=== PATIENT | female | born 1940 | race Caucasian/White ===

== ENCOUNTER 2020-02-07 08:04 | Outpatient (REF) | payer MEDICARE, OTHER, SELFPAY ==
--- NOTE | 2020-02-07 10:24 | MHC.AU.P13 ---
Adult Audiological Evaluation Date of Visit: 02/07/20 Reason for Appointment: Audiological evaluation due to decrease in hearing. Ms. Bedoya reports that she has previously been tested and diagnosed with a mild hearing loss. She has been using [id number] hearing aids that she purchased through a magazine and notes that they work well for her. Does patient feel they have a hearing loss?: Yes If Yes, Which Ear?: Both Ears When Was Hearing Difficulty First Noticed?: Two years ago Has hearing been tested previously?: Yes Previous Hearing Test Results: Tested in [place] in 2018, results not available to be reviewed today. 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 She notes that she got a concussion several years ago. Allergies: Melons Medication List: Losartan 100 mg, Hydrochlorothiazide 25 mg, Baby aspirin 81 mg, Fish oil, Butalbital 25 mg, Metoprolol 25 mg, Clopidogrel 75 mg, Latanoprost 125 mg, Vitamins Otoscopy: Right Ear: Mostly occluded cerumen removed with suction and curette Left Ear: Non-occluding cerumen removed with curette and alligator forceps Tympanometry: Right Ear: Not performed at today's visit Left Ear: Not performed at today's visit Hearing Evaluation: Transducer(s) Used: Circumaural Headphones, Bone Conduction Method: Conventional Audiometry Stimuli Used: Pure Tones Right Ear: Description of Hearing: Normal hearing at 250 Hz, sloping to a mild to moderately severe sensorineural hearing loss from 500-8000 Hz. Left Ear: Description of Hearing: Normal hearing at 250 Hz, sloping to a mild to moderately severe sensorineural hearing loss from 500-8000 Hz. Speech Recognition Threshold (SRT): Method Used: Monitored Live Voice Stimuli Used: Spondee Words Right Ear: 40 dBHL Left Ear: 40 dBHL Word Discrimination: Method: Recorded Lists Word Lists Used: NU-6 Right Ear: 92% at 80 dBHL Left Ear: 80% at 80 dBHL Recommendations: Recommendations: Audiological re-evaluation in one year. Trial with amplification is recommended. Recommendations (Other): Recommend a trial with custom hearing aids if her [id number] hearing aids are no longer meeting her needs. Diagnosis: Primary Diagnosis: H90.3 Bilateral Sensorineural Hearing Loss Secondary Diagnosis: H61.23 Impacted Cerumen, Bilateral Services Performed: Services Performed: Comprehensive Audiological Evaluation (CPT 53111) Signature: Provider: Tamara Kim, CCC-A
== END 2020-02-07 08:05 | disposition home or self-care (01) ==
LOC: HO.SH 08:04
PROVIDERS: PCP Nurse Practitioner Family; Referring Provider Nurse Practitioner Family; Visit Provider Nurse Practitioner Family
DX: H90.3 Sensorineural hearing loss, bilateral (principal); H61.23 Impacted cerumen, bilateral
CPT/HCPCS: 92557

== ENCOUNTER 2020-02-07 09:41 | Outpatient (REF) | payer SELFPAY | END 2020-02-07 09:42 | disposition home or self-care (01) | LOC: HO.HAP 09:41 | PROVIDERS: Visit Provider Nurse Practitioner Family | DX: Z46.1 Encounter for fitting and adjustment of hearing aid (principal); H90.3 Sensorineural hearing loss, bilateral | CPT/HCPCS: 92700 ==

== ENCOUNTER 2021-02-11 08:07 | Outpatient (REF) | payer MEDICARE, OTHER, SELFPAY ==
--- NOTE | 2021-02-13 14:24 | MHC.AU.ANO ---
Adult Audiological Evaluation Date of Visit: 02/11/21 Project Management Intern Used: Not Applicable Reason for Appointment: Audiologic re-evaluation due to increasing speech understanding difficulties. Lina is accompanied today by her daughter Aminah who reports her mother has tried 3 different [id number] hearing devices over the past year. Lina can often hear people talking or sounds from a distance, but is frequently cannot understand what is said. She has difficulty with the fit and comfort of the earpieces of the device. These problems are creating significant frustration and adding to her anxiety. Lina and her daughter report her anxiety is being treated by her physician with a new medication and the dosage was recently increased; however, her symptoms have also increased. Does patient feel they have a hearing loss?: Yes If Yes, Which Ear?: Both Ears Has hearing been tested previously?: Yes Previous Hearing Test Results: Normal hearing at 250 Hz, sloping to a moderately-severe sensorineural hearing loss bilaterally with 92% speech understanding for the right ear and 80% for the left ear. 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 Allergies: Melons Medication List: Escitalopram, Clopidogrel, Hydochlorothiazide, Ezetimibe, Aspirin, Losartan, Metoprolol, Fish Oil, Vitamin C, Multivitamin Otoscopy: Right Ear: Unremarkable Left Ear: Unremarkable Tympanometry and Otoacoustic Emissions Not performed at today's visit to reduce the time of testing as Lina was very anxious today. Hearing Evaluation: Transducer(s) Used: Insert Earphones Bone Conduction Method: Conventional Audiometry Stimuli Used: Pure Tones Right Ear: Description of Hearing: Borderline normal threshold at 250 Hz, sloping to a moderately-severe high frequency sensorineural hearing loss. Left Ear: Description of Hearing: Borderline normal threshold at 250 Hz, sloping to a moderately-severe high frequency sensorineural hearing loss. Speech Recognition Threshold (SRT): Method Used: Monitored Live Voice Stimuli Used: Spondee Words Right Ear: 45 dB HL Left Ear: 45 dB HL Word Discrimination: Method: Recorded Lists Word Lists Used: NU-6 Right Ear: 92% at 85 dB HL Left Ear: 76% at 85 dB HL Comparison: Compared to the most recent evaluation: Thresholds have decreased bilaterally and word discrimination score has decreased in the left ear. Recommendations: Trial with custom [id number] hearing aids are recommended. Medical clearance from a physician is required before fitting. Hearing Aid Fitting will be scheduled when all materials arrive. Audiological re-evaluation in one year. Diagnosis: Primary Diagnosis: H90.3 Bilateral Sensorineural Hearing Loss Services Performed: Comprehensive Audiological Evaluation (CPT 46169) Signature: Provider: Tamara Garcia, CCC-A
--- NOTE | 2021-02-13 14:40 | MHC.AU.HAS ---
Hearing Aid Evaluation Date of Visit: 02/11/21 Historical Information: Description of Hearing: Borderline normal thresholds sloping to a moderately-severe sensorineural hearing loss bilaterally. Current personal amplification information, if applicable: OTC slim tube BTE Summary: Due to difficulty of fit of OTC hearing aids and significant communication difficulties, binaural rechargeable [id number] with canal locks is recommended Hearing Aid Prescription: Based on the individual?s shared listening needs, communication environments, dexterity, desire for connectivity, and personal preferences, the following prescription for amplification has been made: Right ear: Home Health Travel Pt: [employer] Model: Evolve AI 1600 CIC-R with canal lock Battery Size: 312 Color: Chisana Left ear: Left ear prescription to be same as Right Hearing Aid above: Home Health Travel Pt: Jena Model: Evolve AI 1600 CIC-R with canal lock Battery Size: 312 Color: Chis[place] Plan of Care: Patient wishes to purchase hearing aids as prescribed Action Taken/Action Needed: Earmold Impressions Taken Medical Clearance to be requested from PCP/ENT Hearing Instrument Fitting to be scheduled when materials arrive Comments: Primary Diagnosis: H90.3 Bilateral Sensorineural Hearing Loss Signature: Provider: Rayna Garcia, CCC-A
--- NOTE | 2021-02-13 14:42 | MHC.AU.MED ---
Medical Clearance for Hearing Instrumentation Date: 02/13/21 Patient Name: Lina Bedoya Date of : 1940 Primary Care Provider: Referring Provider: Walker Floyd MD We have seen your patient on 02/11/21 and have determined that they are a candidate for amplification (See accompanying report). Specifically, they would benefit from: Hearing aid use in both ears There is a statute that addresses Medical Evaluation Requirements prior to fitting a patient with a hearing aid. According to [place] statute 265 CMR:6.03(1), (a) General. Except as provided in 265 CMR 6.03(1)(b), a hearing aid consultant shall not sell a hearing aid unless the prospective user has presented to the hearing aid consultant a written statement signed by a licensed physician that states that the patient's hearing loss has been medically evaluated and the patient may be considered a candidate for a hearing aid. The medical evaluation must have taken place within the preceding six months. Please note: Due to the [place] Statute referenced above, we cannot accept a signature other than that of a licensed physician. H[employer] VENDOR and PA signatures cannot be accepted. I am in agreement with the above recommendation. There is no medical contraindication for hearing instrumentation. Physician Signature Date Physician Name (Printed)
== END 2021-02-11 08:08 | disposition home or self-care (01) ==
LOC: HO.SH 08:07
PROVIDERS: Visit Provider Internal Medicine
DX: H90.3 Sensorineural hearing loss, bilateral (principal)
CPT/HCPCS: 92557

== ENCOUNTER 2021-02-11 12:50 | Inpatient (IN) | payer MEDICARE, OTHER, SELFPAY ==
[2021-02-11 14:04] VITALS: BP 163/76; PULSE 80; RESP 18; TEMP 36.6; O2SAT 99; BMI 19.6
--- NOTE | 2021-02-11 17:03 | ED_ITS ---
HPI - General Adult General Chief complaint: General Medical Stated complaint: Anxiety Time Seen by Provider: 02/11/21 16:48 Source: patient and family (Daughter) Mode of arrival: ambulatory Limitations: no limitations History of Present Illness HPI narrative: Patient comes to emergency room complaining of worsening anxiety. Patient was started on Lexapro 5 mg 2 weeks ago, since it was not having any significant affect, less than a week ago it was increased to 10 mg. The patient's daughter reports that since then, the patient is more anxious, having panic attacks, seems to be more confused. Patient denies auditory or visual hallucinations. Related Data Allergies Allergy/AdvReac Type Severity Reaction Status Date / Time melons Allergy Unknown throat Uncoded 08/13/11 00:00 sweling Review of Systems Review of Systems: Constitutional : No Weight loss, No Fever, No Chills, No Night Sweats, No Fatigue, No Malaise ENT/Mouth : No Hearing loss, No Ear Pain, No Nasal Congestion, No Sinus Pain, No Hoarseness, No sore throat, No Rhinorrhea, No Swallowing Difficulty Eyes: No Eye Pain, No Swelling, No Redness, No Foreign Body, No Discharge, No Vision Changes Cardiovascular : No Chest Pain, No SOB, No Dyspnea on Exertion, No Orthopnea, No Edema, No Palpitations Respiratory : No Cough, No Sputum, No Wheezing, No Smoke Exposure, No Dyspnea Gastrointestinal : No Nausea, No Vomiting, No Diarrhea, No Constipation, No abdominal Pain, No Hematochezia, No Melena Genitourinary : no irregular bleeding, No Dysuria, No Urinary Frequency, No Hematuria, No Urinary Incontinence, No Urgency, No Flank Pain, No Urinary Flow Changes, No Hesitancy Musculoskeletal : No joint pain, No Myalgias, No Joint Swelling Skin : No Skin Lesions, No rash Neuro : No Weakness, No Numbness, No Paresthesias, No Loss of Consciousness, No Dizziness, No Headache Psych : Complaining of anxiety, panic attacks, No Depression, No SI/HI/AH/VH, No Social Issues, Heme/Lymph: No Bruising, No Bleeding,No Lymphadenopathy Endocrine : No Polyuria, No Polydipsia, No Temperature Intolerance PMFSH Past Medical History Medical History HTN (hypertension) Myocardial infarct, old Surgical History H/O heart artery stent Social History Social History Advance Directives: Yes Advance Directives Information Provided: No Advance Directives on File: No Physical Exam Vital Signs: Vital Signs: Last Vital Signs Temp 97.1 F 02/11/21 17:24 Pulse 74 02/11/21 17:24 Resp 16 02/11/21 17:24 BP 194/80 H 02/11/21 17:24 Pulse Ox 97 02/11/21 17:24 Body Mass Index 19.6 Const: Other: Appearance: Alert. Oriented X3. Seems very anxious, noted she keeps drinking water , but said away for a few seconds, . Bottle water again and drinks a few sips and repeats Eyes: Pupils equal, round and reactive to light. ENT: Pharynx normal. Neck: Normal inspection. Neck supple. No lymph nodes noted. No crepitus CVS: Normal heart rate and rhythm. Pulses normal. Normal S1 and S2, loud +3 sys tolic murmur latter in the right sternal border Respiratory: No respiratory distress. Breath sounds normal. No Wheezing. No rales Abdomen: Soft and nontender. No rigidity. No distention. good BS x4 Skin: Skin warm and dry. Normal skin color. Normal skin turgor. Extremities: No lower extremity edema.No Lacerations. No Rash Neuro: Oriented X 3. No motor deficit. No sensory deficit. Moving all extermities. No slurred speech. Course Course Course Narrative: I discussed with the patient's daughter that the patient's symptoms might not be just related to anxiety. Patient may have an electrolyte abnormality if she is drinking too much water, hyponatremia can cause confusion. Also she may have a urinary tract infection. In the meantime, I asked the patient's daughter to remove all fluids from the patient's reach. A suspected, sodium is 116. Nephrology consult pending. 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 At this time, there was a critical shortage in ICU beds at [facility], no transfers are being taken at [facility] due to the same issue, as well as [facility]. I spoke with Dr. Meyer from nephrology. Given our current situation, patient will be going to the floor. Patient will be started on 30 g of urea powder PO b.i.d., patient will be NPO except meds until the morning, patient needs to be in a telemetry bed, sodium needs to be monitored every 4 hours, goal is to increase the sodium to 126 by 19:30 tomorrow I discussed the patient with our hospitalist Dr. Looney. Patient admitted to the floor, any acute changes in labs are to be reported immediately to Dr. Meyer Medical Decision Making Lab Data Result diagrams: 02/11/21 17:35 02/11/21 17:35 Labs: Lab Results 02/11/21 02/11/21 02/11/21 Range/Units 17:35 17:35 17:35 WBC 7.8 (4.8-10.8) X10*3/uL RBC 3.87 L (4.20-5.50) X10*6/uL Hgb 12.1 (12.0-16.0) g/dl Hct 33.2 L (37.0-47.0) % MCV 85.8 (80.0-98.0) fL MCH 31.3 (27.0-33.0) pg MCHC 36.4 H (31.0-35.0) g/dl RDW 11.8 (11.0-16.0) % Plt Count 368 (160-400) X10*3/uL MPV 7.8 L (9.4-12.3) fL Immature Gran % (Auto) 0.3 (0.0-0.4) % Neut % (Auto) 60.2 (45-73) % Lymph % (Auto) 28.7 (20-40) % [place] % (Auto) 9.7 (2-11) % Eos % (Auto) 0.8 (0-4) % Baso % (Auto) 0.3 (0-2) % Lymph # (Auto) 2.2 (1.2-4.9) X10*3/uL [place] # (Auto) 0.8 (0.1-1.2) X10*3/uL Eos # (Auto) 0.1 (0.0-0.4) X10*3/uL Baso # (Auto) 0.0 (0.0-0.2) X10*3/uL Abs Immat Gran (auto) 0.02 (0.00-0.03) X10*3/uL Absolute Neuts (auto) 4.7 (2.0-8.3) x10*3/uL Absolute Nucleated RBC 0.000 (0.0-0.012) X10*3/uL Nucleated RBC % (auto) 0.0 (0.0-0.2) /100WBC Sodium 116 L* (135-145) mmol/L Potassium 2.9 L (3.3-5.1) mmol/L Chloride 81 L (96-108) mmol/L Carbon Dioxide 25 (22-29) mmol/L Anion Gap 13 (12-20) BUN 8 L (9-16) mg/dL Creatinine 0.61 (0.5-1.4) mg/dL Estim Creat Clear Calc 55.7 Estimated GFR > 60 Random Glucose 155 H (60-115) mg/dL Calcium 9.0 (8.4-10.2) mg/dL Total Bilirubin 0.5 (0.0-1.0) mg/dL Direct Bilirubin 0.2 (0.0-0.5) mg/dL AST 21 (5-31) U/L ALT 18 (0-31) U/L Alkaline Phosphatase 83 (39-117) U/L Total Protein 6.6 (6.5-8.0) g/dL Albumin 4.2 (3.5-5.0) g/dL Urine Color STRAW Urine Appearance CLEAR Urine pH 7.0 (5.0-8.0) Ur Specific [place] <= 1.005 (1.005-1.025) Urine Protein NEG (NEG-TRACE) MG/DL Urine Glucose (UA) NEG (NEG) MG/DL Urine Ketones 5 (NEG) MG/DL Urine Blood NEG (NEG) Urine Nitrite NEG (NEG) Ur Leukocyte Esterase NEG (NEG) Urine Opiates Screen (Not Detect) Urine Fentanyl Screen (Not Detect) Ur Barbiturates Screen (Not Detect) Ur Phencyclidine Scrn (Not Detect) Ur Amphetamines Screen (Not Detect) U Benzodiazepines Scrn (Not Detect) Urine Cocaine Screen (Not Detect) U Marijuana (THC) Screen (Not Detect) 02/11/21 Range/Units 17:35 WBC (4.8-10.8) X10*3/uL RBC (4.20-5.50) X10*6/uL Hgb (12.0-16.0) g/dl Hct (37.0-47.0) % MCV (80.0-98.0) fL MCH (27.0-33.0) pg MCHC (31.0-35.0) g/dl RDW (11.0-16.0) % Plt Count (160-400) X10*3/uL MPV (9.4-12.3) fL Immature Gran % (Auto) (0.0-0.4) % Neut % (Auto) (45-73) % Lymph % (Auto) (20-40) % [place] % (Auto) (2-11) % Eos % (Auto) (0-4) % Baso % (Auto) (0-2) % Lymph # (Auto) (1.2-4.9) X10*3/uL [place] # (Auto) (0.1-1.2) X10*3/uL Eos # (Auto) (0.0-0.4) X10*3/uL Baso # (Auto) (0.0-0.2) X10*3/uL Abs Immat Gran (auto) (0.00-0.03) X10*3/uL Absolute Neuts (auto) (2.0-8.3) x10*3/uL Absolute Nucleated RBC (0.0-0.012) X10*3/uL Nucleated RBC % (auto) (0.0-0.2) /100WBC Sodium (135-145) mmol/L Potassium (3.3-5.1) mmol/L Chloride (96-108) mmol/L Carbon Dioxide (22-29) mmol/L Anion Gap (12-20) BUN (9-16) mg/dL Creatinine (0.5-1.4) mg/dL Estim Creat Clear Calc Estimated GFR Random Glucose (60-115) mg/dL Calcium (8.4-10.2) mg/dL Total Bilirubin (0.0-1.0) mg/dL Direct Bilirubin (0.0-0.5) mg/dL AST (5-31) U/L ALT (0-31) U/L Alkaline Phosphatase (39-117) U/L Total Protein (6.5-8.0) g/dL Albumin (3.5-5.0) g/dL Urine Color Urine Appearance Urine pH (5.0-8.0) Ur Specific [place] (1.005-1.025) Urine Protein (NEG-TRACE) MG/DL Urine Glucose (UA) (NEG) MG/DL Urine Ketones (NEG) MG/DL Urine Blood (NEG) Urine Nitrite (NEG) Ur Leukocyte Esterase (NEG) Urine Opiates Screen Not Detected (Not Detect) Urine Fentanyl Screen Not Detected (Not Detect) Ur Barbiturates Screen Not Detected (Not Detect) Ur Phencyclidine Scrn Not Detected (Not Detect) Ur Amphetamines Screen Not Detected (Not Detect) U Benzodiazepines Scrn Not Detected (Not Detect) Urine Cocaine Screen Not Detected (Not Detect) U Marijuana (THC) Screen Not Detected (Not Detect) Critical Care Time Critical Care Time Critical Care Time: Yes Total Critical Care Time: 50 Attestation: 50 minutes were spent in direct patient care, specialist consult and stabilization. Discharge Plan Discharge Clinical Impression: Syndrome of inappropriate ADH (SIADH) secretion, Hyponatremia, Altered mental status Patient Disposition: Admitted As Inpatient
[2021-02-11 17:24] VITALS: BP 194/80; PULSE 74; RESP 16; TEMP 36.2; O2SAT 97
[2021-02-11 17:39] LABS: MANUAL DIFF FLAG NO
[2021-02-11 17:40] LABS: Basophils Percent Auto 0.3 % (0-2); Eosinophils Absolute Auto 0.1 X10*3/uL (0.0-0.4); Eosinophils Percent Auto 0.8 % (0-4); Hematocrit 33.2 % (37.0-47.0); Hemoglobin 12.1 g/dl (12.0-16.0); Imm Gran Abs Auto 0.02 X10*3/uL (0.00-0.03); Imm Gran Pct Auto 0.3 % (0.0-0.4); Lymphocytes Absolute Auto 2.2 X10*3/uL (1.2-4.9); Lymphocytes Percent Auto 28.7 % (20-40); Mean Corpuscular HGB Conc 36.4 g/dl (31.0-35.0); Mean Corpuscular Hemoglobin 31.3 pg (27.0-33.0); Mean Corpuscular Volume 85.8 fL (80.0-98.0); Mean Platelet Volume 7.8 fL (9.4-12.3); Monocytes Absolute Auto 0.8 X10*3/uL (0.1-1.2); Monocytes Percent Auto 9.7 % (2-11); Neutrophils Absolute Auto 4.7 x10*3/uL (2.0-8.3); Neutrophils Percent Auto 60.2 % (45-73); Platelet Count 368 X10*3/uL (160-400); Red Blood Count 3.87 X10*6/uL (4.20-5.50); Red Cell Distribution Width 11.8 % (11.0-16.0); White Blood Count 7.8 X10*3/uL (4.8-10.8)
[2021-02-11 17:41] LABS: Appearance Urine CLEAR; Color Urine STRAW; Glucose Urine UA NEG (NEG); Leukocyte Esterase Urine NEG (NEG); Nitrite Urine NEG (NEG); Specific Gravity - Urine <= 1.005 (1.005-1.025); Urine Blood NEG (NEG); Urine Ketones 5 MG/DL (NEG); Urine Protein NEG (NEG-TRACE)
[2021-02-11 18:11] LABS: Alanine Aminotransferase 18 U/L (0-31); Albumin Level 4.2 g/dL (3.5-5.0); Alkaline Phosphatase 83 U/L (39-117); Anion Gap 13 (12-20); Aspartate Amino Transferase 21 U/L (5-31); Bilirubin Direct 0.2 mg/dL (0.0-0.5); Bilirubin Total 0.5 mg/dL (0.0-1.0); Blood Urea Nitrogen 8 mg/dL (9-16); Carbon Dioxide 25 mmol/L (22-29); Chloride 81 mmol/L (96-108); Creatinine Clr Calc Pharmacy 55.7; Estimated Glomerular Filt Rate > 60; Glucose Random 155 mg/dL (60-115); Potassium 2.9 mmol/L (3.3-5.1); Sodium 116 mmol/L (135-145); Total Protein 6.6 g/dL (6.5-8.0)
--- NOTE | 2021-02-11 18:15 | PC.NURSE ---
pt is alert. oriented to person and place only. daughter present and assisting. pt is disorganized, talking of things that have a thread of reality but not with clarity or connection. skin pwd. slightly unsteady on feet.
--- NOTE | 2021-02-11 18:30 | PC.NURSE ---
pt states he's feeliong better than yesterday . up with steady gait to BR. reports urinating w/o diff. unlabored resp. fluids infusing.
[2021-02-11 18:37] LABS: Amphetamine Screen Urine Not Detected (Not Detect); Barbiturates, Urine Not Detected (Not Detect); Benzodiazepines Screen Urine Not Detected (Not Detect); Cannabinoid Screen Urine Not Detected (Not Detect); Cocaine Screen Urine Not Detected (Not Detect); Fentanyl, urine Not Detected (Not Detect); Opiate Screen Urine Not Detected (Not Detect); Phencyclidine Screen Urine Not Detected (Not Detect)
--- NOTE | 2021-02-11 19:24 | ECG_ITS ---
Test Reason : ANXIETY Blood Pressure : / mmHG Vent. Rate : 080 BPM Atrial Rate : 080 BPM P-R Int : 182 ms QRS Dur : 080 ms QT Int : 438 ms P-R-T Axes : 045 016 013 degrees QTc Int : 505 ms Normal sinus rhythm Nonspecific ST abnormality Prolonged QT Abnormal ECG When compared with ECG of 29-SEP-2004 09:56, QT has lengthened ST changes more prominent Referred By: Elisa Shook Electronically Signed By:DAKOTA OROZCO
--- NOTE | 2021-02-11 19:37 | P.HPHOSP_ITS ---
History of Present Illness Date of Service: 02/11/21 Chief Complaint: anxiety this is a 80 yo F with pmhx of anxiety, HTN, CAD, who presents to the hospital with severe anxiety, feeling overwhelmed. Her daughter at bedside reports that patient for Will, she had a workup at her PCPs office for dementia but her d ementia questionnaire did not show any significant dementia, and patient was diagnosed with depression and started on Lexapro. Her Lexapro was recently increased but pt has remained significantly anxious and overwhelmed. she has also been drinking significant amount of water because her daughter was concerned that she may not be eating or drinking well. On my exam patient appears very anxious, keeps repeating that she forgot to put her name and give her address to the [facility] who is currently working on her with, she is hard to focus but answers questions appropriately otherwise. She denies having any chest pain, no abdominal pain, no nausea or vomiting, no diarrhea constipation, no urinary symptoms and no lower extremity edema. On arrival to the ED patient hemodynamically stable with no significant abnormal vitals Labs are significant for WBC count of 7.8, hemoglobin of 12.1, hematocrit 33.2, sodium of 116, potassium of 2.9, chloride level of 81, BUN of 8, creatinine of 0.61, serum osmolality of 249, urine osmolality of 213, urology was consulted, initially stated that she needs to be completely NPO, and given 1 dose of urea. patient will be admitted for further manage Review of Systems Review of Systems: Yes all other systems are reviewed and are negative [facility] Medical History HTN (hypertension) Myocardial infarct, old Pertinent family history: heart disease in [facility] she is not sure what type Surgical History H/O heart artery stent Social History Advance Directives: Yes Advance Directives Information Provided: No Advance Directives on File: No Meds Allergies Allergy/AdvReac Type Severity Reaction Status Date / Time melons Allergy Unknown throat Uncoded 08/13/11 00:00 sweling Active Medications: Current Medications Pharmacy Consult (Consult Rx Perform Med Rec) 1 each MISCELLANE ONCE PRN PRN Reason: Consult order Home Medications Medication Instructions Recorded Confirmed Last Taken Type aspirin 81 mg tablet 81 mg PO DAILY 02/11/21 02/11/21 02/11/21 History clopidogrel 75 mg tablet 75 mg PO DAILY 02/11/21 02/11/21 02/11/21 History escitalopram oxalate 10 mg tablet 1 tab PO DAILY 02/11/21 02/11/21 02/11/21 History ezetimibe 10 mg tablet 10 mg PO DAILY 02/11/21 02/11/21 02/11/21 History hydrochlorothiazide 25 mg tablet 25 mg PO DAILY 02/11/21 02/11/21 02/11/21 History losartan 100 mg tablet 100 mg PO DAILY 02/11/21 02/11/21 02/11/21 History melatonin 3 mg tablet 1 tab PO BEDTIME PRN 02/11/21 02/11/21 02/10/21 History metoprolol succinate 25 mg 25 mg PO DAILY 02/11/21 02/11/21 02/11/21 History tablet,extended release 24 hr timolol maleate 0.5 % eye drops 1 drp OPHTHALMIC-RIGHT DAILY 02/11/21 02/11/21 02/11/21 History Physical Exam Vital Signs and Narrative: Vital Signs: Last Vital Signs Temp 97.1 F 02/11/21 17:24 Pulse 74 02/11/21 17:24 Resp 16 02/11/21 17:24 BP 194/80 H 02/11/21 17:24 Pulse Ox 97 02/11/21 17:24 Body Mass Index 19.6 Const: Other: very anxious General: cooperative and no acute distress Orientation/consciousness: patient oriented x3 Eyes: General: appearance normal, both eyes and all related structures Resp: Effort & Inspection: normal respiratory effort Auscultation: clear to auscultation bilaterally Cardio: Rate: regular rate Rhythm: regular rhythm GI: Palpation (GI): Soft to palpation Auscultation: normal bowel sounds Skin: General skin exam: no rashes or lesions noted Neuro: General: patient oriented x3 Cognition (Neuro): normal cognition Extrem: General: Yes normal to inspection and Yes no pedal edema Results Labs CBC and Chem 7: 02/11/21 17:35 02/12/21 01:58 Labs: Laboratory Results - last 24 hr 02/11/21 02/11/21 02/11/21 17:35 17:35 17:35 MCV 85.8 MCH 31.3 MCHC 36.4 H RDW 11.8 Plt Count 368 MPV 7.8 L Immature Gran % (Auto) 0.3 Neut % (Auto) 60.2 Lymph % (Auto) 28.7 [place] % (Auto) 9.7 Eos % (Auto) 0.8 Baso % (Auto) 0.3 Lymph # (Auto) 2.2 [place] # (Auto) 0.8 Eos # (Auto) 0.1 Baso # (Auto) 0.0 Abs Immat Gran (auto) 0.02 Absolute Neuts (auto) 4.7 Absolute Nucleated RBC 0.000 Nucleated RBC % (auto) 0.0 Sodium 116 L* Anion Gap 13 Estim Creat Clear Calc 55.7 Estimated GFR > 60 Random Glucose 155 H Calcium 9.0 Total Bilirubin 0.5 Direct Bilirubin 0.2 AST 21 ALT 18 Alkaline Phosphatase 83 Total Protein 6.6 Albumin 4.2 Urine Color STRAW Urine Appearance CLEAR Urine pH 7.0 Ur Specific [place] <= 1.005 Urine Protein NEG Urine Glucose (UA) NEG Urine Ketones 5 Urine Blood NEG Urine Nitrite NEG Ur Leukocyte Esterase NEG Urine Opiates Screen Urine Fentanyl Screen Ur Barbiturates Screen Ur Phencyclidine Scrn Ur Amphetamines Screen U Benzodiazepines Scrn Urine Cocaine Screen U Marijuana (THC) Screen 02/11/21 17:35 MCV MCH MCHC RDW Plt Count MPV Immature Gran % (Auto) Neut % (Auto) Lymph % (Auto) [place] % (Auto) Eos % (Auto) Baso % (Auto) Lymph # (Auto) [place] # (Auto) Eos # (Auto) Baso # (Auto) Abs Immat Gran (auto) Absolute Neuts (auto) Absolute Nucleated RBC Nucleated RBC % (auto) Sodium Anion Gap Estim Creat Clear Calc Estimated GFR Random Glucose Calcium Total Bilirubin Direct Bilirubin AST ALT Alkaline Phosphatase Total Protein Albumin Urine Color Urine Appearance Urine pH Ur Specific [place] Urine Protein Urine Glucose (UA) Urine Ketones Urine Blood Urine Nitrite Ur Leukocyte Esterase Urine Opiates Screen Not Detected Urine Fentanyl Screen Not Detected Ur Barbiturates Screen Not Detected Ur Phencyclidine Scrn Not Detected Ur Amphetamines Screen Not Detected U Benzodiazepines Scrn Not Detected Urine Cocaine Screen Not Detected U Marijuana (THC) Screen Not Detected Assessment and Plan (1) Hyponatremia: Status: Acute (2) Severe anxiety: Status: Acute (3) Hypokalemia: Status: Acute this 80-year-old female who presents to the hospital with severe anxiety found to have hyponatremia # hyponatremia - most likely secondary to increased water intake and poor diet - per daughter patient has been drinking a lot of water and has not been eating well - has low serum osmolality and low urea - initially patient was placed on NPO, and nephrology recommended urea 30 mg b.i.d.. Patient received 1 dose of urea in the ED. - Rate of correction 126 in 24 hour - will follow BMP q.4 hours - nephrology following # severe anxiety - unclear etiology - per jules dementia work up has been negative - Pt will need op folloow up prior to discharge # hypokalemia - repleted - improved # Htn - stbale - will hold losartan as well as hydrochlorothiazide at this time given her hyponatremia - wounds sodium improve, consider resuming home medications # history of coronary artery disease status post stent placement - continue Plavix and aspirin DVT prophylaxis: SonoPlot Quality Stroke Does the patient have a stroke diagnosis?: No VTE Prior VTE?: No VTE Risk Level:: Medical - moderate - high VTE Device Contraindication: Treatment Not Indicated VTE Drug Contraindication: N/A - Med Ordered
--- NOTE | 2021-02-11 19:49 | PHA.MEDREC ---
Pharmacy Consult ? Medication Reconciliation Pharmacy has completed the medication reconciliation.
[2021-02-11 20:08] VITALS: BP 180/73; PULSE 77; RESP 3; TEMP 36.7; O2SAT 95
[2021-02-11] MEDS: Potassium Chloride Packet 20 MEQ PACKET 40 MEQ PO (20:11)
[2021-02-11] MEDS: LORazepam 0.5 MG TABLET PO (20:11)
[2021-02-11 20:23] LABS: Uric Acid 1.6 mg/dL (2.4-5.7)
--- NOTE | 2021-02-11 20:23 | PC.NURSE ---
pharmacy called for urea.
[2021-02-11] MEDS: Urea 15 GM POWDER 30 GM PO (20:27)
[2021-02-11 20:32] LABS: Osmolality Urine 213 mosm/kg (373-1093); Osmolality, Serum 249 mosm/kg (281-305)
[2021-02-11 20:43] LABS: Thyroid Stimulating Hormone 0.67 uIU/mL (0.32-4.0)
[2021-02-11 22:42] LABS: Blood Urea Nitrogen 58 mg/dL (9-16); Creatinine Clr Calc Pharmacy 53.9; Estimated Glomerular Filt Rate > 60; Glucose Random 112 mg/dL (60-115)
[2021-02-11 22:49] LABS: Anion Gap 12 (12-20); Carbon Dioxide 28 mmol/L (22-29); Chloride 86 mmol/L (96-108); Sodium 122 mmol/L (135-145)
[2021-02-11 23:12] VITALS: BP 102/49; PULSE 65; RESP 16; O2SAT 100
[2021-02-11] MEDS: Enoxaparin Sodium 40 MG/0.4 ML SYRINGE SUBCUT (23:22)
[2021-02-12] VITALS (9 sets, daily range): BP systolic 109–170; BP diastolic 60–89; PULSE 67–104; RESP 16–20; TEMP 36.4–36.9; O2SAT 96–98
[2021-02-12 02:40] LABS: Anion Gap 15 (12-20); Blood Urea Nitrogen 46 mg/dL (9-16); Calcium 9.5 mg/dL (8.4-10.2); Carbon Dioxide 25 mmol/L (22-29); Chloride 88 mmol/L (96-108); Creatinine Clr Calc Pharmacy 47.8; Estimated Glomerular Filt Rate > 60; Glucose Random 107 mg/dL (60-115); Potassium 4.1 mmol/L (3.3-5.1); Sodium 124 mmol/L (135-145)
[2021-02-12 06:32] LABS: MANUAL DIFF FLAG NO
[2021-02-12] MEDS: Dextrose 5 % 1,000 ML 100 ML IVCONT (06:36)
[2021-02-12] MEDS: Acetaminophen 325 MG TABLET 650 MG PO (06:40)
[2021-02-12 06:54] LABS: Anion Gap 16 (12-20); Blood Urea Nitrogen 32 mg/dL (9-16); Calcium 9.7 mg/dL (8.4-10.2); Carbon Dioxide 23 mmol/L (22-29); Chloride 90 mmol/L (96-108); Creatinine Clr Calc Pharmacy 49.2; Estimated Glomerular Filt Rate > 60; Glucose Random 115 mg/dL (60-115); Potassium 3.7 mmol/L (3.3-5.1); Sodium 125 mmol/L (135-145)
[2021-02-12 07:03] LABS: Basophils Percent Auto 0.5 % (0-2); Eosinophils Percent Auto 0.2 % (0-4); Hematocrit 34.8 % (37.0-47.0); Hemoglobin 12.4 g/dl (12.0-16.0); Imm Gran Abs Auto 0.04 X10*3/uL (0.00-0.03); Imm Gran Pct Auto 0.7 % (0.0-0.4); Lymphocytes Absolute Auto 1.8 X10*3/uL (1.2-4.9); Lymphocytes Percent Auto 29.2 % (20-40); Mean Corpuscular HGB Conc 35.6 g/dl (31.0-35.0); Mean Corpuscular Hemoglobin 30.9 pg (27.0-33.0); Mean Corpuscular Volume 86.8 fL (80.0-98.0); Mean Platelet Volume 8.3 fL (9.4-12.3); Monocytes Absolute Auto 0.7 X10*3/uL (0.1-1.2); Monocytes Percent Auto 10.8 % (2-11); Neutrophils Absolute Auto 3.5 x10*3/uL (2.0-8.3); Neutrophils Percent Auto 58.6 % (45-73); Platelet Count 428 X10*3/uL (160-400); Red Blood Count 4.01 X10*6/uL (4.20-5.50); Red Cell Distribution Width 11.9 % (11.0-16.0)
--- NOTE | 2021-02-12 07:18 | PC.NURSE ---
sleeping and easily woken, nad, no complaints
[2021-02-12] MEDS: Clopidogrel Bisulfate 75 MG TABLET PO (09:06)
[2021-02-12] MEDS: Metoprolol Succinate ER 25 MG TAB.ER.24H PO (09:06)
[2021-02-12] MEDS: Ezetimibe 10 MG TABLET PO (09:08)
[2021-02-12] MEDS: Aspirin 81 MG TAB.CHEW PO (09:08)
[2021-02-12] MEDS: 0.9 % Sodium Chloride Flush 3 ML SYRINGE IVFLUSH ×2 (09:13→20:15)
[2021-02-12 10:08] LABS: Anion Gap 15 (12-20); Blood Urea Nitrogen 28 mg/dL (9-16); Calcium 9.5 mg/dL (8.4-10.2); Carbon Dioxide 23 mmol/L (22-29); Chloride 89 mmol/L (96-108); Creatinine Clr Calc Pharmacy 44.6; Estimated Glomerular Filt Rate > 60; Glucose Random 134 mg/dL (60-115); Potassium 3.7 mmol/L (3.3-5.1); Sodium 123 mmol/L (135-145)
[2021-02-12] MEDS: timoloL maleate 0.5 % Oph Sol 5 ML DRBTL 1 DROP EYE-RIGHT (11:08)
--- NOTE | 2021-02-12 11:10 | HO.PM.IMPN ---
Subjective Subjective Date of Service: 02/12/21 Interval History: Admitted Overnight with diagnosis of significant hyponatremia anxiety, a present patient is resting comfortably awake alert no confusion denies nausea, vomiting, no abdominal pain, no diarrhea, no headache, no dizziness, just woke up from sleep son at bedside. Review of Systems General no headache, no dizziness no fever chills. CVS no chest pain, no palpitation. Respiratory no cough, no sob. Gastrointestinal no nausea no vomiting, no abdominal pain Musculoskeletal no pain no urinary frequency no urgency Review of Systems: Yes all other systems are reviewed and are negative Physical Exam Vital Signs: Vital Signs: Last Vital Signs Temp 98.0 F 02/11/21 20:08 Pulse 100 02/12/21 09:13 Resp 19 02/12/21 09:13 BP 126/78 02/12/21 09:13 Pulse Ox 97 02/12/21 09:13 BMI result Body Mass Index 19.6 General awake alert x3,no acute distress. Neck supple,no JVD. CVS regular rate rhythm, Respiratory lungs clear to auscultation, no respiratory distress, no wheeze, no rhonchi. Gastrointestinal abdomen soft, nontender, bowel sounds audible, no guarding , no rigidity. Extremities no edema. Neuro nonfocal ,speech clear. Skin no rash Psych appropriate affect Objective Data Active Medications Acetaminophen (Acetaminophen 325 Mg Tablet) 650 mg PO Q6H PRN PRN Reason: Pain, Mild (Pain Scale 1-3) Last Admin: 02/12/21 06:40 Dose: 650 mg Documented by: TOBI Aspirin (Aspirin 81 Mg Tab.Chew) 81 mg PO DAILY [facility] Last Admin: 02/12/21 09:08 Dose: 81 mg Documented by: MARINA Clopidogrel Bisulfate (Clopidogrel Bisulfate 75 Mg Tablet) 75 mg PO DAILY [facility] Last Admin: 02/12/21 09:06 Dose: 75 mg Documented by: MARINA Docusate Sodium (Docusate Sodium 100 Mg Capsule) 100 mg PO DAILY PRN PRN Reason: Constipation Ezetimibe (Ezetimibe 10 Mg Tablet) 10 mg PO DAILY [facility] Last Admin: 02/12/21 09:08 Dose: 10 mg Documented by: MARINA Enoxaparin Sodium (Enoxaparin Sodium 40 Mg/0.4 Ml Syringe) 40 mg SUBCUT Q24H [facility] Last Admin: 02/11/21 23:22 Dose: 40 mg Documented by: TOBI Melatonin (Melatonin 3 Mg Tablet) 3 mg PO BEDTIME PRN PRN Reason: insomnia Metoprolol Succinate (Metoprolol Succinate Er 25 Mg Tab.Er.24h) 25 mg PO DAILY [facility]; Protocol Last Admin: 02/12/21 09:06 Dose: 25 mg Documented by: MARINA Ondansetron HCl (Ondansetron Hcl 4 Mg/2 Ml Vial) 4 mg IVPUSH Q8H PRN PRN Reason: Nausea and Vomiting Pharmacy Consult (Consult Rx Perform Med Rec) 1 each MISCELLANE ONCE PRN PRN Reason: Consult order Sodium Chloride (0.9 % Sodium Chloride Flush 3 Ml Syringe) 3 ml IVFLUSH QSHIFT [facility] Last Admin: 02/12/21 09:13 Dose: 3 ml Documented by: MARINA Timolol Maleate (Timolol Maleate 0.5 % Oph Cathryn 5 Ml Drbtl) 1 drop EYE-RIGHT DAILY [facility] Last Admin: 02/12/21 11:08 Dose: 1 drop Documented by: DAIANA Labs CBC & Chem 7: 02/12/21 06:26 02/12/21 09:21 Labs: Laboratory Results - last 24 hr 02/11/21 02/11/21 02/11/21 17:35 17:35 17:35 MCV 85.8 MCH 31.3 MCHC 36.4 H RDW 11.8 Plt Count 368 MPV 7.8 L Immature Gran % (Auto) 0.3 Neut % (Auto) 60.2 Lymph % (Auto) 28.7 Weston % (Auto) 9.7 Eos % (Auto) 0.8 Baso % (Auto) 0.3 Lymph # (Auto) 2.2 Weston # (Auto) 0.8 Eos # (Auto) 0.1 Baso # (Auto) 0.0 Abs Immat Gran (auto) 0.02 Absolute Neuts (auto) 4.7 Absolute Nucleated RBC 0.000 Nucleated RBC % (auto) 0.0 Anion Gap 13 Estim Creat Clear Calc 55.7 Estimated GFR > 60 Random Glucose 155 H Osmolality Uric Acid 1.6 L Calcium 9.0 Total Bilirubin 0.5 Direct Bilirubin 0.2 AST 21 ALT 18 Alkaline Phosphatase 83 Total Protein 6.6 Albumin 4.2 TSH 0.67 Urine Color STRAW Urine Appearance CLEAR Urine pH 7.0 Ur Specific [place] <= 1.005 Urine Protein NEG Urine Glucose (UA) NEG Urine Ketones 5 Urine Blood NEG Urine Nitrite NEG Ur Leukocyte Esterase NEG Urine Osmolality Ur Random Sodium Urine Opiates Screen Urine Fentanyl Screen Ur Barbiturates Screen Ur Phencyclidine Scrn Ur Amphetamines Screen U Benzodiazepines Scrn Urine Cocaine Screen U Marijuana (THC) Screen 02/11/21 02/11/21 02/11/21 17:35 20:12 20:12 MCV MCH MCHC RDW Plt Count MPV Immature Gran % (Auto) Neut % (Auto) Lymph % (Auto) West[place] % (Auto) Eos % (Auto) Baso % (Auto) Lymph # (Auto) [place] # (Auto) Eos # (Auto) Baso # (Auto) Abs Immat Gran (auto) Absolute Neuts (auto) Absolute Nucleated RBC Nucleated RBC % (auto) Anion Gap Estim Creat Clear Calc Estimated GFR Random Glucose Osmolality 249 L Uric Acid Calcium Total Bilirubin Direct Bilirubin AST ALT Alkaline Phosphatase Total Protein Albumin TSH Urine Color Urine Appearance Urine pH Ur Specific [place] Urine Protein Urine Glucose (UA) Urine Ketones Urine Blood Urine Nitrite Ur Leukocyte Esterase Urine Osmolality 213 L Ur Random Sodium Urine Opiates Screen Not Detected Urine Fentanyl Screen Not Detected Ur Barbiturates Screen Not Detected Ur Phencyclidine Scrn Not Detected Ur Amphetamines Screen Not Detected U Benzodiazepines Scrn Not Detected Urine Cocaine Screen Not Detected U Marijuana (THC) Screen Not Detected 02/11/21 02/11/21 02/11/21 20:12 22:17 22:18 MCV MCH MCHC RDW Plt Count MPV Immature Gran % (Auto) Neut % (Auto) Lymph % (Auto) [place] % (Auto) Eos % (Auto) Baso % (Auto) Lymph # (Auto) [place] # (Auto) Eos # (Auto) Baso # (Auto) Abs Immat Gran (auto) Absolute Neuts (auto) Absolute Nucleated RBC Nucleated RBC % (auto) Anion Gap 12 Estim Creat Clear Calc 53.9 Estimated GFR > 60 Random Glucose 112 Osmolality Uric Acid Calcium 10.0 D Total Bilirubin Direct Bilirubin AST ALT Alkaline Phosphatase Total Protein Albumin TSH 1.40 Cancelled Urine Color Urine Appearance Urine pH Ur Specific [place] Urine Protein Urine Glucose (UA) Urine Ketones Urine Blood Urine Nitrite Ur Leukocyte Esterase Urine Osmolality Ur Random Sodium 40.0 Urine Opiates Screen Urine Fentanyl Screen Ur Barbiturates Screen Ur Phencyclidine Scrn Ur Amphetamines Screen U Benzodiazepines Scrn Urine Cocaine Screen U Marijuana (THC) Screen 02/12/21 02/12/21 02/12/21 01:58 06:26 06:26 MCV 86.8 MCH 30.9 MCHC 35.6 H RDW 11.9 Plt Count 428 H MPV 8.3 L Immature Gran % (Auto) 0.7 H Neut % (Auto) 58.6 Lymph % (Auto) 29.2 [place] % (Auto) 10.8 Eos % (Auto) 0.2 Baso % (Auto) 0.5 Lymph # (Auto) 1.8 [place] # (Auto) 0.7 Eos # (Auto) 0.0 Baso # (Auto) 0.0 Abs Immat Gran (auto) 0.04 H Absolute Neuts (auto) 3.5 Absolute Nucleated RBC 0.000 Nucleated RBC % (auto) 0.0 Anion Gap 15 16 Estim Creat Clear Calc 47.8 49.2 Estimated GFR > 60 > 60 Random Glucose 107 115 Osmolality Uric Acid Calcium 9.5 9.7 Total Bilirubin Direct Bilirubin AST ALT Alkaline Phosphatase Total Protein Albumin TSH Urine Color Urine Appearance Urine pH Ur Specific [place] Urine Protein Urine Glucose (UA) Urine Ketones Urine Blood Urine Nitrite Ur Leukocyte Esterase Urine Osmolality Ur Random Sodium Urine Opiates Screen Urine Fentanyl Screen Ur Barbiturates Screen Ur Phencyclidine Scrn Ur Amphetamines Screen U Benzodiazepines Scrn Urine Cocaine Screen U Marijuana (THC) Screen 02/12/21 09:21 MCV MCH MCHC RDW Plt Count MPV Immature Gran % (Auto) Neut % (Auto) Lymph % (Auto) [place] % (Auto) Eos % (Auto) Baso % (Auto) Lymph # (Auto) [place] # (Auto) Eos # (Auto) Baso # (Auto) Abs Immat Gran (auto) Absolute Neuts (auto) Absolute Nucleated RBC Nucleated RBC % (auto) Anion Gap 15 Estim Creat Clear Calc 44.6 Estimated GFR > 60 Random Glucose 134 H Osmolality Uric Acid Calcium 9.5 Total Bilirubin Direct Bilirubin AST ALT Alkaline Phosphatase Total Protein Albumin TSH Urine Color Urine Appearance Urine pH Ur Specific [place] Urine Protein Urine Glucose (UA) Urine Ketones Urine Blood Urine Nitrite Ur Leukocyte Esterase Urine Osmolality Ur Random Sodium Urine Opiates Screen Urine Fentanyl Screen Ur Barbiturates Screen Ur Phencyclidine Scrn Ur Amphetamines Screen U Benzodiazepines Scrn Urine Cocaine Screen U Marijuana (THC) Screen Assessment and Plan (1) Hyponatremia: Status: Acute (2) Hypokalemia: Status: Acute (3) Severe anxiety: Status: Acute Assessment and Plan: 80-year-old female who presents to the hospital with? severe anxiety found to have hyponatremia #? hyponatremia ? most likely secondary to hydrochlorothiazide, Lexapro and increased water intake and poor diet Low serum osmolality, Will stop hydrochlorothiazide, wean Lexapro and restrict by mouth fluids Status post urea 30 mg in the ED. Sodium improved from 116-125 therefore placed on IV D5W repeat sodium 123, therefore will DC IV fluid recheck sodium case discussed with Nephrology Rate of correction 126 in 24 hour will follow BMP q.4 hours #? severe anxiety Resolved will lower dose of Lexapro to 5 mg, per jules recent dementia work up has been negative # hypokalemia repleted and resolved # Htn BP stable will DC hydrochlorothiazide and resume losartan if noted to have elevated blood pressure #?history of coronary artery disease status post stent placement continue Plavix and aspirin ?DVT prophylaxis:? Lovenox Quality Stroke Does the patient have a stroke diagnosis?: No VTE Prior VTE?: No VTE Risk Level:: Medical - moderate - high VTE Device Contraindication: Treatment Not Indicated VTE Drug Contraindication: N/A - Med Ordered
--- NOTE | 2021-02-12 12:59 | MHC.CM.PN ---
spoke with pts daughter kathi with whom she lives in the summer pt ususally goes to [place] in the winter ,[facility] hopes she stays with her this winter pt has been vaccinated ,plan is for pt to go home to [facility] when dcd family to transport
[2021-02-12 13:46] LABS: Anion Gap 14 (12-20); Blood Urea Nitrogen 19 mg/dL (9-16); Calcium 9.1 mg/dL (8.4-10.2); Carbon Dioxide 23 mmol/L (22-29); Chloride 88 mmol/L (96-108); Creatinine Clr Calc Pharmacy 49.2; Estimated Glomerular Filt Rate > 60; Glucose Random 154 mg/dL (60-115); Potassium 3.5 mmol/L (3.3-5.1); Sodium 121 mmol/L (135-145)
--- NOTE | 2021-02-12 13:47 | CONS_ITS ---
DATE OF SERVICE: 02/12/2021 REASON FOR CONSULTATION: I was asked to see the patient to assist in evaluation and management of patient's hyponatremia with serum sodium of 116 on admission. HISTORY OF PRESENT ILLNESS: In summary, the patient is a 80-year-old female with a medical history of anxiety, hypertension, coronary artery disease, who presented to the hospital with severe anxiety and feeling overwhelmed. The patient is on hydrochlorothiazide, which apparently she has been on long-standing, but recently was started on Lexapro within the past several weeks. The patient admits to drinking lot of fluids, particularly water, she sips on it all day. She is not aware of any prior history of low serum sodium and her son was at the bedside. He is also not aware of any low serum sodiums in the past. Presently, she is feeling better than when she came into the hospital. PAST MEDICAL HISTORY: Notable for hypertension and there is a mention made of an old myocardial infarction. MEDICATIONS ON ADMISSION: Include aspirin, Plavix, hydrochlorothiazide 25 mg once a day, losartan 100 mg once a day, metoprolol 25 mg once a day, and as mentioned, Lexapro 10 mg once a day. Her current medications are noted in the MAR and hydrochlorothiazide and Lexapro have been placed on hold. SOCIAL HISTORY: The patient is a nonsmoker and nondrinker. No illicit drug use. REVIEW OF SYSTEMS: As noted above. PHYSICAL EXAMINATION: VITAL SIGNS: Blood pressure of 126/78, heart rate in the 100, room air sat 97%. GENERAL: She looks muscle wasted and somewhat cachectic. LUNGS: Breath sounds bilaterally. CARDIAC: Regular rate and rhythm. ABDOMEN: Soft and nontender. Good bowel sounds. No CVA tenderness. EXTREMITIES: Shows no edema. LABORATORY DATA: Sodium was 116 on admission, potassium of 2.9 on admission, BUN 8 and creatinine 0.61. TSH of 1.40. Urine studies showed a specific gravity of less than 1.005, and urine osmolality 213 with urine sodium of 40. Repeat serum sodium was 122 at 10 p.m. last night and then went up as high as 124 at 2 a.m. this morning. She was started on D5W and repeat serum sodium this morning at 9 a.m. is 123. Of note, patient received 1 dose of urea at last night. Hemoglobin 12.4, hematocrit 34.8, white count 6.0. IMPRESSION: Euvolemic hyponatremia in a 80-year-old, on thiazide diuretic and SSRI Lexapro. 1. Euvolemic hyponatremia. The patient's clinical presentation appears to be a mixed picture. She is on 2 medications that can cause inappropriate ADH release and she also has significant p.o. fluid intake by history. Additionally, she appears to be somewhat muscle wasted and cachectic, and I suspect has low solute intake. All these things together can contribute to development of hyponatremia. In fact, her serum sodium started to correct too fast and when she was given 1 dose of urea, which suggests again low solute intake may be playing a significant role. 2. Our goal is to increase the serum sodium by no more than 6-8 mEq per 24 hours. Her starting serum sodium is 116 and repeat this morning is 123, which is a change of 7 mEq. We will continue to track her serum sodiums and use hypotonic fluids as needed to prevent too rapid correction, but also need to avoid her serum sodium dropping again. In order to do this, we will continue her on a p.o. fluid restriction and give IV D5W intermittently as needed. 3. We certainly need to avoid use of thiazide diuretic and also would like to avoid using the SSRI which certainly can be a major contributor to SIADH. 4. Interestingly, her potassium was low on admission and this is likely again pointing to the thiazide diuretic as a culprit for causing the hyponatremia to a significant extent. 5. High-level anxiety. SUGGESTIONS: At this time include, we will repeat the serum sodium and continue to use IV D5W as needed to prevent serum sodium from increasing too fast with goal being 6 to 8 mEq for 24 hours. I stressed to her and her son that she should no longer use a thiazide diuretic and also come off Lexapro. We will follow the patient closely with the team. MD WILL Judge/JUANIS / [phone]
[2021-02-12 15:14] LABS: COVID-19 Test Negative (Negative); IDNOW Serial# 9DD0AD1C
[2021-02-12 19:19] LABS: Anion Gap 13 (12-20); Blood Urea Nitrogen 15 mg/dL (9-16); Calcium 9.6 mg/dL (8.4-10.2); Carbon Dioxide 24 mmol/L (22-29); Chloride 89 mmol/L (96-108); Creatinine Clr Calc Pharmacy 51.4; Estimated Glomerular Filt Rate > 60; Glucose Random 115 mg/dL (60-115); Sodium 122 mmol/L (135-145)
[2021-02-12] MEDS: Enoxaparin Sodium 40 MG/0.4 ML SYRINGE SUBCUT (20:15)
[2021-02-12 22:30] LABS: Blood Urea Nitrogen 14 mg/dL (9-16); Calcium 9.8 mg/dL (8.4-10.2); Creatinine Clr Calc Pharmacy 49.2; Estimated Glomerular Filt Rate > 60; Glucose Random 105 mg/dL (60-115)
[2021-02-12 22:42] LABS: Anion Gap 13 (12-20); Carbon Dioxide 28 mmol/L (22-29); Chloride 88 mmol/L (96-108); Potassium 3.5 mmol/L (3.3-5.1); Sodium 125 mmol/L (135-145)
[2021-02-12] MEDS: Melatonin 3 MG TABLET PO (23:12)
[2021-02-13] VITALS (7 sets, daily range): BP systolic 110–189; BP diastolic 50–97; PULSE 71–97; RESP 18; TEMP 36.5–37.1; O2SAT 92–100; BMI 19.6
[2021-02-13 01:34] LABS: Anion Gap 12 (12-20); Blood Urea Nitrogen 14 mg/dL (9-16); Carbon Dioxide 28 mmol/L (22-29); Chloride 90 mmol/L (96-108); Creatinine Clr Calc Pharmacy 49.9; Estimated Glomerular Filt Rate > 60; Glucose Random 117 mg/dL (60-115); Potassium 3.6 mmol/L (3.3-5.1); Sodium 126 mmol/L (135-145)
[2021-02-13 04:31] LABS: Anion Gap 14 (12-20); Blood Urea Nitrogen 16 mg/dL (9-16); Calcium 9.7 mg/dL (8.4-10.2); Carbon Dioxide 25 mmol/L (22-29); Chloride 90 mmol/L (96-108); Creatinine Clr Calc Pharmacy 44.1; Estimated Glomerular Filt Rate > 60; Glucose Random 106 mg/dL (60-115); Potassium 3.7 mmol/L (3.3-5.1); Sodium 125 mmol/L (135-145)
[2021-02-13 07:11] LABS: Anion Gap 14 (12-20); Blood Urea Nitrogen 14 mg/dL (9-16); Calcium 9.7 mg/dL (8.4-10.2); Carbon Dioxide 25 mmol/L (22-29); Chloride 90 mmol/L (96-108); Creatinine Clr Calc Pharmacy 45.9; Estimated Glomerular Filt Rate > 60; Glucose Random 114 mg/dL (60-115); Potassium 3.9 mmol/L (3.3-5.1); Sodium 125 mmol/L (135-145)
[2021-02-13] MEDS: Ezetimibe 10 MG TABLET PO (09:30)
[2021-02-13] MEDS: Clopidogrel Bisulfate 75 MG TABLET PO (09:30)
[2021-02-13] MEDS: Metoprolol Succinate ER 25 MG TAB.ER.24H PO (09:30)
[2021-02-13] MEDS: Aspirin 81 MG TAB.CHEW PO (09:30)
[2021-02-13] MEDS: Losartan Potassium 50 MG TABLET PO (09:30)
[2021-02-13] MEDS: 0.9 % Sodium Chloride Flush 3 ML SYRINGE IVFLUSH ×3 (09:32→22:36)
[2021-02-13] MEDS: Urea 15 GM POWDER PO ×2 (10:04→17:32)
--- NOTE | 2021-02-13 14:14 | P.PNIM_ITS ---
Subjective Subjective Date of Service: 02/13/21 Interval History: Being followed for hyponatremia, patient appears very anxious, keeps repeating that she lost her best friend because she did not give right information to the [employer] in regard to [place] mobile home that she owns, otherwise denies nausea, no vomiting, no other acute issues overnight. Review of Systems General no headache, no dizziness no fever chills.? CVS no chest pain, no palpitation.? Respiratory no cough, no sob.? Gastrointestinal no nausea no vomiting, no abdominal pain Musculoskeletal no pain no urinary frequency no urgency Review of Systems: Yes all other systems are reviewed and are negative Physical Exam Vital Signs: Vital Signs: Last Vital Signs Temp 98.6 F 02/13/21 11:34 Pulse 86 02/13/21 11:34 Resp 18 02/13/21 11:34 BP 155/77 H 02/13/21 11:34 Pulse Ox 96 02/13/21 11:34 BMI result Body Mass Index 19.6 General awake aler t x3,no acute dist ress.? Neck? suppl e,no JVD. CVS? reg ular rate rhythm, Respiratory lungs clear to auscultat ion, no respirator y distress, no whe juan, no rhonchi. G astrointestinal ab domen soft, nonten kate, bowel sounds audible, no guardi ng , no rigidity. Extremities no lore ma. Neuro nonfocal ,speech clear. Sk in no rash Psych a nxious, keeps repe ating herself. Objective Data Active Medications Acetaminophen (Acetaminophen 325 Mg Tablet) 650 mg PO Q6H PRN PRN Reason: Pain, Mild (Pain Scale 1-3) Last Admin: 02/12/21 06:40 Dose: 650 mg Documented by: TOBI Aspirin (Aspirin 81 Mg Tab.Chew) 81 mg PO DAILY [facility] Last Admin: 02/13/21 09:30 Dose: 81 mg Documented by: HASMUKH Clopidogrel Bisulfate (Clopidogrel Bisulfate 75 Mg Tablet) 75 mg PO DAILY [facility] Last Admin: 02/13/21 09:30 Dose: 75 mg Documented by: HASMUKH Docusate Sodium (Docusate Sodium 100 Mg Capsule) 100 mg PO DAILY PRN PRN Reason: Constipation Ezetimibe (Ezetimibe 10 Mg Tablet) 10 mg PO DAILY [facility] Last Admin: 02/13/21 09:30 Dose: 10 mg Documented by: HASMUKH Enoxaparin Sodium (Enoxaparin Sodium 40 Mg/0.4 Ml Syringe) 40 mg SUBCUT Q24H [facility] Last Admin: 02/12/21 20:15 Dose: 40 mg Documented by: ANTLAQUITA Losartan Potassium (Losartan Potassium 50 Mg Tablet) 50 mg PO DAILY [facility]; Protocol Last Admin: 02/13/21 09:30 Dose: 50 mg Documented by: HASMUKH Melatonin (Melatonin 3 Mg Tablet) 3 mg PO BEDTIME PRN PRN Reason: insomnia Last Admin: 02/12/21 23:12 Dose: 3 mg Documented by: JAMAAL Metoprolol Succinate (Metoprolol Succinate Er 25 Mg Tab.Er.24h) 25 mg PO DAILY [facility]; Protocol Last Admin: 02/13/21 09:30 Dose: 25 mg Documented by: HASMUKH Ondansetron HCl (Ondansetron Hcl 4 Mg/2 Ml Vial) 4 mg IVPUSH Q8H PRN PRN Reason: Nausea and Vomiting Pharmacy Consult (Consult Rx Perform Med Rec) 1 each MISCELLANE ONCE PRN PRN Reason: Consult order Sodium Chloride (0.9 % Sodium Chloride Flush 3 Ml Syringe) 3 ml IVFLUSH QSHIFT [facility] Last Admin: 02/13/21 09:32 Dose: 3 ml Documented by: HASMUKH Timolol Maleate (Timolol Maleate 0.5 % Oph Cathryn 5 Ml Drbtl) 1 drop EYE-RIGHT DAILY [facility] Last Admin: 02/12/21 11:08 Dose: 1 drop Documented by: DAIANA Labs CBC & Chem 7: 02/12/21 06:26 02/13/21 05:56 Labs: Laboratory Results - last 24 hr 02/12/21 02/12/21 02/12/21 14:51 18:48 21:56 Anion Gap 13 13 Estim Creat Clear Calc 51.4 49.2 Estimated GFR > 60 > 60 Random Glucose 115 105 Calcium 9.6 9.8 COVID-19 ([facility]) Negative COVID-19 Clin Com See Note 02/13/21 02/13/21 02/13/21 00:57 03:56 05:56 Anion Gap 12 14 14 Estim Creat Clear Calc 49.9 44.1 45.9 Estimated GFR > 60 > 60 > 60 Random Glucose 117 H 106 114 Calcium 9.0 D 9.7 D 9.7 COVID-19 ([facility]) COVID-19 Clin Com Assessment and Plan (1) Moderate malnutrition: Status: Acute (2) Hypokalemia: Status: Acute (3) Severe anxiety: Status: Acute (4) Hyponatremia: Status: Acute Assessment and Plan: 80-year-old female who presents to the hospital with? severe anxiety found to clements ve hyponatremia #? hyponatremia ? ? 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 ? Serum sodium and from from 116-125 in last 24 hours, Continue fluid restriction, patient being followed by Dr. Mcclain dose of urea given this a.m. Will follow electrolytes q.4 hours and use intermittent D5W if noted to have significant rise in serum sodium #? severe anxiety ? ? This a.m. patient noted to be very anxious keeps repeating herself therefore will obtain psych eval patient was recently placed on Lexapro 5 mg that was recently increased to 10 mg Lexapro discontinued due to hyponatremia will consult psychiatry # moderate protein calorie malnutrition will add supplements #? hypokalemia repleted and resolved # Htn ?? Noted to have elevated blood pressure since hydrochlorothiazide and losartan were held due to low sodium and low blood pressure Will resume losartan 50 mg daily,(home dose 100 mg daily.) #?history of coronary artery disease status post stent placement ?? continue Plavix and aspirin ?DVT prophylaxis:? LoveNotaryAct Quality Stroke Does the patient have a stroke diagnosis?: No VTE Prior VTE?: No VTE Risk Level:: Medical - moderate - high VTE Device Contraindication: Treatment Not Indicated VTE Drug Contraindication: N/A - Med Ordered
--- NOTE | 2021-02-13 15:04 | PM.PNNEP ---
Subjective Subjective Date of Service: 02/13/21 Interval history: Seen and examined, events noted Anxious this am SNa since adm to now reviewed Physical Exam Vital Signs: Vital Signs: Last Vital Signs Temp 98.6 F 02/13/21 11:34 Pulse 86 02/13/21 11:34 Resp 18 02/13/21 11:34 BP 155/77 H 02/13/21 11:34 Pulse Ox 96 02/13/21 11:34 BMI result Body Mass Index 19.6 Const: Other: very anxious General: cooperative and no acute distress Orientation/consciousness: patient oriented x3 Eyes: General: appearance normal, both eyes and all related structures Resp: Effort & Inspection: normal respiratory effort Auscultation: clear to auscultation bilaterally Cardio: Rate: regular rate Rhythm: regular rhythm GI: Palpation (GI): Soft to palpation Auscultation: normal bowel sounds Skin: General skin exam: no rashes or lesions noted Neuro: General: patient oriented x3 Cognition (Neuro): normal cognition Extrem: General: Yes normal to inspection and Yes no pedal edema Objective Data Labs CBC & Chem 7: 02/12/21 06:26 02/13/21 05:56 Labs: Laboratory Results - last 24 hr 02/12/21 02/12/21 02/12/21 14:51 18:48 21:56 Sodium 122 L 125 L Potassium 4.0 3.5 Chloride 89 L 88 L Carbon Dioxide 24 28 Anion Gap 13 13 BUN 15 14 Creatinine 0.66 0.69 Estim Creat Clear Calc 51.4 49.2 Estimated GFR > 60 > 60 Random Glucose 115 105 Calcium 9.6 9.8 COVID-19 (INGA) Negative COVID-19 Clin Com See Note 02/13/21 02/13/21 02/13/21 00:57 03:56 05:56 Sodium 126 L 125 L 125 L Potassium 3.6 3.7 3.9 Chloride 90 L 90 L 90 L Carbon Dioxide 28 25 25 Anion Gap 12 14 14 BUN 14 16 14 Creatinine 0.68 0.77 0.74 Estim Creat Clear Calc 49.9 44.1 45.9 Estimated GFR > 60 > 60 > 60 Random Glucose 117 H 106 114 Calcium 9.0 D 9.7 D 9.7 COVID-19 (INGA) COVID-19 Clin Com Procedures Date of Service Date of Service: 02/13/21 Assessment & Plan Assessment and plan (1) Moderate malnutrition: Status: Acute (2) Hypokalemia: Status: Acute (3) Severe anxiety: Status: Acute (4) Hyponatremia: Status: Acute Assessment and Plan: 1.Euvolemic HypoNA: w/u c/w mixed picture including use of HCTZ along with low solute intake and excess PO fluid and ques of Lexapro causing SIADH AdmSNa 116 and this am 125 which is gradual increase which is our goal of 6-8 meq/24 hrs REC: Urea 15 gm x1 this am and cont po fluid restriction and recheck SNa q6 hrs; avoid use of HCTZ indefinitiely and try to use alt to SSRI Will follow closely with team Time Spent With Patient Time: Total time spent is greater than 50% in coordination of care (as documented) at patient's floor/unit and/or counseling patient: Progress Note: Quality Stroke Does the patient have a stroke diagnosis?: No
[2021-02-13 15:41] LABS: Anion Gap 11 (12-20); Carbon Dioxide 27 mmol/L (22-29); Chloride 92 mmol/L (96-108); Potassium 4.2 mmol/L (3.3-5.1); Sodium 126 mmol/L (135-145)
[2021-02-13 18:03] LABS: Anion Gap 12 (12-20); Carbon Dioxide 27 mmol/L (22-29); Chloride 92 mmol/L (96-108); Sodium 127 mmol/L (135-145)
[2021-02-13 21:23] LABS: Anion Gap 12 (12-20); Blood Urea Nitrogen 43 mg/dL (9-16); Calcium 9.8 mg/dL (8.4-10.2); Carbon Dioxide 28 mmol/L (22-29); Chloride 92 mmol/L (96-108); Creatinine Clr Calc Pharmacy 48.5; Estimated Glomerular Filt Rate > 60; Glucose Random 129 mg/dL (60-115); Potassium 4.1 mmol/L (3.3-5.1); Sodium 128 mmol/L (135-145)
[2021-02-13] MEDS: Docusate Sodium 100 MG CAPSULE PO (21:23)
[2021-02-13] MEDS: Enoxaparin Sodium 40 MG/0.4 ML SYRINGE SUBCUT (21:23)
[2021-02-14 03:20] VITALS: BP 128/65; PULSE 91; RESP 18; TEMP 36.9; O2SAT 96
[2021-02-14 06:48] LABS: Anion Gap 14 (12-20); Blood Urea Nitrogen 24 mg/dL (9-16); Calcium 9.9 mg/dL (8.4-10.2); Carbon Dioxide 25 mmol/L (22-29); Chloride 96 mmol/L (96-108); Creatinine Clr Calc Pharmacy 49.9; Estimated Glomerular Filt Rate > 60; Glucose Random 126 mg/dL (60-115); Sodium 131 mmol/L (135-145)
[2021-02-14 07:44] VITALS: BP 165/80; PULSE 99; RESP 18; TEMP 36.6; O2SAT 95
[2021-02-14] MEDS: 0.9 % Sodium Chloride Flush 3 ML SYRINGE IVFLUSH ×3 (09:32→22:13)
[2021-02-14] MEDS: Metoprolol Succinate ER 25 MG TAB.ER.24H PO (09:32)
[2021-02-14] MEDS: Ezetimibe 10 MG TABLET PO (09:32)
[2021-02-14] MEDS: Aspirin 81 MG TAB.CHEW PO (09:32)
[2021-02-14] MEDS: Clopidogrel Bisulfate 75 MG TABLET PO (09:32)
[2021-02-14] MEDS: timoloL maleate 0.5 % Oph Sol 5 ML DRBTL 1 DROP EYE-RIGHT (09:33)
[2021-02-14] MEDS: Urea 15 GM POWDER PO (10:04)
--- NOTE | 2021-02-14 11:11 | MHC.CLN ---
F/U PT IS MODERATELY MALNOURISHED PT HAS MILD MUSCLE WASTING, A BMI OF 19.6, AND CONSUMED <50% ENERGY INTAKE> 1 MONTH PT STATED HER UBW IS AROUND 112-114 POUNDS PT EXPERIENCED 7.4% WT LOSS X 6 MONTHS (SPECIFIC TIMELINE COULD NOT BE OBTAINED BUT PT'S FAMILY MEMBER BELIEVES AROUND 6 MONTHS) PT STATED HER APPETITE HAS BEEN POOR FOR A MONTH DIET RX: REGULAR WITH 1200 ML/DAY FLUID RESTRICTION-APPROPRIATE PT RECEIVING ENSURE SUPPLEMENT BID TO INCREASE KCALS SUPPLEMENT PROVIDES 700 KCALS, 32 GRAMS PROTEIN, AND 404 ML OF WATER (R/T 1200 ML FLUID RESTRICTION) PO RECORDED 100%X2 MEALS CONTINUE TO MONITOR PO INTAKE AND SUPPLEMENT ACCEPTANCE
[2021-02-14 11:18] VITALS: BP 142/64; PULSE 75; RESP 20; TEMP 36.8; O2SAT 96
--- NOTE | 2021-02-14 11:25 | PM.PNNEP ---
Subjective Subjective Date of Service: 02/14/21 Interval history: Seen and examined, events noted Anxious this am SNa since adm to now reviewed and cont ot grad incr w UREA --131 this am Physical Exam Vital Signs: Vital Signs: Last Vital Signs Temp 98.2 F 02/14/21 11:18 Pulse 75 02/14/21 11:18 Resp 20 02/14/21 11:18 BP 142/64 H 02/14/21 11:18 Pulse Ox 96 02/14/21 11:18 BMI result Body Mass Index 19.6 Const: Other: very anxious General: cooperative and no acute distress Orientation/consciousness: patient oriented x3 Eyes: General: appearance normal, both eyes and all related structures Resp: Effort & Inspection: normal respiratory effort Auscultation: clear to auscultation bilaterally Cardio: Rate: regular rate Rhythm: regular rhythm GI: Palpation (GI): Soft to palpation Auscultation: normal bowel sounds Skin: General skin exam: no rashes or lesions noted Neuro: General: patient oriented x3 Cognition (Neuro): normal cognition Extrem: General: Yes normal to inspection and Yes no pedal edema Objective Data Labs CBC & Chem 7: 02/12/21 06:26 02/14/21 06:18 Labs: Laboratory Results - last 24 hr 02/13/21 02/13/21 02/13/21 15:23 17:48 20:48 Sodium 126 L 127 L 128 L Potassium 4.2 4.0 4.1 Chloride 92 L 92 L 92 L Carbon Dioxide 27 27 28 Anion Gap 11 L 12 12 BUN 43 H D Creatinine 0.70 Estim Creat Clear Calc 48.5 Estimated GFR > 60 Random Glucose 129 H Calcium 9.8 02/14/21 06:18 Sodium 131 L Potassium 4.0 Chloride 96 Carbon Dioxide 25 Anion Gap 14 BUN 24 H Creatinine 0.68 Estim Creat Clear Calc 49.9 Estimated GFR > 60 Random Glucose 126 H Calcium 9.9 Procedures Date of Service Date of Service: 02/14/21 Assessment & Plan Assessment and plan (1) Moderate malnutrition: Status: Acute (2) Hypokalemia: Status: Acute (3) Severe anxiety: Status: Acute (4) Hyponatremia: Status: Acute Assessment and Plan: 1.Euvolemic HypoNA: w/u c/w mixed picture including use of HCTZ along with low solute intake and excess PO fluid and ques of Lexapro causing SIADH Admitting SNa 116 and over past 60 hrs has incr grad to 131 REC: Urea 15 gm x1 this am and cont mod po fluid restriction ( [id number]) and recheck SNa in 12 hrs; may not need additional UREA as HCTZ and SSRI effects have worn off and now avoiding excess PO fluid intake Will follow closely with team Time Spent With Patient Time: Total time spent is greater than 50% in coordination of care (as documented) at patient's floor/unit and/or counseling patient: Progress Note: Quality Stroke Does the patient have a stroke diagnosis?: No
[2021-02-14 13:20] LABS: Sodium 131 mmol/L (135-145)
--- NOTE | 2021-02-14 13:24 | MHC.CM.PN ---
per rounds pt may be dcd over the weekend dc plan retrun to [facility] home
[2021-02-14 15:33] VITALS: BP 137/64; PULSE 87; RESP 17; TEMP 37; O2SAT 97
--- NOTE | 2021-02-14 16:35 | HO.PM.IMPN ---
Subjective Subjective Date of Service: 02/14/21 Interval History: Severe, disabling anxiety and depression per pt and son No SI/HI Review of Systems Review of Systems: Yes all other systems are reviewed and are negative Physical Exam Vital Signs: Vital Signs: Last Vital Signs Temp 98.6 F 02/14/21 15:33 Pulse 87 02/14/21 15:33 Resp 17 02/14/21 15:33 BP 137/64 02/14/21 15:33 Pulse Ox 97 02/14/21 15:33 BMI result Body Mass Index 19.6 Gen: in no acute distress HEENT: sclera anicteric, moist mucus membranes Neck: supple Lungs: clear to auscultation bilaterally Heart: regular rate and rhythm, no murmurs Abd: soft, non-tender, non-distended Ext: no edema Skin: warm/well-perfused Neuro: alert and oriented x3, no focal findings Psych: restricted affect Objective Data Active Medications Acetaminophen (Acetaminophen 325 Mg Tablet) 650 mg PO Q6H PRN PRN Reason: Pain, Mild (Pain Scale 1-3) Last Admin: 02/12/21 06:40 Dose: 650 mg Documented by: TOBI Aspirin (Aspirin 81 Mg Tab.Chew) 81 mg PO DAILY [facility] Last Admin: 02/14/21 09:32 Dose: 81 mg Documented by: KIKA Clopidogrel Bisulfate (Clopidogrel Bisulfate 75 Mg Tablet) 75 mg PO DAILY [facility] Last Admin: 02/14/21 09:32 Dose: 75 mg Documented by: KIKA Docusate Sodium (Docusate Sodium 100 Mg Capsule) 100 mg PO DAILY PRN PRN Reason: Constipation Last Admin: 02/13/21 21:23 Dose: 100 mg Documented by: LEXA Ezetimibe (Ezetimibe 10 Mg Tablet) 10 mg PO DAILY [facility] Last Admin: 02/14/21 09:32 Dose: 10 mg Documented by: KIKA Enoxaparin Sodium (Enoxaparin Sodium 40 Mg/0.4 Ml Syringe) 40 mg SUBCUT Q24H [facility] Last Admin: 02/13/21 21:23 Dose: 40 mg Documented by: LEXA Losartan Potassium (Losartan Potassium 50 Mg Tablet) 100 mg PO DAILY [facility]; Protocol Melatonin (Melatonin 3 Mg Tablet) 3 mg PO BEDTIME PRN PRN Reason: insomnia Last Admin: 02/12/21 23:12 Dose: 3 mg Documented by: JAMAAL Metoprolol Succinate (Metoprolol Succinate Er 25 Mg Tab.Er.24h) 25 mg PO DAILY [facility]; Protocol Last Admin: 02/14/21 09:32 Dose: 25 mg Documented by: KIKA Ondansetron HCl (Ondansetron Hcl 4 Mg/2 Ml Vial) 4 mg IVPUSH Q8H PRN PRN Reason: Nausea and Vomiting Pharmacy Consult (Consult Rx Perform Med Rec) 1 each MISCELLANE ONCE PRN PRN Reason: Consult order Sodium Chloride (0.9 % Sodium Chloride Flush 3 Ml Syringe) 3 ml IVFLUSH QSHIFT [facility] Last Admin: 02/14/21 09:32 Dose: 3 ml Documented by: KIKA Timolol Maleate (Timolol Maleate 0.5 % Oph Cathryn 5 Ml Drbtl) 1 drop EYE-RIGHT DAILY [facility] Last Admin: 02/14/21 09:33 Dose: 1 drop Documented by: KIKA Labs CBC & Chem 7: 02/12/21 06:26 02/14/21 13:01 Labs: Laboratory Results - last 24 hr 02/13/21 02/13/21 02/14/21 17:48 20:48 06:18 Anion Gap 12 12 14 Estim Creat Clear Calc 48.5 49.9 Estimated GFR > 60 > 60 Random Glucose 129 H 126 H Calcium 9.8 9.9 Assessment and Plan (1) Moderate malnutrition: Status: Acute (2) Hypokalemia: Status: Acute (3) Severe anxiety: Status: Acute (4) Hyponatremia: Status: Acute Assessment and Plan: hospital d#4 80yo F with severe anxiety admitted to hyponatremia with Na 116 # hyponatremia - likely due to HCTZ + escitalopram + excess water - urea given yesterday and today as per Nephrology, sodium 116->131 in 48 hr, continue fluid restriction # hypoK - repleted, d/c'ed HCTZ # HTN - continue losartan- increase back to home dose. continue metoprolol. HCTZ d/c'ed as above # CAD s/p PCI - continue DAPT, ezetimibe # severe anxiety + depressionm - psychiatry consultation - d/c'ed escitalopram due to hyponatremia # moderate protein/calorie malnutrtion - dietary supplementation # VTE ppx - LMWH Quality Stroke Does the patient have a stroke diagnosis?: No VTE Prior VTE?: No VTE Risk Level:: Medical - moderate - high VTE Device Contraindication: Treatment Not Indicated VTE Drug Contraindication: N/A - Med Ordered
[2021-02-14 19:04] LABS: Sodium 134 mmol/L (135-145)
--- NOTE | 2021-02-14 19:08 | PM.PSYCN ---
History of Present Illness Date of Service: 02/14/21 Chief Complaint: hyponatremia Reason for Consult: medication Requesting physician: Sammi Brink Discussed with referring provider: Yes Sources of Information: patient interviewed, chart reviewed and crisis/core team assessment reviewed HPI Narrative: Pt is a 80yo female who carries a dx of SHAHIDA, HTN, CAD who presented to [facility] 02/11/21 complaining of anxiety. She was admitted to [facility] due to hyponatremia with Na 116, presented with altered mental status. Per hospitalist note, hyponatremia deemed likely due to HCTZ, escitalopram, and excess water; thus HCTZ and escitalopram were discontinued.? Urology was consulted, given one dose of urea. Na has been steadily improving over course of hospitalization, now 131. Per chart, had a recent workup on 01/10/21 at her PCPs office for dementia but her dementia questionnaire did not show any significant dementia, and sx were attributed to anxiety depression and pt was started on Lexapro, which was titrated up to 10 mg on 02/04/21. Pt reported she had been drinking a significant amount of water, states she did this because her daughter was concerned that she was not eating or drinking enough. Past Psychiatric History: Denies hx of IPLOC or crisis evals. No hx of past psych meds other than recent prescription for lexapro by PCP. Medical Evaluation Reviewed: Yes [facility] Medical History HTN (hypertension) Myocardial infarct, old Surgical History H/O heart artery stent Diagnostics Vital Signs (24Hr): Vital Signs - 24 hr 02/13/21 20:00 02/13/21 23:32 02/14/21 03:20 Temperature 98.6 F 98.3 F 98.4 F Pulse Rate 82 97 91 Respiratory Rate 18 18 18 Blood Pressure 141/58 H 120/71 128/65 Pulse Oximetry 92 97 96 02/14/21 07:44 02/14/21 11:18 02/14/21 15:33 Temperature 97.8 F 98.2 F 98.6 F Pulse Rate 99 75 87 Respiratory Rate 18 20 17 Blood Pressure 165/80 H 142/64 H 137/64 Pulse Oximetry 95 96 97 BMI result Body Mass Index 19.6 Labs Results: 02/12/21 06:26 02/16/21 06:36 Labs: Laboratory Results - last 48 hr 02/12/21 02/12/21 02/13/21 18:48 21:56 00:57 Sodium 122 L 125 L 126 L Potassium 4.0 3.5 3.6 Chloride 89 L 88 L 90 L Carbon Dioxide 24 28 28 Anion Gap 13 13 12 BUN 15 14 14 Creatinine 0.66 0.69 0.68 Estim Creat Clear Calc 51.4 49.2 49.9 Estimated GFR > 60 > 60 > 60 Random Glucose 115 105 117 H Calcium 9.6 9.8 9.0 D 02/13/21 02/13/21 02/13/21 03:56 05:56 15:23 Sodium 125 L 125 L 126 L Potassium 3.7 3.9 4.2 Chloride 90 L 90 L 92 L Carbon Dioxide 25 25 27 Anion Gap 14 14 11 L BUN 16 14 Creatinine 0.77 0.74 Estim Creat Clear Calc 44.1 45.9 Estimated GFR > 60 > 60 Random Glucose 106 114 Calcium 9.7 D 9.7 02/13/21 02/13/21 02/14/21 17:48 20:48 06:18 Sodium 127 L 128 L 131 L Potassium 4.0 4.1 4.0 Chloride 92 L 92 L 96 Carbon Dioxide 27 28 25 Anion Gap 12 12 14 BUN 43 H D 24 H Creatinine 0.70 0.68 Estim Creat Clear Calc 48.5 49.9 Estimated GFR > 60 > 60 Random Glucose 129 H 126 H Calcium 9.8 9.9 02/14/21 02/14/21 13:01 18:49 Sodium 131 L 134 L Potassium Chloride Carbon Dioxide Anion Gap BUN Creatinine Estim Creat Clear Calc Estimated GFR Random Glucose Calcium Mental Status Exam Mental Status Exam Narrative: A&O except to situation. Pt lying down in hospital attire, thin, short hair, eyeliner. Good eye contact, attentive. No Tics or Tremors. No abnormal involuntary movements. Agitated, cooperative, but difficult to engage in meaningful conversation. Pressured speech, spontaneous with increased regular rate and rhythm, difficult to interrupt, normal volume and prosody. No prolonged speech latency or dysarthria. Mood is ?anxious,? affect is anxious. Denies SI/SIB/HI upon inquiry. Denies A/VH or delusional thought content. Thoughts are perseverative, ruminative, obsessional. No known cognitive or memory impairment. Insight/ Judgment limited but adequate. Medications Medications Current Medications Acetaminophen (Acetaminophen 325 Mg Tablet) 650 mg PO Q6H PRN PRN Reason: Pain, Mild (Pain Scale 1-3) Last Admin: 02/12/21 06:40 Dose: 650 mg Documented by: Aspirin (Aspirin 81 Mg Tab.Chew) 81 mg PO DAILY [facility] Last Admin: 02/14/21 09:32 Dose: 81 mg Documented by: Clopidogrel Bisulfate (Clopidogrel Bisulfate 75 Mg Tablet) 75 mg PO DAILY [facility] Last Admin: 02/14/21 09:32 Dose: 75 mg Documented by: Docusate Sodium (Docusate Sodium 100 Mg Capsule) 100 mg PO DAILY PRN PRN Reason: Constipation Last Admin: 02/13/21 21:23 Dose: 100 mg Documented by: Ezetimibe (Ezetimibe 10 Mg Tablet) 10 mg PO DAILY [facility] Last Admin: 02/14/21 09:32 Dose: 10 mg Documented by: Enoxaparin Sodium (Enoxaparin Sodium 40 Mg/0.4 Ml Syringe) 40 mg SUBCUT Q24H [facility] Last Admin: 02/13/21 21:23 Dose: 40 mg Documented by: Losartan Potassium (Losartan Potassium 50 Mg Tablet) 100 mg PO DAILY [facility]; Protocol Melatonin (Melatonin 3 Mg Tablet) 3 mg PO BEDTIME PRN PRN Reason: insomnia Last Admin: 02/12/21 23:12 Dose: 3 mg Documented by: Metoprolol Succinate (Metoprolol Succinate Er 25 Mg Tab.Er.24h) 25 mg PO DAILY [facility]; Protocol Last Admin: 02/14/21 09:32 Dose: 25 mg Documented by: Ondansetron HCl (Ondansetron Hcl 4 Mg/2 Ml Vial) 4 mg IVPUSH Q8H PRN PRN Reason: Nausea and Vomiting Pharmacy Consult (Consult Rx Perform Med Rec) 1 each MISCELLANE ONCE PRN PRN Reason: Consult order Sodium Chloride (0.9 % Sodium Chloride Flush 3 Ml Syringe) 3 ml IVFLUSH QSHIFT [facility] Last Admin: 02/14/21 18:12 Dose: 3 ml Documented by: Timolol Maleate (Timolol Maleate 0.5 % Oph Cathryn 5 Ml Drbtl) 1 drop EYE-RIGHT DAILY [facility] Last Admin: 02/14/21 09:33 Dose: 1 drop Documented by: Allergies Allergies Allergy/AdvReac Type Severity Reaction Status Date / Time melons Allergy Unknown throat Uncoded 08/13/11 00:00 sweling Assessment & Plan Assessment & Plan (1) SHAHIDA (generalized anxiety disorder): Status: Acute Code(s): F41.1 - Generalized anxiety disorder (2) Moderate malnutrition: Status: Acute Code(s): E44.0 - Moderate protein-calorie malnutrition (3) Altered mental status: Status: Acute Code(s): R41.82 - Altered mental status, unspecified Assessment and Plan: Pt is a 80yo female who carries a dx of SHAHIDA, HTN, CAD who presented to [facility] 02/11/21 complaining of anxiety. She was admitted to [facility] due to hyponatremia, which has been resolving. Pt was recently started on lexapro by PCP for anxiety, however reported adverse effect of increased anxiety and may have contributed to hyponatremia/ SIADH, altered mental status. Per family, at baseline pt is anxious, however her thoughts are severely perseverative, which is not baseline. Pt continues to appear with altered mental status and distress. Plan: will start olanzapine 2.5 mg BID for anxious agitation, will re-eval tomorrow. -Continue monitoring medically. Patient is currently not medically cleared. -Consult requested for med management I have shared this with Dr. Sammi Brink. Thank you for this consultation. If you have any questions or concerns, please do not hesitate to contact psychiatry service. ? I spent minutes with the patient and/or on the patient floor today, greater than?50% of which was spent counseling/coordinating care.
[2021-02-14 19:44] VITALS: BP 121/68; PULSE 85; RESP 18; TEMP 36.9; O2SAT 98
[2021-02-14] MEDS: Enoxaparin Sodium 40 MG/0.4 ML SYRINGE SUBCUT (22:13)
[2021-02-14] MEDS: OLANZapine 2.5 MG TABLET PO (22:13)
[2021-02-14 23:49] VITALS: BP 146/59; PULSE 74; RESP 18; TEMP 36.8; O2SAT 99
[2021-02-15] VITALS (7 sets, daily range): BP systolic 103–139; BP diastolic 49–70; PULSE 73–103; RESP 15–20; TEMP 36.6–37.1; O2SAT 95–97
[2021-02-15 07:57] LABS: Anion Gap 11 (12-20); Blood Urea Nitrogen 30 mg/dL (9-16); Calcium 9.4 mg/dL (8.4-10.2); Carbon Dioxide 28 mmol/L (22-29); Chloride 97 mmol/L (96-108); Creatinine Clr Calc Pharmacy 40.4; Estimated Glomerular Filt Rate > 60; Glucose Random 82 mg/dL (60-115); Sodium 132 mmol/L (135-145)
[2021-02-15 09:06] LABS: Cortisol Random 17.5 ug/dL
[2021-02-15] MEDS: Losartan Potassium 50 MG TABLET 100 MG PO (09:29)
[2021-02-15] MEDS: OLANZapine 2.5 MG TABLET PO ×2 (09:29→21:00)
[2021-02-15] MEDS: Metoprolol Succinate ER 25 MG TAB.ER.24H PO (09:29)
[2021-02-15] MEDS: Ezetimibe 10 MG TABLET PO (09:29)
[2021-02-15] MEDS: 0.9 % Sodium Chloride Flush 3 ML SYRINGE IVFLUSH ×2 (09:30→21:00)
[2021-02-15] MEDS: Clopidogrel Bisulfate 75 MG TABLET PO (09:30)
[2021-02-15] MEDS: Aspirin 81 MG TAB.CHEW PO (09:30)
--- NOTE | 2021-02-15 09:48 | PM.PNNEP ---
Subjective Subjective Date of Service: 02/15/21 Interval history: seen and examined no complaints discussed with medical attending Physical Exam Vital Signs: Vital Signs: Last Vital Signs Temp 98.2 F 02/15/21 08:00 Pulse 73 02/15/21 09:29 Resp 20 02/15/21 08:00 BP 120/52 L 02/15/21 09:29 Pulse Ox 95 02/15/21 08:00 BMI result Body Mass Index 19.6 Const: General: alert and awake HENMT: Head: Yes normocephalic and Yes atraumatic Neck: Neck: Yes supple Resp: Effort & Inspection: decreased respiratory effort Cardio: Heart sounds: S1 normal heart sound present and S2 normal heart sound present GI: Palpation (GI): Soft to palpation and nontender Extrem: Right upper extremity: No no edema Objective Data Labs CBC & Chem 7: 02/12/21 06:26 02/15/21 06:40 Labs: Laboratory Results - last 24 hr 02/14/21 02/14/21 02/15/21 13:01 18:49 06:40 Sodium 131 L 134 L 132 L Potassium 4.0 Chloride 97 Carbon Dioxide 28 Anion Gap 11 L BUN 30 H Creatinine 0.84 Estim Creat Clear Calc 40.4 Estimated GFR > 60 Random Glucose 82 Calcium 9.4 Random Cortisol 02/15/21 06:40 Sodium Potassium Chloride Carbon Dioxide Anion Gap BUN Creatinine Estim Creat Clear Calc Estimated GFR Random Glucose Calcium Random Cortisol 17.5 Procedures Date of Service Date of Service: 02/15/21 Assessment & Plan Assessment and plan (1) Hyponatremia: Status: Acute Assessment and Plan: euvolemic hyponatremia multifactorial: -HCTZ along -low solute intake -excess PO fluid -Lexapro causing SIADH REC fluid restriction no need for more urea follow electrolytes Time Spent With Patient Time: Total time spent is greater than 50% in coordination of care (as documented) at patient's floor/unit and/or counseling patient: Progress Note: Quality Stroke Does the patient have a stroke diagnosis?: No
--- NOTE | 2021-02-15 12:26 | HO.PM.IMPN ---
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 Review of Systems Review of Systems: Yes all other systems are reviewed and are negative Physical Exam Vital Signs: Vital Signs: Last Vital Signs Temp 98.0 F 02/15/21 11:53 Pulse 87 02/15/21 11:53 Resp 20 02/15/21 11:53 BP 129/66 02/15/21 11:53 Pulse Ox 95 02/15/21 11:53 BMI result Body Mass Index 19.6 Gen: extremely anxious HEENT: sclera anicteric, moist mucus membranes Neck: supple Lungs: clear to auscultation bilaterally Heart: regular rate and rhythm, no murmurs Abd: soft, non-tender, non-distended Ext: no edema Skin: warm/well-perfused Neuro: alert and oriented x3, no focal findings Psych: anxious Objective Data Active Medications Acetaminophen (Acetaminophen 325 Mg Tablet) 650 mg PO Q6H PRN PRN Reason: Pain, Mild (Pain Scale 1-3) Last Admin: 02/12/21 06:40 Dose: 650 mg Documented by: TOBI Aspirin (Aspirin 81 Mg Tab.Chew) 81 mg PO DAILY [facility] Last Admin: 02/15/21 09:30 Dose: 81 mg Documented by: ONI Clopidogrel Bisulfate (Clopidogrel Bisulfate 75 Mg Tablet) 75 mg PO DAILY [facility] Last Admin: 02/15/21 09:30 Dose: 75 mg Documented by: ONI Docusate Sodium (Docusate Sodium 100 Mg Capsule) 100 mg PO DAILY PRN PRN Reason: Constipation Last Admin: 02/13/21 21:23 Dose: 100 mg Documented by: LEXA Ezetimibe (Ezetimibe 10 Mg Tablet) 10 mg PO DAILY [facility] Last Admin: 02/15/21 09:29 Dose: 10 mg Documented by: ONI Enoxaparin Sodium (Enoxaparin Sodium 40 Mg/0.4 Ml Syringe) 40 mg SUBCUT Q24H [facility] Last Admin: 02/14/21 22:13 Dose: 40 mg Documented by: PONCE Losartan Potassium (Losartan Potassium 50 Mg Tablet) 100 mg PO DAILY [facility]; Protocol Last Admin: 02/15/21 09:29 Dose: 100 mg Documented by: ONI Melatonin (Melatonin 3 Mg Tablet) 3 mg PO BEDTIME PRN PRN Reason: insomnia Last Admin: 02/12/21 23:12 Dose: 3 mg Documented by: JAMAAL Metoprolol Succinate (Metoprolol Succinate Er 25 Mg Tab.Er.24h) 25 mg PO DAILY [facility]; Protocol Last Admin: 02/15/21 09:29 Dose: 25 mg Documented by: ONI Olanzapine (Olanzapine 2.5 Mg Tablet) 2.5 mg PO BID [facility] Last Admin: 02/15/21 09:29 Dose: 2.5 mg Documented by: ONI Olanzapine (Olanzapine 2.5 Mg Tablet) 2.5 mg PO Q6H PRN PRN Reason: agitation, anxiety Ondansetron HCl (Ondansetron Hcl 4 Mg/2 Ml Vial) 4 mg IVPUSH Q8H PRN PRN Reason: Nausea and Vomiting Pharmacy Consult (Consult Rx Perform Med Rec) 1 each MISCELLANE ONCE PRN PRN Reason: Consult order Sodium Chloride (0.9 % Sodium Chloride Flush 3 Ml Syringe) 3 ml IVFLUSH QSHIFT [facility] Last Admin: 02/15/21 09:30 Dose: 3 ml Documented by: ONI Timolol Maleate (Timolol Maleate 0.5 % Oph Cathryn 5 Ml Drbtl) 1 drop EYE-RIGHT DAILY [facility] Last Admin: 02/15/21 09:37 Dose: Not Given Documented by: ONI Non-Admin Reason: Med Not Available Labs CBC & Chem 7: 02/12/21 06:26 02/15/21 06:40 Labs: Laboratory Results - last 24 hr 02/15/21 02/15/21 06:40 06:40 Anion Gap 11 L Estim Creat Clear Calc 40.4 Estimated GFR > 60 Random Glucose 82 Calcium 9.4 Random Cortisol 17.5 Assessment and Plan (1) Moderate malnutrition: Status: Acute (2) Hypokalemia: Status: Acute (3) Severe anxiety: Status: Acute (4) Hyponatremia: Status: Acute Assessment and Plan: hospital d#5 80yo F with severe anxiety admitted to hyponatremia with Na 116 # hyponatremia - likely due to HCTZ + escitalopram + excess water - Nephro following, 2 doses of urea given and fluid restricted, sodium now 132 # hypoK - repleted, d/c'ed HCTZ # HTN - continue losartan- increased back to home dose. continue metoprolol. HCTZ d/c'ed as above # CAD s/p PCI - continue DAPT, ezetimibe # severe anxiety + depressionm - d/c'ed escitalopram due to hyponatremia - psychiatry consultation: started olanzapine standing + prn. HCP will be invoked and pt will be transferred to inpatient psychiatry # moderate protein/calorie malnutrtion - dietary supplementation # VTE ppx - LMWH # dispo - awaiting inpt psychiatry bed Quality Stroke Does the patient have a stroke diagnosis?: No VTE Prior VTE?: No VTE Risk Level:: Medical - moderate - high VTE Device Contraindication: Treatment Not Indicated VTE Drug Contraindication: N/A - Med Ordered
--- NOTE | 2021-02-15 15:07 | PM.PSYCN ---
History of Present Illness Date of Service: 02/15/21 Chief Complaint: hyponatremia Reason for Consult: Disposition Requesting physician: Sammi Brink Discussed with referring provider: Yes HPI Narrative: See previous consult note for details: Pt is a 80yo female who carries a dx of SHAHIDA, HTN, CAD who presented to [facility] [place]/[facility]21 complaining of anxiety. She was admitted to [facility] due to hyponatremia with Na 116, presented with altered mental status. Per hospitalist note, hyponatremia deemed likely due to HCTZ, escitalopram, and excess water; thus HCTZ and escitalopram were discontinued.? Urology was consulted, given one dose of urea. Na has been steadily improving over course of hospitalization, now 131. Per chart, had a recent workup on 01/10/21 at her PCPs office for dementia but her dementia questionnaire did not show any significant dementia, and sx were attributed to anxiety depression and pt was started on Lexapro, which was titrated up to 10 mg on 02/04/21. Pt reported she had been drinking a significant amount of water, states she did this because her daughter was concerned that she was not eating or drinking enough. Psych consult was requested, as pt has presented as very anxious throughout the course of hospitalization with perseverative thought process.? I re-evaluated the pt today with her daughter in law, Angelica, present. Pt is presenting unchanged, has had two doses of olanzapine 2.5 mg last night and this morning. 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 Discussed that she may benefit from further inpatient level of care to address her sx of anxiety and pt became tearful, distressed, states ?Im gonna live here,? pulled blanket over her face, repeats ?I did all this. This is wrong.? At this time, pt does not meet capacity for medical decision making, as she continues to demonstrate impaired judgment and insight and is unable to discuss her current medical condition, make a medical decision, or appreciate risks/ benefits of treatment, as she is fixated on event from the past and difficult to redirect. Past Psychiatric History: Denies hx of IPLOC or crisis evals. No hx of past psych meds other than recent prescription for lexapro by PCP. [facility] Medical History HTN (hypertension) Myocardial infarct, old Surgical History H/O heart artery stent Diagnostics Vital Signs (24Hr): Vital Signs - 24 hr 02/14/21 15:33 02/14/21 19:44 02/14/21 23:49 Temperature 98.6 F 98.5 F 98.3 F Pulse Rate 87 85 74 Respiratory Rate 17 18 18 Blood Pressure 137/64 121/68 146/59 H Pulse Oximetry 97 98 99 02/15/21 03:52 02/15/21 08:00 02/15/21 09:29 Temperature 98.6 F 98.2 F Pulse Rate 76 73 73 Respiratory Rate 20 20 Blood Pressure 103/49 L 120/52 L 120/52 L Pulse Oximetry 96 95 02/15/21 11:53 Temperature 98.0 F Pulse Rate 87 Respiratory Rate 20 Blood Pressure 129/66 Pulse Oximetry 95 BMI result Body Mass Index 19.6 Labs Results: 02/12/21 06:26 02/16/21 06:36 Labs: Laboratory Results - last 48 hr 02/13/21 02/13/21 02/13/21 15:23 17:48 20:48 Sodium 126 L 127 L 128 L Potassium 4.2 4.0 4.1 Chloride 92 L 92 L 92 L Carbon Dioxide 27 27 28 Anion Gap 11 L 12 12 BUN 43 H D Creatinine 0.70 Estim Creat Clear Calc 48.5 Estimated GFR > 60 Random Glucose 129 H Calcium 9.8 TSH Random Cortisol 02/14/21 02/14/21 02/14/21 06:18 13:01 18:49 Sodium 131 L 131 L 134 L Potassium 4.0 Chloride 96 Carbon Dioxide 25 Anion Gap 14 BUN 24 H Creatinine 0.68 Estim Creat Clear Calc 49.9 Estimated GFR > 60 Random Glucose 126 H Calcium 9.9 TSH Random Cortisol 02/15/21 02/15/21 06:40 06:40 Sodium 132 L Potassium 4.0 Chloride 97 Carbon Dioxide 28 Anion Gap 11 L BUN 30 H Creatinine 0.84 Estim Creat Clear Calc 40.4 Estimated GFR > 60 Random Glucose 82 Calcium 9.4 TSH 0.90 Random Cortisol 17.5 Mental Status Exam Mental Status Exam Narrative: A&O except to situation. Pt lying down in hospital attire, thin, short hair, eyeliner. Good eye contact, attentive. No Tics or Tremors. No abnormal involuntary movements. Agitated, cooperative, but difficult to engage in meaningful conversation. Pressured speech, spontaneous with increased regular rate and rhythm, difficult to interrupt, normal volume and prosody. No prolonged speech latency or dysarthria. Mood is ?anxious,? affect is anxious. Denies SI/SIB/HI upon inquiry. Denies A/VH or delusional thought content. Thoughts are perseverative, ruminative, obsessional. No known cognitive or memory impairment. Insight/ Judgment limited but adequate. Medications Medications Current Medications Acetaminophen (Acetaminophen 325 Mg Tablet) 650 mg PO Q6H PRN PRN Reason: Pain, Mild (Pain Scale 1-3) Last Admin: 02/12/21 06:40 Dose: 650 mg Documented by: Aspirin (Aspirin 81 Mg Tab.Chew) 81 mg PO DAILY [facility] Last Admin: 02/15/21 09:30 Dose: 81 mg Documented by: Clopidogrel Bisulfate (Clopidogrel Bisulfate 75 Mg Tablet) 75 mg PO DAILY [facility] Last Admin: 02/15/21 09:30 Dose: 75 mg Documented by: Docusate Sodium (Docusate Sodium 100 Mg Capsule) 100 mg PO DAILY PRN PRN Reason: Constipation Last Admin: 02/13/21 21:23 Dose: 100 mg Documented by: Ezetimibe (Ezetimibe 10 Mg Tablet) 10 mg PO DAILY [facility] Last Admin: 02/15/21 09:29 Dose: 10 mg Documented by: Enoxaparin Sodium (Enoxaparin Sodium 40 Mg/0.4 Ml Syringe) 40 mg SUBCUT Q24H [facility] Last Admin: 02/14/21 22:13 Dose: 40 mg Documented by: Losartan Potassium (Losartan Potassium 50 Mg Tablet) 100 mg PO DAILY [facility]; Protocol Last Admin: 02/15/21 09:29 Dose: 100 mg Documented by: Melatonin (Melatonin 3 Mg Tablet) 3 mg PO BEDTIME PRN PRN Reason: insomnia Last Admin: 02/12/21 23:12 Dose: 3 mg Documented by: Metoprolol Succinate (Metoprolol Succinate Er 25 Mg Tab.Er.24h) 25 mg PO DAILY [facility]; Protocol Last Admin: 02/15/21 09:29 Dose: 25 mg Documented by: Olanzapine (Olanzapine 2.5 Mg Tablet) 2.5 mg PO BID [facility] Last Admin: 02/15/21 09:29 Dose: 2.5 mg Documented by: Olanzapine (Olanzapine 2.5 Mg Tablet) 2.5 mg PO Q6H PRN PRN Reason: agitation, anxiety Ondansetron HCl (Ondansetron Hcl 4 Mg/2 Ml Vial) 4 mg IVPUSH Q8H PRN PRN Reason: Nausea and Vomiting Pharmacy Consult (Consult Rx Perform Med Rec) 1 each MISCELLANE ONCE PRN PRN Reason: Consult order Sodium Chloride (0.9 % Sodium Chloride Flush 3 Ml Syringe) 3 ml IVFLUSH QSHIFT [facility] Last Admin: 02/15/21 09:30 Dose: 3 ml Documented by: Timolol Maleate (Timolol Maleate 0.5 % Oph Cathryn 5 Ml Drbtl) 1 drop EYE-RIGHT DAILY [facility] Last Admin: 02/15/21 09:37 Dose: Not Given Documented by: Allergies Allergies Allergy/AdvReac Type Severity Reaction Status Date / Time melons Allergy Unknown throat Uncoded 08/13/11 00:00 sweling Assessment & Plan Assessment & Plan (1) SHAHIDA (generalized anxiety disorder): Status: Acute Code(s): F41.1 - Generalized anxiety disorder (2) Altered mental status: Status: Acute Code(s): R41.82 - Altered mental status, unspecified Assessment and Plan: Pt is a 80yo female who carries a dx of SHAHIDA, HTN, CAD who presented to [facility] 02/11/21 complaining of anxiety. She was admitted to [facility] due to hyponatremia, which has been resolving. Pt was recently started on lexapro by PCP for anxiety, however reported adverse effect of increased anxiety and may have contributed to hyponatremia/ SIADH, altered mental status. Per family, at baseline pt is anxious, however her thoughts are severely perseverative, which is not baseline. Pt continues to appear with altered mental status and distress. Plan: Continue olanzapine 2.5 mg BID for anxious agitation. Will add olanzapine 2.5 mg Q6H PRN for breakthrough agitation, anxiety. -Continue monitoring medically. Patient is currently not medically cleared. -Patient cannot leave AGAINST MEDICAL ADVICE. She does not have capacity for medical decision making at this time. It is recommended to invoke HCP. -I discussed with Care Team for evaluation upon medical clearance, as pt would benefit from further IPLOC for anxious distress, agitation. initial treatments ordered collateral history needed ? I have shared this with Dr. Sammi Brink. Thank you for this consultation. If you have any questions or concerns, please do not hesitate to contact psychiatry service. I spent minutes with the patient and/or on the patient floor today, greater than?50% of which was spent counseling/coordinating care.
--- NOTE | 2021-02-15 16:15 | MHC.CARE ---
CARE Team met with patient in room 462-1 for evaluation, she continued to ruminate on the same topic, only redirectable for brief moments. Recommendation is for inpatient psychiatric admission, [facility] unable to accommodate her on S1 until Wednesday or Wednesday, will follow up with daughter Abi tomorrow for additional collateral/historical information. Providers updated
[2021-02-15] MEDS: Enoxaparin Sodium 40 MG/0.4 ML SYRINGE SUBCUT (20:59)
[2021-02-16] VITALS (7 sets, daily range): BP systolic 144–160; BP diastolic 66–82; PULSE 86–95; RESP 18–20; TEMP 36.7–37.1; O2SAT 94–98
[2021-02-16 07:31] LABS: Anion Gap 12 (12-20); Blood Urea Nitrogen 17 mg/dL (9-16); Calcium 9.7 mg/dL (8.4-10.2); Carbon Dioxide 27 mmol/L (22-29); Chloride 102 mmol/L (96-108); Creatinine Clr Calc Pharmacy 49.9; Estimated Glomerular Filt Rate > 60; Glucose Random 109 mg/dL (60-115); Potassium 3.9 mmol/L (3.3-5.1); Sodium 137 mmol/L (135-145)
--- NOTE | 2021-02-16 09:45 | PM.PNNEP ---
Subjective Subjective Date of Service: 02/16/21 Interval history: seen and examined discussed with medical attending no complaints Physical Exam Vital Signs: Vital Signs: Last Vital Signs Temp 98.8 F 02/16/21 07:16 Pulse 92 02/16/21 07:16 Resp 18 02/16/21 07:16 BP 144/66 H 02/16/21 07:16 Pulse Ox 96 02/16/21 07:16 BMI result Body Mass Index 19.6 Const: General: alert and awake HENMT: Head: Yes normocephalic and Yes atraumatic Neck: Neck: Yes supple Resp: Effort & Inspection: decreased respiratory effort Cardio: Heart sounds: S1 normal heart sound present and S2 normal heart sound present GI: Palpation (GI): Soft to palpation and nontender Objective Data Labs CBC & Chem 7: 02/12/21 06:26 02/16/21 06:36 Labs: Laboratory Results - last 24 hr 02/15/21 02/16/21 06:40 06:36 Sodium 137 Potassium 3.9 Chloride 102 Carbon Dioxide 27 Anion Gap 12 BUN 17 H Creatinine 0.68 Estim Creat Clear Calc 49.9 Estimated GFR > 60 Random Glucose 109 Calcium 9.7 TSH 0.90 Procedures Date of Service Date of Service: 02/16/21 Assessment & Plan Assessment and plan (1) Hyponatremia: Status: Acute Assessment and Plan: Sna normalized euvolemic hyponatremia multifactorial: -HCTZ -low solute intake -excess PO fluid -Lexapro causing SIADH REC can lift fluid restriction follow electrolytes Time Spent With Patient Time: Total time spent is greater than 50% in coordination of care (as documented) at patient's floor/unit and/or counseling patient: Progress Note: Quality Stroke Does the patient have a stroke diagnosis?: No
[2021-02-16] MEDS: Ezetimibe 10 MG TABLET PO (09:59)
[2021-02-16] MEDS: 0.9 % Sodium Chloride Flush 3 ML SYRINGE IVFLUSH (10:00)
[2021-02-16] MEDS: Aspirin 81 MG TAB.CHEW PO (10:00)
[2021-02-16] MEDS: Clopidogrel Bisulfate 75 MG TABLET PO (10:00)
[2021-02-16] MEDS: Metoprolol Succinate ER 25 MG TAB.ER.24H PO (10:01)
[2021-02-16] MEDS: Losartan Potassium 50 MG TABLET 100 MG PO (10:02)
[2021-02-16] MEDS: OLANZapine 2.5 MG TABLET PO ×2 (10:03→20:20)
[2021-02-16] MEDS: timoloL maleate 0.5 % Oph Sol 5 ML DRBTL 1 DROP EYE-RIGHT (10:05)
--- NOTE | 2021-02-16 10:39 | MHC.CM.PN ---
Per MD, Patient's dc plan is now M1 (IP Psych) and a bed on that unit is pending. CM will follow.
--- NOTE | 2021-02-16 13:16 | P.PNIM_ITS ---
Subjective Subjective Date of Service: 02/16/21 Interval History: Extremely anxious/ruminative and I cannot redirect her. Review of Systems Review of Systems: Yes all other systems are reviewed and are negative Physical Exam Vital Signs: Vital Signs: Last Vital Signs Temp 98.2 F 02/16/21 10:59 Pulse 86 02/16/21 10:59 Resp 20 02/16/21 10:59 BP 156/69 H 02/16/21 10:59 Pulse Ox 98 02/16/21 10:59 BMI result Body Mass Index 19.6 Gen: extremely anxious HEENT: sclera anicteric, moist mucus membranes Neck: supple Lungs: clear to auscultation bilaterally Heart: regular rate and rhythm, no murmurs Abd: soft, non-tender, non-distended Ext: no edema Skin: warm/well-perfused Neuro: alert and oriented x3, no focal findings Psych: anxious Objective Data Active Medications Acetaminophen (Acetaminophen 325 Mg Tablet) 650 mg PO Q6H PRN PRN Reason: Pain, Mild (Pain Scale 1-3) Last Admin: 02/12/21 06:40 Dose: 650 mg Documented by: TBOI Aspirin (Aspirin 81 Mg Tab.Chew) 81 mg PO DAILY [facility] Last Admin: 02/16/21 10:00 Dose: 81 mg Documented by: DAISY Clopidogrel Bisulfate (Clopidogrel Bisulfate 75 Mg Tablet) 75 mg PO DAILY [facility] Last Admin: 02/16/21 10:00 Dose: 75 mg Documented by: DAISY Docusate Sodium (Docusate Sodium 100 Mg Capsule) 100 mg PO DAILY PRN PRN Reason: Constipation Last Admin: 02/13/21 21:23 Dose: 100 mg Documented by: LEXA Ezetimibe (Ezetimibe 10 Mg Tablet) 10 mg PO DAILY [facility] Last Admin: 02/16/21 09:59 Dose: 10 mg Documented by: DAISY Enoxaparin Sodium (Enoxaparin Sodium 40 Mg/0.4 Ml Syringe) 40 mg SUBCUT Q24H [facility] Last Admin: 02/15/21 20:59 Dose: 40 mg Documented by: ANTOIC Losartan Potassium (Losartan Potassium 50 Mg Tablet) 100 mg PO DAILY [facility]; Protocol Last Admin: 02/16/21 10:02 Dose: 100 mg Documented by: DAISY Melatonin (Melatonin 3 Mg Tablet) 3 mg PO BEDTIME PRN PRN Reason: insomnia Last Admin: 02/12/21 23:12 Dose: 3 mg Documented by: JAMAAL Metoprolol Succinate (Metoprolol Succinate Er 25 Mg Tab.Er.24h) 25 mg PO DAILY [facility]; Protocol Last Admin: 02/16/21 10:01 Dose: 25 mg Documented by: DAISY Olanzapine (Olanzapine 2.5 Mg Tablet) 2.5 mg PO BID [facility] Last Admin: 02/16/21 10:04 Dose: Not Given Documented by: DAISY Non-Admin Reason: ordered for other llab Olanzapine (Olanzapine 2.5 Mg Tablet) 2.5 mg PO Q6H PRN PRN Reason: agitation, anxiety Last Admin: 02/16/21 10:03 Dose: 2.5 mg Documented by: DAISY Ondansetron HCl (Ondansetron Hcl 4 Mg/2 Ml Vial) 4 mg IVPUSH Q8H PRN PRN Reason: Nausea and Vomiting Pharmacy Consult (Consult Rx Perform Med Rec) 1 each MISCELLANE ONCE PRN PRN Reason: Consult order Sodium Chloride (0.9 % Sodium Chloride Flush 3 Ml Syringe) 3 ml IVFLUSH QSHIFT [facility] Last Admin: 02/16/21 10:00 Dose: 3 ml Documented by: DAISY Timolol Maleate (Timolol Maleate 0.5 % Oph Cathryn 5 Ml Drbtl) 1 drop EYE-RIGHT DAILY [facility] Last Admin: 02/16/21 10:05 Dose: 1 drop Documented by: DAISY Labs CBC & Chem 7: 02/12/21 06:26 02/16/21 06:36 Labs: Laboratory Results - last 24 hr 02/16/21 06:36 Anion Gap 12 Estim Creat Clear Calc 49.9 Estimated GFR > 60 Random Glucose 109 Calcium 9.7 Assessment and Plan (1) Moderate malnutrition: Status: Acute (2) Hypokalemia: Status: Acute (3) Severe anxiety: Status: Acute (4) Hyponatremia: Status: Acute Assessment and Plan: hospital d#6 80yo F with severe anxiety admitted to hyponatremia with Na 116 # hyponatremia - likely due to HCTZ + escitalopram, perhaps excess fluid intake - Nephro following, 2 doses of urea given and fluid restricted, sodium now 137 - d/c'ed HCTZ + escitalopram - will d/c fluid restriction # hypoK - repleted, d/c'ed HCTZ # HTN - continue losartan- increased back to home dose. continue metoprolol. HCTZ d/c'ed as above. may need to add amlodipine if needed for BP control # CAD s/p PCI - continue DAPT, ezetimibe # severe anxiety + depressionm - d/c'ed escitalopram due to hyponatremia - psychiatry consultation: started olanzapine standing + prn. HCP will be invoked and pt will be transferred to inpatient psychiatry # moderate protein/calorie malnutrtion - dietary supplementation # VTE ppx - LMWH # dispo - awaiting inpt geriatric psychiatry bed on M1 Quality Stroke Does the patient have a stroke diagnosis?: No VTE Prior VTE?: No VTE Risk Level:: Medical - moderate - high VTE Device Contraindication: Treatment Not Indicated VTE Drug Contraindication: N/A - Med Ordered
[2021-02-16] MEDS: LORazepam 2 MG/ML VIAL 0.5 MG IVPUSH (21:17)
[2021-02-16] MEDS: Enoxaparin Sodium 40 MG/0.4 ML SYRINGE SUBCUT (23:52)
[2021-02-17] VITALS (8 sets, daily range): BP systolic 102–177; BP diastolic 40–79; PULSE 68–108; RESP 18–20; TEMP 36.8–37.4; O2SAT 94–98
[2021-02-17 05:59] LABS: Sodium 134 mmol/L (135-145)
[2021-02-17] MEDS: 0.9 % Sodium Chloride Flush 3 ML SYRINGE IVFLUSH ×4 (08:29→21:14)
[2021-02-17] MEDS: Losartan Potassium 50 MG TABLET 100 MG PO (08:30)
[2021-02-17] MEDS: Ezetimibe 10 MG TABLET PO (08:30)
[2021-02-17] MEDS: Aspirin 81 MG TAB.CHEW PO (08:30)
[2021-02-17] MEDS: Clopidogrel Bisulfate 75 MG TABLET PO (08:30)
[2021-02-17] MEDS: OLANZapine 2.5 MG TABLET PO ×2 (08:30→21:14)
[2021-02-17] MEDS: timoloL maleate 0.5 % Oph Sol 5 ML DRBTL 1 DROP EYE-RIGHT (08:30)
[2021-02-17] MEDS: Metoprolol Succinate ER 25 MG TAB.ER.24H PO (08:30)
--- NOTE | 2021-02-17 10:37 | PM.PNNEP ---
Subjective Subjective Date of Service: 02/18/21 Interval history: Evnets ntoed Physical Exam Vital Signs: Vital Signs: Last Vital Signs Temp 99.4 F 02/17/21 07:38 Pulse 86 02/17/21 08:30 Resp 18 02/17/21 07:38 BP 120/59 L 02/17/21 08:30 Pulse Ox 98 02/17/21 07:38 BMI result Body Mass Index 19.6 Const: Other: very anxious General: cooperative, no acute distress, alert and awake Orientation/consciousness: patient oriented x3 HENMT: Head: Yes normocephalic and Yes atraumatic Eyes: General: appearance normal, both eyes and all related structures Neck: Neck: Yes supple Resp: Effort & Inspection: normal respiratory effort and decreased respiratory effort Auscultation: clear to auscultation bilaterally Cardio: Rate: regular rate Rhythm: regular rhythm Heart sounds: S1 normal heart sound present and S2 normal heart sound present GI: Palpation (GI): Soft to palpation and nontender Auscultation: normal bowel sounds Skin: General skin exam: no rashes or lesions noted Neuro: General: patient oriented x3 Cognition (Neuro): normal cognition Extrem: General: Yes normal to inspection and Yes no pedal edema Right upper extremity: No no edema Objective Data Labs CBC & Chem 7: 02/12/21 06:26 02/17/21 05:01 Labs: Laboratory Results - last 24 hr 02/17/21 05:01 Sodium 134 L Procedures Date of Service Date of Service: 02/17/21 Assessment & Plan Assessment and plan (1) SHAHIDA (generalized anxiety disorder): Status: Acute (2) Altered mental status: Status: Acute Assessment and Plan: (1) Hyponatremia: ?Status:?Acute ?Assessment and Plan: Sna normalized euvolemic hyponatremia multifactorial: -HCTZ -low solute intake -excess PO fluid -Lexapro causing SIADH DC planning Time Spent With Patient Time: Total time spent is greater than 50% in coordination of care (as documented) at patient's floor/unit and/or counseling patient: Time with patient: 15 - 24 minutes Progress Note: Quality Stroke Does the patient have a stroke diagnosis?: No
--- NOTE | 2021-02-17 11:16 | PC.NURSE ---
Skin/Wound assessment completed. Patient has blanchable redness to buttocks. No other skin issues noted or open areas.
--- NOTE | 2021-02-17 13:51 | MHC.CLN ---
F/U PO INTAKE GOOD DIET RX: REGULAR-APPROPRIATE PT RECEIVING ENSURE SUPPLEMENT BID TO INCREASE KCALS SUPPLEMENT PROVIDES 700 KCALS AND 32 G PROTEIN PO RECORDED 100%X3 MEALS NOTED FRAGILE SKIN CONTINUE TO MONITOR PO INTAKE AND SUPPLEMENT ACCEPTANCE
--- NOTE | 2021-02-17 14:07 | MHC.CM.PN ---
Addendum entered by Alisha Hills 02/17/21 15:38: CASSIDY CONTACTED THE CARE TEAM TO DETERMINE IF PT WOULD BE GOING TO [facility] TODAY. CM INFORMED THERE WERE NO OPEN BEDS TODAY AND THAT PT WOULD GO TOMORROW. MESSAGE RELAYED TO Addendum entered by Alisha Hills 02/17/21 15:10: CASSIDY MET WITH PT AND DAUGHTER, MULUGETA, THEY REPORT THERE MAY BE A COPY OF PTS HCP ON FILE AT [facility] WHERE PT GOES FOR PRIMARY CARE. CASSIDY CALLED [facility] IN [place], [phone] AND SPOKE TO PIPO. SHE REPORTS THEY DO HAVE A HCP ON FILE. SHE INDICATED SHE HAD MARKED THE FAX URGENT AND IT SHOULD BE SENT TO CM BY THE END OF THE BUSINESS DAY TODAY. Original Note: PT DOES NOT HAVE A HCP ON FILE CASSIDY MET WITH PTS SON WHO WAS AT BEDSIDE, HE REPORTS HE BELIEVES THERE IS A HCP THAT NAMES HIS SISTERS, EMERSON AND MULUGETA THE AGENTS HOWEVER HE IS UNSURE WHERE A COPY COULD BE OBTAINED. HE REPORTS HIS SISTER, MULUGETA IS GOING TO BE IN THE ROOM IN ABOUT 10. CM WILL RETURN AT THAT TIME.
--- NOTE | 2021-02-17 15:53 | HO.PM.IMPN ---
Subjective Subjective Date of Service: 02/17/21 Interval History: Patient awake alert stuttering anxious keep repeating, difficult to redirect, no other acute issues overnight. Review of Systems Review of Systems: Yes all other systems are reviewed and are negative Physical Exam Vital Signs: Vital Signs: Last Vital Signs Temp 99.0 F 02/17/21 15:04 Pulse 92 02/17/21 15:04 Resp 20 02/17/21 15:04 BP 152/63 H 02/17/21 15:04 Pulse Ox 96 02/17/21 15:04 BMI result Body Mass Index 19.6 General, awake alert, anxious stuttering Neck: supple, no JVD Lungs: clear to auscultation bilaterally, no respiratory distress Heart: regular rate and rhythm, no murmurs Abd: soft, non-tender, non-distended, bowel sounds audible Ext: no edema Skin: No rash Neuro: alert and oriented x3, no focal findings Psych: anxious Objective Data Active Medications Acetaminophen (Acetaminophen 325 Mg Tablet) 650 mg PO Q6H PRN PRN Reason: Pain, Mild (Pain Scale 1-3) Last Admin: 02/12/21 06:40 Dose: 650 mg Documented by: TOBI Aspirin (Aspirin 81 Mg Tab.Chew) 81 mg PO DAILY [facility] Last Admin: 02/17/21 08:30 Dose: 81 mg Documented by: GARTH Clopidogrel Bisulfate (Clopidogrel Bisulfate 75 Mg Tablet) 75 mg PO DAILY [facility] Last Admin: 02/17/21 08:30 Dose: 75 mg Documented by: GARTH Docusate Sodium (Docusate Sodium 100 Mg Capsule) 100 mg PO DAILY PRN PRN Reason: Constipation Last Admin: 02/13/21 21:23 Dose: 100 mg Documented by: LEXA Ezetimibe (Ezetimibe 10 Mg Tablet) 10 mg PO DAILY [facility] Last Admin: 02/17/21 08:30 Dose: 10 mg Documented by: GARTH Enoxaparin Sodium (Enoxaparin Sodium 40 Mg/0.4 Ml Syringe) 40 mg SUBCUT Q24H [facility] Last Admin: 02/16/21 23:52 Dose: 40 mg Documented by: KATERINA Losartan Potassium (Losartan Potassium 50 Mg Tablet) 100 mg PO DAILY [facility]; Protocol Last Admin: 02/17/21 08:30 Dose: 100 mg Documented by: GARTH Melatonin (Melatonin 3 Mg Tablet) 3 mg PO BEDTIME PRN PRN Reason: insomnia Last Admin: 02/12/21 23:12 Dose: 3 mg Documented by: JAMAAL Metoprolol Succinate (Metoprolol Succinate Er 25 Mg Tab.Er.24h) 25 mg PO DAILY [facility]; Protocol Last Admin: 02/17/21 08:30 Dose: 25 mg Documented by: GARTH Olanzapine (Olanzapine 2.5 Mg Tablet) 2.5 mg PO BID [facility] Last Admin: 02/17/21 08:30 Dose: 2.5 mg Documented by: GARTH Olanzapine (Olanzapine 2.5 Mg Tablet) 2.5 mg PO Q6H PRN PRN Reason: agitation, anxiety Last Admin: 02/16/21 10:03 Dose: 2.5 mg Documented by: DAISY Ondansetron HCl (Ondansetron Hcl 4 Mg/2 Ml Vial) 4 mg IVPUSH Q8H PRN PRN Reason: Nausea and Vomiting Pharmacy Consult (Consult Rx Perform Med Rec) 1 each MISCELLANE ONCE PRN PRN Reason: Consult order Sodium Chloride (0.9 % Sodium Chloride Flush 3 Ml Syringe) 3 ml IVFLUSH QSHIFT [facility] Last Admin: 02/17/21 15:04 Dose: 3 ml Documented by: JO-ANN Timolol Maleate (Timolol Maleate 0.5 % Oph Cathryn 5 Ml Drbtl) 1 drop EYE-RIGHT DAILY [facility] Last Admin: 02/17/21 08:30 Dose: 1 drop Documented by: GARTH Labs CBC & Chem 7: 02/12/21 06:26 02/17/21 05:01 Assessment and Plan (1) SHAHIDA (generalized anxiety disorder): Status: Acute (2) Moderate malnutrition: Status: Acute (3) Hyponatremia: Status: Acute (4) Syndrome of inappropriate ADH (SIADH) secretion: Status: Acute Assessment and Plan: hospital d#6 80yo F with severe anxiety admitted to hyponatremia with Na 116 # hyponatremia - likely due to HCTZ + escitalopram, and due to excess fluid intake - sodium improved to 134 , was placed on fluid restriction and treated with urea, since sodium normalize fluid restriction discontinued, HCTZ + escitalopram discontinued, # hypoK - repleted, d/c'ed HCTZ # HTN - continue losartan home dose.? continue metoprolol.? HCTZ d/c'ed as above.? BP stable # CAD s/p PCI - continue DAPT, ezetimibe # severe anxiety + depressionm - d/c'ed escitalopram due to hyponatremia - psychiatry consultation obtaine, patient started on Zyprexa 2.5 mg b.i.d. and as needed, HCP invoked and pt. will be transferred to inpatient psychiatry for severe generalized anxiety. # moderate protein/calorie malnutrtion - dietary supplementation # VTE ppx - LMWH # dispo - awaiting in geriatric psychiatry bed likely will be available tomorrow. Quality Stroke Does the patient have a stroke diagnosis?: No VTE Prior VTE?: No VTE Risk Level:: Medical - moderate - high VTE Device Contraindication: Treatment Not Indicated VTE Drug Contraindication: N/A - Med Ordered
[2021-02-17] MEDS: Enoxaparin Sodium 40 MG/0.4 ML SYRINGE SUBCUT (21:14)
[2021-02-18 03:15] VITALS: BP 156/83; PULSE 100; RESP 18; TEMP 37.2; O2SAT 95
[2021-02-18 07:25] VITALS: BP 143/65; PULSE 96; RESP 17; TEMP 37; O2SAT 97
[2021-02-18 08:56] VITALS: BP 143/65; PULSE 96
[2021-02-18] MEDS: Losartan Potassium 50 MG TABLET 100 MG PO (08:56)
[2021-02-18 08:57] VITALS: BP 143/65; PULSE 96
[2021-02-18] MEDS: 0.9 % Sodium Chloride Flush 3 ML SYRINGE IVFLUSH (08:57)
[2021-02-18] MEDS: Metoprolol Succinate ER 25 MG TAB.ER.24H PO (08:57)
[2021-02-18] MEDS: Aspirin 81 MG TAB.CHEW PO (08:57)
[2021-02-18] MEDS: Clopidogrel Bisulfate 75 MG TABLET PO (08:57)
[2021-02-18] MEDS: OLANZapine 2.5 MG TABLET PO ×2 (08:57→10:55)
[2021-02-18] MEDS: Ezetimibe 10 MG TABLET PO (08:57)
[2021-02-18] MEDS: timoloL maleate 0.5 % Oph Sol 5 ML DRBTL 1 DROP EYE-RIGHT (09:05)
--- NOTE | 2021-02-18 09:34 | PM.PNNEP ---
Subjective Subjective Date of Service: 02/18/21 Interval history: Events noted Na at 134 Physical Exam Vital Signs: Vital Signs: Last Vital Signs Temp 98.6 F 02/18/21 07:25 Pulse 96 02/18/21 08:57 Resp 17 02/18/21 07:25 BP 143/65 H 02/18/21 08:57 Pulse Ox 97 02/18/21 07:25 BMI result Body Mass Index 19.6 Const: Other: very anxious General: cooperative, no acute distress, alert and awake Orientation/consciousness: patient oriented x3 HENMT: Head: Yes normocephalic and Yes atraumatic Eyes: General: appearance normal, both eyes and all related structures Neck: Neck: Yes supple Resp: Effort & Inspection: normal respiratory effort and decreased respiratory effort Auscultation: clear to auscultation bilaterally Cardio: Rate: regular rate Rhythm: regular rhythm Heart sounds: S1 normal heart sound present and S2 normal heart sound present GI: Palpation (GI): Soft to palpation and nontender Auscultation: normal bowel sounds Skin: General skin exam: no rashes or lesions noted Neuro: General: patient oriented x3 Cognition (Neuro): normal cognition Extrem: General: Yes normal to inspection and Yes no pedal edema Right upper extremity: No no edema Objective Data Labs CBC & Chem 7: 02/12/21 06:26 02/17/21 05:01 Procedures Date of Service Date of Service: 02/18/21 Assessment & Plan Assessment and plan (1) SHAHIDA (generalized anxiety disorder): Status: Acute (2) Altered mental status: Status: Acute Assessment and Plan: (1) Hyponatremia: ?Status:?Acute ?Assessment and Plan: pNa at 134 Euvolemic hyponatremia multifactorial: -HCTZ -low solute intake -excess PO fluid -Lexapro causing SIADH Keep on PO water restriction DC planning Time Spent With Patient Time: Total time spent is greater than 50% in coordination of care (as documented) at patient's floor/unit and/or counseling patient: Time with patient: 15 - 24 minutes Progress Note: Quality Stroke Does the patient have a stroke diagnosis?: No
[2021-02-18 11:19] VITALS: BP 148/74; PULSE 87; RESP 18; TEMP 36.1; O2SAT 95
--- NOTE | 2021-02-18 11:24 | PM.DS ---
DS: Providers Provider Date of Service: 02/18/21 Date of admission: 02/11/21 19:36 Primary care physician: Krystle Christine NP Consults: 02/11/21 22:06 Consult to Nephrology Routine Consulting Provider: [facility] Reason for consultation: hyponatremia Has provider been notified: Yes 02/13/21 14:11 Consult to Psychiatry Routine Consulting Provider: Psych Covering Reason for consultation: anxiety Has provider been notified: No 02/14/21 16:34 Consult to Psychiatry Routine Consulting Provider: Psych Covering Reason for consultation: 2nd request. Severe, disabling anxiety. 02/15/21 11:47 Consult to Care Team Stat Comment: Reason for consultation: severe anxiety. MEDICALLY CLEARED DS: Diagnosis Discharge Diagnosis (1) SHAHIDA (generalized anxiety disorder): Status: Acute (2) Altered mental status: Status: Acute DS: Summary Hospital Course Hospital Course: Chief Complaint: anxiety this is a 80 yo F with pmhx of anxiety, HTN, CAD,? who presents to the hospital with severe anxiety, feeling overwhelmed.? Her daughter at bedside reports that patient for Will, she had a workup at her PCPs office for dementia? but her dementia questionnaire did not show any significant dementia, and patient was diagnosed with depression and started on Lexapro.? Her Lexapro was recently increased but pt has remained significantly anxious and overwhelmed. she has also been? drinking significant amount of water because her daughter was concerned that she may not be eating or drinking well. ? On my exam patient appears very anxious, keeps repeating that she forgot to put her name and give her address to the [employer] who is currently working on her with, she is hard to focus but answers questions appropriately otherwise.? She denies having any chest pain, no abdominal pain, no nausea or vomiting, no diarrhea constipation, no urinary symptoms and no lower extremity edema. On arrival to the ED patient hemodynamically stable with no significant abnormal vitals Labs are significant for WBC count of 7.8, hemoglobin of 12.1, hematocrit 33.2, sodium of 116, potassium of 2.9, chloride level of 81, BUN of 8, creatinine of 0.61, serum osmolality of 249, urine osmolality of 213, Nephrology was consulted, given 1 dose of urea. ? patient will be admitted for further management. Hospital course 80yo F with severe anxiety admitted for hyponatremia with Na 116, it was felt that hyponatremia is multifactorial due to use of hydrochlorothiazide and escitalopram and due to excessive fluid intake and low solute intake Patient treated with urea, fluid restriction sodium gradually improved sodium 134, patient noted to have excessive water intake therefore recommend 1.5 L of fluid restriction, recommend to repeat lytes at a.m. And q.weekly. Patient also noted to have hypokalemia likely due to hydrochlorothiazide, potassium repleted and normalized Hypertension BP stable continue losartan and metoprolol History of coronary artery disease status post PCI , continue DAPT, ezetimibe Severe anxiety + depression was on escitalopram that has been discontinued due to hyponatremia seen by psych started on Zyprexa 2.5 mg b.i.d. and as needed, now being transferred to [facility] due to persistent symptoms of anxiety moderate protein/calorie malnutrtion continue dietary supplements. Review of Systems Time Spent with Patient Time attestation: Total time spent providing and/or coordinating discharge services: Discharge coordination time: Greater than 30 minutes Quality: Stroke Does the patient have a stroke diagnosis?: No Physical Exam Vital Signs: Vital Signs: Last Vital Signs Temp 96.9 F 02/18/21 11:19 Pulse 87 02/18/21 11:19 Resp 18 02/18/21 11:19 BP 148/74 H 02/18/21 11:19 Pulse Ox 95 02/18/21 11:19 BMI result Body Mass Index 19.6 General, awake, alert, anxious stuttering Neck: supple, no JVD Lungs: clear to auscultation bilaterally, no respiratory distress Heart: regular rate and rhythm, no murmurs Abd: soft, non-tender, non-distended, bowel sounds audible Ext: no edema Skin:? No rash Neuro: alert and oriented x3, no focal findings Psych: anxious Discharge Plan Discharge Patient Disposition: Xfer Psychiatric Hosp Discharge Diagnosis: Acute hyponatremia Generalized anxiety disorder [place] [facility] [place] 1 [place] Krystle Christine NP [Primary Care Provider] - 1 Week Discharge Medications: New acetaminophen 325 mg Tablet 650 mg PO Q6H PRN (Reason: Pain, Mild (Pain Scale 1-3)) Qty: 1 RF: 0 olanzapine 2.5 mg Tablet 2.5 mg PO BID Qty: 30 RF: 0 olanzapine 2.5 mg Tablet 2.5 mg PO Q6H PRN (Reason: agitation, anxiety) Qty: 30 RF: 0 Continued melatonin 3 mg tablet 1 tab PO BEDTIME PRN (Reason: insomnia) RF: 0 clopidogrel 75 mg Tablet 75 mg PO DAILY RF: 0 aspirin 81 mg Tablet 81 mg PO DAILY RF: 0 metoprolol succinate 25 mg Tablet Extended Release 24 Hr 25 mg PO DAILY RF: 0 timolol maleate 0.5 % Drops 1 drp ophthalmic-Right DAILY RF: 0 losartan 100 mg Tablet 100 mg PO DAILY RF: 0 ezetimibe 10 mg Tablet 10 mg PO DAILY RF: 0 Discontinued hydrochlorothiazide 25 mg Tablet 25 mg PO DAILY RF: 0 escitalopram oxalate 10 mg tablet 1 tab PO DAILY RF: 0 Discharge Orders: Discharge Order (Routine); Ordered 02/18/21 Ordered By: Jimmie Kenny Diet: advance to usual diet Activity on Discharge: As tolerated Stand Alone Forms: Patient Portal Discharge page Care Plan Goals: Hyponatremia resolved was multifactorial due to hydrochlorothiazide and Lexapro now discontinued also due to decreased solute intake recommend to continue 1.5 L fluid restriction Check lytes at am Health Concerns: Hyponatremia restrict 1.5 L of fluid Plan of Treatment: Being transferred to [facility] for generalized anxiety disorder, follow lytes at a.m. restrict 1.5 L of fluid Assessment: As above
== END 2021-02-18 14:30 | DRG 641 ==
LOC: HO.ED 19:40 → HO.EDOVER 19:43 → HO.IMC 02-12 16:52
PROVIDERS: Family Medicine; Internal Medicine Nephrology; Admitting Provider Internal Medicine; Emergency Provider Emergency Medicine; PCP Nurse Practitioner Family; Visit Provider Hospitalist
DX: E87.1 Hypo-osmolality and hyponatremia (principal); E44.0 Moderate protein-calorie malnutrition; Z68.1 Body mass index [BMI] 19.9 or less, adult; Z20.822 Contact with and (suspected) exposure to COVID-19; E87.6 Hypokalemia; F32.A Depression, unspecified; I10 Essential (primary) hypertension; F41.1 Generalized anxiety disorder; T50.2X5A Adverse effect of carbonic-anhydrase inhibitors, benzothiadiazides and other diuretics, initial encounter; T43.225A Adverse effect of selective serotonin reuptake inhibitors, initial encounter; Y92.9 Unspecified place or not applicable; I25.2 Old myocardial infarction; Z79.02 Long term (current) use of antithrombotics/antiplatelets; Z79.82 Long term (current) use of aspirin; Z79.899 Other long term (current) drug therapy
CPT/HCPCS: 36415; 80048; 80051; 80076; 80307; 81003; 82533; 83930; 83935; 84295; 84300; 84443; 84550; 85025; 87635; 93005; 96374; 99284; J1650; J2060

== ENCOUNTER 2021-02-18 14:52 | Inpatient (IN) | payer MEDICARE, OTHER, SELFPAY ==
--- NOTE | ~2021-02-18 | CT_ITS ---
EXAMINATION: CT HEAD WITHOUT CONTRAST CLINICAL INFORMATION: Recent change in mental status COMPARISON: None TECHNIQUE: Contiguous axial imaging was performed from the skull base to vertex without intravenous administration of contrast. This CT examination was performed using dose optimization techniques as appropriate, variously including the following: *Automated exposure control *Adjustment of mA and/or kV according to patient size (this includes techniques or standardized protocols for targeted exams where dose is matched to indication/reason for exam; i.e. extremities or head) *Use of iterative reconstruction technique DLP: 720 mGy-cm FINDINGS: There is no evidence of an extra-axial collection. There is no evidence of intra-axial or extra-axial hemorrhage. The ventricles and extra-axial CSF spaces are slightly prominent suggestive of mild generalized atrophy. There is nonspecific periventricular white matter disease. No mass, mass effect or infarct is seen. No skull fracture is seen. There is a 1 cm nonspecific lucent lesion seen in the left parietal bone. Visualized paranasal sinuses, mastoid air cells and middle ears are clear. CT/CT head/brain wo con IMPRESSION: No acute findings. Mild generalized atrophy and nonspecific periventricular white matter disease. 1 cm lucent lesion in the left parietal bone.
--- NOTE | ~2021-02-18 | MR_ITS ---
EXAMINATION: MR BRAIN WITHOUT CONTRAST CLINICAL INFORMATION: Cognitive impairment. Cognitive decline. COMPARISON: CT head from 02/19/2021. TECHNIQUE: Multiplanar, multisequence MR imaging was performed through the brain without the use of intravenous gadolinium. Additional high-resolution anatomic imaging was performed through the brain and images were submitted for post processing including auto-segmentation and volumetric analysis. FINDINGS: No focal restricted diffusion is demonstrated to suggest acute or subacute cerebral ischemia. No evidence of acute or chronic hemorrhagic products on heme-sensitive imaging. Scattered partially confluent periventricular, deep white matter, and brainstem T2 FLAIR hyperintensities consistent with mild to moderate underlying microangiopathy. Proportional prominence of the ventricles and sulcal spaces without evidence of obstructive hydrocephalus. No abnormal mass effect. No midline shift. Normal appearance of the pituitary gland. Normal positioning of the cerebellar tonsils. Normal arterial and venous vascular flow voids are present. There is a single well demarcated 0.8 cm T2 hyperintense structure within the marrow cavity of the left parietal bone that is nonspecific but may represent a small venous de la vega. Otherwise, normal homogeneous marrow signal. Mild mucosal thickening of the paranasal sinuses. Small right-sided mastoid effusion. Bilateral lens extractions. MR/MR brain wo con w neuroquant IMPRESSION: 1. No acute intracranial abnormalities. 2. Mild to moderate underlying microangiopathy. 3. Qualitatively, there is moderate generalized cerebral volume loss. Quantitative analysis of the NeuroQuant series will be postprocessed with findings dictated as an addendum.
--- NOTE | ~2021-02-18 | US_ITS ---
EXAMINATION: US VENOUS ULTRASOUND WITH DOPPLER LOWER EXTREMITY, RIGHT CLINICAL INFORMATION: Right leg swelling. COMPARISON: None TECHNIQUE: Ultrasound of the deep veins is performed from the hip to the calf with compression sonography and color and pulse Doppler assessment. Spectral analysis with color-flow imaging is performed. FINDINGS: FINDINGS: The common femoral vein is compressible and exhibits a normal phasic waveform; this suggests that the iliac veins are widely patent above. Within the proximal thigh, the visualized profunda femoris vein is normal. The examined greater saphenous vein and saphenofemoral junction are normal. Superficial femoral vein is patent in the proximal, mid and distal thigh. Popliteal vein is normal to the level of the trifurcation. On compression bravo scale and color Doppler images, occlusive and nonocclusive thrombus is detected within the posterior tibial and peroneal veins of the calf. No evidence of Martins's cyst. US/US venous duplex LE RT IMPRESSION: There is deep vein thrombosis involving peroneal and posterior tibial veins of the calf. However, no evidence of thrombosis within the popliteal or femoral veins. Note: We have been attempting to provide a direct [id number] communication of test results. Contact was made. The critical test result was discussed with Dr. Lynn at 9:50 PM on 02/28/2021 and it was ascertained that the content and the importance of the findings was understood at the time of the direct communication.
--- NOTE | ~2021-02-18 | MR_ITS ---
EXAMINATION: MR BRAIN WITHOUT CONTRAST CLINICAL INFORMATION: Cognitive impairment. Cognitive decline. COMPARISON: CT head from 02/19/2021. TECHNIQUE: Multiplanar, multisequence MR imaging was performed through the brain without the use of intravenous gadolinium. Additional high-resolution anatomic imaging was performed through the brain and images were submitted for post processing including auto-segmentation and volumetric analysis. FINDINGS: No focal restricted diffusion is demonstrated to suggest acute or subacute cerebral ischemia. No evidence of acute or chronic hemorrhagic products on heme-sensitive imaging. Scattered partially confluent periventricular, deep white matter, and brainstem T2 FLAIR hyperintensities consistent with mild to moderate underlying microangiopathy. Proportional prominence of the ventricles and sulcal spaces without evidence of obstructive hydrocephalus. No abnormal mass effect. No midline shift. Normal appearance of the pituitary gland. Normal positioning of the cerebellar tonsils. Normal arterial and venous vascular flow voids are present. There is a single well demarcated 0.8 cm T2 hyperintense structure within the marrow cavity of the left parietal bone that is nonspecific but may represent a small venous de la vega. Otherwise, normal homogeneous marrow signal. Mild mucosal thickening of the paranasal sinuses. Small right-sided mastoid effusion. Bilateral lens extractions. MR/MR head/brain wo con IMPRESSION: 1. No acute intracranial abnormalities. 2. Mild to moderate underlying microangiopathy. 3. Qualitatively, there is moderate generalized cerebral volume loss. Quantitative analysis of the NeuroQuant series will be postprocessed with findings dictated as an addendum.
--- NOTE | ~2021-02-18 | CT_ITS ---
EXAMINATION: CT HEAD WITHOUT CONTRAST CLINICAL INFORMATION: Altered mental status. COMPARISON: CT head dated from 02/19/2021. TECHNIQUE: Contiguous axial imaging was performed from the skull base to vertex without intravenous administration of contrast. This CT examination was performed using dose optimization techniques as appropriate, variously including the following: *Automated exposure control *Adjustment of mA and/or kV according to patient size (this includes techniques or standardized protocols for targeted exams where dose is matched to indication/reason for exam; i.e. extremities or head) *Use of iterative reconstruction technique DLP: 672 mGy-cm FINDINGS: There is no evidence of acute intracranial hemorrhage or territorial infarction. No abnormal mass effect or midline shift is seen. Jo to white matter differentiation is well preserved. No extra-axial fluid collections are identified. The ventricles are normal in size. There is no abnormal attenuation within the brain parenchyma. Unchanged nonspecific 1 cm lucent lesion in the left parietal bone. No acute osseous or soft tissue abnormalities. The mastoid air cells and visualized portions of the paranasal sinuses are well aerated. CT/CT head/brain wo con IMPRESSION: No acute intracranial pathology.
[2021-02-18 15:23] VITALS: BMI 18.9
--- NOTE | 2021-02-18 15:27 | PHA.MEDREC ---
Pharmacy Consult ? Medication Reconciliation Pharmacy has completed the medication reconciliation. Patient transfer from medical floor to S1.
[2021-02-18] MEDS: OLANZapine 2.5 MG TABLET PO ×2 (15:58→20:03)
--- NOTE | 2021-02-18 16:21 | P.HPPS_ITS ---
HPI Date of Service: 02/18/21 Chief Complaint: Anxiety Disorder Sources of Information: patient interviewed, chart reviewed and crisis/core team assessment reviewed HPI Subjective Notes: Moe Warning and Conditional Voluntary Narrative: The patient is a 80-year-old female, , mother of adult children, retired, living in [place] and [place] for the last years, with a prior history of anxiety disorder not treated by mental health providers, admitted into the emergency room due to exacerbation of anxiety and perseverative thoughts. She was assessed in the emergency room and she had severe hyponatremia and she was initially admitted into the hospital for medical stabilization. She was treated in the med surge unit and when she was medically stable, she was transferred to this facility for psychiatric stabilization. Apparently, the patient has been extremely anxious and in December this year her primary care physician started her on Lexapro. The care team found out that she has perseverative thoughts and she was slightly disorganized is stating that she has not told her eviction specialist about her meeting address and it has ruined her life. She was extremely guilty and she believes now that she will lose her home in [place]. Also, her daughter reported that she has some disorganized behavior with pressure speech and perseverative thought process. Her daughter also reported that the patient has lost at least 15 lb in the last 2 months and she has not been sleeping or taking care of herself.. On interview, the patient looked internally preoccupied, anxious and refused to elaborate more. She was able to contract for safety and she signed a conditional voluntary. The patient understood the moe warning. Past Psychiatric History: Denies hx of IPLOC or crisis evals. No hx of past psych meds other than recent prescription for lexapro by PCP. Medical Evaluation Reviewed: Yes [facility] Medical History HTN (hypertension) Myocardial infarct, old Surgical History H/O heart artery stent Family History: Denies Social History: Good social support, she lives between [place] and [place] and her family is very involved in her care Substance History: Denies Trauma History: Denies Diagnostics Vital Signs (24Hr): BMI result Body Mass Index 18.9 Meds/Allergies Meds Home Medications Acetaminophen (Acetaminophen 325 Mg Tablet) 650 mg PO Q6H PRN PRN Reason: Pain, Mild (Pain Scale 1-3) Al Hydroxide/Mg Hydroxide (Magnesium Hydrox/Alum Hydrox 30 Ml Oral.Susp) 30 ml PO Q6H PRN PRN Reason: Heartburn/Nausea Aspirin (Aspirin 81 Mg Tab.Chew) 81 mg PO DAILY [facility] Clopidogrel Bisulfate (Clopidogrel Bisulfate 75 Mg Tablet) 75 mg PO DAILY [facility] Docusate Sodium (Docusate Sodium 100 Mg Capsule) 100 mg PO DAILY PRN PRN Reason: Constipation Ezetimibe (Ezetimibe 10 Mg Tablet) 10 mg PO DAILY [facility] Enoxaparin Sodium (Enoxaparin Sodium 40 Mg/0.4 Ml Syringe) 40 mg SUBCUT Q24H [facility] Losartan Potassium (Losartan Potassium 50 Mg Tablet) 100 mg PO DAILY [facility]; Protocol Magnesium Hydroxide (Milk Of Magnesia 30 Ml Oral.Susp) 30 ml PO DAILY PRN PRN Reason: Constipation Melatonin (Melatonin 3 Mg Tablet) 3 mg PO BEDTIME PRN PRN Reason: insomnia Metoprolol Succinate (Metoprolol Succinate Er 25 Mg Tab.Er.24h) 25 mg PO DAILY [facility]; Protocol Olanzapine (Olanzapine 2.5 Mg Tablet) 2.5 mg PO Q6H PRN PRN Reason: agitation, anxiety Last Admin: 02/18/21 15:58 Dose: 2.5 mg Documented by: Olanzapine (Olanzapine 2.5 Mg Tablet) 2.5 mg PO BID [facility] Pharmacy Consult (Consult Rx Perform Med Rec) 1 each MISCELLANE ONCE PRN PRN Reason: Consult order Timolol Maleate (Timolol Maleate 0.5 % Oph Cathryn 5 Ml Drbtl) 1 drop EYE-RIGHT DAILY [facility] Trazodone HCl (Trazodone Hcl 50 Mg Tablet) 50 mg PO BEDTIME PRN PRN Reason: Insomnia Allergies Allergies Allergy/AdvReac Type Severity Reaction Status Date / Time melons Allergy Unknown throat Uncoded 08/13/11 00:00 sweling Mental Status Exam Mental Status Exam Patient Appearance: Well Grooomed Patient Orientation: Person and Situation Level of Consciousness: Awake Patient Behavior: Guarded, Passive and Suspicious Mood Description: Depressed Affect Description: Constricted Patient Cognition Impaired: No Ability to Follow Directions: Fair Speech Pattern: Clear Hallucinations: None Delusions: Paranoid Ideation Thought Content: positive for Linear and positive for Poverty of Content Judgement: Poor Assessment & Plan Assessment & Plan (1) Syndrome of inappropriate ADH (SIADH) secretion: Status: Acute Code(s): E22.2 - Syndrome of inappropriate secretion of antidiuretic hormone (2) Moderate malnutrition: Status: Acute Code(s): E44.0 - Moderate protein-calorie malnutrition (3) Delirium due to another medical condition: Status: Acute Code(s): F05 - Delirium due to known physiological condition (4) SHAHIDA (generalized anxiety disorder): Status: Acute Code(s): F41.1 - Generalized anxiety disorder (5) Altered mental status: Status: Acute Code(s): R41.82 - Altered mental status, unspecified Assessment and Plan: The patient is an elderly female, with over with good social support admitted initially for increased anxiety but later transferred to the medical unit for severe hyponatremia. The patient complains of a survey griffin of depression and anxiety but recently she has perseverative thoughts, disorganized thought process and increased guilt. Plan 1. Gather collateral information. 2. Continue Zyprexa 2.5 mg p.o. b.i.d. for disorganized thought process. 3. Add Ativan 0.5 mg p.o. q.6 hours p.r.n. severe anxiety. 4. Continue dementia workout. 5. CT scan head without contrast. 6. Reassessment with results Reason for continued inpatient stay Substantial Risk for: inability to function, rapid decompensation and med/psych decompensation
[2021-02-18 18:00] VITALS: BP 167/77; PULSE 109; RESP 18; TEMP 36.4; O2SAT 96
--- NOTE | 2021-02-18 18:46 | PC.NURSE ---
Pt admitted to floor as transfer from [facility]. The pt is very anxious, disorganized with speech. 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 Pt reports no therapist or Psychiatrist. The pt's daughter reports the pt had a fall X3 years ago, with resultant post concussion syndrome, has been unsteady and dizzy at times every since then. The pt stated I must have done something really bad to make God hate me, he must really hate me, I am bad . The pt and her daughter report the pt is extremely hard of hearing, and is currently utilizing hearing aids that are not strong enough. The pt becomes easily flustered, and will start to cry and state It's all over, my life is all over, I will never be able to do things again . Pt oriented to floor, visiting hours, and use of phones. The pt agreed to sign some paperwork, states she will sign more tomorrow after she is able to rest.
[2021-02-18] MEDS: LORazepam 0.5 MG TABLET PO (20:03)
[2021-02-18] MEDS: Enoxaparin Sodium 40 MG/0.4 ML SYRINGE SUBCUT (20:04)
[2021-02-19] MEDS: LORazepam 0.5 MG TABLET PO ×2 (03:14→22:37)
[2021-02-19 08:00] VITALS: BP 184/82; PULSE 100; TEMP 36.2; O2SAT 96
[2021-02-19 08:22] VITALS: BP 184/82; PULSE 100
[2021-02-19] MEDS: Losartan Potassium 50 MG TABLET 100 MG PO (08:22)
[2021-02-19 08:23] VITALS: BP 184/82; PULSE 100
[2021-02-19] MEDS: Metoprolol Succinate ER 25 MG TAB.ER.24H PO (08:23)
[2021-02-19] MEDS: OLANZapine 2.5 MG TABLET PO ×3 (08:23→20:29)
[2021-02-19] MEDS: Aspirin 81 MG TAB.CHEW PO (08:23)
[2021-02-19] MEDS: Clopidogrel Bisulfate 75 MG TABLET PO (08:23)
[2021-02-19] MEDS: Ezetimibe 10 MG TABLET PO (08:24)
[2021-02-19] MEDS: timoloL maleate 0.5 % Oph Sol 5 ML DRBTL 1 DROP EYE-RIGHT (09:59)
[2021-02-19 14:43] VITALS: BMI 18.9
--- NOTE | 2021-02-19 14:55 | HO.PSYCHPN ---
Subjective Subjective Date of Service: 02/19/21 Reason For Visit: Anxiety Disorder Subjective Notes: Conditional Voluntary Interim History: Pt presents as very anxious, hyperventilating at times when talking about big mistake, I lost everything. Pt reports she did not do her will, did not tell her county attorney where she lives and this means she lost everything. Pt tearful repeating over and over that I lost my babies, there is nothing anyone can do. Pt's son with her by her side. Son reports he was with her when she meet with county attorney to do will, son reports this is not the case, pt will not lose anything but there is no way of having rational conversation with pt. Pt denies SI/HI. Pt does not appear internally preoccupied. Mental Status Exam Mental Status Exam Narrative: Appearance: thin, ambulating with walker, casually groomed, fair hygiene in NAD Behavior: anxious, guarded psychomotor:restless Speech:clear, normal rate, soft tone, spontaneous Thought process:repetitive Thought content:thinking she will lose everything because she did not do a will or did not tell county attorney where she lives, which is not the case per son. Mood: anxious Affect: extremely anxious, hyperventilates at times when reporting she will lose everything SI:none HI:none VH/AH:none Delusions:pt refers to they are taking everything away but can't explain who she is referring to Insight/judgment:impaired x 2. Memory/cog: alert, oriented to year, month, place not situation. Needs moca. Diagnostics Vital Signs (24Hr): Vital Signs - 24 hr 02/18/21 18:00 02/19/21 08:00 02/19/21 08:22 Temperature 97.5 F 97.2 F Pulse Rate 109 H 100 100 Respiratory Rate 18 Blood Pressure 167/77 H 184/82 H 184/82 H Pulse Oximetry 96 96 02/19/21 08:23 Temperature Pulse Rate 100 Respiratory Rate Blood Pressure 184/82 H Pulse Oximetry BMI result Body Mass Index 18.9 Imaging Radiology Impressions: ITS Impressions Head CT 02/19/21 08:57 IMPRESSION: No acute findings. Mild generalized atrophy and nonspecific periventricular white matter disease. 1 cm lucent lesion in the left parietal bone. Medications Medications Current Medications Acetaminophen (Acetaminophen 325 Mg Tablet) 650 mg PO Q6H PRN PRN Reason: Pain, Mild (Pain Scale 1-3) Al Hydroxide/Mg Hydroxide (Magnesium Hydrox/Alum Hydrox 30 Ml Oral.Susp) 30 ml PO Q6H PRN PRN Reason: Heartburn/Nausea Aspirin (Aspirin 81 Mg Tab.Chew) 81 mg PO DAILY [facility] Last Admin: 02/19/21 08:23 Dose: 81 mg Documented by: Clopidogrel Bisulfate (Clopidogrel Bisulfate 75 Mg Tablet) 75 mg PO DAILY [facility] Last Admin: 02/19/21 08:23 Dose: 75 mg Documented by: Docusate Sodium (Docusate Sodium 100 Mg Capsule) 100 mg PO DAILY PRN PRN Reason: Constipation Ezetimibe (Ezetimibe 10 Mg Tablet) 10 mg PO DAILY [facility] Last Admin: 02/19/21 08:24 Dose: 10 mg Documented by: Enoxaparin Sodium (Enoxaparin Sodium 40 Mg/0.4 Ml Syringe) 40 mg SUBCUT Q24H [facility] Last Admin: 02/18/21 20:04 Dose: 40 mg Documented by: Lorazepam (Lorazepam 0.5 Mg Tablet) 0.5 mg PO Q6H PRN PRN Reason: severe anxiety Last Admin: 02/19/21 03:14 Dose: 0.5 mg Documented by: Losartan Potassium (Losartan Potassium 50 Mg Tablet) 100 mg PO DAILY [facility]; Protocol Last Admin: 02/19/21 08:22 Dose: 100 mg Documented by: Magnesium Hydroxide (Milk Of Magnesia 30 Ml Oral.Susp) 30 ml PO DAILY PRN PRN Reason: Constipation Melatonin (Melatonin 3 Mg Tablet) 3 mg PO BEDTIME PRN PRN Reason: insomnia Metoprolol Succinate (Metoprolol Succinate Er 25 Mg Tab.Er.24h) 25 mg PO DAILY [facility]; Protocol Last Admin: 02/19/21 08:23 Dose: 25 mg Documented by: Olanzapine (Olanzapine 2.5 Mg Tablet) 2.5 mg PO Q6H PRN PRN Reason: agitation, anxiety Last Admin: 02/18/21 15:58 Dose: 2.5 mg Documented by: Olanzapine (Olanzapine 2.5 Mg Tablet) 2.5 mg PO TID [facility] Pharmacy Consult (Consult Rx Perform Med Rec) 1 each MISCELLANE ONCE PRN PRN Reason: Consult order Timolol Maleate (Timolol Maleate 0.5 % Oph Cathryn 5 Ml Drbtl) 1 drop EYE-RIGHT DAILY [facility] Last Admin: 02/19/21 09:59 Dose: 1 drop Documented by: Trazodone HCl (Trazodone Hcl 50 Mg Tablet) 50 mg PO BEDTIME PRN PRN Reason: Insomnia Allergies Allergies Allergy/AdvReac Type Severity Reaction Status Date / Time melons Allergy Unknown throat Uncoded 08/13/11 00:00 sweling Assessment & Plan Assessment & Plan (1) Syndrome of inappropriate ADH (SIADH) secretion: Status: Resolved Code(s): E22.2 - Syndrome of inappropriate secretion of antidiuretic hormone (2) Moderate malnutrition: Status: Acute Code(s): E44.0 - Moderate protein-calorie malnutrition (3) Delirium due to another medical condition: Status: Acute Code(s): F05 - Delirium due to known physiological condition (4) SHAHIDA (generalized anxiety disorder): Status: Acute Code(s): F41.1 - Generalized anxiety disorder (5) Altered mental status: Status: Resolved Code(s): R41.82 - Altered mental status, unspecified Assessment and Plan: The patient is an elderly female, with over with good social support admitted initially for increased anxiety but later transferred to the medical unit for severe hyponatremia. The patient complains of a survey griffin of depression and anxiety but recently she has perseveration thoughts, disorganized thought process and increased guilt. Plan 1. Gather collateral information. 2. INcrease Zyprexa 2.5 mg p.o. TID for disorganized thought process on 02/19/21 3. Add Ativan 0.5 mg p.o. q.6 hours p.r.n. severe anxiety. 4. Continue dementia workout. 5. CT scan head without contrast on 02/19 showed atrophy, periventricular white matter changes. MRI head with neuroquant would be more sensitive to detect atrophy especially hippocampus. 6. Reassessment with results 7. monitor Na- continue fluid restriccion I spent minutes with the patient and/or on the patient floor today, greater than?50% of which was spent counseling/coordinating care. Reason for contiued inpatient stay Substantial Risk for: inability to function
[2021-02-19 15:52] LABS: Alanine Aminotransferase 17 U/L (0-31); Albumin Level 3.8 g/dL (3.5-5.0); Alkaline Phosphatase 87 U/L (39-117); Anion Gap 11 (12-20); Aspartate Amino Transferase 15 U/L (5-31); Bilirubin Total < 0.2 mg/dL (0.0-1.0); Blood Urea Nitrogen 12 mg/dL (9-16); Carbon Dioxide 24 mmol/L (22-29); Chloride 104 mmol/L (96-108); Creatinine Clr Calc Pharmacy 45.5; Estimated Glomerular Filt Rate > 60; Glucose Random 131 mg/dL (60-115); Potassium 4.5 mmol/L (3.3-5.1); Sodium 134 mmol/L (135-145); Total Protein 6.1 g/dL (6.5-8.0)
[2021-02-19 17:26] LABS: Folate 10.9 ng/mL (> or = 4.0); Vitamin B12 549 pg/mL (200-900)
[2021-02-19 17:43] LABS: Erythrocyte Sedimentation Rate 20 MM/HR (0-20)
[2021-02-19 17:49] LABS: Syphilis Screen Nonreactive (Nonreactive)
[2021-02-19 18:00] VITALS: BP 104/59; PULSE 93; TEMP 36.3; O2SAT 93
[2021-02-19] MEDS: Enoxaparin Sodium 40 MG/0.4 ML SYRINGE SUBCUT (20:26)
[2021-02-19 20:58] VITALS: BP 154/81; PULSE 102; RESP 17; TEMP 37; O2SAT 97
[2021-02-19] MEDS: Melatonin 3 MG TABLET PO (22:37)
--- NOTE | 2021-02-19 22:40 | PC.ADMIT ---
shudders frequently when increasingly anxious.
--- NOTE | 2021-02-20 | ECG_ITS ---
Test Reason : qtc check Blood Pressure : / mmHG Vent. Rate : 094 BPM Atrial Rate : 094 BPM P-R Int : 188 ms QRS Dur : 074 ms QT Int : 354 ms P-R-T Axes : 031 -02 011 degrees QTc Int : 442 ms Sinus rhythm with occasional Premature ventricular complexes Minimal voltage criteria for LVH, may be normal variant ( R in aVL ) Nonspecific ST abnormality Abnormal ECG When compared with ECG of 11-FEB-2021 19:59, Premature ventricular complexes are now Present QT has shortened Referred By: Jessica Duenas Electronically Signed By:Rory Frances
[2021-02-20 07:00] VITALS: BMI 19.5
[2021-02-20] MEDS: Clopidogrel Bisulfate 75 MG TABLET PO (08:20)
[2021-02-20 08:21] VITALS: BP 179/80; PULSE 90
[2021-02-20] MEDS: Metoprolol Succinate ER 25 MG TAB.ER.24H PO (08:21)
[2021-02-20] MEDS: Losartan Potassium 50 MG TABLET 100 MG PO (08:21)
[2021-02-20] MEDS: Aspirin 81 MG TAB.CHEW PO (08:21)
[2021-02-20] MEDS: Ezetimibe 10 MG TABLET PO (08:21)
[2021-02-20] MEDS: LORazepam 0.5 MG TABLET PO ×2 (08:21→20:01)
[2021-02-20] MEDS: OLANZapine 2.5 MG TABLET PO ×2 (08:21→14:13)
[2021-02-20 08:45] VITALS: BP 179/80; PULSE 90; TEMP 36.4; O2SAT 97
[2021-02-20] MEDS: timoloL maleate 0.5 % Oph Sol 5 ML DRBTL 1 DROP EYE-RIGHT (10:29)
--- NOTE | 2021-02-20 14:43 | P.PNPSI_ITS ---
Subjective Subjective Date of Service: 02/20/21 Reason For Visit: Anxiety Disorder Subjective Notes: Conditional Voluntary Interim History: The nursing staff reported that the patient has been very anxious and she gets static on her own thoughts. The social work specialist reported that she showed extreme anxiety. Yesterday her Zyprexa was increased up to 2.5 p.o. t.i.d.. On interview, the patient was sedated due to Zyprexa. The staff has reported that the patient will benefit of a scheduled lorazepam since she is very anxious. Mental Status Exam Mental Status Exam Patient Appearance: Well Grooomed Patient Orientation: Person Level of Consciousness: Drowsy and Sedated Patient Behavior: Passive and Suspicious Mood Description: Withdrawn Affect Description: Constricted and Anxious Patient Cognition Impaired: No Ability to Follow Directions: Good Speech Pattern: Clear Hallucinations: None Delusions: Paranoid Ideation Thought Process: Illogical and Distracted Thought Content: positive for Poverty of Content Judgement: Fair Diagnostics Vital Signs (24Hr): Vital Signs - 24 hr 02/19/21 18:00 02/19/21 20:58 02/20/21 08:21 Temperature 97.3 F 98.6 F Pulse Rate 93 102 H 90 Respiratory Rate 17 Blood Pressure 104/59 L 154/81 H 179/80 H Pulse Oximetry 93 97 02/20/21 08:45 Temperature 97.5 F Pulse Rate 90 Respiratory Rate Blood Pressure 179/80 H Pulse Oximetry 97 BMI result Body Mass Index 19.5 Labs Results: 02/19/21 15:16 Labs: Laboratory Results - last 48 hr 02/19/21 02/19/21 02/19/21 15:16 16:27 16:27 ESR 20 Sodium 134 L Potassium 4.5 Chloride 104 Carbon Dioxide 24 Anion Gap 11 L BUN 12 Creatinine 0.72 Estim Creat Clear Calc 45.5 Estimated GFR > 60 Random Glucose 131 H Calcium 9.0 D Total Bilirubin < 0.2 AST 15 ALT 17 Alkaline Phosphatase 87 Total Protein 6.1 L Albumin 3.8 Vitamin B12 549 Folate 10.9 T.pallidum Ab (EIA) 02/19/21 16:27 ESR Sodium Potassium Chloride Carbon Dioxide Anion Gap BUN Creatinine Estim Creat Clear Calc Estimated GFR Random Glucose Calcium Total Bilirubin AST ALT Alkaline Phosphatase Total Protein Albumin Vitamin B12 Folate T.pallidum Ab (EIA) Nonreactive Imaging Radiology Impressions: ITS Impressions Head CT 02/19/21 08:57 IMPRESSION: No acute findings. Mild generalized atrophy and nonspecific periventricular white matter disease. 1 cm lucent lesion in the left parietal bone. Brain MRI 02/19/21 17:28 IMPRESSION: 1. No acute intracranial abnormalities. 2. Mild to moderate underlying microangiopathy. 3. Qualitatively, there is moderate generalized cerebral volume loss. Quantitative analysis of the NeuroQuant series will be postprocessed with findings dictated as an addendum. Brain MRI 02/19/21 17:56 IMPRESSION: 1. No acute intracranial abnormalities. 2. Mild to moderate underlying microangiopathy. 3. Qualitatively, there is moderate generalized cerebral volume loss. Quantitative analysis of the NeuroQuant series will be postprocessed with findings dictated as an addendum. Medications Medications Current Medications Acetaminophen (Acetaminophen 325 Mg Tablet) 650 mg PO Q6H PRN PRN Reason: Pain, Mild (Pain Scale 1-3) Al Hydroxide/Mg Hydroxide (Magnesium Hydrox/Alum Hydrox 30 Ml Oral.Susp) 30 ml PO Q6H PRN PRN Reason: Heartburn/Nausea Aspirin (Aspirin 81 Mg Tab.Chew) 81 mg PO DAILY [facility] Last Admin: 02/20/21 08:21 Dose: 81 mg Documented by: Clopidogrel Bisulfate (Clopidogrel Bisulfate 75 Mg Tablet) 75 mg PO DAILY [facility] Last Admin: 02/20/21 08:20 Dose: 75 mg Documented by: Docusate Sodium (Docusate Sodium 100 Mg Capsule) 100 mg PO DAILY PRN PRN Reason: Constipation Ezetimibe (Ezetimibe 10 Mg Tablet) 10 mg PO DAILY [facility] Last Admin: 02/20/21 08:21 Dose: 10 mg Documented by: Enoxaparin Sodium (Enoxaparin Sodium 40 Mg/0.4 Ml Syringe) 40 mg SUBCUT Q24H [facility] Last Admin: 02/19/21 20:26 Dose: 40 mg Documented by: Lorazepam (Lorazepam 0.5 Mg Tablet) 0.5 mg PO Q6H PRN PRN Reason: severe anxiety Last Admin: 02/20/21 08:21 Dose: 0.5 mg Documented by: Losartan Potassium (Losartan Potassium 50 Mg Tablet) 100 mg PO DAILY [facility]; Protocol Last Admin: 02/20/21 08:21 Dose: 100 mg Documented by: Magnesium Hydroxide (Milk Of Magnesia 30 Ml Oral.Susp) 30 ml PO DAILY PRN PRN Reason: Constipation Melatonin (Melatonin 3 Mg Tablet) 3 mg PO BEDTIME PRN PRN Reason: insomnia Last Admin: 02/19/21 22:37 Dose: 3 mg Documented by: Metoprolol Succinate (Metoprolol Succinate Er 25 Mg Tab.Er.24h) 25 mg PO DAILY [facility]; Protocol Last Admin: 02/20/21 08:21 Dose: 25 mg Documented by: Olanzapine (Olanzapine 2.5 Mg Tablet) 2.5 mg PO Q6H PRN PRN Reason: agitation, anxiety Last Admin: 02/18/21 15:58 Dose: 2.5 mg Documented by: Olanzapine (Olanzapine 2.5 Mg Tablet) 2.5 mg PO TID [facility] Last Admin: 02/20/21 14:13 Dose: 2.5 mg Documented by: Pharmacy Consult (Consult Rx Perform Med Rec) 1 each MISCELLANE ONCE PRN PRN Reason: Consult order Timolol Maleate (Timolol Maleate 0.5 % Oph Cathryn 5 Ml Drbtl) 1 drop EYE-RIGHT DAILY [facility] Last Admin: 02/20/21 10:29 Dose: 1 drop Documented by: Trazodone HCl (Trazodone Hcl 50 Mg Tablet) 50 mg PO BEDTIME PRN PRN Reason: Insomnia Allergies Allergies Allergy/AdvReac Type Severity Reaction Status Date / Time melons Allergy Unknown throat Uncoded 08/13/11 00:00 sweling Assessment & Plan Assessment & Plan (1) Syndrome of inappropriate ADH (SIADH) secretion: Status: Resolved Code(s): E22.2 - Syndrome of inappropriate secretion of antidiuretic hormone (2) Moderate malnutrition: Status: Acute Code(s): E44.0 - Moderate protein-calorie malnutrition (3) Delirium due to another medical condition: Status: Acute Code(s): F05 - Delirium due to known physiological condition (4) SHAHIDA (generalized anxiety disorder): Status: Acute Code(s): F41.1 - Generalized anxiety disorder (5) Altered mental status: Status: Resolved Code(s): R41.82 - Altered mental status, unspecified Assessment and Plan: The patient is an elderly female, with over with good social support admitted initially for increased anxiety but later transferred to the medical unit for severe hyponatremia. The patient complains of a survey griffin of depression and anxiety but recently she has perseveration thoughts, disorganized thought process and increased guilt. Plan 1. Gather collateral information. 2. Change Zyprexa to 7.5 mg p.o. q.h.s. but avoid over-sedation during the day 3. Change lorazepam to 0.25 mg p.o. t.i.d. schedule 4. Continue dementia workout. 5. CT scan head without contrast on 02/19 showed atrophy, periventricular white matter changes. MRI head with neuroquant would be more sensitive to detect atrophy especially hippocampus. The MRI did not show any other changes 6. Reassessment with results 7. monitor Na- continue fluid restriccion basic metabolic panel, lipid profile, hemoglobin A1c and other tests were ordered for tomorrow morning I spent minutes with the patient and/or on the patient floor today, greater than?50% of which was spent counseling/coordinating care. Reason for contiued inpatient stay Substantial Risk for: inability to function, rapid decompensation and med/psych decompensation
[2021-02-20 18:00] VITALS: BP 189/83; PULSE 102; RESP 16; TEMP 36.6; O2SAT 97
--- NOTE | 2021-02-20 19:27 | PC.NURSE ---
Skin assessment completed. Patient has a small stage 2 pressure ulcer to her sacrum. Wound cleansed with wound cleanser then Triad applied cover with a foam dressing. No other skin issues noted at this time.
[2021-02-20] MEDS: OLANZapine 2.5 MG TABLET 7.5 MG PO (20:00)
[2021-02-20] MEDS: Melatonin 3 MG TABLET PO (20:01)
[2021-02-20 21:01] VITALS: BP 153/75; PULSE 100; O2SAT 96
[2021-02-21 06:00] VITALS: BP 144/85; PULSE 105; RESP 18; TEMP 36.8; O2SAT 96
[2021-02-21 07:18] LABS: Alanine Aminotransferase 14 U/L (0-31); Albumin Level 3.3 g/dL (3.5-5.0); Alkaline Phosphatase 73 U/L (39-117); Anion Gap 10 (12-20); Aspartate Amino Transferase 14 U/L (5-31); Bilirubin Direct < 0.2 mg/dL (0.0-0.5); Bilirubin Total 0.3 mg/dL (0.0-1.0); Blood Urea Nitrogen 14 mg/dL (9-16); Carbon Dioxide 24 mmol/L (22-29); Chloride 110 mmol/L (96-108); Cholesterol 151 mg/dL; Creatinine Clr Calc Pharmacy 50.3; Estimated Glomerular Filt Rate > 60; Glucose Random 93 mg/dL (60-115); HDL Cholesterol 45 mg/dL; LDL Cholesterol Calculated 83 mg/dl; Potassium 4.5 mmol/L (3.3-5.1); Sodium 139 mmol/L (135-145); Total Protein 5.4 g/dL (6.5-8.0); Triglycerides 116 mg/dL
[2021-02-21 07:25] VITALS: BP 144/85; PULSE 105
[2021-02-21] MEDS: Metoprolol Succinate ER 25 MG TAB.ER.24H PO (07:25)
[2021-02-21] MEDS: Clopidogrel Bisulfate 75 MG TABLET PO (07:25)
[2021-02-21 07:26] VITALS: BP 144/85; PULSE 105
[2021-02-21] MEDS: Losartan Potassium 50 MG TABLET 100 MG PO (07:26)
[2021-02-21] MEDS: Ezetimibe 10 MG TABLET PO (07:27)
[2021-02-21] MEDS: Aspirin 81 MG TAB.CHEW PO (07:27)
[2021-02-21] MEDS: timoloL maleate 0.5 % Oph Sol 5 ML DRBTL 1 DROP EYE-RIGHT (07:28)
[2021-02-21] MEDS: LORazepam 0.5 MG TABLET PO (09:52)
--- NOTE | 2021-02-21 13:55 | P.PNPSI_ITS ---
Subjective Subjective Date of Service: 02/21/21 Reason For Visit: Anxiety Disorder Subjective Notes: Conditional Voluntary Interim History: The nursing staff reported the patient has been anxious, she is hard of hearing and sometimes she does not know what other people are talking. Wound care to care of her lesion on the buttocks. On interview she was with her son and so far she reports that she has been over- sedated. Yesterday we change on her medications only at [facility] Zyprexa 7.5 Mental Status Exam Mental Status Exam Patient Appearance: Well Grooomed Patient Orientation: Person Level of Consciousness: Awake Patient Behavior: Guarded and Passive Mood Description: Depressed Affect Description: Constricted Patient Cognition Impaired: Yes Ability to Follow Directions: Fair Speech Pattern: Clear Hallucinations: None Delusions: Not Present Thought Process: Distracted Thought Content: positive for Circumstantial Judgement: Fair Diagnostics Vital Signs (24Hr): Vital Signs - 24 hr 02/20/21 18:00 02/20/21 21:01 02/21/21 06:00 Temperature 97.9 F 98.3 F Pulse Rate 102 H 100 105 H Respiratory Rate 16 18 Blood Pressure 189/83 H 153/75 H 144/85 H Pulse Oximetry 97 96 96 02/21/21 07:25 02/21/21 07:26 Temperature Pulse Rate 105 H 105 H Respiratory Rate Blood Pressure 144/85 H 144/85 H Pulse Oximetry BMI result Body Mass Index 19.5 Labs Results: 02/21/21 06:51 Labs: Laboratory Results - last 48 hr 02/19/21 02/19/21 02/19/21 15:16 16:27 16:27 ESR 20 Sodium 134 L Potassium 4.5 Chloride 104 Carbon Dioxide 24 Anion Gap 11 L BUN 12 Creatinine 0.72 Estim Creat Clear Calc 45.5 Estimated GFR > 60 Random Glucose 131 H Calcium 9.0 D Total Bilirubin < 0.2 Direct Bilirubin AST 15 ALT 17 Alkaline Phosphatase 87 Total Protein 6.1 L Albumin 3.8 Triglycerides Cholesterol LDL Cholesterol, Calc HDL Cholesterol Vitamin B12 549 Folate 10.9 T.pallidum Ab (EIA) 02/19/21 02/21/21 16:27 06:51 ESR Sodium 139 Potassium 4.5 Chloride 110 H Carbon Dioxide 24 Anion Gap 10 L BUN 14 Creatinine 0.67 Estim Creat Clear Calc 50.3 Estimated GFR > 60 Random Glucose 93 Calcium 9.0 Total Bilirubin 0.3 Direct Bilirubin < 0.2 AST 14 ALT 14 Alkaline Phosphatase 73 Total Protein 5.4 L Albumin 3.3 L Triglycerides 116 Cholesterol 151 LDL Cholesterol, Calc 83 HDL Cholesterol 45 Vitamin B12 Folate T.pallidum Ab (EIA) Nonreactive Imaging Radiology Impressions: ITS Impressions Head CT 02/19/21 08:57 IMPRESSION: No acute findings. Mild generalized atrophy and nonspecific periventricular white matter disease. 1 cm lucent lesion in the left parietal bone. Brain MRI 02/19/21 17:28 IMPRESSION: 1. No acute intracranial abnormalities. 2. Mild to moderate underlying microangiopathy. 3. Qualitatively, there is moderate generalized cerebral volume loss. Quantitative analysis of the NeuroQuant series will be postprocessed with findings dictated as an addendum. Brain MRI 02/19/21 17:56 IMPRESSION: 1. No acute intracranial abnormalities. 2. Mild to moderate underlying microangiopathy. 3. Qualitatively, there is moderate generalized cerebral volume loss. Quantitative analysis of the NeuroQuant series will be postprocessed with findings dictated as an addendum. Medications Medications Current Medications Acetaminophen (Acetaminophen 325 Mg Tablet) 650 mg PO Q6H PRN PRN Reason: Pain, Mild (Pain Scale 1-3) Al Hydroxide/Mg Hydroxide (Magnesium Hydrox/Alum Hydrox 30 Ml Oral.Susp) 30 ml PO Q6H PRN PRN Reason: Heartburn/Nausea Aspirin (Aspirin 81 Mg Tab.Chew) 81 mg PO DAILY [facility] Last Admin: 02/21/21 07:27 Dose: 81 mg Documented by: Clopidogrel Bisulfate (Clopidogrel Bisulfate 75 Mg Tablet) 75 mg PO DAILY [facility] Last Admin: 02/21/21 07:25 Dose: 75 mg Documented by: Docusate Sodium (Docusate Sodium 100 Mg Capsule) 100 mg PO DAILY PRN PRN Reason: Constipation Ezetimibe (Ezetimibe 10 Mg Tablet) 10 mg PO DAILY [facility] Last Admin: 02/21/21 07:27 Dose: 10 mg Documented by: Enoxaparin Sodium (Enoxaparin Sodium 40 Mg/0.4 Ml Syringe) 40 mg SUBCUT Q24H [facility] Last Admin: 02/20/21 21:08 Dose: Not Given Documented by: Lorazepam (Lorazepam 0.5 Mg Tablet) 0.5 mg PO Q6H PRN PRN Reason: severe anxiety Last Admin: 02/21/21 09:52 Dose: 0.5 mg Documented by: Losartan Potassium (Losartan Potassium 50 Mg Tablet) 100 mg PO DAILY [facility]; Protocol Last Admin: 02/21/21 07:26 Dose: 100 mg Documented by: Magnesium Hydroxide (Milk Of Magnesia 30 Ml Oral.Susp) 30 ml PO DAILY PRN PRN Reason: Constipation Melatonin (Melatonin 3 Mg Tablet) 3 mg PO BEDTIME PRN PRN Reason: insomnia Last Admin: 02/20/21 20:01 Dose: 3 mg Documented by: Metoprolol Succinate (Metoprolol Succinate Er 25 Mg Tab.Er.24h) 25 mg PO DAILY [facility]; Protocol Last Admin: 02/21/21 07:25 Dose: 25 mg Documented by: Olanzapine (Olanzapine 2.5 Mg Tablet) 2.5 mg PO Q6H PRN PRN Reason: agitation, anxiety Last Admin: 02/18/21 15:58 Dose: 2.5 mg Documented by: Olanzapine (Olanzapine 2.5 Mg Tablet) 7.5 mg PO BEDTIME [facility] Last Admin: 02/20/21 20:00 Dose: 7.5 mg Documented by: Pharmacy Consult (Consult Rx Perform Med Rec) 1 each MISCELLANE ONCE PRN PRN Reason: Consult order Timolol Maleate (Timolol Maleate 0.5 % Oph Cathryn 5 Ml Drbtl) 1 drop EYE-RIGHT DAILY [facility] Last Admin: 02/21/21 07:28 Dose: 1 drop Documented by: Trazodone HCl (Trazodone Hcl 50 Mg Tablet) 50 mg PO BEDTIME PRN PRN Reason: Insomnia Allergies Allergies Allergy/AdvReac Type Severity Reaction Status Date / Time melons Allergy Unknown throat Uncoded 08/13/11 00:00 sweling Assessment & Plan Assessment & Plan (1) Syndrome of inappropriate ADH (SIADH) secretion: Status: Resolved Code(s): E22.2 - Syndrome of inappropriate secretion of antidiuretic hormone (2) Moderate malnutrition: Status: Acute Code(s): E44.0 - Moderate protein-calorie malnutrition (3) Delirium due to another medical condition: Status: Acute Code(s): F05 - Delirium due to known physiological condition (4) SHAHIDA (generalized anxiety disorder): Status: Acute Code(s): F41.1 - Generalized anxiety disorder (5) Altered mental status: Status: Resolved Code(s): R41.82 - Altered mental status, unspecified Assessment and Plan: The patient is an elderly female, with over with good social support admitted initially for increased anxiety but later transferred to the medical unit for severe hyponatremia. The patient complains of a survey griffin of depression and anxiety but recently she has perseveration thoughts, disorganized thought process and increased guilt. Plan 1. Gather collateral information. 2. Change Zyprexa to 7.5 mg p.o. q.h.s. but avoid over-sedation during the day 3. Change lorazepam to 0.25 mg p.o. t.i.d. schedule 4. Continue dementia workout. 5. CT scan head without contrast on 02/19 showed atrophy, periventricular white matter changes. MRI head with neuroquant would be more sensitive to detect atrophy especially hippocampus. The MRI did not show any other changes 6. Reassessment with results 7. monitor Na- continue fluid restriccion basic metabolic panel, lipid profile, hemoglobin A1c and other tests were ordered for tomorrow morning. So far, her sodium is now 1399. Continue water restriction I spent minutes with the patient and/or on the patient floor today, greater than?50% of which was spent counseling/coordinating care. Reason for contiued inpatient stay Substantial Risk for: inability to function, rapid decompensation and med/psych decompensation
[2021-02-21 14:00] LABS: Estimated Average Glucose 117 mg/dL; Hemoglobin A1c % 5.7 %
[2021-02-21 14:25] VITALS: BMI 19.5
--- NOTE | 2021-02-21 14:27 | MHC.CLN ---
NUTRITION CONSULT DUE TO STAGE II PRESSURE AREA TO SACRUM. DIET=REGULAR WITH 1500 ML FLUID RESTRICTION. PATIENT WITH SIADH WITH MOST RECENT SODIUM WNL. SUPPLEMENT IN PLACE: ENSURE BID TO PROVIDE 700 KCAL, 26 GRAMS PROTEIN.
[2021-02-21] MEDS: LORazepam 0.5 MG TABLET 0.25 MG PO ×2 (14:42→20:15)
[2021-02-21 18:00] VITALS: BP 175/75; PULSE 108; RESP 18; TEMP 36.5; O2SAT 96
[2021-02-21] MEDS: OLANZapine 2.5 MG TABLET 7.5 MG PO (20:12)
[2021-02-22 06:00] VITALS: BP 187/88; PULSE 112; RESP 18; TEMP 36.8; O2SAT 95
[2021-02-22 09:24] VITALS: BP 187/88; PULSE 112
[2021-02-22] MEDS: Losartan Potassium 50 MG TABLET 100 MG PO (09:24)
[2021-02-22] MEDS: Ezetimibe 10 MG TABLET PO (09:24)
[2021-02-22] MEDS: Aspirin 81 MG TAB.CHEW PO (09:24)
[2021-02-22 09:25] VITALS: BP 187/88; PULSE 112
[2021-02-22] MEDS: LORazepam 0.5 MG TABLET 0.25 MG PO ×2 (09:25→20:16)
[2021-02-22] MEDS: Clopidogrel Bisulfate 75 MG TABLET PO (09:25)
[2021-02-22] MEDS: Metoprolol Succinate ER 25 MG TAB.ER.24H PO (09:25)
--- NOTE | 2021-02-22 11:23 | P.PNPSI_ITS ---
Subjective Subjective Date of Service: 02/22/21 Reason For Visit: Anxiety Disorder Subjective Notes: Conditional Voluntary Interim History: Pt visiting with granddaughter. Pt seen at times smiling. She reports feeling anxious at times but appears less perseveration about not telling information to energy attorney. Pt denies SI/HI. Per nursing, visible in the unit, social with select peers. easily becomes anxious when asked direct questions as to how she is doing. Medication Compliance: Yes Side effects from medications: No Mental Status Exam Mental Status Exam Narrative: Appearance: thin, ambulating with walker, casually groomed, fair hygiene in NAD Behavior: anxious, guarded psychomotor:restless Speech:clear, normal rate, soft tone, spontaneous Thought process:repetitive Thought content:thinking she will lose everything because she did not do a will or did not tell energy attorney where she lives, which is not the case per son. Mood: anxious Affect: extremely anxious, hyperventilates at times when reporting she will lose everything SI:none HI:none VH/AH:none Delusions:pt refers to they are taking everything away but can't explain who she is referring to Insight/judgment:impaired x 2. Memory/cog: alert, oriented to year, month, place not situation. Needs moca. Diagnostics Vital Signs (24Hr): Vital Signs - 24 hr 02/23/21 06:00 02/23/21 09:06 02/23/21 09:07 Temperature 97.2 F Pulse Rate 116 H 116 H 116 H Respiratory Rate 15 Blood Pressure 147/67 H 147/67 H 147/67 H Pulse Oximetry 96 02/23/21 18:00 Temperature 96.5 F L Pulse Rate 93 Respiratory Rate 18 Blood Pressure 157/71 H Pulse Oximetry 98 BMI result Body Mass Index 19.5 Labs Results: 02/21/21 06:51 Imaging Radiology Impressions: ITS Impressions Head CT 02/19/21 08:57 IMPRESSION: No acute findings. Mild generalized atrophy and nonspecific periventricular white matter disease. 1 cm lucent lesion in the left parietal bone. Brain MRI 02/19/21 17:28 IMPRESSION: 1. No acute intracranial abnormalities. 2. Mild to moderate underlying microangiopathy. 3. Qualitatively, there is moderate generalized cerebral volume loss. Quantitative analysis of the NeuroQuant series will be postprocessed with findings dictated as an addendum. Brain MRI 02/19/21 17:56 IMPRESSION: 1. No acute intracranial abnormalities. 2. Mild to moderate underlying microangiopathy. 3. Qualitatively, there is moderate generalized cerebral volume loss. Quantitative analysis of the NeuroQuant series will be postprocessed with findings dictated as an addendum. Medications Medications Current Medications Acetaminophen (Acetaminophen 325 Mg Tablet) 650 mg PO Q6H PRN PRN Reason: Pain, Mild (Pain Scale 1-3) Al Hydroxide/Mg Hydroxide (Magnesium Hydrox/Alum Hydrox 30 Ml Oral.Susp) 30 ml PO Q6H PRN PRN Reason: Heartburn/Nausea Aspirin (Aspirin 81 Mg Tab.Chew) 81 mg PO DAILY [facility] Last Admin: 02/23/21 09:07 Dose: 81 mg Documented by: Clopidogrel Bisulfate (Clopidogrel Bisulfate 75 Mg Tablet) 75 mg PO DAILY [facility] Last Admin: 02/23/21 09:06 Dose: 75 mg Documented by: Docusate Sodium (Docusate Sodium 100 Mg Capsule) 100 mg PO DAILY PRN PRN Reason: Constipation Ezetimibe (Ezetimibe 10 Mg Tablet) 10 mg PO DAILY [facility] Last Admin: 02/23/21 09:07 Dose: 10 mg Documented by: Lorazepam (Lorazepam 0.5 Mg Tablet) 0.25 mg PO TID [facility] Last Admin: 02/23/21 20:21 Dose: 0.25 mg Documented by: Losartan Potassium (Losartan Potassium 50 Mg Tablet) 100 mg PO DAILY [facility]; P rotocol Last Admin: 02/23/21 09:06 Dose: 100 mg Documented by: Magnesium Hydroxide (Milk Of Magnesia 30 Ml Oral.Susp) 30 ml PO DAILY PRN PRN Reason: Constipation Melatonin (Melatonin 3 Mg Tablet) 3 mg PO BEDTIME PRN PRN Reason: insomnia Last Admin: 02/20/21 20:01 Dose: 3 mg Documented by: Metoprolol Succinate (Metoprolol Succinate Er 25 Mg Tab.Er.24h) 25 mg PO DAILY [facility]; Protocol Last Admin: 02/23/21 09:07 Dose: 25 mg Documented by: Olanzapine (Olanzapine 2.5 Mg Tablet) 2.5 mg PO Q6H PRN PRN Reason: agitation, anxiety Last Admin: 02/23/21 04:40 Dose: 2.5 mg Documented by: Olanzapine (Olanzapine 2.5 Mg Tablet) 7.5 mg PO BEDTIME [facility] Last Admin: 02/23/21 20:21 Dose: 7.5 mg Documented by: Pharmacy Consult (Consult Rx Perform Med Rec) 1 each MISCELLANE ONCE PRN PRN Reason: Consult order Timolol Maleate (Timolol Maleate 0.5 % Oph Cathryn 5 Ml Drbtl) 1 drop EYE-RIGHT DAILY [facility] Last Admin: 02/23/21 09:11 Dose: 1 drop Documented by: Trazodone HCl (Trazodone Hcl 50 Mg Tablet) 50 mg PO BEDTIME PRN PRN Reason: Insomnia Allergies Allergies Allergy/AdvReac Type Severity Reaction Status Date / Time melons Allergy Unknown throat Uncoded 08/13/11 00:00 sweling Assessment & Plan Assessment & Plan (1) Syndrome of inappropriate ADH (SIADH) secretion: Status: Resolved Code(s): E22.2 - Syndrome of inappropriate secretion of antidiuretic hormone (2) Moderate malnutrition: Status: Acute Code(s): E44.0 - Moderate protein-calorie malnutrition (3) Delirium due to another medical condition: Status: Acute Code(s): F05 - Delirium due to known physiological condition (4) SHAHIDA (generalized anxiety disorder): Status: Acute Code(s): F41.1 - Generalized anxiety disorder (5) Altered mental status: Status: Resolved Code(s): R41.82 - Altered mental status, unspecified Assessment and Plan: The patient is an elderly female, with over with good social support admitted initially for increased anxiety but later transferred to the medical unit for severe hyponatremia. The patient complains of a survey griffin of depression and anxiety but recently she has perseveration thoughts, disorganized thought process and increased guilt. Plan 1. Gather collateral information. 2. Change Zyprexa to 7.5 mg p.o. q.h.s. but avoid over-sedation during the day 3. Change lorazepam to 0.25 mg p.o. t.i.d. schedule 4. Continue dementia workout. 5. CT scan head without contrast on 02/19 showed atrophy, periventricular white matter changes. MRI head with neuroquant would be more sensitive to detect atrophy especially hippocampus. The MRI did not show any other changes 6. Reassessment with results 7. monitor Na- continue fluid restriccion basic metabolic panel, lipid profile, hemoglobin A1c and other tests were ordered for tomorrow morning. So far, her sodium is now 139. Continue water restriction 02/22: visit with granddaughter, slightly less anxious, denies SI/HI. taking medications as prescribed. I spent minutes with the patient and/or on the patient floor today, greater than?50% of which was spent counseling/coordinating care. Reason for contiued inpatient stay Substantial Risk for: inability to function
[2021-02-22 18:00] VITALS: BP 157/72; PULSE 99; RESP 18; TEMP 36.6; O2SAT 96
[2021-02-22] MEDS: OLANZapine 2.5 MG TABLET 7.5 MG PO (20:15)
[2021-02-23] MEDS: OLANZapine 2.5 MG TABLET PO (04:40)
[2021-02-23 06:00] VITALS: BP 147/67; PULSE 116; RESP 15; TEMP 36.2; O2SAT 96
[2021-02-23 09:06] VITALS: BP 147/67; PULSE 116
[2021-02-23] MEDS: Losartan Potassium 50 MG TABLET 100 MG PO (09:06)
[2021-02-23] MEDS: LORazepam 0.5 MG TABLET 0.25 MG PO ×3 (09:06→20:21)
[2021-02-23] MEDS: Clopidogrel Bisulfate 75 MG TABLET PO (09:06)
[2021-02-23 09:07] VITALS: BP 147/67; PULSE 116
[2021-02-23] MEDS: Metoprolol Succinate ER 25 MG TAB.ER.24H PO (09:07)
[2021-02-23] MEDS: Ezetimibe 10 MG TABLET PO (09:07)
[2021-02-23] MEDS: Aspirin 81 MG TAB.CHEW PO (09:07)
[2021-02-23] MEDS: timoloL maleate 0.5 % Oph Sol 5 ML DRBTL 1 DROP EYE-RIGHT (09:11)
--- NOTE | 2021-02-23 12:26 | HO.PSYCHPN ---
Subjective Subjective Date of Service: 02/23/21 Reason For Visit: Anxiety Disorder Subjective Notes: Conditional Voluntary Interim History: Pt up early this morning, had visit from daughter. Pt reports feeling less anxious, pt reports wanting to hear mass on TV. she denies SI/HI. Per nursing, pt slept through the night no behavioral concerns. less perseveration on not having told business attorney about where she lives and this leading to losing everything. No behavioral concerns. Medication Compliance: Yes Side effects from medications: No Mental Status Exam Mental Status Exam Narrative: Appearance: thin, ambulating with walker, casually groomed, fair hygiene in NAD Behavior: anxious, guarded psychomotor:restless Speech:clear, normal rate, soft tone, spontaneous Thought process:repetitive Thought content:thinking she will lose everything because she did not do a will or did not tell business attorney where she lives, which is not the case per son. Mood: anxious Affect: extremely anxious, hyperventilates at times when reporting she will lose everything SI:none HI:none VH/AH:none Delusions:pt refers to they are taking everything away but can't explain who she is referring to Insight/judgment:impaired x 2. Memory/cog: alert, oriented to year, month, place not situation. Needs moca. Diagnostics Vital Signs (24Hr): Vital Signs - 24 hr 02/23/21 06:00 02/23/21 09:06 02/23/21 09:07 Temperature 97.2 F Pulse Rate 116 H 116 H 116 H Respiratory Rate 15 Blood Pressure 147/67 H 147/67 H 147/67 H Pulse Oximetry 96 02/23/21 18:00 Temperature 96.5 F L Pulse Rate 93 Respiratory Rate 18 Blood Pressure 157/71 H Pulse Oximetry 98 BMI result Body Mass Index 19.5 Labs Results: 02/21/21 06:51 Imaging Radiology Impressions: ITS Impressions Head CT 02/19/21 08:57 IMPRESSION: No acute findings. Mild generalized atrophy and nonspecific periventricular white matter disease. 1 cm lucent lesion in the left parietal bone. Brain MRI 02/19/21 17:28 IMPRESSION: 1. No acute intracranial abnormalities. 2. Mild to moderate underlying microangiopathy. 3. Qualitatively, there is moderate generalized cerebral volume loss. Quantitative analysis of the NeuroQuant series will be postprocessed with findings dictated as an addendum. Brain MRI 02/19/21 17:56 IMPRESSION: 1. No acute intracranial abnormalities. 2. Mild to moderate underlying microangiopathy. 3. Qualitatively, there is moderate generalized cerebral volume loss. Quantitative analysis of the NeuroQuant series will be postprocessed with findings dictated as an addendum. Medications Medications Current Medications Acetaminophen (Acetaminophen 325 Mg Tablet) 650 mg PO Q6H PRN PRN Reason: Pain, Mild (Pain Scale 1-3) Al Hydroxide/Mg Hydroxide (Magnesium Hydrox/Alum Hydrox 30 Ml Oral.Susp) 30 ml PO Q6H PRN PRN Reason: Heartburn/Nausea Aspirin (Aspirin 81 Mg Tab.Chew) 81 mg PO DAILY [facility] Last Admin: 02/23/21 09:07 Dose: 81 mg Documented by: Clopidogrel Bisulfate (Clopidogrel Bisulfate 75 Mg Tablet) 75 mg PO DAILY [facility] Last Admin: 02/23/21 09:06 Dose: 75 mg Documented by: Docusate Sodium (Docusate Sodium 100 Mg Capsule) 100 mg PO DAILY PRN PRN Reason: Constipation Ezetimibe (Ezetimibe 10 Mg Tablet) 10 mg PO DAILY [facility] Last Admin: 02/23/21 09:07 Dose: 10 mg Documented by: Lorazepam (Lorazepam 0.5 Mg Tablet) 0.25 mg PO TID [facility] Last Admin: 02/23/21 20:21 Dose: 0.25 mg Documented by: Losartan Potassium (Losartan Potassium 50 Mg Tablet) 100 mg PO DAILY [facility]; Protocol Last Admin: 02/23/21 09:06 Dose: 100 mg Documented by: Magnesium Hydroxide (Milk Of Magnesia 30 Ml Oral.Susp) 30 ml PO DAILY PRN PRN Reason: Constipation Melatonin (Melatonin 3 Mg Tablet) 3 mg PO BEDTIME PRN PRN Reason: insomnia Last Admin: 02/20/21 20:01 Dose: 3 mg Documented by: Metoprolol Succinate (Metoprolol Succinate Er 25 Mg Tab.Er.24h) 25 mg PO DAILY [facility]; Protocol Last Admin: 02/23/21 09:07 Dose: 25 mg Documented by: Olanzapine (Olanzapine 2.5 Mg Tablet) 2.5 mg PO Q6H PRN PRN Reason: agitation, anxiety Last Admin: 02/23/21 04:40 Dose: 2.5 mg Documented by: Olanzapine (Olanzapine 2.5 Mg Tablet) 7.5 mg PO BEDTIME [facility] Last Admin: 02/23/21 20:21 Dose: 7.5 mg Documented by: Pharmacy Consult (Consult Rx Perform Med Rec) 1 each MISCELLANE ONCE PRN PRN Reason: Consult order Timolol Maleate (Timolol Maleate 0.5 % Oph Cathryn 5 Ml Drbtl) 1 drop EYE-RIGHT DAILY [facility] Last Admin: 02/23/21 09:11 Dose: 1 drop Documented by: Trazodone HCl (Trazodone Hcl 50 Mg Tablet) 50 mg PO BEDTIME PRN PRN Reason: Insomnia Allergies Allergies Allergy/AdvReac Type Severity Reaction Status Date / Time melons Allergy Unknown throat Uncoded 08/13/11 00:00 sweling Assessment & Plan Assessment & Plan (1) Syndrome of inappropriate ADH (SIADH) secretion: Status: Resolved Code(s): E22.2 - Syndrome of inappropriate secretion of antidiuretic hormone (2) Moderate malnutrition: Status: Acute Code(s): E44.0 - Moderate protein-calorie malnutrition (3) Delirium due to another medical condition: Status: Acute Code(s): F05 - Delirium due to known physiological condition (4) SHAHIDA (generalized anxiety disorder): Status: Acute Code(s): F41.1 - Generalized anxiety disorder (5) Altered mental status: Status: Resolved Code(s): R41.82 - Altered mental status, unspecified Assessment and Plan: The patient is an elderly female, with over with good social support admitted initially for increased anxiety but later transferred to the medical unit for severe hyponatremia. The patient complains of a survey griffin of depression and anxiety but recently she has perseveration thoughts, disorganized thought process and increased guilt. Plan 1. Gather collateral information. 2. Change Zyprexa to 7.5 mg p.o. q.h.s. but avoid over-sedation during the day 3. Change lorazepam to 0.25 mg p.o. t.i.d. schedule 4. Continue dementia workout. 5. CT scan head without contrast on 02/19 showed atrophy, periventricular white matter changes. MRI head with neuroquant would be more sensitive to detect atrophy especially hippocampus. The MRI did not show any other changes 6. Reassessment with results 7. monitor Na- continue fluid restriccion basic metabolic panel, lipid profile, hemoglobin A1c and other tests were ordered for tomorrow morning. So far, her sodium is now 139. Continue water restriction 02/22: visit with granddaughter, slightly less anxious, denies SI/HI. taking medications as prescribed. 02/23: slightly less anxious, but still becomes easily overwhelmed when talking about events leading to this admission. No medication changes. I spent minutes with the patient and/or on the patient floor today, greater than?50% of which was spent counseling/coordinating care. Reason for contiued inpatient stay Substantial Risk for: inability to function
[2021-02-23 18:00] VITALS: BP 157/71; PULSE 93; RESP 18; TEMP 35.8; O2SAT 98
[2021-02-23] MEDS: OLANZapine 2.5 MG TABLET 7.5 MG PO (20:21)
[2021-02-24 06:00] VITALS: BP 174/87; PULSE 105; TEMP 36; O2SAT 95
[2021-02-24 08:30] VITALS: BP 174/87; PULSE 105
[2021-02-24] MEDS: Ezetimibe 10 MG TABLET PO (08:30)
[2021-02-24] MEDS: Aspirin 81 MG TAB.CHEW PO (08:30)
[2021-02-24] MEDS: Losartan Potassium 50 MG TABLET 100 MG PO (08:30)
[2021-02-24] MEDS: Clopidogrel Bisulfate 75 MG TABLET PO (08:30)
[2021-02-24] MEDS: Metoprolol Succinate ER 25 MG TAB.ER.24H PO (08:30)
[2021-02-24] MEDS: LORazepam 0.5 MG TABLET 0.25 MG PO ×2 (08:30→14:41)
[2021-02-24] MEDS: timoloL maleate 0.5 % Oph Sol 5 ML DRBTL 1 DROP EYE-RIGHT (08:59)
--- NOTE | 2021-02-24 15:29 | MHC.CLN ---
F/U CONTINUES WITH STAGE II PRESSURE AREA TO SACRUM. DIET=REGULAR WITH 1500 ML FLUID RESTRICTION. PATIENT WITH SIADH WITH MOST RECENT SODIUM (02/21) WNL. SUPPLEMENT IN PLACE: ENSURE BID TO PROVIDE 700 KCAL, 26 GRAMS PROTEIN. APPEARS TO BE EATING WELL WITH MANY MEALS 75%.
--- NOTE | 2021-02-24 16:27 | HO.PSYCHPN ---
Subjective Subjective Date of Service: 02/24/21 Reason For Visit: Anxiety Disorder Subjective Notes: Conditional Voluntary Interim History: The nursing staff reports that the patient has stated that she is feeling better, she has attended several groups and she had severe anxiety over her breakfast. The social security benefits interviewer met her and she stated that she does not believe that she belongs here, that she does not have any mental illness. The family reported that she has never stuttered but she had been stuttering recently due to her anxiety. On interview, I explained to the patient that she had SIADH and her sodium level was too low and she was delirous. She agreed to have bloodwork and other labs tomorrow AM. Mental Status Exam Mental Status Exam Patient Appearance: Well Grooomed Patient Orientation: Person Level of Consciousness: Awake Patient Behavior: Cooperative Mood Description: Depressed Affect Description: Anxious Patient Cognition Impaired: Yes Ability to Follow Directions: Good Speech Pattern: Clear Memory Description: Intact Hallucinations: None Delusions: Not Present Thought Process: Evasive Thought Content: positive for Circumstantial Judgement: Fair Diagnostics Vital Signs (24Hr): Vital Signs - 24 hr 02/23/21 18:00 02/24/21 06:00 02/24/21 08:30 Temperature 96.5 F L 96.8 F Pulse Rate 93 105 H 105 H Respiratory Rate 18 Blood Pressure 157/71 H 174/87 H 174/87 H Pulse Oximetry 98 95 BMI result Body Mass Index 19.5 Labs Results: 02/21/21 06:51 Imaging Radiology Impressions: ITS Impressions Head CT 02/19/21 08:57 IMPRESSION: No acute findings. Mild generalized atrophy and nonspecific periventricular white matter disease. 1 cm lucent lesion in the left parietal bone. Brain MRI 02/19/21 17:28 IMPRESSION: 1. No acute intracranial abnormalities. 2. Mild to moderate underlying microangiopathy. 3. Qualitatively, there is moderate generalized cerebral volume loss. Quantitative analysis of the NeuroQuant series will be postprocessed with findings dictated as an addendum. Brain MRI 02/19/21 17:56 IMPRESSION: 1. No acute intracranial abnormalities. 2. Mild to moderate underlying microangiopathy. 3. Qualitatively, there is moderate generalized cerebral volume loss. Quantitative analysis of the NeuroQuant series will be postprocessed with findings dictated as an addendum. Medications Medications Current Medications Acetaminophen (Acetaminophen 325 Mg Tablet) 650 mg PO Q6H PRN PRN Reason: Pain, Mild (Pain Scale 1-3) Al Hydroxide/Mg Hydroxide (Magnesium Hydrox/Alum Hydrox 30 Ml Oral.Susp) 30 ml PO Q6H PRN PRN Reason: Heartburn/Nausea Aspirin (Aspirin 81 Mg Tab.Chew) 81 mg PO DAILY [facility] Last Admin: 02/24/21 08:30 Dose: 81 mg Documented by: Clopidogrel Bisulfate (Clopidogrel Bisulfate 75 Mg Tablet) 75 mg PO DAILY [facility] Last Admin: 02/24/21 08:30 Dose: 75 mg Documented by: Docusate Sodium (Docusate Sodium 100 Mg Capsule) 100 mg PO DAILY PRN PRN Reason: Constipation Ezetimibe (Ezetimibe 10 Mg Tablet) 10 mg PO DAILY [facility] Last Admin: 02/24/21 08:30 Dose: 10 mg Documented by: Lorazepam (Lorazepam 0.5 Mg Tablet) 0.25 mg PO TID [facility] Last Admin: 02/24/21 14:41 Dose: 0.25 mg Documented by: Losartan Potassium (Losartan Potassium 50 Mg Tablet) 100 mg PO DAILY [facility]; Protocol Last Admin: 02/24/21 08:30 Dose: 100 mg Documented by: Magnesium Hydroxide (Milk Of Magnesia 30 Ml Oral.Susp) 30 ml PO DAILY PRN PRN Reason: Constipation Melatonin (Melatonin 3 Mg Tablet) 3 mg PO BEDTIME PRN PRN Reason: insomnia Last Admin: 02/20/21 20:01 Dose: 3 mg Documented by: Metoprolol Succinate (Metoprolol Succinate Er 25 Mg Tab.Er.24h) 25 mg PO DAILY [facility]; Protocol Last Admin: 02/24/21 08:30 Dose: 25 mg Documented by: Patient Own Med ( Fish Oil 1200mg Caps ) 2 each PO DAILY [facility] Last Admin: 02/24/21 12:28 Dose: 2 each Documented by: Olanzapine (Olanzapine 2.5 Mg Tablet) 2.5 mg PO Q6H PRN PRN Reason: agitation, anxiety Last Admin: 02/23/21 04:40 Dose: 2.5 mg Documented by: Olanzapine (Olanzapine 2.5 Mg Tablet) 7.5 mg PO BEDTIME [facility] Last Admin: 02/23/21 20:21 Dose: 7.5 mg Documented by: Pharmacy Consult (Consult Rx Perform Med Rec) 1 each MISCELLANE ONCE PRN PRN Reason: Consult order Timolol Maleate (Timolol Maleate 0.5 % Oph Cathryn 5 Ml Drbtl) 1 drop EYE-RIGHT DAILY [facility] Last Admin: 02/24/21 08:59 Dose: 1 drop Documented by: Trazodone HCl (Trazodone Hcl 50 Mg Tablet) 50 mg PO BEDTIME PRN PRN Reason: Insomnia Allergies Allergies Allergy/AdvReac Type Severity Reaction Status Date / Time melons Allergy Unknown throat Uncoded 08/13/11 00:00 sweling Assessment & Plan Assessment & Plan (1) Syndrome of inappropriate ADH (SIADH) secretion: Status: Resolved Code(s): E22.2 - Syndrome of inappropriate secretion of antidiuretic hormone (2) Moderate malnutrition: Status: Acute Code(s): E44.0 - Moderate protein-calorie malnutrition (3) Delirium due to another medical condition: Status: Acute Code(s): F05 - Delirium due to known physiological condition (4) SHAHIDA (generalized anxiety disorder): Status: Acute Code(s): F41.1 - Generalized anxiety disorder (5) Altered mental status: Status: Resolved Code(s): R41.82 - Altered mental status, unspecified Assessment and Plan: The patient is an elderly female, with over with good social support admitted initially for increased anxiety but later transferred to the medical unit for severe hyponatremia. The patient complains of a survey griffin of depression and anxiety but recently she has perseveration thoughts, disorganized thought process and increased guilt. Plan 1. Continue same medication, keep Zyprexa 7.5 mg p.o. q.h.s. 2. Start Klonopin 0.25 mg p.o. t.i.d. 3. Start Remeron 7.5 mg p.o. q.h.s. to target depression and anxiety. 4. Basic metabolic panel, sodium a urea, urine osmolality and other labs ordered for tomorrow morning I spent minutes with the patient and/or on the patient floor today, greater than?50% of which was spent counseling/coordinating care. Reason for contiued inpatient stay Substantial Risk for: inability to function, rapid decompensation and med/psych decompensation
[2021-02-24 20:00] VITALS: BP 174/80; PULSE 101; RESP 18; TEMP 36.9; O2SAT 98
[2021-02-24] MEDS: Mirtazapine 7.5 MG TABLET PO (20:21)
[2021-02-24] MEDS: clonazePAM 0.5 MG TABLET 0.25 MG PO (20:21)
[2021-02-24] MEDS: OLANZapine 5 MG TABLET PO (20:21)
[2021-02-25 04:37] LABS: Appearance Urine CLEAR; Color Urine YELLOW; Glucose Urine UA NEG (NEG); Leukocyte Esterase Urine TRACE (NEG); Nitrite Urine NEG (NEG); Specific Gravity - Urine 1.015 (1.005-1.025); Urine Blood NEG (NEG); Urine Ketones NEG (NEG); Urine Protein NEG (NEG-TRACE)
[2021-02-25 04:42] LABS: Bacteria Urine TRACE /LPF; RBC Urine 0 /HPF (0); Squamous Epithelial Cell Urine 1+ /LPF
[2021-02-25 04:43] LABS: Mucus Urine 2+ /LPF
[2021-02-25 04:47] LABS: Osmolality Urine 580 mosm/kg (373-1093)
[2021-02-25 06:00] VITALS: BP 192/93; PULSE 105; RESP 20; TEMP 36.6; O2SAT 92
[2021-02-25 07:15] LABS: Anion Gap 13 (12-20); Blood Urea Nitrogen 13 mg/dL (9-16); Calcium 9.4 mg/dL (8.4-10.2); Carbon Dioxide 24 mmol/L (22-29); Chloride 106 mmol/L (96-108); Creatinine Clr Calc Pharmacy 50.3; Estimated Glomerular Filt Rate > 60; Glucose Random 97 mg/dL (60-115); Potassium 4.3 mmol/L (3.3-5.1); Sodium 139 mmol/L (135-145)
[2021-02-25] MEDS: clonazePAM 0.5 MG TABLET 0.25 MG PO ×3 (07:47→20:41)
[2021-02-25] MEDS: Ezetimibe 10 MG TABLET PO (07:48)
[2021-02-25 07:49] VITALS: BP 192/93; PULSE 105
[2021-02-25] MEDS: Losartan Potassium 50 MG TABLET 100 MG PO (07:49)
[2021-02-25 07:50] VITALS: BP 192/93; PULSE 105
[2021-02-25] MEDS: Metoprolol Succinate ER 25 MG TAB.ER.24H PO (07:50)
[2021-02-25] MEDS: Aspirin 81 MG TAB.CHEW PO (07:51)
[2021-02-25] MEDS: timoloL maleate 0.5 % Oph Sol 5 ML DRBTL 1 DROP EYE-RIGHT (07:52)
[2021-02-25] MEDS: Clopidogrel Bisulfate 75 MG TABLET PO (07:52)
--- NOTE | 2021-02-25 14:41 | PC.NURSE ---
No stutter or psychomotor agitation noted this shift. Speech is clear and appropriate. Endorses anxiety, but is able to focus on tasks.
--- NOTE | 2021-02-25 15:02 | P.PNPSI_ITS ---
Subjective Subjective Date of Service: 02/25/21 Reason For Visit: Anxiety Disorder Subjective Notes: Conditional Voluntary Interim History: the nursing staff reported that the patient has being cooperative and pleasant, she looks more organized and less confused. On interview, I explained her that she had a very low sodium and that is why she was confused and delirious. She states that she is feeling much better less anxious with the addition of Klonopin and other medications. We discussed the case with hospitalist team and they checked her sodium level and urine osmolarity and so far it is back to normal so fluid restriction can be discontinue. The social media content specialist reported that we will have a family meeting tomorrow morning. Mental Status Exam Mental Status Exam Patient Appearance: Well Grooomed Patient Orientation: Person Level of Consciousness: Awake Patient Behavior: Cooperative Mood Description: Withdrawn and Constricted Affect Description: Constricted Patient Cognition Impaired: No Ability to Follow Directions: Good Speech Pattern: Clear Hallucinations: None Delusions: Not Present Thought Process: Distracted and Linear Thought Content: positive for Circumstantial Judgement: Fair Diagnostics Vital Signs (24Hr): Vital Signs - 24 hr 02/24/21 20:00 02/25/21 06:00 02/25/21 07:49 Temperature 98.4 F 98 F Pulse Rate 101 H 105 H 105 H Respiratory Rate 18 20 Blood Pressure 174/80 H 192/93 H 192/93 H Pulse Oximetry 98 92 02/25/21 07:50 Temperature Pulse Rate 105 H Respiratory Rate Blood Pressure 192/93 H Pulse Oximetry BMI result Body Mass Index 19.5 Labs Results: 02/25/21 06:39 Labs: Laboratory Results - last 48 hr 02/25/21 02/25/21 02/25/21 04:15 04:15 04:15 Sodium Potassium Chloride Carbon Dioxide Anion Gap BUN Creatinine Estim Creat Clear Calc Estimated GFR Random Glucose Calcium Urine Color YELLOW Urine Appearance CLEAR Urine pH 7.0 Ur Specific [place] 1.015 Urine Protein NEG Urine Glucose (UA) NEG Urine Ketones NEG Urine Blood NEG Urine Nitrite NEG Ur Leukocyte Esterase TRACE H Urine RBC 0 Urine WBC 10-14 H Ur Squamous Epith Cells 1+ Urine Bacteria TRACE Urine Mucus 2+ Urine Osmolality 580 Ur Random Sodium 100.0 02/25/21 06:39 Sodium 139 Potassium 4.3 Chloride 106 Carbon Dioxide 24 Anion Gap 13 BUN 13 Creatinine 0.67 Estim Creat Clear Calc 50.3 Estimated GFR > 60 Random Glucose 97 Calcium 9.4 Urine Color Urine Appearance Urine pH Ur Specific [place] Urine Protein Urine Glucose (UA) Urine Ketones Urine Blood Urine Nitrite Ur Leukocyte Esterase Urine RBC Urine WBC Ur Squamous Epith Cells Urine Bacteria Urine Mucus Urine Osmolality Ur Random Sodium Imaging Radiology Impressions: ITS Impressions Head CT 02/19/21 08:57 IMPRESSION: No acute findings. Mild generalized atrophy and nonspecific periventricular white matter disease. 1 cm lucent lesion in the left parietal bone. Brain MRI 02/19/21 17:28 IMPRESSION: 1. No acute intracranial abnormalities. 2. Mild to moderate underlying microangiopathy. 3. Qualitatively, there is moderate generalized cerebral volume loss. Quantitative analysis of the NeuroQuant series will be postprocessed with findings dictated as an addendum. Brain MRI 02/19/21 17:56 IMPRESSION: 1. No acute intracranial abnormalities. 2. Mild to moderate underlying microangiopathy. 3. Qualitatively, there is moderate generalized cerebral volume loss. Quantitative analysis of the NeuroQuant series will be postprocessed with findings dictated as an addendum. Medications Medications Current Medications Acetaminophen (Acetaminophen 325 Mg Tablet) 650 mg PO Q6H PRN PRN Reason: Pain, Mild (Pain Scale 1-3) Al Hydroxide/Mg Hydroxide (Magnesium Hydrox/Alum Hydrox 30 Ml Oral.Susp) 30 ml PO Q6H PRN PRN Reason: Heartburn/Nausea Aspirin (Aspirin 81 Mg Tab.Chew) 81 mg PO DAILY [facility] Last Admin: 02/25/21 07:51 Dose: 81 mg Documented by: Clonazepam (Clonazepam 0.5 Mg Tablet) 0.25 mg PO TID [facility] Last Admin: 02/25/21 07:47 Dose: 0.25 mg Documented by: Clopidogrel Bisulfate (Clopidogrel Bisulfate 75 Mg Tablet) 75 mg PO DAILY [facility] Last Admin: 02/25/21 07:52 Dose: 75 mg Documented by: Docusate Sodium (Docusate Sodium 100 Mg Capsule) 100 mg PO DAILY PRN PRN Reason: Constipation Ezetimibe (Ezetimibe 10 Mg Tablet) 10 mg PO DAILY [facility] Last Admin: 02/25/21 07:48 Dose: 10 mg Documented by: Lisinopril (Lisinopril 5 Mg Tablet) 5 mg PO DAILY [facility]; Protocol Losartan Potassium (Losartan Potassium 50 Mg Tablet) 100 mg PO DAILY [facility]; Protocol Last Admin: 02/25/21 07:49 Dose: 100 mg Documented by: Magnesium Hydroxide (Milk Of Magnesia 30 Ml Oral.Susp) 30 ml PO DAILY PRN PRN Reason: Constipation Melatonin (Melatonin 3 Mg Tablet) 3 mg PO BEDTIME PRN PRN Reason: insomnia Last Admin: 02/20/21 20:01 Dose: 3 mg Documented by: Metoprolol Succinate (Metoprolol Succinate Er 25 Mg Tab.Er.24h) 25 mg PO DAILY [facility]; Protocol Last Admin: 02/25/21 07:50 Dose: 25 mg Documented by: Mirtazapine (Mirtazapine 7.5 Mg Tablet) 7.5 mg PO BEDTIME [facility] Last Admin: 02/24/21 20:21 Dose: 7.5 mg Documented by: Patient Own Med ( Fish Oil 1200mg Caps ) 2 each PO DAILY [facility] Last Admin: 02/25/21 07:48 Dose: 2 each Documented by: Olanzapine (Olanzapine 2.5 Mg Tablet) 2.5 mg PO Q6H PRN PRN Reason: agitation, anxiety Last Admin: 02/23/21 04:40 Dose: 2.5 mg Documented by: Olanzapine (Olanzapine 5 Mg Tablet) 5 mg PO BEDTIME [facility] Last Admin: 02/24/21 20:21 Dose: 5 mg Documented by: Pharmacy Consult (Consult Rx Perform Med Rec) 1 each MISCELLANE ONCE PRN PRN Reason: Consult order Timolol Maleate (Timolol Maleate 0.5 % Oph Cathryn 5 Ml Drbtl) 1 drop EYE-RIGHT DAILY [facility] Last Admin: 02/25/21 07:52 Dose: 1 drop Documented by: Trazodone HCl (Trazodone Hcl 50 Mg Tablet) 50 mg PO BEDTIME PRN PRN Reason: Insomnia Allergies Allergies Allergy/AdvReac Type Severity Reaction Status Date / Time melons Allergy Unknown throat Uncoded 08/13/11 00:00 sweling Assessment & Plan Assessment & Plan (1) Syndrome of inappropriate ADH (SIADH) secretion: Status: Resolved Code(s): E22.2 - Syndrome of inappropriate secretion of antidiuretic hormone (2) Moderate malnutrition: Status: Acute Code(s): E44.0 - Moderate protein-calorie malnutrition (3) Delirium due to another medical condition: Status: Acute Code(s): F05 - Delirium due to known physiological condition (4) SHAHIDA (generalized anxiety disorder): Status: Acute Code(s): F41.1 - Generalized anxiety disorder (5) Altered mental status: Status: Resolved Code(s): R41.82 - Altered mental status, unspecified Assessment and Plan: The patient is an elderly female, with over with good social support admitted initially for increased anxiety but later transferred to the medical unit for severe hyponatremia. The patient complains of a survey griffin of depression and anxiety but recently she has perseveration thoughts, disorganized thought process and increased guilt. Plan 1. Continue same medication, keep Zyprexa 7.5 mg p.o. q.h.s. 2. Keep Klonopin 0.25 mg p.o. t.i.d. 3. Keep Remeron 7.5 mg p.o. q.h.s. to target depression and anxiety. 4. Basic metabolic panel, sodium a urea, urine osmolality and other labs came back normal with no evidence of SIADH I spent minutes with the patient and/or on the patient floor today, greater than?50% of which was spent counseling/coordinating care. Reason for contiued inpatient stay Substantial Risk for: inability to function, rapid decompensation and med/psych decompensation
[2021-02-25] MEDS: Mirtazapine 7.5 MG TABLET PO (20:41)
[2021-02-25] MEDS: OLANZapine 5 MG TABLET PO (20:41)
[2021-02-25 20:52] VITALS: BP 156/70; PULSE 99; RESP 18; TEMP 36.9; O2SAT 97
[2021-02-26 08:00] VITALS: BP 172/78; PULSE 109; RESP 20; TEMP 36.6; O2SAT 97
[2021-02-26 08:15] VITALS: BP 172/78; PULSE 109
[2021-02-26] MEDS: timoloL maleate 0.5 % Oph Sol 5 ML DRBTL 1 DROP EYE-RIGHT (08:15)
[2021-02-26] MEDS: Aspirin 81 MG TAB.CHEW PO (08:15)
[2021-02-26] MEDS: Losartan Potassium 50 MG TABLET 100 MG PO (08:15)
[2021-02-26] MEDS: Ezetimibe 10 MG TABLET PO (08:15)
[2021-02-26 08:16] VITALS: BP 172/78; PULSE 109
[2021-02-26] MEDS: lisinopriL 5 MG TABLET PO (08:16)
[2021-02-26] MEDS: Metoprolol Succinate ER 25 MG TAB.ER.24H PO (08:16)
[2021-02-26] MEDS: Clopidogrel Bisulfate 75 MG TABLET PO (08:16)
[2021-02-26] MEDS: clonazePAM 0.5 MG TABLET 0.25 MG PO ×3 (08:17→20:01)
--- NOTE | 2021-02-26 13:15 | MHC.CLN ---
F/U CONTINUES WITH STAGE II PRESSURE AREA TO SACRUM. DIET=REGULAR WITH 1500 ML FLUID RESTRICTION. PATIENT WITH SIADH WITH MOST RECENT SODIUM (02/25) WNL. SUPPLEMENT IN PLACE: ENSURE BID TO PROVIDE 700 KCAL, 26 GRAMS PROTEIN. REPORTED THAT SOME FOODS ARE DRY AND DISLIKES GRAVY. PATIENT CONTINUES ON FLUID RESTRICTION. STATED THAT LIKES SANDWICHES AND ENCOURAGED PATIENT TO SELECT FOODS THAT SHE LIKES.
--- NOTE | 2021-02-26 15:58 | HO.PSYCHPN ---
Subjective Subjective Date of Service: 02/26/21 Reason For Visit: Anxiety Disorder Subjective Notes: Conditional Voluntary Interim History: The nursing staff reported the patient's mood was much better yesterday, she was cooperative and pleasant less anxious. She was able to take care of herself and she attended a few groups. Today we had a family meeting that she was very tearful and sad, disorganized and perseverative regarding her obsessive thoughts about not signing her will and she could lose her property in [place]. Her children reassured that that will not happen but the patient was very confused. We discussed with the family about the medical problems that she had and the resolution of that but her mood symptoms are still present. We discussed risks, benefits and side effects and they agreed to continue the same treatment. Mental Status Exam Mental Status Exam Patient Appearance: Well Grooomed Patient Orientation: Person Level of Consciousness: Awake and Restless Patient Behavior: Guarded, Passive and Suspicious Mood Description: Depressed Affect Description: Constricted, Anxious and Apprehensive Ability to Follow Directions: Good Speech Pattern: Clear Hallucinations: None Delusions: Paranoid Ideation Thought Process: Racing, Illogical, Distracted and Evasive Thought Content: positive for Circumstantial, positive for Perseveration and positive for Loose Associations Judgement: Fair Diagnostics Vital Signs (24Hr): Vital Signs - 24 hr 02/25/21 20:52 02/26/21 08:00 02/26/21 08:15 Temperature 98.4 F 97.8 F Pulse Rate 99 109 H 109 H Respiratory Rate 18 20 Blood Pressure 156/70 H 172/78 H 172/78 H Pulse Oximetry 97 97 02/26/21 08:16 Temperature Pulse Rate 109 H Respiratory Rate Blood Pressure 172/78 H Pulse Oximetry BMI result Body Mass Index 19.5 Labs Results: 02/25/21 06:39 Labs: Laboratory Results - last 48 hr 02/25/21 02/25/21 02/25/21 04:15 04:15 04:15 Sodium Potassium Chloride Carbon Dioxide Anion Gap BUN Creatinine Estim Creat Clear Calc Estimated GFR Random Glucose Calcium Urine Color YELLOW Urine Appearance CLEAR Urine pH 7.0 Ur Specific [place] 1.015 Urine Protein NEG Urine Glucose (UA) NEG Urine Ketones NEG Urine Blood NEG Urine Nitrite NEG Ur Leukocyte Esterase TRACE H Urine RBC 0 Urine WBC 10-14 H Ur Squamous Epith Cells 1+ Urine Bacteria TRACE Urine Mucus 2+ Urine Osmolality 580 Ur Random Sodium 100.0 02/25/21 06:39 Sodium 139 Potassium 4.3 Chloride 106 Carbon Dioxide 24 Anion Gap 13 BUN 13 Creatinine 0.67 Estim Creat Clear Calc 50.3 Estimated GFR > 60 Random Glucose 97 Calcium 9.4 Urine Color Urine Appearance Urine pH Ur Specific [place] Urine Protein Urine Glucose (UA) Urine Ketones Urine Blood Urine Nitrite Ur Leukocyte Esterase Urine RBC Urine WBC Ur Squamous Epith Cells Urine Bacteria Urine Mucus Urine Osmolality Ur Random Sodium Imaging Radiology Impressions: ITS Impressions Head CT 02/19/21 08:57 IMPRESSION: No acute findings. Mild generalized atrophy and nonspecific periventricular white matter disease. 1 cm lucent lesion in the left parietal bone. Brain MRI 02/19/21 17:28 IMPRESSION: 1. No acute intracranial abnormalities. 2. Mild to moderate underlying microangiopathy. 3. Qualitatively, there is moderate generalized cerebral volume loss. Quantitative analysis of the NeuroQuant series will be postprocessed with findings dictated as an addendum. Brain MRI 02/19/21 17:56 IMPRESSION: 1. No acute intracranial abnormalities. 2. Mild to moderate underlying microangiopathy. 3. Qualitatively, there is moderate generalized cerebral volume loss. Quantitative analysis of the NeuroQuant series will be postprocessed with findings dictated as an addendum. Medications Medications Current Medications Acetaminophen (Acetaminophen 325 Mg Tablet) 650 mg PO Q6H PRN PRN Reason: Pain, Mild (Pain Scale 1-3) Al Hydroxide/Mg Hydroxide (Magnesium Hydrox/Alum Hydrox 30 Ml Oral.Susp) 30 ml PO Q6H PRN PRN Reason: Heartburn/Nausea Aspirin (Aspirin 81 Mg Tab.Chew) 81 mg PO DAILY [facility] Last Admin: 02/26/21 08:15 Dose: 81 mg Documented by: Clonazepam (Clonazepam 0.5 Mg Tablet) 0.25 mg PO TID [facility] Last Admin: 02/26/21 15:41 Dose: 0.25 mg Documented by: Clopidogrel Bisulfate (Clopidogrel Bisulfate 75 Mg Tablet) 75 mg PO DAILY [facility] Last Admin: 02/26/21 08:16 Dose: 75 mg Documented by: Docusate Sodium (Docusate Sodium 100 Mg Capsule) 100 mg PO DAILY PRN PRN Reason: Constipation Ezetimibe (Ezetimibe 10 Mg Tablet) 10 mg PO DAILY [facility] Last Admin: 02/26/21 08:15 Dose: 10 mg Documented by: Lisinopril (Lisinopril 5 Mg Tablet) 5 mg PO DAILY [facility]; Protocol Last Admin: 02/26/21 08:16 Dose: 5 mg Documented by: Losartan Potassium (Losartan Potassium 50 Mg Tablet) 100 mg PO DAILY [facility]; Protocol Last Admin: 02/26/21 08:15 Dose: 100 mg Documented by: Magnesium Hydroxide (Milk Of Magnesia 30 Ml Oral.Susp) 30 ml PO DAILY PRN PRN Reason: Constipation Melatonin (Melatonin 3 Mg Tablet) 3 mg PO BEDTIME PRN PRN Reason: insomnia Last Admin: 02/20/21 20:01 Dose: 3 mg Documented by: Metoprolol Succinate (Metoprolol Succinate Er 25 Mg Tab.Er.24h) 25 mg PO DAILY [facility]; Protocol Last Admin: 02/26/21 08:16 Dose: 25 mg Documented by: Mirtazapine (Mirtazapine 7.5 Mg Tablet) 7.5 mg PO BEDTIME [facility] Last Admin: 02/25/21 20:41 Dose: 7.5 mg Documented by: Patient Own Med ( Fish Oil 1200mg Caps ) 2 each PO DAILY [facility] Last Admin: 02/26/21 08:15 Dose: 2 each Documented by: Olanzapine (Olanzapine 2.5 Mg Tablet) 2.5 mg PO Q6H PRN PRN Reason: agitation, anxiety Last Admin: 02/23/21 04:40 Dose: 2.5 mg Documented by: Olanzapine (Olanzapine 5 Mg Tablet) 5 mg PO BEDTIME [facility] Last Admin: 02/25/21 20:41 Dose: 5 mg Documented by: Pharmacy Consult (Consult Rx Perform Med Rec) 1 each MISCELLANE ONCE PRN PRN Reason: Consult order Timolol Maleate (Timolol Maleate 0.5 % Oph Cathryn 5 Ml Drbtl) 1 drop EYE-RIGHT DAILY [facility] Last Admin: 02/26/21 08:15 Dose: 1 drop Documented by: Trazodone HCl (Trazodone Hcl 50 Mg Tablet) 50 mg PO BEDTIME PRN PRN Reason: Insomnia Allergies Allergies Allergy/AdvReac Type Severity Reaction Status Date / Time melons Allergy Unknown throat Uncoded 08/13/11 00:00 sweling Assessment & Plan Assessment & Plan (1) Syndrome of inappropriate ADH (SIADH) secretion: Status: Resolved Code(s): E22.2 - Syndrome of inappropriate secretion of antidiuretic hormone (2) Moderate malnutrition: Status: Acute Code(s): E44.0 - Moderate protein-calorie malnutrition (3) Delirium due to another medical condition: Status: Acute Code(s): F05 - Delirium due to known physiological condition (4) SHAHIDA (generalized anxiety disorder): Status: Acute Code(s): F41.1 - Generalized anxiety disorder (5) Altered mental status: Status: Resolved Code(s): R41.82 - Altered mental status, unspecified Assessment and Plan: The patient is an elderly female, with over with good social support admitted initially for increased anxiety but later transferred to the medical unit for severe hyponatremia. The patient complains of a survey griffin of depression and anxiety but recently she has perseveration thoughts, disorganized thought process and increased guilt. Plan 1. Continue same medication, keep Zyprexa 7.5 mg p.o. q.h.s. 2. Keep Klonopin 0.25 mg p.o. t.i.d. 3. Keep Remeron 7.5 mg p.o. q.h.s. to target depression and anxiety. 4. Basic metabolic panel, sodium a urea, urine osmolality and other labs came back normal with no evidence of SIADH I spent minutes with the patient and/or on the patient floor today, greater than?50% of which was spent counseling/coordinating care. Reason for contiued inpatient stay Substantial Risk for: inability to function, rapid decompensation and med/psych decompensation
[2021-02-26] MEDS: Mirtazapine 7.5 MG TABLET PO (20:01)
[2021-02-26] MEDS: OLANZapine 5 MG TABLET PO (20:01)
[2021-02-26 20:28] VITALS: BP 163/70; PULSE 92; RESP 16; TEMP 36.7; O2SAT 98
[2021-02-26] MEDS: Acetaminophen 325 MG TABLET 650 MG PO (20:37)
[2021-02-27 06:00] VITALS: BP 149/65; PULSE 94; RESP 16; TEMP 36.3; O2SAT 98
[2021-02-27 09:55] VITALS: BP 149/65; PULSE 94
[2021-02-27] MEDS: lisinopriL 5 MG TABLET PO (09:55)
[2021-02-27] MEDS: Clopidogrel Bisulfate 75 MG TABLET PO (09:55)
[2021-02-27 09:57] VITALS: BP 149/65; PULSE 94
[2021-02-27] MEDS: clonazePAM 0.5 MG TABLET 0.25 MG PO ×2 (09:57→14:21)
[2021-02-27] MEDS: Aspirin 81 MG TAB.CHEW PO (09:57)
[2021-02-27] MEDS: Ezetimibe 10 MG TABLET PO (09:57)
[2021-02-27] MEDS: Metoprolol Succinate ER 25 MG TAB.ER.24H PO (09:57)
[2021-02-27 10:02] VITALS: BP 149/65; PULSE 94
[2021-02-27] MEDS: Losartan Potassium 50 MG TABLET 100 MG PO (10:02)
[2021-02-27] MEDS: timoloL maleate 0.5 % Oph Sol 5 ML DRBTL 1 DROP EYE-RIGHT (10:04)
--- NOTE | 2021-02-27 15:02 | HO.PSYCHPN ---
Subjective Subjective Date of Service: 02/27/21 Reason For Visit: Anxiety Disorder Subjective Notes: Conditional Voluntary Interim History: The nursing staff reported the patient has been anxious, emotional at times. She cannot hear very well but she has an appointment with ENT for the proper treatment. On interview, the patient remains anxious and she wants to be discharged as soon as possible. She is perseverative with ADLs that she could lose her property in [place] the sings she did have her will properly done. Mental Status Exam Mental Status Exam Patient Appearance: Well Grooomed Patient Orientation: Person Level of Consciousness: Awake Patient Behavior: Cooperative Mood Description: Depressed Affect Description: Constricted Ability to Follow Directions: Fair Speech Pattern: Clear Hallucinations: None Delusions: Paranoid Ideation Thought Process: Distracted and Evasive Thought Content: positive for Perseveration, positive for Loose Associations and positive for Thought Blocking Judgement: Fair Diagnostics Vital Signs (24Hr): Vital Signs - 24 hr 02/26/21 20:28 02/27/21 06:00 02/27/21 09:55 Temperature 98.1 F 97.3 F Pulse Rate 92 94 94 Respiratory Rate 16 16 Blood Pressure 163/70 H 149/65 H 149/65 H Pulse Oximetry 98 98 02/27/21 09:57 02/27/21 10:02 Temperature Pulse Rate 94 94 Respiratory Rate Blood Pressure 149/65 H 149/65 H Pulse Oximetry BMI result Body Mass Index 20.0 Labs Results: 02/25/21 06:39 Imaging Radiology Impressions: ITS Impressions Head CT 02/19/21 08:57 IMPRESSION: No acute findings. Mild generalized atrophy and nonspecific periventricular white matter disease. 1 cm lucent lesion in the left parietal bone. Brain MRI 02/19/21 17:28 IMPRESSION: 1. No acute intracranial abnormalities. 2. Mild to moderate underlying microangiopathy. 3. Qualitatively, there is moderate generalized cerebral volume loss. Quantitative analysis of the NeuroQuant series will be postprocessed with findings dictated as an addendum. Brain MRI 02/19/21 17:56 IMPRESSION: 1. No acute intracranial abnormalities. 2. Mild to moderate underlying microangiopathy. 3. Qualitatively, there is moderate generalized cerebral volume loss. Quantitative analysis of the NeuroQuant series will be postprocessed with findings dictated as an addendum. Medications Medications Current Medications Acetaminophen (Acetaminophen 325 Mg Tablet) 650 mg PO Q6H PRN PRN Reason: Pain, Mild (Pain Scale 1-3) Last Admin: 02/26/21 20:37 Dose: 650 mg Documented by: Al Hydroxide/Mg Hydroxide (Magnesium Hydrox/Alum Hydrox 30 Ml Oral.Susp) 30 ml PO Q6H PRN PRN Reason: Heartburn/Nausea Aspirin (Aspirin 81 Mg Tab.Chew) 81 mg PO DAILY [facility] Last Admin: 02/27/21 09:57 Dose: 81 mg Documented by: Clonazepam (Clonazepam 0.5 Mg Tablet) 0.25 mg PO TID [facility] Last Admin: 02/27/21 14:21 Dose: 0.25 mg Documented by: Clopidogrel Bisulfate (Clopidogrel Bisulfate 75 Mg Tablet) 75 mg PO DAILY [facility] Last Admin: 02/27/21 09:55 Dose: 75 mg Documented by: Docusate Sodium (Docusate Sodium 100 Mg Capsule) 100 mg PO DAILY PRN PRN Reason: Constipation Ezetimibe (Ezetimibe 10 Mg Tablet) 10 mg PO DAILY [facility] Last Admin: 02/27/21 09:57 Dose: 10 mg Documented by: Ibuprofen (Ibuprofen 600 Mg Tablet) 600 mg PO Q8H PRN PRN Reason: Pain, Moderate (Pain Scale 4-6 Lisinopril (Lisinopril 5 Mg Tablet) 5 mg PO DAILY [facility]; Protocol Last Admin: 02/27/21 09:55 Dose: 5 mg Documented by: Losartan Potassium (Losartan Potassium 50 Mg Tablet) 100 mg PO DAILY [facility]; Protocol Last Admin: 02/27/21 10:02 Dose: 100 mg Documented by: Magnesium Hydroxide (Milk Of Magnesia 30 Ml Oral.Susp) 30 ml PO DAILY PRN PRN Reason: Constipation Melatonin (Melatonin 3 Mg Tablet) 3 mg PO BEDTIME PRN PRN Reason: insomnia Last Admin: 02/20/21 20:01 Dose: 3 mg Documented by: Metoprolol Succinate (Metoprolol Succinate Er 25 Mg Tab.Er.24h) 25 mg PO DAILY [facility]; Protocol Last Admin: 02/27/21 09:57 Dose: 25 mg Documented by: Mirtazapine (Mirtazapine 7.5 Mg Tablet) 7.5 mg PO BEDTIME [facility] Last Admin: 02/26/21 20:01 Dose: 7.5 mg Documented by: Patient Own Med ( Fish Oil 1200mg Caps ) 2 each PO DAILY [facility] Last Admin: 02/27/21 09:55 Dose: 2 each Documented by: Olanzapine (Olanzapine 2.5 Mg Tablet) 2.5 mg PO Q6H PRN PRN Reason: agitation, anxiety Last Admin: 02/23/21 04:40 Dose: 2.5 mg Documented by: Olanzapine (Olanzapine 5 Mg Tablet) 5 mg PO BEDTIME [facility] Last Admin: 02/26/21 20:01 Dose: 5 mg Documented by: Pharmacy Consult (Consult Rx Perform Med Rec) 1 each MISCELLANE ONCE PRN PRN Reason: Consult order Timolol Maleate (Timolol Maleate 0.5 % Oph Cathryn 5 Ml Drbtl) 1 drop EYE-RIGHT DAILY [facility] Last Admin: 02/27/21 10:04 Dose: 1 drop Documented by: Trazodone HCl (Trazodone Hcl 50 Mg Tablet) 50 mg PO BEDTIME PRN PRN Reason: Insomnia Allergies Allergies Allergy/AdvReac Type Severity Reaction Status Date / Time melons Allergy Unknown throat Uncoded 08/13/11 00:00 sweling Assessment & Plan Assessment & Plan (1) Syndrome of inappropriate ADH (SIADH) secretion: Status: Resolved Code(s): E22.2 - Syndrome of inappropriate secretion of antidiuretic hormone (2) Moderate malnutrition: Status: Acute Code(s): E44.0 - Moderate protein-calorie malnutrition (3) Delirium due to another medical condition: Status: Acute Code(s): F05 - Delirium due to known physiological condition (4) SHAHIDA (generalized anxiety disorder): Status: Acute Code(s): F41.1 - Generalized anxiety disorder (5) Altered mental status: Status: Resolved Code(s): R41.82 - Altered mental status, unspecified Assessment and Plan: The patient is an elderly female, with over with good social support admitted initially for increased anxiety but later transferred to the medical unit for severe hyponatremia. The patient complains of a survey griffin of depression and anxiety but recently she has perseveration thoughts, disorganized thought process and increased guilt. Plan 1. Continue same medication, keep Zyprexa 7.5 mg p.o. q.h.s. 2. Keep Klonopin 0.25 mg p.o. t.i.d. 3. Keep Remeron 7.5 mg p.o. q.h.s. to target depression and anxiety. 4. Basic metabolic panel, sodium a urea, urine osmolality and other labs came back normal with no evidence of SIADH, so we stop the fluid restriction. I spent minutes with the patient and/or on the patient floor today, greater than?50% of which was spent counseling/coordinating care. Reason for contiued inpatient stay Substantial Risk for: inability to function, rapid decompensation and med/psych decompensation
[2021-02-27] MEDS: clonazePAM 0.5 MG TABLET PO (20:07)
[2021-02-27] MEDS: Ibuprofen 600 MG TABLET PO (20:07)
[2021-02-27] MEDS: OLANZapine 5 MG TABLET PO (20:07)
[2021-02-27] MEDS: Mirtazapine 7.5 MG TABLET PO (20:08)
[2021-02-27 20:23] VITALS: BP 140/65; PULSE 97; RESP 17; TEMP 36.6; O2SAT 98
[2021-02-28 06:00] VITALS: BP 172/77; PULSE 96; RESP 18; TEMP 36.7; O2SAT 97
[2021-02-28] MEDS: timoloL maleate 0.5 % Oph Sol 5 ML DRBTL 1 DROP EYE-RIGHT (09:33)
[2021-02-28] MEDS: Milk of Magnesia 30 ML ORAL.SUSP PO (09:33)
[2021-02-28 09:34] VITALS: BP 168/74; PULSE 98
[2021-02-28] MEDS: Losartan Potassium 50 MG TABLET 100 MG PO (09:34)
[2021-02-28] MEDS: Docusate Sodium 100 MG CAPSULE PO (09:34)
[2021-02-28] MEDS: Ezetimibe 10 MG TABLET PO (09:34)
[2021-02-28] MEDS: Metoprolol Succinate ER 25 MG TAB.ER.24H PO (09:34)
[2021-02-28] MEDS: Clopidogrel Bisulfate 75 MG TABLET PO (09:34)
[2021-02-28] MEDS: clonazePAM 0.5 MG TABLET PO ×2 (09:34→14:24)
[2021-02-28] MEDS: Aspirin 81 MG TAB.CHEW PO (09:34)
[2021-02-28] MEDS: lisinopriL 5 MG TABLET PO (09:34)
--- NOTE | 2021-02-28 13:43 | MHC.CLN ---
F/U VISITED WITH PATIENT AT [facility]. VARIABLE INTAKE . CONTINUES WITH REGUALR DIET, 1500 ML FLUID RESTRICTION. SUPPLEMENT ENSURE BID (700 KCAL, 26 G PROTEIN) DUE TO MALNUTRITION.
--- NOTE | 2021-02-28 15:15 | HO.PSYCHPN ---
Subjective Subjective Date of Service: 02/28/21 Reason For Visit: Anxiety Disorder Subjective Notes: Conditional Voluntary Interim History: The nursing staff reported the patient has been with lowered humor a more anxious. On interview the patient looked over-sedated since we increased Klonopin. She also looks a little dysphoric. We discussed options and she agreed to lower Klonopin and increase near diazepam. The social sciences professor found out an appointment for her hearing aids next week. The patient feels frustrated sings she cannot understand very well and she feels very frustrated due to her poor hearing Mental Status Exam Mental Status Exam Patient Appearance: Well Grooomed Patient Orientation: Person Level of Consciousness: Awake Patient Behavior: Cooperative Mood Description: Depressed Affect Description: Constricted Patient Cognition Impaired: Yes Ability to Follow Directions: Good Speech Pattern: Appropriate Hallucinations: None Delusions: Not Present Thought Process: Distracted Thought Content: positive for Circumstantial Judgement: Fair Diagnostics Vital Signs (24Hr): Vital Signs - 24 hr 02/27/21 20:23 02/28/21 06:00 02/28/21 09:34 Temperature 97.8 F 98.1 F Pulse Rate 97 96 98 Respiratory Rate 17 18 Blood Pressure 140/65 H 172/77 H 168/74 H Pulse Oximetry 98 97 BMI result Body Mass Index 20.0 Labs Results: 02/25/21 06:39 Imaging Radiology Impressions: ITS Impressions Head CT 02/19/21 08:57 IMPRESSION: No acute findings. Mild generalized atrophy and nonspecific periventricular white matter disease. 1 cm lucent lesion in the left parietal bone. Brain MRI 02/19/21 17:28 IMPRESSION: 1. No acute intracranial abnormalities. 2. Mild to moderate underlying microangiopathy. 3. Qualitatively, there is moderate generalized cerebral volume loss. Quantitative analysis of the NeuroQuant series will be postprocessed with findings dictated as an addendum. Brain MRI 02/19/21 17:56 IMPRESSION: 1. No acute intracranial abnormalities. 2. Mild to moderate underlying microangiopathy. 3. Qualitatively, there is moderate generalized cerebral volume loss. Quantitative analysis of the NeuroQuant series will be postprocessed with findings dictated as an addendum. Medications Medications Current Medications Acetaminophen (Acetaminophen 325 Mg Tablet) 650 mg PO Q6H PRN PRN Reason: Pain, Mild (Pain Scale 1-3) Last Admin: 02/26/21 20:37 Dose: 650 mg Documented by: Al Hydroxide/Mg Hydroxide (Magnesium Hydrox/Alum Hydrox 30 Ml Oral.Susp) 30 ml PO Q6H PRN PRN Reason: Heartburn/Nausea Aspirin (Aspirin 81 Mg Tab.Chew) 81 mg PO DAILY [facility] Last Admin: 02/28/21 09:34 Dose: 81 mg Documented by: Clonazepam (Clonazepam 0.5 Mg Tablet) 0.5 mg PO TID [facility] Last Admin: 02/28/21 14:24 Dose: 0.5 mg Documented by: Clopidogrel Bisulfate (Clopidogrel Bisulfate 75 Mg Tablet) 75 mg PO DAILY [facility] Last Admin: 02/28/21 09:34 Dose: 75 mg Documented by: Docusate Sodium (Docusate Sodium 100 Mg Capsule) 100 mg PO DAILY PRN PRN Reason: Constipation Last Admin: 02/28/21 09:34 Dose: 100 mg Documented by: Ezetimibe (Ezetimibe 10 Mg Tablet) 10 mg PO DAILY [facility] Last Admin: 02/28/21 09:34 Dose: 10 mg Documented by: Ibuprofen (Ibuprofen 600 Mg Tablet) 600 mg PO Q8H PRN PRN Reason: Pain, Moderate (Pain Scale 4-6 Last Admin: 02/27/21 20:07 Dose: 600 mg Documented by: Lisinopril (Lisinopril 5 Mg Tablet) 5 mg PO DAILY [facility]; Protocol Last Admin: 02/28/21 09:34 Dose: 5 mg Documented by: Losartan Potassium (Losartan Potassium 50 Mg Tablet) 100 mg PO DAILY [facility]; Protocol Last Admin: 02/28/21 09:34 Dose: 100 mg Documented by: Magnesium Hydroxide (Milk Of Magnesia 30 Ml Oral.Susp) 30 ml PO DAILY PRN PRN Reason: Constipation Last Admin: 02/28/21 09:33 Dose: 30 ml Documented by: Melatonin (Melatonin 3 Mg Tablet) 3 mg PO BEDTIME PRN PRN Reason: insomnia Last Admin: 02/20/21 20:01 Dose: 3 mg Documented by: Metoprolol Succinate (Metoprolol Succinate Er 25 Mg Tab.Er.24h) 25 mg PO DAILY [facility]; Protocol Last Admin: 02/28/21 09:34 Dose: 25 mg Documented by: Mirtazapine (Mirtazapine 7.5 Mg Tablet) 7.5 mg PO BEDTIME [facility] Last Admin: 02/27/21 20:08 Dose: 7.5 mg Documented by: Patient Own Med ( Fish Oil 1200mg Caps ) 2 each PO DAILY [facility] Last Admin: 02/28/21 09:33 Dose: 2 each Documented by: Olanzapine (Olanzapine 2.5 Mg Tablet) 2.5 mg PO Q6H PRN PRN Reason: agitation, anxiety Last Admin: 02/23/21 04:40 Dose: 2.5 mg Documented by: Olanzapine (Olanzapine 5 Mg Tablet) 5 mg PO BEDTIME [facility] Last Admin: 02/27/21 20:07 Dose: 5 mg Documented by: Pharmacy Consult (Consult Rx Perform Med Rec) 1 each MISCELLANE ONCE PRN PRN Reason: Consult order Timolol Maleate (Timolol Maleate 0.5 % Oph Cathryn 5 Ml Drbtl) 1 drop EYE-RIGHT DAILY [facility] Last Admin: 02/28/21 09:33 Dose: 1 drop Documented by: Trazodone HCl (Trazodone Hcl 50 Mg Tablet) 50 mg PO BEDTIME PRN PRN Reason: Insomnia Allergies Allergies Allergy/AdvReac Type Severity Reaction Status Date / Time melons Allergy Unknown throat Uncoded 08/13/11 00:00 sweling Assessment & Plan Assessment & Plan (1) Syndrome of inappropriate ADH (SIADH) secretion: Status: Resolved Code(s): E22.2 - Syndrome of inappropriate secretion of antidiuretic hormone (2) Moderate malnutrition: Status: Acute Code(s): E44.0 - Moderate protein-calorie malnutrition (3) Delirium due to another medical condition: Status: Acute Code(s): F05 - Delirium due to known physiological condition (4) SHAHIDA (generalized anxiety disorder): Status: Acute Code(s): F41.1 - Generalized anxiety disorder (5) Altered mental status: Status: Resolved Code(s): R41.82 - Altered mental status, unspecified Assessment and Plan: The patient is an elderly female, with over with good social support admitted initially for increased anxiety but later transferred to the medical unit for severe hyponatremia. The patient complains of a survey griffin of depression and anxiety but recently she has perseveration thoughts, disorganized thought process and increased guilt. Plan 1. Continue same medication, keep Zyprexa 5 mg p.o. q.h.s. 2. Keep Klonopin 0.25 mg p.o. t.i.d. 3. Increase Remeron up to 15 mg p.o. q.h.s. to target depression and anxiety. 4. Basic metabolic panel, sodium a urea, urine osmolality and other labs came back normal with no evidence of SIADH, so we stop the fluid restriction. I spent minutes with the patient and/or on the patient floor today, greater than?50% of which was spent counseling/coordinating care. Reason for contiued inpatient stay Substantial Risk for: inability to function, rapid decompensation and med/psych decompensation
[2021-02-28] MEDS: Mirtazapine 15 MG TABLET PO (20:02)
[2021-02-28] MEDS: OLANZapine 5 MG TABLET PO (20:02)
[2021-02-28] MEDS: clonazePAM 0.5 MG TABLET 0.25 MG PO (20:03)
[2021-02-28 20:09] VITALS: BP 149/67; PULSE 97; RESP 16; TEMP 37.2; O2SAT 97
[2021-02-28 20:13] LABS: Alanine Aminotransferase 13 U/L (0-31); Albumin Level 3.7 g/dL (3.5-5.0); Alkaline Phosphatase 106 U/L (39-117); Anion Gap 11 (12-20); Aspartate Amino Transferase 11 U/L (5-31); Bilirubin Total < 0.2 mg/dL (0.0-1.0); Blood Urea Nitrogen 17 mg/dL (9-16); Calcium 9.1 mg/dL (8.4-10.2); Carbon Dioxide 28 mmol/L (22-29); Chloride 106 mmol/L (96-108); Creatinine Clr Calc Pharmacy 47.8; Estimated Glomerular Filt Rate > 60; Glucose Random 108 mg/dL (60-115); Potassium 4.2 mmol/L (3.3-5.1); Sodium 141 mmol/L (135-145); Total Protein 6.1 g/dL (6.5-8.0)
--- NOTE | 2021-02-28 20:33 | P.EN_ITS ---
Event Note Date of Service: 03/01/21 Event Note: At around 18:00, staff electrical engineer reported pt was complaining of R leg swe lling and seeing double. Sx started around 15:00 today. I evaluated the pt and R calf had pitting edema, calf was warm and painful upon palpation. Pt's speech was somewhat slurred and posture abnormal. Pt reports difficulty ambulating due to pain. I consulted with hospitalist, Dr. Bueno, who recommended venous dopler, Head CT for altered mental status, and will order CMP due to hx of hyponatremia and urinalysis. Pt?s vitals showed HR 97, temp 99, BP 149/67 (systolic BP has been elevated at baseline per chart review). Per staff electrical engineer, pt has been having adequate PO intake and output. Per radiologist report, the doppler showed deep vein thrombosis involving peroneal and posterior tibial veins of the calf. However, no evidence of thrombosis within the popliteal or femoral veins. Head CT showed no acute intracranial pathology. Hospitalist was notified and pt was started on lovenox, will follow up as appropriate.
[2021-02-28 20:59] LABS: Appearance Urine CLEAR; Color Urine YELLOW; Glucose Urine UA NEG (NEG); Leukocyte Esterase Urine NEG (NEG); Nitrite Urine NEG (NEG); PH 6.5 (5.0-8.0); Urine Blood NEG (NEG); Urine Ketones NEG (NEG); Urine Protein NEG (NEG-TRACE)
--- NOTE | 2021-02-28 21:18 | P.CNHOSGPS_ITS ---
History of Present Illness Data of Consult Service Date: 02/28/21 Requesting physician: Tanisha Lynn Primary Care Provider: Unknown Physician HPI Reason for consult: leg swelling this is a 80 yo F with pmhx of anxiety, HTN, CAD,?who was initially admitted to the hospital on 02/11 for treatment of hyponatremia subsequently admitted to [facility] for management of severe anxiety has now developed right lower extremity swelling that started yesterday. Patient reports that she noticed this swelling starting at her knee all the way to her foot yesterday but worsened today. She has tenderness, no numbness or tingling, she has no trouble breathing, no chest pain, no palpitations. She reports that she has been ambulating out of bed, but has been BHU for the past 10 days. According to staff and [facility] the also noticed patient having altered mentation and possible slurred speech, when asked patient about it she says that she has always refuted her words but has never had slurred speech no today on on my interview patient is alert oriented x3 with no evidence of altered mentation. Patient otherwise has no abdominal pain nausea or vomiting, no diarrhea constipation, no urinary symptoms, and no headache or change in vision. No numbness tingling or weakness in upper or lower extremities. No facial droop. Lower extremity venous Doppler was ordered which showed DVT and therefore we were asked to see patient in consultation. Vitals within normal limit with no significant abnormality. Patient already on aspirin and Plavix for history of CAD Review of Systems Review of Systems: Yes all other systems are reviewed and are negative [facility] Medical History HTN (hypertension) Myocardial infarct, old Surgical History H/O heart artery stent Social History Household Members: Family Housing: House Do you presently have visiting nurse or other home services: No Patient Tobacco Use Status: Never used Tobacco service: No Sexual orientation: Straight/Heterosexual Meds Allergies Allergy/AdvReac Type Severity Reaction Status Date / Time melons Allergy Unknown throat Uncoded 08/13/11 00:00 sweling Active Medications: Current Medications Acetaminophen (Acetaminophen 325 Mg Tablet) 650 mg PO Q6H PRN PRN Reason: Pain, Mild (Pain Scale 1-3) Last Admin: 02/26/21 20:37 Dose: 650 mg Documented by: Al Hydroxide/Mg Hydroxide (Magnesium Hydrox/Alum Hydrox 30 Ml Oral.Susp) 30 ml PO Q6H PRN PRN Reason: Heartburn/Nausea Aspirin (Aspirin 81 Mg Tab.Chew) 81 mg PO DAILY [facility] Last Admin: 02/28/21 09:34 Dose: 81 mg Documented by: Clonazepam (Clonazepam 0.5 Mg Tablet) 0.25 mg PO TID [facility] Last Admin: 02/28/21 20:03 Dose: 0.25 mg Documented by: Clopidogrel Bisulfate (Clopidogrel Bisulfate 75 Mg Tablet) 75 mg PO DAILY [facility] Last Admin: 02/28/21 09:34 Dose: 75 mg Documented by: Docusate Sodium (Docusate Sodium 100 Mg Capsule) 100 mg PO DAILY PRN PRN Reason: Constipation Last Admin: 02/28/21 09:34 Dose: 100 mg Documented by: Ezetimibe (Ezetimibe 10 Mg Tablet) 10 mg PO DAILY [facility] Last Admin: 02/28/21 09:34 Dose: 10 mg Documented by: Enoxaparin Sodium (Enoxaparin Sodium 60 Mg/0.6 Ml Syringe) 50 mg 1 mg/kg (50 mg) SUBCUT Q12H [facility] Ibuprofen (Ibuprofen 600 Mg Tablet) 600 mg PO Q8H PRN PRN Reason: Pain, Moderate (Pain Scale 4-6 Last Admin: 02/27/21 20:07 Dose: 600 mg Documented by: Lisinopril (Lisinopril 5 Mg Tablet) 5 mg PO DAILY [facility]; Protocol Last Admin: 02/28/21 09:34 Dose: 5 mg Documented by: Losartan Potassium (Losartan Potassium 50 Mg Tablet) 100 mg PO DAILY [facility]; Protocol Last Admin: 02/28/21 09:34 Dose: 100 mg Documented by: Magnesium Hydroxide (Milk Of Magnesia 30 Ml Oral.Susp) 30 ml PO DAILY PRN PRN Reason: Constipation Last Admin: 02/28/21 09:33 Dose: 30 ml Documented by: Melatonin (Melatonin 3 Mg Tablet) 3 mg PO BEDTIME PRN PRN Reason: insomnia Last Admin: 02/20/21 20:01 Dose: 3 mg Documented by: Metoprolol Succinate (Metoprolol Succinate Er 25 Mg Tab.Er.24h) 25 mg PO DAILY [facility]; Protocol Last Admin: 12/17/21 09:34 Dose: 25 mg Documented by: Mirtazapine (Mirtazapine 15 Mg Tablet) 15 mg PO BEDTIME [facility] Last Admin: 02/28/21 20:02 Dose: 15 mg Documented by: Patient Own Med ( Fish Oil 1200mg Caps ) 2 each PO DAILY [facility] Last Admin: 02/28/21 09:33 Dose: 2 each Documented by: Olanzapine (Olanzapine 2.5 Mg Tablet) 2.5 mg PO Q6H PRN PRN Reason: agitation, anxiety Last Admin: 02/23/21 04:40 Dose: 2.5 mg Documented by: Olanzapine (Olanzapine 5 Mg Tablet) 5 mg PO BEDTIME [facility] Last Admin: 02/28/21 20:02 Dose: 5 mg Documented by: Pharmacy Consult (Consult Rx Perform Med Rec) 1 each MISCELLANE ONCE PRN PRN Reason: Consult order Timolol Maleate (Timolol Maleate 0.5 % Oph Cathryn 5 Ml Drbtl) 1 drop EYE-RIGHT DAILY [facility] Last Admin: 02/28/21 09:33 Dose: 1 drop Documented by: Trazodone HCl (Trazodone Hcl 50 Mg Tablet) 50 mg PO BEDTIME PRN PRN Reason: Insomnia Home Medications Medication Instructions Recorded Confirmed Last Taken Type aspirin 81 mg tablet 81 mg PO DAILY 02/11/21 02/18/21 02/11/21 History clopidogrel 75 mg tablet 75 mg PO DAILY 02/11/21 02/18/21 02/11/21 History ezetimibe 10 mg tablet 10 mg PO DAILY 02/11/21 02/18/21 02/11/21 History losartan 100 mg tablet 100 mg PO DAILY 02/11/21 02/18/21 02/11/21 History melatonin 3 mg tablet 1 tab PO BEDTIME PRN 02/11/21 02/18/21 02/10/21 History metoprolol succinate 25 mg 25 mg PO DAILY 02/11/21 02/18/21 02/11/21 History tablet,extended release 24 hr timolol maleate 0.5 % eye drops 1 drp OPHTHALMIC-RIGHT DAILY 02/11/21 02/18/21 02/11/21 History Results Labs CBC and Chem 7: 02/28/21 21:37 02/28/21 19:44 Labs: Laboratory Results - last 24 hr 02/28/21 02/28/21 19:44 20:14 Anion Gap 11 L Estim Creat Clear Calc 47.8 Estimated GFR > 60 Random Glucose 108 Calcium 9.1 Total Bilirubin < 0.2 AST 11 ALT 13 Alkaline Phosphatase 106 D Total Protein 6.1 L Albumin 3.7 Urine Color YELLOW Urine Appearance CLEAR Urine pH 6.5 Ur Specific Preston 1.010 Urine Protein NEG Urine Glucose (UA) NEG Urine Ketones NEG Urine Blood NEG Urine Nitrite NEG Ur Leukocyte Esterase NEG Assessment and Plan (1) Acute DVT (deep venous thrombosis): Status: Acute (2) AMS (altered mental status): Status: Acute 80 yo F who is currently being treated for anxiety at [facility], has now developed right lower extremity edema, found to have DVT # acute DVT - most likely 2/2 hospitalization - no evidence of respiratory abnormality or PE - will start of therapeutic Lovenox - consult hematology for anticoagulation # Reported AMS - no evidence of AMS on my exam, pt alert oriented x3 - Head CT negative - monitor mentation - continue psych meds per [facility] thank you for this consult Physical Exam Vital Signs: Last Vital Signs Temp 99 F 02/28/21 20:09 Pulse 97 02/28/21 20:09 Resp 16 02/28/21 20:09 BP 149/67 H 02/28/21 20:09 Pulse Ox 97 02/28/21 20:09 BMI result Body Mass Index 20.0 Const General: cooperative and no acute distress Orientation/consciousness: patient oriented x3 Eyes General: appearance normal, both eyes and all related structures Pupils: Equal, round and reactive pupils present Resp Effort & Inspection: normal respiratory effort Auscultation: clear to auscultation bilaterally Cardio Rate: regular rate Rhythm: regular rhythm GI Palpation (GI): Soft to palpation Auscultation: normal bowel sounds Skin General skin exam: no rashes or lesions noted Neuro General: patient oriented x3 Cranial nerves: Yes Equal, round and reactive pupils present Cognition (Neuro): normal cognition Extrem Other: Right lower extremity swelling in the feet and moderately up to the knee, no erythema, or warmth
[2021-02-28] MEDS: Enoxaparin Sodium 60 MG/0.6 ML SYRINGE 50 MG SUBCUT (21:36)
[2021-02-28 21:42] LABS: Hematocrit 30.9 % (37.0-47.0); Mean Corpuscular HGB Conc 32.4 g/dl (31.0-35.0); Mean Corpuscular Volume 95.7 fL (80.0-98.0); Mean Platelet Volume 8.2 fL (9.4-12.3); Platelet Count 414 X10*3/uL (160-400); Red Blood Count 3.23 X10*6/uL (4.20-5.50); Red Cell Distribution Width 13.4 % (11.0-16.0); White Blood Count 7.9 X10*3/uL (4.8-10.8)
[2021-02-28 22:01] LABS: INTERNATIONAL NORM RATIO 0.9 (0.9-1.1); Prothrombin Time 9.7 SEC (9.9-13.0)
[2021-02-28 22:03] LABS: Partial Thromboplastin Time 29.2 SEC (24.1-38.0)
--- NOTE | 2021-02-28 22:30 | PC.NURSE ---
At begining of shift PT presenting with RLE edema, warm to touch, non pitting, notified, ultrasound showed DVT to RL calf, new order for Lovenox 50mg BID. PT also presenting with slurred speech at times, VSS. Head CT ordered. Lab work and urinalysis were also done. No SOB or chest pain. PT will be monitored.
[2021-03-01 08:00] VITALS: BP 158/74; PULSE 100; RESP 16; TEMP 36.7; O2SAT 97
[2021-03-01 09:07] VITALS: BP 158/74; PULSE 100
[2021-03-01] MEDS: Metoprolol Succinate ER 25 MG TAB.ER.24H PO (09:07)
[2021-03-01] MEDS: Losartan Potassium 50 MG TABLET 100 MG PO (09:07)
[2021-03-01] MEDS: clonazePAM 0.5 MG TABLET 0.25 MG PO ×3 (09:08→20:08)
[2021-03-01 09:09] VITALS: BP 158/74; PULSE 100
[2021-03-01] MEDS: Aspirin 81 MG TAB.CHEW PO (09:09)
[2021-03-01] MEDS: Clopidogrel Bisulfate 75 MG TABLET PO (09:09)
[2021-03-01] MEDS: lisinopriL 5 MG TABLET PO (09:09)
[2021-03-01] MEDS: Ezetimibe 10 MG TABLET PO (09:09)
[2021-03-01] MEDS: Enoxaparin Sodium 60 MG/0.6 ML SYRINGE 50 MG SUBCUT ×2 (09:12→20:07)
[2021-03-01] MEDS: timoloL maleate 0.5 % Oph Sol 5 ML DRBTL 1 DROP EYE-RIGHT (09:12)
--- NOTE | 2021-03-01 09:57 | HO.PSYCHPN ---
Subjective Subjective Date of Service: 03/01/21 Reason For Visit: Anxiety Disorder Subjective Notes: Conditional Voluntary Interim History: The nursing staff reported the patient had the DVT yesterday and and hospitalist was called. She was placed on level next after having a head scan, will dress sound and other tests. On interview the patient was very anxious and scared about this new diagnosis. Mental Status Exam Mental Status Exam Patient Appearance: Well Grooomed Patient Orientation: Person Level of Consciousness: Awake Patient Behavior: Cooperative Mood Description: Constricted Affect Description: Constricted Patient Cognition Impaired: Yes Ability to Follow Directions: Good Speech Pattern: Appropriate Hallucinations: None Delusions: Paranoid Ideation Thought Process: Linear Thought Content: positive for Circumstantial Judgement: Fair Diagnostics Vital Signs (24Hr): Vital Signs - 24 hr 02/28/21 20:09 03/01/21 08:00 03/01/21 09:07 Temperature 99 F 98.0 F Pulse Rate 97 100 100 Respiratory Rate 16 16 Blood Pressure 149/67 H 158/74 H 158/74 H Pulse Oximetry 97 97 03/01/21 09:09 Temperature Pulse Rate 100 Respiratory Rate Blood Pressure 158/74 H Pulse Oximetry BMI result Body Mass Index 20.0 Labs Results: 02/28/21 21:37 02/28/21 19:44 Labs: Laboratory Results - last 48 hr 02/28/21 02/28/21 02/28/21 19:44 20:14 21:37 WBC 7.9 RBC 3.23 L Hgb 10.0 L Hct 30.9 L MCV 95.7 MCH 31.0 MCHC 32.4 RDW 13.4 Plt Count 414 H MPV 8.2 L Absolute Nucleated RBC 0.000 Nucleated RBC % (auto) 0.0 PT INR APTT Sodium 141 Potassium 4.2 Chloride 106 Carbon Dioxide 28 Anion Gap 11 L BUN 17 H Creatinine 0.72 Estim Creat Clear Calc 47.8 Estimated GFR > 60 Random Glucose 108 Calcium 9.1 Total Bilirubin < 0.2 AST 11 ALT 13 Alkaline Phosphatase 106 D Total Protein 6.1 L Albumin 3.7 Urine Color YELLOW Urine Appearance CLEAR Urine pH 6.[address] [place] 1.010 Urine Protein NEG Urine Glucose (UA) NEG Urine Ketones NEG Urine Blood NEG Urine Nitrite NEG Ur Leukocyte Esterase NEG 02/28/21 21:37 WBC RBC Hgb Hct MCV MCH MCHC RDW Plt Count MPV Absolute Nucleated RBC Nucleated RBC % (auto) PT 9.7 L INR 0.9 APTT 29.2 Sodium Potassium Chloride Carbon Dioxide Anion Gap BUN Creatinine Estim Creat Clear Calc Estimated GFR Random Glucose Calcium Total Bilirubin AST ALT Alkaline Phosphatase Total Protein Albumin Urine Color Urine Appearance Urine pH Ur Specific [place] Urine Protein Urine Glucose (UA) Urine Ketones Urine Blood Urine Nitrite Ur Leukocyte Esterase Imaging Radiology Impressions: ITS Impressions Head CT 02/19/21 08:57 IMPRESSION: No acute findings. Mild generalized atrophy and nonspecific periventricular white matter disease. 1 cm lucent lesion in the left parietal bone. Brain MRI 02/19/21 17:28 IMPRESSION: 1. No acute intracranial abnormalities. 2. Mild to moderate underlying microangiopathy. 3. Qualitatively, there is moderate generalized cerebral volume loss. Quantitative analysis of the NeuroQuant series will be postprocessed with findings dictated as an addendum. Brain MRI 02/19/21 17:56 IMPRESSION: 1. No acute intracranial abnormalities. 2. Mild to moderate underlying microangiopathy. 3. Qualitatively, there is moderate generalized cerebral volume loss. Quantitative analysis of the NeuroQuant series will be postprocessed with findings dictated as an addendum. Venous Duplex 02/28/21 20:42 IMPRESSION: There is deep vein thrombosis involving peroneal and posterior tibial veins of the calf. However, no evidence of thrombosis within the popliteal or femoral veins. Note: We have been attempting to provide a direct [id number] communication of test results. Contact was made. The critical test result was discussed with Dr. Lynn at 9:50 PM on 02/28/2021 and it was ascertained that the content and the importance of the findings was understood at the time of the direct communication. Head CT 02/28/21 21:30 IMPRESSION: No acute intracranial pathology. Medications Medications Current Medications Acetaminophen (Acetaminophen 325 Mg Tablet) 650 mg PO Q6H PRN PRN Reason: Pain, Mild (Pain Scale 1-3) Last Admin: 02/26/21 20:37 Dose: 650 mg Documented by: Al Hydroxide/Mg Hydroxide (Magnesium Hydrox/Alum Hydrox 30 Ml Oral.Susp) 30 ml PO Q6H PRN PRN Reason: Heartburn/Nausea Aspirin (Aspirin 81 Mg Tab.Chew) 81 mg PO DAILY MICHELLE Last Admin: 03/01/21 09:09 Dose: 81 mg Documented by: Clonazepam (Clonazepam 0.5 Mg Tablet) 0.25 mg PO TID [facility], [facility] Last Admin: 03/01/21 09:08 Dose: 0.25 mg Documented by: Clopidogrel Bisulfate (Clopidogrel Bisulfate 75 Mg Tablet) 75 mg PO DAILY [facility] Last Admin: 03/01/21 09:09 Dose: 75 mg Documented by: Docusate Sodium (Docusate Sodium 100 Mg Capsule) 100 mg PO DAILY PRN PRN Reason: Constipation Last Admin: 02/28/21 09:34 Dose: 100 mg Documented by: Ezetimibe (Ezetimibe 10 Mg Tablet) 10 mg PO DAILY [facility] Last Admin: 03/01/21 09:09 Dose: 10 mg Documented by: Enoxaparin Sodium (Enoxaparin Sodium 60 Mg/0.6 Ml Syringe) 50 mg 1 mg/kg (50 mg) SUBCUT Q12H [facility], [facility] Last Admin: 03/01/21 09:12 Dose: 50 mg Documented by: Ibuprofen (Ibuprofen 600 Mg Tablet) 600 mg PO Q8H PRN PRN Reason: Pain, Moderate (Pain Scale 4-6 Last Admin: 02/27/21 20:07 Dose: 600 mg Documented by: Lisinopril (Lisinopril 5 Mg Tablet) 5 mg PO DAILY [facility], [facility]; Protocol Last Admin: 03/01/21 09:09 Dose: 5 mg Documented by: Losartan Potassium (Losartan Potassium 50 Mg Tablet) 100 mg PO DAILY [facility], [facility]; Protocol Last Admin: 03/01/21 09:07 Dose: 100 mg Documented by: Magnesium Hydroxide (Milk Of Magnesia 30 Ml Oral.Susp) 30 ml PO DAILY PRN PRN Reason: Constipation Last Admin: 02/28/21 09:33 Dose: 30 ml Documented by: Melatonin (Melatonin 3 Mg Tablet) 3 mg PO BEDTIME PRN PRN Reason: insomnia Last Admin: 02/20/21 20:01 Dose: 3 mg Documented by: Metoprolol Succinate (Metoprolol Succinate Er 25 Mg Tab.Er.24h) 25 mg PO DAILY [facility], [facility]; Protocol Last Admin: 03/01/21 09:07 Dose: 25 mg Documented by: Mirtazapine (Mirtazapine 15 Mg Tablet) 15 mg PO BEDTIME [facility] Last Admin: 02/28/21 20:02 Dose: 15 mg Documented by: Multi-Ingred Cream/Lotion/Oil/Oint (Mineral Oil/Petrolatum,White 106 Gm Tube) 1 appl TOPICAL BID [facility], [facility] Patient Own Med ( Fish Oil 1200mg Caps ) 2 each PO DAILY MICHELLE Last Admin: 03/01/21 09:06 Dose: 2 each Documented by: Olanzapine (Olanzapine 2.5 Mg Tablet) 2.5 mg PO Q6H PRN PRN Reason: agitation, anxiety Last Admin: 02/23/21 04:40 Dose: 2.5 mg Documented by: Olanzapine (Olanzapine 5 Mg Tablet) 5 mg PO BEDTIME MICHELLE Last Admin: 02/28/21 20:02 Dose: 5 mg Documented by: Pharmacy Consult (Consult Rx Perform Med Rec) 1 each MISCELLANE ONCE PRN PRN Reason: Consult order Timolol Maleate (Timolol Maleate 0.5 % Oph [place] 5 Ml Drbtl) 1 drop EYE-RIGHT DAILY MICHELLE Last Admin: 03/01/21 09:12 Dose: 1 drop Documented by: Trazodone HCl (Trazodone Hcl 50 Mg Tablet) 50 mg PO BEDTIME PRN PRN Reason: Insomnia Allergies Allergies Allergy/AdvReac Type Severity Reaction Status Date / Time melons Allergy Unknown throat Uncoded 08/13/11 00:00 sweling Assessment & Plan Assessment & Plan (1) Acute DVT (deep venous thrombosis): Status: Acute Code(s): I82.409 - Acute embolism and thrombosis of unspecified deep veins of unspecified lower extremity (2) AMS (altered mental status): Status: Acute Code(s): R41.82 - Altered mental status, unspecified Assessment and Plan: 80 yo F who is currently being treated for anxiety at [facility], has now developed right lower extremity edema, found to have DVT # acute DVT - most likely 2/2 hospitalization - no evidence of respiratory abnormality or PE - will start of therapeutic Lovenox - consult hematology for anticoagulation # Reported AMS - no evidence of AMS on my exam, pt alert oriented x3 - Head CT negative - monitor mentation - continue psych meds per [facility] Plan Continue with psychiatric medications. Continue follow-up by Medicine I spent minutes with the patient and/or on the patient floor today, greater than?50% of which was spent counseling/coordinating care. Reason for contiued inpatient stay Substantial Risk for: inability to function, rapid decompensation and med/psych decompensation
[2021-03-01] MEDS: Mineral Oil/Petrolatum,White 106 GM Tube 1 APPL TOPICAL ×2 (11:22→20:07)
[2021-03-01 12:00] VITALS: BP 154/69; PULSE 87
--- NOTE | 2021-03-01 12:21 | PC.NURSE ---
Follow up to DVT discovered yesterday: This morning Ms. Bedoya continues to experience swelling in right calf. It is notably larger than left calf- right 36 cm and left 31 cm. The right calf is warm to touch with no redness noted. Ms Bedoya denies pain and denies the area is tender to touch. In addition, Mrs. Bedoya denies numbness or tingling in either lower extremity. Pedal pulses are palpable, Circulation, sensation and motion appear normal in all extremities. Hand grasps and strength in lower extremities appear equal and within normal limits. She denies abdominal pain, nausea, vomiting, dizziness and denies headache or change in vision. Vital signs are within patient's normal limits. 8am: 158/74 BP, 100 12noon: 154/69 BP, 87 HR. She is alert, fully oriented. Speech is normal rate, rhythm and prosidy with no slurring noted. Mrs Bedoya is ambulating with her walker without difficulty. I sent a [place] Text message to Dr Lee questioning need for hematology consult as outlined in Dr Santoro's 02/28/21 note and questioning need for compression stockings. No new orders received.
[2021-03-01 19:48] VITALS: BP 137/97; PULSE 99; RESP 17; TEMP 37.2; O2SAT 97
[2021-03-01] MEDS: OLANZapine 5 MG TABLET PO (20:08)
[2021-03-01] MEDS: Mirtazapine 15 MG TABLET PO (20:08)
[2021-03-01 21:47] LABS: INTERNATIONAL NORM RATIO 0.9 (0.9-1.1); Prothrombin Time 10.1 SEC (9.9-13.0)
[2021-03-02 06:00] VITALS: BP 176/79; PULSE 110; RESP 16; TEMP 36.7; O2SAT 94
[2021-03-02 08:01] VITALS: BP 176/79; PULSE 110
[2021-03-02] MEDS: Metoprolol Succinate ER 25 MG TAB.ER.24H PO (08:01)
[2021-03-02] MEDS: Losartan Potassium 50 MG TABLET 100 MG PO (08:01)
[2021-03-02] MEDS: Aspirin 81 MG TAB.CHEW PO (08:01)
[2021-03-02] MEDS: lisinopriL 5 MG TABLET PO (08:01)
[2021-03-02] MEDS: Clopidogrel Bisulfate 75 MG TABLET PO (08:01)
[2021-03-02] MEDS: clonazePAM 0.5 MG TABLET 0.25 MG PO ×3 (08:01→20:56)
[2021-03-02] MEDS: Ezetimibe 10 MG TABLET PO (08:01)
[2021-03-02] MEDS: Mineral Oil/Petrolatum,White 106 GM Tube 1 APPL TOPICAL ×2 (08:03→20:58)
[2021-03-02] MEDS: timoloL maleate 0.5 % Oph Sol 5 ML DRBTL 1 DROP EYE-RIGHT (08:03)
[2021-03-02] MEDS: Enoxaparin Sodium 60 MG/0.6 ML SYRINGE 50 MG SUBCUT ×2 (09:17→20:58)
--- NOTE | 2021-03-02 10:14 | P.PNPSI_ITS ---
Subjective Subjective Date of Service: 03/02/21 Reason For Visit: Anxiety Disorder Subjective Notes: Conditional Voluntary Interim History: The nursing staff reports the patient has been is slightly anxious and she has requested to be discharged before [place]. She has been fully compliant with treatment. On interview, the patient denies new symptoms she is anxious but no over- sedation with the change of medications. She is fully aware that she has DVT a nd she has an appointment with ENT on Wednesday. Mental Status Exam Mental Status Exam Patient Appearance: Well Grooomed Patient Orientation: Person Level of Consciousness: Awake Patient Behavior: Cooperative Mood Description: Depressed Affect Description: Constricted Patient Cognition Impaired: Yes Speech Pattern: Appropriate Hallucinations: None Delusions: Not Present Thought Process: Linear Thought Content: positive for Circumstantial Judgement: Fair Diagnostics Vital Signs (24Hr): Vital Signs - 24 hr 03/01/21 12:00 03/01/21 19:48 03/02/21 06:00 Temperature 99 F 98.1 F Pulse Rate 87 99 110 H Respiratory Rate 17 16 Blood Pressure 154/69 H 137/97 H 176/79 H Pulse Oximetry 97 94 03/02/21 08:01 Temperature Pulse Rate 110 H Respiratory Rate Blood Pressure 176/79 H Pulse Oximetry BMI result Body Mass Index 20.0 Labs Results: 02/28/21 21:37 02/28/21 19:44 Labs: Laboratory Results - last 48 hr 02/28/21 02/28/21 02/28/21 19:44 20:14 21:37 WBC 7.9 RBC 3.23 L Hgb 10.0 L Hct 30.9 L MCV 95.7 MCH 31.0 MCHC 32.4 RDW 13.4 Plt Count 414 H MPV 8.2 L Absolute Nucleated RBC 0.000 Nucleated RBC % (auto) 0.0 PT INR APTT Sodium 141 Potassium 4.2 Chloride 106 Carbon Dioxide 28 Anion Gap 11 L BUN 17 H Creatinine 0.72 Estim Creat Clear Calc 47.8 Estimated GFR > 60 Random Glucose 108 Calcium 9.1 Total Bilirubin < 0.2 AST 11 ALT 13 Alkaline Phosphatase 106 D Total Protein 6.1 L Albumin 3.7 Urine Color YELLOW Urine Appearance CLEAR Urine pH 6.5 Ur Specific [place] 1.010 Urine Protein NEG Urine Glucose (UA) NEG Urine Ketones NEG Urine Blood NEG Urine Nitrite NEG Ur Leukocyte Esterase NEG 02/28/21 03/01/21 21:37 21:31 WBC RBC Hgb Hct MCV MCH MCHC RDW Plt Count MPV Absolute Nucleated RBC Nucleated RBC % (auto) PT 9.7 L 10.1 INR 0.9 0.9 APTT 29.2 Sodium Potassium Chloride Carbon Dioxide Anion Gap BUN Creatinine Estim Creat Clear Calc Estimated GFR Random Glucose Calcium Total Bilirubin AST ALT Alkaline Phosphatase Total Protein Albumin Urine Color Urine Appearance Urine pH Ur Specific [place] Urine Protein Urine Glucose (UA) Urine Ketones Urine Blood Urine Nitrite Ur Leukocyte Esterase Imaging Radiology Impressions: ITS Impressions Head CT 02/19/21 08:57 IMPRESSION: No acute findings. Mild generalized atrophy and nonspecific periventricular white matter disease. 1 cm lucent lesion in the left parietal bone. Brain MRI 02/19/21 17:28 IMPRESSION: 1. No acute intracranial abnormalities. 2. Mild to moderate underlying microangiopathy. 3. Qualitatively, there is moderate generalized cerebral volume loss. Quantitative analysis of the NeuroQuant series will be postprocessed with findings dictated as an addendum. Brain MRI 02/19/21 17:56 IMPRESSION: 1. No acute intracranial abnormalities. 2. Mild to moderate underlying microangiopathy. 3. Qualitatively, there is moderate generalized cerebral volume loss. Quantitative analysis of the NeuroQuant series will be postprocessed with findings dictated as an addendum. Venous Duplex 02/28/21 20:42 IMPRESSION: There is deep vein thrombosis involving peroneal and posterior tibial veins of the calf. However, no evidence of thrombosis within the popliteal or femoral veins. Note: We have been attempting to provide a direct [id number] communication of test results. Contact was made. The critical test result was discussed with Dr. Lynn at 9:50 PM on 02/28/2021 and it was ascertained that the content and the importance of the findings was understood at the time of the direct communication. Head CT 02/28/21 21:30 IMPRESSION: No acute intracranial pathology. Medications Medications Current Medications Acetaminophen (Acetaminophen 325 Mg Tablet) 650 mg PO Q6H PRN PRN Reason: Pain, Mild (Pain Scale 1-3) Last Admin: 02/26/21 20:37 Dose: 650 mg Documented by: Al Hydroxide/Mg Hydroxide (Magnesium Hydrox/Alum Hydrox 30 Ml Oral.Susp) 30 ml PO Q6H PRN PRN Reason: Heartburn/Nausea Aspirin (Aspirin 81 Mg Tab.Chew) 81 mg PO DAILY MICHELLE Last Admin: 03/02/21 08:01 Dose: 81 mg Documented by: Clonazepam (Clonazepam 0.5 Mg Tablet) 0.25 mg PO TID [facility] Last Admin: 03/02/21 08:01 Dose: 0.25 mg Documented by: Clopidogrel Bisulfate (Clopidogrel Bisulfate 75 Mg Tablet) 75 mg PO DAILY [facility] Last Admin: 03/02/21 08:01 Dose: 75 mg Documented by: Docusate Sodium (Docusate Sodium 100 Mg Capsule) 100 mg PO DAILY PRN PRN Reason: Constipation Last Admin: 02/28/21 09:34 Dose: 100 mg Documented by: Ezetimibe (Ezetimibe 10 Mg Tablet) 10 mg PO DAILY [facility] Last Admin: 03/02/21 08:01 Dose: 10 mg Documented by: Enoxaparin Sodium (Enoxaparin Sodium 60 Mg/0.6 Ml Syringe) 50 mg 1 mg/kg (50 mg) SUBCUT Q12H [facility] Last Admin: 03/02/21 09:17 Dose: 50 mg Documented by: Ibuprofen (Ibuprofen 600 Mg Tablet) 600 mg PO Q8H PRN PRN Reason: Pain, Moderate (Pain Scale 4-6 Last Admin: 02/27/21 20:07 Dose: 600 mg Documented by: Lisinopril (Lisinopril 5 Mg Tablet) 5 mg PO DAILY [facility]; Protocol Last Admin: 03/02/21 08:01 Dose: 5 mg Documented by: Losartan Potassium (Losartan Potassium 50 Mg Tablet) 100 mg PO DAILY [facility]; Protocol Last Admin: 03/02/21 08:01 Dose: 100 mg Documented by: Magnesium Hydroxide (Milk Of Magnesia 30 Ml Oral.Susp) 30 ml PO DAILY PRN PRN Reason: Constipation Last Admin: 02/28/21 09:33 Dose: 30 ml Documented by: Melatonin (Melatonin 3 Mg Tablet) 3 mg PO BEDTIME PRN PRN Reason: insomnia Last Admin: 02/20/21 20:01 Dose: 3 mg Documented by: Metoprolol Succinate (Metoprolol Succinate Er 25 Mg Tab.Er.24h) 25 mg PO DAILY [facility]; Protocol Last Admin: 03/02/21 08:01 Dose: 25 mg Documented by: Mirtazapine (Mirtazapine 15 Mg Tablet) 15 mg PO BEDTIME [facility] Last Admin: 03/01/21 20:08 Dose: 15 mg Documented by: Multi-Ingred Cream/Lotion/Oil/Oint (Mineral Oil/Petrolatum,White 106 Gm Tube) 1 appl TOPICAL BID MICHELLE Last Admin: 03/02/21 08:03 Dose: 1 appl Documented by: Patient Own Med ( Fish Oil 1200mg Caps ) 2 each PO DAILY MICHELLE Last Admin: 03/02/21 08:02 Dose: 2 each Documented by: Olanzapine (Olanzapine 2.5 Mg Tablet) 2.5 mg PO Q6H PRN PRN Reason: agitation, anxiety Last Admin: 02/23/21 04:40 Dose: 2.5 mg Documented by: Olanzapine (Olanzapine 5 Mg Tablet) 5 mg PO BEDTIME MICHELLE Last Admin: 03/01/21 20:08 Dose: 5 mg Documented by: Pharmacy Consult (Consult Rx Perform Med Rec) 1 each MISCELLANE ONCE PRN PRN Reason: Consult order Timolol Maleate (Timolol Maleate 0.5 % Oph [place] 5 Ml Drbtl) 1 drop EYE-RIGHT DAILY [facility] Last Admin: 03/02/21 08:03 Dose: 1 drop Documented by: Trazodone HCl (Trazodone Hcl 50 Mg Tablet) 50 mg PO BEDTIME PRN PRN Reason: Insomnia Allergies Allergies Allergy/AdvReac Type Severity Reaction Status Date / Time melons Allergy Unknown throat Uncoded 08/13/11 00:00 sweling Assessment & Plan Assessment & Plan (1) Acute DVT (deep venous thrombosis): Status: Acute Code(s): I82.409 - Acute embolism and thrombosis of unspecified deep veins of unspecified lower extremity (2) AMS (altered mental status): Status: Acute Code(s): R41.82 - Altered mental status, unspecified Assessment and Plan: 80 yo F who is currently being treated for anxiety at [facility], has now developed right lower extremity edema, found to have DVT # acute DVT - most likely 2/2 hospitalization - no evidence of respiratory abnormality or PE - will start of therapeutic Lovenox - consult hematology for anticoagulation # Reported AMS - no evidence of AMS on my exam, pt alert oriented x3 - Head CT negative - monitor mentation - continue psych meds per [facility] Plan Continue with psychiatric medications. Continue follow-up by Medicine I spent minutes with the patient and/or on the patient floor today, greater than?50% of which was spent counseling/coordinating care. Reason for contiued inpatient stay Substantial Risk for: inability to function, rapid decompensation and med/psych decompensation
--- NOTE | 2021-03-02 10:40 | PC.NURSE ---
Pt signed 3 day notice. Up on Monday 03/05. , YUSEF, UR aware.
--- NOTE | 2021-03-02 11:47 | PM.HEMONCCN ---
Subjective - Subjective Chief complaint: DVT right calf Patient: new to practice Consult date: 03/02/21 Primary Care Provider: Unknown Physician HPI - Consult Narrative Reason for consult: DVT Narrative: Lina Bedoya is a 80 year old female She is a 80 year old woman admitted for generalized anxiety who had developed right le pain and swelling. An ultrasound showed calf julia thrombosis and she is on lovenox. I have ordered a thrombophilia evaluation. She should have a hematologst see her tomorrow and in follow up. Review of Systems - Constitutional Reports anorexia - ENT Reports system reviewed and no additional complaints, except as documented - Cardiovascular Reports leg pain with activity - Respiratory Reports other - Gastrointestinal Reports other [facility] Medical History: Medical History (Last Reviewed 02/18/21 @ 16:26 by Saúl Lee) HTN (hypertension) Myocardial infarct, old Surgical History: Surgical History (Last Reviewed 02/18/21 @ 16:26 by Saúl Lee) H/O heart artery stent Social History: Social History (Last Reviewed 02/12/21 @ 06:26 by Vincent Bueno MD) Living Situation History: Household Members: Family Housing: House Do you presently have visiting nurse or other home services: No Tobacco History: Patient Tobacco Use Status: Never used Tobacco Occupation Assessmet: service: No Sex/Gender Assessment: Sexual orientation: Straight/Heterosexual Home Medications and Allergies Current Medications: Current Medications Acetaminophen (Acetaminophen 325 Mg Tablet) 650 mg PO Q6H PRN PRN Reason: Pain, Mild (Pain Scale 1-3) Last Admin: 02/26/21 20:37 Dose: 650 mg Documented by: Al Hydroxide/Mg Hydroxide (Magnesium Hydrox/Alum Hydrox 30 Ml Oral.Susp) 30 ml PO Q6H PRN PRN Reason: Heartburn/Nausea Aspirin (Aspirin 81 Mg Tab.Chew) 81 mg PO DAILY [facility] Last Admin: 03/02/21 08:01 Dose: 81 mg Documented by: Clonazepam (Clonazepam 0.5 Mg Tablet) 0.25 mg PO TID [facility] Last Admin: 03/02/21 08:01 Dose: 0.25 mg Documented by: Clopidogrel Bisulfate (Clopidogrel Bisulfate 75 Mg Tablet) 75 mg PO DAILY [facility] Last Admin: 03/02/21 08:01 Dose: 75 mg Documented by: Docusate Sodium (Docusate Sodium 100 Mg Capsule) 100 mg PO DAILY PRN PRN Reason: Constipation Last Admin: 02/28/21 09:34 Dose: 100 mg Documented by: Ezetimibe (Ezetimibe 10 Mg Tablet) 10 mg PO DAILY [facility] Last Admin: 03/02/21 08:01 Dose: 10 mg Documented by: Enoxaparin Sodium (Enoxaparin Sodium 60 Mg/0.6 Ml Syringe) 50 mg 1 mg/kg (50 mg) SUBCUT Q12H [facility] Last Admin: 03/02/21 09:17 Dose: 50 mg Documented by: Ibuprofen (Ibuprofen 600 Mg Tablet) 600 mg PO Q8H PRN PRN Reason: Pain, Moderate (Pain Scale 4-6 Last Admin: 02/27/21 20:07 Dose: 600 mg Documented by: Lisinopril (Lisinopril 5 Mg Tablet) 5 mg PO DAILY [facility]; Protocol Last Admin: 03/02/21 08:01 Dose: 5 mg Documented by: Losartan Potassium (Losartan Potassium 50 Mg Tablet) 100 mg PO DAILY [facility]; Protocol Last Admin: 03/02/21 08:01 Dose: 100 mg Documented by: Magnesium Hydroxide (Milk Of Magnesia 30 Ml Oral.Susp) 30 ml PO DAILY PRN PRN Reason: Constipation Last Admin: 02/28/21 09:33 Dose: 30 ml Documented by: Melatonin (Melatonin 3 Mg Tablet) 3 mg PO BEDTIME PRN PRN Reason: insomnia Last Admin: 02/20/21 20:01 Dose: 3 mg Documented by: Metoprolol Succinate (Metoprolol Succinate Er 25 Mg Tab.Er.24h) 25 mg PO DAILY [facility]; Protocol Last Admin: 03/02/21 08:01 Dose: 25 mg Documented by: Mirtazapine (Mirtazapine 15 Mg Tablet) 15 mg PO BEDTIME [facility] Last Admin: 03/01/21 20:08 Dose: 15 mg Documented by: Multi-Ingred Cream/Lotion/Oil/Oint (Mineral Oil/Petrolatum,White 106 Gm Tube) 1 appl TOPICAL BID [facility] Last Admin: 03/02/21 08:03 Dose: 1 appl Documented by: Patient Own Med ( Fish Oil 1200mg Caps ) 2 each PO DAILY [facility] Last Admin: 03/02/21 08:02 Dose: 2 each Documented by: Olanzapine (Olanzapine 2.5 Mg Tablet) 2.5 mg PO Q6H PRN PRN Reason: agitation, anxiety Last Admin: 02/23/21 04:40 Dose: 2.5 mg Documented by: Olanzapine (Olanzapine 5 Mg Tablet) 5 mg PO BEDTIME [facility] Last Admin: 03/01/21 20:08 Dose: 5 mg Documented by: Pharmacy Consult (Consult Rx Perform Med Rec) 1 each MISCELLANE ONCE PRN PRN Reason: Consult order Timolol Maleate (Timolol Maleate 0.5 % Oph Cathryn 5 Ml Drbtl) 1 drop EYE-RIGHT DAILY [facility] Last Admin: 03/02/21 08:03 Dose: 1 drop Documented by: Trazodone HCl (Trazodone Hcl 50 Mg Tablet) 50 mg PO BEDTIME PRN PRN Reason: Insomnia Home Medications Medication Instructions Recorded Confirmed Type aspirin 81 mg tablet 81 mg PO DAILY 02/11/21 02/18/21 History clopidogrel 75 mg tablet 75 mg PO DAILY 02/11/21 02/18/21 History ezetimibe 10 mg tablet 10 mg PO DAILY 02/11/21 02/18/21 History losartan 100 mg tablet 100 mg PO DAILY 02/11/21 02/18/21 History melatonin 3 mg tablet 1 tab PO BEDTIME PRN 02/11/21 02/18/21 History metoprolol succinate 25 mg 25 mg PO DAILY 02/11/21 02/18/21 History tablet,extended release 24 hr timolol maleate 0.5 % eye drops 1 drp OPHTHALMIC-RIGHT DAILY 02/11/21 02/18/21 History Allergies Allergy/AdvReac Type Severity Reaction Status Date / Time melons Allergy Unknown throat Uncoded 08/13/11 00:00 sweling Physical Exam Vital signs: Vital Signs Temp 98.1 F 03/02/21 06:00 Pulse 110 H 03/02/21 08:01 Resp 16 03/02/21 06:00 BP 176/79 H 03/02/21 08:01 Pulse Ox 94 03/02/21 06:00 Weight 48.1 kg - Constitutional Present: no acute distress - Routine HEENT Exam Head: Present: atraumatic, normal inspection - Routine Neck Exam Present: supple - Routine Respiratory Exam Present: decreased breath sounds - Routine Cardiovascular Exam Cardiovascular: Present: RRR - Routine Abdominal Exam Present: diminished bowel sounds - Routine Skin Exam Present: intact - Routine Neurological Exam Present: alert, oriented X3 Hem/Onc Consult Result - Labs CBC & Chem 7: 02/28/21 21:37 12/17/21 19:44 Assessment and Plan Patient Active problem list reviewed?: Yes (1) Acute DVT (deep venous thrombosis) Status: Acute Assessment and plan: Recommend lovenox of three days then either warfarin or eliquis. A thrombophilia evaluation is pending. - Time Spent With Patient Time Spent with Patient (in minutes): 25
[2021-03-02] MEDS: Throat Lozenge, Medicated LOZENGE 1 LOZENGE MUCOUS MEM ×3 (16:26→20:55)
[2021-03-02] MEDS: OLANZapine 5 MG TABLET PO (20:56)
[2021-03-02] MEDS: Mirtazapine 15 MG TABLET PO (20:56)
[2021-03-02 21:47] VITALS: BP 153/74; PULSE 102; RESP 19; TEMP 37.3; O2SAT 98
[2021-03-03 06:00] VITALS: BP 159/79; PULSE 100; TEMP 37; O2SAT 97
[2021-03-03 09:31] VITALS: BP 159/79; PULSE 100
[2021-03-03] MEDS: Losartan Potassium 50 MG TABLET 100 MG PO (09:31)
[2021-03-03] MEDS: Clopidogrel Bisulfate 75 MG TABLET PO (09:31)
[2021-03-03 09:32] VITALS: BP 159/79; PULSE 100
[2021-03-03] MEDS: Metoprolol Succinate ER 25 MG TAB.ER.24H PO (09:32)
[2021-03-03] MEDS: Aspirin 81 MG TAB.CHEW PO (09:32)
[2021-03-03] MEDS: Ezetimibe 10 MG TABLET PO (09:32)
[2021-03-03 09:33] VITALS: BP 159/79; PULSE 100
[2021-03-03] MEDS: lisinopriL 5 MG TABLET PO (09:33)
[2021-03-03] MEDS: clonazePAM 0.5 MG TABLET 0.25 MG PO ×3 (09:33→20:02)
[2021-03-03] MEDS: Enoxaparin Sodium 60 MG/0.6 ML SYRINGE 50 MG SUBCUT ×2 (10:32→20:02)
[2021-03-03] MEDS: timoloL maleate 0.5 % Oph Sol 5 ML DRBTL 1 DROP EYE-RIGHT (10:32)
[2021-03-03] MEDS: Mineral Oil/Petrolatum,White 106 GM Tube 1 APPL TOPICAL ×2 (10:32→20:04)
[2021-03-03] MEDS: Throat Lozenge, Medicated LOZENGE 1 LOZENGE MUCOUS MEM (14:35)
--- NOTE | 2021-03-03 14:56 | MHC.CLN ---
Addendum entered by Sandy Márquez, RD 03/03/21 14:59: CONTINUES WITH STAGE II WOUND TO SACRUM. Original Note: F/U SHOWS MODERATE, FAVORABLE WEIGHT GAIN SINCE ADMISSION. INTAKE VARIABLE. DIET CONTINUES REGULAR, 1500 ML FLUID RESTRICTION. CONTINUE. ENSURE BID (700 KCAL/26 G PROTEIN).
--- NOTE | 2021-03-03 17:36 | HO.PSYCHPN ---
Subjective Subjective Date of Service: 03/03/21 Reason For Visit: Anxiety Disorder Interim History: I evaluated the pt this afternoon and upon interview she reports im weepy, i cant talk to anyone on the phone normally, they took my phone away. Says she has two friends she would really want to talk to, however she is redirectable and says im gonna get over this. Pt is looking forward to getting hearing aids Wednesday. Says I got a little cold now. its just never ending, has sx of rhinitis, cough. She reports sleep is good, sleeping through the night. On lovenox now due to PE on 02/28, no complaints. Overall, says her anxiety is improved, im just nervous because I dont have my phone and I want to talk to my friends, when im here theres no one to talk to except the workers. No questions or concerns. Wants to discharge prior to Kaylie. Mental Status Exam Mental Status Exam Narrative: Appearance: thin, ambulating with walker, casually groomed, fair hygiene in NAD Behavior: cooperative, calm, engaged psychomotor: no agitation or retardation noted. Speech: clear, normal rate, soft tone, spontaneous Thought process: repetitive Thought content: less perseveration, increasingly goal oriented Mood: nervous Affect: congruent, less dysphoric SI:none HI:none VH/AH:none Delusions: some mistrustfulness but reality based Insight/judgment:impaired x 2. Memory/cog: alert, oriented to year, month, place not situation. Needs moca. Diagnostics Vital Signs (24Hr): Vital Signs - 24 hr 03/02/21 21:47 03/03/21 06:00 03/03/21 09:31 Temperature 99.1 F 98.6 F Pulse Rate 102 H 100 100 Respiratory Rate 19 Blood Pressure 153/74 H 159/79 H 159/79 H Pulse Oximetry 98 97 03/03/21 09:32 03/03/21 09:33 Temperature Pulse Rate 100 100 Respiratory Rate Blood Pressure 159/79 H 159/79 H Pulse Oximetry BMI result Body Mass Index 20.0 Labs Results: 03/04/21 12:59 03/04/21 12:59 Labs: Laboratory Results - last 48 hr 03/01/21 03/02/21 03/02/21 21:31 13:03 13:03 PT 10.1 INR 0.9 LA PTT Screen Cancelled LA Thrombin Time Cancelled dRVV Screen Cancelled dRVVT Confirm Interp Cancelled dRVVT Mixing Study Cancelled dRVVT Mix Interpret Cancelled Hexagon Phase Neutraliz Cancelled Lupus Anticoag Interp Cancelled Protein C Antigen Cancelled Protein C Activity Cancelled Protein S Activity Cancelled Total Protein S Ag Cancelled Free Protein S Antigen Cancelled Antithrombin III Ag Cancelled Antithrombin III Activ Homocysteine Prothrombin [id number] Mut Cancelled Prothrombin Mut Interp Cancelled 03/02/21 03/02/21 13:03 13:03 PT INR LA PTT Screen LA Thrombin Time dRVV Screen dRVVT Confirm Interp dRVVT Mixing Study dRVVT Mix Interpret Hexagon Phase Neutraliz Lupus Anticoag Interp Protein C Antigen Protein C Activity Protein S Activity Total Protein S Ag Free Protein S Antigen Antithrombin III Ag Cancelled Antithrombin III Activ Cancelled Homocysteine 8.0 Prothrombin [id number] Mut Prothrombin Mut Interp Imaging Radiology Impressions: ITS Impressions Head CT 02/19/21 08:57 IMPRESSION: No acute findings. Mild generalized atrophy and nonspecific periventricular white matter disease. 1 cm lucent lesion in the left parietal bone. Brain MRI 02/19/21 17:28 IMPRESSION: 1. No acute intracranial abnormalities. 2. Mild to moderate underlying microangiopathy. 3. Qualitatively, there is moderate generalized cerebral volume loss. Quantitative analysis of the NeuroQuant series will be postprocessed with findings dictated as an addendum. Brain MRI 02/19/21 17:56 IMPRESSION: 1. No acute intracranial abnormalities. 2. Mild to moderate underlying microangiopathy. 3. Qualitatively, there is moderate generalized cerebral volume loss. Quantitative analysis of the NeuroQuant series will be postprocessed with findings dictated as an addendum. Venous Duplex 02/28/21 20:42 IMPRESSION: There is deep vein thrombosis involving peroneal and posterior tibial veins of the calf. However, no evidence of thrombosis within the popliteal or femoral veins. Note: We have been attempting to provide a direct [id number] communication of test results. Contact was made. The critical test result was discussed with Dr. Lynn at 9:50 PM on 02/28/2021 and it was ascertained that the content and the importance of the findings was understood at the time of the direct communication. Head CT 02/28/21 21:30 IMPRESSION: No acute intracranial pathology. Medications Medications Current Medications Acetaminophen (Acetaminophen 325 Mg Tablet) 650 mg PO Q6H PRN PRN Reason: Pain, Mild (Pain Scale 1-3) Last Admin: 02/26/21 20:37 Dose: 650 mg Documented by: Al Hydroxide/Mg Hydroxide (Magnesium Hydrox/Alum Hydrox 30 Ml Oral.Susp) 30 ml PO Q6H PRN PRN Reason: Heartburn/Nausea Aspirin (Aspirin 81 Mg Tab.Chew) 81 mg PO DAILY [facility] Last Admin: 03/03/21 09:32 Dose: 81 mg Documented by: Benzocaine (Throat Lozenge, Medicated Lozenge) 1 lozenge MUCOUS MEM Q2H PRN PRN Reason: Sore Throat Last Admin: 03/03/21 14:35 Dose: 1 lozenge Documented by: Clonazepam (Clonazepam 0.5 Mg Tablet) 0.25 mg PO TID [facility] Last Admin: 03/03/21 14:34 Dose: 0.25 mg Documented by: Clopidogrel Bisulfate (Clopidogrel Bisulfate 75 Mg Tablet) 75 mg PO DAILY [facility] Last Admin: 03/03/21 09:31 Dose: 75 mg Documented by: Docusate Sodium (Docusate Sodium 100 Mg Capsule) 100 mg PO DAILY PRN PRN Reason: Constipation Last Admin: 02/28/21 09:34 Dose: 100 mg Documented by: Ezetimibe (Ezetimibe 10 Mg Tablet) 10 mg PO DAILY [facility] Last Admin: 03/03/21 09:32 Dose: 10 mg Documented by: Enoxaparin Sodium (Enoxaparin Sodium 60 Mg/0.6 Ml Syringe) 50 mg 1 mg/kg (50 mg) SUBCUT Q12H [facility] Last Admin: 03/03/21 10:32 Dose: 50 mg Documented by: Ibuprofen (Ibuprofen 600 Mg Tablet) 600 mg PO Q8H PRN PRN Reason: Pain, Moderate (Pain Scale 4-6 Last Admin: 02/27/21 20:07 Dose: 600 mg Documented by: Lisinopril (Lisinopril 5 Mg Tablet) 5 mg PO DAILY [facility]; Protocol Last Admin: 03/03/21 09:33 Dose: 5 mg Documented by: Losartan Potassium (Losartan Potassium 50 Mg Tablet) 100 mg PO DAILY [facility]; Protocol Last Admin: 03/03/21 09:31 Dose: 100 mg Documented by: Magnesium Hydroxide (Milk Of Magnesia 30 Ml Oral.Susp) 30 ml PO DAILY PRN PRN Reason: Constipation Last Admin: 02/28/21 09:33 Dose: 30 ml Documented by: Melatonin (Melatonin 3 Mg Tablet) 3 mg PO BEDTIME PRN PRN Reason: insomnia Last Admin: 02/20/21 20:01 Dose: 3 mg Documented by: Metoprolol Succinate (Metoprolol Succinate Er 25 Mg Tab.Er.24h) 25 mg PO DAILY [facility]; Protocol Last Admin: 03/03/21 09:32 Dose: 25 mg Documented by: Mirtazapine (Mirtazapine 15 Mg Tablet) 15 mg PO BEDTIME [facility] Last Admin: 03/02/21 20:56 Dose: 15 mg Documented by: Multi-Ingred Cream/Lotion/Oil/Oint (Mineral Oil/Petrolatum,White 106 Gm Tube) 1 appl TOPICAL BID [facility] Last Admin: 03/03/21 10:32 Dose: 1 appl Documented by: Patient Own Med ( Fish Oil 1200mg Caps ) 2 each PO DAILY [facility] Last Admin: 03/03/21 10:32 Dose: 2 each Documented by: Olanzapine (Olanzapine 2.5 Mg Tablet) 2.5 mg PO Q6H PRN PRN Reason: agitation, anxiety Last Admin: 02/23/21 04:40 Dose: 2.5 mg Documented by: Olanzapine (Olanzapine 5 Mg Tablet) 5 mg PO BEDTIME [facility] Last Admin: 03/02/21 20:56 Dose: 5 mg Documented by: Pharmacy Consult (Consult Rx Perform Med Rec) 1 each MISCELLANE ONCE PRN PRN Reason: Consult order Timolol Maleate (Timolol Maleate 0.5 % Oph Cathryn 5 Ml Drbtl) 1 drop EYE-RIGHT DAILY [facility] Last Admin: 03/03/21 10:32 Dose: 1 drop Documented by: Trazodone HCl (Trazodone Hcl 50 Mg Tablet) 50 mg PO BEDTIME PRN PRN Reason: Insomnia Allergies Allergies Allergy/AdvReac Type Severity Reaction Status Date / Time melons Allergy Unknown throat Uncoded 08/13/11 00:00 sweling Assessment & Plan Assessment & Plan (1) Acute DVT (deep venous thrombosis): Status: Acute Code(s): I82.409 - Acute embolism and thrombosis of unspecified deep veins of unspecified lower extremity Assessment and Plan: 80 yo F who is currently being treated for anxiety at [facility], has now developed right lower extremity edema, found to have DVT # acute DVT - most likely 2/2 hospitalization - no evidence of respiratory abnormality or PE - will start of therapeutic Lovenox - consult hematology for anticoagulation # Reported AMS - no evidence of AMS on my exam, pt alert oriented x3 - Head CT negative - monitor mentation - continue psych meds per U Plan Continue with psychiatric medications. 03/03: no medication changes, will order rapid COVID test due to cold sx Continue follow-up by Medicine I spent minutes with the patient and/or on the patient floor today, greater than?50% of which was spent counseling/coordinating care. Reason for contiued inpatient stay Substantial Risk for: inability to function, rapid decompensation and med/psych decompensation
[2021-03-03 19:06] LABS: COVID-19 Test Positive (Negative); IDNOW Serial# 55D5AD1C
[2021-03-03 19:53] VITALS: BP 166/77; PULSE 103; RESP 20; TEMP 36.9; O2SAT 98
[2021-03-03] MEDS: Mirtazapine 15 MG TABLET PO (20:02)
[2021-03-03] MEDS: OLANZapine 5 MG TABLET PO (20:02)
[2021-03-04] MEDS: Enoxaparin Sodium 60 MG/0.6 ML SYRINGE 50 MG SUBCUT (10:29)
[2021-03-04 10:30] VITALS: BP 129/59; PULSE 100
[2021-03-04] MEDS: lisinopriL 5 MG TABLET PO (10:30)
[2021-03-04] MEDS: clonazePAM 0.5 MG TABLET 0.25 MG PO ×2 (10:33→20:09)
[2021-03-04] MEDS: Losartan Potassium 50 MG TABLET 100 MG PO (10:33)
[2021-03-04] MEDS: Metoprolol Succinate ER 25 MG TAB.ER.24H PO (10:33)
[2021-03-04] MEDS: Clopidogrel Bisulfate 75 MG TABLET PO (10:33)
[2021-03-04] MEDS: Ezetimibe 10 MG TABLET PO (10:34)
[2021-03-04] MEDS: Mineral Oil/Petrolatum,White 106 GM Tube 1 APPL TOPICAL ×2 (10:35→20:11)
[2021-03-04] MEDS: timoloL maleate 0.5 % Oph Sol 5 ML DRBTL 1 DROP EYE-RIGHT (10:35)
[2021-03-04] MEDS: Aspirin 81 MG TAB.CHEW PO (10:35)
--- NOTE | 2021-03-04 11:11 | P.PNPSI_ITS ---
Subjective Subjective Date of Service: 03/04/21 Reason For Visit: Anxiety Disorder Subjective Notes: Conditional Voluntary Interim History: Pt in room, isolated due to positive covid test on 03/04/20- pt currently presents with dry cough, sore throat, afebrile, o2sat 95% on RA, RR 18. Pt expresses frustration as she was looking forward to spend [place] with family but can't do it not that she is positive for covid. Pt reports she slept well. She says poor appetite but denies changes in smell or taste. She denies SI/HI. She reports feeling less anxious overall but now upset about new dx of covid. Medication Compliance: Yes Side effects from medications: No Review of Systems Review of Systems Yes all other systems are reviewed and are negative Constitutional: Reports anorexia Reports system reviewed and no additional complaints, except as documented Cardiovascular: Reports claudication Respiratory: Reports other Gastrointestinal: Reports other Mental Status Exam Mental Status Exam Narrative: Appearance: thin, ambulating with walker, casually groomed, fair hygiene in NAD Behavior: cooperative upset about being in hospital psychomotor:no agitation or retardation noted. 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 Mood: upset Affect: congruent, less dysphoric SI:none HI:none VH/AH:none Delusions:pt refers to they are taking everything away but can't explain who she is referring to Insight/judgment:impaired x 2. Memory/cog: alert, oriented to year, month, place not situation. Needs moca. Diagnostics Vital Signs (24Hr): Vital Signs - 24 hr 03/03/21 19:53 03/04/21 10:30 Temperature 98.4 F Pulse Rate 103 H 100 Respiratory Rate 20 Blood Pressure 166/77 H 129/59 L Pulse Oximetry 98 BMI result Body Mass Index 20.0 Labs Results: 02/28/21 21:37 02/28/21 19:44 Labs: Laboratory Results - last 48 hr 03/02/21 03/02/21 03/02/21 13:03 13:03 13:03 LA PTT Screen Cancelled LA Thrombin Time Cancelled dRVV Screen Cancelled dRVVT Confirm Interp Cancelled dRVVT Mixing Study Cancelled dRVVT Mix Interpret Cancelled Hexagon Phase Neutraliz Cancelled Lupus Anticoag Interp Cancelled Protein C Antigen Cancelled Protein C Activity Cancelled Protein S Activity Cancelled Total Protein S Ag Cancelled Free Protein S Antigen Cancelled Antithrombin III Ag Cancelled Cancelled Antithrombin III Activ Cancelled Homocysteine COVID-19 (INGA) COVID-19 Clin Com Prothrombin [id number] Mut Cancelled Prothrombin Mut Interp Cancelled 03/02/21 03/03/21 13:03 18:35 LA PTT Screen LA Thrombin Time dRVV Screen dRVVT Confirm Interp dRVVT Mixing Study dRVVT Mix Interpret Hexagon Phase Neutraliz Lupus Anticoag Interp Protein C Antigen Protein C Activity Protein S Activity Total Protein S Ag Free Protein S Antigen Antithrombin III Ag Antithrombin III Activ Homocysteine 8.0 COVID-19 (INGA) Positive A COVID-19 Clin Com See Note Prothrombin [id number] Mut Prothrombin Mut Interp Imaging Radiology Impressions: ITS Impressions Head CT 02/19/21 08:57 IMPRESSION: No acute findings. Mild generalized atrophy and nonspecific periventricular white matter disease. 1 cm lucent lesion in the left parietal bone. Brain MRI 02/19/21 17:28 IMPRESSION: 1. No acute intracranial abnormalities. 2. Mild to moderate underlying microangiopathy. 3. Qualitatively, there is moderate generalized cerebral volume loss. Quantitative analysis of the NeuroQuant series will be postprocessed with findings dictated as an addendum. Brain MRI 02/19/21 17:56 IMPRESSION: 1. No acute intracranial abnormalities. 2. Mild to moderate underlying microangiopathy. 3. Qualitatively, there is moderate generalized cerebral volume loss. Quantitative analysis of the NeuroQuant series will be postprocessed with findings dictated as an addendum. Venous Duplex 02/28/21 20:42 IMPRESSION: There is deep vein thrombosis involving peroneal and posterior tibial veins of the calf. However, no evidence of thrombosis within the popliteal or femoral veins. Note: We have been attempting to provide a direct [id number]-fpfwrchhy communication of test results. Contact was made. The critical test result was discussed with Dr. Lynn at 9:50 PM on 02/28/2021 and it was ascertained that the content and the importance of the findings was understood at the time of the direct communication. Head CT 02/28/21 21:30 IMPRESSION: No acute intracranial pathology. Medications Medications Current Medications Acetaminophen (Acetaminophen 325 Mg Tablet) 650 mg PO Q6H PRN PRN Reason: Pain, Mild (Pain Scale 1-3) Last Admin: 02/26/21 20:37 Dose: 650 mg Documented by: Al Hydroxide/Mg Hydroxide (Magnesium Hydrox/Alum Hydrox 30 Ml Oral.Susp) 30 ml PO Q6H PRN PRN Reason: Heartburn/Nausea Aspirin (Aspirin 81 Mg Tab.Chew) 81 mg PO DAILY [facility] Last Admin: 03/04/21 10:35 Dose: 81 mg Documented by: Benzocaine (Throat Lozenge, Medicated Lozenge) 1 lozenge MUCOUS MEM Q2H PRN PRN Reason: Sore Throat Last Admin: 03/03/21 14:35 Dose: 1 lozenge Documented by: Clonazepam (Clonazepam 0.5 Mg Tablet) 0.25 mg PO TID [facility] Last Admin: 03/04/21 10:33 Dose: 0.25 mg Documented by: Clopidogrel Bisulfate (Clopidogrel Bisulfate 75 Mg Tablet) 75 mg PO DAILY [facility] Last Admin: 03/04/21 10:33 Dose: 75 mg Documented by: Docusate Sodium (Docusate Sodium 100 Mg Capsule) 100 mg PO DAILY PRN PRN Reason: Constipation Last Admin: 02/28/21 09:34 Dose: 100 mg Documented by: Ezetimibe (Ezetimibe 10 Mg Tablet) 10 mg PO DAILY [facility] Last Admin: 03/04/21 10:34 Dose: 10 mg Documented by: Enoxaparin Sodium (Enoxaparin Sodium 60 Mg/0.6 Ml Syringe) 50 mg 1 mg/kg (50 mg) SUBCUT Q12H [facility] Last Admin: 03/04/21 10:29 Dose: 50 mg Documented by: Ibuprofen (Ibuprofen 600 Mg Tablet) 600 mg PO Q8H PRN PRN Reason: Pain, Moderate (Pain Scale 4-6 Last Admin: 02/27/21 20:07 Dose: 600 mg Documented by: Lisinopril (Lisinopril 5 Mg Tablet) 5 mg PO DAILY [facility]; Protocol Last Admin: 03/04/21 10:30 Dose: 5 mg Documented by: Losartan Potassium (Losartan Potassium 50 Mg Tablet) 100 mg PO DAILY [facility]; Pr otocol Last Admin: 03/04/21 10:33 Dose: 100 mg Documented by: Magnesium Hydroxide (Milk Of Magnesia 30 Ml Oral.Susp) 30 ml PO DAILY PRN PRN Reason: Constipation Last Admin: 02/28/21 09:33 Dose: 30 ml Documented by: Melatonin (Melatonin 3 Mg Tablet) 3 mg PO BEDTIME PRN PRN Reason: insomnia Last Admin: 02/20/21 20:01 Dose: 3 mg Documented by: Metoprolol Succinate (Metoprolol Succinate Er 25 Mg Tab.Er.24h) 25 mg PO DAILY [facility]; Protocol Last Admin: 03/04/21 10:33 Dose: 25 mg Documented by: Mirtazapine (Mirtazapine 15 Mg Tablet) 15 mg PO BEDTIME [facility] Last Admin: 03/03/21 20:02 Dose: 15 mg Documented by: Multi-Ingred Cream/Lotion/Oil/Oint (Mineral Oil/Petrolatum,White 106 Gm Tube) 1 appl TOPICAL BID [facility] Last Admin: 03/04/21 10:35 Dose: 1 appl Documented by: Patient Own Med ( Fish Oil 1200mg Caps ) 2 each PO DAILY [facility] Last Admin: 03/04/21 10:35 Dose: 2 each Documented by: Olanzapine (Olanzapine 2.5 Mg Tablet) 2.5 mg PO Q6H PRN PRN Reason: agitation, anxiety Last Admin: 02/23/21 04:40 Dose: 2.5 mg Documented by: Olanzapine (Olanzapine 5 Mg Tablet) 5 mg PO BEDTIME [facility] Last Admin: 03/03/21 20:02 Dose: 5 mg Documented by: Pharmacy Consult (Consult Rx Perform Med Rec) 1 each MISCELLANE ONCE PRN PRN Reason: Consult order Timolol Maleate (Timolol Maleate 0.5 % Oph Cathryn 5 Ml Drbtl) 1 drop EYE-RIGHT DAILY [facility] Last Admin: 03/04/21 10:35 Dose: 1 drop Documented by: Trazodone HCl (Trazodone Hcl 50 Mg Tablet) 50 mg PO BEDTIME PRN PRN Reason: Insomnia Allergies Allergies Allergy/AdvReac Type Severity Reaction Status Date / Time melons Allergy Unknown throat Uncoded 08/13/11 00:00 sweling Assessment & Plan Assessment & Plan (1) Acute DVT (deep venous thrombosis): Status: Acute Code(s): I82.409 - Acute embolism and thrombosis of unspecified deep veins of unspecified lower extremity (2) Psychosis: Status: Acute Code(s): F29 - Unspecified psychosis not due to a substance or known physiological condition Assessment and Plan: 80 yo F who is currently being treated for anxiety at [facility], has now developed right lower extremity edema, found to have DVT # acute DVT - most likely 2/2 hospitalization - no evidence of respiratory abnormality or PE - will start of therapeutic Lovenox - consult hematology for anticoagulation # Reported AMS - no evidence of AMS on my exam, pt alert oriented x3 - Head CT negative - monitor mentation - continue psych meds per [facility] PLAN 03/04- continue current medications, added cbc, cmp, continue to monitor VS, O2 sat/RR TID. No SOB, O2 sat 95% on room air. I spent minutes with the patient and/or on the patient floor today, greater than?50% of which was spent counseling/coordinating care. Reason for contiued inpatient stay Substantial Risk for: inability to function
[2021-03-04 13:00] LABS: MANUAL DIFF FLAG NO
[2021-03-04 13:21] LABS: Basophils Percent Auto 0.4 % (0-2); Eosinophils Absolute Auto 0.1 X10*3/uL (0.0-0.4); Eosinophils Percent Auto 1.4 % (0-4); Hematocrit 31.7 % (37.0-47.0); Hemoglobin 10.2 g/dl (12.0-16.0); Imm Gran Abs Auto 0.04 X10*3/uL (0.00-0.03); Imm Gran Pct Auto 0.5 % (0.0-0.4); Lymphocytes Absolute Auto 1.6 X10*3/uL (1.2-4.9); Lymphocytes Percent Auto 21.6 % (20-40); Mean Corpuscular HGB Conc 32.2 g/dl (31.0-35.0); Mean Corpuscular Volume 96.4 fL (80.0-98.0); Mean Platelet Volume 8.6 fL (9.4-12.3); Monocytes Absolute Auto 0.6 X10*3/uL (0.1-1.2); Monocytes Percent Auto 7.2 % (2-11); Neutrophils Absolute Auto 5.2 x10*3/uL (2.0-8.3); Neutrophils Percent Auto 68.9 % (45-73); Platelet Count 452 X10*3/uL (160-400); Red Blood Count 3.29 X10*6/uL (4.20-5.50); Red Cell Distribution Width 13.7 % (11.0-16.0); White Blood Count 7.6 X10*3/uL (4.8-10.8)
[2021-03-04 13:25] VITALS: BP 144/65; PULSE 105; RESP 18; TEMP 36.7; O2SAT 97
[2021-03-04 13:30] LABS: Alanine Aminotransferase 33 U/L (0-31); Albumin Level 3.7 g/dL (3.5-5.0); Alkaline Phosphatase 97 U/L (39-117); Anion Gap 12 (12-20); Aspartate Amino Transferase 32 U/L (5-31); Bilirubin Total 0.2 mg/dL (0.0-1.0); Blood Urea Nitrogen 13 mg/dL (9-16); Calcium 9.3 mg/dL (8.4-10.2); Carbon Dioxide 28 mmol/L (22-29); Chloride 102 mmol/L (96-108); Creatinine Clr Calc Pharmacy 47.1; Estimated Glomerular Filt Rate > 60; Glucose Random 145 mg/dL (60-115); Potassium 4.1 mmol/L (3.3-5.1); Sodium 138 mmol/L (135-145); Total Protein 6.2 g/dL (6.5-8.0)
[2021-03-04 18:00] VITALS: BP 160/70; PULSE 94; RESP 16; TEMP 36.6; O2SAT 97
[2021-03-04] MEDS: Throat Lozenge, Medicated LOZENGE 1 LOZENGE MUCOUS MEM (18:00)
[2021-03-04] MEDS: OLANZapine 5 MG TABLET PO (20:08)
[2021-03-04] MEDS: Mirtazapine 15 MG TABLET PO (20:08)
[2021-03-04] MEDS: Apixaban 5 MG TABLET PO (21:36)
[2021-03-05 05:58] VITALS: BP 162/82; PULSE 66; RESP 16; TEMP 36.2; O2SAT 94
[2021-03-05 08:55] VITALS: BP 142/66; PULSE 92
[2021-03-05] MEDS: Ezetimibe 10 MG TABLET PO (08:55)
[2021-03-05] MEDS: Metoprolol Succinate ER 25 MG TAB.ER.24H PO (08:55)
[2021-03-05] MEDS: Clopidogrel Bisulfate 75 MG TABLET PO (08:55)
[2021-03-05] MEDS: Losartan Potassium 50 MG TABLET 100 MG PO (08:55)
[2021-03-05] MEDS: Apixaban 5 MG TABLET PO ×2 (08:56→20:58)
[2021-03-05] MEDS: clonazePAM 0.5 MG TABLET 0.25 MG PO ×2 (08:56→20:59)
[2021-03-05 08:57] VITALS: BP 142/66; PULSE 92
[2021-03-05] MEDS: Aspirin 81 MG TAB.CHEW PO (08:57)
[2021-03-05] MEDS: Mineral Oil/Petrolatum,White 106 GM Tube 1 APPL TOPICAL ×2 (08:57→21:00)
[2021-03-05] MEDS: timoloL maleate 0.5 % Oph Sol 5 ML DRBTL 1 DROP EYE-RIGHT (08:57)
[2021-03-05] MEDS: lisinopriL 5 MG TABLET PO (08:57)
--- NOTE | 2021-03-05 13:18 | P.PNPSI_ITS ---
Subjective Subjective Date of Service: 03/05/21 Reason For Visit: Anxiety Disorder Subjective Notes: Conditional Voluntary Interim History: Pt in room, isolated due to positive covid test on 03/04/20- pt currently presents intermittent but mild dry cough, sore throat, afebrile, o2sat 96% on RA, RR 16. Pt expresses frustration as she was looking forward to spend [place] with family but can't do it not that she is positive for covid. Pt reports she slept well. She says poor appetite but denies changes in smell or taste. She denies SI/HI. She reports feeling less anxious overall but now upset about new dx of covid. Pt somewhat anxious about having to stay in her room and not being able to spend holidays with family. Daughter, HCP, updated on pt's condition. Medication Compliance: Yes Side effects from medications: No Attending Groups: No Review of Systems Acute medical concerns: Yes positive covid, monitor exacerbation of respiratory status and other complications. pt stable. Review of Systems Review of Systems Yes all other systems are reviewed and are negative Constitutional: Reports anorexia Reports system reviewed and no additional complaints, except as documented Cardiovascular: Reports claudication Respiratory: Reports other Gastrointestinal: Reports other Mental Status Exam Mental Status Exam Narrative: Appearance: thin, ambulating with walker, casually groomed, fair hygiene in NAD Behavior: cooperative upset about being in hospital psychomotor:no agitation or retardation noted. 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 Mood: upset Affect: congruent, less dysphoric SI:none HI:none VH/AH:none Delusions:pt refers to they are taking everything away but can't explain who she is referring to Insight/judgment:impaired x 2. Memory/cog: alert, oriented to year, month, place not situation. Needs moca. Diagnostics Vital Signs (24Hr): Vital Signs - 24 hr 03/04/21 13:25 03/04/21 18:00 03/05/21 05:58 Temperature 98.0 F 97.8 F 97.2 F Pulse Rate 105 H 94 66 Respiratory Rate 18 16 16 Blood Pressure 144/65 H 160/70 H 162/82 H Pulse Oximetry 97 97 94 03/05/21 08:55 03/05/21 08:57 Temperature Pulse Rate 92 92 Respiratory Rate Blood Pressure 142/66 H 142/66 H Pulse Oximetry BMI result Body Mass Index 20.0 Labs Results: 03/04/21 12:59 03/04/21 12:59 Labs: Laboratory Results - last 48 hr 03/02/21 03/02/21 03/02/21 13:03 13:03 13:03 WBC RBC Hgb Hct MCV MCH MCHC RDW Plt Count MPV Immature Gran % (Auto) Neut % (Auto) Lymph % (Auto) [place] % (Auto) Eos % (Auto) Baso % (Auto) Lymph # (Auto) [place] # (Auto) Eos # (Auto) Baso # (Auto) Abs Immat Gran (auto) Absolute Neuts (auto) Absolute Nucleated RBC Nucleated RBC % (auto) LA PTT Screen Cancelled LA Thrombin Time Cancelled dRVV Screen Cancelled dRVVT Confirm Interp Cancelled dRVVT Mixing Study Cancelled dRVVT Mix Interpret Cancelled Hexagon Phase Neutraliz Cancelled Lupus Anticoag Interp Cancelled Protein C Antigen Cancelled Protein C Activity Cancelled Protein S Activity Cancelled Total Protein S Ag Cancelled Free Protein S Antigen Cancelled Antithrombin III Ag Cancelled Cancelled Antithrombin III Activ Cancelled Sodium Potassium Chloride Carbon Dioxide Anion Gap BUN Creatinine Estim Creat Clear Calc Estimated GFR Random Glucose Calcium Total Bilirubin AST ALT Alkaline Phosphatase Total Protein Albumin Homocysteine COVID-19 (INGA) COVID-19 Clin Com Prothrombin [id number] Mut Cancelled Prothrombin Mut Interp Cancelled 03/02/21 03/03/21 03/04/21 13:03 18:35 12:59 WBC 7.6 RBC 3.29 L Hgb 10.2 L Hct 31.7 L MCV 96.4 MCH 31.0 MCHC 32.2 RDW 13.7 Plt Count 452 H MPV 8.6 L Immature Gran % (Auto) 0.5 H Neut % (Auto) 68.9 Lymph % (Auto) 21.6 [place] % (Auto) 7.2 Eos % (Auto) 1.4 Baso % (Auto) 0.4 Lymph # (Auto) 1.6 [place] # (Auto) 0.6 Eos # (Auto) 0.1 Baso # (Auto) 0.0 Abs Immat Gran (auto) 0.04 H Absolute Neuts (auto) 5.2 Absolute Nucleated RBC 0.000 Nucleated RBC % (auto) 0.0 LA PTT Screen LA Thrombin Time dRVV Screen dRVVT Confirm Interp dRVVT Mixing Study dRVVT Mix Interpret Hexagon Phase Neutraliz Lupus Anticoag Interp Protein C Antigen Protein C Activity Protein S Activity Total Protein S Ag Free Protein S Antigen Antithrombin III Ag Antithrombin III Activ Sodium Potassium Chloride Carbon Dioxide Anion Gap BUN Creatinine Estim Creat Clear Calc Estimated GFR Random Glucose Calcium Total Bilirubin AST ALT Alkaline Phosphatase Total Protein Albumin Homocysteine 8.0 COVID-19 (INGA) Positive A COVID-19 Clin Com See Note Prothrombin [id number] Mut Prothrombin Mut Interp 03/04/21 12:59 WBC RBC Hgb Hct MCV MCH MCHC RDW Plt Count MPV Immature Gran % (Auto) Neut % (Auto) Lymph % (Auto) [place] % (Auto) Eos % (Auto) Baso % (Auto) Lymph # (Auto) [place] # (Auto) Eos # (Auto) Baso # (Auto) Abs Immat Gran (auto) Absolute Neuts (auto) Absolute Nucleated RBC Nucleated RBC % (auto) LA PTT Screen LA Thrombin Time dRVV Screen dRVVT Confirm Interp dRVVT Mixing Study dRVVT Mix Interpret Hexagon Phase Neutraliz Lupus Anticoag Interp Protein C Antigen Protein C Activity Protein S Activity Total Protein S Ag Free Protein S Antigen Antithrombin III Ag Antithrombin III Activ Sodium 138 Potassium 4.1 Chloride 102 Carbon Dioxide 28 Anion Gap 12 BUN 13 Creatinine 0.73 Estim Creat Clear Calc 47.1 Estimated GFR > 60 Random Glucose 145 H Calcium 9.3 Total Bilirubin 0.2 AST 32 H D ALT 33 H Alkaline Phosphatase 97 Total Protein 6.2 L Albumin 3.7 Homocysteine COVID-19 (INGA) COVID-19 Clin Com Prothrombin [id number] Mut Prothrombin Mut Interp Imaging Radiology Impressions: ITS Impressions Head CT 02/19/21 08:57 IMPRESSION: No acute findings. Mild generalized atrophy and nonspecific periventricular white matter disease. 1 cm lucent lesion in the left parietal bone. Brain MRI 02/19/21 17:28 IMPRESSION: 1. No acute intracranial abnormalities. 2. Mild to moderate underlying microangiopathy. 3. Qualitatively, there is moderate generalized cerebral volume loss. Quantitative analysis of the NeuroQuant series will be postprocessed with findings dictated as an addendum. Brain MRI 02/19/21 17:56 IMPRESSION: 1. No acute intracranial abnormalities. 2. Mild to moderate underlying microangiopathy. 3. Qualitatively, there is moderate generalized cerebral volume loss. Quantitative analysis of the NeuroQuant series will be postprocessed with findings dictated as an addendum. Venous Duplex 02/28/21 20:42 IMPRESSION: There is deep vein thrombosis involving peroneal and posterior tibial veins of the calf. However, no evidence of thrombosis within the popliteal or femoral veins. Note: We have been attempting to provide a direct [id number] communication of test results. Contact was made. The critical test result was discussed with Dr. Lynn at 9:50 PM on 02/28/2021 and it was ascertained that the content and the importance of the findings was understood at the time of the direct communication. Head CT 02/28/21 21:30 IMPRESSION: No acute intracranial pathology. Medications Medications Current Medications Acetaminophen (Acetaminophen 325 Mg Tablet) 650 mg PO Q6H PRN PRN Reason: Pain, Mild (Pain Scale 1-3) Last Admin: 02/26/21 20:37 Dose: 650 mg Documented by: Al Hydroxide/Mg Hydroxide (Magnesium Hydrox/Alum Hydrox 30 Ml Oral.Susp) 30 ml PO Q6H PRN PRN Reason: Heartburn/Nausea Apixaban (Apixaban 5 Mg Tablet) 5 mg PO BID [facility] Last Admin: 03/05/21 08:56 Dose: 5 mg Documented by: Aspirin (Aspirin 81 Mg Tab.Chew) 81 mg PO DAILY [facility] Last Admin: 03/05/21 08:57 Dose: 81 mg Documented by: Benzocaine (Throat Lozenge, Medicated Lozenge) 1 lozenge MUCOUS MEM Q2H PRN PRN Reason: Sore Throat Last Admin: 03/04/21 18:00 Dose: 1 lozenge Documented by: Clonazepam (Clonazepam 0.5 Mg Tablet) 0.25 mg PO BID [facility] Last Admin: 03/05/21 08:56 Dose: 0.25 mg Documented by: Clopidogrel Bisulfate (Clopidogrel Bisulfate 75 Mg Tablet) 75 mg PO DAILY [facility] Last Admin: 03/05/21 08:55 Dose: 75 mg Documented by: Docusate Sodium (Docusate Sodium 100 Mg Capsule) 100 mg PO DAILY PRN PRN Reason: Constipation Last Admin: 02/28/21 09:34 Dose: 100 mg Documented by: Ezetimibe (Ezetimibe 10 Mg Tablet) 10 mg PO DAILY [facility] Last Admin: 03/05/21 08:55 Dose: 10 mg Documented by: Ibuprofen (Ibuprofen 600 Mg Tablet) 600 mg PO Q8H PRN PRN Reason: Pain, Moderate (Pain Scale 4-6 Last Admin: 02/27/21 20:07 Dose: 600 mg Documented by: Lisinopril (Lisinopril 5 Mg Tablet) 5 mg PO DAILY [facility]; Protocol Last Admin: 03/05/21 08:57 Dose: 5 mg Documented by: Losartan Potassium (Losartan Potassium 50 Mg Tablet) 100 mg PO DAILY [facility]; Protocol Last Admin: 03/05/21 08:55 Dose: 100 mg Documented by: Magnesium Hydroxide (Milk Of Magnesia 30 Ml Oral.Susp) 30 ml PO DAILY PRN PRN Reason: Constipation Last Admin: 02/28/21 09:33 Dose: 30 ml Documented by: Melatonin (Melatonin 3 Mg Tablet) 3 mg PO BEDTIME PRN PRN Reason: insomnia Last Admin: 02/20/21 20:01 Dose: 3 mg Documented by: Metoprolol Succinate (Metoprolol Succinate Er 25 Mg Tab.Er.24h) 25 mg PO DAILY [facility]; Protocol Last Admin: 03/05/21 08:55 Dose: 25 mg Documented by: Mirtazapine (Mirtazapine 15 Mg Tablet) 15 mg PO BEDTIME [facility] Last Admin: 03/04/21 20:08 Dose: 15 mg Documented by: Multi-Ingred Cream/Lotion/Oil/Oint (Mineral Oil/Petrolatum,White 106 Gm Tube) 1 appl TOPICAL BID [facility] Last Admin: 03/05/21 08:57 Dose: 1 appl Documented by: Patient Own Med ( Fish Oil 1200mg Caps ) 2 each PO DAILY [facility] Last Admin: 03/05/21 10:19 Dose: Not Given Documented by: Pt Own Med: Coq10 (100 Mg Cap) 1 each PO DAILY [facility] Olanzapine (Olanzapine 2.5 Mg Tablet) 2.5 mg PO Q6H PRN PRN Reason: agitation, anxiety Last Admin: 02/23/21 04:40 Dose: 2.5 mg Documented by: Olanzapine (Olanzapine 5 Mg Tablet) 5 mg PO BEDTIME [facility] Last Admin: 03/04/21 20:08 Dose: 5 mg Documented by: Pharmacy Consult (Consult Rx Perform Med Rec) 1 each MISCELLANE ONCE PRN PRN Reason: Consult order Timolol Maleate (Timolol Maleate 0.5 % Oph Cathryn 5 Ml Drbtl) 1 drop EYE-RIGHT DAILY [facility] Last Admin: 03/05/21 08:57 Dose: 1 drop Documented by: Trazodone HCl (Trazodone Hcl 50 Mg Tablet) 50 mg PO BEDTIME PRN PRN Reason: Insomnia Allergies Allergies Allergy/AdvReac Type Severity Reaction Status Date / Time melons Allergy Unknown throat Uncoded 08/13/11 00:00 sweling Assessment & Plan Assessment & Plan (1) Acute DVT (deep venous thrombosis): Status: Acute Code(s): I82.409 - Acute embolism and thrombosis of unspecified deep veins of unspecified lower extremity (2) Psychosis: Status: Acute Code(s): F29 - Unspecified psychosis not due to a substance or known physiological condition Assessment and Plan: 80 yo F who is currently being treated for anxiety at [facility], has now developed right lower extremity edema, found to have DVT # acute DVT - most likely 2/2 hospitalization - no evidence of respiratory abnormality or PE - will start of therapeutic Lovenox - consult hematology for anticoagulation # Reported AMS - no evidence of AMS on my exam, pt alert oriented x3 - Head CT negative - monitor mentation - continue psych meds per [facility] PLAN 03/04- continue current medications, added cbc, cmp, continue to monitor VS, O2 sat/RR TID. No SOB, O2 sat 95% on room air. 03/05- pt less anxious overall, less psychosis, frustrated about being positive for covid and being isolated. VS- afebrile, o2sat 96, RR16, no SOB. I spent ___25___ minutes with the patient and/or on the patient floor today, greater than?50% of which was spent counseling/coordinating care. Reason for contiued inpatient stay Substantial Risk for: inability to function
[2021-03-05 16:00] VITALS: BP 148/67; PULSE 88; RESP 18; TEMP 36.3; O2SAT 97
[2021-03-05 18:00] VITALS: BP 123/52; PULSE 72; RESP 16; TEMP 36.9; O2SAT 94
[2021-03-05] MEDS: Famotidine 20 MG TABLET PO (20:59)
[2021-03-05] MEDS: OLANZapine 5 MG TABLET PO (20:59)
[2021-03-05] MEDS: Mirtazapine 15 MG TABLET PO (20:59)
[2021-03-06 00:33] VITALS: BP 107/47; PULSE 82; RESP 16; TEMP 36.8; O2SAT 93
[2021-03-06 05:48] VITALS: BP 137/69; PULSE 82; RESP 18; TEMP 37; O2SAT 97
[2021-03-06] MEDS: Metoprolol Succinate ER 25 MG TAB.ER.24H PO (08:31)
[2021-03-06] MEDS: Famotidine 20 MG TABLET PO ×2 (08:31→19:54)
[2021-03-06] MEDS: clonazePAM 0.5 MG TABLET 0.25 MG PO ×2 (08:31→19:55)
[2021-03-06] MEDS: Clopidogrel Bisulfate 75 MG TABLET PO (08:31)
[2021-03-06] MEDS: Ezetimibe 10 MG TABLET PO (08:31)
[2021-03-06] MEDS: Apixaban 5 MG TABLET PO ×2 (08:31→19:55)
[2021-03-06] MEDS: Losartan Potassium 50 MG TABLET 100 MG PO (08:32)
[2021-03-06] MEDS: Aspirin 81 MG TAB.CHEW PO (08:32)
[2021-03-06] MEDS: lisinopriL 5 MG TABLET PO (08:33)
[2021-03-06] MEDS: timoloL maleate 0.5 % Oph Sol 5 ML DRBTL 1 DROP EYE-RIGHT (08:34)
[2021-03-06] MEDS: Mineral Oil/Petrolatum,White 106 GM Tube 1 APPL TOPICAL ×2 (08:34→20:00)
--- NOTE | 2021-03-06 10:56 | HO.PSYCHPN ---
Subjective Subjective Date of Service: 03/06/21 Reason For Visit: Anxiety Disorder Subjective Notes: Conditional Voluntary Interim History: Pt continues on isolation due to covid. Pt with intermittent cough but mild. She denies chest pain, SOB. Afebrile. Per nursing, sleeping and eating well. VS stable- 137/69, Hr 82, RR 18, afebrile, O2sat 97. 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 She is much less dysphoric. She expresses appropriately so, frustration about covid dx and not being able to be with family, hoping to go home soon. Per nursing, no behavioral concerns. Medication Compliance: Yes Side effects from medications: No Attending Groups: No Review of Systems Review of Systems Yes all other systems are reviewed and are negative Constitutional: Reports anorexia Reports system reviewed and no additional complaints, except as documented Cardiovascular: Reports claudication Respiratory: Reports other Gastrointestinal: Reports other Mental Status Exam Mental Status Exam Narrative: Appearance: thin, ambulating with walker, casually groomed, fair hygiene in NAD Behavior: cooperative, calm, engaged psychomotor: no agitation or retardation noted. Speech: clear, normal rate, soft tone, spontaneous Thought process: repetitive Thought content: less perseveration, increasingly goal oriented Mood: nervous Affect: congruent, less dysphoric SI:none HI:none VH/AH:none Delusions: some mistrustfulness but reality based Insight/judgment:impaired x 2. Memory/cog: alert, oriented to year, month, place not situation. Needs moca. Diagnostics Vital Signs (24Hr): Vital Signs - 24 hr 03/05/21 16:00 03/05/21 18:00 03/06/21 00:33 Temperature 97.4 F 98.4 F 98.2 F Pulse Rate 88 72 82 Respiratory Rate 18 16 16 Blood Pressure 148/67 H 123/52 L 107/47 L Pulse Oximetry 97 94 93 03/06/21 05:48 Temperature 98.6 F Pulse Rate 82 Respiratory Rate 18 Blood Pressure 137/69 Pulse Oximetry 97 BMI result Body Mass Index 20.0 Labs Results: 03/04/21 12:59 03/04/21 12:59 Labs: Laboratory Results - last 48 hr 03/04/21 03/04/21 12:59 12:59 WBC 7.6 RBC 3.29 L Hgb 10.2 L Hct 31.7 L MCV 96.4 MCH 31.0 MCHC 32.2 RDW 13.7 Plt Count 452 H MPV 8.6 L Immature Gran % (Auto) 0.5 H Neut % (Auto) 68.9 Lymph % (Auto) 21.6 [place] % (Auto) 7.2 Eos % (Auto) 1.4 Baso % (Auto) 0.4 Lymph # (Auto) 1.6 [place] # (Auto) 0.6 Eos # (Auto) 0.1 Baso # (Auto) 0.0 Abs Immat Gran (auto) 0.04 H Absolute Neuts (auto) 5.2 Absolute Nucleated RBC 0.000 Nucleated RBC % (auto) 0.0 Sodium 138 Potassium 4.1 Chloride 102 Carbon Dioxide 28 Anion Gap 12 BUN 13 Creatinine 0.73 Estim Creat Clear Calc 47.1 Estimated GFR > 60 Random Glucose 145 H Calcium 9.3 Total Bilirubin 0.2 AST 32 H D ALT 33 H Alkaline Phosphatase 97 Total Protein 6.2 L Albumin 3.7 Imaging Radiology Impressions: ITS Impressions Head CT 02/19/21 08:57 IMPRESSION: No acute findings. Mild generalized atrophy and nonspecific periventricular white matter disease. 1 cm lucent lesion in the left parietal bone. Brain MRI 02/19/21 17:28 IMPRESSION: 1. No acute intracranial abnormalities. 2. Mild to moderate underlying microangiopathy. 3. Qualitatively, there is moderate generalized cerebral volume loss. Quantitative analysis of the NeuroQuant series will be postprocessed with findings dictated as an addendum. Brain MRI 02/19/21 17:56 IMPRESSION: 1. No acute intracranial abnormalities. 2. Mild to moderate underlying microangiopathy. 3. Qualitatively, there is moderate generalized cerebral volume loss. Quantitative analysis of the NeuroQuant series will be postprocessed with findings dictated as an addendum. Venous Duplex 02/28/21 20:42 IMPRESSION: There is deep vein thrombosis involving peroneal and posterior tibial veins of the calf. However, no evidence of thrombosis within the popliteal or femoral veins. Note: We have been attempting to provide a direct [id number] communication of test results. Contact was made. The critical test result was discussed with Dr. Lynn at 9:50 PM on 02/28/2021 and it was ascertained that the content and the importance of the findings was understood at the time of the direct communication. Head CT 02/28/21 21:30 IMPRESSION: No acute intracranial pathology. Medications Medications Current Medications Acetaminophen (Acetaminophen 325 Mg Tablet) 650 mg PO Q6H PRN PRN Reason: Pain, Mild (Pain Scale 1-3) Last Admin: 02/26/21 20:37 Dose: 650 mg Documented by: Al Hydroxide/Mg Hydroxide (Magnesium Hydrox/Alum Hydrox 30 Ml Oral.Susp) 30 ml PO Q6H PRN PRN Reason: Heartburn/Nausea Apixaban (Apixaban 5 Mg Tablet) 5 mg PO BID [facility] Last Admin: 03/06/21 08:31 Dose: 5 mg Documented by: Aspirin (Aspirin 81 Mg Tab.Chew) 81 mg PO DAILY [facility] Last Admin: 03/06/21 08:32 Dose: 81 mg Documented by: Benzocaine (Throat Lozenge, Medicated Lozenge) 1 lozenge MUCOUS MEM Q2H PRN PRN Reason: Sore Throat Last Admin: 03/04/21 18:00 Dose: 1 lozenge Documented by: Clonazepam (Clonazepam 0.5 Mg Tablet) 0.25 mg PO BID [facility] Last Admin: 03/06/21 08:31 Dose: 0.25 mg Documented by: Clopidogrel Bisulfate (Clopidogrel Bisulfate 75 Mg Tablet) 75 mg PO DAILY [facility] Last Admin: 03/06/21 08:31 Dose: 75 mg Documented by: Docusate Sodium (Docusate Sodium 100 Mg Capsule) 100 mg PO DAILY PRN PRN Reason: Constipation Last Admin: 02/28/21 09:34 Dose: 100 mg Documented by: Ezetimibe (Ezetimibe 10 Mg Tablet) 10 mg PO DAILY [facility] Last Admin: 03/06/21 08:31 Dose: 10 mg Documented by: Famotidine (Famotidine 20 Mg Tablet) 20 mg PO BID [facility] Last Admin: 03/06/21 08:31 Dose: 20 mg Documented by: Ibuprofen (Ibuprofen 600 Mg Tablet) 600 mg PO Q8H PRN PRN Reason: Pain, Moderate (Pain Scale 4-6 Last Admin: 02/27/21 20:07 Dose: 600 mg Documented by: Lisinopril (Lisinopril 5 Mg Tablet) 5 mg PO DAILY [facility]; Protocol Last Admin: 03/06/21 08:33 Dose: 5 mg Documented by: Losartan Potassium (Losartan Potassium 50 Mg Tablet) 100 mg PO DAILY [facility]; Protocol Last Admin: 03/06/21 08:32 Dose: 100 mg Documented by: Magnesium Hydroxide (Milk Of Magnesia 30 Ml Oral.Susp) 30 ml PO DAILY PRN PRN Reason: Constipation Last Admin: 02/28/21 09:33 Dose: 30 ml Documented by: Melatonin (Melatonin 3 Mg Tablet) 3 mg PO BEDTIME PRN PRN Reason: insomnia Last Admin: 02/20/21 20:01 Dose: 3 mg Documented by: Metoprolol Succinate (Metoprolol Succinate Er 25 Mg Tab.Er.24h) 25 mg PO DAILY [facility]; Protocol Last Admin: 03/06/21 08:31 Dose: 25 mg Documented by: Mirtazapine (Mirtazapine 15 Mg Tablet) 15 mg PO BEDTIME [facility] Last Admin: 03/05/21 20:59 Dose: 15 mg Documented by: Multi-Ingred Cream/Lotion/Oil/Oint (Mineral Oil/Petrolatum,White 106 Gm Tube) 1 appl TOPICAL BID [facility] Last Admin: 03/06/21 08:34 Dose: 1 appl Documented by: Patient Own Med ( Fish Oil 1200mg Caps ) 2 each PO DAILY [facility] Last Admin: 03/05/21 15:27 Dose: 2 each Documented by: Pt Own Med: Coq10 (100 Mg Cap) 1 each PO DAILY [facility] Last Admin: 03/06/21 08:34 Dose: 1 each Documented by: Olanzapine (Olanzapine 2.5 Mg Tablet) 2.5 mg PO Q6H PRN PRN Reason: agitation, anxiety Last Admin: 02/23/21 04:40 Dose: 2.5 mg Documented by: Olanzapine (Olanzapine 5 Mg Tablet) 5 mg PO BEDTIME [facility] Last Admin: 03/05/21 20:59 Dose: 5 mg Documented by: Pharmacy Consult (Consult Rx Perform Med Rec) 1 each MISCELLANE ONCE PRN PRN Reason: Consult order Timolol Maleate (Timolol Maleate 0.5 % Oph Cathryn 5 Ml Drbtl) 1 drop EYE-RIGHT DAILY [facility] Last Admin: 03/06/21 08:34 Dose: 1 drop Documented by: Trazodone HCl (Trazodone Hcl 50 Mg Tablet) 50 mg PO BEDTIME PRN PRN Reason: Insomnia Allergies Allergies Allergy/AdvReac Type Severity Reaction Status Date / Time melons Allergy Unknown throat Uncoded 08/13/11 00:00 sweling Assessment & Plan Assessment & Plan (1) Acute DVT (deep venous thrombosis): Status: Acute Code(s): I82.409 - Acute embolism and thrombosis of unspecified deep veins of unspecified lower extremity Assessment and Plan: 80 yo F who is currently being treated for anxiety at [facility], has now developed right lower extremity edema, found to have DVT # acute DVT - most likely 2/2 hospitalization - no evidence of respiratory abnormality or PE - will start of therapeutic Lovenox - consult hematology for anticoagulation # Reported AMS - no evidence of AMS on my exam, pt alert oriented x3 - Head CT negative - monitor mentation - continue psych meds per [facility] PLAN: 03/06- pt much less psychotic, less anxious, less dysphoric. no complications with covid. no signs of respiratory distress. continue to monitor VS, including 02sat, rr q6hrs. No changes in psych meds. I spent minutes with the patient and/or on the patient floor today, greater than?50% of which was spent counseling/coordinating care. Reason for contiued inpatient stay Substantial Risk for: inability to function
--- NOTE | 2021-03-06 14:54 | MHC.CLN ---
F/U PATIENT IS POSITIVE FOR COVID. CONTINUES WITH VARIABLE INTAKE. CONTIUE REGUALR DIET, 240 ML ENSURE BID, [address] TO FOLLOW WEEKLY.
[2021-03-06] MEDS: Mirtazapine 15 MG TABLET PO (19:55)
[2021-03-06] MEDS: OLANZapine 5 MG TABLET PO (19:55)
[2021-03-06 20:35] VITALS: BP 144/70; PULSE 90; RESP 17; TEMP 36.8; O2SAT 98
[2021-03-07 06:00] VITALS: BP 177/88; PULSE 87; RESP 16; TEMP 36.9; O2SAT 97
[2021-03-07] MEDS: timoloL maleate 0.5 % Oph Sol 5 ML DRBTL 1 DROP EYE-RIGHT (09:44)
[2021-03-07] MEDS: clonazePAM 0.5 MG TABLET 0.25 MG PO ×2 (09:44→19:31)
[2021-03-07] MEDS: Mineral Oil/Petrolatum,White 106 GM Tube 1 APPL TOPICAL ×2 (09:44→19:35)
[2021-03-07] MEDS: Aspirin 81 MG TAB.CHEW PO (09:45)
[2021-03-07] MEDS: Apixaban 5 MG TABLET PO ×2 (09:45→19:32)
[2021-03-07] MEDS: Metoprolol Succinate ER 25 MG TAB.ER.24H PO (09:45)
[2021-03-07] MEDS: Losartan Potassium 50 MG TABLET 100 MG PO (09:45)
[2021-03-07] MEDS: Ezetimibe 10 MG TABLET PO (09:45)
[2021-03-07] MEDS: lisinopriL 5 MG TABLET PO (09:45)
[2021-03-07] MEDS: Clopidogrel Bisulfate 75 MG TABLET PO (09:45)
[2021-03-07] MEDS: Famotidine 20 MG TABLET PO ×2 (09:45→19:33)
--- NOTE | 2021-03-07 10:57 | P.PNPSI_ITS ---
Subjective Subjective Date of Service: 03/07/21 Reason For Visit: Anxiety Disorder Subjective Notes: Conditional Voluntary Medical Problems Affecting Mental Status: Yes (COVID+) Interim History: Patient was seen and discussed in rounds today. She continues to be in isolation because of being COVID positive and is very anxious. She is also very unhappy about her care. She was also very upset about not being able to locate her hearing aid which I was able to help with and they were found and she was happy about that. No other complaints. No side effects. No changes were made today. No behavioral issues other than her increased level of anxiety over the isolation. Review of Systems Review of Systems Yes all other systems are reviewed and are negative Constitutional: Reports anorexia Reports system reviewed and no additional complaints, except as documented Cardiovascular: Reports claudication Respiratory: Reports other Gastrointestinal: Reports other Mental Status Exam Mental Status Exam Narrative: Appearance: thin, ambulating with walker, casually groomed, fair hygiene in NAD Behavior: cooperative, calm, engaged psychomotor: no agitation or retardation noted. Speech: clear, normal rate, soft tone, spontaneous Thought process: repetitive Thought content: less perseveration, increasingly goal oriented Mood: Anxious Affect: congruent, moredysphoric SI:none HI:none VH/AH:none Delusions: some mistrustfulness but reality based Insight/judgment:impaired x 2. Memory/cog: alert, oriented to year, month, place not situation. Needs moca. Diagnostics Vital Signs (24Hr): Vital Signs - 24 hr 03/06/21 20:35 03/07/21 06:00 Temperature 98.2 F 98.4 F Pulse Rate 90 87 Respiratory Rate 17 16 Blood Pressure 144/70 H 177/88 H Pulse Oximetry 98 97 BMI result Body Mass Index 20.0 Labs Results: 03/04/21 12:59 03/04/21 12:59 Imaging Radiology Impressions: ITS Impressions Head CT 02/19/21 08:57 IMPRESSION: No acute findings. Mild generalized atrophy and nonspecific periventricular white matter disease. 1 cm lucent lesion in the left parietal bone. Brain MRI 02/19/21 17:28 IMPRESSION: 1. No acute intracranial abnormalities. 2. Mild to moderate underlying microangiopathy. 3. Qualitatively, there is moderate generalized cerebral volume loss. Quantitative analysis of the NeuroQuant series will be postprocessed with findings dictated as an addendum. Brain MRI 02/19/21 17:56 IMPRESSION: 1. No acute intracranial abnormalities. 2. Mild to moderate underlying microangiopathy. 3. Qualitatively, there is moderate generalized cerebral volume loss. Quantitative analysis of the NeuroQuant series will be postprocessed with findings dictated as an addendum. Venous Duplex 02/28/21 20:42 IMPRESSION: There is deep vein thrombosis involving peroneal and posterior tibial veins of the calf. However, no evidence of thrombosis within the popliteal or femoral veins. Note: We have been attempting to provide a direct [id number] communication of test results. Contact was made. The critical test result was discussed with Dr. Lynn at 9:50 PM on 02/28/2021 and it was ascertained that the content and the importance of the findings was understood at the time of the direct communication. Head CT 02/28/21 21:30 IMPRESSION: No acute intracranial pathology. Medications Medications Current Medications Acetaminophen (Acetaminophen 325 Mg Tablet) 650 mg PO Q6H PRN PRN Reason: Pain, Mild (Pain Scale 1-3) Last Admin: 02/26/21 20:37 Dose: 650 mg Documented by: Al Hydroxide/Mg Hydroxide (Magnesium Hydrox/Alum Hydrox 30 Ml Oral.Susp) 30 ml PO Q6H PRN PRN Reason: Heartburn/Nausea Apixaban (Apixaban 5 Mg Tablet) 5 mg PO BID [facility] Last Admin: 03/07/21 09:45 Dose: 5 mg Documented by: Aspirin (Aspirin 81 Mg Tab.Chew) 81 mg PO DAILY [facility] Last Admin: 03/07/21 09:45 Dose: 81 mg Documented by: Benzocaine (Throat Lozenge, Medicated Lozenge) 1 lozenge MUCOUS MEM Q2H PRN PRN Reason: Sore Throat Last Admin: 03/04/21 18:00 Dose: 1 lozenge Documented by: Clonazepam (Clonazepam 0.5 Mg Tablet) 0.25 mg PO BID [facility] Last Admin: 03/07/21 09:44 Dose: 0.25 mg Documented by: Clopidogrel Bisulfate (Clopidogrel Bisulfate 75 Mg Tablet) 75 mg PO DAILY [facility] Last Admin: 03/07/21 09:45 Dose: 75 mg Documented by: Docusate Sodium (Docusate Sodium 100 Mg Capsule) 100 mg PO DAILY PRN PRN Reason: Constipation Last Admin: 02/28/21 09:34 Dose: 100 mg Documented by: Ezetimibe (Ezetimibe 10 Mg Tablet) 10 mg PO DAILY [facility] Last Admin: 03/07/21 09:45 Dose: 10 mg Documented by: Famotidine (Famotidine 20 Mg Tablet) 20 mg PO BID [facility] Last Admin: 03/07/21 09:45 Dose: 20 mg Documented by: Ibuprofen (Ibuprofen 600 Mg Tablet) 600 mg PO Q8H PRN PRN Reason: Pain, Moderate (Pain Scale 4-6 Last Admin: 02/27/21 20:07 Dose: 600 mg Documented by: Lisinopril (Lisinopril 5 Mg Tablet) 5 mg PO DAILY [facility]; Protocol Last Admin: 03/07/21 09:45 Dose: 5 mg Documented by: Losartan Potassium (Losartan Potassium 50 Mg Tablet) 100 mg PO DAILY [facility]; Protocol Last Admin: 03/07/21 09:45 Dose: 100 mg Documented by: Magnesium Hydroxide (Milk Of Magnesia 30 Ml Oral.Susp) 30 ml PO DAILY PRN PRN Reason: Constipation Last Admin: 02/28/21 09:33 Dose: 30 ml Documented by: Melatonin (Melatonin 3 Mg Tablet) 3 mg PO BEDTIME PRN PRN Reason: insomnia Last Admin: 02/20/21 20:01 Dose: 3 mg Documented by: Metoprolol Succinate (Metoprolol Succinate Er 25 Mg Tab.Er.24h) 25 mg PO DAILY [facility]; Protocol Last Admin: 03/07/21 09:45 Dose: 25 mg Documented by: Mirtazapine (Mirtazapine 15 Mg Tablet) 15 mg PO BEDTIME [facility] Last Admin: 03/06/21 19:55 Dose: 15 mg Documented by: Multi-Ingred Cream/Lotion/Oil/Oint (Mineral Oil/Petrolatum,White 106 Gm Tube) 1 appl TOPICAL BID [facility] Last Admin: 03/07/21 09:44 Dose: 1 appl Documented by: Patient Own Med ( Fish Oil 1200mg Caps ) 2 each PO DAILY [facility] Last Admin: 03/07/21 09:44 Dose: 2 each Documented by: Pt Own Med: Coq10 (100 Mg Cap) 1 each PO DAILY [facility] Last Admin: 03/07/21 09:44 Dose: 1 each Documented by: Olanzapine (Olanzapine 2.5 Mg Tablet) 2.5 mg PO Q6H PRN PRN Reason: agitation, anxiety Last Admin: 02/23/21 04:40 Dose: 2.5 mg Documented by: Olanzapine (Olanzapine 5 Mg Tablet) 5 mg PO BEDTIME [facility] Last Admin: 03/06/21 19:55 Dose: 5 mg Documented by: Pharmacy Consult (Consult Rx Perform Med Rec) 1 each MISCELLANE ONCE PRN PRN Reason: Consult order Timolol Maleate (Timolol Maleate 0.5 % Oph Cathryn 5 Ml Drbtl) 1 drop EYE-RIGHT DAILY [facility] Last Admin: 03/07/21 09:44 Dose: 1 drop Documented by: Trazodone HCl (Trazodone Hcl 50 Mg Tablet) 50 mg PO BEDTIME PRN PRN Reason: Insomnia Allergies Allergies Allergy/AdvReac Type Severity Reaction Status Date / Time melons Allergy Unknown throat Uncoded 08/13/11 00:00 sweling Assessment & Plan Assessment & Plan (1) Acute DVT (deep venous thrombosis): Status: Acute Code(s): I82.409 - Acute embolism and thrombosis of unspecified deep veins of unspecified lower extremity Assessment and Plan: 80 yo F who is currently being treated for anxiety at [facility], has now developed right lower extremity edema, found to have DVT # acute DVT - most likely 2/2 hospitalization - no evidence of respiratory abnormality or PE - will start of therapeutic Lovenox - consult hematology for anticoagulation # Reported AMS - no evidence of AMS on my exam, pt alert oriented x3 - Head CT negative - monitor mentation - continue psych meds per [facility] PLAN: 03/06- pt much less psychotic, less anxious, less dysphoric. no complications with covid. no signs of respiratory distress. continue to monitor VS, including 02sat, rr q6hrs. No changes in psych meds. Continue current plans with no changes today. Continue isolation I spent minutes with the patient and/or on the patient floor today, greater than?50% of which was spent counseling/coordinating care. Reason for contiued inpatient stay Substantial Risk for: other
[2021-03-07 18:00] VITALS: BP 166/80; PULSE 93; RESP 16; TEMP 36.9; O2SAT 99
[2021-03-07] MEDS: OLANZapine 5 MG TABLET PO (19:32)
[2021-03-07] MEDS: Mirtazapine 15 MG TABLET PO (19:32)
[2021-03-07 23:27] VITALS: BP 156/78; PULSE 90; RESP 16; TEMP 36.8; O2SAT 99
[2021-03-08 04:10] VITALS: BP 152/74; PULSE 88; RESP 16; TEMP 36.1; O2SAT 97
[2021-03-08 06:00] VITALS: BP 148/74; PULSE 86; RESP 16; TEMP 36.9; O2SAT 98
[2021-03-08] MEDS: Clopidogrel Bisulfate 75 MG TABLET PO (08:33)
[2021-03-08] MEDS: Losartan Potassium 50 MG TABLET 100 MG PO (08:33)
[2021-03-08] MEDS: clonazePAM 0.5 MG TABLET 0.25 MG PO ×2 (08:34→21:23)
[2021-03-08] MEDS: Aspirin 81 MG TAB.CHEW PO (08:34)
[2021-03-08] MEDS: Metoprolol Succinate ER 25 MG TAB.ER.24H PO (08:34)
[2021-03-08] MEDS: Ezetimibe 10 MG TABLET PO (08:34)
[2021-03-08] MEDS: lisinopriL 5 MG TABLET PO (08:34)
[2021-03-08] MEDS: Apixaban 5 MG TABLET PO ×2 (08:34→21:24)
[2021-03-08] MEDS: timoloL maleate 0.5 % Oph Sol 5 ML DRBTL 1 DROP EYE-RIGHT (08:35)
[2021-03-08] MEDS: Famotidine 20 MG TABLET PO ×2 (08:35→21:24)
[2021-03-08] MEDS: Mineral Oil/Petrolatum,White 106 GM Tube 1 APPL TOPICAL ×2 (08:35→21:25)
--- NOTE | 2021-03-08 10:04 | P.PNPSI_ITS ---
Subjective Subjective Date of Service: 03/08/21 Reason For Visit: Anxiety Disorder Subjective Notes: Conditional Voluntary Medical Problems Affecting Mental Status: No Interim History: Patient was seen and discussed in rounds today. Records reviewed. She is doing better and is much calmer today after her hearing aids were found yesterday. She is lying comfortably in bed. She denies any acute symptoms. She has adjusted and resigned to the fact that she needs to be in isolation no complaints today. No changes were made. Eating and sleeping adequately Medication Compliance: Yes Side effects from medications: No Review of Systems COVID positive with no acute symptoms Review of Systems Review of Systems Yes all other systems are reviewed and are negative Reports system reviewed and no additional complaints, except as documented Cardiovascular: Reports claudication Respiratory: Reports other Gastrointestinal: Reports other Mental Status Exam Mental Status Exam Narrative: Appearance: thin, ambulating with walker, casually groomed, fair hygiene in NAD Behavior: cooperative, calm, engaged psychomotor: no agitation or retardation noted. Speech: clear, normal rate, soft tone, spontaneous Thought process: repetitive Thought content: less perseveration, increasingly goal oriented Mood: Anxious Affect: congruent, less dysphoric SI:none HI:none VH/AH:none Delusions: some mistrustfulness but reality based Insight/judgment:impaired x 2. Memory/cog: alert, oriented to year, month, place not situation. Needs moca. Diagnostics Vital Signs (24Hr): Vital Signs - 24 hr 03/07/21 18:00 03/07/21 23:27 03/08/21 04:10 Temperature 98.4 F 98.2 F 97 F Pulse Rate 93 90 88 Respiratory Rate 16 16 16 Blood Pressure 166/80 H 156/78 H 152/74 H Pulse Oximetry 99 99 97 BMI result Body Mass Index 20.0 Labs Results: 03/04/21 12:59 03/04/21 12:59 Imaging Radiology Impressions: ITS Impressions Head CT 02/19/21 08:57 IMPRESSION: No acute findings. Mild generalized atrophy and nonspecific periventricular white matter disease. 1 cm lucent lesion in the left parietal bone. Brain MRI 02/19/21 17:28 IMPRESSION: 1. No acute intracranial abnormalities. 2. Mild to moderate underlying microangiopathy. 3. Qualitatively, there is moderate generalized cerebral volume loss. Quantitative analysis of the NeuroQuant series will be postprocessed with findings dictated as an addendum. Brain MRI 02/19/21 17:56 IMPRESSION: 1. No acute intracranial abnormalities. 2. Mild to moderate underlying microangiopathy. 3. Qualitatively, there is moderate generalized cerebral volume loss. Quantitative analysis of the NeuroQuant series will be postprocessed with findings dictated as an addendum. Venous Duplex 02/28/21 20:42 IMPRESSION: There is deep vein thrombosis involving peroneal and posterior tibial veins of the calf. However, no evidence of thrombosis within the popliteal or femoral veins. Note: We have been attempting to provide a direct [id number] communication of test results. Contact was made. The critical test result was discussed with Dr. Lynn at 9:50 PM on 02/28/2021 and it was ascertained that the content and the importance of the findings was understood at the time of the direct communication. Head CT 02/28/21 21:30 IMPRESSION: No acute intracranial pathology. Medications Medications Current Medications Acetaminophen (Acetaminophen 325 Mg Tablet) 650 mg PO Q6H PRN PRN Reason: Pain, Mild (Pain Scale 1-3) Last Admin: 02/26/21 20:37 Dose: 650 mg Documented by: Al Hydroxide/Mg Hydroxide (Magnesium Hydrox/Alum Hydrox 30 Ml Oral.Susp) 30 ml PO Q6H PRN PRN Reason: Heartburn/Nausea Apixaban (Apixaban 5 Mg Tablet) 5 mg PO BID [facility] Last Admin: 03/08/21 08:34 Dose: 5 mg Documented by: Aspirin (Aspirin 81 Mg Tab.Chew) 81 mg PO DAILY [facility] Last Admin: 03/08/21 08:34 Dose: 81 mg Documented by: Benzocaine (Throat Lozenge, Medicated Lozenge) 1 lozenge MUCOUS MEM Q2H PRN PRN Reason: Sore Throat Last Admin: 03/04/21 18:00 Dose: 1 lozenge Documented by: Clonazepam (Clonazepam 0.5 Mg Tablet) 0.25 mg PO BID [facility] Last Admin: 03/08/21 08:34 Dose: 0.25 mg Documented by: Clopidogrel Bisulfate (Clopidogrel Bisulfate 75 Mg Tablet) 75 mg PO DAILY [facility] Last Admin: 03/08/21 08:33 Dose: 75 mg Documented by: Docusate Sodium (Docusate Sodium 100 Mg Capsule) 100 mg PO DAILY PRN PRN Reason: Constipation Last Admin: 02/28/21 09:34 Dose: 100 mg Documented by: Ezetimibe (Ezetimibe 10 Mg Tablet) 10 mg PO DAILY [facility] Last Admin: 03/08/21 08:34 Dose: 10 mg Documented by: Famotidine (Famotidine 20 Mg Tablet) 20 mg PO BID [facility] Last Admin: 03/08/21 08:35 Dose: 20 mg Documented by: Ibuprofen (Ibuprofen 600 Mg Tablet) 600 mg PO Q8H PRN PRN Reason: Pain, Moderate (Pain Scale 4-6 Last Admin: 02/27/21 20:07 Dose: 600 mg Documented by: Lisinopril (Lisinopril 5 Mg Tablet) 5 mg PO DAILY [facility]; Protocol Last Admin: 03/08/21 08:34 Dose: 5 mg Documented by: Losartan Potassium (Losartan Potassium 50 Mg Tablet) 100 mg PO DAILY [facility]; Protocol Last Admin: 03/08/21 08:33 Dose: 100 mg Documented by: Magnesium Hydroxide (Milk Of Magnesia 30 Ml Oral.Susp) 30 ml PO DAILY PRN PRN Reason: Constipation Last Admin: 02/28/21 09:33 Dose: 30 ml Documented by: Melatonin (Melatonin 3 Mg Tablet) 3 mg PO BEDTIME PRN PRN Reason: insomnia Last Admin: 02/20/21 20:01 Dose: 3 mg Documented by: Metoprolol Succinate (Metoprolol Succinate Er 25 Mg Tab.Er.24h) 25 mg PO DAILY [facility]; Protocol Last Admin: 03/08/21 08:34 Dose: 25 mg Documented by: Mirtazapine (Mirtazapine 15 Mg Tablet) 15 mg PO BEDTIME [facility] Last Admin: 03/07/21 19:32 Dose: 15 mg Documented by: Multi-Ingred Cream/Lotion/Oil/Oint (Mineral Oil/Petrolatum,White 106 Gm Tube) 1 appl TOPICAL BID [facility] Last Admin: 03/08/21 08:35 Dose: 1 appl Documented by: Patient Own Med ( Fish Oil 1200mg Caps ) 2 each PO DAILY [facility] Last Admin: 03/08/21 08:35 Dose: 2 each Documented by: Pt Own Med: Coq10 (100 Mg Cap) 1 each PO DAILY [facility] Last Admin: 03/08/21 08:35 Dose: 1 each Documented by: Olanzapine (Olanzapine 2.5 Mg Tablet) 2.5 mg PO Q6H PRN PRN Reason: agitation, anxiety Last Admin: 02/23/21 04:40 Dose: 2.5 mg Documented by: Olanzapine (Olanzapine 5 Mg Tablet) 5 mg PO BEDTIME [facility] Last Admin: 03/07/21 19:32 Dose: 5 mg Documented by: Pharmacy Consult (Consult Rx Perform Med Rec) 1 each MISCELLANE ONCE PRN PRN Reason: Consult order Timolol Maleate (Timolol Maleate 0.5 % Oph Cathryn 5 Ml Drbtl) 1 drop EYE-RIGHT DAILY [facility] Last Admin: 03/08/21 08:35 Dose: 1 drop Documented by: Trazodone HCl (Trazodone Hcl 50 Mg Tablet) 50 mg PO BEDTIME PRN PRN Reason: Insomnia Allergies Allergies Allergy/AdvReac Type Severity Reaction Status Date / Time melons Allergy Unknown throat Uncoded 08/13/11 00:00 sweling Assessment & Plan Assessment & Plan (1) Acute DVT (deep venous thrombosis): Status: Acute Code(s): I82.409 - Acute embolism and thrombosis of unspecified deep veins of unspecified lower extremity Assessment and Plan: 80 yo F who is currently being treated for anxiety at [facility], has now developed right lower extremity edema, found to have DVT # acute DVT - most likely 2/2 hospitalization - no evidence of respiratory abnormality or PE - will start of therapeutic Lovenox - consult hematology for anticoagulation # Reported AMS - no evidence of AMS on my exam, pt alert oriented x3 - Head CT negative - monitor mentation - continue psych meds per [facility] PLAN: 03/06- pt much less psychotic, less anxious, less dysphoric. no complications with covid. no signs of respiratory distress. continue to monitor VS, including 02sat, rr q6hrs. No changes in psych meds. Continue current plans with no changes today. Continue isolation 03/08: Continue current plans and regimen. Continue isolation I spent minutes with the patient and/or on the patient floor today, greater than?50% of which was spent counseling/coordinating care. Reason for contiued inpatient stay Substantial Risk for: other
[2021-03-08 20:00] VITALS: BP 142/91; PULSE 84; RESP 16; TEMP 36.8; O2SAT 98
[2021-03-08] MEDS: OLANZapine 5 MG TABLET PO (21:24)
[2021-03-08] MEDS: Mirtazapine 15 MG TABLET PO (21:24)
[2021-03-09] VITALS (7 sets, daily range): BP systolic 124–133; BP diastolic 60–62; PULSE 84–88; RESP 14–18; TEMP 37–37.7; O2SAT 96–98
[2021-03-09] MEDS: Mineral Oil/Petrolatum,White 106 GM Tube 1 APPL TOPICAL ×2 (09:30→22:38)
[2021-03-09] MEDS: timoloL maleate 0.5 % Oph Sol 5 ML DRBTL 1 DROP EYE-RIGHT (09:30)
[2021-03-09] MEDS: Metoprolol Succinate ER 25 MG TAB.ER.24H PO (09:38)
[2021-03-09] MEDS: Apixaban 5 MG TABLET PO ×2 (09:39→21:22)
[2021-03-09] MEDS: Clopidogrel Bisulfate 75 MG TABLET PO (09:39)
[2021-03-09] MEDS: Losartan Potassium 50 MG TABLET 100 MG PO (09:39)
[2021-03-09] MEDS: Ezetimibe 10 MG TABLET PO (09:39)
[2021-03-09] MEDS: Aspirin 81 MG TAB.CHEW PO (09:39)
[2021-03-09] MEDS: Famotidine 20 MG TABLET PO ×2 (09:39→21:22)
[2021-03-09] MEDS: lisinopriL 5 MG TABLET PO (09:39)
[2021-03-09] MEDS: clonazePAM 0.5 MG TABLET 0.25 MG PO ×2 (09:43→22:39)
--- NOTE | 2021-03-09 11:04 | HO.PSYCHPN ---
Subjective Subjective Date of Service: 03/09/21 Reason For Visit: Anxiety Disorder Subjective Notes: Conditional Voluntary Interim History: Patient was seen and discussed in rounds today. She is doing quite well and continues to be asymptomatic with regards to her COVID positive status. Compliant with treatment and isolation. She denies any side effects. Eating and sleeping adequately and is much less anxious and is hoping for the quarantine to be over so she can leave. No changes were made today Medication Compliance: Yes Side effects from medications: No Review of Systems Review of Systems Yes all other systems are reviewed and are negative Reports system reviewed and no additional complaints, except as documented Cardiovascular: Reports claudication Respiratory: Reports other Gastrointestinal: Reports other Mental Status Exam Mental Status Exam Narrative: Appearance: thin, ambulating with walker, casually groomed, fair hygiene in NAD Behavior: cooperative, calm, engaged psychomotor: no agitation or retardation noted. Speech: clear, normal rate, soft tone, spontaneous Thought process: Coherent Thought content: less perseveration, increasingly goal oriented Mood: Much less anxious Affect: congruent, less dysphoric SI:none HI:none VH/AH:none Delusions: some mistrustfulness but reality based Insight/judgment: Intact Memory/cog: alert, oriented to year, month, place not situation. Diagnostics Vital Signs (24Hr): Vital Signs - 24 hr 03/08/21 20:00 03/09/21 00:00 03/09/21 04:00 Temperature 98.2 F Pulse Rate 84 Respiratory Rate 16 14 14 Blood Pressure 142/91 H Pulse Oximetry 98 03/09/21 05:59 03/09/21 08:00 03/09/21 09:38 Temperature 98.7 F 98.6 F Pulse Rate 88 87 Respiratory Rate 18 Blood Pressure 133/62 124/61 124/61 Pulse Oximetry 96 97 BMI result Body Mass Index 20.0 Labs Results: 03/04/21 12:59 03/04/21 12:59 Imaging Radiology Impressions: ITS Impressions Head CT 02/19/21 08:57 IMPRESSION: No acute findings. Mild generalized atrophy and nonspecific periventricular white matter disease. 1 cm lucent lesion in the left parietal bone. Brain MRI 02/19/21 17:28 IMPRESSION: 1. No acute intracranial abnormalities. 2. Mild to moderate underlying microangiopathy. 3. Qualitatively, there is moderate generalized cerebral volume loss. Quantitative analysis of the NeuroQuant series will be postprocessed with findings dictated as an addendum. Brain MRI 02/19/21 17:56 IMPRESSION: 1. No acute intracranial abnormalities. 2. Mild to moderate underlying microangiopathy. 3. Qualitatively, there is moderate generalized cerebral volume loss. Quantitative analysis of the NeuroQuant series will be postprocessed with findings dictated as an addendum. Venous Duplex 02/28/21 20:42 IMPRESSION: There is deep vein thrombosis involving peroneal and posterior tibial veins of the calf. However, no evidence of thrombosis within the popliteal or femoral veins. Note: We have been attempting to provide a direct [id number] communication of test results. Contact was made. The critical test result was discussed with Dr. Lynn at 9:50 PM on 02/28/2021 and it was ascertained that the content and the importance of the findings was understood at the time of the direct communication. Head CT 02/28/21 21:30 IMPRESSION: No acute intracranial pathology. Medications Medications Current Medications Acetaminophen (Acetaminophen 325 Mg Tablet) 650 mg PO Q6H PRN PRN Reason: Pain, Mild (Pain Scale 1-3) Last Admin: 02/26/21 20:37 Dose: 650 mg Documented by: Al Hydroxide/Mg Hydroxide (Magnesium Hydrox/Alum Hydrox 30 Ml Oral.Susp) 30 ml PO Q6H PRN PRN Reason: Heartburn/Nausea Apixaban (Apixaban 5 Mg Tablet) 5 mg PO BID [facility] Last Admin: 03/09/21 09:39 Dose: 5 mg Documented by: Aspirin (Aspirin 81 Mg Tab.Chew) 81 mg PO DAILY [facility] Last Admin: 03/09/21 09:39 Dose: 81 mg Documented by: Benzocaine (Throat Lozenge, Medicated Lozenge) 1 lozenge MUCOUS MEM Q2H PRN PRN Reason: Sore Throat Last Admin: 03/04/21 18:00 Dose: 1 lozenge Documented by: Clonazepam (Clonazepam 0.5 Mg Tablet) 0.25 mg PO BID [facility] Last Admin: 03/09/21 09:43 Dose: 0.25 mg Documented by: Clopidogrel Bisulfate (Clopidogrel Bisulfate 75 Mg Tablet) 75 mg PO DAILY [facility] Last Admin: 03/09/21 09:39 Dose: 75 mg Documented by: Docusate Sodium (Docusate Sodium 100 Mg Capsule) 100 mg PO DAILY PRN PRN Reason: Constipation Last Admin: 02/28/21 09:34 Dose: 100 mg Documented by: Ezetimibe (Ezetimibe 10 Mg Tablet) 10 mg PO DAILY [facility] Last Admin: 03/09/21 09:39 Dose: 10 mg Documented by: Famotidine (Famotidine 20 Mg Tablet) 20 mg PO BID [facility] Last Admin: 03/09/21 09:39 Dose: 20 mg Documented by: Ibuprofen (Ibuprofen 600 Mg Tablet) 600 mg PO Q8H PRN PRN Reason: Pain, Moderate (Pain Scale 4-6 Last Admin: 02/27/21 20:07 Dose: 600 mg Documented by: Lisinopril (Lisinopril 5 Mg Tablet) 5 mg PO DAILY [facility]; Protocol Last Admin: 03/09/21 09:39 Dose: 5 mg Documented by: Losartan Potassium (Losartan Potassium 50 Mg Tablet) 100 mg PO DAILY [facility]; Protocol Last Admin: 03/09/21 09:39 Dose: 100 mg Documented by: Magnesium Hydroxide (Milk Of Magnesia 30 Ml Oral.Susp) 30 ml PO DAILY PRN PRN Reason: Constipation Last Admin: 02/28/21 09:33 Dose: 30 ml Documented by: Melatonin (Melatonin 3 Mg Tablet) 3 mg PO BEDTIME PRN PRN Reason: insomnia Last Admin: 02/20/21 20:01 Dose: 3 mg Documented by: Metoprolol Succinate (Metoprolol Succinate Er 25 Mg Tab.Er.24h) 25 mg PO DAILY [facility]; Protocol Last Admin: 03/09/21 09:38 Dose: 25 mg Documented by: Mirtazapine (Mirtazapine 15 Mg Tablet) 15 mg PO BEDTIME [facility] Last Admin: 03/08/21 21:24 Dose: 15 mg Documented by: Multi-Ingred Cream/Lotion/Oil/Oint (Mineral Oil/Petrolatum,White 106 Gm Tube) 1 appl TOPICAL BID [facility] Last Admin: 03/08/21 21:25 Dose: 1 appl Documented by: Patient Own Med ( Fish Oil 1200mg Caps ) 2 each PO DAILY [facility] Last Admin: 03/08/21 08:35 Dose: 2 each Documented by: Pt Own Med: Coq10 (100 Mg Cap) 1 each PO DAILY [facility] Last Admin: 03/08/21 08:35 Dose: 1 each Documented by: Olanzapine (Olanzapine 2.5 Mg Tablet) 2.5 mg PO Q6H PRN PRN Reason: agitation, anxiety Last Admin: 02/23/21 04:40 Dose: 2.5 mg Documented by: Olanzapine (Olanzapine 5 Mg Tablet) 5 mg PO BEDTIME [facility] Last Admin: 03/08/21 21:24 Dose: 5 mg Documented by: Pharmacy Consult (Consult Rx Perform Med Rec) 1 each MISCELLANE ONCE PRN PRN Reason: Consult order Timolol Maleate (Timolol Maleate 0.5 % Oph Cathryn 5 Ml Drbtl) 1 drop EYE-RIGHT DAILY [facility] Last Admin: 03/08/21 08:35 Dose: 1 drop Documented by: Trazodone HCl (Trazodone Hcl 50 Mg Tablet) 50 mg PO BEDTIME PRN PRN Reason: Insomnia Allergies Allergies Allergy/AdvReac Type Severity Reaction Status Date / Time melons Allergy Unknown throat Uncoded 08/13/11 00:00 sweling Assessment & Plan Assessment & Plan (1) Acute DVT (deep venous thrombosis): Status: Acute Code(s): I82.409 - Acute embolism and thrombosis of unspecified deep veins of unspecified lower extremity Assessment and Plan: 80 yo F who is currently being treated for anxiety at [facility], has now developed right lower extremity edema, found to have DVT # acute DVT - most likely 2/2 hospitalization - no evidence of respiratory abnormality or PE - will start of therapeutic Lovenox - consult hematology for anticoagulation # Reported AMS - no evidence of AMS on my exam, pt alert oriented x3 - Head CT negative - monitor mentation - continue psych meds per [facility] PLAN: 03/06- pt much less psychotic, less anxious, less dysphoric. no complications with covid. no signs of respiratory distress. continue to monitor VS, including 02sat, rr q6hrs. No changes in psych meds. Continue current plans with no changes today. Continue isolation 03/08: Continue current plans and regimen. Continue isolation 03/09: Continue current status and treatment plan and isolation I spent minutes with the patient and/or on the patient floor today, greater than?50% of which was spent counseling/coordinating care. Reason for contiued inpatient stay Substantial Risk for: other
[2021-03-09] MEDS: Mirtazapine 15 MG TABLET PO (21:22)
[2021-03-09] MEDS: OLANZapine 5 MG TABLET PO (21:22)
[2021-03-10] VITALS (8 sets, daily range): BP systolic 137–145; BP diastolic 57–85; PULSE 72–98; RESP 14–18; TEMP 36.8–37.7; O2SAT 96–99
[2021-03-10] MEDS: Famotidine 20 MG TABLET PO ×2 (09:54→20:47)
[2021-03-10] MEDS: Aspirin 81 MG TAB.CHEW PO (09:54)
[2021-03-10] MEDS: Metoprolol Succinate ER 25 MG TAB.ER.24H PO (09:54)
[2021-03-10] MEDS: lisinopriL 5 MG TABLET PO (09:54)
[2021-03-10] MEDS: Apixaban 5 MG TABLET PO ×2 (09:54→20:46)
[2021-03-10] MEDS: clonazePAM 0.5 MG TABLET 0.25 MG PO ×2 (09:55→20:48)
[2021-03-10] MEDS: Losartan Potassium 50 MG TABLET 100 MG PO (09:55)
[2021-03-10] MEDS: Ezetimibe 10 MG TABLET PO (09:55)
[2021-03-10] MEDS: timoloL maleate 0.5 % Oph Sol 5 ML DRBTL 1 DROP EYE-RIGHT (09:56)
[2021-03-10] MEDS: Clopidogrel Bisulfate 75 MG TABLET PO (09:56)
[2021-03-10] MEDS: Mineral Oil/Petrolatum,White 106 GM Tube 1 APPL TOPICAL ×2 (09:56→21:02)
--- NOTE | 2021-03-10 16:10 | HO.PSYCHPN ---
Subjective Subjective Date of Service: 03/10/21 Reason For Visit: Anxiety Disorder Subjective Notes: Conditional Voluntary Interim History: The nursing staff reported that the patient has being COVID 19 positive and she had a low grade temperature today early in the morning. She has also mild upper respiratory symptoms with nasal discharge. On interview, the patient was anxious due to her new diagnosis but she feels okay, she is looking for placement pretty soon Mental Status Exam Mental Status Exam Patient Appearance: Well Grooomed Patient Orientation: Person Level of Consciousness: Awake Patient Behavior: Cooperative Mood Description: Depressed Affect Description: Constricted Patient Cognition Impaired: Yes Ability to Follow Directions: Good Speech Pattern: Clear Memory Description: Intact Hallucinations: None Delusions: Not Present Thought Process: Distracted and Linear Thought Content: positive for Circumstantial Judgement: Fair Diagnostics Vital Signs (24Hr): Vital Signs - 24 hr 03/09/21 18:00 03/09/21 20:00 03/10/21 00:00 Temperature 100 F 99.8 F Pulse Rate 84 84 Respiratory Rate 16 18 16 Blood Pressure 133/60 145/64 H Pulse Oximetry 98 96 03/10/21 04:00 03/10/21 09:53 03/10/21 09:54 Temperature 98.8 F 99.1 F Pulse Rate 72 98 98 Respiratory Rate 14 17 Blood Pressure 143/65 H 143/85 H 143/85 H Pulse Oximetry 98 97 03/10/21 09:55 03/10/21 15:04 Temperature 99.4 F Pulse Rate 98 84 Respiratory Rate 17 Blood Pressure 143/85 H 137/57 L Pulse Oximetry 98 BMI result Body Mass Index 20.0 Labs Results: 03/04/21 12:59 03/04/21 12:59 Imaging Radiology Impressions: ITS Impressions Head CT 02/19/21 08:57 IMPRESSION: No acute findings. Mild generalized atrophy and nonspecific periventricular white matter disease. 1 cm lucent lesion in the left parietal bone. Brain MRI 02/19/21 17:28 IMPRESSION: 1. No acute intracranial abnormalities. 2. Mild to moderate underlying microangiopathy. 3. Qualitatively, there is moderate generalized cerebral volume loss. Quantitative analysis of the NeuroQuant series will be postprocessed with findings dictated as an addendum. Brain MRI 02/19/21 17:56 IMPRESSION: 1. No acute intracranial abnormalities. 2. Mild to moderate underlying microangiopathy. 3. Qualitatively, there is moderate generalized cerebral volume loss. Quantitative analysis of the NeuroQuant series will be postprocessed with findings dictated as an addendum. Venous Duplex 02/28/21 20:42 IMPRESSION: There is deep vein thrombosis involving peroneal and posterior tibial veins of the calf. However, no evidence of thrombosis within the popliteal or femoral veins. Note: We have been attempting to provide a direct [id number] communication of test results. Contact was made. The critical test result was discussed with Dr. Lynn at 9:50 PM on 02/28/2021 and it was ascertained that the content and the importance of the findings was understood at the time of the direct communication. Head CT 02/28/21 21:30 IMPRESSION: No acute intracranial pathology. Medications Medications Current Medications Acetaminophen (Acetaminophen 325 Mg Tablet) 650 mg PO Q6H PRN PRN Reason: Pain, Mild (Pain Scale 1-3) Last Admin: 02/26/21 20:37 Dose: 650 mg Documented by: Al Hydroxide/Mg Hydroxide (Magnesium Hydrox/Alum Hydrox 30 Ml Oral.Susp) 30 ml PO Q6H PRN PRN Reason: Heartburn/Nausea Apixaban (Apixaban 5 Mg Tablet) 5 mg PO BID [facility] Last Admin: 03/10/21 09:54 Dose: 5 mg Documented by: Aspirin (Aspirin 81 Mg Tab.Chew) 81 mg PO DAILY [facility] Last Admin: 03/10/21 09:54 Dose: 81 mg Documented by: Benzocaine (Throat Lozenge, Medicated Lozenge) 1 lozenge MUCOUS MEM Q2H PRN PRN Reason: Sore Throat Last Admin: 03/04/21 18:00 Dose: 1 lozenge Documented by: Clonazepam (Clonazepam 0.5 Mg Tablet) 0.25 mg PO BID [facility] Last Admin: 03/10/21 09:55 Dose: 0.25 mg Documented by: Clopidogrel Bisulfate (Clopidogrel Bisulfate 75 Mg Tablet) 75 mg PO DAILY [facility] Last Admin: 03/10/21 09:56 Dose: 75 mg Documented by: Docusate Sodium (Docusate Sodium 100 Mg Capsule) 100 mg PO DAILY PRN PRN Reason: Constipation Last Admin: 02/28/21 09:34 Dose: 100 mg Documented by: Ezetimibe (Ezetimibe 10 Mg Tablet) 10 mg PO DAILY [facility] Last Admin: 03/10/21 09:55 Dose: 10 mg Documented by: Famotidine (Famotidine 20 Mg Tablet) 20 mg PO BID [facility] Last Admin: 03/10/21 09:54 Dose: 20 mg Documented by: Ibuprofen (Ibuprofen 600 Mg Tablet) 600 mg PO Q8H PRN PRN Reason: Pain, Moderate (Pain Scale 4-6 Last Admin: 02/27/21 20:07 Dose: 600 mg Documented by: Lisinopril (Lisinopril 5 Mg Tablet) 5 mg PO DAILY [facility]; Protocol Last Admin: 03/10/21 09:54 Dose: 5 mg Documented by: Losartan Potassium (Losartan Potassium 50 Mg Tablet) 100 mg PO DAILY [facility]; Protocol Last Admin: 03/10/21 09:55 Dose: 100 mg Documented by: Magnesium Hydroxide (Milk Of Magnesia 30 Ml Oral.Susp) 30 ml PO DAILY PRN PRN Reason: Constipation Last Admin: 02/28/21 09:33 Dose: 30 ml Documented by: Melatonin (Melatonin 3 Mg Tablet) 3 mg PO BEDTIME PRN PRN Reason: insomnia Last Admin: 02/20/21 20:01 Dose: 3 mg Documented by: Metoprolol Succinate (Metoprolol Succinate Er 25 Mg Tab.Er.24h) 25 mg PO DAILY [facility]; Protocol Last Admin: 03/10/21 09:54 Dose: 25 mg Documented by: Mirtazapine (Mirtazapine 15 Mg Tablet) 15 mg PO BEDTIME [facility] Last Admin: 03/09/21 21:22 Dose: 15 mg Documented by: Multi-Ingred Cream/Lotion/Oil/Oint (Mineral Oil/Petrolatum,White 106 Gm Tube) 1 appl TOPICAL BID [facility] Last Admin: 03/10/21 09:56 Dose: 1 appl Documented by: Patient Own Med ( Fish Oil 1200mg Caps ) 2 each PO DAILY [facility] Last Admin: 03/10/21 09:56 Dose: 2 each Documented by: Pt Own Med: Coq10 (100 Mg Cap) 1 each PO DAILY [facility] Last Admin: 03/10/21 09:56 Dose: 1 each Documented by: Olanzapine (Olanzapine 2.5 Mg Tablet) 2.5 mg PO Q6H PRN PRN Reason: agitation, anxiety Last Admin: 02/23/21 04:40 Dose: 2.5 mg Documented by: Olanzapine (Olanzapine 5 Mg Tablet) 5 mg PO BEDTIME [facility] Last Admin: 12/26/21 21:22 Dose: 5 mg Documented by: Pharmacy Consult (Consult Rx Perform Med Rec) 1 each MISCELLANE ONCE PRN PRN Reason: Consult order Timolol Maleate (Timolol Maleate 0.5 % Oph Cathryn 5 Ml Drbtl) 1 drop EYE-RIGHT DAILY [facility] Last Admin: 03/10/21 09:56 Dose: 1 drop Documented by: Trazodone HCl (Trazodone Hcl 50 Mg Tablet) 50 mg PO BEDTIME PRN PRN Reason: Insomnia Allergies Allergies Allergy/AdvReac Type Severity Reaction Status Date / Time melons Allergy Unknown throat Uncoded 08/13/11 00:00 sweling Assessment & Plan Assessment & Plan (1) Acute DVT (deep venous thrombosis): Status: Acute Code(s): I82.409 - Acute embolism and thrombosis of unspecified deep veins of unspecified lower extremity Assessment and Plan: 80 yo F who is currently being treated for anxiety at [facility], has now developed right lower extremity edema, found to have DVT # acute DVT - most likely 2/2 hospitalization - no evidence of respiratory abnormality or PE - will start of therapeutic Lovenox - consult hematology for anticoagulation # Reported AMS - no evidence of AMS on my exam, pt alert oriented x3 - Head CT negative - monitor mentation - continue psych meds per [facility] PLAN: pt much less psychotic, less anxious, less dysphoric. no complications with covid. no signs of respiratory distress. continue to monitor VS, including 02sat, rr q6hrs. No changes in psych meds. I spent minutes with the patient and/or on the patient floor today, greater than?50% of which was spent counseling/coordinating care. Reason for contiued inpatient stay Substantial Risk for: inability to function, rapid decompensation and med/psych decompensation
[2021-03-10] MEDS: OLANZapine 5 MG TABLET PO (20:47)
[2021-03-10] MEDS: Mirtazapine 15 MG TABLET PO (20:47)
[2021-03-11] VITALS (7 sets, daily range): BP systolic 114–124; BP diastolic 56–69; PULSE 77–92; RESP 16–18; TEMP 36–36.9; O2SAT 95–99
[2021-03-11] MEDS: lisinopriL 5 MG TABLET PO (09:30)
[2021-03-11] MEDS: Apixaban 5 MG TABLET PO ×2 (09:30→21:59)
[2021-03-11] MEDS: Metoprolol Succinate ER 25 MG TAB.ER.24H PO (09:30)
[2021-03-11] MEDS: Clopidogrel Bisulfate 75 MG TABLET PO (09:32)
[2021-03-11] MEDS: Losartan Potassium 50 MG TABLET 100 MG PO (09:32)
[2021-03-11] MEDS: Famotidine 20 MG TABLET PO ×2 (09:32→22:00)
[2021-03-11] MEDS: Aspirin 81 MG TAB.CHEW PO (09:33)
[2021-03-11] MEDS: clonazePAM 0.5 MG TABLET 0.25 MG PO ×2 (09:33→22:00)
[2021-03-11] MEDS: Ezetimibe 10 MG TABLET PO (09:35)
[2021-03-11] MEDS: timoloL maleate 0.5 % Oph Sol 5 ML DRBTL 1 DROP EYE-RIGHT (09:38)
--- NOTE | 2021-03-11 14:51 | HO.PSYCHPN ---
Subjective Subjective Date of Service: 03/11/21 Reason For Visit: Anxiety Disorder Subjective Notes: Conditional Voluntary Interim History: The nursing staff reported that the patient had being pleasant and cooperative, able to tolerate the restrictions of COVID 19. On interview, the patient was hard of hearing but she was pleasant and cooperative. Mental Status Exam Mental Status Exam Patient Appearance: Well Grooomed Patient Orientation: Person Level of Consciousness: Awake Patient Behavior: Cooperative Mood Description: Constricted Affect Description: Constricted Patient Cognition Impaired: Yes Ability to Follow Directions: Good Speech Pattern: Clear Hallucinations: None Delusions: Not Present Thought Process: Linear Thought Content: positive for Circumstantial Judgement: Fair Diagnostics Vital Signs (24Hr): Vital Signs - 24 hr 03/10/21 15:04 03/10/21 18:00 03/10/21 20:00 Temperature 99.4 F 98.2 F 98.2 F Pulse Rate 84 82 82 Respiratory Rate 17 18 18 Blood Pressure 137/57 L 144/68 H 144/68 H Pulse Oximetry 98 99 99 03/11/21 00:57 03/11/21 05:15 03/11/21 06:00 Temperature 98.2 F 96.8 F 98.1 F Pulse Rate 86 77 92 Respiratory Rate 16 17 16 Blood Pressure 115/69 124/56 L 116/66 Pulse Oximetry 96 95 98 03/11/21 09:30 03/11/21 09:32 Temperature Pulse Rate 92 92 Respiratory Rate Blood Pressure 116/66 116/66 Pulse Oximetry BMI result Body Mass Index 20.0 Labs Results: 03/04/21 12:59 03/04/21 12:59 Imaging Radiology Impressions: ITS Impressions Head CT 02/19/21 08:57 IMPRESSION: No acute findings. Mild generalized atrophy and nonspecific periventricular white matter disease. 1 cm lucent lesion in the left parietal bone. Brain MRI 02/19/21 17:28 IMPRESSION: 1. No acute intracranial abnormalities. 2. Mild to moderate underlying microangiopathy. 3. Qualitatively, there is moderate generalized cerebral volume loss. Quantitative analysis of the NeuroQuant series will be postprocessed with findings dictated as an addendum. Brain MRI 02/19/21 17:56 IMPRESSION: 1. No acute intracranial abnormalities. 2. Mild to moderate underlying microangiopathy. 3. Qualitatively, there is moderate generalized cerebral volume loss. Quantitative analysis of the NeuroQuant series will be postprocessed with findings dictated as an addendum. Venous Duplex 02/28/21 20:42 IMPRESSION: There is deep vein thrombosis involving peroneal and posterior tibial veins of the calf. However, no evidence of thrombosis within the popliteal or femoral veins. Note: We have been attempting to provide a direct [id number] communication of test results. Contact was made. The critical test result was discussed with Dr. Lynn at 9:50 PM on 02/28/2021 and it was ascertained that the content and the importance of the findings was understood at the time of the direct communication. Head CT 02/28/21 21:30 IMPRESSION: No acute intracranial pathology. Medications Medications Current Medications Acetaminophen (Acetaminophen 325 Mg Tablet) 650 mg PO Q6H PRN PRN Reason: Pain, Mild (Pain Scale 1-3) Last Admin: 02/26/21 20:37 Dose: 650 mg Documented by: Al Hydroxide/Mg Hydroxide (Magnesium Hydrox/Alum Hydrox 30 Ml Oral.Susp) 30 ml PO Q6H PRN PRN Reason: Heartburn/Nausea Apixaban (Apixaban 5 Mg Tablet) 5 mg PO BID [facility] Last Admin: 03/11/21 09:30 Dose: 5 mg Documented by: Aspirin (Aspirin 81 Mg Tab.Chew) 81 mg PO DAILY [facility] Last Admin: 03/11/21 09:33 Dose: 81 mg Documented by: Benzocaine (Throat Lozenge, Medicated Lozenge) 1 lozenge MUCOUS MEM Q2H PRN PRN Reason: Sore Throat Last Admin: 03/04/21 18:00 Dose: 1 lozenge Documented by: Clonazepam (Clonazepam 0.5 Mg Tablet) 0.25 mg PO BID [facility] Last Admin: 03/11/21 09:33 Dose: 0.25 mg Documented by: Clopidogrel Bisulfate (Clopidogrel Bisulfate 75 Mg Tablet) 75 mg PO DAILY [facility] Last Admin: 03/11/21 09:32 Dose: 75 mg Documented by: Docusate Sodium (Docusate Sodium 100 Mg Capsule) 100 mg PO DAILY PRN PRN Reason: Constipation Last Admin: 02/28/21 09:34 Dose: 100 mg Documented by: Ezetimibe (Ezetimibe 10 Mg Tablet) 10 mg PO DAILY [facility] Last Admin: 03/11/21 09:35 Dose: 10 mg Documented by: Famotidine (Famotidine 20 Mg Tablet) 20 mg PO BID [facility] Last Admin: 03/11/21 09:32 Dose: 20 mg Documented by: Ibuprofen (Ibuprofen 600 Mg Tablet) 600 mg PO Q8H PRN PRN Reason: Pain, Moderate (Pain Scale 4-6 Last Admin: 02/27/21 20:07 Dose: 600 mg Documented by: Lisinopril (Lisinopril 5 Mg Tablet) 5 mg PO DAILY [facility]; Protocol Last Admin: 03/11/21 09:30 Dose: 5 mg Documented by: Losartan Potassium (Losartan Potassium 50 Mg Tablet) 100 mg PO DAILY [facility]; Protocol Last Admin: 03/11/21 09:32 Dose: 100 mg Documented by: Magnesium Hydroxide (Milk Of Magnesia 30 Ml Oral.Susp) 30 ml PO DAILY PRN PRN Reason: Constipation Last Admin: 02/28/21 09:33 Dose: 30 ml Documented by: Melatonin (Melatonin 3 Mg Tablet) 3 mg PO BEDTIME PRN PRN Reason: insomnia Last Admin: 02/20/21 20:01 Dose: 3 mg Documented by: Metoprolol Succinate (Metoprolol Succinate Er 25 Mg Tab.Er.24h) 25 mg PO DAILY [facility]; Protocol Last Admin: 03/11/21 09:30 Dose: 25 mg Documented by: Mirtazapine (Mirtazapine 15 Mg Tablet) 15 mg PO BEDTIME [facility] Last Admin: 03/10/21 20:47 Dose: 15 mg Documented by: Multi-Ingred Cream/Lotion/Oil/Oint (Mineral Oil/Petrolatum,White 106 Gm Tube) 1 appl TOPICAL BID [facility] Last Admin: 03/10/21 21:02 Dose: 1 appl Documented by: Patient Own Med ( Fish Oil 1200mg Caps ) 2 each PO DAILY [facility] Last Admin: 03/11/21 09:35 Dose: 2 each Documented by: Pt Own Med: Coq10 (100 Mg Cap) 1 each PO DAILY [facility] Last Admin: 03/11/21 09:38 Dose: 1 each Documented by: Olanzapine (Olanzapine 2.5 Mg Tablet) 2.5 mg PO Q6H PRN PRN Reason: agitation, anxiety Last Admin: 02/23/21 04:40 Dose: 2.5 mg Documented by: Olanzapine (Olanzapine 5 Mg Tablet) 5 mg PO BEDTIME [facility] Last Admin: 03/10/21 20:47 Dose: 5 mg Documented by: Pharmacy Consult (Consult Rx Perform Med Rec) 1 each MISCELLANE ONCE PRN PRN Reason: Consult order Timolol Maleate (Timolol Maleate 0.5 % Oph Cathryn 5 Ml Drbtl) 1 drop EYE-RIGHT DAILY [facility] Last Admin: 03/11/21 09:38 Dose: 1 drop Documented by: Trazodone HCl (Trazodone Hcl 50 Mg Tablet) 50 mg PO BEDTIME PRN PRN Reason: Insomnia Allergies Allergies Allergy/AdvReac Type Severity Reaction Status Date / Time melons Allergy Unknown throat Uncoded 08/13/11 00:00 sweling Assessment & Plan Assessment & Plan (1) Acute DVT (deep venous thrombosis): Status: Acute Code(s): I82.409 - Acute embolism and thrombosis of unspecified deep veins of unspecified lower extremity Assessment and Plan: 80 yo F who is currently being treated for anxiety at [facility], has now developed right lower extremity edema, found to have DVT # acute DVT - most likely 2/2 hospitalization - no evidence of respiratory abnormality or PE - will start of therapeutic Lovenox - consult hematology for anticoagulation # Reported AMS - no evidence of AMS on my exam, pt alert oriented x3 - Head CT negative - monitor mentation - continue psych meds per [facility] PLAN: pt much less psychotic, less anxious, less dysphoric. no complications with covid. no signs of respiratory distress. continue to monitor VS, including 02sat, rr q6hrs. No changes in psych meds. I spent minutes with the patient and/or on the patient floor today, greater than?50% of which was spent counseling/coordinating care. Reason for contiued inpatient stay Substantial Risk for: inability to function, rapid decompensation and med/psych decompensation
[2021-03-11] MEDS: Mirtazapine 15 MG TABLET PO (22:00)
[2021-03-11] MEDS: OLANZapine 5 MG TABLET PO (22:00)
[2021-03-12] VITALS (9 sets, daily range): BP systolic 102–147; BP diastolic 52–70; PULSE 77–89; RESP 14–17; TEMP 36.6–37.2; O2SAT 95–98
[2021-03-12] MEDS: timoloL maleate 0.5 % Oph Sol 5 ML DRBTL 1 DROP EYE-RIGHT (08:20)
[2021-03-12] MEDS: Mineral Oil/Petrolatum,White 106 GM Tube 1 APPL TOPICAL (08:21)
[2021-03-12] MEDS: clonazePAM 0.5 MG TABLET 0.25 MG PO ×2 (08:22→20:35)
[2021-03-12] MEDS: lisinopriL 5 MG TABLET PO (08:23)
[2021-03-12] MEDS: Metoprolol Succinate ER 25 MG TAB.ER.24H PO (08:23)
[2021-03-12] MEDS: Clopidogrel Bisulfate 75 MG TABLET PO (08:24)
[2021-03-12] MEDS: Ezetimibe 10 MG TABLET PO (08:24)
[2021-03-12] MEDS: Famotidine 20 MG TABLET PO ×2 (08:24→20:36)
[2021-03-12] MEDS: Losartan Potassium 50 MG TABLET 100 MG PO (08:25)
[2021-03-12] MEDS: Aspirin 81 MG TAB.CHEW PO (08:25)
[2021-03-12] MEDS: Apixaban 5 MG TABLET PO ×2 (08:25→20:35)
--- NOTE | 2021-03-12 13:57 | P.PNPSI_ITS ---
Subjective Subjective Date of Service: 03/12/21 Reason For Visit: Anxiety Disorder Subjective Notes: Conditional Voluntary Interim History: The nursing staff reported that she is on her room, slightly anxious at times but able to cope with COVID-19 restrictions. On interview, she denied new symptoms. Mental Status Exam Mental Status Exam Patient Appearance: Well Grooomed Patient Orientation: Person Level of Consciousness: Awake Patient Behavior: Cooperative Mood Description: Depressed Affect Description: Constricted Ability to Follow Directions: Good Speech Pattern: Appropriate Hallucinations: None Delusions: Not Present Thought Process: Linear Thought Content: positive for Circumstantial Judgement: Fair Diagnostics Vital Signs (24Hr): Vital Signs - 24 hr 03/11/21 20:00 03/12/21 01:28 03/12/21 04:00 Temperature 98.5 F 98.9 F 98.9 F Pulse Rate 86 85 79 Respiratory Rate 18 16 16 Blood Pressure 114/62 114/52 L 102/57 L Pulse Oximetry 96 95 96 03/12/21 06:00 03/12/21 08:00 03/12/21 08:23 Temperature 98.6 F 98.6 F Pulse Rate 89 89 89 Respiratory Rate 14 Blood Pressure 135/70 135/70 135/70 Pulse Oximetry 98 98 03/12/21 08:25 03/12/21 12:00 Temperature 98.2 F Pulse Rate 89 78 Respiratory Rate 14 Blood Pressure 135/70 103/60 Pulse Oximetry 98 BMI result Body Mass Index 20.0 Labs Results: 03/04/21 12:59 03/04/21 12:59 Imaging Radiology Impressions: ITS Impressions Head CT 02/19/21 08:57 IMPRESSION: No acute findings. Mild generalized atrophy and nonspecific periventricular white matter disease. 1 cm lucent lesion in the left parietal bone. Brain MRI 02/19/21 17:28 IMPRESSION: 1. No acute intracranial abnormalities. 2. Mild to moderate underlying microangiopathy. 3. Qualitatively, there is moderate generalized cerebral volume loss. Quantitative analysis of the NeuroQuant series will be postprocessed with findings dictated as an addendum. Brain MRI 02/19/21 17:56 IMPRESSION: 1. No acute intracranial abnormalities. 2. Mild to moderate underlying microangiopathy. 3. Qualitatively, there is moderate generalized cerebral volume loss. Quantitative analysis of the NeuroQuant series will be postprocessed with findings dictated as an addendum. Venous Duplex 02/28/21 20:42 IMPRESSION: There is deep vein thrombosis involving peroneal and posterior tibial veins of the calf. However, no evidence of thrombosis within the popliteal or femoral veins. Note: We have been attempting to provide a direct [id number] communication of test results. Contact was made. The critical test result was discussed with Dr. Lynn at 9:50 PM on 02/28/2021 and it was ascertained that the content and the importance of the findings was understood at the time of the direct communication. Head CT 02/28/21 21:30 IMPRESSION: No acute intracranial pathology. Medications Medications Current Medications Acetaminophen (Acetaminophen 325 Mg Tablet) 650 mg PO Q6H PRN PRN Reason: Pain, Mild (Pain Scale 1-3) Last Admin: 02/26/21 20:37 Dose: 650 mg Documented by: Al Hydroxide/Mg Hydroxide (Magnesium Hydrox/Alum Hydrox 30 Ml Oral.Susp) 30 ml PO Q6H PRN PRN Reason: Heartburn/Nausea Apixaban (Apixaban 5 Mg Tablet) 5 mg PO BID [facility] Last Admin: 03/12/21 08:25 Dose: 5 mg Documented by: Aspirin (Aspirin 81 Mg Tab.Chew) 81 mg PO DAILY [facility] Last Admin: 03/12/21 08:25 Dose: 81 mg Documented by: Benzocaine (Throat Lozenge, Medicated Lozenge) 1 lozenge MUCOUS MEM Q2H PRN PRN Reason: Sore Throat Last Admin: 03/04/21 18:00 Dose: 1 lozenge Documented by: Clonazepam (Clonazepam 0.5 Mg Tablet) 0.25 mg PO BID [facility] Last Admin: 03/12/21 08:22 Dose: 0.25 mg Documented by: Clopidogrel Bisulfate (Clopidogrel Bisulfate 75 Mg Tablet) 75 mg PO DAILY [facility] Last Admin: 03/12/21 08:24 Dose: 75 mg Documented by: Docusate Sodium (Docusate Sodium 100 Mg Capsule) 100 mg PO DAILY PRN PRN Reason: Constipation Last Admin: 02/28/21 09:34 Dose: 100 mg Documented by: Ezetimibe (Ezetimibe 10 Mg Tablet) 10 mg PO DAILY [facility] Last Admin: 03/12/21 08:24 Dose: 10 mg Documented by: Famotidine (Famotidine 20 Mg Tablet) 20 mg PO BID [facility] Last Admin: 03/12/21 08:24 Dose: 20 mg Documented by: Ibuprofen (Ibuprofen 600 Mg Tablet) 600 mg PO Q8H PRN PRN Reason: Pain, Moderate (Pain Scale 4-6 Last Admin: 02/27/21 20:07 Dose: 600 mg Documented by: Lisinopril (Lisinopril 5 Mg Tablet) 5 mg PO DAILY [facility]; Protocol Last Admin: 03/12/21 08:23 Dose: 5 mg Documented by: Losartan Potassium (Losartan Potassium 50 Mg Tablet) 100 mg PO DAILY [facility]; Protocol Last Admin: 03/12/21 08:25 Dose: 100 mg Documented by: Magnesium Hydroxide (Milk Of Magnesia 30 Ml Oral.Susp) 30 ml PO DAILY PRN PRN Reason: Constipation Last Admin: 02/28/21 09:33 Dose: 30 ml Documented by: Melatonin (Melatonin 3 Mg Tablet) 3 mg PO BEDTIME PRN PRN Reason: insomnia Last Admin: 02/20/21 20:01 Dose: 3 mg Documented by: Metoprolol Succinate (Metoprolol Succinate Er 25 Mg Tab.Er.24h) 25 mg PO DAILY [facility]; Protocol Last Admin: 03/12/21 08:23 Dose: 25 mg Documented by: Mirtazapine (Mirtazapine 15 Mg Tablet) 15 mg PO BEDTIME [facility] Last Admin: 03/11/21 22:00 Dose: 15 mg Documented by: Multi-Ingred Cream/Lotion/Oil/Oint (Mineral Oil/Petrolatum,White 106 Gm Tube) 1 appl TOPICAL BID [facility] Last Admin: 03/12/21 08:21 Dose: 1 appl Documented by: Patient Own Med ( Fish Oil 1200mg Caps ) 2 each PO DAILY [facility] Last Admin: 03/12/21 08:20 Dose: 2 each Documented by: Pt Own Med: Coq10 (100 Mg Cap) 1 each PO DAILY [facility] Last Admin: 03/12/21 10:11 Dose: 1 each Documented by: Olanzapine (Olanzapine 2.5 Mg Tablet) 2.5 mg PO Q6H PRN PRN Reason: agitation, anxiety Last Admin: 02/23/21 04:40 Dose: 2.5 mg Documented by: Olanzapine (Olanzapine 5 Mg Tablet) 5 mg PO BEDTIME [facility] Last Admin: 03/11/21 22:00 Dose: 5 mg Documented by: Pharmacy Consult (Consult Rx Perform Med Rec) 1 each MISCELLANE ONCE PRN PRN Reason: Consult order Timolol Maleate (Timolol Maleate 0.5 % Oph Cathryn 5 Ml Drbtl) 1 drop EYE-RIGHT DAILY [facility] Last Admin: 03/12/21 08:20 Dose: 1 drop Documented by: Trazodone HCl (Trazodone Hcl 50 Mg Tablet) 50 mg PO BEDTIME PRN PRN Reason: Insomnia Allergies Allergies Allergy/AdvReac Type Severity Reaction Status Date / Time melons Allergy Unknown throat Uncoded 08/13/11 00:00 sweling Assessment & Plan Assessment & Plan (1) Acute DVT (deep venous thrombosis): Status: Acute Code(s): I82.409 - Acute embolism and thrombosis of unspecified deep veins of unspecified lower extremity Assessment and Plan: 80 yo F who is currently being treated for anxiety at [facility], has now developed right lower extremity edema, found to have DVT # acute DVT - most likely 2/2 hospitalization - no evidence of respiratory abnormality or PE - will start of therapeutic Lovenox - consult hematology for anticoagulation # Reported AMS - no evidence of AMS on my exam, pt alert oriented x3 - Head CT negative - monitor mentation - continue psych meds per [facility] PLAN: pt much less psychotic, less anxious, less dysphoric. no complications with covid. no signs of respiratory distress. continue to monitor VS, including 02sat, rr q6hrs. No changes in psych meds. I spent minutes with the patient and/or on the patient floor today, greater than?50% of which was spent counseling/coordinating care. Reason for contiued inpatient stay Substantial Risk for: inability to function, rapid decompensation and med/psych decompensation
[2021-03-12] MEDS: Mirtazapine 15 MG TABLET PO (20:37)
[2021-03-12] MEDS: OLANZapine 5 MG TABLET PO (20:37)
[2021-03-13 05:00] VITALS: BP 91/52; PULSE 78; RESP 16; TEMP 37.3; O2SAT 97
[2021-03-13 06:00] VITALS: BP 132/68; PULSE 99; RESP 16; TEMP 36.7; O2SAT 95
[2021-03-13 08:00] VITALS: BP 132/68; PULSE 99; RESP 16; TEMP 36.7; O2SAT 98
[2021-03-13 09:46] VITALS: BP 132/68; PULSE 99
[2021-03-13] MEDS: Metoprolol Succinate ER 25 MG TAB.ER.24H PO (09:46)
[2021-03-13] MEDS: Clopidogrel Bisulfate 75 MG TABLET PO (09:49)
[2021-03-13] MEDS: Losartan Potassium 50 MG TABLET 100 MG PO (09:49)
[2021-03-13] MEDS: Aspirin 81 MG TAB.CHEW PO (09:49)
[2021-03-13] MEDS: Ezetimibe 10 MG TABLET PO (09:49)
[2021-03-13] MEDS: lisinopriL 5 MG TABLET PO (09:49)
[2021-03-13] MEDS: Apixaban 5 MG TABLET PO ×2 (09:49→20:55)
[2021-03-13] MEDS: Famotidine 20 MG TABLET PO ×2 (09:49→20:56)
[2021-03-13] MEDS: clonazePAM 0.5 MG TABLET 0.25 MG PO ×2 (09:49→20:56)
[2021-03-13] MEDS: timoloL maleate 0.5 % Oph Sol 5 ML DRBTL 1 DROP EYE-RIGHT (10:16)
[2021-03-13] MEDS: Mineral Oil/Petrolatum,White 106 GM Tube 1 APPL TOPICAL (10:16)
[2021-03-13 12:00] VITALS: BP 140/64; PULSE 98; RESP 16; TEMP 36.7; O2SAT 98
--- NOTE | 2021-03-13 13:54 | HO.PSYCHPN ---
Subjective Subjective Date of Service: 03/13/21 Reason For Visit: Anxiety Disorder Subjective Notes: Conditional Voluntary Interim History: The nursing staff reported the patient has been able to cope with the restrictions of COVID 19. On interview, I explained that she has to be on isolation for several days since she will be discharged to her family and there is minor children who cannot be vaccinated. Most likely she would be discharged next week. Later on, the patient was crying since she wanted to be discharged as soon as possible. Mental Status Exam Mental Status Exam Patient Appearance: Well Grooomed Patient Orientation: Person Level of Consciousness: Awake Patient Behavior: Appropriate Mood Description: Withdrawn Affect Description: Constricted Patient Cognition Impaired: Yes Ability to Follow Directions: Good Speech Pattern: Clear Hallucinations: None Delusions: Not Present Thought Content: positive for Circumstantial and positive for Poverty of Content Judgement: Fair Diagnostics Vital Signs (24Hr): Vital Signs - 24 hr 03/12/21 16:00 03/12/21 21:26 03/13/21 05:00 Temperature 98.3 F 97.8 F 99.2 F Pulse Rate 84 77 78 Respiratory Rate 16 17 16 Blood Pressure 128/64 147/69 H 91/52 L Pulse Oximetry 96 96 97 03/13/21 06:00 03/13/21 08:00 03/13/21 09:46 Temperature 98.0 F 98.0 F Pulse Rate 99 99 99 Respiratory Rate 16 16 Blood Pressure 132/68 132/68 132/68 Pulse Oximetry 95 98 BMI result Body Mass Index 20.0 Labs Results: 03/04/21 12:59 03/04/21 12:59 Imaging Radiology Impressions: ITS Impressions Head CT 02/19/21 08:57 IMPRESSION: No acute findings. Mild generalized atrophy and nonspecific periventricular white matter disease. 1 cm lucent lesion in the left parietal bone. Brain MRI 02/19/21 17:28 IMPRESSION: 1. No acute intracranial abnormalities. 2. Mild to moderate underlying microangiopathy. 3. Qualitatively, there is moderate generalized cerebral volume loss. Quantitative analysis of the NeuroQuant series will be postprocessed with findings dictated as an addendum. Brain MRI 02/19/21 17:56 IMPRESSION: 1. No acute intracranial abnormalities. 2. Mild to moderate underlying microangiopathy. 3. Qualitatively, there is moderate generalized cerebral volume loss. Quantitative analysis of the NeuroQuant series will be postprocessed with findings dictated as an addendum. Venous Duplex 02/28/21 20:42 IMPRESSION: There is deep vein thrombosis involving peroneal and posterior tibial veins of the calf. However, no evidence of thrombosis within the popliteal or femoral veins. Note: We have been attempting to provide a direct musanccoi-fo-crcrjagwa communication of test results. Contact was made. The critical test result was discussed with Dr. Lynn at 9:50 PM on 02/28/2021 and it was ascertained that the content and the importance of the findings was understood at the time of the direct communication. Head CT 02/28/21 21:30 IMPRESSION: No acute intracranial pathology. Medications Medications Current Medications Acetaminophen (Acetaminophen 325 Mg Tablet) 650 mg PO Q6H PRN PRN Reason: Pain, Mild (Pain Scale 1-3) Last Admin: 02/26/21 20:37 Dose: 650 mg Documented by: Al Hydroxide/Mg Hydroxide (Magnesium Hydrox/Alum Hydrox 30 Ml Oral.Susp) 30 ml PO Q6H PRN PRN Reason: Heartburn/Nausea Apixaban (Apixaban 5 Mg Tablet) 5 mg PO BID [facility] Last Admin: 03/13/21 09:49 Dose: 5 mg Documented by: Aspirin (Aspirin 81 Mg Tab.Chew) 81 mg PO DAILY [facility] Last Admin: 03/13/21 09:49 Dose: 81 mg Documented by: Benzocaine (Throat Lozenge, Medicated Lozenge) 1 lozenge MUCOUS MEM Q2H PRN PRN Reason: Sore Throat Last Admin: 03/04/21 18:00 Dose: 1 lozenge Documented by: Clonazepam (Clonazepam 0.5 Mg Tablet) 0.25 mg PO BID [facility] Last Admin: 03/13/21 09:49 Dose: 0.25 mg Documented by: Clopidogrel Bisulfate (Clopidogrel Bisulfate 75 Mg Tablet) 75 mg PO DAILY [facility] Last Admin: 03/13/21 09:49 Dose: 75 mg Documented by: Docusate Sodium (Docusate Sodium 100 Mg Capsule) 100 mg PO DAILY PRN PRN Reason: Constipation Last Admin: 02/28/21 09:34 Dose: 100 mg Documented by: Ezetimibe (Ezetimibe 10 Mg Tablet) 10 mg PO DAILY [facility] Last Admin: 03/13/21 09:49 Dose: 10 mg Documented by: Famotidine (Famotidine 20 Mg Tablet) 20 mg PO BID [facility] Last Admin: 03/13/21 09:49 Dose: 20 mg Documented by: Ibuprofen (Ibuprofen 600 Mg Tablet) 600 mg PO Q8H PRN PRN Reason: Pain, Moderate (Pain Scale 4-6 Last Admin: 02/27/21 20:07 Dose: 600 mg Documented by: Lisinopril (Lisinopril 5 Mg Tablet) 5 mg PO DAILY [facility]; Protocol Last Admin: 03/13/21 09:49 Dose: 5 mg Documented by: Losartan Potassium (Losartan Potassium 50 Mg Tablet) 100 mg PO DAILY [facility]; Protocol Last Admin: 03/13/21 09:49 Dose: 100 mg Documented by: Magnesium Hydroxide (Milk Of Magnesia 30 Ml Oral.Susp) 30 ml PO DAILY PRN PRN Reason: Constipation Last Admin: 02/28/21 09:33 Dose: 30 ml Documented by: Melatonin (Melatonin 3 Mg Tablet) 3 mg PO BEDTIME PRN PRN Reason: insomnia Last Admin: 02/20/21 20:01 Dose: 3 mg Documented by: Metoprolol Succinate (Metoprolol Succinate Er 25 Mg Tab.Er.24h) 25 mg PO DAILY [facility]; Protocol Last Admin: 03/13/21 09:46 Dose: 25 mg Documented by: Mirtazapine (Mirtazapine 15 Mg Tablet) 15 mg PO BEDTIME [facility] Last Admin: 03/12/21 20:37 Dose: 15 mg Documented by: Multi-Ingred Cream/Lotion/Oil/Oint (Mineral Oil/Petrolatum,White 106 Gm Tube) 1 appl TOPICAL BID [facility] Last Admin: 03/13/21 10:16 Dose: 1 appl Documented by: Patient Own Med ( Fish Oil 1200mg Caps ) 2 each PO DAILY [facility] Last Admin: 03/13/21 10:16 Dose: 2 each Documented by: Pt Own Med: Coq10 (100 Mg Cap) 1 each PO DAILY [facility] Last Admin: 03/13/21 10:16 Dose: 1 each Documented by: Olanzapine (Olanzapine 2.5 Mg Tablet) 2.5 mg PO Q6H PRN PRN Reason: agitation, anxiety Last Admin: 02/23/21 04:40 Dose: 2.5 mg Documented by: Olanzapine (Olanzapine 5 Mg Tablet) 5 mg PO BEDTIME [facility] Last Admin: 03/12/21 20:37 Dose: 5 mg Documented by: Pharmacy Consult (Consult Rx Perform Med Rec) 1 each MISCELLANE ONCE PRN PRN Reason: Consult order Timolol Maleate (Timolol Maleate 0.5 % Oph Cathryn 5 Ml Drbtl) 1 drop EYE-RIGHT DAILY [facility] Last Admin: 03/13/21 10:16 Dose: 1 drop Documented by: Trazodone HCl (Trazodone Hcl 50 Mg Tablet) 50 mg PO BEDTIME PRN PRN Reason: Insomnia Allergies Allergies Allergy/AdvReac Type Severity Reaction Status Date / Time melons Allergy Unknown throat Uncoded 08/13/11 00:00 sweling Assessment & Plan Assessment & Plan (1) Acute DVT (deep venous thrombosis): Status: Acute Code(s): I82.409 - Acute embolism and thrombosis of unspecified deep veins of unspecified lower extremity Assessment and Plan: 80 yo F who is currently being treated for anxiety at [facility], has now developed right lower extremity edema, found to have DVT # acute DVT - most likely 2/2 hospitalization - no evidence of respiratory abnormality or PE - will start of therapeutic Lovenox - consult hematology for anticoagulation # Reported AMS - no evidence of AMS on my exam, pt alert oriented x3 - Head CT negative - monitor mentation - continue psych meds per [facility] PLAN: pt much less psychotic, less anxious, less dysphoric. no complications with covid. no signs of respiratory distress. continue to monitor VS, including 02sat, rr q6hrs. No changes in psych meds. I spent minutes with the patient and/or on the patient floor today, greater than?50% of which was spent counseling/coordinating care. Reason for contiued inpatient stay Substantial Risk for: inability to function, rapid decompensation and med/psych decompensation
--- NOTE | 2021-03-13 15:56 | MHC.CLN ---
F/U FAVORABLE WEIGHT GAIN SINCE ADMISSION, +5.7%. BMI=20, WEIGHT IS 100% OF IBW. STAGE II PRESSURE INJURY TO COCCYX IS HEALED. CONTINUE CURRENT DIET AND SUPPLEMENTS. RD TO FOLLOW WEEKLY.
[2021-03-13 20:00] VITALS: BP 124/56; PULSE 83; RESP 18; TEMP 36.6; O2SAT 99
[2021-03-13] MEDS: Mirtazapine 15 MG TABLET PO (20:55)
[2021-03-13] MEDS: OLANZapine 5 MG TABLET PO (20:55)
[2021-03-14 00:35] VITALS: BP 117/57; PULSE 85; RESP 16; TEMP 37.3; O2SAT 97
[2021-03-14 04:00] VITALS: BP 122/57; PULSE 74; RESP 18; TEMP 36.6; O2SAT 97
[2021-03-14 06:00] VITALS: BP 120/60; PULSE 80; RESP 16; TEMP 36.8; O2SAT 98
[2021-03-14] MEDS: Clopidogrel Bisulfate 75 MG TABLET PO (09:23)
[2021-03-14] MEDS: Ezetimibe 10 MG TABLET PO (09:23)
[2021-03-14] MEDS: Aspirin 81 MG TAB.CHEW PO (09:23)
[2021-03-14] MEDS: Metoprolol Succinate ER 25 MG TAB.ER.24H PO (09:23)
[2021-03-14] MEDS: Famotidine 20 MG TABLET PO ×2 (09:23→20:01)
[2021-03-14] MEDS: Apixaban 5 MG TABLET PO ×2 (09:23→20:01)
[2021-03-14] MEDS: Losartan Potassium 50 MG TABLET 100 MG PO (09:23)
[2021-03-14] MEDS: lisinopriL 5 MG TABLET PO (09:23)
--- NOTE | 2021-03-14 10:44 | HO.PSYCHPN ---
Subjective Subjective Date of Service: 03/14/21 Reason For Visit: Anxiety Disorder Subjective Notes: Conditional Voluntary Interim History: The nursing staff reported the patient has been sad and dysphoric since she knows that she has to stay here and COVID-19 restrictions. On interview, the patient denies new symptoms she wants to go home as soon as possible. Mental Status Exam Mental Status Exam Patient Appearance: Well Grooomed Patient Orientation: Person Level of Consciousness: Awake Patient Behavior: Cooperative Mood Description: Depressed Affect Description: Constricted Patient Cognition Impaired: Yes Ability to Follow Directions: Good Speech Pattern: Clear Hallucinations: None Delusions: Not Present Thought Process: Linear Thought Content: positive for Circumstantial Judgement: Fair Diagnostics Vital Signs (24Hr): Vital Signs - 24 hr 03/13/21 12:00 03/13/21 20:00 03/14/21 00:35 Temperature 98.0 F 97.8 F 99.2 F Pulse Rate 98 83 85 Respiratory Rate 16 18 16 Blood Pressure 140/64 H 124/56 L 117/57 L Pulse Oximetry 98 99 97 03/14/21 04:00 03/14/21 06:00 Temperature 97.9 F 98.2 F Pulse Rate 74 80 Respiratory Rate 18 16 Blood Pressure 122/57 L 120/60 Pulse Oximetry 97 98 BMI result Body Mass Index 20.0 Labs Results: 03/04/21 12:59 03/04/21 12:59 Imaging Radiology Impressions: ITS Impressions Head CT 02/19/21 08:57 IMPRESSION: No acute findings. Mild generalized atrophy and nonspecific periventricular white matter disease. 1 cm lucent lesion in the left parietal bone. Brain MRI 02/19/21 17:28 IMPRESSION: 1. No acute intracranial abnormalities. 2. Mild to moderate underlying microangiopathy. 3. Qualitatively, there is moderate generalized cerebral volume loss. Quantitative analysis of the NeuroQuant series will be postprocessed with findings dictated as an addendum. Brain MRI 02/19/21 17:56 IMPRESSION: 1. No acute intracranial abnormalities. 2. Mild to moderate underlying microangiopathy. 3. Qualitatively, there is moderate generalized cerebral volume loss. Quantitative analysis of the NeuroQuant series will be postprocessed with findings dictated as an addendum. Venous Duplex 02/28/21 20:42 IMPRESSION: There is deep vein thrombosis involving peroneal and posterior tibial veins of the calf. However, no evidence of thrombosis within the popliteal or femoral veins. Note: We have been attempting to provide a direct [id number] communication of test results. Contact was made. The critical test result was discussed with Dr. Lynn at 9:50 PM on 02/28/2021 and it was ascertained that the content and the importance of the findings was understood at the time of the direct communication. Head CT 02/28/21 21:30 IMPRESSION: No acute intracranial pathology. Medications Medications Current Medications Acetaminophen (Acetaminophen 325 Mg Tablet) 650 mg PO Q6H PRN PRN Reason: Pain, Mild (Pain Scale 1-3) Last Admin: 02/26/21 20:37 Dose: 650 mg Documented by: Al Hydroxide/Mg Hydroxide (Magnesium Hydrox/Alum Hydrox 30 Ml Oral.Susp) 30 ml PO Q6H PRN PRN Reason: Heartburn/Nausea Apixaban (Apixaban 5 Mg Tablet) 5 mg PO BID [facility] Last Admin: 03/14/21 09:23 Dose: 5 mg Documented by: Aspirin (Aspirin 81 Mg Tab.Chew) 81 mg PO DAILY [facility] Last Admin: 03/14/21 09:23 Dose: 81 mg Documented by: Benzocaine (Throat Lozenge, Medicated Lozenge) 1 lozenge MUCOUS MEM Q2H PRN PRN Reason: Sore Throat Last Admin: 03/04/21 18:00 Dose: 1 lozenge Documented by: Clonazepam (Clonazepam 0.5 Mg Tablet) 0.25 mg PO BID [facility] Last Admin: 03/13/21 20:56 Dose: 0.25 mg Documented by: Clopidogrel Bisulfate (Clopidogrel Bisulfate 75 Mg Tablet) 75 mg PO DAILY [facility] Last Admin: 03/14/21 09:23 Dose: 75 mg Documented by: Docusate Sodium (Docusate Sodium 100 Mg Capsule) 100 mg PO DAILY PRN PRN Reason: Constipation Last Admin: 02/28/21 09:34 Dose: 100 mg Documented by: Ezetimibe (Ezetimibe 10 Mg Tablet) 10 mg PO DAILY [facility] Last Admin: 03/14/21 09:23 Dose: 10 mg Documented by: Famotidine (Famotidine 20 Mg Tablet) 20 mg PO BID [facility] Last Admin: 03/14/21 09:23 Dose: 20 mg Documented by: Ibuprofen (Ibuprofen 600 Mg Tablet) 600 mg PO Q8H PRN PRN Reason: Pain, Moderate (Pain Scale 4-6 Last Admin: 02/27/21 20:07 Dose: 600 mg Documented by: Lisinopril (Lisinopril 5 Mg Tablet) 5 mg PO DAILY [facility]; Protocol Last Admin: 03/14/21 09:23 Dose: 5 mg Documented by: Losartan Potassium (Losartan Potassium 50 Mg Tablet) 100 mg PO DAILY [facility]; Protocol Last Admin: 03/14/21 09:23 Dose: 100 mg Documented by: Magnesium Hydroxide (Milk Of Magnesia 30 Ml Oral.Susp) 30 ml PO DAILY PRN PRN Reason: Constipation Last Admin: 02/28/21 09:33 Dose: 30 ml Documented by: Melatonin (Melatonin 3 Mg Tablet) 3 mg PO BEDTIME PRN PRN Reason: insomnia Last Admin: 02/20/21 20:01 Dose: 3 mg Documented by: Metoprolol Succinate (Metoprolol Succinate Er 25 Mg Tab.Er.24h) 25 mg PO DAILY [facility]; Protocol Last Admin: 03/14/21 09:23 Dose: 25 mg Documented by: Mirtazapine (Mirtazapine 15 Mg Tablet) 15 mg PO BEDTIME [facility] Last Admin: 03/13/21 20:55 Dose: 15 mg Documented by: Multi-Ingred Cream/Lotion/Oil/Oint (Mineral Oil/Petrolatum,White 106 Gm Tube) 1 appl TOPICAL BID [facility] Last Admin: 03/13/21 21:28 Dose: Not Given Documented by: Patient Own Med ( Fish Oil 1200mg Caps ) 2 each PO DAILY [facility] Last Admin: 03/13/21 10:16 Dose: 2 each Documented by: Pt Own Med: Coq10 (100 Mg Cap) 1 each PO DAILY [facility] Last Admin: 03/13/21 10:16 Dose: 1 each Documented by: Olanzapine (Olanzapine 2.5 Mg Tablet) 2.5 mg PO Q6H PRN PRN Reason: agitation, anxiety Last Admin: 02/23/21 04:40 Dose: 2.5 mg Documented by: Olanzapine (Olanzapine 5 Mg Tablet) 5 mg PO BEDTIME [facility] Last Admin: 03/13/21 20:55 Dose: 5 mg Documented by: Pharmacy Consult (Consult Rx Perform Med Rec) 1 each MISCELLANE ONCE PRN PRN Reason: Consult order Timolol Maleate (Timolol Maleate 0.5 % Oph Cathryn 5 Ml Drbtl) 1 drop EYE-RIGHT DAILY [facility] Last Admin: 03/13/21 10:16 Dose: 1 drop Documented by: Trazodone HCl (Trazodone Hcl 50 Mg Tablet) 50 mg PO BEDTIME PRN PRN Reason: Insomnia Allergies Allergies Allergy/AdvReac Type Severity Reaction Status Date / Time melons Allergy Unknown throat Uncoded 08/13/11 00:00 sweling Assessment & Plan Assessment & Plan (1) Acute DVT (deep venous thrombosis): Status: Acute Code(s): I82.409 - Acute embolism and thrombosis of unspecified deep veins of unspecified lower extremity Assessment and Plan: 80 yo F who is currently being treated for anxiety at [facility], has now developed right lower extremity edema, found to have DVT # acute DVT - most likely 2/2 hospitalization - no evidence of respiratory abnormality or PE - will start of therapeutic Lovenox - consult hematology for anticoagulation # Reported AMS - no evidence of AMS on my exam, pt alert oriented x3 - Head CT negative - monitor mentation - continue psych meds per [facility] PLAN: pt much less psychotic, less anxious, less dysphoric. no complications with covid. no signs of respiratory distress. continue to monitor VS, including 02sat, rr q6hrs. No changes in psych meds. I spent minutes with the patient and/or on the patient floor today, greater than?50% of which was spent counseling/coordinating care. Reason for contiued inpatient stay Substantial Risk for: inability to function, rapid decompensation and med/psych decompensation
[2021-03-14 12:00] VITALS: BP 134/68; PULSE 72; RESP 14; TEMP 36.7; O2SAT 98
[2021-03-14] MEDS: Mineral Oil/Petrolatum,White 106 GM Tube 1 APPL TOPICAL (14:19)
[2021-03-14] MEDS: timoloL maleate 0.5 % Oph Sol 5 ML DRBTL 1 DROP EYE-RIGHT (14:20)
[2021-03-14 20:00] VITALS: BP 157/67; PULSE 86; RESP 18; TEMP 36.6; O2SAT 98
[2021-03-14] MEDS: clonazePAM 0.5 MG TABLET 0.25 MG PO (20:01)
[2021-03-14] MEDS: OLANZapine 5 MG TABLET PO (20:02)
[2021-03-14] MEDS: Mirtazapine 15 MG TABLET PO (20:02)
[2021-03-15 08:00] VITALS: BP 160/72; PULSE 69; RESP 16; TEMP 36.9; O2SAT 97
[2021-03-15 08:25] VITALS: BP 160/72; PULSE 89
[2021-03-15] MEDS: Losartan Potassium 50 MG TABLET 100 MG PO (08:25)
[2021-03-15] MEDS: Famotidine 20 MG TABLET PO ×2 (08:25→20:19)
[2021-03-15] MEDS: timoloL maleate 0.5 % Oph Sol 5 ML DRBTL 1 DROP EYE-RIGHT (08:25)
[2021-03-15 08:26] VITALS: BP 160/72; PULSE 89
[2021-03-15] MEDS: lisinopriL 5 MG TABLET PO (08:26)
[2021-03-15] MEDS: Ezetimibe 10 MG TABLET PO (08:26)
[2021-03-15] MEDS: Clopidogrel Bisulfate 75 MG TABLET PO (08:26)
[2021-03-15] MEDS: Metoprolol Succinate ER 25 MG TAB.ER.24H PO (08:26)
[2021-03-15] MEDS: Aspirin 81 MG TAB.CHEW PO (08:26)
[2021-03-15] MEDS: Apixaban 5 MG TABLET PO ×2 (08:26→20:19)
[2021-03-15] MEDS: Mineral Oil/Petrolatum,White 106 GM Tube 1 APPL TOPICAL (08:27)
[2021-03-15 12:00] VITALS: BP 138/68; PULSE 94; RESP 14; TEMP 36.8; O2SAT 98
[2021-03-15 20:00] VITALS: BP 147/66; PULSE 82; RESP 18; TEMP 36.6; O2SAT 98
[2021-03-15] MEDS: OLANZapine 5 MG TABLET PO (20:19)
[2021-03-15] MEDS: Mirtazapine 15 MG TABLET PO (20:19)
--- NOTE | 2021-03-15 22:16 | P.PNPSI_ITS ---
Subjective Subjective Date of Service: 03/15/21 Reason For Visit: Anxiety Disorder Subjective Notes: Conditional Voluntary Interim History: COVID positive no active symptoms Patient's case her reviewed with nursing staff chart reviewed patient withdrawn Mental Status Exam Mental Status Exam Narrative: No shortness of breath not coughing Patient Appearance: Well Grooomed Patient Orientation: Person Level of Consciousness: Awake Patient Behavior: Cooperative Mood Description: Depressed Affect Description: Constricted Patient Cognition Impaired: Yes Ability to Follow Directions: Good Speech Pattern: Clear Hallucinations: None Delusions: Not Present Thought Process: Linear Thought Content: positive for Circumstantial Judgement: Fair Diagnostics Vital Signs (24Hr): Vital Signs - 24 hr 03/15/21 08:00 03/15/21 08:25 03/15/21 08:26 Temperature 98.4 F Pulse Rate 69 89 89 Respiratory Rate 16 Blood Pressure 160/72 H 160/72 H 160/72 H Pulse Oximetry 97 03/15/21 12:00 03/15/21 20:00 Temperature 98.2 F 97.9 F Pulse Rate 94 82 Respiratory Rate 14 18 Blood Pressure 138/68 147/66 H Pulse Oximetry 98 98 BMI result Body Mass Index 20.0 Labs Results: 03/04/21 12:59 03/04/21 12:59 Imaging Radiology Impressions: ITS Impressions Head CT 02/19/21 08:57 IMPRESSION: No acute findings. Mild generalized atrophy and nonspecific periventricular white matter disease. 1 cm lucent lesion in the left parietal bone. Brain MRI 02/19/21 17:28 IMPRESSION: 1. No acute intracranial abnormalities. 2. Mild to moderate underlying microangiopathy. 3. Qualitatively, there is moderate generalized cerebral volume loss. Quantitative analysis of the NeuroQuant series will be postprocessed with findings dictated as an addendum. Brain MRI 02/19/21 17:56 IMPRESSION: 1. No acute intracranial abnormalities. 2. Mild to moderate underlying microangiopathy. 3. Qualitatively, there is moderate generalized cerebral volume loss. Quantitative analysis of the NeuroQuant series will be postprocessed with findings dictated as an addendum. Venous Duplex 02/28/21 20:42 IMPRESSION: There is deep vein thrombosis involving peroneal and posterior tibial veins of the calf. However, no evidence of thrombosis within the popliteal or femoral veins. Note: We have been attempting to provide a direct kefiliwxo-kb-qhmyljrmo communication of test results. Contact was made. The critical test result was discussed with Dr. Lynn at 9:50 PM on 02/28/2021 and it was ascertained that the content and the importance of the findings was understood at the time of the direct communication. Head CT 02/28/21 21:30 IMPRESSION: No acute intracranial pathology. Medications Medications Current Medications Acetaminophen (Acetaminophen 325 Mg Tablet) 650 mg PO Q6H PRN PRN Reason: Pain, Mild (Pain Scale 1-3) Last Admin: 02/26/21 20:37 Dose: 650 mg Documented by: Al Hydroxide/Mg Hydroxide (Magnesium Hydrox/Alum Hydrox 30 Ml Oral.Susp) 30 ml PO Q6H PRN PRN Reason: Heartburn/Nausea Apixaban (Apixaban 5 Mg Tablet) 5 mg PO BID [facility] Last Admin: 03/15/21 20:19 Dose: 5 mg Documented by: Aspirin (Aspirin 81 Mg Tab.Chew) 81 mg PO DAILY [facility] Last Admin: 03/15/21 08:26 Dose: 81 mg Documented by: Benzocaine (Throat Lozenge, Medicated Lozenge) 1 lozenge MUCOUS MEM Q2H PRN PRN Reason: Sore Throat Last Admin: 03/04/21 18:00 Dose: 1 lozenge Documented by: Clopidogrel Bisulfate (Clopidogrel Bisulfate 75 Mg Tablet) 75 mg PO DAILY [facility] Last Admin: 03/15/21 08:26 Dose: 75 mg Documented by: Docusate Sodium (Docusate Sodium 100 Mg Capsule) 100 mg PO DAILY PRN PRN Reason: Constipation Last Admin: 02/28/21 09:34 Dose: 100 mg Documented by: Ezetimibe (Ezetimibe 10 Mg Tablet) 10 mg PO DAILY [facility] Last Admin: 03/15/21 08:26 Dose: 10 mg Documented by: Famotidine (Famotidine 20 Mg Tablet) 20 mg PO BID [facility] Last Admin: 03/15/21 20:19 Dose: 20 mg Documented by: Ibuprofen (Ibuprofen 600 Mg Tablet) 600 mg PO Q8H PRN PRN Reason: Pain, Moderate (Pain Scale 4-6 Last Admin: 02/27/21 20:07 Dose: 600 mg Documented by: Lisinopril (Lisinopril 5 Mg Tablet) 5 mg PO DAILY [facility]; Protocol Last Admin: 03/15/21 08:26 Dose: 5 mg Documented by: Losartan Potassium (Losartan Potassium 50 Mg Tablet) 100 mg PO DAILY [facility]; Protocol Last Admin: 03/15/21 08:25 Dose: 100 mg Documented by: Magnesium Hydroxide (Milk Of Magnesia 30 Ml Oral.Susp) 30 ml PO DAILY PRN PRN Reason: Constipation Last Admin: 02/28/21 09:33 Dose: 30 ml Documented by: Melatonin (Melatonin 3 Mg Tablet) 3 mg PO BEDTIME PRN PRN Reason: insomnia Last Admin: 02/20/21 20:01 Dose: 3 mg Documented by: Metoprolol Succinate (Metoprolol Succinate Er 25 Mg Tab.Er.24h) 25 mg PO DAILY [facility]; Protocol Last Admin: 03/15/21 08:26 Dose: 25 mg Documented by: Mirtazapine (Mirtazapine 15 Mg Tablet) 15 mg PO BEDTIME [facility] Last Admin: 03/15/21 20:19 Dose: 15 mg Documented by: Multi-Ingred Cream/Lotion/Oil/Oint (Mineral Oil/Petrolatum,White 106 Gm Tube) 1 appl TOPICAL BID [facility] Last Admin: 03/15/21 08:27 Dose: 1 appl Documented by: Patient Own Med ( Fish Oil 1200mg Caps ) 2 each PO DAILY [facility] Last Admin: 03/15/21 08:25 Dose: 2 each Documented by: Pt Own Med: Coq10 (100 Mg Cap) 1 each PO DAILY [facility] Last Admin: 03/15/21 08:25 Dose: 1 each Documented by: Olanzapine (Olanzapine 2.5 Mg Tablet) 2.5 mg PO Q6H PRN PRN Reason: agitation, anxiety Last Admin: 02/23/21 04:40 Dose: 2.5 mg Documented by: Olanzapine (Olanzapine 5 Mg Tablet) 5 mg PO BEDTIME [facility] Last Admin: 03/15/21 20:19 Dose: 5 mg Documented by: Pharmacy Consult (Consult Rx Perform Med Rec) 1 each MISCELLANE ONCE PRN PRN Reason: Consult order Timolol Maleate (Timolol Maleate 0.5 % Oph Cathryn 5 Ml Drbtl) 1 drop EYE-RIGHT DAILY [facility] Last Admin: 03/15/21 08:25 Dose: 1 drop Documented by: Trazodone HCl (Trazodone Hcl 50 Mg Tablet) 50 mg PO BEDTIME PRN PRN Reason: Insomnia Allergies Allergies Allergy/AdvReac Type Severity Reaction Status Date / Time melons Allergy Unknown throat Uncoded 08/13/11 00:00 sweling Assessment & Plan Assessment & Plan (1) Acute DVT (deep venous thrombosis): Status: Acute Code(s): I82.409 - Acute embolism and thrombosis of unspecified deep veins of unspecified lower extremity Assessment and Plan: 80 yo F who is currently being treated for anxiety at [facility], has now developed right lower extremity edema, found to have DVT # acute DVT - most likely 2/2 hospitalization - no evidence of respiratory abnormality or PE - will start of therapeutic Lovenox - consult hematology for anticoagulation # Reported AMS - no evidence of AMS on my exam, pt alert oriented x3 - Head CT negative - monitor mentation - continue psych meds per [facility] PLAN: pt much less psychotic, less anxious, less dysphoric. no complications with covid. no signs of respiratory distress. continue to monitor VS, including 02sat, rr q6hrs. No changes in psych meds. No active covid sx I spent minutes with the patient and/or on the patient floor today, greater than?50% of which was spent counseling/coordinating care. Reason for contiued inpatient stay Substantial Risk for: rapid decompensation
[2021-03-16 08:00] VITALS: BP 123/59; PULSE 61; RESP 14; TEMP 36.2; O2SAT 95
[2021-03-16] MEDS: Apixaban 5 MG TABLET PO ×2 (08:24→20:44)
[2021-03-16 08:25] VITALS: BP 140/65; PULSE 93
[2021-03-16] MEDS: lisinopriL 5 MG TABLET PO (08:25)
[2021-03-16 08:26] VITALS: BP 140/65; PULSE 93
[2021-03-16] MEDS: Clopidogrel Bisulfate 75 MG TABLET PO (08:26)
[2021-03-16] MEDS: Metoprolol Succinate ER 25 MG TAB.ER.24H PO (08:26)
[2021-03-16] MEDS: Losartan Potassium 50 MG TABLET 100 MG PO (08:26)
[2021-03-16] MEDS: Famotidine 20 MG TABLET PO ×2 (08:27→20:45)
[2021-03-16] MEDS: Ezetimibe 10 MG TABLET PO (08:27)
[2021-03-16] MEDS: Aspirin 81 MG TAB.CHEW PO (08:27)
[2021-03-16] MEDS: timoloL maleate 0.5 % Oph Sol 5 ML DRBTL 1 DROP EYE-RIGHT (08:30)
[2021-03-16 12:00] VITALS: BP 136/64; PULSE 68; RESP 16; TEMP 36.6; O2SAT 98
[2021-03-16 16:00] VITALS: BP 181/95; PULSE 83; RESP 16; TEMP 36.7; O2SAT 97
[2021-03-16] MEDS: OLANZapine 2.5 MG TABLET PO (17:03)
--- NOTE | 2021-03-16 17:07 | PC.NURSE ---
Patient was given information from family pertaining to discharge that upset her. Patient thought she was going to daughter's house and was informed she will be going to son's house. She became extremely anxious d/t this news. BP taken - 181/95. Shanelle Sanchez notified. Olanzapine 2.5 mg given. Will continue to monitor.
[2021-03-16 20:00] VITALS: BP 156/77; PULSE 80; RESP 18; TEMP 36.8; O2SAT 97
[2021-03-16] MEDS: OLANZapine 5 MG TABLET PO (20:44)
[2021-03-16] MEDS: Mirtazapine 15 MG TABLET PO (20:44)
[2021-03-16] MEDS: Mineral Oil/Petrolatum,White 106 GM Tube 1 APPL TOPICAL (21:19)
--- NOTE | 2021-03-16 21:54 | HO.PSYCHPN ---
Subjective Subjective Date of Service: 03/15/21 Reason For Visit: Anxiety Disorder Subjective Notes: Conditional Voluntary Interim History: COVID positive no active symptoms Patient's case her reviewed with nursing staff chart reviewed patient withdrawn no acute symptoms Mental Status Exam Mental Status Exam Narrative: No shortness of breath not coughing Patient Appearance: Well Grooomed Patient Orientation: Person Level of Consciousness: Awake Patient Behavior: Cooperative Mood Description: Depressed Affect Description: Constricted Patient Cognition Impaired: Yes Ability to Follow Directions: Good Speech Pattern: Clear Hallucinations: None Delusions: Not Present Thought Process: Linear Thought Content: positive for Circumstantial Judgement: Fair Diagnostics Vital Signs (24Hr): Vital Signs - 24 hr 03/16/21 08:00 03/16/21 08:25 03/16/21 08:26 Temperature 97.2 F Pulse Rate 61 93 93 Respiratory Rate 14 Blood Pressure 123/59 L 140/65 H 140/65 H Pulse Oximetry 95 03/16/21 12:00 03/16/21 16:00 03/16/21 20:00 Temperature 97.8 F 98.1 F 98.2 F Pulse Rate 68 83 80 Respiratory Rate 16 16 18 Blood Pressure 136/64 181/95 H 156/77 H Pulse Oximetry 98 97 97 BMI result Body Mass Index 20.0 Labs Results: 03/04/21 12:59 03/04/21 12:59 Imaging Radiology Impressions: ITS Impressions Head CT 02/19/21 08:57 IMPRESSION: No acute findings. Mild generalized atrophy and nonspecific periventricular white matter disease. 1 cm lucent lesion in the left parietal bone. Brain MRI 02/19/21 17:28 IMPRESSION: 1. No acute intracranial abnormalities. 2. Mild to moderate underlying microangiopathy. 3. Qualitatively, there is moderate generalized cerebral volume loss. Quantitative analysis of the NeuroQuant series will be postprocessed with findings dictated as an addendum. Brain MRI 02/19/21 17:56 IMPRESSION: 1. No acute intracranial abnormalities. 2. Mild to moderate underlying microangiopathy. 3. Qualitatively, there is moderate generalized cerebral volume loss. Quantitative analysis of the NeuroQuant series will be postprocessed with findings dictated as an addendum. Venous Duplex 02/28/21 20:42 IMPRESSION: There is deep vein thrombosis involving peroneal and posterior tibial veins of the calf. However, no evidence of thrombosis within the popliteal or femoral veins. Note: We have been attempting to provide a direct [id number] communication of test results. Contact was made. The critical test result was discussed with Dr. Lynn at 9:50 PM on 02/28/2021 and it was ascertained that the content and the importance of the findings was understood at the time of the direct communication. Head CT 02/28/21 21:30 IMPRESSION: No acute intracranial pathology. Medications Medications Current Medications Acetaminophen (Acetaminophen 325 Mg Tablet) 650 mg PO Q6H PRN PRN Reason: Pain, Mild (Pain Scale 1-3) Last Admin: 02/26/21 20:37 Dose: 650 mg Documented by: Al Hydroxide/Mg Hydroxide (Magnesium Hydrox/Alum Hydrox 30 Ml Oral.Susp) 30 ml PO Q6H PRN PRN Reason: Heartburn/Nausea Apixaban (Apixaban 5 Mg Tablet) 5 mg PO BID [facility] Last Admin: 03/16/21 20:44 Dose: 5 mg Documented by: Aspirin (Aspirin 81 Mg Tab.Chew) 81 mg PO DAILY [facility] Last Admin: 03/16/21 08:27 Dose: 81 mg Documented by: Benzocaine (Throat Lozenge, Medicated Lozenge) 1 lozenge MUCOUS MEM Q2H PRN PRN Reason: Sore Throat Last Admin: 03/04/21 18:00 Dose: 1 lozenge Documented by: Clopidogrel Bisulfate (Clopidogrel Bisulfate 75 Mg Tablet) 75 mg PO DAILY [facility] Last Admin: 03/16/21 08:26 Dose: 75 mg Documented by: Docusate Sodium (Docusate Sodium 100 Mg Capsule) 100 mg PO DAILY PRN PRN Reason: Constipation Last Admin: 02/28/21 09:34 Dose: 100 mg Documented by: Ezetimibe (Ezetimibe 10 Mg Tablet) 10 mg PO DAILY [facility] Last Admin: 03/16/21 08:27 Dose: 10 mg Documented by: Famotidine (Famotidine 20 Mg Tablet) 20 mg PO BID [facility] Last Admin: 03/16/21 20:45 Dose: 20 mg Documented by: Ibuprofen (Ibuprofen 600 Mg Tablet) 600 mg PO Q8H PRN PRN Reason: Pain, Moderate (Pain Scale 4-6 Last Admin: 02/27/21 20:07 Dose: 600 mg Documented by: Lisinopril (Lisinopril 5 Mg Tablet) 5 mg PO DAILY [facility]; Protocol Last Admin: 03/16/21 08:25 Dose: 5 mg Documented by: Losartan Potassium (Losartan Potassium 50 Mg Tablet) 100 mg PO DAILY MICHELLE; Protocol Last Admin: 03/16/21 08:26 Dose: 100 mg Documented by: Magnesium Hydroxide (Milk Of Magnesia 30 Ml Oral.Susp) 30 ml PO DAILY PRN PRN Reason: Constipation Last Admin: 02/28/21 09:33 Dose: 30 ml Documented by: Melatonin (Melatonin 3 Mg Tablet) 3 mg PO BEDTIME PRN PRN Reason: insomnia Last Admin: 02/20/21 20:01 Dose: 3 mg Documented by: Metoprolol Succinate (Metoprolol Succinate Er 25 Mg Tab.Er.24h) 25 mg PO DAILY MICHELLE; Protocol Last Admin: 03/16/21 08:26 Dose: 25 mg Documented by: Mirtazapine (Mirtazapine 15 Mg Tablet) 15 mg PO BEDTIME [facility] Last Admin: 03/16/21 20:44 Dose: 15 mg Documented by: Multi-Ingred Cream/Lotion/Oil/Oint (Mineral Oil/Petrolatum,White 106 Gm Tube) 1 appl TOPICAL BID [facility] Last Admin: 03/16/21 21:19 Dose: 1 appl Documented by: Patient Own Med ( Fish Oil 1200mg Caps ) 2 each PO DAILY [facility]HEL[facility] Last Admin: 03/16/21 08:28 Dose: 2 each Documented by: Pt Own Med: Coq10 (100 Mg Cap) 1 each PO DAILY [facility] Last Admin: 03/16/21 08:28 Dose: 1 each Documented by: Olanzapine (Olanzapine 2.5 Mg Tablet) 2.5 mg PO Q6H PRN PRN Reason: agitation, anxiety Last Admin: 03/16/21 17:03 Dose: 2.5 mg Documented by: Olanzapine (Olanzapine 5 Mg Tablet) 5 mg PO BEDTIME [facility] Last Admin: 03/16/21 20:44 Dose: 5 mg Documented by: Pharmacy Consult (Consult Rx Perform Med Rec) 1 each MISCELLANE ONCE PRN PRN Reason: Consult order Timolol Maleate (Timolol Maleate 0.5 % Oph Cathryn 5 Ml Drbtl) 1 drop EYE-RIGHT DAILY [facility] Last Admin: 03/16/21 08:30 Dose: 1 drop Documented by: Trazodone HCl (Trazodone Hcl 50 Mg Tablet) 50 mg PO BEDTIME PRN PRN Reason: Insomnia Allergies Allergies Allergy/AdvReac Type Severity Reaction Status Date / Time melons Allergy Unknown throat Uncoded 08/13/11 00:00 sweling Assessment & Plan Assessment & Plan (1) Acute DVT (deep venous thrombosis): Status: Acute Code(s): I82.409 - Acute embolism and thrombosis of unspecified deep veins of unspecified lower extremity Assessment and Plan: 80 yo F who is currently being treated for anxiety at [facility], has now developed right lower extremity edema, found to have DVT # acute DVT - most likely 2/2 hospitalization - no evidence of respiratory abnormality or PE - will start of therapeutic Lovenox - consult hematology for anticoagulation # Reported AMS - no evidence of AMS on my exam, pt alert oriented x3 - Head CT negative - monitor mentation - continue psych meds per [facility] PLAN: pt much less psychotic, less anxious, less dysphoric. no complications with covid. no signs of respiratory distress. continue to monitor VS, including 02sat, rr q6hrs. No changes in psych meds. No active covid sx Continue plan of care 03/16/2021 I spent minutes with the patient and/or on the patient floor today, greater than?50% of which was spent counseling/coordinating care. Reason for contiued inpatient stay Substantial Risk for: rapid decompensation and med/psych decompensation
[2021-03-17 06:00] VITALS: BP 132/60; PULSE 98; RESP 16; TEMP 36.9; O2SAT 96
[2021-03-17 08:00] VITALS: BP 155/73; PULSE 91; RESP 14; TEMP 37.5; O2SAT 97
[2021-03-17] MEDS: Ezetimibe 10 MG TABLET PO (09:17)
[2021-03-17] MEDS: Famotidine 20 MG TABLET PO ×2 (09:17→20:46)
[2021-03-17] MEDS: Clopidogrel Bisulfate 75 MG TABLET PO (09:17)
[2021-03-17] MEDS: Losartan Potassium 50 MG TABLET 100 MG PO (09:17)
[2021-03-17 09:18] VITALS: BP 155/73; PULSE 91
[2021-03-17] MEDS: Aspirin 81 MG TAB.CHEW PO (09:18)
[2021-03-17] MEDS: lisinopriL 5 MG TABLET PO (09:18)
[2021-03-17] MEDS: Metoprolol Succinate ER 25 MG TAB.ER.24H PO (09:18)
[2021-03-17] MEDS: Apixaban 5 MG TABLET PO ×2 (09:18→20:46)
[2021-03-17] MEDS: timoloL maleate 0.5 % Oph Sol 5 ML DRBTL 1 DROP EYE-RIGHT (10:15)
[2021-03-17] MEDS: Mineral Oil/Petrolatum,White 106 GM Tube 1 APPL TOPICAL ×2 (10:15→20:49)
[2021-03-17 12:00] VITALS: BP 167/74; PULSE 87; RESP 18; TEMP 36.7; O2SAT 98
--- NOTE | 2021-03-17 14:50 | PM.EVENT ---
Event Note Date of Service: 03/17/21 Event Note: Patient tested COVID on March 03. Has successfully been in isolation no significant fever above 100.4 no active symptoms cough fever shortness of breath. Case reviewed with infection control should be able to be released from isolation and remain with other unit precautions and masking.
--- NOTE | 2021-03-17 16:36 | P.PNPSI_ITS ---
Subjective Subjective Date of Service: 03/17/21 Reason For Visit: Anxiety Disorder Subjective Notes: Conditional Voluntary Interim History: The nursing staff reports that the patient is pleasant and cooperative. On interview, the patient is excited to getting discharged tomorrow. No new symptoms no evidence of active COVID symptoms. Mental Status Exam Mental Status Exam Patient Appearance: Well Grooomed Patient Orientation: Person Level of Consciousness: Awake Patient Behavior: Cooperative Mood Description: Depressed Affect Description: Constricted Patient Cognition Impaired: No Ability to Follow Directions: Good Speech Pattern: Clear Hallucinations: None Delusions: Not Present Thought Process: Linear Thought Content: positive for Circumstantial Judgement: Fair Diagnostics Vital Signs (24Hr): Vital Signs - 24 hr 03/16/21 20:00 03/17/21 08:00 03/17/21 09:18 Temperature 98.2 F 99.5 F Pulse Rate 80 91 91 Respiratory Rate 18 14 Blood Pressure 156/77 H 155/73 H 155/73 H Pulse Oximetry 97 97 03/17/21 12:00 Temperature 98.1 F Pulse Rate 87 Respiratory Rate 18 Blood Pressure 167/74 H Pulse Oximetry 98 BMI result Body Mass Index 20.0 Labs Results: 03/04/21 12:59 03/04/21 12:59 Imaging Radiology Impressions: ITS Impressions Head CT 02/19/21 08:57 IMPRESSION: No acute findings. Mild generalized atrophy and nonspecific periventricular white matter disease. 1 cm lucent lesion in the left parietal bone. Brain MRI 02/19/21 17:28 IMPRESSION: 1. No acute intracranial abnormalities. 2. Mild to moderate underlying microangiopathy. 3. Qualitatively, there is moderate generalized cerebral volume loss. Quantitative analysis of the NeuroQuant series will be postprocessed with findings dictated as an addendum. Brain MRI 02/19/21 17:56 IMPRESSION: 1. No acute intracranial abnormalities. 2. Mild to moderate underlying microangiopathy. 3. Qualitatively, there is moderate generalized cerebral volume loss. Quantitative analysis of the NeuroQuant series will be postprocessed with findings dictated as an addendum. Venous Duplex 02/28/21 20:42 IMPRESSION: There is deep vein thrombosis involving peroneal and posterior tibial veins of the calf. However, no evidence of thrombosis within the popliteal or femoral veins. Note: We have been attempting to provide a direct [id number] communication of test results. Contact was made. The critical test result was discussed with Dr. Lynn at 9:50 PM on 02/28/2021 and it was ascertained that the content and the importance of the findings was understood at the time of the direct communication. Head CT 02/28/21 21:30 IMPRESSION: No acute intracranial pathology. Medications Medications Current Medications Acetaminophen (Acetaminophen 325 Mg Tablet) 650 mg PO Q6H PRN PRN Reason: Pain, Mild (Pain Scale 1-3) Last Admin: 02/26/21 20:37 Dose: 650 mg Documented by: Al Hydroxide/Mg Hydroxide (Magnesium Hydrox/Alum Hydrox 30 Ml Oral.Susp) 30 ml PO Q6H PRN PRN Reason: Heartburn/Nausea Apixaban (Apixaban 5 Mg Tablet) 5 mg PO BID [facility] Last Admin: 03/17/21 09:18 Dose: 5 mg Documented by: Aspirin (Aspirin 81 Mg Tab.Chew) 81 mg PO DAILY [facility] Last Admin: 03/17/21 09:18 Dose: 81 mg Documented by: Benzocaine (Throat Lozenge, Medicated Lozenge) 1 lozenge MUCOUS MEM Q2H PRN PRN Reason: Sore Throat Last Admin: 03/04/21 18:00 Dose: 1 lozenge Documented by: Clopidogrel Bisulfate (Clopidogrel Bisulfate 75 Mg Tablet) 75 mg PO DAILY [facility] Last Admin: 03/17/21 09:17 Dose: 75 mg Documented by: Docusate Sodium (Docusate Sodium 100 Mg Capsule) 100 mg PO DAILY PRN PRN Reason: Constipation Last Admin: 02/28/21 09:34 Dose: 100 mg Documented by: Ezetimibe (Ezetimibe 10 Mg Tablet) 10 mg PO DAILY [facility] Last Admin: 03/17/21 09:17 Dose: 10 mg Documented by: Famotidine (Famotidine 20 Mg Tablet) 20 mg PO BID [facility] Last Admin: 03/17/21 09:17 Dose: 20 mg Documented by: Ibuprofen (Ibuprofen 600 Mg Tablet) 600 mg PO Q8H PRN PRN Reason: Pain, Moderate (Pain Scale 4-6 Last Admin: 02/27/21 20:07 Dose: 600 mg Documented by: Lisinopril (Lisinopril 5 Mg Tablet) 5 mg PO DAILY [facility]; Protocol Last Admin: 03/17/21 09:18 Dose: 5 mg Documented by: Losartan Potassium (Losartan Potassium 50 Mg Tablet) 100 mg PO DAILY [facility]HEL[facility]; Protocol Last Admin: 03/17/21 09:17 Dose: 100 mg Documented by: Magnesium Hydroxide (Milk Of Magnesia 30 Ml Oral.Susp) 30 ml PO DAILY PRN PRN Reason: Constipation Last Admin: 02/28/21 09:33 Dose: 30 ml Documented by: Melatonin (Melatonin 3 Mg Tablet) 3 mg PO BEDTIME PRN PRN Reason: insomnia Last Admin: 02/20/21 20:01 Dose: 3 mg Documented by: Metoprolol Succinate (Metoprolol Succinate Er 25 Mg Tab.Er.24h) 25 mg PO DAILY [facility]HEL[facility]; Protocol Last Admin: 03/17/21 09:18 Dose: 25 mg Documented by: Mirtazapine (Mirtazapine 15 Mg Tablet) 15 mg PO BEDTIME [facility] Last Admin: 03/16/21 20:44 Dose: 15 mg Documented by: Multi-Ingred Cream/Lotion/Oil/Oint (Mineral Oil/Petrolatum,White 106 Gm Tube) 1 appl TOPICAL BID [facility] Last Admin: 03/17/21 10:15 Dose: 1 appl Documented by: Patient Own Med ( Fish Oil 1200mg Caps ) 2 each PO DAILY [facility] Last Admin: 03/17/21 10:15 Dose: 2 each Documented by: Pt Own Med: Coq10 (100 Mg Cap) 1 each PO DAILY [facility] Last Admin: 03/17/21 10:15 Dose: 1 each Documented by: Olanzapine (Olanzapine 2.5 Mg Tablet) 2.5 mg PO Q6H PRN PRN Reason: agitation, anxiety Last Admin: 03/16/21 17:03 Dose: 2.5 mg Documented by: Olanzapine (Olanzapine 5 Mg Tablet) 5 mg PO BEDTIME [facility] Last Admin: 03/16/21 20:44 Dose: 5 mg Documented by: Pharmacy Consult (Consult Rx Perform Med Rec) 1 each MISCELLANE ONCE PRN PRN Reason: Consult order Timolol Maleate (Timolol Maleate 0.5 % Oph Cathryn 5 Ml Drbtl) 1 drop EYE-RIGHT DAILY [facility] Last Admin: 03/17/21 10:15 Dose: 1 drop Documented by: Trazodone HCl (Trazodone Hcl 50 Mg Tablet) 50 mg PO BEDTIME PRN PRN Reason: Insomnia Allergies Allergies Allergy/AdvReac Type Severity Reaction Status Date / Time melons Allergy Unknown throat Uncoded 08/13/11 00:00 harshal Assessment & Plan Assessment & Plan (1) Acute DVT (deep venous thrombosis): Status: Acute Code(s): I82.409 - Acute embolism and thrombosis of unspecified deep veins of unspecified lower extremity Assessment and Plan: 80 yo F who is currently being treated for anxiety at [facility], has now developed right lower extremity edema, found to have DVT # acute DVT - most likely 2/2 hospitalization - no evidence of respiratory abnormality or PE - will start of therapeutic Lovenox - consult hematology for anticoagulation # Reported AMS - no evidence of AMS on my exam, pt alert oriented x3 - Head CT negative - monitor mentation - continue psych meds per [facility] PLAN: pt much less psychotic, less anxious, less dysphoric. no complications with covid. no signs of respiratory distress. continue to monitor VS, including 02sat, rr q6hrs. No changes in psych meds. No active covid sx Continue plan of care 03/16/2021 I spent minutes with the patient and/or on the patient floor today, greater than?50% of which was spent counseling/coordinating care. Reason for contiued inpatient stay Substantial Risk for: inability to function, rapid decompensation and med/psych decompensation
[2021-03-17 19:58] VITALS: BP 160/60; PULSE 87; RESP 18; TEMP 37.1; O2SAT 95
[2021-03-17] MEDS: Mirtazapine 15 MG TABLET PO (20:47)
[2021-03-17] MEDS: OLANZapine 5 MG TABLET PO (20:47)
[2021-03-18 06:00] VITALS: BP 132/60; PULSE 98; RESP 16; TEMP 36.9; O2SAT 97
[2021-03-18] MEDS: Metoprolol Succinate ER 25 MG TAB.ER.24H PO (08:13)
[2021-03-18] MEDS: Losartan Potassium 50 MG TABLET 100 MG PO (08:14)
[2021-03-18] MEDS: Ezetimibe 10 MG TABLET PO (08:14)
[2021-03-18] MEDS: lisinopriL 5 MG TABLET PO (08:14)
[2021-03-18] MEDS: Apixaban 5 MG TABLET PO (08:14)
[2021-03-18] MEDS: Aspirin 81 MG TAB.CHEW PO (08:14)
[2021-03-18] MEDS: Clopidogrel Bisulfate 75 MG TABLET PO (08:14)
[2021-03-18] MEDS: Mineral Oil/Petrolatum,White 106 GM Tube 1 APPL TOPICAL (08:14)
[2021-03-18] MEDS: Famotidine 20 MG TABLET PO (08:14)
[2021-03-18] MEDS: timoloL maleate 0.5 % Oph Sol 5 ML DRBTL 1 DROP EYE-RIGHT (08:15)
--- NOTE | 2021-03-18 13:50 | PM.PSYDC ---
DS: Providers Provider Date of Service: 03/18/21 Date of admission: 02/18/21 14:52 Date of discharge: 03/18/21 Primary care physician: Unknown Physician Consults: 02/28/21 21:19 Consult to Hospitalist Stat Consulting Provider: Hospitalist Reason For Exam: DVT protocol 03/01/21 13:28 Consult to Hematology / Oncology Routine Consulting Provider: Tamir Grajeda Reason for consultation: Newly diagnosed with DVT 03/04/21 12:09 Consult to Hematology / Oncology Routine Consulting Provider: Juvenal Alejandro Reason for consultation: dvt Has provider been notified: No DS: Diagnosis Discharge Diagnosis (1) Acute DVT (deep venous thrombosis): Status: Acute (2) AMS (altered mental status): Status: Acute (3) Psychosis: Status: Acute (4) Delirium due to another medical condition: Status: Acute (5) SHAHIDA (generalized anxiety disorder): Status: Acute DS: Medications Discharge Medications Home Medications: Home Medications Medication Instructions Recorded Confirmed aspirin 81 mg tablet 81 mg PO DAILY 02/11/21 02/18/21 clopidogrel 75 mg tablet 75 mg PO DAILY 02/11/21 02/18/21 ezetimibe 10 mg tablet 10 mg PO DAILY 02/11/21 02/18/21 losartan 100 mg tablet 100 mg PO DAILY 02/11/21 02/18/21 melatonin 3 mg tablet 1 tab PO BEDTIME PRN 02/11/21 02/18/21 metoprolol succinate 25 mg 25 mg PO DAILY 02/11/21 02/18/21 tablet,extended release 24 hr timolol maleate 0.5 % eye drops 1 drp OPHTHALMIC-RIGHT DAILY 02/11/21 02/18/21 Previous Rx's Medication Instructions Recorded acetaminophen 325 mg tablet 650 mg PO Q6H PRN #1 tab 02/18/21 olanzapine 2.5 mg tablet 2.5 mg PO BID #30 tab 02/18/21 olanzapine 2.5 mg tablet 2.5 mg PO Q6H PRN #30 tab 02/18/21 Mental Status Exam Mental Status Exam Patient Appearance: Well Grooomed Patient Orientation: Person, Place and Situation Level of Consciousness: Awake and Appropriate Patient Behavior: Cooperative Mood Description: Depressed Affect Description: Constricted Patient Cognition Impaired: Yes Ability to Follow Directions: Good Speech Pattern: Clear Delusions: Not Present Thought Process: Linear Thought Content: positive for Circumstantial, positive for Goal Oriented and positive for Poverty of Content Judgement: Fair Data Data Completed and Pending Completed studies during hospitalization [Text1]: 02/25/21 Unknown Urine clean catch - Urine shelby top Urine Culture - Final Imaging Diagnostic Imaging Impressions Head CT 02/19/21 08:57 IMPRESSION: No acute findings. Mild generalized atrophy and nonspecific periventricular white matter disease. 1 cm lucent lesion in the left parietal bone. Brain MRI 02/19/21 17:28 IMPRESSION: 1. No acute intracranial abnormalities. 2. Mild to moderate underlying microangiopathy. 3. Qualitatively, there is moderate generalized cerebral volume loss. Quantitative analysis of the NeuroQuant series will be postprocessed with findings dictated as an addendum. Brain MRI 02/19/21 17:56 IMPRESSION: 1. No acute intracranial abnormalities. 2. Mild to moderate underlying microangiopathy. 3. Qualitatively, there is moderate generalized cerebral volume loss. Quantitative analysis of the NeuroQuant series will be postprocessed with findings dictated as an addendum. Venous Duplex 02/28/21 20:42 IMPRESSION: There is deep vein thrombosis involving peroneal and posterior tibial veins of the calf. However, no evidence of thrombosis within the popliteal or femoral veins. Note: We have been attempting to provide a direct pdgyxxyrj-ds-njelewkzn communication of test results. Contact was made. The critical test result was discussed with Dr. Lynn at 9:50 PM on 02/28/2021 and it was ascertained that the content and the importance of the findings was understood at the time of the direct communication. Head CT 02/28/21 21:30 IMPRESSION: No acute intracranial pathology. DS: Summary Hospital Course Hospital Course: The patient was initially admitted to the hospital into the psychiatric unit since she was perseverative, delusional with altered mental status. 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 After being medically cleared, the patient was transferred into this facility for psychiatric stabilization. On Admission, the patient remained psychotic, with paranoid delusions, perseverative regarding that she made a terrible mistake and she was guilty, extremely anxious. Please see the HPI of the admission note for more details. We started her on Zyprexa to target her psychotic symptoms and also we had an antidepressant to target depression and anxiety. The patient improved slowly and she cleared up completely after 10 days of treatment. Unfortunately, the patient developed DVT and she needed to be treated. Later on, she contracted COVID-19 in the unit but she did not have any major symptoms. After quarantine, we discussed discharge options and she agreed to go back to her family. On discharge, the patient is future oriented cooperative and pleasant with no evidence of psychosis or altered mental status. Time Spent with Patient Time attestation: Total time spent providing and/or coordinating discharge services: Discharge Plan Discharge Patient Disposition: Home, Self-Care Discharge Diagnosis: Delirium induced by hyponatremia. Generalized anxiety disorder. Referrals: [facility] [Other] - 04/07/21 3:15 pm (Appointment scheduled for April 07, 2021 @ 3:15 via phone telehealth Benjie Kincaid) [facility] [Other] - 03/18/21 3:15 pm (Appointment scheduled for Wednesday,03/18/21 @ 3:[address] Diggs Office [Other] - 2 Weeks (Demographic information was faxed to office, they will call and follow up with Lina or her daughter to schedule an appointment post discharge from unit. Please call the office in two weeks if you have not heard from them.) Walker Floyd MD [Referring] - 03/26/21 2:10 pm Discharge Medications: New Eliquis 5 mg Tablet 5 mg PO BID 30 Days Qty: 60 RF: 0 losartan 50 mg Tablet 100 mg PO DAILY 30 Days Qty: 60 RF: 0 olanzapine 5 mg Tablet 5 mg PO BEDTIME 30 Days Qty: 30 RF: 0 famotidine 20 mg Tablet 20 mg PO BID 30 Days Qty: 60 RF: 0 aspirin 81 mg Tablet,Chewable 81 mg PO DAILY 30 Days Qty: 30 RF: 0 lisinopril 5 mg Tablet 5 mg PO DAILY 30 Days Qty: 30 RF: 0 mirtazapine 15 mg Tablet 15 mg PO BEDTIME 30 Days Qty: 30 RF: 0 Dermacerin Cream 1 appl topical BID Qty: 454 RF: 0 Continued melatonin 3 mg tablet 1 tab PO BEDTIME PRN (Reason: insomnia) 30 Days Qty: 30 RF: 0 clopidogrel 75 mg Tablet 75 mg PO DAILY 30 Days Qty: 30 RF: 0 metoprolol succinate 25 mg Tablet Extended Release 24 Hr 25 mg PO DAILY 30 Days Qty: 30 RF: 0 timolol maleate 0.5 % Drops 1 drp ophthalmic-Right DAILY 30 Days Qty: 10 RF: 0 ezetimibe 10 mg Tablet 10 mg PO DAILY 30 Days Qty: 30 RF: 0 Discontinued aspirin 81 mg Tablet 81 mg PO DAILY RF: 0 losartan 100 mg Tablet 100 mg PO DAILY RF: 0 acetaminophen 325 mg Tablet 650 mg PO Q6H PRN (Reason: Pain, Mild (Pain Scale 1-3)) Qty: 1 RF: 0 olanzapine 2.5 mg Tablet 2.5 mg PO BID Qty: 30 RF: 0 olanzapine 2.5 mg Tablet 2.5 mg PO Q6H PRN (Reason: agitation, anxiety) Qty: 30 RF: 0 Discharge Orders: Discharge Order (Routine); Ordered 03/18/21 Ordered By: Saúl Lee Diet: advance to usual diet Activity on Discharge: As tolerated Stand Alone Forms: Patient Portal Discharge page, Community Support Care Plan Goals: Care plan goals achieved in the unit while admitted. Health Concerns: Continue outpatient treatment by primary care physician. The patient had COVID and she is fully aware of the COVID restrictions. Plan of Treatment: Continue outpatient treatment by outpatient provider Assessment: Elderly female with a long history of several medical ailments and generalized anxiety disorder who was admitted into this facility after being medically clear for severe hyponatremia and SIADH. She was treated with Zyprexa and Remeron with for improvement of her symptoms. At this point, she is safe to go back to her family.
== END 2021-03-18 14:45 | disposition home or self-care (01) | DRG 880 ==
PROVIDERS: Internal Medicine; Internal Medicine Medical Oncology; Registered Nurse; Social Worker; Admitting Provider Psychiatry & Neurology Psychiatry; Visit Provider Psychiatry & Neurology Psychiatry
DX: F41.1 Generalized anxiety disorder (principal); U07.1 COVID-19; E22.2 Syndrome of inappropriate secretion of antidiuretic hormone; F05 Delirium due to known physiological condition; E44.0 Moderate protein-calorie malnutrition; I82.451 Acute embolism and thrombosis of right peroneal vein; I25.2 Old myocardial infarction; Z68.20 Body mass index [BMI] 20.0-20.9, adult; I10 Essential (primary) hypertension; I25.10 Atherosclerotic heart disease of native coronary artery without angina pectoris; Z79.01 Long term (current) use of anticoagulants; Z79.02 Long term (current) use of antithrombotics/antiplatelets; Z79.82 Long term (current) use of aspirin; Z79.899 Other long term (current) drug therapy
CPT/HCPCS: 36415; 70450; 70551; 76377; 80048; 80053; 80061; 80076; 81001; 81003; 81240; 82607; 82746; 83036; 83090; 83935; 84300; 85025; 85027; 85300; 85301; 85302; 85303; 85305; 85306; 85597; 85610; 85613; 85652; 85730; 86780; 87086; 87635; 93005; 93971; J1650

== ENCOUNTER 2021-03-18 15:09 | Outpatient (REF) | payer SELFPAY ==
--- NOTE | 2021-03-18 16:18 | MHC.AU.HFA ---
Hearing Instrument Fitting- Adult- Binaural Date of Visit: 03/18/21 Hearing Instruments Dispensed: Right Ear: Power Hammer Operator: Blomming Model: Massively Fun AI 1600 [facility] Serial Number: [id number] Repair Warranty: 03/22/2024 Loss and Damage Warranty: 03/22/2024 Battery Size: 312 Color: [place] Type of Wax Guard: HearClear Left Ear: Power Hammer Operator: Jena Model: Massively Fun AI 1600 [facility] Serial Number: [id number] Repair Warranty: 03/22/2024 Loss and Damage Warranty: 03/22/2024 Battery Size: 312 Color: [place] Type of Wax Guard: Hear Clear Summary of Fitting: Ms. Bedoya was seen today for hearing aid fitting. She was released today from her inpatient stay. Ms. Bedoya was visibly anxious throughout today's visit and noted that she was overwhelmed. She has previously used hearing devices that she purchased online. She saw the new aids and stated they are too big. Advised that these are the smallest they could make the Bluetooth compatible CICs, and that the rechargeable ones only come in larger sizes. She kept noting that they felt too big in her ears. Counseled extensively on the need to adjust to the hearing aids by wearing as much as possible. Did not run real-ear measures today. She noted several times that she thought these would be easier and she wouldn't have to take care of them. Advised that all hearing aids requirement maintenance. She was stating the the aids were making her ears sore because they were too big. Advised that we could try a small non-wireless, size 10 battery, CIC aid. Ordered these aids today to have when she comes in next for follow-up. Agreed to use the current hearing aids for now to see how it goes. Counseled on insertion/removal and battery changing. Did not go over Bluetooth connectivity or cleaning/wax guards. Recommendations: A hearing aid fitting will be scheduled when the non-wireless CICs arrive. She put half down today, as that is what she was told she could do at her last visit. Diagnosis Code(s): H90.3 Bilateral Sensorineural Hearing Loss Signature: Provider: Katiuska Gaona, Tamara, [facility]
== END 2021-03-18 15:10 | disposition home or self-care (01) ==
LOC: HO.HAP 15:09
PROVIDERS: Visit Provider Internal Medicine
DX: Z46.1 Encounter for fitting and adjustment of hearing aid (principal); H90.3 Sensorineural hearing loss, bilateral
CPT/HCPCS: 92591; V5256

== ENCOUNTER 2021-03-27 13:43 | Outpatient (REF) | payer SELFPAY | END 2021-03-27 13:44 | disposition home or self-care (01) | LOC: HO.HAP 13:43 | PROVIDERS: Visit Provider Internal Medicine | DX: Z13.89 Encounter for screening for other disorder (principal) ==

== ENCOUNTER 2021-04-16 16:12 | Outpatient (REF) | payer SELFPAY ==
--- NOTE | 2021-04-16 16:16 | MHC.AU.HFU ---
Hearing Instrument Follow-Up- Binaural Date of Visit: 04/16/21 Right Ear: Information Technology Specialist: Jena Model: Evolve AI 1600 [facility] Serial Number: [id number] Repair Warranty: 04/21/2024 Loss and Damage Warranty: 04/21/2024 Battery Size: 10 Color: [place] Type of Wax Guard: HearClear Dispensed By: [facility] Date of Fittin03/27/2020 Left Ear: Information Technology Specialist: Jena Model: Evolve AI 1600 [facility] NW Serial Number: [id number] Repair Warranty: 04/21/2024 Loss and Damage Warranty: 04/21/2024 Battery Size: 10 Color: [place] Type of Wax Guard: Hear Clear Dispensed By: [facility] Date of Fittin03/27/2020 Follow-Up Summary: Patient reports that she has not been doing well with the new CIC aids. She feels that the left is very difficult to insert and she isn't hearing clearly. I advised that it is likely due to her narrow ear canals that she's having difficulty with the comfort and fit of the aids. Recommend she try JULITA style hearing aids. Set her up with a pair of demos to use for a week until she comes back for her original follow-up on 04/23/21. Programmed a pair of Phonak PushToTesteo P-R-Trial aids (SN: [id number]) set to technology level 50, ran a software update on the aids, programmed to her hearing loss, and ran a feedback test. She reported that they fit more comfortably and sounded more clear. She was able to insert the aids easily. Counseled on use of the web architect. She is holding on to the CICs for now as well and I advised her to try both pairs to see which she prefers. Recommendations: Recommendations (Other): Patient still needs to be billed $1600 for second half of hearing aids Will do this once she decides on the hearing aids. Signature: Provider: Tamara Kim, [facility]
== END 2021-04-16 16:13 | disposition home or self-care (01) ==
LOC: HO.HAP 16:12
PROVIDERS: Visit Provider Nurse Practitioner Family
DX: Z13.89 Encounter for screening for other disorder (principal)

== ENCOUNTER 2021-04-23 13:56 | Outpatient (REF) | payer SELFPAY ==
--- NOTE | 2021-04-23 16:23 | MHC.AU.HAS ---
Hearing Aid Evaluation Date of Visit: 04/23/21 Historical Information: Description of Hearing: Mild to moderately-severe sensorineural hearing loss bilaterally. Current personal amplification information, if applicable: [facility], unhappy with them . Summary: Ms. Bedoya reports that she has been like the JULITA demos much better than the CICs. She would like to return the CICs for credit and order Phonak rechargeable JULITA aids. Advised that she will owe $2300 (total cost is $3900, has already paid $1600). Hearing Aid Prescription: Based on the individual?s shared listening needs, communication environments, dexterity, desire for connectivity, and personal preferences, the following prescription for amplification has been made: Right ear: Assistant Strength Coach: Phonak Model: Phonak Audeo P50-R Battery Size: Rechargeable Color: P1- Sand beige Management Advisor: Size 0 M Left ear: Assistant Strength Coach: Phonak Model: Audeo P50-R Battery Size: Rechargeable Color: P1- Sand beige Management Advisor: Size 0 M Plan of Care: Hearing Instrument Fitting to be scheduled when materials arrive. [facility]. New hearing aids ordered. Primary Diagnosis: H90.3 Bilateral Sensorineural Hearing Loss Signature: Provider: Tamara Kim, [facility]
== END 2021-04-23 13:57 | disposition home or self-care (01) ==
LOC: HO.HAP 13:56
PROVIDERS: PCP Nurse Practitioner Family; Visit Provider Nurse Practitioner Family
DX: Z13.89 Encounter for screening for other disorder (principal)

== ENCOUNTER 2021-05-23 15:41 | Outpatient (REF) | payer SELFPAY | END 2021-05-23 15:42 | disposition home or self-care (01) | LOC: HO.HAP 15:41 | PROVIDERS: Visit Provider Nurse Practitioner Family | DX: Z46.1 Encounter for fitting and adjustment of hearing aid (principal); H90.3 Sensorineural hearing loss, bilateral | CPT/HCPCS: 92591; V5257; V5299 ==

== ENCOUNTER 2021-10-23 15:27 | Outpatient (REF) | payer SELFPAY | END 2021-10-23 15:28 | disposition home or self-care (01) | LOC: HO.HAP 15:27 | PROVIDERS: Visit Provider Nurse Practitioner Family | DX: Z13.89 Encounter for screening for other disorder (principal) ==

== ENCOUNTER 2021-11-24 13:02 | Outpatient (REF) | payer SELFPAY | END 2021-11-24 13:03 | disposition home or self-care (01) | LOC: HO.HAP 13:02 | PROVIDERS: Visit Provider Nurse Practitioner Family | DX: Z46.1 Encounter for fitting and adjustment of hearing aid (principal); H90.3 Sensorineural hearing loss, bilateral | CPT/HCPCS: V5267 ==

== ENCOUNTER 2022-11-11 13:48 | Outpatient (REF) | payer SELFPAY ==
--- NOTE | 2022-11-11 14:24 | MHC.AU.HA3 ---
Hearing Instrument Follow-Up- Binaural Date of Visit: 11/11/22 Right Ear: Zenon, Model, Color, Serial Number: Nilo Saldaña P50-R SN: [id number] Color: [place] Security Controls Assessor Repair Warranty: 07/28/2024 Security Controls Assessor Loss and Damage Warranty: 07/28/2024 [facility] Service Plan: 07/28/2024 Battery Size: Rechargeable Special Class Welder/Slim Tube: 0M Earmold/Dome/CShell/SlimTip:Medium open dome Type of Wax Guard: CeruShield Dispensed By: [facility] Date of Fittin05/23/2021 Left Ear: Zenon, Model, Color, Serial Number: Nilo Ballo P50-R SN: [id number] Color: [place] Security Controls Assessor Repair Warranty: 07/28/2024 Security Controls Assessor Loss and Damage Warranty: 07/28/2024 [facility] Service Plan: 07/28/2024 Battery Size: Rechargeable Special Class Welder/Slim Tube: 0M Earmold/Dome/CShell/SlimTip: Small open dome Type of Wax Guard: CeruShield Dispensed By: [facility] Date of Fittin05/23/2021 Follow-Up Summary: Lina reported her left hearing aid was . Cleaned both hearing aids. Replaced domes and wax guards. Right hearing aid working well. Left hearing aid and would not turn on. Attempted to charge it; however, LED light was intermittent - Either would not turn on or was solid red with no improvement in battery power even after 15 minutes of charging. Sent left hearing aid to [facility] for in-warranty repair. Lina reported that she will use just her right hearing aid for now. Offered to program a loaner; however, Lina did not want to be responsible for it and can get by with just her right hearing aid. Recommendations: Patient will be contacted when materials have arrived. Diagnosis Code(s): Primary Diagnosis: H90.3 Bilateral Sensorineural Hearing Loss Signature: Provider: Shima Goddard, [facility]
== END 2022-11-11 13:49 | disposition home or self-care (01) ==
LOC: HO.HAP 13:48
PROVIDERS: Visit Provider Nurse Practitioner Family
DX: Z13.89 Encounter for screening for other disorder (principal)

== ENCOUNTER 2022-12-14 10:39 | Outpatient (REF) | payer SELFPAY | END 2022-12-14 10:40 | disposition home or self-care (01) | LOC: HO.HAP 10:39 | PROVIDERS: Visit Provider Nurse Practitioner Family | DX: Z13.89 Encounter for screening for other disorder (principal) ==

== ENCOUNTER 2022-12-16 09:32 | Outpatient (REF) | payer SELFPAY | END 2022-12-16 09:33 | disposition home or self-care (01) | LOC: HO.HAP 09:32 | PROVIDERS: Visit Provider Nurse Practitioner Family | DX: Z13.89 Encounter for screening for other disorder (principal) ==

== ENCOUNTER 2023-08-03 14:35 | Emergency (ER) | payer MEDICARE, OTHER, SELFPAY ==
--- NOTE | ~2023-08-03 | CT_ITS ---
EXAMINATION: CT CERVICAL SPINE WITHOUT CONTRAST CLINICAL INFORMATION: Neck trauma COMPARISON: None available. TECHNIQUE: Axial helical scans with sagittal coronal reformats. This CT examination was performed using dose optimization techniques as appropriate, variously including the following: *Automated exposure control *Adjustment of mA and/or kV according to patient size (this includes techniques or standardized protocols for targeted exams where dose is matched to indication/reason for exam; i.e. extremities or head) *Use of iterative reconstruction technique DLP: 284 mGy-cm FINDINGS: There is posterior degenerative spurring observed at C5-C6 but no fracture or destructive process. Alignment is preserved. Prevertebral soft tissues are normal. No significant encroachment on the spinal canal. Note is made, of atherosclerotic calcification in the common carotid bulbs. CT/CT cervical spine wo IV con IMPRESSION: No fracture or destructive process. Fleischner guidelines were followed.
--- NOTE | ~2023-08-03 | CT_ITS ---
EXAMINATION: CT HEAD WITHOUT CONTRAST CLINICAL INFORMATION: Head trauma COMPARISON: 02/28/2021 TECHNIQUE: Contiguous axial imaging was performed from the skull base to vertex without intravenous administration of contrast. This CT examination was performed using dose optimization techniques as appropriate, variously including the following: *Automated exposure control *Adjustment of mA and/or kV according to patient size (this includes techniques or standardized protocols for targeted exams where dose is matched to indication/reason for exam; i.e. extremities or head) *Use of iterative reconstruction technique DLP: 577 mGy-cm FINDINGS: Sulci and ventricles are prominent. No intra or extra-axial fluid collection, hemorrhage, mass, or mass effect. Calvarium is intact. CT/CT head/brain wo IV con IMPRESSION: No acute intracranial pathology.
[2023-08-03 14:49] VITALS: BP 148/78; BP 158/84; PULSE 70; PULSE 74; RESP 18; TEMP 36.4; O2SAT 93; O2SAT 95; BMI 23.6
--- NOTE | 2023-08-03 15:01 | ED_ITS ---
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) Fall from: standing Fall witnessed: no Place fall occurred: home Loss of consciousness: none Prolonged down time: no Symptoms prior to fall: none Context: tripped/slipped Location of injury: head Severity: mild Associated symptoms (after fall): denies Related Data Previous Rx's ?Medication ?Instructions ?Recorded apixaban 5 mg tablet (Eliquis) 5 mg PO BID 30 days #60 tabs 03/18/21 aspirin 81 mg chewable tablet 81 mg PO DAILY 30 days #30 tabs 03/18/21 clopidogrel 75 mg tablet 75 mg PO DAILY 30 days #30 tabs 03/18/21 ezetimibe 10 mg tablet 10 mg PO DAILY 30 days #30 tabs 03/18/21 famotidine 20 mg tablet 20 mg PO BID 30 days #60 tabs 03/18/21 lisinopril 5 mg tablet 5 mg PO DAILY 30 days #30 tabs 03/18/21 losartan 50 mg tablet 100 mg PO DAILY 30 days #60 tabs 03/18/21 melatonin 3 mg tablet 1 tab PO BEDTIME PRN insomnia 03/18/21 days #30 tabs metoprolol succinate 25 mg 25 mg PO DAILY 30 days #30 tabs 03/18/21 tablet,extended release 24 hr mirtazapine 15 mg tablet 15 mg PO BEDTIME 30 days #30 tabs 03/18/21 olanzapine 5 mg tablet 5 mg PO BEDTIME 30 days #30 tabs 03/18/21 timolol maleate 0.5 % eye drops 1 drp ophthalmic-Right DAILY 30 03/18/21 days #10 mL white petrolatum-mineral oil 1 appl topical BID #454 grams 03/18/21 topical cream (Dermacerin topical cream) Allergies Allergy/AdvReac Type Severity Reaction Status Date / Time Pqnteac-BBX-WoE Reductase Allergy Unknown Verified 08/03/23 14:56 Inhibitor melons Allergy Unknown throat Uncoded 08/13/11 00:00 sweling Review of Systems Review of Systems: Constitutional : No Fever, No Chills, No Fatigue ENT/Mouth : No sore throat, No Rhinorrhea Eyes: No Eye Pain, No Swelling, No Redness Cardiovascular : No Chest Pain, No SOB, No Dyspnea on Exertion Respiratory : No Cough, No Sputum Gastrointestinal : No Nausea, No Vomiting, No Diarrhea, No abdominal Pain Genitourinary : No Dysuria, No Urinary Frequency, No Hematuria, Musculoskeletal : No joint pain, No Myalgias, No Joint Swelling Skin : No Skin Lesions, No rash Neuro : No Weakness, No Numbness, No Dizziness, positive Headache Psych : No Anxiety/Panic, No Depression Heme/Lymph: No Bruising, No Bleeding,No Lymphadenopathy Endocrine : No Polyuria, No Polydipsia All other systems reviewed and are negative [facility] Past Medical History Attestation statement: The following information was validated with the patient. Source: old records reviewed Medical History Myocardial infarct, old HTN (hypertension) Surgical History H/O heart artery stent Social History Social History Household Members: Family Housing: House Do you presently have visiting nurse or other home services: No Patient Tobacco Use Status: Never used Tobacco Advance Directives: No Advance Directives Information Provided: No service: No Sexual orientation: Straight/Heterosexual Physical Exam 2 Vital Signs: Vital Signs: Last Vital Signs Temp 98.2 F 08/03/23 15:04 Pulse 86 08/03/23 15:04 Resp 16 08/03/23 15:04 BP 120/53 L 08/03/23 15:04 Pulse Ox 98 08/03/23 15:04 O2 Del Method Room Air 08/03/23 15:04 BMI result Body Mass Index 23.6 Appearance: Alert. Oriented X3. No acute distress. Eyes: Pupils equal, round and reactive to light. ENT: Pharynx normal. Contusion R parietal scalp no racoon or shah signs Neck: Normal inspection. Neck supple. CVS: Normal heart rate and rhythm. Pulses normal. Respiratory: No respiratory distress. Breath sounds normal. Abdomen: Soft and nontender. Skin: Skin warm and dry. Normal skin color. Normal skin turgor. Extremities: No lower extremity edema. No calf ttp Neuro: Oriented X 3. No motor deficit. No sensory deficit. Course Course Course Narrative: signed out to Dr. Shook pending CT reads if negative DC home Medical Decision Making Medical Decision Making MDM Narrative: 83 yo female with PMH of DVT on eliquis, anxiety, GERD, HTN, CAD here after mechanical fall she is GCS 15 at this time will obtain CT head/cspine for trauma she has no other injuries she is GCS 15 and not toxic. Differential Diagnosis Differential Diagnoses: The differential diagnosis associated with the presentation includes head injury, mechanical fall Admission/Observation Consideration of admission/observation: Escalation of care including admission/observation considered GCS 15 anticipate DC pending imaging Independent Interpretation I performed an independent interpretation of an: CT Scan Independent Historian Clinical information obtained from an independent historian. History obtained from or confirmed by: EMS External Record Review External record reviewed: Inpatient record Discharge Plan Discharge Clinical Impression: Head injury Patient Disposition: Still a Patient Instructions: Head Injury (ED) Additional Instructions: return for vomiting, confusion, severe headache or any other concerns. Prescriptions: No Action Eliquis 5 mg Tablet 5 mg PO BID 30 Days Qty: 60 0RF losartan 50 mg Tablet 100 mg PO DAILY 30 Days Qty: 60 0RF Protocol: Hold for SBP< HOLD for SBP < : 90 olanzapine 5 mg Tablet 5 mg PO BEDTIME 30 Days Qty: 30 0RF famotidine 20 mg Tablet 20 mg PO BID 30 Days Qty: 60 0RF aspirin 81 mg Tablet,Chewable 81 mg PO DAILY 30 Days Qty: 30 0RF lisinopril 5 mg Tablet 5 mg PO DAILY 30 Days Qty: 30 0RF Protocol: Hold for SBP< HOLD for SBP < : 90 mirtazapine 15 mg Tablet 15 mg PO BEDTIME 30 Days Qty: 30 0RF Dermacerin Cream 1 appl topical BID Qty: 454 0RF melatonin 3 mg tablet 1 tab PO BEDTIME PRN (Reason: insomnia) 30 Days Qty: 30 0RF clopidogrel 75 mg Tablet 75 mg PO DAILY 30 Days Qty: 30 0RF metoprolol succinate 25 mg Tablet Extended Release 24 Hr 25 mg PO DAILY 30 Days Qty: 30 0RF timolol maleate 0.5 % Drops 1 drp ophthalmic-Right DAILY 30 Days Qty: 10 0RF ezetimibe 10 mg Tablet 10 mg PO DAILY 30 Days Qty: 30 0RF Print Language: Kazakh
[2023-08-03 15:04] VITALS: BP 120/53; PULSE 86; RESP 16; TEMP 36.8; O2SAT 98
[2023-08-03 18:44] VITALS: BP 147/78; PULSE 69; RESP 16; TEMP 36.3; O2SAT 95
== END 2023-08-03 18:44 | disposition home or self-care (01) ==
PROVIDERS: Emergency Provider Emergency Medicine; PCP Nurse Practitioner Family
DX: S09.90XA Unspecified injury of head, initial encounter (principal); I10 Essential (primary) hypertension; Z86.718 Personal history of other venous thrombosis and embolism; Z79.01 Long term (current) use of anticoagulants; W18.30XA Fall on same level, unspecified, initial encounter; Y93.89 Activity, other specified; Y92.009 Unspecified place in unspecified non-institutional (private) residence as the place of occurrence of the external cause; Y99.9 Unspecified external cause status
CPT/HCPCS: 70450; 72125; 99283; 99284

== ENCOUNTER 2023-09-13 12:52 | Outpatient (REF) | payer SELFPAY | END 2023-09-13 12:53 | disposition home or self-care (01) | LOC: HO.HAP 12:52 | PROVIDERS: Visit Provider Nurse Practitioner Family | DX: Z13.89 Encounter for screening for other disorder (principal) ==

== ENCOUNTER 2023-09-14 08:26 | Outpatient (REF) | payer SELFPAY | END 2023-09-14 08:27 | disposition home or self-care (01) | LOC: HO.HAP 08:26 | PROVIDERS: Visit Provider Nurse Practitioner Family | DX: Z13.89 Encounter for screening for other disorder (principal) ==

== ENCOUNTER 2023-11-22 11:11 | Outpatient (REF) | payer SELFPAY ==
--- NOTE | 2023-11-22 15:03 | MHC.AU.HA3 ---
Hearing Instrument Follow-Up- Binaural Date of Visit: 11/22/23 Right Ear: Zenon, Model, Color, Serial Number: Nilo Ballo P50-R SN: [id number] Color: [place] Field Adjuster Repair Warranty: 07/28/2024 Field Adjuster Loss and Damage Warranty: 07/28/2024 [facility] Service Plan: 07/28/2024 Battery Size: Rechargeable Sand Caster Apprentice/Slim Tube: 0M Earmold/Dome/CShell/SlimTip:Medium open dome Type of Wax Guard: CeruShield Dispensed By: [facility] Date of Fittin05/23/2021 Left Ear: Zenon, Model, Color, Serial Number: Nilo Wayeo P50-R SN: [id number] Color: [place] Field Adjuster Repair Warranty: 07/28/2024 Field Adjuster Loss and Damage Warranty: 07/28/2024 [facility] Service Plan: 07/28/2024 Battery Size: Rechargeable Sand Caster Apprentice/Slim Tube: 0M Earmold/Dome/CShell/SlimTip: Small open dome Type of Wax Guard: CeruShield Dispensed By: [facility] Date of Fittin05/23/2021 Follow-Up Summary: Both aids dropped off left feedback ongoing issue, check right . Found left aid to have been previously dropped off with feedback complaint, appt. recommended but not followed up on. Cleaned and checked both aids. Found both wax guards clogged. Found left aid distorted. Replaced left inspector golf ball. Listening check positive both aids. Recommendations: Recommendations: Hearing instrument follow-up or maintenance as needed. Recommendations (Other): Appointment needed if true feedback is an issue. Diagnosis Code(s): Primary Diagnosis: H90.3 Bilateral Sensorineural Hearing Loss Signature: Provider: Shima Mason, [facility]
== END 2023-11-22 11:12 | disposition home or self-care (01) ==
LOC: HO.HAP 11:11
PROVIDERS: Visit Provider Nurse Practitioner Family
DX: Z13.89 Encounter for screening for other disorder (principal)

== ENCOUNTER 2023-11-23 09:17 | Outpatient (REF) | payer SELFPAY | END 2023-11-23 09:18 | disposition home or self-care (01) | LOC: HO.HAP 09:17 | PROVIDERS: Visit Provider Nurse Practitioner Family | DX: Z13.89 Encounter for screening for other disorder (principal) ==

== ENCOUNTER 2023-11-30 14:18 | Outpatient (REF) | payer SELFPAY ==
--- NOTE | 2023-11-30 15:31 | MHC.AU.HA3 ---
Hearing Instrument Follow-Up- Binaural Date of Visit: 11/30/23 Right Ear: Zenon, Model, Color, Serial Number: Nilo Saldaña P50-R SN: [id number] Color: [place] Diet Therapist Repair Warranty: 07/28/2024 Diet Therapist Loss and Damage Warranty: 07/28/2024 [facility] Service Plan: 07/28/2024 Battery Size: Rechargeable Dental Chair Assembler/Slim Tube: 0M Earmold/Dome/CShell/SlimTip:Medium open dome (no retention tail) Type of Wax Guard: CeruShield Dispensed By: [facility] Date of Fittin05/23/2021 Left Ear: Zenon, Model, Color, Serial Number: Nilo Saldaña P50-R SN: [id number] Color: [place] Diet Therapist Repair Warranty: 07/28/2024 Diet Therapist Loss and Damage Warranty: 07/28/2024 [facility] Service Plan: 07/28/2024 Battery Size: Rechargeable Dental Chair Assembler/Slim Tube: 0M Earmold/Dome/CShell/SlimTip: Small vented dome (no retention tail) Type of Wax Guard: CeruShield Dispensed By: [facility] Date of Fittin05/23/2021 Follow-Up Summary: Accompanied by sonJann. Reported feedback from left hearing aid, especially if something or someone close to ear (e.g., in car, person sitting on left side), confirmed in office. Recently had wax removed at PCP office. Otoscopy clear for left ear, noted blood on or behind TM in right ear - Recommended follow up with PCP. Cleaned both hearing aids. Replaced domes and wax guards. Listening check demonstrated hearing aids amplifying clearly. Switched to small vented dome (from open dome) on left ear, did not change acoustics in [employer]. Reran feedback analyzer. Noted improvement of feedback in office. Also advised to ensure domes are fully inserted. Inquired about updated hearing test, will request order from PCP. Recommendations: Hearing instrument follow-up or maintenance as needed. Please contact our clinic with any questions or concerns. Diagnosis Code(s): Primary Diagnosis: H90.3 Bilateral Sensorineural Hearing Loss Signature: Provider: Shima Goddard, [facility]
== END 2023-11-30 14:19 | disposition home or self-care (01) ==
LOC: HO.HAP 14:18
PROVIDERS: Visit Provider Nurse Practitioner Family
DX: Z13.89 Encounter for screening for other disorder (principal)

== ENCOUNTER 2023-12-20 13:01 | Outpatient (REF) | payer MEDICARE, OTHER, SELFPAY ==
--- NOTE | 2023-12-20 14:08 | MHC.AU.HA3 ---
Hearing Instrument Follow-Up- Binaural Date of Visit: 12/20/23 Right Ear: Zenon, Model, Color, Serial Number: Nilo Saldaña P50-R SN: [id number] Color: Treasure Wilkins Job Lithographer Repair Warranty: 07/28/2024 Job Lithographer Loss and Damage Warranty: 07/28/2024 [facility] Service Plan: 07/28/2024 Battery Size: Rechargeable Soot Blower/Slim Tube: 0M Earmold/Dome/CShell/SlimTip:Medium open dome (no retention tail) Type of Wax Guard: CeruShield Dispensed By: [facility] Date of Fittin05/23/2021 Left Ear: Zenon, , Color, Serial Number: Nilo Saldaña P50-R SN: [id number] Color: Sand Beige Job Lithographer Repair Warranty: 07/28/2024 Job Lithographer Loss and Damage Warranty: 07/28/2024 [facility] Service Plan: 07/28/2024 Battery Size: Rechargeable Soot Blower/Slim Tube: 0M Earmold/Dome/CShell/SlimTip: med open dome (no retention tail) Type of Wax Guard: CeruShield Dispensed By: [facility] Date of Fittin05/23/2021 Follow-Up Summary: Lina is here for evaluation. She reports her left hearing aid has not been working for about a month, she reports it worked briefly after being dropped off here but then stopped. Notes from 11/29 in person visit indicate swap from open to closed dome. Lina arrives today with open domes on both aids. She reports the closed dome was intolerable. Hearing evaluation reveals stable, symmetric hearing loss. Listening check positive for both aids. Otoscopy revealed non occluding cerumen As. While not occluding, the cerumen is blocking a portion of the ear canal and may be interfering with hearing aid performance. Recommendations: Recommendations: Cerumen removal recommended As. Return for hearing aid adjustment if not hearing better from hearing aid following cerumen removal. Diagnosis Code(s): Primary Diagnosis: H90.3 Bilateral Sensorineural Hearing Loss Signature: Provider: Shima Mason, [facility]
== END 2023-12-20 13:02 | disposition home or self-care (01) ==
LOC: HO.SH 13:01
PROVIDERS: Visit Provider Nurse Practitioner Family
DX: Z01.118 Encounter for examination of ears and hearing with other abnormal findings (principal); H90.3 Sensorineural hearing loss, bilateral
CPT/HCPCS: 92552; 92556; 92567

== ENCOUNTER 2024-05-23 12:56 | Outpatient (REF) | payer SELFPAY ==
--- NOTE | 2024-05-23 14:55 | MHC.AU.HA3 ---
Hearing Instrument Follow-Up- Binaural Date of Visit: 05/23/24 Right Ear: Zenon, Model, Color, Serial Number: Nilo Saldaña P50-R SN: [id number] Color: [place] Saddle Mechanic Repair Warranty: 07/28/2024 Saddle Mechanic Loss and Damage Warranty: 07/28/2024 [facility] Service Plan: 07/28/2024 Battery Size: Rechargeable Shipper/Receiver/Slim Tube: 0M Earmold/Dome/CShell/SlimTip:Medium open dome (no retention tail) Type of Wax Guard: CeruShield Dispensed By: [facility] Date of Fittin05/23/2021 Left Ear: Zenon, Model, Color, Serial Number: Nilo Saldaña P50-R SN: [id number] Color: [place]ige Saddle Mechanic Repair Warranty: 07/28/2024 Saddle Mechanic Loss and Damage Warranty: 07/28/2024 [facility] Service Plan: 07/28/2024 Battery Size: Rechargeable Shipper/Receiver/Slim Tube: 0M Earmold/Dome/CShell/SlimTip: small open dome (no retention tail) Type of Wax Guard: CeruShield Dispensed By: [facility] Date of Fittin05/23/2021 Follow-Up Summary: Aids and ekg technician dropped off both sides not sure if charging or working . Both aids appear to be functional and charging in ekg technician. Found wax build up in right. Cleaned aids, replaced domes and wax guards, vacuumed mics. Listening check positive. Included domes in bag to go up front as requested, $20 for domes, service under service plan. Recommendations: Recommendations: Hearing instrument follow-up or maintenance as needed. Diagnosis Code(s): Primary Diagnosis: H90.3 Bilateral Sensorineural Hearing Loss Signature: Provider: Shima Mason, [facility]
== END 2024-05-23 12:57 | disposition home or self-care (01) ==
LOC: HO.HAP 12:56
PROVIDERS: Visit Provider Nurse Practitioner Family
DX: Z13.89 Encounter for screening for other disorder (principal)

== ENCOUNTER 2024-05-24 10:37 | Outpatient (REF) | payer SELFPAY ==
--- OUTSIDE RECORDS SUMMARY | 2024-05-24 12:15 | XMS_ITS | Data Portability ---
Author Organization [facility], [id number] [facility] [address] [place] [address] Care Team Providers Care Pedigree Researcher Name Role Phone JOSE VIZCAINO Primary Care Provider JOSE VIZCAINO Primary Care Provider [phone] JANIA BOLDEN [facility] bradley KINZA LR [employer] Assessment Encounter Date Assessment Date Assessment LastModified by Organization Details LastModified Time 06/19/2020 06/19/2020 [facility] 05/2014: widely patent LAD stent Echo 05/2016: EF 55-60%, mild MR Nuclear stress test 05/2016: EF 69%, moderate fixed apical and mid anterior defect Echo 05/2018: EF 55%, mild aortic stenosis (BHAVIN 1.71 sq cm) with mild AR, mild MR Holter 05/2018: SR, no pauses, occl PVCs. Minimum rate was 67, max rate 128 and mean rate 88 30-day event monitor 07/2019: No pauses, profound bradycardia or arrhythmias Nuclear stress test 07/2019: moderate, fixed anteroseptal defect, EF 77%, TID 1.48 LDL 125 (05/2019) [facility] 08/03/2019: Patent LAD stent, YOUSIF to RCA [facility] 08/16/2019: YOUSIF to LCx [email or web address] Not available 06/19/2020 14:36:08 Plan of Treatment Reminders Order Date Submit Date Provider Last Modified By Organization Details Last Modified Time Details Appointments None recorded. Lab None recorded. Referral physical therapist referral - Physical Therapist evaluate and treat both sciatica and neck pain 2020 021 [email or web address] [facility], [address], [address], [place], [address], 1 08:36:49 Procedures None recorded. Surgeries None recorded. Imaging XR, foot, 3 or more view 2020 021 [email or web address] [facility], [address] , [place], [address], 11:04:57 US, amanda fall, derianor acic, complete - To be done 02/2021 @ [facility] and read by Dr. Lr 2020 021 [email or web address] [facility], [address] , [place], [address], 14:29:50 Medication Orders Zithromax 250 mg tablet 2019 020 [email or web address] [facility] #[id number], [address], [place], [place], [id number], 1 11:38:22 prednison e 10 mg tablet 2019 020 [email or web address] [facility] #[id number], [address], [place], [place], [id number], 0 14:54:54 Patient TargetsNo targets recorded. Patient Instructions Encounter Date Encounter Id Patient Instructions Last Modified By Organization Details Last Modified Time 06/24/2020 [id number] Please see the attached information about sciatic exercises and stretches. I also recommend you complete regular neck stretches to prevent exacerbation with your migraines. Please see the vitamins that you can take to help with migraine prevention. This is generally a combination of vitamins that can help. Most people take the B12, magnesium. It is always a good idea to take a vitamin D supplement. You can try the CoQ10 as well. If you decide to take the magnesium, you should evaluate for possible diarrhea. Generally, people take the magnesium at bedtime. If the magnesium at 500 mg causes you diarrhea, you should decrease it by half until your body adjusts to the supplement. I also recommend having a magnesium level drawn to ensure that it is not too high. I will place this in your chart so you can get it drawn in 4 to 6 weeks after starting the magnesium. I placed a physical therapy order for you as well. You can contact the physical therapy clinic and contact me if you need a different clinic If you have any questions or concerns, please contact me through your Patient Portal. This allows you to contact me directly. You may also leave a message by calling [phone]. [email or web address] Not available 06/27/2020 14:24:46 Reason for Referral Physical Therapist Referral for Sciatica Physical Therapist evaluate and treat both sciatica and neck pain Referring Physician: Winnie Hahn, Family Medicine, Encounter Date: 06/24/2020 Results Created Date Observation Date Name Description Value Unit Range Abnormal Flag Note LastModifiedBy Organization Detail LastModifiedTime 09/11/19 20 09/04/2019 US, duple x, venou s, lower extre mity, unila teral No observ ation record ed. [email or web address] Not Available 2019 14:10:01 09/11/19 20 09/01/2019 US, duple x, arter ial, lower extre mity No observ ation record ed. [email or web address] Not Available 2019 11:11:04 09/11/19 20 09/01/2019 US, duple x, arter ial, lower extre mity No observ ation record ed. [email or web address] Not Available 2019 11:10:08 09/27/19 20 09/27/2019 US, echoc ardio gram, trans thora cic, compl ete Proced ure: Transt horaci c Echoca rdiogr am Report Laurie silva Name: DIANA EMMANUEL X Date of Exam: 020 10:09: 27 AM Date of : [address] Medica l Record #: [id number] Age / Gender : 79 years / F Master Laurie silva ID: [id number] Height : 61.0 in (154.9 cm) Access ion #: [id number] Weight : 113.0 lb (51.3 kg) Admiss ion 53612 BSA: 1.48 mA? Admiss ion Status : BP: 0/0 mmHg HR: bpm Reques ting Provid er: JANIA BOLDEN MD Echo Techno logist : FEC Approp riate Indica tion: Valvul ar hear diseas e Additi onal Study Inform ation/ Commen ts: Study image qualit y was adequa te. SUMMAR Y: 1. Left ventri cular ejecti on fracti on, by visual estima tion, is normal : 60-65% . 2. Grade I left ventri cular diasto lic dysfun ction with normal left atrial pressu re. 3. Mild left ventri cular hypert rophy. 4. Modera tely increa sed left ventri cular septal wall thickn ess. 5. Normal right ventri cular cavity size, wall thickn ess, and systol ic functi on. 6. Normal RV systol ic functi on by TAPSE. 7. The left atrium is normal in size. 8. Normal sized right atrium . 9. Mild mitral annula r calcif icatio n. 10. Mild aortic regurg itatio n. 11. Modera te aortic stenos is. 12. Modera te aortic valve calcif icatio n. 13. Normal mitral valve. 14. Mild mitral valve regurg itatio n. 15. Mild tricus pid regurg itatio n. 16. Struct urally normal tricus pid valve. 17. There is no eviden ce of perica rdial effusi on. 18. Left atrium size is normal by a volume index of 30.3 ml/mA? . PHYSIC ROSEMARY INTERP RETATI ON: Left Ventri abhinav: The left ventri cular physician general internal medicine al cavity size is normal . LV septal wall thickn ess was modera tely increa sed. Mild left ventri cular hypert rophy. No region al wall motion abnorm alitie s. Left ventri cular ejecti on fracti on, by visual estima tion, is normal : 60-65 %. There is grade I left ventri cular diasto lic dysfun ction with normal left atrial pressu re. Right Ventri abhinav: Normal right ventri cular cavity size, wall thickn ess, and systol ic functi on. Right ventri abhinav chambe r size, indexe d to BSA, is normal . The right ventri cular systol ic functi on appear s normal . Global RV systol ic functi on is normal by TAPSE. Left Atrium : The left atrium is normal in size. Left atrium size is normal by a volume index of 30.3 ml/mA? . Right Atrium : The right atrium is normal in size. Aortic Valve: The aortic valve is abnorm al. There is modera te aortic valve calcif icatio n. The aortic valve leafle t mobili ty is modera tely restri cted. There is modera te aortic stenos is. Mild aortic valve regurg itatio n is seen. Mitral Valve: The mitral valve is normal in struct ure. Mild mitral annula r calcif icatio n. Mild mitral valve regurg itatio n is seen. Pulmon ic Valve: Normal pulmon ic valve struct ure and functi on. Tricus pid Valve: Struct urally normal tricus pid valve, with normal leafle t excurs ion. Mild tricus pid regurg itatio n is visual ized. Aorta: The aortic root and ascend ing aorta are struct urally normal , with no eviden ce of dilata tion. Venous : The inferi or vena cava is normal in size and collap ses greate r than 50% with inspir ation. Inferi or vena cava flow is normal . The inferi or vena cava is of normal calibe r. Perica rdium: There is no eviden ce of perica rdial effusi on. Compar mica to Prior Study: There is a compar mica study availa ble. Left Ventri abhinav: LVIDd (2D): 3.80 cm (3.8-5 .2) LVIDs (2D): 2.60 cm (2.2-3 .5) IVSd (2D): 1.37 cm (0.6-0 .9) LVPWd (2D): 0.88 cm (0.6-0 .9) LV FS (2D): 31.6 % LV DIASTO LIC FUNCTI ON: Tissue Dopple r (later al): Latera l MV E': 0.08 m/s Tissue Dopple r (septa l): Septal MV E': 0.07 m/s LA Vol s, MOD BP: 44.9 ml LA Vol s, MOD BP i: 30.3 ml/m2 LA Vol s, A4Cs 17.7 ml/mA? (22-52 ) LA Vol s, A2C 44.0 ml/mA? LA Vol s, Biplan e 30.3 ml/mA? (16-34 ) Aorta: LVOT diamet er: 1.90 cm Aortic Root (2D): 3.00 cm (2.0-3 .7) Aortic Root indexe d: 2.02 cm/mA? Right Ventri abhinav: RVd (2D): 3.42 cm TAPSE: 2.22 cm (>1.7) Left Ventri cular Outflo w Tract: LVOT Vmax: 0.99 m/s LVOT VTI: 0.261 m LVOT Diamet er: 1.90 cm LVOT SV: 74.0 ml LVOT SI: 49.9 ml/mA? Aortic Valve: AoV Vmax: 2.46 m/s AoV Peak P.2 mmHg AoV Mean P.0 mmHg AoV VTI: 0.598 m Indexe d: AoV Area, by VTI: 1.24 cm2 0.83 cm2/m2 AoV Area, by Vmax: 1.14 cm2 AoV Area, by Vmn: 1.18 cm2 AoV Veloci ty ratio: 0.44 Tricus pid Valve and RV/PA Systol ic Pressu re: TR Vmax: 2.08 m/s TAPSE: 2.22 cm Electr onical ly signed by Theo jones MD on 020 at 11:02: 50 AM Final [address] [place], [address], 09/27/2019 11:22:09 12/25/19 21 12/24/2020 XR, foot, 3 or more view Exam: XR Foot 3+ Views left Patien t Name: DIANA BRUNNER ID: [id number] VIEWS LEFT FOOT 2020 HISTOR Y: Pain No prior study. IMPRES ALEX: There is modera te bony bunion and hallux valgus deform ity with corres pondin g joint space narrow ing at the first metata rsopha langea l joint. There is old fractu re deform ity fifth metata rsal. No acute fractu re or disloc ation. No signif icant heel spur. No radiop aque foreig n body in the heel pad. Comple tiffanie Date: 2020 10:39: 01 AM Transc ribed Date: 2020 10:40: 42 AM Referr ing Provid er: Jose Vizcaino MD Report Electr onical ly Signed By: Anne Gurrola MD Report Signed On: 2020 10:41: [address] [facility] [address], [place], [address], 12/24/2020 10:48:10 Result Notes None recorded. 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 9 07:35:21 Lumbar radiculo laurence 310722141 Active 2011 LUMBAR RADICULO LAURENCE; Origina l code:M54 .16 Ente red By: Theo Delgado MD; Signed By: Theo Delgado MD Not Available [facility] 9 07:35:21 Aortic valve stenosis 30165445 Active 2012 AORTIC STENOSIS ; Origina l code:I35 .0 Enter ed By: Shauna Nuñez LPN; Signed By: Shauna Nuñez LPN Not Available [facility] 9 07:35:22 Syncope 061632494 Completed 201805/18/2019 SYNCOPE; Origina l code:R55 Entered By: Natalie Bolaños MA; Signed By: MD Aki Parham, [facility] 0 07:40:30 Vertigo 260566116 Completed 201805/18/2019 VERTIGO; Origina l code:R42 Entered By: Natalie Bolaños MA; Signed By: MD Aki Parham, [facility] 0 07:40:32 Magnetic resonanc e imaging of brain abnormal 073275778 Active 2018 ABNORMAL BRAIN MRI; Origina l code:R90 .89 Ente red By: Natalie Bolaños MA; Signed By: Juvenal Tineo MD Not Available [facility] 9 07:35:[address] segment elevatio n myocardi al infarcti on 122044565 Completed 201108/22/2019 MYOCARDI AL INFARCTI ON( 06/07/11) ; Origina l code:I21 .3 Enter ed By: Shauna Nuñez LPN; Signed By: YOBANY Brown, MARCOS [address] , [place], [address] , [facility] 0 12:48:47 Hypercho lesterol emia 31350370 Active 2019 Aki mccormack, [facility] 0 07:40:42 Headache 72432011 Completed 201906/06/2019 Aki mccormack, [facility] 0 11:21:08 Coronary arterios clerosis 69274228 Active 2019 Aki mccormack, [facility] 0 09:45:19 Abdomina l pain 08459268 Completed 201906/06/2019 Aki mccormack, [facility] 0 09:48:10 Angina pectoris 756481065 Completed 201906/06/2019 Aki mccormack, [facility] 0 09:48:05 Dizzines s 332307967 Completed 201901/29/2020 Aki mccormack, [facility] 0 10:20:44 Peripher al vascular disease 880599169 Active 2019 Aki mccormack, [facility] 0 11:20:58 Headache 69411054 Active 2019 Aki mccormack, [facility] 0 11:21:08 Allergic rhinitis 67393816 Completed 201901/29/2020 Aki mccormack, [facility] 0 10:20:41 Pain of left heel 21870648007 93400 Active 2020 Val Porter [facility], [facility] 1 10:21:11 Problem Notes None recorded. Procedures Surgical History Date Name Laterality Status Provider Name and Address Organization Details Recorded Time Cardiac - Coronary Artery Stent completed Helder Arias [facility] 05/18/2019 09:22:02 Cholecystectomy (Gallbladder) completed Helder [facility] 05/18/2019 09:22:15 Unlisted px ant segment eye completed Helder Juana [facility] 05/18/2019 09:22:25 Imaging Results Imaging Date Name Status LastModified by Organiz atformerly [facility] Details LastModified Time 09/04/2019 US, duplex, venous, lower extremity, unilateral completed [email or web address] Information not available 09/11/2019 14:10:01 09/01/2019 US, duplex, arterial, lower extremity completed Information not available 09/12/2019 11:11:04 09/01/2019 US, duplex, arterial, lower extremity completed Information not available 09/12/2019 11:10:08 09/27/2019 US, echocardiogram, transthoracic, complete completed [facility] [address], [place], [address], 09/27/2019 11:22:09 12/24/2020 XR, foot, 3 or more view completed [address] [facility] [address], [place], [address], 12/24/2020 10:48:10 Procedure Notes None recorded. Medical Equipment None Reported. Allergies Allergen ID Allergen Name Allergen Category Reaction Reaction Severity Criticality Documentation Date Start Date Code Code System Note Provider Name and Address Organization Details Recorded Time 3625349 melon extract food anaphylax is severe Not available 05/18/2019 62152 10 RxNorm Not Available Not Available Not Available Medications Name Sig Start Date Stop Date Status Note LastModified by Organization Details LastModified Time multivitam in tablet 1 tab daily active Enter By: Shauna laureano LPN; Signed By: Shauna laureano LPN Not Available Not Available Not Available latanopros t 0.005 % eye drops INSTILL 1 DROP INTO BOTH EYES EVERY NIGHT AT BEDTIME DIRECTED active Not Available Not Available No t Available prednisone 10 mg tablet Day 1: 4 tabs, Day 2: 3 tabs, Day 3: 2 tabs, Day 4: 1 tab. Then stop. 10/17 completed Not Available Not Available Not Available azithromyc in 250 mg tablet TAKE 2 TABLETS (500 MG) BY ORAL ROUTE ONCE DAILY FOR 1 DAY THEN 1 TABLET (250 MG) BY ORAL ROUTE ONCE DAILY FOR 4 DAYS 06/19 completed Not Available Not Available Not Available prednisone 20 mg tablet 09/26 completed Not Available Not Available Not Available topiramate 25 mg tablet TAKE 1 TABLET BY MOUTH DAILY AT BEDTIME 06/24 completed Not Available Not Available Not Available clopidogre l 75 mg tablet TAKE 1 TABLET BY MOUTH EVERY DAY active Not Available Not Available No t Available tramadol 50 mg tablet 1 tab daily as needed 05/17 completed Not Available Not Available Not Available butalbital -acetamino phen-caffe ine 50 mg-325 mg-40 mg tablet TAKE 1 TABLET BY MOUTH EVERY 8 HOURS NEEDED FOR HEADACHE 06/19 completed Not Available Not Available Not Available propranolo l 10 mg tablet TAKE 1 TABLET BY MOUTH TWICE DAILY 06/24 completed Not Available Not Available Not Available divalproex 125 mg tablet,del ayed release TAKE 1 TABLET BY MOUTH AT BEDTIME 06/24 completed Not Available Not Available Not Available Banophen 25 mg capsule TK 1 C PO Q 6 H PRF ITCHING 06/19 completed Not Available Not Available Not Available hydrochlor othiazide 25 mg tablet TAKE 1 TABLET BY MOUTH DAILY 2020 active allison 06/19/20; f/u appt 03/27/21 Not Available Not Available Not Available mirtazapin e 15 mg tablet TAKE 1 TABLET BY MOUTH DAILY AT BEDTIME REPLACES TOPAMAX 06/24 completed Not Available Not Available Not Available metoprolol succinate ER 25 mg tablet,ext ended release 24 hr TAKE 1 TABLET BY MOUTH EVERY DAY 2020 active allison 06/19/20; f/u appt 03/27/21 Not Available Not Available Not Available methylpred nisolone 4 mg tablets in a dose pack FPD 06/19 completed Not Available Not Available Not Available losartan 100 mg tablet TAKE 1 TABLET BY MOUTH DAILY 2020 active allison 06/19/20; f/u appt 03/27/21 Not Available Not Available Not Available doxycyclin e hyclate 100 mg tablet 05/17 completed Not Available Not Available Not Available amoxicilli n 875 mg-potassi um clavulanat e 125 mg tablet 09/26 completed Not Available Not Available Not Available Adult Low Dose Aspirin 81 mg tablet,del ayed release 1 tab daily. 2011 active Enter By: Shauna laureano LPN; Signed By: Shauna laureano LPN Not Available Not Available Not Available ezetimibe 10 mg tablet TAKE 1 TABLET BY MOUTH DAILY 12/24 completed Not Available Not Available Not Available Multivitam ins 06/19 completed uknown dosage, take one cap. daily Not Available Not Available Not Available Vitamin D3 active uknown dosage, take one cap. daily Not Available Not Available Not Available omega 3 500 mg-dha-epa -B12 500 mcg-FA 1 mg-B6 12.5 mg-phytost vin cap Take 1 capsule every day by oral route. active Not Available Not Available No t Available [facility] 10 billion cell-200 mg sprinkle capsule TK 1 C PO BID 09/26 completed Not Available Not Available Not Available Brilinta 90 mg tablet Take 1 tablet twice a day by oral route. 10/17 completed Not Available Not Available Not Available Fluzone High-Dose 2019-20 (PF) 180 mcg/0.5 mL intramuscu lar syringe ADM 0.5ML IM UTD 07/26 completed Not Available Not Available Not Available Vitals Date Recorded Body height Body mass index (BMI) Body weight Heart rate Respiratory rate Oxygen saturation Oxygen saturation in Arterial blood by Pulse oximetry Provider Name and Address Organization Details Last Updated DateTime 0 154.94 cm 21.8 kg/m2 82846.2 2 g 82 /min 16 /min 91 % 91 % [facility] 0 10:54:07 Date Recorded Systolic blood pressure Diastolic blood pressure Provider Name and Address Organization Details Last Updated DateTime 10/09/2019 138 mm[Hg] 70 mm[Hg] Radha Alfredo [facility] 10/09/2019 12:20:35 Date Recorded Body height Body mass index (BMI) Body weight Heart rate Respiratory rate Oxygen saturation Oxygen saturation in Arterial blood by Pulse oximetry Body temperature Systolic blood pressure Diastolic blood pressure Provider Name and Address Organization Details Last Updated DateTime 0 154.94 cm 22.2 kg/m2 34814.1 1 g 80 /min 14 /min 98 % 98 % 98.1 [degF] 141 mm[Hg] 72 mm[Hg] [facility] 0 14:53:32 Date Recorded Body height Respiratory rate Body mass index (BMI) Body weight Oxygen saturation Oxygen saturation in Arterial blood by Pulse oximetry Heart rate Systolic blood pressure Diastolic blood pressure Provider Name and Address Organization Details Last Updated DateTime 1 154.94 cm 16 /min 21 kg/m2 14290.1 5 g 98 % 98 % 68 /min 153 mm[Hg] 73 mm[Hg] Nahomi Shipley [facility] 1 11:41:56 Date Recorded Body height Body temperature Respiratory rate Oxygen saturation Oxygen saturation in Arterial blood by Pulse oximetry Heart rate Pain severity - 0-10 verbal numeric rating [Score] - Reported Systolic blood pressure Diastolic blood pressure Provider Name and Address Organization Details Last Updated DateTime 1 154.94 cm 97.1 [degF] 18 /min 97 % 97 % 87 /min 9 153 mm[Hg] 83 mm[Hg] Beatriz Aleman [facility] 1 13:08:52 Date Recorded Body height Body mass index (BMI) Body weight Heart rate Respiratory rate Oxygen saturation Oxygen saturation in Arterial blood by Pulse oximetry Body temperature Systolic blood pressure Diastolic blood pressure Provider Name and Address Organization Details Last Updated DateTime 1 154.94 cm 20.2 kg/m2 59103.3 8 g 80 /min 16 /min 97 % 97 % 98 [degF] 138 mm[Hg] 60 mm[Hg] Hilary King [facility] 1 10:16:27 Social History Question Answer Notes LastModified by Organizat ion Details LastModified Time Tobacco Smoking Status Former Smoker quit 1963 Magui mccormack [facility] 10/09/2019 10:56:19 What Is Your Level Of Caffeine Consumption? Moderate Information not available 05/18/2019 How Much Tobacco Do You Chew? None [facility] – Information not available 05/18/2019 Do You Or Have You Ever Used E-cigarettes Or Vape? 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 7 Walking [email or web address] Information not available 07/31/2019 How Often Do You Have A DRINK Containing ALCOHOL? Never Information not available 05/18/2019 How Often Do You Have Six Or More DRINKS On One Occasion? Never [email or web address] Information not available 07/31/2019 Marital Status Informatio n not available 05/18/2019 Do You Or Have You Ever Used Smokeless Tobacco? Never Used Smokeless Tobacco Information not available 05/18/2019 How Much Tobacco Do You Smoke? No [facility] – Information not available 05/18/2019 Sex: Unknown Functional Status None recorded. Mental Status None recorded. Family History Relationship Description Onset Age of this Age Resolved Age Notes LastModified by Organization Details LastModified Time Father Myocardial infarction [email or web address] Not available 05/17 09:20:31 Father Heart disease Not available 2019 09:21:27 Mother Myocardial infarction Not available 05/17 09:20:31 Mother Heart disease Not available 2019 09:21:27 Brother Family history of malignant neoplasm Not available 2019 09:20:53 Brother Heart disease Not available 2019 09:21:27 Sister Family history of malignant neoplasm Not available 2019 09:20:53 Sister Heart disease Not available 2019 09:21:27 Medical History Condition Response Coronary Artery Disease N HIV or AIDS N Other Y Depression N Reflux/GERD (heartburn) N Emphysema or COPD N Hypercholesteromia Y Anxiety Disorder N Arthritis N Renal / Kidney Disease N Cancer N Hospitalization(s) N Cerebrovascular Accident (Stroke) N Fibromyalgia N Rheumatic Fever N Diabetes Mellitus N Bleeding Disorder N Hypertension (high blood pressure) Y Blood Clots/DVT/Pulmonary Embolism N Asthma N Thyroid Disease N Allergies (environmental/food) N Seizures / Epilepsy N Abnormal Cardiac Stress Test N Hepatic / Liver Disease N Abnormal EKG N Anemia N Heart Attack ([place]) N Stomach Ulcers N Hypercholesterolemia (high cholesterol) Y Heart Murmur N Congestive Heart Failure (CHF) N No significant past medical history N Valvular Heart Disease N Osteoporosis N Gynecological HistoryNo gynecological history recorded. Obstetrics History GPAL:G 0 P 0 0 0 0 Immunizations Vaccine Type Date Status Note Provider Nam e and Address Organization Details Recorded Time Influenza, adjuvanted, trivalent, PF 12/28/2016 completed Helder mccormack, [facility] 05/18/2019 09:19:29 Influenza, split virus, trivalent, PF 12/23/2011 completed Helder mccormack, [facility] 05/18/2019 09:19:29 Past Encounters Encounter ID Performer Location Encounter Start Date Encounter Closed Date Diagnosis/Indication Diagnosis SNOMED-CT Code Diagnosis ICD10 Code Diagnosis Note [id number] MD TIBURCIO Oliver_LAZARO_ [facility] [address],[place] [address] 05/18/2019 09:00:52 05/18/2019 13:00:38 Hypertensive disorder 19340273 I10 Aortic valve stenosis 60 489512 I35.0 Coronary arteriosclerosis 51070492 I25.10 Abdominal pain 43368999 R10.9 Headache 18963198 R51 Screening for osteoporosis 400077315 Z13.820 Screening for malignant neoplasm of breast 871310861 Z12.39 Screening for malignant neoplasm of colon 029327888 Z12.11 Hypercholesterolemia 136 95458 E78.00 Urine screening due 1712 99099 N39.9 Screening for malignant neoplasm of rectum 823135635 Z12.12 [id number] Karon Alegria, MARCOS CFL_HFMG_ [facility] [address] [place] [address] 05/18/2019 14:43:55 05/18/2019 21:29:37 Angina pectoris 972327983 I20.9 Coronary arteriosclerosis 18574834 I25.10 Hypertensive disorder 38 [address] percutaneous transluminal coronary angioplasty 353018237 Z98.61 Aortic valve stenosis 60 699967 I35.0 [id number] MD TIBURCIO Oliver_HFMG_ [facility] [address] [place] [address],[place] [address] 07/27/2019 10:33:48 07/27/2019 11:21:49 Hypercholesterolemia 22614872 E78.00 Hypertensive disorder 38 577758 I10 Urine screening due 1712 59108 N39.9 Dizziness 024426251 R42 MRI finding noted, significan t stenosis in the COAL DIGGER, will refer to neurology Peripheral vascular disease 716740288 I73.9 Headache 46103685 R51 Aortic valve stenosis 60 200302 I35[address] surgery for possible TAVR [id number] Kinza Lr MD CF_HFMG_ [facility] Cardiolog y [address] [place] [address] 07/31/2019 10:54:57 07/31/2019 12:29:40 Coronary arteriosclerosis 17387131 I25.10 Aortic valve stenosis 60 173806 I35.0 [id number] Karonjuan manuel Alegria NP CFL_HFMG_ [facility] Cardiolog y [address] [place] [address] 08/22/2019 10:47:20 08/22/2019 20:55:36 Coronary arteriosclerosis 76425767 I25.10 Previous LAD stent patent Status post YOUSIF to RCA and LCx during staged procedure as above No angina Continue DAPT with ASA and Brilinta Patient intolerant to statins, takes fish oil Aortic valve stenosis 60 341478 I35.0 Mild aortic stenosis as above on echo Continue to monitor No SBE prophylaxi s needed Patient po st percutaneous transluminal coronary angioplasty 050845587 Z98.61 Status post YOUSIF to RCA and LCx Previous LAD stent patent Continue DAPT with ASA and Brilinta for 12 months uninterrup tiffanie Hyperlipidemia 66483139 E78.5 LDL 125, above goal She is intolerant to statins, takes fish oil 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 Lr [id number] Jose Vizcaino MD CFRedd_HFMG_ [place] [address] [facility] [address] [facility],[address] [place] [address] 08/28/2019 10:19:51 08/28/2019 16:16:12 Coronary arteriosclerosis 68131984 I25.10 Hypertensive disorder 38 777225 I10 Headache 28622246 R51 Aortic valve stenosis 60 921489 I35[address] surgery for possible TAVR w/ Dr. Bolden. [id number] MD TIBURCIO Dasilva_HFMG_ [place] [facility] [address] [place] [address] 09/25/2019 13:07:37 09/25/2019 16:35:33 Peripheral vascular disease 383617382 I73.9 [id number] MD TIBURCIO Rodriguez_HFMG_ [facility] [address] [facility],[address] [place] [address] 09/27/2019 09:46:38 09/27/2019 10:50:09 Aortic valve stenosis 29185345 I35.0 Echo done today reviewed. Her aortic valve is thickened and calcified. Aortic stenosis is not severe. Vmax is 250, MG 14, AV VR 0.4. Recommend follow up with repeat echocardio gram in 6 months with her cardiologi st. We would be happy to see her then as well. The patient follows up with Dr. Lr the patient is enrolled in the valve clinic. Patient expressed understand ing and her readiness to continue to follow-up with Dr. Lr. Referring back to Dr. Vizcaino. [id number] MD TIBURCIO Oliver_HFMG_ [address] [address] 10/09/2019 10:03:15 10/09/2019 15:13:33 Allergic rhinitis 97918811 J01.90 [id number] MD TIBURCIO Oliver_HFMG_ [address] [address] 10/18/2019 14:35:10 10/18/2019 16:54:51 Hypertensive disorder 34491743 I10 Allergic rhinitis 933294 04 J01.90 Headache 00895661 R51 [id number] Karon Alegria NP CFL_HFMG_ [facility] Cardiolog y [address] [place] [address] 06/19/2020 11:25:55 06/19/2020 15:35:53 Coronary arteriosclerosis 34358321 I25.10 Previous LAD stent patent Status post YOUSIF to RCA and LCx during staged procedure as above Patient asymptomat ic and feels great Continue DAPT with ASA and Plavix Patient intolerant to statins, takes fish oil and Zetia Aortic valve stenosis 60 507228 I35.0 Mild aortic stenosis as above on echo Continue to monitor with serial echoes Echo in 9 months prior to next visit No SBE prophylaxi s needed Patient po st percutaneous transluminal coronary angioplasty 888735870 Z98.61 Status post YOUSIF to RCA and LCx Previous LAD stent patent Continue DAPT with ASA and and Plavix until August then ASA only after August Hyperlipidemia 13479049 E78.5 LDL 139 (07/2019) above goal She is intolerant to statins, takes fish oil and Zetia 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 [address] 06/24/2020 12:58:21 06/24/2020 16:16:56 Sciatica 40589163 M54.30 Headache 94537170 R51.9 I also recommend you complete regular neck stretches to prevent exacerbati on with your migraines. Please see the vitamins that you can take to help with migraine prevention . This is generally a combinatio n of vitamins that can help. Most people take the B12, magnesium. It is always a good idea to take a vitamin D supplement . You can try the CoQ10 as well. If you decide to take the magnesium, you should evaluate for possible diarrhea. Generally, people take the magnesium at bedtime. If the magnesium at 500 mg causes you diarrhea, you should decrease it by half until your body adjusts to the supplement . I also recommend having a magnesium level drawn to ensure that it is not too high. I will place this in your chart so you can get it drawn in 4 to 6 weeks after starting the magnesium. Peripheral vascular disease 534519044 I73.9 PVD stable with ASA/Plavix and exercise [id number] MD TIBURCIO Oliver_HFMG_ [address] [place] [address] 12/24/2020 10:08:02 12/24/2020 19:52:32 Pain of left heel 5702621716 796160 M79.672 Conservati ve treatment Hypertensive disorder 38 620230 I10 Continue current medication s blood pressure is well controlled reduce salt intake Coronary arteriosclerosis 98126172 I25.10 Continue Plavix Health Concerns Section Related Observation LastModified by Organization Detai ls LastModified Time None Recorded Concern Status LastModified by Organization Details LastModified Time None Recorded Advance Directives Directive None Recorded Payers Encounter Date Sequence Insurance Name Policy Number Policy Love Covered Member ID Love Member ID Guarantor Name 10/09/2019 1 [employer] (MEDICARE) Lina Timmy Cadieux [id number] Lina July Cadieux 10/09/2019 2 [employer]PS - FOR LIFE (MEDICARE SUPPLEMENT) Lina Sonia Cadieux [id number] Lina July Cadieux 10/18/2019 1 [employer] (MEDICARE) Lina Timmy Cadieux [id number] Lina July Cadieux 10/18/2019 2 [employer]PS - FOR LIFE (MEDICARE SUPPLEMENT) Lina Sonia Cadieux [id number] Lina July Cadieux 06/19/2020 1 [employer] (MEDICARE) Lina Timmy Cadieux [id number] Lina July Cadieux 06/19/2020 2 [employer] - FOR LIFE (MEDICARE SUPPLEMENT) Lina Sonia Cadieux [id number] Lina July Cadieux 06/24/2020 1 [employer] (MEDICARE) Lina Timmy Cadieux [id number] Lina July Cadieux 06/24/2020 2 [employer] - FOR LIFE (MEDICARE SUPPLEMENT) Lina May Cadieux [id number] Lina July Cadieux 12/24/2020 1 [employer] (MEDICARE) Lina Warner Cadieux [id number] Lina July Cadieux 12/24/2020 2 [employer] - FOR LIFE (MEDICARE SUPPLEMENT) Lina Bedoya [id number] Lina Bedoya Notes Date Note Type Note Provider Name and Address Organization Details Recorded Time 0 text/html F/U Coronary Artery DiseaseReported bypatient.Severity/Progres alex:no/stable symptoms; no chest discomfort with daily activities; has not needed to use Nitroglycerin Context:taking medications as prescribed; no recent change in medication; no significant medication side effects; non-smoker Associated Symptoms:no chest pain at rest; no chest pain with exertion; no neck pain; no left arm pain; no dyspnea with exertion; no sweating; no nausea This is a 79-year-old white female here for a complaint of postnasal drainage congestion headaches she denies any fevers. She also reports very minimal socializing contact she has been staying quite sequestered. Sometime back she had been complaining of dizzinessheadachesshe had an MRI donein [facility] showed a kink and stenosis in the COAL DIGGER. She has a history of coronary artery disease and recently had PTCI placement x2. She has significant aortic stenosis cephalgia hypertension dyslipidemia. MD Elvia [address] , [place], [address], [facility] 10/09/2019 13:01:32 0 text/html F/U Coronary Artery DiseaseReported bypatient.Severity/Progres alex:no/stable symptoms; no chest discomfort with daily activities; has not needed to use Nitroglycerin Context:taking medications as prescribed; no recent change in medication; no significant medication side effects; non-smoker Associated Symptoms:no chest pain at rest; no chest pain with exertion; no neck pain; no left arm pain; no dyspnea with exertion; no sweating; no nausea This is a 79-year-old white female here for a follow-up of a complaint of postnasal drainage congestion headaches She says she feels better . She also reports very minimal socializing contact she has been staying quite sequestered. Sometime back she had been complaining of dizzinessheadachesshe had an MRI donein [facility] showed a kink and stenosis in the COAL DIGGER. She has a history of coronary artery disease and recently had PTCI placement x2. She has significant aortic stenosis cephalgia hypertension dyslipidemia. MD Elvia [address], [place], [address], [facility] 10/18/2019 16:49:46 1 text/html 79-year-old female who was seen in clinic for routine follow-up. She has a history of OH with CAD with staged PTCA with YOUSIF to RCA on 08/03/2019 and YOUSIF to LCx on 08/16/2019. She has a previous PTCA to her LAD that is patent. She has normal LV systolic function. She is currently on DAPT with ASA and Plavix for 12 months. She is intolerant to statin and takes Zetia and fish oil. Today in clinic she feels well and has no cardiac symptoms. No chest pain, shortness of breath, RUELAS, PND orthopnea. No lightheadedness, dizziness or syncope. Her blood pressure is well controlled on Toprol-XL, losartan and HCTZ. Karon Alegria NP [address], [place], [address], [facility] 06/19/2020 15:10:32 1 text/html 79 year old female presents to the clinic with the following: Pain in the posterior upper legs Pain at rest and when walking Fells like she has muscle cramps ongoing migraines Neck pain / muscle tightness excerbates Winnie Hahn NP [address], [place], [address], [facility] 06/27/2020 14:27:13 1 text/html F/U Coronary Artery DiseaseReported bypatient.Severity/Progres alex:no/stable symptoms; no chest discomfort with daily activities; has not needed to use Nitroglycerin Context:taking medications as prescribed; no recent change in medication; no significant medication side effects; non-smoker Associated Symptoms:no chest pain at rest; no chest pain with exertion; no neck pain; no left arm pain; no dyspnea with exertion; no sweating; no nausea 80-year-old white female here for a complaint of foot pain primarily in the heel after she struck it against a step in the house. She also reports very minimal socializing contact she has been staying quite sequestered. Sometime back she had been complaining of dizzinessheadachesshe had an MRI donein [facility] showed a kink and stenosis in the COAL DIGGER. She has a history of coronary artery disease and underwent PTCI placement x2. She has significant aortic stenosis cephalgia hypertension dyslipidemia. Jose Vizcaino MD [address] , [place], [address], [facility] 12/24/2020 11:24:20 OBGyn Episode No OBEpisode recorded.
== END 2024-05-24 10:38 | disposition home or self-care (01) ==
LOC: HO.HAP 10:37
PROVIDERS: Visit Provider Nurse Practitioner Family
DX: Z46.1 Encounter for fitting and adjustment of hearing aid (principal)
CPT/HCPCS: V5267

== ENCOUNTER 2024-06-12 12:59 | Outpatient (REF) | payer SELFPAY ==
--- OUTSIDE RECORDS SUMMARY | 2024-06-12 14:35 | XMS_ITS | Data Portability ---
Author Organization [facility], CFL[facility] [address] Address [address] [place] [address] Care Team Providers Care Public Welfare Director Name Role Phone JOSE VIZCAINO Primary Care Provider JOSE VIZCAINO Primary Care Provider JANIA BOLDEN [facility] bradley KINZA [facility] D[facility]ger Assessment Encounter Date Assessment Date Assessment LastModified by Organization Details LastModified Time 06/19/2020 06/19/2020 [facility] 05/2014: widely patent LAD stent Echo [...] EF 77%, TID 1.48 LDL 125 (05/2019) [facility] 08/03/2019: Patent LAD stent, YOUSIF to RCA [facility] 08/16/2019: YOUSIF to LCx [email or web address] Not available 06/19/2020 14:36:08 Plan of Treatment Reminders Order Date Submit Date Provider Last Modified By Organization Details Last Modified Time Details Appointments None recorded. Lab None recorded. Referral physical therapist referral - Physical Therapist evaluate and treat both sciatica and neck pain 2020 021 [email or web address] [facility] Professional, [address], [address], [place], [address], 1 08:36:49 Procedures None recorded. Surgeries None recorded. Imaging XR, foot, 3 or more view 2020 021 [email or web address] [facility], [address] , [place], [address], 11:04:57 US, amanda fall, derianor acic, complete - To be done 02/2021 @ [facility] and read by Dr. Lr 2020 021 [email or web address] [facility], [address] , [place], [address], 14:29:50 Medication Orders Zithromax 250 mg tablet 2019 020 [email or web address] [facility] #[id number], [address], [place], [place], [id number], 1 11:38:22 prednison e 10 mg tablet 2019 020 [email or web address] [facility] #[id number], [address], [place], [place], [id number], 0 14:54:54 Patient TargetsNo targets recorded. Patient Instructions Encounter Date Encounter Id Patient Instructions Last Modified By Organization Details Last Modified Time 06/24/2020 [id number] Please see the attached information about sciatic [...] may also leave a message by calling [phone]. [email or web address] Not available 06/27/2020 14:24:46 Reason for [...] of : 942 Medica l Record #: [id number] Age / Gender : 79 years / F Master Laurie silva ID: [id number] Height : 61.0 in (154.9 cm) Access ion #: [id number] 2 Weight : 113.0 lb (51.3 kg) Admiss ion 14985 BSA: 1.48 mA? Admiss ion Status : [...] Left Ventri abhinav: The left ventri cular dental internship al cavity size is normal . LV [...] on 020 at 11:02: 50 AM Final [address] [place], [address], 09/27/2019 11:22:09 12/25/19 21 12/24/2020 XR, foot, 3 or more view Exam: XR Foot 3+ Views left Patien t Name: DIANA BRUNNER ID: [id number] 356 3 VIEWS LEFT FOOT 2020 HISTOR [...] Report Signed On: 2020 10:41: [address] [facility] [address], [place], [address], 12/24/2020 10:48:10 Result Notes None recorded. 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 503345495 Active 2011 PERCUTAN EOUS TRANSLUM INAL CORONARY ANGIOPLA STY(LAD 06/08/11) ; Origina l code:Z98 .61 Ente red By: Shauna Nuñez LPN; Signed By: Shauna Nuñez LPN Not Available [facility] 9 07:35:21 Hyperlip idemia 02838835 Completed 201105/18/2019 HYPERLIP IDEMIA; Origina l code:E78 .5 Enter ed By: Shauna Nuñez LPN; Signed By: YOBANY Brown, [facility] 0 07:40:25 Hyperten sive disorder 67197155 Active 2011 HYPERTEN ALEX; Origina l code:I10 Entered By: Kelsie Muñoz MA; Signed By: Theo Delgado MD Not Available [facility] 9 07:35:21 Lumbar radiculo laurence 718381793 Active 2011 LUMBAR RADICULO LAURENCE; Origina l code:M54 .16 Ente red By: Theo Delgado MD; Signed By: Theo Delgado MD Not Available [facility] 9 07:35:21 Aortic valve stenosis 61502122 Active 2012 AORTIC STENOSIS ; Origina l code:I35 .0 Enter ed By: Shauna Nuñez LPN; Signed By: Shauna Nuñez LPN Not Available [facility] 9 07:35:22 Syncope 554633509 Completed 201805/18/2019 SYNCOPE; Origina l code:R55 Entered By: Natalie Bolaños MA; Signed By: MD Aki Parham, [facility] 0 07:40:30 Vertigo 219826030 Completed 201805/18/2019 VERTIGO; Origina l code:R42 Entered By: Natalie Bolaños MA; Signed By: MD Aki Parham, [facility] 0 07:40:32 Magnetic resonanc e imaging of brain abnormal 406003691 Active 2018 ABNORMAL BRAIN MRI; Origina l code:R90 .89 Ente red By: Natalie Bolaños MA; Signed By: Juvenal Tineo MD Not Available [facility] 9 07:35:[address] segment elevatio n myocardi al infarcti on 886464518 Completed 201108/22/2019 MYOCARDI AL INFARCTI ON( 06/07/11) ; Origina l code:I21 .3 Enter ed By: Shauna Nuñez LPN; Signed By: YOBANY Brown, MARCOS [address] , [place], [address] , [facility] 0 12:48:47 Hypercho lesterol emia 42119538 Active 2019 Aki mccormack, [facility] 0 07:40:42 Headache 81133303 Completed 201906/06/2019 Aki mccormack, [facility] 0 11:21:08 Coronary arterios clerosis 71539805 Active 2019 Aki mccormack, [facility] 0 09:45:19 Abdomina l pain 00346919 Completed 201906/06/2019 Aki mccormack, [facility] 0 09:48:10 Angina pectoris 564545598 Completed 201906/06/2019 Aki mccormack, [facility] 0 09:48:05 Dizzines s 401496297 Completed 201901/29/2020 Aki mccormack, [facility] 0 10:20:44 Peripher al vascular disease 384965015 Active 2019 Aki mccormack, [facility] 0 11:20:58 Headache 47933000 Active 2019 Aki mccormack, [facility] 0 11:21:08 Allergic rhinitis 66657310 Completed 201901/29/2020 Aki mccormack, [facility] 0 10:20:41 Pain of left heel 60073682653 00632 Active 2020 Val Porter [facility], [facility] 1 10:21:11 Problem Notes None recorded. Procedures Surgical History Date Name Laterality Status Provider Name and Address Organization Details Recorded Time Cardiac - Coronary Artery Stent completed Helder Arias [facility] 05/18/2019 09:22:02 Cholecystectomy (Gallbladder) completed Helder [facility] 05/18/2019 09:22:15 Unlisted px ant segment eye completed Helder Juana [facility] 05/18/2019 09:22:25 Imaging Results Imaging Date Name Status LastModified by [facility] Details LastModified Time 09/04/2019 US, duplex, venous, lower extremity, unilateral completed [email or web address] Information not available 09/11/2019 14:10:01 09/01/2019 US, duplex, arterial, lower extremity completed Information not available 09/12/2019 11:11:04 09/01/2019 US, duplex, arterial, lower extremity completed Information not available 09/12/2019 11:10:08 09/27/2019 US, echocardiogram, transthoracic, complete completed [facility] [address], [place], [address], 09/27/2019 11:22:09 12/24/2020 XR, foot, 3 or more view completed [address] [facility] [address], [place], [address], 12/24/2020 10:48:10 Procedure Notes None recorded. Medical Equipment None Reported. Allergies Allergen ID Allergen Name Allergen Category Reaction Reaction Severity Criticality Documentation Date Start Date Code Code System Note Provider Name and Address Organization Details Recorded Time 6038403 melon extract food anaphylax is severe Not available 05/18/2019 85271 10 RxNorm Not Available Not Available Not [...] Not Available Not Available No t Available [facility] 10 billion cell-200 mg sprinkle capsule TK [...] Updated DateTime 0 154.94 cm 21.8 kg/m2 29819.2 2 g 82 /min 16 /min 91 % 91 % [facility] 0 10:54:07 Date Recorded Systolic blood pressure Diastolic blood pressure Provider Name and Address Organization Details Last Updated DateTime 10/09/2019 138 mm[Hg] 70 mm[Hg] [facility] 10/09/2019 12:20:35 Date Recorded Body height Body mass index (BMI) Body weight Heart rate Respiratory rate Oxygen saturation Oxygen saturation in Arterial blood by Pulse oximetry Body temperature Systolic blood pressure Diastolic blood pressure Provider Name and Address Organization Details Last Updated DateTime 0 154.94 cm 22.2 kg/m2 81471.1 1 g 80 /min 14 /min 98 % 98 % 98.1 [degF] 141 mm[Hg] 72 mm[Hg] [facility] 0 14:53:32 Date Recorded Body height Respiratory rate Body mass index (BMI) Body weight Oxygen saturation Oxygen saturation in Arterial blood by Pulse oximetry Heart rate Systolic blood pressure Diastolic blood pressure Provider Name and Address Organization Details Last Updated DateTime 1 154.94 cm 16 /min 21 kg/m2 92249.1 5 g 98 % 98 % 68 /min 153 mm[Hg] 73 mm[Hg] Nahomi Shipley [facility] 1 11:41:56 Date Recorded Body height Body [...] 9 153 mm[Hg] 83 mm[Hg] Beatriz Aleman [facility] 1 13:08:52 Date Recorded Body height Body mass index (BMI) Body weight Heart rate Respiratory rate Oxygen saturation Oxygen saturation in Arterial blood by Pulse oximetry Body temperature Systolic blood pressure Diastolic blood pressure Provider Name and Address Organization Details Last Updated DateTime 1 154.94 cm 20.2 kg/m2 65802.3 8 g 80 /min 16 /min 97 % 97 % 98 [degF] 138 mm[Hg] 60 mm[Hg] Hilary King [facility] 1 10:16:27 Social History Question Answer Notes LastModified by Organizat ion Details LastModified Time Tobacco Smoking Status Former Smoker quit 1963 Magui mccormack [facility] 10/09/2019 10:56:19 What Is Your Level Of Caffeine Consumption? Moderate Information not available 05/18/2019 How Much Tobacco Do You Chew? None [facility] Information not available 05/18/2019 Do You Or Have You Ever Used E-cigarettes Or Vape? 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 7 Walking [email or web address] Information not available 07/31/2019 How Often Do You Have A DRINK Containing ALCOHOL? Never Information not available 05/18/2019 How Often Do You Have Six Or More DRINKS On One Occasion? Never [email or web address] Information not available 07/31/2019 Marital Status Informatio n not available 05/18/2019 Do You Or Have You Ever Used Smokeless Tobacco? Never Used Smokeless Tobacco Information not available 05/18/2019 How Much Tobacco Do You Smoke? No [facility] Information not available 05/18/2019 Sex: Unknown Functional Status None recorded. Mental Status None recorded. Family History Relationship Description Onset Age of this Age Resolved Age Notes LastModified by Organization Details LastModified Time Father Myocardial infarction [email or web address] Not available 05/17 09:20:31 Father Heart disease [...] N HIV or AIDS N Other Y Thyroid Disease N Depression N Allergies (environmental/food) N Reflux/GERD (heartburn) N Emphysema or COPD N Hypercholesteromia Y Anxiety Disorder N Arthritis N Seizures / Epilepsy N Renal / Kidney Disease N Cancer N Hospitalization(s) N Cerebrovascular Accident (Stroke) N Abnormal Cardiac Stress Test N Hepatic / Liver Disease N Fibromyalgia N Abnormal EKG N Anemia N Heart Attack (IN) N Stomach Ulcers N Rheumatic Fever N Diabetes Mellitus N Hypercholesterolemia (high cholesterol) Y Bleeding Disorder N Heart Murmur N Hypertension (high blood pressure) Y Congestive Heart Failure (CHF) N No significant past medical history N Valvular Heart Disease N Blood Clots/DVT/Pulmonary Embolism N Asthma N Osteoporosis N Gynecological HistoryNo gynecological history recorded. Obstetrics History GPAL:G 0 P 0 0 0 0 Immunizations Vaccine Type Date Status Note Provider Nam e and Address Organization Details Recorded Time Influenza, adjuvanted, trivalent, PF 12/28/2016 completed Helder mccormack, [facility] 05/18/2019 09:19:29 Influenza, split virus, trivalent, PF 12/23/2011 completed Helder mccormack, [facility] 05/18/2019 09:19:29 Past Encounters Encounter ID Performer Location Encounter Start Date Encounter Closed Date Diagnosis/Indication Diagnosis SNOMED-CT Code Diagnosis ICD10 Code Diagnosis Note [id number] MD TIBURCIO Oliver_LAZARO_ [facility] [address],[place] [address] 05/18/2019 09:00:52 05/18/2019 13:00:38 Hypertensive disorder 58922263 I10 Aortic valve stenosis 60 524227 I35.0 Coronary arteriosclerosis 75879912 I25.10 Abdominal pain 37264088 R10.9 Headache 84007885 R51 Screening for osteoporosis 929430389 Z13.820 Screening for malignant neoplasm of breast 081595822 Z12.39 Screening for malignant neoplasm of colon 979729636 Z12.11 Hypercholesterolemia 136 00118 E78.00 Urine screening due 1712 15274 N39.9 Screening for malignant neoplasm of rectum 609624729 Z12.12 [id number] Karon Alegria, MARCOS CFL[facility]G_ [facility] [address] [place] [address] 05/18/2019 14:43:55 05/18/2019 21:29:37 Angina pectoris 638133389 I20.9 Coronary arteriosclerosis 39316719 I25.10 Hypertensive disorder 38 [address] percutaneous transluminal coronary angioplasty 598405467 Z98.61 Aortic valve stenosis 60 963655 I35.0 [id number] MD TIBURCIO Oliver_HFMG_ [facility] [address] [place] [address],[place] [address] 07/27/2019 10:33:48 07/27/2019 11:21:49 Hypercholesterolemia 90453936 E78.00 Hypertensive disorder 38 400391 I10 Urine screening due 1712 55331 N39.9 Dizziness 940604785 R42 MRI finding noted, significan t stenosis in the X RAY DEVELOPER, will refer to neurology Peripheral vascular disease 897105028 I73.9 Headache 08621696 R51 Aortic valve stenosis 60 512259 I35[address] surgery for possible TAVR [id number] Kinza Lr MD CF_HFMG_ [facility] Cardiolog y [address] [place] [address] 07/31/2019 10:54:57 07/31/2019 12:29:40 Coronary arteriosclerosis 85153694 I25.10 Aortic valve stenosis 60 104664 I35.0 [id number] Karonjuan manuel Alegria NP CFL_HFMG_ [facility] Cardiolog y [address] [place] [address] 08/22/2019 10:47:20 08/22/2019 20:55:36 Coronary arteriosclerosis 41687476 I25.10 Previous LAD stent patent Status post YOUSIF to RCA and LCx during staged procedure as above No angina Continue DAPT with ASA and Brilinta Patient intolerant to statins, takes fish oil Aortic valve stenosis 60 931828 I35.0 Mild aortic stenosis as above on echo Continue to monitor No SBE prophylaxi s needed Patient po st percutaneous transluminal coronary angioplasty 875117116 Z98.61 Status post YOUSIF to RCA and LCx Previous LAD stent patent Continue DAPT with ASA and Brilinta for 12 months uninterrup tiffanie Hyperlipidemia 26877584 E78.5 LDL 125, above goal She is intolerant to statins, takes fish oil 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 Lr [id number] Jose Vizcaino MD CFRedd_HFMG_ [address] [facility] [address] [facility],[address] [place] [address] 08/28/2019 10:19:51 08/28/2019 16:16:12 Coronary arteriosclerosis 27673556 I25.10 Hypertensive disorder 38 010479 I10 Headache 93621814 R51 Aortic valve stenosis 60 261312 [address]35[address] surgery for possible TAVR w/ Dr. Bolden. [id number] MD TIBURCIO Dasilva_HFMG_ [address] [facility] [address] [place] [address] 09/25/2019 13:07:37 09/25/2019 16:35:33 Peripheral vascular disease 123082933 I73.9 [id number] MD TIBURCIO Rodriguez_HFMG_ [facility] [address] [facility] [place] [address] 09/27/2019 09:46:38 09/27/2019 10:50:09 Aortic valve stenosis 60313154 I35.0 Echo done today reviewed. Her aortic [...] Dr. Lr. Referring back to Dr. Vizcaino. [id number] MD TIBURCIO Oliver_HFMG_ [address] [address] 10/09/2019 10:03:15 10/09/2019 15:13:33 Allergic rhinitis 45295751 J01.90 [id number] MD TIBURCIO Oliver_HFMG_ [address] [address] 10/18/2019 14:35:10 10/18/2019 16:54:51 Hypertensive disorder 17592408 I10 Allergic rhinitis 628877 04 J01.90 Headache 75163163 R51 [id number] Karon Alegria NP CFL_HFMG_ [facility] Cardiolog y [address] [place] [address] 06/19/2020 11:25:55 06/19/2020 15:35:53 Coronary arteriosclerosis 30255439 I25.10 Previous LAD stent patent Status post YOUSIF to RCA and LCx during staged procedure as above Patient asymptomat ic and feels great Continue DAPT with ASA and Plavix Patient intolerant to statins, takes fish oil and Zetia Aortic valve stenosis 60 085955 I35.0 Mild aortic stenosis as above on echo Continue to monitor with serial echoes Echo in 9 months prior to next visit No SBE prophylaxi s needed Patient po st percutaneous transluminal coronary angioplasty 887630125 Z98.61 Status post YOUSIF to RCA and LCx Previous LAD stent patent Continue DAPT with ASA and and Plavix until August then ASA only after August Hyperlipidemia 63113877 E78.5 LDL 139 (07/2019) above goal She is intolerant to statins, takes fish oil and Zetia 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 [address] 06/24/2020 12:58:21 06/24/2020 16:16:56 Sciatica 73162560 M54.30 Headache 14297039 R51.9 I also recommend you complete regular [...] after starting the magnesium. Peripheral vascular disease 451696676 I73.9 PVD stable with ASA/Plavix and exercise [id number] MD TIBURCIO Oliver_HFMG_ [address],[facility] [place] [place] [address] 12/24/2020 10:08:02 12/24/2020 19:52:32 Pain of left heel 8299813270 738900 M79.672 Conservati ve treatment Hypertensive disorder 38 862792 I10 Continue current medication s blood pressure is well controlled reduce salt intake Coronary arteriosclerosis 86469658 I25.10 Continue Plavix Health Concerns Section Related Observation LastModified by Organization Detai ls LastModified Time None Recorded Concern Status LastModified by Organization Details LastModified Time None Recorded Advance Directives Directive None Recorded Payers Encounter Date Sequence Insurance Name Policy Number Policy Love Covered Member ID Love Member ID Guarantor Name 10/09/2019 1 MEDICARE-OR (MEDICARE) Lina Timmy Cadieux [id number] Lina July Cadieux 10/09/2019 2 WPS - FOR LIFE (MEDICARE SUPPLEMENT) Lina Sonia Cadieux [id number] Lina July Cadieux 10/18/2019 1 MEDICARE-OR (MEDICARE) Lina Timmy Cadieux [id number] Lina July Cadieux 10/18/2019 2 WPS - FOR LIFE (MEDICARE SUPPLEMENT) Lina Sonia Cadieux [id number] Lina July Cadieux 06/19/2020 1 MEDICARE-OR (MEDICARE) Lina Timmy Cadieux [id number] Lina July Cadieux 06/19/2020 2 WPS - FOR LIFE (MEDICARE SUPPLEMENT) Lina Sonia Cadieux [id number] Lina July Cadieux 06/24/2020 1 MEDICARE-OR (MEDICARE) Lina Timmy Cadieux [id number] Lina July Cadieux 06/24/2020 2 WPS - FOR LIFE (MEDICARE SUPPLEMENT) Lina May Cadieux [id number] Lina July Cadieux 12/24/2020 1 MEDICARE-OR (MEDICARE) Lina Warner Cadieux [id number] Lina July Cadieux 12/24/2020 2 WPS - FOR LIFE (MEDICARE SUPPLEMENT) Lina Bedoya [id number] Lina Bedoya Notes Date Note Type Note [...] complaining of dizzinessheadachesshe had an MRI donein [facility] showed a kink and stenosis in the X RAY DEVELOPER. She has a history of coronary artery disease and recently had PTCI placement x2. She has significant aortic stenosis cephalgia hypertension dyslipidemia. MD Elvia [address] , [place], [address], [facility] 10/09/2019 13:01:32 0 text/html F/U Coronary [...] complaining of dizzinessheadachesshe had an MRI donein [facility] showed a kink and stenosis in the X RAY DEVELOPER. She has a history of coronary artery disease and recently had PTCI placement x2. She has significant aortic stenosis cephalgia hypertension dyslipidemia. MD Elvia [address], [place], [address], [facility] 10/18/2019 16:49:46 1 text/html 79-year-old female who was seen in clinic for routine follow-up. She has a history of IN with CAD with staged PTCA with YOUSIF [...] HCTZ. Karon Alegria NP [address], [place], [address], [facility] 06/19/2020 15:10:32 1 text/html 79 year old female presents to the clinic with the following: Pain in the posterior upper legs Pain at rest and when walking Fells like she has muscle cramps ongoing migraines Neck pain / muscle tightness excerbates Winnie Hahn NP [address], [place], [address], [facility] 06/27/2020 14:27:13 1 text/html F/U Coronary [...] complaining of dizzinessheadachesshe had an MRI donein [facility] showed a kink and stenosis in the X RAY DEVELOPER. She has a history of coronary artery disease and underwent PTCI placement x2. She has significant aortic stenosis cephalgia hypertension dyslipidemia. Jose Vizcaino MD [address] , [place], [address], [facility] 12/24/2020 11:24:20 OBGyn Episode No OBEpisode recorded.
== END 2024-06-12 13:00 | disposition home or self-care (01) ==
LOC: HO.HAP 12:59
PROVIDERS: Visit Provider Nurse Practitioner Family
DX: Z13.89 Encounter for screening for other disorder (principal)

== ENCOUNTER 2024-08-03 14:57 | Outpatient (REF) | payer SELFPAY | END 2024-08-03 14:58 | disposition home or self-care (01) | LOC: HO.HAP 14:57 | PROVIDERS: Visit Provider Nurse Practitioner Family | DX: Z13.89 Encounter for screening for other disorder (principal) | CPT/HCPCS: 92700 ==

== ENCOUNTER 2024-08-08 15:46 | Outpatient (REF) | payer SELFPAY ==
--- OUTSIDE RECORDS SUMMARY | 2024-08-08 15:49 | XMS_ITS | Data Portability ---
Author Organization [facility] [employer], [facility] [address] [place] [address] Care Team Providers Care Oxyacetylene Cutter Name Role Phone JOSE VIZCAINO Primary Care Provider [phone] JOSE VIZCAINO Primary Care Provider JANIA BOLDEN [facility] Neurosurgery Physician Assessment Encounter Date Assessment Date Assessment LastModified by Organization Details LastModified Time 06/19/2020 06/19/2020 [facility] 05/2014: widely patent LAD stent Echo [...] EF 77%, TID 1.48 LDL 125 (05/2019) [facility] 08/03/2019: Patent LAD stent, YOUSIF to RCA [facility] 08/16/2019: YOUSIF to LCx [email or web address] Not available 06/19/2020 14:36:08 Plan of Treatment Reminders Order Date Submit Date Provider Last Modified By Organization Details Last Modified Time Details Appointments None recorded. Lab None recorded. Referral physical therapist referral - Physical Therapist evaluate and treat both sciatica and neck pain 2020 021 [email or web address] [facility], [address], [address], [place], [address], 1 08:36:49 Procedures None recorded. Surgeries None recorded. Imaging XR, foot, 3 or more view 2020 021 [email or web address] [facility], [address] , [place], [address], 11:04:57 US, amanda fall, derianor acic, complete - To be done 02/2021 @ [facility] and read by Dr. Lr 2020 021 [email or web address] [facility], [address] , [place], [address], 14:29:50 Medication Orders Zithromax 250 mg tablet 2019 020 [email or web address] [facility], [address], [place], [place], [id number], 1 11:38:22 prednison e 10 mg tablet 2019 020 [email or web address] [facility] [employer] [facility] #24[facility], [address], [place], [place], [id number], 0 14:54:54 Patient TargetsNo targets recorded. Patient Instructions Encounter Date Encounter Id Patient Instructions Last Modified By Organization Details Last Modified Time 06/24/2020 [id number] Please see the attached information about sciatic [...] may also leave a message by calling [phone]. [email or web address] Not available 06/27/2020 14:24:46 Reason for [...] of : 942 Medica l Record #: [id number] Age / Gender : 79 years / F Master Laurie silva ID: [id number] Height : 61.0 in (154.9 cm) Access ion #: [id number] 2 Weight : 113.0 lb (51.3 kg) Admiss ion 39026 BSA: 1.48 mA? Admiss ion Status : [...] Left Ventri abhinav: The left ventri cular architect internship al cavity size is normal . [...] normal left atrial pressu re. Right Ventri abhniav: Normal right ventri cular cavity size, wall [...] on 020 at 11:02: 50 AM Final [address] [place], [address], 09/27/2019 11:22:09 12/25/19 21 12/24/2020 XR, foot, 3 or more view Exam: XR Foot 3+ Views left Patien t Name: DIANA BRUNNER ID: [id number] 356 3 VIEWS LEFT FOOT 2020 HISTOR [...] Report Signed On: 2020 10:41: [address] [facility] [address], [place], [address], 12/24/2020 10:48:10 Result Notes None recorded. Problems Name Problem SNOMED Code Status Onset Date Resolution Date Notes Provider Name and Address Organization Details Recorded Time Clinical finding Completed 201105/18/2019 CORONARY ATHEROSC LEROSIS COMANCHE CORONARY ARTERY; Origina l code:I25 .10 Ente red By: Renetta Henderson ; Signed By: Renetta mccormack, 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 0 07:40:25 Hyperten sive disorder 21206406 Active 2011 HYPERTEN ALEX; Origina l code:I10 Entered By: Kelsie Muñoz MA; Signed By: Theo Delgado MD Not Available [facility] 9 07:35:21 Lumbar radiculo laurence 318073144 Active 2011 LUMBAR RADICULO LAURENCE; Origina l code:M54 .16 Ente red By: Theo Delgado MD; Signed By: Theo Delgado MD Not Available [facility] 9 07:35:21 Aortic valve stenosis 00854493 Active 2012 AORTIC STENOSIS ; Origina l code:I35 .0 Enter ed By: Shauna Nuñez LPN; Signed By: Shauna Nuñez LPN Not Available [facility] 9 07:35:22 Syncope 246345256 Completed 201805/18/2019 SYNCOPE; Origina l code:R55 Entered By: Natalie Bolaños MA; Signed By: MD Aki Parham, [facility] 0 07:40:30 Vertigo 552578414 Completed 201805/18/2019 VERTIGO; Origina l code:R42 Entered By: Natalie Bolaños MA; Signed By: MD Aki Parham, [facility] 0 07:40:32 Magnetic resonanc e imaging of brain abnormal 733434931 Active 2018 ABNORMAL BRAIN MRI; Origina l code:R90 .89 Ente red By: Natalie Bolaños MA; Signed By: Juvenal Tineo MD Not Available [facility] 9 07:35:[address] segment elevatio n myocardi al infarcti on 418641422 Completed 201108/22/2019 MYOCARDI AL INFARCTI ON( 06/07/11) ; Origina l code:I21 .3 Enter ed By: Shauna Nuñez LPN; Signed By: YOBANY Brown, MARCOS [address] , [place], [address] , [facility] 0 12:48:47 Hypercho lesterol emia 69337853 Active 2019 Aki mccormack, [facility] 0 07:40:42 Headache 15523492 Completed 201906/06/2019 Aki Modi [facility], [facility] 0 11:21:08 Coronary arterios clerosis 83786622 Active 2019 Aki mccormack, [facility] 0 09:45:19 Abdomina l pain 32873541 Completed 201906/06/2019 Aki mccormack, [facility] 0 09:48:10 Angina pectoris 816293211 Completed 201906/06/2019 Aki mccormack, [facility] 0 09:48:05 Dizzines s 951729799 Completed 201901/29/2020 Aki mccormack, [facility] 0 10:20:44 Peripher al vascular disease 345020454 Active 2019 Aki mccormack, [facility] 0 11:20:58 Headache 33440753 Active 2019 Aki mccormack, [facility] 0 11:21:08 Allergic rhinitis 41029383 Completed 201901/29/2020 Aki mccormack, [facility] 0 10:20:41 Pain of left heel 82985181631 72977 Active 2020 Val Porter [facility], [facility] 1 10:21:11 Problem Notes None recorded. Procedures Surgical History Date Name Laterality Status Provider Name and Address Organization Details Recorded Time Cardiac - Coronary Artery Stent completed [facility] 05/18/2019 09:22:02 Cholecystectomy (Gallbladder) completed [facility] 05/18/2019 09:22:15 Unlisted px ant segment eye completed [facility] 05/18/2019 09:22:25 Imaging Results None recorded. Procedure Notes None recorded. Medical Equipment None Reported. Allergies Allergen ID Allergen Name Allergen Category Reaction Reaction Severity Criticality Documentation Date Start Date Code Code System Note Provider Name and Address Organization Details Recorded Time 2037835 melon extract food anaphylax is severe Not available 05/18/2019 86615 10 RxNorm Helder Arias [facility], [facility] 0 09:16:39 Medications Name Sig Start Date Stop Date [...] Not Available Not Available No t Available [facility] 10 billion cell-200 mg sprinkle capsule TK [...] Not Available Vitals Date Recorded Body height Respiratory rate Body mass index (BMI) Body weight Oxygen saturation Oxygen saturation in Arterial blood by Pulse oximetry Heart rate Systolic And Diastolic Provider Name and Address Organization Details Last Updated DateTime 1 154.94 cm 16 /min 21 kg/m2 33613.1 5 g 98 % 98 % 68 /min 153/73 mm[Hg] Nahomi Shipley [facility] 1 11:41:56 Date Recorded Body height Body temperature Respiratory rate Oxygen saturation Oxygen saturation in Arterial blood by Pulse oximetry Heart rate Systolic And Diastolic Provider Name and Address Organization Details Last Updated DateTime 1 154.94 cm 97.1 [degF] 18 /min 97 % 97 % 87 /min 153/83 mm[Hg] Beatriz Aleman [facility] 1 13:08:52 Date Recorded Systolic And Diastolic Provider Name and Address Organization Details Last Updated DateTime 10/09/2019 138/70 mm[Hg] Radha Galarzader [facility] 10/09/2019 12:20:35 Date Recorded Body height Body mass index (BMI) Body weight Heart rate Respiratory rate Oxygen saturation Oxygen saturation in Arterial blood by Pulse oximetry Provider Name and Address Organization Details Last Updated DateTime 0 154.94 cm 21.8 kg/m2 83773.2 2 g 82 /min 16 /min 91 % 91 % [facility] 0 10:54:07 Date Recorded Body height Body mass index (BMI) Body weight Heart rate Respiratory rate Oxygen saturation Oxygen saturation in Arterial blood by Pulse oximetry Body temperature Systolic And Diastolic Provider Name and Address Organization Details Last Updated DateTime 0 154.94 cm 22.2 kg/m2 27712.1 1 g 80 /min 14 /min 98 % 98 % 98.1 [degF] 141/72 mm[Hg] [facility] 0 14:53:32 Date Recorded Body height Body mass index (BMI) Body weight Heart rate Respiratory rate Oxygen saturation Oxygen saturation in Arterial blood by Pulse oximetry Body temperature Systolic And Diastolic Provider Name and Address Organization Details Last Updated DateTime 1 154.94 cm 20.2 kg/m2 10270.3 8 g 80 /min 16 /min 97 % 97 % 98 [degF] 138/60 mm[Hg] Hilary King [facility] 1 10:16:27 Social History Question Answer Notes LastModified by Organizat ion Details LastModified Time Tobacco Smoking Status Former Smoker quit 1964 Magui Yun ksenia, [facility] 10/09/2019 10:56:19 What Is Your Level Of Caffeine Consumption? Moderate Information not available 05/18/2019 How Much Tobacco Do You Chew? 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 7 Walking [email or web address] Information not available 07/31/2019 How Often Do You Have A DRINK Containing ALCOHOL? Never Information not available 05/18/2019 How Often Do You Have Six Or More DRINKS On One Occasion? Never Information not available 07/31/2019 Marital Status Informatio n not available 05/18/2019 How Much Tobacco Do You Smoke? No Information not available 05/18/2019 Sex: Unknown Functional Status Question Answer Note LastModified by Organizat ion Details LastModified Time Do you or have you ever used smokeless tobacco? Never used smokeless tobacco Information not available 05/18/2019 Do you or have you ever used e-cigarettes or vape? Never used electronic cigarettes Information not available 05/18/2019 Mental Status None recorded. Family History Relationship Description Onset Age of this Age Resolved Age Notes LastModified by Organization Details LastModified Time Father Myocardial infarction Not available 05/17 09:20:31 Father Heart disease Not available 2019 09:21:27 Mother Myocardial infarction Not available 05/17 09:20:31 Mother Heart disease Not available 2019 09:21:27 Brother Family history of malignant neoplasm Not available 2019 09:20:53 Brother Heart disease Not available 2019 09:21:27 Sister Family history of malignant neoplasm [email or web address] Not available 2019 09:20:53 Sister Heart disease [email or web address] Not available 2019 09:21:27 Medical History Condition Response HIV or AIDS N Coronary Artery Disease N Other Y Thyroid Disease N Depression N Anemia N Allergies (environmental/food) N Reflux/GERD (heartburn) N Emphysema or COPD N Hypercholesteromia Y Heart Attack (NE) N Stomach Ulcers N Anxiety Disorder N Rheumatic Fever N Diabetes Mellitus N Hypercholesterolemia (high cholesterol) Y Bleeding Disorder N Arthritis N Heart Murmur N Seizures / Epilepsy N Hypertension (high blood pressure) Y Renal / Kidney Disease N Congestive Heart Failure (CHF) N No significant past medical history N Valvular Heart Disease N Blood Clots/DVT/Pulmonary Embolism N Cancer N Asthma N Hospitalization(s) N Cerebrovascular Accident (Stroke) N Abnormal Cardiac Stress Test N Hepatic / Liver Disease N Fibromyalgia N Abnormal EKG N Osteoporosis N Gynecological HistoryNo gynecological history recorded. Obstetrics History GPAL:G 0 P 0 0 0 0 Immunizations Vaccine Type Date Status Note Provider Nam e and Address Organization Details Recorded Time Influenza, adjuvanted, trivalent, PF 12/28/2016 completed Helder mccormack, [facility] 05/18/2019 09:19:29 Influenza, split virus, trivalent, PF 12/23/2011 completed Helder mccormack, [facility] 05/18/2019 09:19:29 Past Encounters Encounter ID Performer Location Encounter Start Date Encounter Closed Date Diagnosis/Indication Diagnosis SNOMED-CT Code Diagnosis ICD10 Code Diagnosis Note [id number] Jose Vizcaino MD [facility] [place] [address] [address] 05/18/2019 09:00:52 05/18/2019 13:00:38 Hypertensive disorder 13036793 I10 Aortic valve stenosis 60 431225 I35.0 Coronary arteriosclerosis 74154257 I25.10 Abdominal pain 30780793 R10.9 Headache 90261957 R51 Screening for osteoporosis 108965135 Z13.820 Screening for malignant neoplasm of breast 829591559 Z12.39 Screening for malignant neoplasm of colon 687289501 Z12.11 Hypercholesterolemia 136 83609 E78.00 Urine screening due 1712 35316 N39.9 Screening for malignant neoplasm of rectum 114895767 Z12.12 [id number] MARCOS [facility] [address] [place] [address] 05/18/2019 14:43:55 05/18/2019 21:29:37 Angina pectoris 839527725 I20.9 Coronary arteriosclerosis 97377284 I25.10 Hypertensive disorder 38 [address] I[address] percutaneous transluminal coronary angioplasty 889005354 Z98.61 Aortic valve stenosis 60 290706 I35.0 [id number] MD TIBURCIO Oliver_[facility] [address] [place] [address],[place] [address] 07/27/2019 10:33:48 07/27/2019 11:21:49 Hypercholesterolemia 82988223 E78.00 Hypertensive disorder 38 467726 I10 Urine screening due 1712 59619 N39.9 Dizziness 545287578 R42 MRI finding noted, significan t stenosis in the DIE SIZER, will refer to neurology Peripheral vascular disease 693626372 I73.9 Headache 30304679 R51 Aortic valve stenosis 60 936484 [address]35[address] surgery for possible TAVR [id number] MD TIBURCIO Payne[facility] [address] [place] [address] 07/31/2019 10:54:57 07/31/2019 12:29:40 Coronary arteriosclerosis 32039898 I25.10 Aortic valve stenosis 60 234555 I35.0 [id number] MD TIBURCIO [facility] [address] [place] [address] 08/22/2019 10:47:20 08/22/2019 20:55:36 Coronary arteriosclerosis 81367112 I25.10 Previous LAD stent patent Status post YOUSIF to RCA and LCx during staged procedure as above No angina Continue DAPT with ASA and Brilinta Patient intolerant to statins, takes fish oil Aortic valve stenosis 60 032837 I35.0 Mild aortic stenosis as above on echo Continue to monitor No SBE prophylaxi s needed Patient po st percutaneous transluminal coronary angioplasty 388106963 Z98.61 Status post YOUSIF to RCA and LCx Previous LAD stent patent Continue DAPT with ASA and Brilinta for 12 months uninterrup tiffanie Hyperlipidemia 33788142 E78.5 LDL 125, above goal She is intolerant to statins, takes fish oil 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 Lr [id number] Jose Vizcaino [place] [address] 08/28/2019 10:19:51 08/28/2019 16:16:12 Coronary arteriosclerosis 56522253 I25.10 Hypertensive disorder 38 730824 I10 Headache 06938345 R51 Aortic valve stenosis 60 768671 I35.[address] surgery for possible TAVR w/ Dr. Bolden. [id number] Prem Ignacio MD [facility] [place] [address] [address] 7 09/25/2019 13:07:37 09/25/2019 16:35:33 Peripheral vascular disease 666143932 I73.9 [id number] Jania Bolden MD [facility] [place] [address] [address] [address] 09/27/2019 09:46:38 09/27/2019 10:50:09 Aortic valve stenosis 55094762 I35.0 Echo done today reviewed. Her aortic [...] Dr. Lr. Referring back to Dr. Vizcaino. [id number] Jose Vizcaino MD [facility]ed[facility] [address] [facility] [address],[place] [address] 10/09/2019 10:03:15 10/09/2019 15:13:33 Allergic rhinitis 09390814 J01.90 [id number] Jose Vizcaino MD [facility] [place] [facility] [address] [place] [address],[place] [address] 10/18/2019 14:35:10 10/18/2019 16:54:51 Hypertensive disorder 13810231 I10 Allergic rhinitis 173891 04 J01.90 Headache 90276688 R51 [id number] Kinza Lr MD [facility] [address] [place] [address] 06/19/2020 11:25:55 06/19/2020 15:35:53 Coronary arteriosclerosis 13448751 I25.10 Previous LAD stent patent Status post YOUSIF to RCA and LCx during staged procedure as above Patient asymptomat ic and feels great Continue DAPT with ASA and Plavix Patient intolerant to statins, takes fish oil and Zetia Aortic valve stenosis 60 360038 I35.0 Mild aortic stenosis as above on echo Continue to monitor with serial echoes Echo in 9 months prior to next visit No SBE prophylaxi s needed Patient po st percutaneous transluminal coronary angioplasty 276721087 Z98.61 Status post YOUSIF to RCA and LCx Previous LAD stent patent Continue DAPT with ASA and and Plavix until August then ASA only after August Hyperlipidemia 46094227 E78.5 LDL 139 (07/2019) above goal She is intolerant to statins, takes fish oil and Zetia 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 [address] 06/24/2020 12:58:21 06/24/2020 16:16:56 Sciatica 51461175 M54.30 Headache 53390448 R51.9 I also recommend you complete regular [...] after starting the magnesium. Peripheral vascular disease 652778085 I73.9 PVD stable with ASA/Plavix and exercise [id number] Jose Vizcaino MD [facility] [place] [facility] [address],[place] [address] 12/24/2020 10:08:02 12/24/2020 19:52:32 Pain of left heel 0635540922 654288 M79.672 Conservati ve treatment Hypertensive disorder 38 204939 I10 Continue current medication s blood pressure is well controlled reduce salt intake Coronary arteriosclerosis 12983291 I25.10 Continue Plavix Health Concerns Section Related Observation LastModified by Organization Detai ls LastModified Time None Recorded Concern Status LastModified by Organization Details LastModified Time None Recorded Advance Directives Directive None Recorded Payers Insurance Date Sequence Insurance Name Policy Number Policy Love Covered Member ID Love Member ID Guarantor Name 09/29/2019 2 [employer]PS - FOR LIFE (SECONDARY TO MEDICARE) Ildefonso Bedoya [id number] Lina Vieyraieux 03/25/2021 1 [place] Lina Emmanuelx [id number] Lina Vieyraieux 03/25/2021 2 FOR LIFE ( - MEDICARE SUPPLEMENT) Lina Bedoya [id number] Lina Bedoya Notes Date Note Type Note [...] complaining of dizzinessheadachesshe had an MRI [facility] showed a kink and stenosis in the DIE SIZER. She has a history of coronary artery disease and recently had PTCI placement x2. She has significant aortic stenosis cephalgia hypertension dyslipidemia. MD [address], [place], [address], [facility] 10/09/2019 13:01:32 0 text/html F/U Coronary Artery [...] complaining of dizzinessheadachesshe had an MRI donein [facility] showed a kink and stenosis in the DIE SIZER. She has a history of coronary artery disease and recently had PTCI placement x2. She has significant aortic stenosis cephalgia hypertension dyslipidemia. MD [address], [place], [address], [facility] 10/18/2019 16:49:46 1 text/html 79-year-old female who was seen in clinic for routine follow-up. She has a history of NE with CAD with staged PTCA with YOUSIF [...] HCTZ. Karon Alegria NP [address], [place], [address], [facility] 06/19/2020 15:10:32 1 text/html 79 year old female presents to the clinic with the following: Pain in the posterior upper legs Pain at rest and when walking Fells like she has muscle cramps ongoing migraines Neck pain / muscle tightness excerbates Winnie Hahn NP [address], [place], [address], [facility] 06/27/2020 14:27:13 1 text/html F/U Coronary Artery [...] complaining [place] in the DIE SIZER. She has a history of coronary artery disease and underwent PTCI placement x2. She has significant aortic stenosis cephalgia hypertension dyslipidemia. Jose Vizcaino MD [address], [place], [address], [facility] 12/24/2020 11:24:20 OBGyn Episode No OBEpisode recorded.
--- NOTE | 2024-08-09 10:37 | MHC.AU.HA3 ---
Hearing Instrument Follow-Up- Binaural Date of Visit: 08/08/24 Right Ear: Zenon, Model, Color, Serial Number: Nilo Saldaña [id number] SN: [id number] Color: Treasure Beaamir Cardiac Exercise Physiologist Repair Warranty: 07/28/2024 Cardiac Exercise Physiologist Loss and Damage Warranty: 07/28/2024 [facility] Service Plan: 07/28/2024 Battery Size: Rechargeable Vocational Rehabilitation Consultant/Slim Tube: 0M Earmold/Dome/CShell/SlimTip:Small vented dome (no retention tail) Type of Wax Guard: CeruShield Dispensed By: [facility] Date of Fittin05/23/2021 Left Ear: Zenon, Model, Color, Serial Number: Nilo Saldaña [id number] SN: [id number] Color: Treasure Beige Cardiac Exercise Physiologist Repair Warranty: 07/28/2024 Cardiac Exercise Physiologist Loss and Damage Warranty: 07/28/2024 [facility] Service Plan: 07/28/2024 Battery Size: Rechargeable Vocational Rehabilitation Consultant/Slim Tube: 0M Earmold/Dome/CShell/SlimTip: Small open dome (no retention tail) Type of Wax Guard: CeruShield Dispensed By: [facility] Date of Fittin05/23/2021 Follow-Up Summary: Updated hearing test - see audio. Accompanied by son, Jann. Picked up HAs, electric power machine operator, cord, and wall plug from previous drop off. Hearing is stable but noted continuing hearing difficulties. Advised open domes not appropriate. Tried switching to small vented domes again. However, difficulty fully inserting left, would not stay in ear. Once fully inserted, changed acoustic coupling in [employer], reran feedback manager risk, and reprogrammed HAs. However, Lina then noted sound quality not as good, preferred original settings. Reset to previous settings. Lina opted to go back to open dome on left ear, keep vented dome on right ear. Discussed pros/cons of different acoustic couplings given severity of hearing loss. Recommended custom EMs due to continued retention issues with left ear. Quoted $130 for slim tips, although may need to add canal lock or skeleton lock. Lina opted to try as is for now, understanding current set up not ideal for her hearing loss. If issues persist, will consider EMs. Recommendations: Hearing instrument follow-up or maintenance as needed. Please contact our clinic with any questions or concerns. Diagnosis Code(s): Primary Diagnosis: H90.3 Bilateral Sensorineural Hearing Loss Signature: Provider: Shima Goddard, CCC-A
== END 2024-08-08 15:47 | disposition home or self-care (01) ==
LOC: HO.SH 15:46
PROVIDERS: PCP Nurse Practitioner Family; Visit Provider Nurse Practitioner Family
DX: Z01.118 Encounter for examination of ears and hearing with other abnormal findings (principal); H90.3 Sensorineural hearing loss, bilateral
CPT/HCPCS: 92552; 92556; 92567

== ENCOUNTER 2024-08-30 01:16 | Emergency (ER) | payer MEDICARE, OTHER, SELFPAY ==
[2024-08-30] VITALS (9 sets, daily range): BP systolic 146–162; BP diastolic 65–80; PULSE 64–94; RESP 16–18; TEMP 36.1–36.4; O2SAT 94–98; BMI 24.6
--- NOTE | ~2024-08-30 | XR_ITS ---
CLINICAL HISTORY: fall, pain 2 view right elbow Comparison: None provided Findings: No acute fractures. Normal alignment. There is osteopenia. No significant loss of joint space, osteophytes, or erosions. No joint effusion. No radiopaque foreign body. There is soft tissue edema. IMPRESSION: No acute fractures of the elbow Soft tissue edema Osteopenia This document has been electronically signed by: Juvenal Luaren MD on 08/30/2024 05:14:24
--- NOTE | ~2024-08-30 | CT_ITS ---
CLINICAL HISTORY: mechanical fall on blood thinners CT head without contrast Comparison: None provided Findings: No intra-axial mass, midline shift, hydrocephalus, or acute hemorrhage. There are central and cortical involutional changes. There bilateral small periventricular and subcortical white matter hypodensities. Incidentally noted is 1.4 cm likely left parietal skull hemangioma The visualized paranasal sinuses and mastoid air cells are normal. The orbits are within normal limits. No skull fracture. IMPRESSION: No acute intracranial findings. Mild central and cortical involutional changes Old small-vessel mild white matter ischemic changes This document has been electronically signed by: Juvenal Lauren MD on 08/30/2024 05:12:05
--- NOTE | ~2024-08-30 | XR_ITS ---
CLINICAL HISTORY: fall with pain 2 view right forearm Comparison: None provided Findings: There is an acute transverse fracture with mild ventral convex angulation. There is soft tissue edema. There is osteopenia. No joint effusion. No significant arthritic change. No radiopaque foreign body. IMPRESSION: acute transverse fracture with mild ventral convex angulation. There is soft tissue edema. There is osteopenia. This document has been electronically signed by: Juvenal Lauren MD on 08/30/2024 05:25:05
--- NOTE | ~2024-08-30 | CT_ITS ---
CLINICAL HISTORY: mechanical fall, head strike CT cervical spine without contrast Comparison: None provided Findings: There is osteopenia Normal vertebral body alignment. There are multilevel disc osteophyte complexes small disc protrusions. Multilevel multifactorial mild central canal and [id number] foraminal stenoses. There is fusion left C4-C5 facets. There is linear lucency with sclerotic margins through the left transverse process of C1 highly likely developmental or congenital unlikely that this represents old or acute fracture. Visualized intracranial contents are unremarkable. No cervical fluid collections or masses. Lung apices are clear. IMPRESSION: Osteopenia Multilevel spondylosis Linear lucency with sclerotic margins through the left transverse process of C1 highly likely developmental or congenital unlikely that this represents old or acute fracture. This could be compared to old CT cervical spine imaging if available This document has been electronically signed by: Juvenal Lauren MD on 08/30/2024 05:24:20
--- NOTE | 2024-08-30 01:47 | ED.FALL ---
HPI - Fall General Chief Complaint: Fall Stated Complaint: Fall Source: patient, EMS, RN notes reviewed and old records reviewed Mode of arrival: EMS Limitations: no limitations History of Present Illness ED Provider: Dr. Genoveva Mei HPI Narrative: 84-year-old female with history of DVT on Eliquis, CAD, hypertension presenting after a mechanical fall that occurred at the assisted living facility where she is currently a resident. Patient states she was sitting on the toilet and tried to get up but slipped on the floor, falling and hitting her right arm and head. No loss of consciousness. Was ambulatory on scene by the time EMS arrived. Describes a slight headache and right forearm pain but denies neck pain, chest pain, abdominal pain or hip pain. Had been feeling relatively well prior to the fall. No recent illness including fevers or chills, cough or cold-type symptoms, nausea, vomiting or diarrhea. Related Data Home Medications ?Medication ?Instructions ?Recorded ?Confirmed cholecalciferol (vitamin D3) 50 50 mcg PO DAILY 08/30/24 08/30/24 mcg (2,000 unit) tablet (Vitamin D3) duloxetine 20 mg capsule,delayed 20 mg PO DAILY 08/30/24 08/30/24 release duloxetine 60 mg capsule,delayed 60 mg PO DAILY 08/30/24 08/30/24 release evolocumab 140 mg/mL subcutaneous 140 mg subcut Q2W 08/30/24 08/30/24 syringe (Repatha Syringe) metoprolol succinate 50 mg 150 mg PO DAILY 08/30/24 08/30/24 tablet,extended release 24 hr omega-3 fatty acids 1 cap PO QAM 08/30/24 08/30/24 thiamine HCl (vitamin B1) 100 mg 100 mg PO DAILY 08/30/24 08/30/24 tablet timolol maleate 0.5 % eye drops 1 drp ophthalmic (eye) DAILY 08/30/24 08/30/24 Previous Rx's ?Medication ?Instructions ?Recorded aspirin 81 mg chewable tablet 81 mg PO DAILY 30 days #30 tabs 03/18/21 ezetimibe 10 mg tablet 10 mg PO DAILY 30 days #30 tabs 03/18/21 losartan 50 mg tablet 100 mg PO DAILY 30 days #60 tabs 03/18/21 olanzapine 5 mg tablet 5 mg PO BEDTIME 30 days #30 tabs 03/18/21 Allergies Allergy/AdvReac Type Severity Reaction Status Date / Time Smfhfzo-[id number]-[id number] Reductase Allergy Unknown Verified 08/30/24 01:24 Inhibitor melons Allergy Unknown throat Uncoded 08/13/11 00:00 sweling Review of Systems Review of Systems: Yes all other systems are reviewed and are negative [facility] Past Medical History Attestation statement: The following information was validated with the patient. Source: old records reviewed Medical History Myocardial infarct, old HTN (hypertension) Surgical History H/O heart artery stent Social History Social History Household Members: Family Housing: House Do you presently have visiting nurse or other home services: No Alcohol intake: never Patient Tobacco Use Status: Never used Tobacco Smoked in Last 30 Days: No Use of substances other than those prescribed or required for medical reasons: No Advance Directives: Yes Advance Directives on File: Yes Advance Directives Date on File: 08/04/23 service: No Sexual orientation: Straight/Heterosexual Physical Exam Vital Signs: Vital Signs: Last Vital Signs Temp 97.4 F 08/30/24 14:00 Pulse 94 08/30/24 15:48 Resp 17 08/30/24 14:00 BP 153/77 H 08/30/24 15:49 Pulse Ox 94 08/30/24 14:00 O2 Del Method Room Air 08/30/24 14:00 BMI result Body Mass Index 24.6 GENERAL: Uncomfortable-Appearing, conversant, mild distress due to pain. SKIN: Normal skin color for ethnicity, warm, dry, intact, no rashes noted. HEENT: Normocephalic, atraumatic, no stridor, airway patent, no raccoon's eyes, no Wilcox sign, dentition intact, EOMI. NECK: Soft, supple, full ROM, midline structures nontender, no step-offs, no deformities, no lymphadenopathy. CHEST: Heart regular rate and rhythm, no murmurs, symmetric chest rise and fall, no seatbelt sign, crepitus. PULMONARY: Clear to auscultation bilaterally, no labored breathing, no wheezes/rhales/rhonchi. ABDOMINAL: Soft, nondistended, nontender, positive bowel sounds in all quadrants. : Deferred. MUSCULOSKELETAL: Normal tone, full range of motion, no deformities, Contusion overlying the ulnar aspect of the right forearm, neurovascularly intact distally, no joint effusion at the elbow or wrist, full function of the radial, median and ulnar nerves of the right hand. NEURO: Alert and oriented x3, CN II through XII intact, equal strength and sensation bilateral upper and lower extremities, no focal neurologic deficits. PSYCHIATRIC: Anxious affect, fluid speech, good eye contact and appropriate demeanor. Course Course Course Narrative: 08/30/24 11:26 MARCOS Cain: Physician observation continued. Spoke with fiorella Toribio regarding plan of care. She states patient can follow up outpatient and will not require surgery. 08/30/24 17:20 MARCOS Cain: Jovanny Massey from , patient to be discharged to [facility] at 17:30 today. Observation care revealed that patient does not meet medical necessity for hospitalization. Final disposition discussed with patient. The patient completed observation care at 17:30 on 08/30/24. Medications Administered Generic Name Dose Route Start Last Admin Trade Name Freq PRN Reason Stop Dose Admin Aspirin 81 mg 08/30/24 13:30 08/30/24 15:49 Aspirin 81 Mg Tab.Chew PO 81 mg DAILY MICHELLE Administration Losartan Potassium 100 mg 08/30/24 13:30 08/30/24 15:49 Losartan Potassium 50 Mg Tablet PO 100 mg DAILY MICHELLE Administration Protocol Metoprolol Succinate 150 mg 08/30/24 13:30 08/30/24 15:48 Metoprolol Succinate Er 50 Mg Tab.Er.24h PO 150 mg DAILY MICHELLE Administration Protocol Vitamin D 50 mcg 08/30/24 13:30 08/30/24 15:47 Cholecalciferol (Vitamin D3) 25 Mcg Tablet PO 50 mcg DAILY MICHELLE Administration Discontinued Medications Generic Name Dose Route Start Last Admin Trade Name Freq PRN Reason Stop Dose Admin Acetaminophen 650 mg 08/30/24 01:45 08/30/24 02:04 Acetaminophen 325 Mg Tablet PO 08/30/24 01:46 650 mg ONCE ONE Administration Medical Decision Making Medical Decision Making [facility] Narrative: Patient presents today with chief complaint of trauma. Different diagnosis on this patient includes intracranial hemorrhage, skull fracture, neck injury including fracture or spinal cord pathology. Other diagnoses considered would include chest or abdominal trauma as well as long bone fractures. Based on my physical exam, the ordered imaging modalities are indicated. The patient specifically does not show any signs of central cord syndrome as evidenced by equal strength in the upper extremities with normal two-point discrimination. Sensation is not altered. GCS is appropriate. Patient is neurovascularly intact. There are no signs of vascular emergency. No signs of shock. No respiratory distress. Patient was given Tylenol for pain control. finding as oncoming provider pending imaging results and final disposition. I received sign-out from my colleague Dr. Mei CT scan of the head and cervical spine did not show any acute abnormality. X-ray of the forearm shows an acute transverse fractures of the ulna is abnormality in the elbow. Patient's arm was based on splint, long-arm. Patient instructed to follow-up with orthopedics patient believes that she can do not help. Physical therapy and case management consult pending. At this time, patient declines any pain medication. Physical therapy and case management consult pending Physician observation started at 07:00 Differential Diagnosis Differential Diagnoses: The differential diagnosis associated with the presentation includes ( see above) Admission/Observation Consideration of admission/observation: Escalation of care including admission/observation considered Lab Data Labs: Lab Results 08/30/24 Range/Units 08:40 Influenza Type A (PCR) NEGATIVE (Negative) Influenza Type B (PCR) NEGATIVE (Negative) RSV RNA Qual (PCR) NEGATIVE (Negative) SARS-CoV-2 RNA (RT-PCR) NEGATIVE (Negative) Independent Interpretation I performed an independent interpretation of an: Plain X-Ray and CT Scan Radiology Impression Discussion of test interpretation with radiology: I have reviewed the radiologist's reading. Radiologist Impression: No acute intracranial findings. Mild central and cortical involutional changes Old small-vessel mild white matter ischemic changes Osteopenia Multilevel spondylosis Linear lucency with sclerotic margins through the left transverse process of C1 highly likely developmental or congenital unlikely that this represents old or acute fracture. This could be compared to old CT cervical spine imaging if available External Record Review External record reviewed: Inpatient record and Outpatient record Critical Care Time Critical Care Time Critical Care Time: Yes Total Critical Care Time: 45 Attestation: I have personally provided critical care time. Time includes review of lab data, radiology results, discussion with consultants, and monitoring for potential decompensation. Intervention performed as documented. Discharge Plan Discharge Clinical Impression: Fall, Ulnar fracture Patient Disposition: Xfer Inpatient Rehab Fac Transfer Details: [facility] Instructions: Arm Fracture in Adults (DC), Fall Prevention for Older Adults (ED) Additional Instructions: You were evaluated in the emergency department for injuries after a fall. Your x-ray showed a fracture to your right forearm (ulna). You will need to follow-up with orthopedics outpatient for further management of this injury. Prescriptions: No Action losartan 50 mg Tablet 100 mg PO DAILY 30 Days Qty: 60 0RF Protocol: Hold for SBP< HOLD for SBP < : 90 olanzapine 5 mg Tablet 5 mg PO BEDTIME 30 Days Qty: 30 0RF aspirin 81 mg Tablet,Chewable 81 mg PO DAILY 30 Days Qty: 30 0RF ezetimibe 10 mg Tablet 10 mg PO DAILY 30 Days Qty: 30 0RF metoprolol succinate 50 mg tablet extended release 24 hr 150 mg PO DAILY Repatha Syringe 140 mg/mL syringe 140 mg SUBCUT Q2W timolol maleate 0.5 % drops 1 drp ophthalmic (eye) DAILY Rx Instructions: Apply one drop to both eyes once daily. Fish Oil Capsule 1 cap PO QAM cholecalciferol (vitamin D3) [Vitamin D3] 50 mcg (2,000 unit) Tablet 50 mcg PO DAILY duloxetine 20 mg Capsule,Delayed Release(Dr/Ec) 20 mg PO DAILY duloxetine 60 mg Capsule,Delayed Release(Dr/Ec) 60 mg PO DAILY thiamine HCl (vitamin B1) 100 mg Tablet 100 mg PO DAILY Referrals: [facility] [Other] [facility] [Provider Group] Clinical Impression: Ulnar fracture Print Language: Estonian
[2024-08-30] MEDS: Acetaminophen 325 MG TABLET 650 MG PO (02:04)
--- NOTE | 2024-08-30 07:05 | PC.NURSE ---
Pt ambulated to [facility] with walker and staff stand by assist.
--- NOTE | 2024-08-30 08:01 | PC.NURSE ---
Pharmacy to work on med rec when able
[2024-08-30 09:37] LABS: Influenza A PCR NEGATIVE (Negative); Influenza B PCR NEGATIVE (Negative); Resp Syncy Virus RNA Qual PCR NEGATIVE (Negative); SARS COV2 PCR INHOUSE NEGATIVE (Negative)
--- NOTE | 2024-08-30 09:54 | PC.NURSE ---
Seen by physical therapy, asleep at this time with visitor at bedside. Awaiting CM consult.
--- NOTE | 2024-08-30 10:26 | MHC.CM.ED ---
Received case management consult overnight. Patient came to the ER due to a fall. Found to have right ulna fx that will require sling. No surgery indicated. Physical therapy eval completed. Rehab is recommended. Attempted to meet with patient in regards to discharge planning. Patient currently sleeping. Met with patient's son, Jann, in regards to discharge planning. Patient resides at [facility] in the assisted living part of the facility. Patient receives meds twice a day. Otherwise, patient is independent with ADL's. PCP verified. Copy of HCP verified to be on file. Jann reports patient has a minor memory issue but has never been diagnosed with dementia. Patient has not been inpatient in any facility in the past 30 days. Referral to all 3 acute rehab facilities will be sent. [facility] is 1st choice. Continue to monitor for d/c needs.
--- NOTE | 2024-08-30 13:23 | PC.NURSE ---
med rec completed via info provided by the family
--- NOTE | 2024-08-30 14:28 | PC.NURSE ---
med rec complete and I contacted the pharmacy at approx [phone] to verify the med rec. still not done but will continue to check
--- NOTE | 2024-08-30 15:29 | PHA.MEDREC ---
Pharmacy Consult ? Medication Reconciliation Pharmacy has completed the medication reconciliation. Med list obtained from rayne will[facility], per list duolextine changed from 90 to 80 mg,and pt no longer on hctz
[2024-08-30] MEDS: Cholecalciferol (Vitamin D3) 25 MCG TABLET 50 MCG PO (15:47)
[2024-08-30] MEDS: Metoprolol Succinate ER 50 MG TAB.ER.24H 150 MG PO (15:48)
[2024-08-30] MEDS: Losartan Potassium 50 MG TABLET 100 MG PO (15:49)
[2024-08-30] MEDS: Aspirin 81 MG TAB.CHEW PO (15:49)
[2024-08-30] MEDS: Ezetimibe 10 MG TABLET PO (17:22)
[2024-08-30] MEDS: timoloL maleate 0.5 % Oph Sol 5 ML DRBTL 1 DROP EYE-BOTH (17:23)
== END 2024-08-30 18:06 ==
PROVIDERS: Registered Nurse Emergency; Emergency Provider Emergency Medicine; PCP Nurse Practitioner Family
DX: S52.201A Unspecified fracture of shaft of right ulna, initial encounter for closed fracture (principal); W01.198A Fall on same level from slipping, tripping and stumbling with subsequent striking against other object, initial encounter; Y93.89 Activity, other specified; Y92.099 Unspecified place in other non-institutional residence as the place of occurrence of the external cause; Y99.9 Unspecified external cause status; Z03.818 Encounter for observation for suspected exposure to other biological agents ruled out
CPT/HCPCS: 0241U; 29505; 70450; 72125; 73080; 73090; 97161; 99284; 99291

== ENCOUNTER → 2024-08-30 01:45 | Outpatient (BNV) | payer MEDICARE, OTHER, SELFPAY | PROVIDERS: Emergency Provider Emergency Medicine; PCP Internal Medicine; Visit Provider Radiology Diagnostic Radiology | DX: M25.78 Osteophyte, vertebrae (principal); G31.9 Degenerative disease of nervous system, unspecified; M85.821 Other specified disorders of bone density and structure, right upper arm; S52.321A Displaced transverse fracture of shaft of right radius, initial encounter for closed fracture | CPT/HCPCS: 70450; 72125; 73080; 73090 ==

== ENCOUNTER 2024-09-19 19:33 | Inpatient (IN) | payer MEDICARE, OTHER, SELFPAY ==
--- NOTE | ~2024-09-19 | XR_ITS ---
CLINICAL HISTORY: F U Constipation 1 view abdomen Comparison: CT/SR - CT GI BLEED ABD PEL WO/W IVCON - 09/20/24 00:24 EDT Findings: No pneumoperitoneum or pneumatosis. No significant residual fecal material. There is gas throughout the majority of the colon and there are scattered pockets of gas within small bowel. Relative gaseous distention of a segment of small bowel within the left midabdomen no overall findings to suggest an obstructive process. No abnormal calcifications. No acute fractures. IMPRESSION: 1. No significant residual fecal material within the colon. 2. Nonspecific bowel gas pattern without evidence of an obstructive process. This document has been electronically signed by: Pia Zheng MD on 09/24/2024 13:06:57
--- NOTE | ~2024-09-19 | CT_ITS ---
CLINICAL HISTORY: LGIB CT abdomen and pelvis with and without contrast Comparison: None provided Findings: The lung bases are clear. Cholecystectomy. Distended bile ducts may be due to reservoir effect. Common duct at the nata hepatis up to 2.2 cm. No inflammatory changes. The distal pancreatic duct is up to 6 mm. No side branch dilatation or inflammatorychanges. There is mild prominence of the renal collecting systems, right greater than left. No nephrographic delays or abnormal contrast enhancement. Abdominal solid organs otherwise unremarkable. No bowel obstruction, pneumoperitoneum, or pneumatosis. [id number] amount of stool otherwise. Large amount of stool in the lower rectum. Slight perirectal fat stranding. Normal appendix. Uterus and ovaries unremarkable. Distended urinary bladder. Osteopenia. No acute fracture. IMPRESSION: 1. No acute GI bleed. 2. Large amount of stool in the rectum with mild perirectal fat stranding. Possible stercoral colitis. 3. Distended urinary bladder. This may be resulting in reflux with mild prominence of the renal collecting systems bilaterally. 4. Additional findings as above. This document has been electronically signed by: Alfie De La Garza MD on 09/20/2024 02:42:20
[2024-09-19 19:45] VITALS: BP 151/75; PULSE 73; RESP 18; TEMP 36.7; O2SAT 98; BMI 23.4
--- NOTE | 2024-09-19 20:00 | ED.GENADULT ---
HPI - General Adult General Chief complaint: Nausea/Vomiting/Diarrhea Stated complaint: Diarrhea for 3 days/bleeding Time Seen by Provider: 09/19/24 23:03 Source: patient, family and other History of Present Illness ED Provider: Emerita Dia PA-C HPI narrative: 84-year-old female with a history of significant anxiety, failure to thrive, hypertension, who presents with rectal bleeding x3 days. Patient in the daughter indicate that she has been having significant blood, oozing from the rectum. The patient states she is having loose stool. Denies abdominal pain, nausea vomiting or fever. She states her rectum is extremely painful, but denies the presence of hemorrhoids. Related Data Home Medications ?Medication ?Instructions ?Recorded ?Confirmed cholecalciferol (vitamin D3) 50 50 mcg PO DAILY 08/30/24 09/20/24 mcg (2,000 unit) tablet (Vitamin D3) evolocumab 140 mg/mL subcutaneous 140 mg subcut Q2W 08/30/24 09/20/24 syringe (Repatha Syringe) metoprolol succinate 50 mg 150 mg PO DAILY 08/30/24 09/20/24 tablet,extended release 24 hr thiamine HCl (vitamin B1) 100 mg 100 mg PO DAILY 08/30/24 09/20/24 tablet timolol maleate 0.5 % eye drops 1 drp ophthalmic (eye) DAILY 08/30/24 09/20/24 amlodipine 2.5 mg tablet 2.5 mg PO DAILY 09/20/24 09/20/24 duloxetine 30 mg capsule,delayed 90 mg PO DAILY 09/20/24 09/20/24 release sprinkle fluticasone propionate 50 2 spray intranasal DAILY PRN 09/20/24 09/20/24 mcg/actuation nasal Congestion spray,suspension losartan 100 1 tab PO DAILY 09/20/24 09/20/24 mg-hydrochlorothiazide 12.5 mg tablet omega-3 fatty acids 1,000 mg 1,000 mg PO DAILY 09/20/24 09/20/24 capsule Previous Rx's ?Medication ?Instructions ?Recorded aspirin 81 mg chewable tablet 81 mg PO DAILY 30 days #30 tabs 03/18/21 ezetimibe 10 mg tablet 10 mg PO DAILY 30 days #30 tabs 03/18/21 olanzapine 5 mg tablet 5 mg PO BEDTIME 30 days #30 tabs 03/18/21 Allergies Allergy/AdvReac Type Severity Reaction Status Date / Time Morahqg-OEB-[id number] Reductase Allergy Unknown Verified 09/19/24 19:49 Inhibitor melons Allergy Unknown throat Uncoded 09/19/24 19:49 sweling Review of Systems Review of Systems: Yes all other systems are reviewed and are negative Constitutional: Constitutional: Denies fatigue and Denies fever(s) Cardiovascular: Cardiovascular: Denies chest pain and Denies dyspnea Respiratory: Respiratory: Denies dyspnea Gastrointestinal: Gastrointestinal: Reports abdominal pain, Reports diarrhea, Denies nausea and Denies vomiting Endocrine: Endocrine: Denies fatigue PMFSH Past Medical History Attestation statement: The following information was validated with the patient. Medical History Myocardial infarct, old HTN (hypertension) Surgical History H/O heart artery stent Social History Social History Household Members: Other Household Members Other:: [facility] Housing: Other Do you presently have visiting nurse or other home services: Yes Alcohol intake: never Patient Tobacco Use Status: Former Tobacco user Advance Directives Date on File: 08/04/23 service: No Sexual orientation: Straight/Heterosexual Physical Exam ED Vital Signs: Vital Signs - 24 hr 09/19/24 19:45 09/20/24 00:52 09/20/24 03:32 Temperature 98.0 F 98.1 F Pulse Rate 73 74 78 Respiratory Rate 18 18 17 Blood Pressure 151/75 H 167/71 H 173/86 H Pulse Oximetry 98 94 96 Oxygen Delivery Method Room Air Room Air Room Air 09/20/24 03:49 Temperature Pulse Rate 74 Respiratory Rate 19 Blood Pressure 140/65 H Pulse Oximetry 98 Oxygen Delivery Method Room Air BMI result Body Mass Index 23.4 Const Other: Alert Orientation/consciousness: oriented to person Resp Effort & Inspection: normal respiratory effort Cardio Other: Normal peripheral perfusion GI Other: Dried maroon-colored blood surrounding the rectum, guaiac positive Skin Other: Warm dry no rash Neuro General: oriented to person Psych Other: Anxious, flat affect Course Course Course Narrative: RmE: 83-year-old female presents to ED for diarrhea for 3 days with blood in his stool. Patient was hospitalized in hospital a couple weeks ago for broken arm and just came from rehab. Abdomen benign. Labs stool sample UA ordered. Consultations Consultation #1: per Long ... She states this is not a surgical issue this is a medical admit Time: 03:20 Medications Administered Generic Name Dose Route Start Last Admin Trade Name Freq PRN Reason Stop Dose Admin Amlodipine Besylate 2.5 mg 09/21/24 09:00 09/23/24 08:32 Amlodipine Besylate 2.5 Mg Tablet PO 2.5 mg DAILY MICHELLE Administration Protocol Aspirin 81 mg 09/23/24 09:00 09/23/24 08:33 Aspirin 81 Mg Tab.Chew PO 81 mg DAILY MICHELLE Administration Duloxetine HCl 90 mg 09/20/24 21:00 09/23/24 21:03 Duloxetine Hcl 30 Mg Capsule.Dr PO 90 mg BEDTIME MICHELLE Administration Hydromorphone HCl 0.5 mg 09/20/24 13:37 09/23/24 18:12 Hydromorphone Hcl 0.5 Mg/0.5 Ml Syringe IVPUSH 0.5 mg Q6H PRN Administration Breakthrough Pain Protocol Metoprolol Tartrate 12.5 mg 09/22/24 21:00 09/23/24 21:03 Metoprolol Tartrate 12.5 Mg Halftab PO 12.5 mg BID MICHELLE Administration Protocol Morphine Sulfate 1 mg 09/20/24 13:37 09/20/24 14:09 Morphine Sulfate 2 Mg/Ml Cartridge IVPUSH 1 mg Q6H PRN Administration Pain, Severe (Pain Scale 7-10) Protocol Olanzapine 5 mg 09/20/24 21:00 09/23/24 21:03 Olanzapine 5 Mg Tablet PO 5 mg BEDTIME MICHELLE Administration Polyethylene Glycol 17 gm 09/22/24 21:00 09/23/24 21:03 Polyethylene Glycol 3350 17 Gm Powd.Pack PO 17 gm BID MICHELLE Administration Sodium Chloride 3 ml 09/20/24 08:00 09/23/24 21:08 0.9 % Sodium Chloride Flush 3 Ml Syringe IVFLUSH 3 ml QSHIFT MICHELLE Administration Thiamine HCl 100 mg 09/20/24 17:15 09/23/24 08:34 Thiamine Hcl 100 Mg Tablet PO 100 mg DAILY MICHELLE Administration Timolol Maleate 1 drop 09/20/24 17:15 09/23/24 08:33 Timolol Maleate 0.5 % Oph Cathryn 5 Ml Drbtl EYE-BOTH 1 drop DAILY MICHELLE Administration Vitamin D 50 mcg 09/21/24 09:00 09/23/24 08:32 Cholecalciferol (Vitamin D3) 25 Mcg Tablet PO 50 mcg DAILY MICHELLE Administration Discontinued Medications Generic Name Dose Route Start Last Admin Trade Name Freq PRN Reason Stop Dose Admin Ceftriaxone Sodium 2 gm 09/20/24 03:43 09/20/24 04:35 Ceftriaxone Sodium 2 Gm Vial IVPUSH 09/20/24 03:44 2 gm ONCE ONE Administration Ceftriaxone Sodium 1 gm 09/21/24 06:00 09/22/24 05:58 Ceftriaxone Sodium 1 Gm Vial IVPUSH 1 gm Q24H MICHELLE Administration Glycerin 1 supp 09/20/24 17:00 09/22/24 17:21 Glycerin Adult Supp.Rect KS 09/22/24 20:00 Not Given Q12H MICHELLE Hydralazine HCl 5 mg 09/20/24 09:53 09/20/24 21:14 Hydralazine Hcl 20 Mg/Ml Vial IVPUSH 5 mg Q6H PRN Administration hypertension breakthrogh Protocol Acetaminophen 1,000 mg in 100 mls @ 400 mls/hr 09/20/24 00:11 09/20/24 01:15 Ofirmev IV 09/20/24 00:25 Infused ONCE ONE Infusion Metronidazole 500 mg in 100 mls @ 100 mls/hr 09/20/24 03:43 09/20/24 06:30 Flagyl IV 09/20/24 04:42 Infused ONCE ONE Infusion Lactated Ringer's 1,000 mls @ 150 mls/hr 09/20/24 04:15 09/20/24 13:20 Lr IVCONT 09/20/24 10:54 Infused .Q6H40M MICHELLE Infusion Metronidazole 500 mg in 100 mls @ 100 mls/hr 09/20/24 12:00 09/22/24 05:23 Flagyl IV Not Given Q8H MICHELLE Acetaminophen 1,000 mg in 100 mls @ 400 mls/hr 09/20/24 12:30 09/22/24 05:55 Ofirmev IV 09/22/24 04:44 Not Given Q8H MICHELLE Sodium Chloride 1,000 mls @ 100 mls/hr 09/20/24 17:30 09/23/24 04:05 Ns IVCONT Infused .Q10H MICHELLE Infusion Potassium Chloride 10 meq in 100 mls @ 100 mls/hr 09/21/24 12:15 09/21/24 20:31 Potassium Chloride/H20 IV 09/21/24 16:14 Infused Q1H MICHELLE Infusion Magnesium Sulfate/Dextrose 1 gm in 100 mls @ 100 mls/hr 09/21/24 12:13 09/21/24 13:50 Magnesium Sulfate/D5w IV 09/21/24 13:12 Infused ONCE ONE Infusion Metronidazole 500 mg in 100 mls @ 100 mls/hr 09/22/24 06:00 09/22/24 16:38 Flagyl IV Infused Q8H MICHELLE Infusion Potassium Chloride 10 meq in 100 mls @ 100 mls/hr 09/23/24 08:30 09/23/24 15:37 Potassium Chloride/H20 IV 09/23/24 12:29 Not Given Q1H MICHELLE Iohexol 80 ml 09/20/24 00:34 09/20/24 00:34 Iohexol 350 Mg/Ml 100 Ml Infus..Btl IV 09/20/24 00:35 80 ml ONCE ONE Administration Lactulose 200 gm 09/21/24 18:45 09/22/24 12:59 Lactulose 320 Gm/480 Ml Solution KS Not Given Q6H MICHELLE Metoprolol Tartrate 2.5 mg 09/20/24 17:03 09/22/24 00:46 Metoprolol Tartrate 5 Mg/5 Ml Vial IVPUSH 2.5 mg Q6H PRN Administration Heart Rate >100 Protocol Midazolam HCl 2 mg 09/20/24 03:14 09/20/24 03:34 Midazolam Hcl 2 Mg/2 Ml Vial IVPUSH 09/20/24 03:15 2 mg ONCE ONE Administration Pantoprazole Sodium 80 mg 09/20/24 04:11 09/20/24 04:41 Pantoprazole Sodium 40 Mg/10 Ml Vial IVPUSH 09/20/24 04:12 80 mg ONCE ONE Administration Potassium Chloride 40 meq 09/21/24 12:15 09/21/24 14:20 Potassium Chloride Er 20 Meq Tab.Er.Prt PO 09/21/24 12:16 40 meq DAILY MICHELLE Administration Potassium Chloride 40 meq 09/23/24 08:30 09/23/24 11:25 Potassium Chloride Packet 20 Meq Packet PO 09/23/24 10:31 40 meq Q2H MICHELLE Administration Potassium Chloride 40 meq 09/23/24 10:45 09/23/24 11:01 Potassium Chloride Packet 20 Meq Packet PO 09/23/24 12:46 Not Given Q2H MICHELLE Medical Decision Making Medical Decision Making MDM Narrative: 84-year-old female with a history of significant anxiety, failure to thrive, hypertension, who presents with rectal bleeding x3 days. Patient in the daughter indicate that she has been having significant blood, oozing from the rectum. The patient states she is having loose stool. Denies abdominal pain, nausea vomiting or fever. She states her rectum is extremely painful, but denies the presence of hemorrhoids. Problem: Age History: Per patient and her daughter I have considered the following differential diagnoses: Lower GI bleed, hemorrhoids, diverticulosis, polyps, diverticulitis Plan: The patient clearly is bleeding from the rectum, I do not see any hemorrhoids on the exterior, given how uncomfortable she is, I am not going to perform a rectal exam at this time. We will be obtaining a CT scan of the abdomen. She is only requesting Tylenol for her discomfort, we will give it IV. Screening labs were already obtained from triage, we still need a urinalysis. I have independently reviewed the following tests: Labs: Leukocytosis, not anemic, left shift noted, hyponatremia, no additional electrolyte abnormality, urine is infected CT abdomen and pelvis:IMPRESSION: 1. No acute GI bleed. 2. Large amount of stool in the rectum with mild perirectal fat stranding. Possible stercoral colitis. 3. Distended urinary bladder. This may be resulting in reflux with mild prominence of the renal collecting systems bilaterally. 4. Additional findings as above. Lab Data 09/23/24 06:58 09/23/24 11:29 Labs: Lab Results 09/19/24 09/19/24 09/20/24 Range/Units 20:45 23:59 00:55 WBC 12.0 H (4.8-10.8) X10*3/uL RBC 3.96 L D (4.20-5.50) X10*6/uL Hgb 12.3 D (12.0-16.0) g/dl Hct 35.0 L (37.0-47.0) % MCV 88.4 (80.0-98.0) fL MCH 31.1 (27.0-33.0) pg MCHC 35.1 H (31.0-35.0) g/dl RDW 13.5 (11.0-16.0) % Plt Count 476 H (160-400) X10*3/uL MPV 8.2 L (9.4-12.3) fL Immature Gran % (Auto) 0.3 (0.0-0.4) % Neut % (Auto) 73.6 H (45-73) % Lymph % (Auto) 17.3 L (20-40) % [place] % (Auto) 7.3 (2-11) % Eos % (Auto) 1.2 (0-4) % Baso % (Auto) 0.3 (0-2) % Lymph # (Auto) 2.1 (1.2-4.9) X10*3/uL [place] # (Auto) 0.9 (0.1-1.2) X10*3/uL Eos # (Auto) 0.1 (0.0-0.4) X10*3/uL Baso # (Auto) 0.0 (0.0-0.2) X10*3/uL Abs Immat Gran (auto) 0.04 H (0.00-0.03) X10*3/uL Absolute Neuts (auto) 8.9 H (2.0-8.3) x10*3/uL Absolute Nucleated RBC 0.000 (0.0-0.012) X10*3/uL Nucleated RBC % (auto) 0.0 (0.0-0.2) /100WBC Sodium 128 L (135-145) mmol/L Potassium 3.7 (3.3-5.1) mmol/L Chloride 97 (96-108) mmol/L Carbon Dioxide 24 (22-29) mmol/L Anion Gap 11 L (12-20) BUN 8 L (9-16) mg/dL Creatinine 0.64 (0.5-1.4) mg/dL Estim Creat Clear Calc 50.2 Estimated GFR > 60 Random Glucose 117 H (60-115) mg/dL Calcium 8.7 D (8.4-10.2) mg/dL Total Bilirubin 0.2 (0.0-1.0) mg/dL AST 24 (5-31) U/L ALT 51 H (0-31) U/L Alkaline Phosphatase 248 H (39-117) U/L Total Protein 6.8 (6.5-8.0) g/dL Albumin 4.3 (3.5-5.0) g/dL Lipase 36 (8-78) U/L Urine Color Yellow Urine Appearance Cloudy Urine pH 7.0 (5.0-9.0) Ur Specific [place] 1.015 (1.005-1.025) Urine Protein Trace (Neg-Trace) mg/dL Urine Glucose (UA) Negative (Negative) mg/dL Urine Ketones Negative (Negative) mg/dL Urine Blood Large (3+) H (Negative) Urine Nitrite Negative (Negative) Ur Leukocyte Esterase Large (3+) H (Negative) Urine RBC >20 H (0-2) /HPF Urine WBC >50 H (0-5) /HPF Ur Squamous Epith Cells 6-10 (0-2) /HPF Urine Bacteria 4+ (None Seen) Hyaline Casts 0-2 (0-2) /LPF Stool Occult Blood POSITIVE (NEGATIVE) Discharge Plan Discharge Clinical Impression: Stercoral colitis, Urinary tract infection, Constipation Patient Disposition: Admitted As Inpatient Interventions: Admission Worksheet (ED) Last Done: 09/20/24 19:17 Discharge Date/Time: 09/20/24 19:53
[2024-09-19 20:50] LABS: MANUAL DIFF FLAG NO
[2024-09-19 20:51] LABS: Hematocrit 35.0 % (37.0-47.0); Hemoglobin 12.3 g/dl (12.0-16.0); Imm Gran Abs Auto 0.04 X10*3/uL (0.00-0.03); Imm Gran Pct Auto 0.3 % (0.0-0.4); Lymphocytes Absolute Auto 2.1 X10*3/uL (1.2-4.9); Mean Corpuscular HGB Conc 35.1 g/dl (31.0-35.0); Mean Corpuscular Hemoglobin 31.1 pg (27.0-33.0); Mean Corpuscular Volume 88.4 fL (80.0-98.0); NRBC Abs Auto 0.000 X10*3/uL (0.0-0.012); NRBC Pct Auto 0.0 /100WBC (0.0-0.2); Platelet Count 476 X10*3/uL (160-400); Red Blood Count 3.96 X10*6/uL (4.20-5.50); White Blood Count 12.0 X10*3/uL (4.8-10.8)
[2024-09-19 21:08] LABS: Alanine Aminotransferase 51 U/L (0-31); Albumin Level 4.3 g/dL (3.5-5.0); Alkaline Phosphatase 248 U/L (39-117); Anion Gap 11 (12-20); Aspartate Amino Transferase 24 U/L (5-31); Blood Urea Nitrogen 8 mg/dL (9-16); Calcium 8.7 mg/dL (8.4-10.2); Carbon Dioxide 24 mmol/L (22-29); Chloride 97 mmol/L (96-108); Creatinine Clr Calc Pharmacy 50.2; Estimated Glomerular Filt Rate > 60; Lipase 36 U/L (8-78); Potassium 3.7 mmol/L (3.3-5.1); Sodium 128 mmol/L (135-145); Total Protein 6.8 g/dL (6.5-8.0)
[2024-09-20] VITALS (11 sets, daily range): BP systolic 140–186; BP diastolic 55–86; PULSE 73–97; RESP 14–23; TEMP 36.6–37.4; O2SAT 93–99; BMI 25.3
[2024-09-20 00:28] LABS: OBS Int Ctl Valid YES; OBS1 POSITIVE (NEGATIVE)
[2024-09-20] MEDS: iohexoL 350 MG/ML 100 ML INFUS..BTL 80 ML IV (00:34)
[2024-09-20 01:03] LABS: Appearance Urine Cloudy; Glucose Urine UA Negative (Negative); PH 7.0 (5.0-9.0); Specific Gravity - Urine 1.015 (1.005-1.025); UMIC TRIGGER UACC YES
[2024-09-20 02:07] LABS: UACC Culture Trigger YES
--- NOTE | 2024-09-20 03:58 | PC.NURSE ---
Pt straight cathed at this time per sterile technique. 1000 ml clear yellow urine returned. BP stable
--- NOTE | 2024-09-20 04:13 | PM.IMHP ---
History of Present Illness Date of Service: 09/20/24 Chief Complaint: Blood in stool This is a 84-year-old female with pertinent history of CAD status post stent, hypertension, mixed hyperlipidemia, mood disorder who presents to the emergency department for bright red blood per rectum. Patient states her symptoms started 3 days prior to presentation. She started having blood mixed with loose stools but subsequently 24 hours prior to presentation had 4 episodes of bright red blood per rectum. Patient states the episode were painful and associated with generalized abdominal discomfort. No nausea or vomiting. No fever or chills. Endorses increased urinary frequency and urgency. No chest pain, palpitations, shortness of breath. Of note, patient was seen in the ER on 08/30/2024 due to mechanical fall. Imaging showed acute transverse fracture of the ulna and patient was discharged to rehab facility. In the emergency department, patient was found to have leukocytosis 12 and stool occult blood positive. Urine concerning for UTI. Review of Systems Constitutional: Constitutional: Reports fatigue, Reports malaise and Reports weakness Cardiovascular: Cardiovascular: Reports no additional cardiovascular complaints Respiratory: Respiratory: Reports no additional respiratory complaints Gastrointestinal: Gastrointestinal: Reports abdominal pain, Reports hematochezia and Reports diarrhea Genitourinary: Genitourinary: Reports urinary urgency Neurologic: Reports weakness Endocrine: Endocrine: Reports fatigue [facility] Medical History Myocardial infarct, old HTN (hypertension) Pertinent family history: No family history of early CAD Surgical History H/O heart artery stent Social History Household Members: Family Housing: House Do you presently have visiting nurse or other home services: No Alcohol intake: never Patient Tobacco Use Status: Never used Tobacco Advance Directives: Yes Advance Directives on File: Yes Advance Directives Date on File: 08/04/23 service: No Sexual orientation: Straight/Heterosexual Meds Allergies Allergy/AdvReac Type Severity Reaction Status Date / Time Ruwlasb-UUE-UvD Reductase Allergy Unknown Verified 09/19/24 19:49 Inhibitor melons Allergy Unknown throat Uncoded 09/19/24 19:49 sweling Active Medications: Current Medications Metronidazole (Flagyl) 500 mg in 100 mls @ 100 mls/hr IV ONCE ONE Stop: 09/20/24 04:42 Lactated Ringer's (Lr) 1,000 mls @ 150 mls/hr IVCONT .Q6H40M MICHELLE Stop: 09/20/24 10:54 Home Medications ?Medication ?Instructions ?Recorded ?Confirmed ?Last Taken ?Type cholecalciferol (vitamin D3) 50 50 mcg PO DAILY 08/30/24 08/30/24 08/29/24 History mcg (2,000 unit) tablet (Vitamin D3) duloxetine 20 mg capsule,delayed 20 mg PO DAILY 08/30/24 08/30/24 Unknown History release duloxetine 60 mg capsule,delayed 60 mg PO DAILY 08/30/24 08/30/24 Unknown History release evolocumab 140 mg/mL subcutaneous 140 mg subcut Q2W 08/30/24 08/30/24 08/17/24 History syringe (Repatha Syringe) metoprolol succinate 50 mg 150 mg PO DAILY 08/30/24 08/30/24 08/29/24 History tablet,extended release 24 hr omega-3 fatty acids 1 cap PO QAM 08/30/24 08/30/24 08/29/24 History thiamine HCl (vitamin B1) 100 mg 100 mg PO DAILY 08/30/24 08/30/24 Unknown History tablet timolol maleate 0.5 % eye drops 1 drp ophthalmic (eye) DAILY 08/30/24 08/30/24 08/29/24 History Physical Exam Vital Signs and Narrative: Vital Signs: Last Vital Signs Temp 98.1 F 09/20/24 00:52 Pulse 74 09/20/24 03:49 Resp 19 09/20/24 03:49 BP 140/65 H 09/20/24 03:49 Pulse Ox 98 09/20/24 03:49 O2 Del Method Room Air 09/20/24 03:49 BMI result Body Mass Index 23.4 Elderly female lying in bed in no distress Neck supple, no JVD Regular rate and rhythm, S1-S2 heard Regular breath sounds bilaterally, no wheezing or crackles appreciated Abdomen soft nontender, no guarding, no rigidity Patient is awake, alert and oriented x3 n ; no focal motor deficit Psych: Normal mood Right forearm in Mao wrap Results Labs 09/19/24 20:45 09/19/24 20:45 Labs: Laboratory Results - last 24 hr 09/19/24 09/19/24 09/20/24 20:45 23:59 00:55 MCV 88.4 MCH 31.1 MCHC 35.1 H RDW 13.5 Plt Count 476 H MPV 8.2 L Immature Gran % (Auto) 0.3 Neut % (Auto) 73.6 H Lymph % (Auto) 17.3 L [place] % (Auto) 7.3 Eos % (Auto) 1.2 Baso % (Auto) 0.3 Lymph # (Auto) 2.1 [place] # (Auto) 0.9 Eos # (Auto) 0.1 Baso # (Auto) 0.0 Abs Immat Gran (auto) 0.04 H Absolute Neuts (auto) 8.9 H Absolute Nucleated RBC 0.000 Nucleated RBC % (auto) 0.0 Anion Gap 11 L Estim Creat Clear Calc 50.2 Estimated GFR > 60 Random Glucose 117 H Calcium 8.7 D Total Bilirubin 0.2 AST 24 ALT 51 H Alkaline Phosphatase 248 H Total Protein 6.8 Albumin 4.3 Lipase 36 Urine Color Yellow Urine Appearance Cloudy Urine pH 7.0 Ur Specific [place] 1.015 Urine Protein Trace Urine Glucose (UA) Negative Urine Ketones Negative Urine Blood Large (3+) H Urine Nitrite Negative Ur Leukocyte Esterase Large (3+) H Urine RBC >20 H Urine WBC >50 H Ur Squamous Epith Cells 6-10 Urine Bacteria 4+ Hyaline Casts 0-2 Stool Occult Blood POSITIVE Assessment and Plan (1) Acute GI bleeding: Status: Acute Plan This is a 84-year-old female with pertinent history of CAD status post stent, hypertension, mixed hyperlipidemia, mood disorder who presents to the emergency department for evaluation of bright red blood per rectum. #. Acute GI bleed: Will admit patient with cardiac monitoring. Closely monitor H&H. Consulted Gastroenterology, appreciate assistance. Will keep patient NPO. Imaging with stercoral colitis. GI panel pending. Hold antiplatelet agent #. Acute UTI: On empiric IV antibiotics. Follow urine culture #. CAD status post stent: Hold aspirin in the setting of GI bleed #. Mood disorder: Resume home mood stabilizers once able to take p.o. Med rec pending DVT prophylaxis: Mechanical Full code. Discussed with patient and daughter at bedside Admit as inpatient and will require two night minimum hospital stay for close hemodynamic monitoring (as above), which is not possible in a lesser acute setting. Specialist consult pending Quality Stroke Does the patient have a stroke diagnosis?: No VTE Prior VTE?: No VTE Risk Level:: Medical - moderate - high VTE Device Contraindication: N/A - Device Ordered VTE Drug Contraindication: Treatment Not Indicated
[2024-09-20 04:30] LABS: Hematocrit 34.3 % (37.0-47.0); Hemoglobin 12.1 g/dl (12.0-16.0); Mean Corpuscular HGB Conc 35.3 g/dl (31.0-35.0); Mean Corpuscular Hemoglobin 30.9 pg (27.0-33.0); Mean Corpuscular Volume 87.5 fL (80.0-98.0); NRBC Abs Auto 0.000 X10*3/uL (0.0-0.012); NRBC Pct Auto 0.0 /100WBC (0.0-0.2); Platelet Count 477 X10*3/uL (160-400); Red Blood Count 3.92 X10*6/uL (4.20-5.50); White Blood Count 8.6 X10*3/uL (4.8-10.8)
[2024-09-20 04:43] LABS: Anion Gap 13 (12-20); Blood Urea Nitrogen 6 mg/dL (9-16); Calcium 8.5 mg/dL (8.4-10.2); Carbon Dioxide 24 mmol/L (22-29); Chloride 98 mmol/L (96-108); Creatinine Clr Calc Pharmacy 56.4; Estimated Glomerular Filt Rate > 60; Potassium 3.3 mmol/L (3.3-5.1); Sodium 132 mmol/L (135-145)
[2024-09-20] MEDS: Lactated Ringers 1,000 ML 150 ML IVCONT (04:47)
[2024-09-20] MEDS: metroNIDAZOLE/NS 500 MG/100 ML PIGGYBACK 100 MG IV ×3 (04:48→23:36)
--- NOTE | 2024-09-20 07:38 | PC.NURSE ---
This RN resumed care of pt at 0700. She was resting in bed, pt transitioned to hospital bed by day staff and changed over into hospital gown, pt stated she wanted to try and sit on the commode, 1-2 staff assist to the commode at this time. Pt had small amount of stool but it was not enough for a sample at this time. Pt placed in hospital bed
--- NOTE | 2024-09-20 07:56 | P.PNIM_ITS ---
Subjective Subjective Date of Service: 09/20/24 Interval History: Patient is hemodynamically stable Patient continues to have significant tenesmus Patient continues to endorse severe left lower quadrant abdominal pain Review of Systems Review of Systems: Yes all other systems are reviewed and are negative Gastrointestinal Gastrointestinal: Reports abdominal pain, Reports bloating, Reports change in bowel habits, Reports tenesmus, Reports change in stool character and Reports constipation Neurologic Neurologic: Reports confusion Psychiatric Psychiatric: Reports confusion Physical Exam 2 Vital Signs: Vital Signs: Last Vital Signs Temp 98.9 F 09/20/24 04:35 Pulse 73 09/20/24 04:35 Resp 16 09/20/24 04:35 BP 144/55 H 09/20/24 04:35 Pulse Ox 99 09/20/24 04:35 O2 Del Method Nasal Cannula 09/20/24 04:35 O2 Flow Rate 2 09/20/24 04:35 BMI result Body Mass Index 23.4 Const: General: no acute distress, anxious, confusion and tired appearing O rientation/consciousness: confusion Cardio: Rate: regular rate Rhythm: regular rhythm GI: Palpation (GI): Soft to palpation and Tenderness to palpation present (GI) in the epigastrum and in the LLQ Neuro: General: confusion Psych: Appearance: well kempt Affect: Sad affect present, Anxious affect present and Irritable affect present Attitude: Guarded attititude/behavior present Insight: Limited insight present (Psych) Objective Data Active Medications Acetaminophen (Acetaminophen 325 Mg Tablet) 650 mg PO Q6H PRN PRN Reason: Pain, Mild 1-3,fever,headache Calcium Carbonate (Calcium Carbonate 750 Mg Tab.Chew) 750 mg PO Q4H PRN PRN Reason: Heartburn Ceftriaxone Sodium (Ceftriaxone Sodium 1 Gm Vial) 1 gm IVPUSH Q24H [facility] Lactated Ringer's (Lr) 1,000 mls @ 150 mls/hr IVCONT .Q6H40M [facility] Stop: 09/20/24 10:54 Last Admin: 09/20/24 04:47 Dose: 150 mls/hr Documented By: MOHSEN Metronidazole (Flagyl) 500 mg in 100 mls @ 100 mls/hr IV Q8H [facility] Magnesium Hydroxide (Milk Of Magnesia 30 Ml Oral.Susp) 30 ml PO DAILY PRN PRN Reason: Constipation Melatonin (Melatonin 3 Mg Tablet) 6 mg PO BEDTIME PRN PRN Reason: Insomnia Ondansetron HCl (Ondansetron Hcl 4 Mg/2 Ml Vial) 4 mg IVPUSH Q8H PRN PRN Reason: Nausea and Vomiting Sodium Chloride (0.9 % Sodium Chloride Flush 3 Ml Syringe) 3 ml IVFLUSH QSHIFT [facility] Labs 09/20/24 04:24 09/20/24 04:24 Labs: Laboratory Results - last 24 hr 09/19/24 09/19/24 09/20/24 20:45 23:59 00:55 MCV 88.4 MCH 31.1 MCHC 35.1 H RDW 13.5 Plt Count 476 H MPV 8.2 L Immature Gran % (Auto) 0.3 Neut % (Auto) 73.6 H Lymph % (Auto) 17.3 L [place] % (Auto) 7.3 Eos % (Auto) 1.2 Baso % (Auto) 0.3 Lymph # (Auto) 2.1 [place] # (Auto) 0.9 Eos # (Auto) 0.1 Baso # (Auto) 0.0 Abs Immat Gran (auto) 0.04 H Absolute Neuts (auto) 8.9 H Absolute Nucleated RBC 0.000 Nucleated RBC % (auto) 0.0 Anion Gap 11 L Estim Creat Clear Calc 50.2 Estimated GFR > 60 Random Glucose 117 H Lactic Acid Calcium 8.7 D Total Bilirubin 0.2 AST 24 ALT 51 H Alkaline Phosphatase 248 H Total Protein 6.8 Albumin 4.3 Lipase 36 Urine Color Yellow Urine Appearance Cloudy Urine pH 7.0 Ur Specific [place] 1.015 Urine Protein Trace Urine Glucose (UA) Negative Urine Ketones Negative Urine Blood Large (3+) H Urine Nitrite Negative Ur Leukocyte Esterase Large (3+) H Urine RBC >20 H Urine WBC >50 H Ur Squamous Epith Cells 6-10 Urine Bacteria 4+ Hyaline Casts 0-2 Stool Occult Blood POSITIVE 09/20/24 04:24 MCV 87.5 MCH 30.9 MCHC 35.3 H RDW 13.3 Plt Count 477 H MPV 8.2 L Immature Gran % (Auto) Neut % (Auto) Lymph % (Auto) [place] % (Auto) Eos % (Auto) Baso % (Auto) Lymph # (Auto) [place] # (Auto) Eos # (Auto) Baso # (Auto) Abs Immat Gran (auto) Absolute Neuts (auto) Absolute Nucleated RBC 0.000 Nucleated RBC % (auto) 0.0 Anion Gap 13 Estim Creat Clear Calc 56.4 Estimated GFR > 60 Random Glucose 123 H Lactic Acid 1.1 Calcium 8.5 Total Bilirubin AST ALT Alkaline Phosphatase Total Protein Albumin Lipase Urine Color Urine Appearance Urine pH Ur Specific [place] Urine Protein Urine Glucose (UA) Urine Ketones Urine Blood Urine Nitrite Ur Leukocyte Esterase Urine RBC Urine WBC Ur Squamous Epith Cells Urine Bacteria Hyaline Casts Stool Occult Blood Assessment and Plan (1) Stercoral colitis: Status: Acute (2) Constipation: Status: Acute (3) Rectal bleeding: Status: Acute Plan 84-year-old female with pertinent history of CAD s/p stent, hypertension, mixed hyperlipidemia, severe anxietydisorder who presents to the emergency department for bright red blood per rectum 2/2 Stercoral colitis. Patient had a recent possible mechanical fall a month ago and sustained a transverse right forearm fracture which is in a cast. She was transferred to acute rehab. Patient's daughter who is the main historian reports that she has been having no bowel movement since last Wednesday and continued to have worsening abdominal pain and bloating. Imaging-CTA/P showed severe stool burden with medium sized stool ball in the rectum with associated rectal wall thickening. Patient H&H is stable since admission thankfully. Patient has not had another bowel movement, but RN reports some blood on wiping. Patient was seen by GI and suggested tap water enema and glycerin suppositories, and p.o. bowel meds are contraindicated given significant stool burden and risk for bowel perforation. Severe abdominal pain and distention secondary to chronic constipation Tenesmus secondary to constipation Constipation likely secondary to physical deconditioning in the setting of rehab/adult failure to thrive GI consulted Patient to undergo Fleet enema p.r.n. At least now it has been ordered as b.i.d. and will await any bowel movement Glycerin suppositories p.r.n. P.o. bowel meds contraindicated given severity of bowel stool burden UA suggestive of UTI Likely her chronic constipation has resulted in her UTI Currently treating with ceftriaxone and metronidazole We will follow sensitivities and deescalate accordingly CAD s/p stent HTN HLD Patient's antihypertensive medications were held at the time of examination/admission due to the risk of brisk GI bleed/GI intra op management Patient although appears to be hemodynamically stable, given her 10 units multiple medical comorbidities, risk of brisk GI bleed, and hemodynamic collapse, we will continue to hold antihypertensive medications We will treat with hydralazine p.r.n. and Toprol IV p.r.n. and continue to hold p.o. meds given half-life and risk of hemodynamic collapse Please administer hydralazine 5 IV p.r.n. q.6 as his BP continues to be greater than 180 Please administer Toprol IV if heart rate greater than 100 Hold home aspirin in the setting of GI bleed Severe Anxiety disorder Patient appeared to be very anxious Initially her p.o. meds were held at the time of admission due to concern of strict NPO We will challenge her with p.o. meds and we will advise her to take clear liquid diet DVT with SCD boots Total time managing care of this patient today: 35 minutes. Quality Stroke Does the patient have a stroke diagnosis?: No VTE Prior VTE?: No VTE Risk Level:: Medical - moderate - high VTE Device Contraindication: N/A - Device Ordered VTE Drug Contraindication: Treatment Not Indicated
--- NOTE | 2024-09-20 08:11 | PC.NURSE ---
Provider Savi WORKMAN made aware of pt morning BP of 176/75, pt remains no complaints of CP/SOB/BROCK, pt is still NPO, medications on hold as well, pharmacy currently doing med rec. no new orders at this time
--- NOTE | 2024-09-20 09:26 | MHC.CM.PN ---
CM met with Patient at bedside, in the ED, and addressed IMM with her, providing Patient with the original and a copy will be placed on the chart. Patient was recently at [facility] s/p a fall and (R) arm fracture; she lives alone at the [facility] in [place] and her goal is to return there at time of dc. CM has initiated and will follow for dc planning. PCP/[employer] is Krystle Christine and HCP is Daughter/Val. Daughter/Jenny will transport to home at time of dc. Patient typically uses a walker but is learning to use a cane, since her arm fracture.
--- NOTE | 2024-09-20 10:58 | PC.NURSE ---
This RN informed MD that pt is continuing to have small amounts of soft stool oozing out, pt having increased rectal pain. Awaiting further orders at this time.
--- NOTE | 2024-09-20 12:11 | PHA.MEDREC ---
Addendum entered by Asaf Bernal RPh 09/20/24 12:54: med rec checked by [facility] Original Note: Pharmacy Consult ? Medication Reconciliation Pharmacy has completed the medication reconciliation. Received med list from the [facility], Duloxetine information not clear on the med list. Spoke with pt monet Neal at pt bedside and she had a list of meds on hand and states herself and the rest of the family takes care of the pt meds and the [facility] wouldn't know about them. Daughter confirmed the pt Duloxetime stating the pt takes 90 mg QD (3-30 mg tabs). Pt taking a Losartan-HCTZ tab QD per daughter but the daughter didn't remember the dose and states [facility] fills it; I called [facility] and they stated the pt last got Losartan-HCZT 100/12.5mg back in for 30 days and states the pt has not tried filling it since. Daughter confirmed the pt was started on Amlodipine 2.5mg tabs 1 QD when she was in rehab and was instructed to continue it until she met with her Dr next week.
--- NOTE | 2024-09-20 14:47 | PM.GICN ---
History of Present Illness Data of Consult Service Date: 09/20/24 Requesting physician: Eileen Davalos Primary Care Provider: Krystle Christine NP HPI Reason for consult: GIB 84-year-old female with past medical history of coronary artery disease, hypertension, DVT, severe anxiety disorder, delirium, who presented to the hospital from rehab for rectal bleeding. Patient was seen in the emergency room last month after mechanical fall and was diagnosed with transverse forearm fracture. She was transferred to acute rehab. Reports that her last regular bowel movement was almost a week ago. She has progressively been having lower abdominal discomfort and bloating. However, no nausea, change in appetite, has been tolerating diet as per usual. Started noticing rectal bleeding 2 days prior to presentation which was initially attributed to using non dominant hand for wiping. However this persisted, she was brought in. Vitals on admission have remained normal. Patient is afebrile. Labs with normal hemoglobin, that has not dropped this over the last 12 hours. Chem [address] abdomen and pelvis personally reviewed that showed significant fecal loading with a medium sized stool ball in rectum with some assoc rectal wall thickening. Review of Systems Review of Systems: Yes all other systems are reviewed and are negative PMFSH Past Medical History Medical History Myocardial infarct, old HTN (hypertension) Surgical History Surgical History H/O heart artery stent Social History Social History Household Members: Family Housing: House Do you presently have visiting nurse or other home services: No Alcohol intake: never Patient Tobacco Use Status: Never used Tobacco Advance Directives: Yes Advance Directives on File: Yes Advance Directives Date on File: 08/04/23 Nutrition Risks: No Nutritional Risk service: No Sexual orientation: Straight/Heterosexual Meds Allergies Allergy/AdvReac Type Severity Reaction Status Date / Time [id number] Reductase Allergy Unknown Verified 09/19/24 19:49 Inhibitor melons Allergy Unknown throat Uncoded 09/19/24 19:49 sweling Active Medications: Current Medications Calcium Carbonate (Calcium Carbonate 750 Mg Tab.Chew) 750 mg PO Q4H PRN PRN Reason: Heartburn Ceftriaxone Sodium (Ceftriaxone Sodium 1 Gm Vial) 1 gm IVPUSH Q24H [facility] Hydralazine HCl (Hydralazine Hcl 20 Mg/Ml Vial) 5 mg IVPUSH Q6H PRN; Protocol PRN Reason: hypertension breakthrogh Last Admin: 09/20/24 10:40 Dose: 5 mg Hydromorphone HCl (Hydromorphone Hcl 0.5 Mg/0.5 Ml Syringe) 0.5 mg IVPUSH Q6H PRN; Protocol PRN Reason: Breakthrough Pain Metronidazole (Flagyl) 500 mg in 100 mls @ 100 mls/hr IV Q8H [facility] Last Infusion: 09/20/24 13:00 Dose: Infused Acetaminophen (Ofirmev) 1,000 mg in 100 mls @ 400 mls/hr IV Q8H [facility] Stop: 09/22/24 04:44 Last Infusion: 09/20/24 12:49 Dose: Infused Ketorolac Tromethamine (Ketorolac Tromethamine 30 Mg/Ml Vial) 30 mg IVPUSH Q6H PRN PRN Reason: Pain, Mild 1-3,fever,headache Stop: 09/24/24 13:36 Magnesium Hydroxide (Milk Of Magnesia 30 Ml Oral.Susp) 30 ml PO DAILY PRN PRN Reason: Constipation Melatonin (Melatonin 3 Mg Tablet) 6 mg PO BEDTIME PRN PRN Reason: Insomnia Morphine Sulfate (Morphine Sulfate 2 Mg/Ml Cartridge) 1 mg IVPUSH Q6H PRN; Protocol PRN Reason: Pain, Severe (Pain Scale 7-10) Last Admin: 09/20/24 14:09 Dose: 1 mg Ondansetron HCl (Ondansetron Hcl 4 Mg/2 Ml Vial) 4 mg IVPUSH Q8H PRN PRN Reason: Nausea and Vomiting Sodium Chloride (0.9 % Sodium Chloride Flush 3 Ml Syringe) 3 ml IVFLUSH QSHIFT [facility] Last Admin: 09/20/24 08:11 Dose: Not Given Home Medications ?Medication ?Instructions ?Recorded ?Confirmed ?Last Taken ?Type cholecalciferol (vitamin D3) 50 50 mcg PO DAILY 08/30/24 09/20/24 09/19/24 History mcg (2,000 unit) tablet (Vitamin D3) evolocumab 140 mg/mL subcutaneous 140 mg subcut Q2W 0609/20/24 09/13/24 History syringe (Repatha Syringe) metoprolol succinate 50 mg 150 mg PO DAILY 08/30/24 09/20/24 09/19/24 History tablet,extended release 24 hr thiamine HCl (vitamin B1) 100 mg 100 mg PO DAILY 08/30/24 09/20/24 09/19/24 History tablet timolol maleate 0.5 % eye drops 1 drp ophthalmic (eye) DAILY 08/30/24 09/20/24 09/19/24 History amlodipine 2.5 mg tablet 2.5 mg PO DAILY 09/20/24 09/20/24 09/19/24 History duloxetine 30 mg capsule,delayed 90 mg PO DAILY 09/20/24 09/20/24 09/19/24 History release sprinkle fluticasone propionate 50 2 spray intranasal DAILY PRN 09/20/24 09/20/24 Unknown History mcg/actuation nasal Congestion spray,suspension losartan 100 1 tab PO DAILY 09/20/24 09/20/24 09/19/24 History mg-hydrochlorothiazide 12.5 mg tablet omega-3 fatty acids 1,000 mg 1,000 mg PO DAILY 09/20/24 09/20/24 09/19/24 History capsule Physical Exam Vital Signs: Vital Signs: Last Vital Signs Temp 98.3 F 09/20/24 13:33 Pulse 97 09/20/24 13:33 Resp 23 H 09/20/24 13:33 BP 167/85 H 09/20/24 13:33 Pulse Ox 94 09/20/24 13:33 O2 Del Method Room Air 09/20/24 13:33 O2 Flow Rate 2 09/20/24 04:35 BMI result Body Mass Index 23.4 Elderly female Daughter Alla at bedside Nonicteric abd soft, mildly distended, nontender A/Ox2, mild psychomotor agitation Results Labs 09/20/24 04:24 09/20/24 04:24 Labs: Short CBC 09/19/24 09/20/24 Range/Units 20:45 04:24 WBC 12.0 H 8.6 (4.8-10.8) X10*3/uL Hgb 12.3 D 12.1 (12.0-16.0) g/dl Hct 35.0 L 34.3 L (37.0-47.0) % Plt Count 476 H 477 H (160-400) X10*3/uL BMP 09/19/24 09/20/24 20:45 04:24 Sodium 128 L 132 L Potassium 3.7 3.3 Chloride 97 98 Carbon Dioxide 24 24 BUN 8 L 6 L Creatinine 0.64 0.57 Calcium 8.7 D 8.5 Liver Function 09/19/24 Range/Units 20:45 Total Bilirubin 0.2 (0.0-1.0) mg/dL AST 24 (5-31) U/L ALT 51 H (0-31) U/L Alkaline Phosphatase 248 H (39-117) U/L Albumin 4.3 (3.5-5.0) g/dL Urine 09/20/24 Range/Units 00:55 Urine Color Yellow Urine Appearance Cloudy Urine pH 7.0 (5.0-9.0) Ur Specific [place] 1.015 (1.005-1.025) Urine Protein Trace (Neg-Trace) mg/dL Urine Glucose (UA) Negative (Negative) mg/dL Assessment and Plan (1) Stercoral colitis: Status: Acute (2) Rectal bleeding: Status: Acute Plan Rectal bleeding likely 2/2 stercoral colitis. Recommend NM bowel regimen, would avoid PO bowel regimen until pt able to pass bowel movement. Urinary retention could either be from constipation or contributing to difficulty passing BM. Plan: - Ok for clears as tolerated - Tap water enema BID today - Pediatric glycerin suppositories x 2 to be inserted NM -- if no response , can repeat one time after 4h - Avoid NSAIDs - Serial abd exams - Encourage ambulation - Correction of electrolytes as per primary team Thank you for allowing me to participate in her care. Please do not hesitate to reach out for questions or concerns. Procedures Date of Service Date of Service: 09/20/24
--- NOTE | 2024-09-20 14:56 | PC.NURSE ---
Pt family Val requests to be kept up to date with any changes/plan of care updates. Phone number [phone]
[2024-09-20] MEDS: 0.9 % Sodium Chloride Flush 3 ML SYRINGE IVFLUSH ×2 (16:40→21:14)
--- NOTE | 2024-09-20 17:20 | PC.NURSE ---
Pharmacy contacted for glycerin suppository
[2024-09-20] MEDS: timoloL maleate 0.5 % Oph Sol 5 ML DRBTL 1 DROP EYE-BOTH (18:34)
[2024-09-21 04:00] VITALS: BP 114/58; PULSE 94; RESP 18; TEMP 37.2; O2SAT 96
[2024-09-21] MEDS: metroNIDAZOLE/NS 500 MG/100 ML PIGGYBACK 100 MG IV ×3 (06:38→21:55)
[2024-09-21 06:59] LABS: Hematocrit 34.1 % (37.0-47.0); Hemoglobin 12.0 g/dl (12.0-16.0); Mean Corpuscular HGB Conc 35.2 g/dl (31.0-35.0); Mean Corpuscular Hemoglobin 31.3 pg (27.0-33.0); Mean Corpuscular Volume 89.0 fL (80.0-98.0); NRBC Abs Auto 0.000 X10*3/uL (0.0-0.012); NRBC Pct Auto 0.0 /100WBC (0.0-0.2); Platelet Count 487 X10*3/uL (160-400); Red Blood Count 3.83 X10*6/uL (4.20-5.50); White Blood Count 10.0 X10*3/uL (4.8-10.8)
[2024-09-21 07:31] VITALS: BP 140/68; PULSE 111; RESP 16; TEMP 36.2; O2SAT 94
--- NOTE | 2024-09-21 08:02 | HO.PM.IMPN ---
Subjective Subjective Date of Service: 09/21/24 Interval History: Patient tested positive for norovirus likely colonization less likely an acute exacerbation However she is paradoxically very constipated GI on board likely has significant stool ball Review of Systems Review of Systems: Yes all other systems are reviewed and are negative Neurologic Neurologic: Reports confusion Psychiatric Psychiatric: Reports confusion Physical Exam Vital Signs: Vital Signs: Last Vital Signs Temp 97.1 F 09/21/24 07:31 Pulse 111 H 09/21/24 07:31 Resp 16 09/21/24 07:31 BP 140/68 H 09/21/24 07:31 Pulse Ox 94 09/21/24 07:31 O2 Del Method Room Air 09/21/24 07:31 O2 Flow Rate 2 09/20/24 04:35 BMI result Body Mass Index 25.3 Const: General: no acute distress, anxious, confusion and tired appearing Orientation/consciousness: confusion Cardio: Rate: regular rate Rhythm: regular rhythm GI: Palpation (GI): Soft to palpation and Tenderness to palpation present (GI) in the epigastrum and in the LLQ Neuro: General: confusion Psych: Appearance: well kempt Affect: Sad affect present, Anxious affect present and Irritable affect present Attitude: Guarded attititude/behavior present Insight: Limited insight present (Psych) Objective Data Active Medications Amlodipine Besylate (Amlodipine Besylate 2.5 Mg Tablet) 2.5 mg PO DAILY MICHELLE; Protocol Calcium Carbonate (Calcium Carbonate 750 Mg Tab.Chew) 750 mg PO Q4H PRN PRN Reason: Heartburn Ceftriaxone Sodium (Ceftriaxone Sodium 1 Gm Vial) 1 gm IVPUSH Q24H COUNT INCLUDES THE [facility] Last Admin: 09/21/24 05:44 Dose: 1 gm Documented By: CATRACHITA Duloxetine HCl (Duloxetine Hcl 30 Mg Capsule.Dr) 90 mg PO BEDTIME COUNT INCLUDES THE [facility] Last Admin: 09/20/24 21:12 Dose: 90 mg Documented By: CATRACHITA Fluticasone Propionate (Fluticasone Propionate Nasal 16 Gm [place]) 2 spray NOSTRIL-B DAILY PRN PRN Reason: Congestion Glycerin (Glycerin Adult Supp.Rect) 1 supp [place] Q12H COUNT INCLUDES THE [facility] Last Admin: 09/21/24 06:38 Dose: Not Given Documented By: CATRACHITA Non-Admin Reason: Med Not Available Hydralazine HCl (Hydralazine Hcl 20 Mg/Ml Vial) 5 mg IVPUSH Q6H PRN; Protocol PRN Reason: hypertension breakthrogh Last Admin: 09/20/24 21:14 Dose: 5 mg Documented By: CATRACHITA Hydromorphone HCl (Hydromorphone Hcl 0.5 Mg/0.5 Ml Syringe) 0.5 mg IVPUSH Q6H PRN; Protocol PRN Reason: Breakthrough Pain Last Admin: 09/20/24 16:24 Dose: 0.5 mg Documented By: CHRISTINE Metronidazole (Flagyl) 500 mg in 100 mls @ 100 mls/hr IV Q8H COUNT INCLUDES THE [facility] Last Infusion: 09/21/24 07:50 Dose: Infused Documented By: TOMMY Acetaminophen (Ofirmev) 1,000 mg in 100 mls @ 400 mls/hr IV Q8H COUNT INCLUDES THE [facility] Stop: 09/22/24 04:44 Last Infusion: 09/21/24 06:38 Dose: Infused Documented By: CATRACHITA Sodium Chloride (Ns) 1,000 mls @ 100 mls/hr IVCONT .Q10H COUNT INCLUDES THE [facility] Last Admin: 09/21/24 05:15 Dose: Not Given Documented By: CATRACHITA Non-Admin Reason: IV Running Magnesium Hydroxide (Milk Of Magnesia 30 Ml Oral.Susp) 30 ml PO DAILY PRN PRN Reason: Constipation Melatonin (Melatonin 3 Mg Tablet) 6 mg PO BEDTIME PRN PRN Reason: Insomnia Metoprolol Tartrate (Metoprolol Tartrate 5 Mg/5 Ml Vial) 2.5 mg IVPUSH Q6H PRN; Protocol PRN Reason: Heart Rate >100 Morphine Sulfate (Morphine Sulfate 2 Mg/Ml Cartridge) 1 mg IVPUSH Q6H PRN; Protocol PRN Reason: Pain, Severe (Pain Scale 7-10) Last Admin: 09/20/24 14:09 Dose: 1 mg Documented By: CHRISTINE Olanzapine (Olanzapine 5 Mg Tablet) 5 mg PO BEDTIME MICHELLE Last Admin: 09/20/24 21:13 Dose: 5 mg Documented By: CATRACHITA Ondansetron HCl (Ondansetron Hcl 4 Mg/2 Ml Vial) 4 mg IVPUSH Q8H PRN PRN Reason: Nausea and Vomiting Sodium Chloride (0.9 % Sodium Chloride Flush 3 Ml Syringe) 3 ml IVFLUSH QSHIFT COUNT INCLUDES THE [facility] Last Admin: 09/20/24 21:14 Dose: 3 ml Documented By: CATRACHITA Thiamine HCl (Thiamine Hcl 100 Mg Tablet) 100 mg PO DAILY COUNT INCLUDES THE [facility] Last Admin: 09/20/24 18:31 Dose: 100 mg Documented By: CHRISTINE Timolol Maleate (Timolol Maleate 0.5 % Oph [place] 5 Ml Drbtl) 1 drop EYE-BOTH DAILY COUNT INCLUDES THE [facility] Last Admin: 09/20/24 18:34 Dose: 1 drop Documented By: CHRISTINE Vitamin D (Cholecalciferol (Vitamin D3) 25 Mcg Tablet) 50 mcg PO DAILY COUNT INCLUDES THE [facility] Labs 09/21/24 06:27 09/21/24 11:17 Labs: Laboratory Results - last 24 hr 09/21/24 06:27 MCV 89.0 MCH 31.3 MCHC 35.2 H RDW 14.1 Plt Count 487 H MPV 8.7 L Absolute Nucleated RBC 0.000 Nucleated RBC % (auto) 0.0 Microbiology Microbiology Results: Microbiology 09/20/24 04:34 Blood Culture - Preliminary Blood - Venous No growth after 24 hours. 09/20/24 04:24 Blood Culture - Preliminary Blood - Venous No growth after 24 hours. Assessment and Plan (1) Stercoral colitis: Status: Acute (2) Constipation: Status: Acute (3) Rectal bleeding: Status: Acute Plan 84-year-old female with pertinent history of CAD s/p stent, hypertension, mixed hyperlipidemia, severe anxietydisorder who presents to the emergency department for bright red blood per rectum 2/2 Stercoral colitis. Patient had a recent possible mechanical fall a month ago and sustained a transverse right forearm fracture which is in a cast. She was transferred to acute rehab. Patient's daughter who is the main historian reports that she has been having no bowel movement since last Wednesday and continued to have worsening abdominal pain and bloating. Imaging-CTA/P showed severe stool burden with medium sized stool ball in the rectum with associated rectal wall thickening. Patient H&H continues to be stable since admission thankfully. Patient needs more tap water enema, glycerin suppositories limited per our pharmacy. Severe abdominal pain and distention secondary to chronic constipation Tenesmus secondary to constipation Constipation likely secondary to physical deconditioning in the setting of rehab/adult failure to thrive Norovirus positive likely colonization, less likely exacerbation Patient had 1 bowel movement with significant relief, continues to be severely constipated Patient paradoxically had norovirus positive, however instead of explosive diarrhea, she has significant constipation with rectal stool ball We will continue to try tap water enema and if unable to tolerate, GI bleed likely 2 of flexible sigmoidoscopy tomorrow Patient to undergo [place] enema p.r.n. Glycerin suppositories p.r.n. limited for our pharmacy Hence we will try lactulose per rectum P.o. bowel meds contraindicated given severity of bowel stool burden UA suggestive of UTI likely secondary to severe constipation Likely her chronic constipation has resulted in her UTI Continue with ceftriaxone and metronidazole We will follow sensitivities and deescalate accordingly CAD s/p stent HTN HLD Patient's antihypertensive medications were held at the time of examination/admission due to the risk of brisk GI bleed/GI intra op management Patient although appears to be hemodynamically stable, given her tenuous multiple medical comorbidities, risk of brisk GI bleed, and hemodynamic collapse, we will continue to hold antihypertensive medications We will treat with hydralazine p.r.n. and Toprol IV p.r.n. and continue to hold p.o. meds given half-life and risk of hemodynamic collapse Please administer hydralazine 5 IV p.r.n. q.6 as his BP continues to be greater than 180 Please administer Toprol IV if heart rate greater than 100 Hold home aspirin in the setting of GI bleed Severe Anxiety disorder Patient appeared to be very anxious Reinitiate home meds for anxiety Can use hydralazine IV p.r.n. for breakthrough anxiety DVT with SCD boots for now Total time managing care of this patient today: 35 minutes. Quality Stroke Does the patient have a stroke diagnosis?: No VTE Prior VTE?: No VTE Risk Level:: Medical - moderate - high VTE Device Contraindication: N/A - Device Ordered VTE Drug Contraindication: Treatment Not Indicated
[2024-09-21] MEDS: 0.9 % Sodium Chloride Flush 3 ML SYRINGE IVFLUSH ×2 (09:29→17:41)
[2024-09-21] MEDS: timoloL maleate 0.5 % Oph Sol 5 ML DRBTL 1 DROP EYE-BOTH (09:51)
[2024-09-21 11:04] VITALS: BP 134/66; PULSE 95; RESP 16; TEMP 36.2; O2SAT 94
[2024-09-21 11:46] LABS: Alanine Aminotransferase 31 U/L (0-31); Albumin Level 3.6 g/dL (3.5-5.0); Alkaline Phosphatase 172 U/L (39-117); Aspartate Amino Transferase 28 U/L (5-31); Blood Urea Nitrogen 7 mg/dL (9-16); Calcium 8.0 mg/dL (8.4-10.2); Creatinine Clr Calc Pharmacy 66.0; Estimated Glomerular Filt Rate > 60; Total Protein 6.0 g/dL (6.5-8.0)
[2024-09-21 11:56] LABS: Anion Gap 12 (12-20); Carbon Dioxide 23 mmol/L (22-29); Chloride 102 mmol/L (96-108); Potassium 2.9 mmol/L (3.3-5.1); Sodium 134 mmol/L (135-145)
[2024-09-21 12:37] LABS: Magnesium 2.0 mg/dL (1.6-2.6)
[2024-09-21] MEDS: Potassium Chloride/H20 10 MEQ/100 ML PIGGYBACK 100 MEQ IV ×4 (13:31→19:26)
[2024-09-21 14:14] LABS: E. coli EAEC Not Detected (Not Detect.); E. coli EPEC Not Detected (Not Detect.); E. coli ETEC Not Detected (Not Detect.); E. coli STEC Not Detected (Not Detect.); Shigella sp./EIEC Not Detected (Not Detect.)
[2024-09-21] MEDS: Potassium Chloride ER 20 MEQ TAB.ER.PRT 40 MEQ PO (14:20)
[2024-09-21 15:39] VITALS: BP 150/80; PULSE 95; RESP 18; TEMP 36.3; O2SAT 95
[2024-09-21 19:34] VITALS: BP 166/90; PULSE 105; RESP 18; TEMP 36.8; O2SAT 96
[2024-09-21] MEDS: Lactulose 320 GM/480 ML SOLUTION 200 GM PR (21:56)
[2024-09-22] VITALS (7 sets, daily range): BP systolic 115–175; BP diastolic 63–78; PULSE 76–115; RESP 16–20; TEMP 36.3–37.2; O2SAT 93–96
[2024-09-22] MEDS: metroNIDAZOLE/NS 500 MG/100 ML PIGGYBACK 100 MG IV ×2 (05:59→14:22)
[2024-09-22 07:01] LABS: Hematocrit 33.3 % (37.0-47.0); Hemoglobin 11.6 g/dl (12.0-16.0); Mean Corpuscular HGB Conc 34.8 g/dl (31.0-35.0); Mean Corpuscular Hemoglobin 30.9 pg (27.0-33.0); Mean Corpuscular Volume 88.8 fL (80.0-98.0); NRBC Abs Auto 0.000 X10*3/uL (0.0-0.012); NRBC Pct Auto 0.0 /100WBC (0.0-0.2); Platelet Count 483 X10*3/uL (160-400); Red Blood Count 3.75 X10*6/uL (4.20-5.50); White Blood Count 7.6 X10*3/uL (4.8-10.8)
[2024-09-22 07:08] LABS: INTERNATIONAL NORM RATIO 1.0 (0.9-1.1); Prothrombin Time 11.9 SEC (10.9-12.4)
[2024-09-22 07:12] LABS: Alanine Aminotransferase 25 U/L (0-31); Albumin Level 3.6 g/dL (3.5-5.0); Alkaline Phosphatase 159 U/L (39-117); Anion Gap 12 (12-20); Aspartate Amino Transferase 35 U/L (5-31); Blood Urea Nitrogen 5 mg/dL (9-16); Calcium 8.0 mg/dL (8.4-10.2); Carbon Dioxide 22 mmol/L (22-29); Chloride 104 mmol/L (96-108); Creatinine Clr Calc Pharmacy 66.0; Estimated Glomerular Filt Rate > 60; Potassium 3.0 mmol/L (3.3-5.1); Sodium 135 mmol/L (135-145); Total Protein 5.9 g/dL (6.5-8.0)
--- NOTE | 2024-09-22 07:58 | P.PNIM_ITS ---
Subjective Subjective Date of Service: 09/22/24 Interval History: Patient continues to feel slightly uncomfortable Patient's bedside nurse did an excellent job in disinfecting the patient's massive stool ball with soap water enema Review of Systems Review of Systems: Yes all other systems are reviewed and are negative Neurologic Neurologic: Reports confusion Psychiatric Psychiatric: Reports confusion Physical Exam 2 Vital Signs: Vital Signs: Last Vital Signs Temp 97.4 F 09/22/24 07:39 Pulse 97 09/22/24 07:39 Resp 20 09/22/24 07:39 BP 154/78 H 09/22/24 07:39 Pulse Ox 94 09/22/24 07:39 O2 Del Method Room Air 09/22/24 07:39 O2 Flow Rate 2 09/20/24 04:35 BMI result Body Mass Index 25.3 Const: General: no acute distress, anxious, confusion and tired appearing O rientation/consciousness: confusion Cardio: Rate: regular rate Rhythm: regular rhythm GI: Palpation (GI): Soft to palpation and Tenderness to palpation present (GI) in the epigastrum and in the LLQ Neuro: General: confusion Psych: Appearance: well kempt Affect: Sad affect present, Anxious affect present and Irritable affect present Attitude: Guarded attititude/behavior present Insight: Limited insight present (Psych) Objective Data Active Medications Amlodipine Besylate (Amlodipine Besylate 2.5 Mg Tablet) 2.5 mg PO DAILY [facility]; Protocol Last Admin: 09/21/24 09:26 Dose: 2.5 mg Documented By: TOMMY Calcium Carbonate (Calcium Carbonate 750 Mg Tab.Chew) 750 mg PO Q4H PRN PRN Reason: Heartburn Ceftriaxone Sodium (Ceftriaxone Sodium 1 Gm Vial) 1 gm IVPUSH Q24H [facility] Last Admin: 09/22/24 05:58 Dose: 1 gm Documented By: CATRACHITA Duloxetine HCl (Duloxetine Hcl 30 Mg Capsule.Dr) 90 mg PO BEDTIME [facility] Last Admin: 09/21/24 21:56 Dose: 90 mg Documented By: CATRACHITA Fluticasone Propionate (Fluticasone Propionate Nasal 16 Gm [place]) 2 spray NOSTRIL-B DAILY PRN PRN Reason: Congestion Glycerin (Glycerin Adult Supp.Rect) 1 supp [place] Q12H [facility] Last Admin: 09/22/24 07:28 Dose: 1 supp Documented By: CATRACHITA Hydralazine HCl (Hydralazine Hcl 20 Mg/Ml Vial) 5 mg IVPUSH Q6H PRN; Protocol PRN Reason: hypertension breakthrogh Last Admin: 09/20/24 21:14 Dose: 5 mg Documented By: CATRACHITA Hydromorphone HCl (Hydromorphone Hcl 0.5 Mg/0.5 Ml Syringe) 0.5 mg IVPUSH Q6H PRN; Protocol PRN Reason: Breakthrough Pain Last Admin: 09/20/24 16:24 Dose: 0.5 mg Documented By: CHRISTINE Sodium Chloride (Ns) 1,000 mls @ 100 mls/hr IVCONT .Q10H MICHELLE Last Admin: 09/22/24 07:27 Dose: 100 mls/hr Documented By: CATRACHITA Metronidazole (Flagyl) 500 mg in 100 mls @ 100 mls/hr IV Q8H MICHELLE Last Infusion: 09/22/24 07:28 Dose: Infused Documented By: CATRACHITA Lactulose (Lactulose 320 Gm/480 Ml Solution) 200 gm [place] Q6H MICHELLE Last Admin: 09/22/24 01:19 Dose: Not Given Documented By: CATRACHITA Non-Admin Reason: Patient Asleep Magnesium Hydroxide (Milk Of Magnesia 30 Ml Oral.Susp) 30 ml PO DAILY PRN PRN Reason: Constipation Melatonin (Melatonin 3 Mg Tablet) 6 mg PO BEDTIME PRN PRN Reason: Insomnia Metoprolol Tartrate (Metoprolol Tartrate 5 Mg/5 Ml Vial) 2.5 mg IVPUSH Q6H PRN; Protocol PRN Reason: Heart Rate >100 Last Admin: 09/22/24 00:46 Dose: 2.5 mg Documented By: CATRACHITA Morphine Sulfate (Morphine Sulfate 2 Mg/Ml Cartridge) 1 mg IVPUSH Q6H PRN; Protocol PRN Reason: Pain, Severe (Pain Scale 7-10) Last Admin: 09/20/24 14:09 Dose: 1 mg Documented By: CHRISTINE Olanzapine (Olanzapine 5 Mg Tablet) 5 mg PO BEDTIME MICHELLE Last Admin: 09/21/24 21:56 Dose: 5 mg Documented By: HO.N-CONNO Ondansetron HCl (Ondansetron Hcl 4 Mg/2 Ml Vial) 4 mg IVPUSH Q8H PRN PRN Reason: Nausea and Vomiting Sodium Chloride (0.9 % Sodium Chloride Flush 3 Ml Syringe) 3 ml IVFLUSH QSHIFT [facility] Last Admin: 09/21/24 23:39 Dose: Not Given Documented By: CATRACHITA Non-Admin Reason: IV Running Thiamine HCl (Thiamine Hcl 100 Mg Tablet) 100 mg PO DAILY [facility] Last Admin: 09/21/24 09:26 Dose: 100 mg Documented By: TOMMY Timolol Maleate (Timolol Maleate 0.5 % Oph [place] 5 Ml Drbtl) 1 drop EYE-BOTH DAILY [facility] Last Admin: 09/21/24 09:51 Dose: 1 drop Documented By: TOMMY Vitamin D (Cholecalciferol (Vitamin D3) 25 Mcg Tablet) 50 mcg PO DAILY [facility] Last Admin: 09/21/24 09:26 Dose: 50 mcg Documented By: TOMMY Labs 09/22/24 06:44 09/22/24 06:44 Labs: Laboratory Results - last 24 hr 09/21/24 09/21/24 09/21/24 06:14 11:17 11:22 MCV MCH MCHC RDW Plt Count MPV Absolute Nucleated RBC Nucleated RBC % (auto) Hold Purple Top SEE NOTE PT INR Anion Gap 12 Estim Creat Clear Calc 66.0 Estimated GFR > 60 Random Glucose 124 H Calcium 8.0 L Magnesium 2.0 Total Bilirubin 0.3 AST 28 ALT 31 Alkaline Phosphatase 172 H Total Protein 6.0 L Albumin 3.6 Stl C. cayetanensis PCR Not Detected Stool Rotavirus A PCR Not Detected Stl Adenov F 40/41 PCR Not Detected Stool Astrovirus (PCR) Not Detected Stool Campylobacter PCR Not Detected Stool Cryptosporidium PCR Not Detected Stl Sh Tox Pr E STEC PCR Not Detected Stool E coli O157 PCR Not applicable Stl Enterotoxigenic E PCR Not Detected Stool EPEC (PCR) Not Detected Stool EAEC (PCR) Not Detected Stl E. histolytica PCR Not Detected Stool Giardia Lamblia PCR Not Detected Stl P. shigelloides PCR Not Detected Stool Salmonella PCR Not Detected Stool Sapovirus (PCR) Not Detected Stl Shigella/EIEC PCR Not Detected St Y.enterocolitica PCR Not Detected Stool Vibrio (PCR) Not Detected Stl Vibrio cholerae PCR Not Detected Stl Norovirus GI/GII PCR Detected A 09/22/24 06:44 MCV 88.8 MCH 30.9 MCHC 34.8 RDW 13.9 Plt Count 483 H MPV 8.2 L Absolute Nucleated RBC 0.000 Nucleated RBC % (auto) 0.0 Hold Purple Top PT 11.9 INR 1.0 Anion Gap 12 Estim Creat Clear Calc 66.0 Estimated GFR > 60 Random Glucose 113 Calcium 8.0 L Magnesium Total Bilirubin 0.3 AST 35 H ALT 25 Alkaline Phosphatase 159 H Total Protein 5.9 L Albumin 3.6 Stl C. cayetanensis PCR Stool Rotavirus A PCR Stl Adenov F 40/41 PCR Stool Astrovirus (PCR) Stool Campylobacter PCR Stool Cryptosporidium PCR Stl Sh Tox Pr E STEC PCR Stool E coli O157 PCR Stl Enterotoxigenic E PCR Stool EPEC (PCR) Stool EAEC (PCR) Stl E. histolytica PCR Stool Giardia Lamblia PCR Stl P. shigelloides PCR Stool Salmonella PCR Stool Sapovirus (PCR) Stl Shigella/EIEC PCR St Y.enterocolitica PCR Stool Vibrio (PCR) Stl Vibrio cholerae PCR Stl Norovirus GI/GII PCR Microbiology Microbiology Results: Microbiology 09/20/24 04:34 Blood Culture - Preliminary Blood - Venous No growth after 48 hours. 09/20/24 04:24 Blood Culture - Preliminary Blood - Venous No growth after 48 hours. 09/20/24 Unknown Urine Culture - Final Urine clean catch - Clean Catch Midstream Assessment and Plan (1) Stercoral colitis: Status: Acute (2) Constipation: Status: Acute (3) Rectal bleeding: Status: Acute Plan 84-year-old female with pertinent history of CAD s/p stent, hypertension, mixed hyperlipidemia, severe anxietydisorder who presents to the emergency department for bright red blood per rectum 2/2 Stercoral colitis. Patient had a recent possible mechanical fall a month ago and sustained a transverse right forearm fracture which is in a cast. She was transferred to acute rehab. Patient likely had significant constipation nearly a week prior to admission in the setting of physical deconditioning and poor p.o. intake and had high stool impaction. Patient underwent multiple enemas and underwent manual disimpaction as of 09/22/2024 with some mild relief. Patient's rectum is slightly excoriated given multiple enemas and trials to have bowel movement hence we will transition to p.o. bowel meds which has been deemed safe, and hold all per rectal enemas Severe abdominal pain and distention secondary to chronic constipation s/p multiple enemas and underwent manual disimpaction as of 09/22/2024 with some mild relief Tenesmus secondary to constipation Constipation likely secondary to physical deconditioning in the setting of rehab/adult failure to thrive Norovirus positive likely colonization, less likely exacerbation Patient underwent multiple tap water enema and lactulose enema and glycerin suppositories with suboptimal results Patient underwent manual disimpaction as of 09/22/2024, given significant excoriation in her rectal vault with multiple trials to void, we will hold all per rectal suppositories and trial p.o. meds which has been deemed safe by GI - we will initiate MiraLax p.o. b.i.d. scheduled and slowly uptitrate as needed and as tolerated to prevent any bowel perforation Patient paradoxically had norovirus positive, however instead of explosive diarrhea, she has significant constipation with rectal stool ball UA suggestive of UTI likely secondary to severe constipation Likely her chronic constipation has resulted in her UTI She was treated with 4 days of ceftriaxone and metronidazole and is being de- escalated to Bactrim which will also help her with hypokalemia CAD s/p stent HTN HLD Patient's antihypertensive medications were held at the time of examination/admission due to the risk of brisk GI bleed/GI intra op management Patient although appears to be hemodynamically stable, given her tenuous multiple medical comorbidities, risk of brisk GI bleed, and hemodynamic collapse, we will continue to hold antihypertensive medications We will treat with hydralazine p.r.n. and Toprol IV p.r.n. and continue to hold p.o. meds given half-life and risk of hemodynamic collapse Please administer hydralazine 5 IV p.r.n. q.6 as his BP continues to be greater than 180 Please administer Toprol IV if heart rate greater than 100 Hold home aspirin in the setting of GI bleed Severe Anxiety disorder Patient appeared to be very anxious Reinitiate home meds for anxiety Can use hydralazine IV p.r.n. for breakthrough anxiety DVT with SCD boots for now This note is constructed using voice recognition software. While every effort has been made to ensure accuracy, hazardous materials tanker driver errors may have been included. Total time managing care of this patient today: 35 minutes. Quality Stroke Does the patient have a stroke diagnosis?: No VTE Prior VTE?: No VTE Risk Level:: Medical - moderate - high VTE Device Contraindication: N/A - Device Ordered VTE Drug Contraindication: Treatment Not Indicated
[2024-09-22] MEDS: 0.9 % Sodium Chloride Flush 3 ML SYRINGE IVFLUSH ×2 (08:56→17:18)
[2024-09-22] MEDS: timoloL maleate 0.5 % Oph Sol 5 ML DRBTL 1 DROP EYE-BOTH (12:58)
--- NOTE | 2024-09-22 15:05 | P.PNGI_ITS ---
Subjective Subjective Date of Service: 09/22/24 Interval History: Patient seen at bedside. Reports no further abdominal discomfort, but continues to have sensation of needing to defecate, but unable to pass any bowel movement. Mariam nursing report that they manually disimpacted the patient this morning, and were able to get out a hard stool ball measuring 3-4 cm. Critical Care Time (minutes): 0 Physical Exam 2 Vital Signs: Vital Signs: Last Vital Signs Temp 97.8 F 09/22/24 12:00 Pulse 97 09/22/24 12:00 Resp 20 09/22/24 12:00 BP 132/63 09/22/24 12:00 Pulse Ox 94 09/22/24 12:00 O2 Del Method Room Air 09/22/24 12:00 O2 Flow Rate 2 09/20/24 04:35 BMI result Body Mass Index 25.3 Elderly female Hard of hearing Right arm in sling Abdomen soft, mildly distended, nontender Rectal exam with loose mucousy brown stool, no solid stool in rectal vault Objective Data Labs 09/22/24 06:44 09/22/24 06:44 Labs: Laboratory Results - last 24 hr 09/22/24 06:44 WBC 7.6 RBC 3.75 L Hgb 11.6 L Hct 33.3 L MCV 88.8 MCH 30.9 MCHC 34.8 RDW 13.9 Plt Count 483 H MPV 8.2 L Absolute Nucleated RBC 0.000 Nucleated RBC % (auto) 0.0 PT 11.9 INR 1.0 Sodium 135 Potassium 3.0 L Chloride 104 Carbon Dioxide 22 Anion Gap 12 BUN 5 L Creatinine 0.54 Estim Creat Clear Calc 66.0 Estimated GFR > 60 Random Glucose 113 Calcium 8.0 L Total Bilirubin 0.3 AST 35 H ALT 25 Alkaline Phosphatase 159 H Total Protein 5.9 L Albumin 3.6 Microbiology Microbiology Results: Microbiology 09/20/24 04:34 Blood - Venous Blood Culture - Preliminary No growth after 48 hours. 09/20/24 04:24 Blood - Venous Blood Culture - Preliminary No growth after 48 hours. 09/20/24 Unknown Urine clean catch - Clean Catch Midstream Urine Culture - Final Procedures Date of Service Date of Service: 09/22/24 Progress Note: A&P Assessment and plan (1) Stercoral colitis: Status: Acute (2) Constipation: Status: Acute (3) Norovirus: Status: Acute Plan Patient initially presented with constipation with possible stercoral colitis. Currently, no further blood noted in the stool. Manually disimpacted earlier today by bedside nursing. On my exam, rectal vault is empty of any solids stool. In terms of norovirus, unclear if this is a true infection, as typically patients with norovirus present with severe nausea, vomiting and diarrhea, patient has neither of these symptoms, and in fact was constipated. Plan: -can advance diet, push liquids -avoid any further per rectal intervention for patient's comfort -KUB -If has persistent fecal loading on KUB, can start MiraLax 1 to 2 times a day Time Spent With Patient Time: Total time managing care of this patient today ____ minutes. Quality Stroke Does the patient have a stroke diagnosis?: No VTE Prior VTE?: No VTE Risk Level:: Medical - moderate - high VTE Device Contraindication: N/A - Device Ordered VTE Drug Contraindication: Treatment Not Indicated
[2024-09-22] MEDS: Metoprolol Tartrate 12.5 MG HALFTAB PO (22:40)
[2024-09-23 04:00] VITALS: BP 137/65; PULSE 80; RESP 16; TEMP 36.3; O2SAT 95
[2024-09-23 07:03] VITALS: BP 152/60; PULSE 69; RESP 18; TEMP 36; O2SAT 94
[2024-09-23 07:17] LABS: Hematocrit 32.8 % (37.0-47.0); Hemoglobin 11.5 g/dl (12.0-16.0); Mean Corpuscular HGB Conc 35.1 g/dl (31.0-35.0); Mean Corpuscular Hemoglobin 30.7 pg (27.0-33.0); Mean Corpuscular Volume 87.7 fL (80.0-98.0); NRBC Abs Auto 0.000 X10*3/uL (0.0-0.012); NRBC Pct Auto 0.0 /100WBC (0.0-0.2); Platelet Count 473 X10*3/uL (160-400); Red Blood Count 3.74 X10*6/uL (4.20-5.50); White Blood Count 5.7 X10*3/uL (4.8-10.8)
[2024-09-23 07:22] LABS: INTERNATIONAL NORM RATIO 1.1 (0.9-1.1); Prothrombin Time 12.5 SEC (10.9-12.4)
[2024-09-23 08:20] LABS: Alanine Aminotransferase 30 U/L (0-31); Albumin Level 3.3 g/dL (3.5-5.0); Alkaline Phosphatase 134 U/L (39-117); Anion Gap 9 (12-20); Aspartate Amino Transferase 35 U/L (5-31); Blood Urea Nitrogen < 3 mg/dL (9-16); Calcium 7.4 mg/dL (8.4-10.2); Carbon Dioxide 26 mmol/L (22-29); Chloride 104 mmol/L (96-108); Creatinine Clr Calc Pharmacy 75.8; Estimated Glomerular Filt Rate > 60; Potassium 2.5 mmol/L (3.3-5.1); Sodium 136 mmol/L (135-145); Total Protein 5.3 g/dL (6.5-8.0)
[2024-09-23] MEDS: Metoprolol Tartrate 12.5 MG HALFTAB PO ×2 (08:32→21:03)
[2024-09-23] MEDS: timoloL maleate 0.5 % Oph Sol 5 ML DRBTL 1 DROP EYE-BOTH (08:33)
[2024-09-23] MEDS: 0.9 % Sodium Chloride Flush 3 ML SYRINGE IVFLUSH ×3 (08:33→21:08)
[2024-09-23] MEDS: Potassium Chloride Packet 20 MEQ PACKET 40 MEQ PO ×2 (09:56→11:25)
[2024-09-23] MEDS: Potassium Chloride/H20 10 MEQ/100 ML PIGGYBACK 100 MEQ IV ×2 (10:04→11:26)
[2024-09-23 11:09] VITALS: BP 139/68; PULSE 78; RESP 18; TEMP 36.8; O2SAT 95
[2024-09-23 11:56] LABS: Anion Gap 11 (12-20); Blood Urea Nitrogen < 3 mg/dL (9-16); Calcium 7.4 mg/dL (8.4-10.2); Carbon Dioxide 22 mmol/L (22-29); Chloride 104 mmol/L (96-108); Creatinine Clr Calc Pharmacy 72.8; Estimated Glomerular Filt Rate > 60; Potassium 3.8 mmol/L (3.3-5.1); Sodium 133 mmol/L (135-145)
--- NOTE | 2024-09-23 13:20 | P.PNIM_ITS ---
Subjective Subjective Date of Service: 09/23/24 Interval History: Seen and evaluated this morning laying comfortable in bed difficult to hear son at bedside moving her bowels no other events Review of Systems Review of Systems: Yes all other systems are reviewed and are negative Physical Exam 2 Vital Signs: Vital Signs: Last Vital Signs Temp 98.3 F 09/23/24 11:09 Pulse 78 09/23/24 11:09 Resp 18 09/23/24 11:09 BP 139/68 09/23/24 11:09 Pulse Ox 95 09/23/24 11:09 O2 Del Method Room Air 09/23/24 11:09 O2 Flow Rate 2 09/20/24 04:35 BMI result Body Mass Index 25.3 Const: Other: Constitutional : interactive, not in distress Cardiovascular : no JVP, no lower extremity edema Respiratory : bilateral chest movement, not in resp distress Gastrointestinal: soft, lax, Non tender Skin : Warm, Dry Neurological : Alert & orientedto self and place, No focal deficit Objective Data Active Medications Amlodipine Besylate (Amlodipine Besylate 2.5 Mg Tablet) 2.5 mg PO DAILY [facility]; Protocol Last Admin: 09/23/24 08:32 Dose: 2.5 mg Documented By: ARIK Aspirin (Aspirin 81 Mg Tab.Chew) 81 mg PO DAILY [facility] Last Admin: 09/23/24 08:33 Dose: 81 mg Documented By: ARIK Calcium Carbonate (Calcium Carbonate 750 Mg Tab.Chew) 750 mg PO Q4H PRN PRN Reason: Heartburn Duloxetine HCl (Duloxetine Hcl 30 Mg Capsule.Dr) 90 mg PO BEDTIME [facility] Last Admin: 09/22/24 22:39 Dose: 90 mg Documented By: CATRACHITA Fluticasone Propionate (Fluticasone Propionate Nasal 16 Gm [place]) 2 spray NOSTRIL-B DAILY PRN PRN Reason: Congestion Hydromorphone HCl (Hydromorphone Hcl 0.5 Mg/0.5 Ml Syringe) 0.5 mg IVPUSH Q6H PRN; Protocol PRN Reason: Breakthrough Pain Last Admin: 09/22/24 11:20 Dose: 0.5 mg Documented By: ARIK Magnesium Hydroxide (Milk Of Magnesia 30 Ml Oral.Susp) 30 ml PO DAILY PRN PRN Reason: Constipation Melatonin (Melatonin 3 Mg Tablet) 6 mg PO BEDTIME PRN PRN Reason: Insomnia Metoprolol Tartrate (Metoprolol Tartrate 12.5 Mg Halftab) 12.5 mg PO BID [facility]; Protocol Last Admin: 09/23/24 08:32 Dose: 12.5 mg Documented By: ARIK Morphine Sulfate (Morphine Sulfate 2 Mg/Ml Cartridge) 1 mg IVPUSH Q6H PRN; Protocol PRN Reason: Pain, Severe (Pain Scale 7-10) Last Admin: 09/20/24 14:09 Dose: 1 mg Documented By: CHRISTINE Olanzapine (Olanzapine 5 Mg Tablet) 5 mg PO BEDTIME [facility] Last Admin: 09/22/24 22:40 Dose: 5 mg Documented By: CATRACHITA Ondansetron HCl (Ondansetron Hcl 4 Mg/2 Ml Vial) 4 mg IVPUSH Q8H PRN PRN Reason: Nausea and Vomiting Polyethylene Glycol (Polyethylene Glycol 3350 17 Gm Powd.Pack) 17 gm PO BID [facility] Last Admin: 09/23/24 08:33 Dose: 17 gm Documented By: ARIK Sodium Chloride (0.9 % Sodium Chloride Flush 3 Ml Syringe) 3 ml IVFLUSH QSHIFT [facility] Last Admin: 09/23/24 08:33 Dose: 3 ml Documented By: ARIK Thiamine HCl (Thiamine Hcl 100 Mg Tablet) 100 mg PO DAILY [facility] Last Admin: 09/23/24 08:34 Dose: 100 mg Documented By: ARIK Timolol Maleate (Timolol Maleate 0.5 % Oph Cathryn 5 Ml Drbtl) 1 drop EYE-BOTH DAILY [facility] Last Admin: 09/23/24 08:33 Dose: 1 drop Documented By: ARIK Vitamin D (Cholecalciferol (Vitamin D3) 25 Mcg Tablet) 50 mcg PO DAILY [facility] Last Admin: 09/23/24 08:32 Dose: 50 mcg Documented By: ARIK Labs 09/23/24 06:58 09/23/24 11:29 Labs: Laboratory Results - last 24 hr 09/23/24 09/23/24 06:58 11:29 MCV 87.7 MCH 30.7 MCHC 35.1 H RDW 13.9 Plt Count 473 H MPV 8.3 L Absolute Nucleated RBC 0.000 Nucleated RBC % (auto) 0.0 PT 12.5 H INR 1.1 Anion Gap 9 L 11 L Estim Creat Clear Calc 75.8 72.8 Estimated GFR > 60 > 60 Random Glucose 102 143 H Calcium 7.4 L D 7.4 L Total Bilirubin 0.3 AST 35 H ALT 30 Alkaline Phosphatase 134 H Total Protein 5.3 L Albumin 3.3 L Assessment and Plan (1) Norovirus: Status: Acute (2) Rectal bleeding: Status: Acute (3) Urinary tract infection: Status: Acute (4) Stercoral colitis: Status: Acute Plan 84-year-old female with pertinent history of CAD s/p stent, hypertension, mixed hyperlipidemia, severe anxietydisorder who presents to the emergency department for bright red blood per rectum 2/2 Stercoral colitis. Patient had a recent possible mechanical fall a month ago and sustained a transverse right forearm fracture which is in a cast. She was transferred to acute rehab. Patient likely had significant constipation nearly a week prior to admission in the setting of physical deconditioning and poor p.o. intake and had high stool impaction. Severe abdominal pain and distention secondary to chronic constipation s/p multiple enemas and underwent manual disimpaction as of 09/22/2024 with some relief Tenesmus secondary to constipation Constipation likely secondary to physical deconditioning in the setting of rehab/adult failure to thrive Norovirus positive likely colonization, less likely exacerbation hold all per rectal suppositories Continue MiraLax p.o. b.i.d. physical deconditioing Pending PT eval Acute hypokalemia replacement given, resolved UTI likely secondary to severe constipation Likely her chronic constipation has resulted in her UTI She was treated with 4 days of ceftriaxone and metronidazole. Cx negative CAD s/p stent , HTN , HLD continue to hold antihypertensive medications Start Amlodipine 2.5 mg daily , MEtoprolol 12.5 bid restart aspirin Severe Anxiety disorder Reinitiate home meds for anxiety DVT SCD boots for now given rectal bleeding Quality Stroke Does the patient have a stroke diagnosis?: No VTE Prior VTE?: No VTE Risk Level:: Medical - moderate - high VTE Device Contraindication: N/A - Device Ordered VTE Drug Contraindication: Treatment Not Indicated
[2024-09-23 15:36] VITALS: BP 123/84; PULSE 100; RESP 16; TEMP 36.1; O2SAT 96
[2024-09-23 20:00] VITALS: BP 149/70; PULSE 99; RESP 18; TEMP 36.1; O2SAT 95
[2024-09-24] VITALS: BP 142/68; PULSE 98; RESP 18; TEMP 36.3; O2SAT 95
[2024-09-24 04:00] VITALS: BP 145/70; PULSE 81; RESP 18; TEMP 36.2; O2SAT 92
[2024-09-24 07:02] VITALS: BP 157/74; PULSE 96; RESP 18; TEMP 36.8; O2SAT 93
[2024-09-24 08:29] LABS: MANUAL DIFF FLAG NO
[2024-09-24 08:32] LABS: Hematocrit 34.8 % (37.0-47.0); Hemoglobin 11.8 g/dl (12.0-16.0); Imm Gran Abs Auto 0.02 X10*3/uL (0.00-0.03); Imm Gran Pct Auto 0.3 % (0.0-0.4); Lymphocytes Absolute Auto 2.0 X10*3/uL (1.2-4.9); Mean Corpuscular HGB Conc 33.9 g/dl (31.0-35.0); Mean Corpuscular Hemoglobin 31.1 pg (27.0-33.0); Mean Corpuscular Volume 91.6 fL (80.0-98.0); NRBC Abs Auto 0.000 X10*3/uL (0.0-0.012); NRBC Pct Auto 0.0 /100WBC (0.0-0.2); Platelet Count 433 X10*3/uL (160-400); Red Blood Count 3.80 X10*6/uL (4.20-5.50); White Blood Count 7.3 X10*3/uL (4.8-10.8)
[2024-09-24 08:52] LABS: Anion Gap 11 (12-20); Blood Urea Nitrogen < 3 mg/dL (9-16); Calcium 7.8 mg/dL (8.4-10.2); Carbon Dioxide 23 mmol/L (22-29); Chloride 107 mmol/L (96-108); Creatinine Clr Calc Pharmacy 71.3; Estimated Glomerular Filt Rate > 60; Potassium 3.5 mmol/L (3.3-5.1); Sodium 137 mmol/L (135-145)
[2024-09-24] MEDS: Metoprolol Tartrate 12.5 MG HALFTAB PO ×2 (08:55→20:52)
[2024-09-24] MEDS: timoloL maleate 0.5 % Oph Sol 5 ML DRBTL 1 DROP EYE-BOTH (08:56)
[2024-09-24] MEDS: 0.9 % Sodium Chloride Flush 3 ML SYRINGE IVFLUSH ×3 (08:57→20:56)
[2024-09-24 11:01] VITALS: BP 146/67; PULSE 72; RESP 18; TEMP 36.7; O2SAT 95
--- NOTE | 2024-09-24 11:52 | HO.PM.IMPN ---
Subjective Subjective Date of Service: 09/24/24 Interval History: Seen and evaluated this morning laying comfortable in bed difficult to hear , moving her bowels , less diarrhea overnight no other events Review of Systems Review of Systems: Yes all other systems are reviewed and are negative Physical Exam Vital Signs: Vital Signs: Last Vital Signs Temp 98.1 F 09/24/24 11:01 Pulse 72 09/24/24 11:01 Resp 18 09/24/24 11:01 BP 146/67 H 09/24/24 11:01 Pulse Ox 95 09/24/24 11:01 O2 Del Method Room Air 09/24/24 11:01 O2 Flow Rate 2 09/20/24 04:35 BMI result Body Mass Index 25.3 Const: Other: Constitutional : interactive, not in distress Cardiovascular : no JVP, no lower extremity edema Respiratory : bilateral chest movement, not in resp distress Gastrointestinal: soft, lax, Non tender Skin : Warm, Dry Neurological : Alert & orientedto self and place, No focal deficit Objective Data Active Medications Amlodipine Besylate (Amlodipine Besylate 2.5 Mg Tablet) 2.5 mg PO DAILY [facility]; Protocol Last Admin: 09/24/24 08:55 Dose: 2.5 mg Documented By: ARIK Aspirin (Aspirin 81 Mg Tab.Chew) 81 mg PO DAILY [facility] Last Admin: 09/24/24 08:56 Dose: 81 mg Documented By: ARIK Calcium Carbonate (Calcium Carbonate 750 Mg Tab.Chew) 750 mg PO Q4H PRN PRN Reason: Heartburn Duloxetine HCl (Duloxetine Hcl 30 Mg Capsule.Dr) 90 mg PO BEDTIME [facility] Last Admin: 09/23/24 21:03 Dose: 90 mg Documented By: NICOLE Fluticasone Propionate (Fluticasone Propionate Nasal 16 Gm [place]) 2 spray NOSTRIL-B DAILY PRN PRN Reason: Congestion Hydromorphone HCl (Hydromorphone Hcl 0.5 Mg/0.5 Ml Syringe) 0.5 mg IVPUSH Q6H PRN; Protocol PRN Reason: Breakthrough Pain Last Admin: 09/23/24 18:12 Dose: 0.5 mg Documented By: SANDRA Magnesium Hydroxide (Milk Of Magnesia 30 Ml Oral.Susp) 30 ml PO DAILY PRN PRN Reason: Constipation Melatonin (Melatonin 3 Mg Tablet) 6 mg PO BEDTIME PRN PRN Reason: Insomnia Metoprolol Tartrate (Metoprolol Tartrate 12.5 Mg Halftab) 12.5 mg PO BID [facility]; Protocol Last Admin: 09/24/24 08:55 Dose: 12.5 mg Documented By: ARIK Morphine Sulfate (Morphine Sulfate 2 Mg/Ml Cartridge) 1 mg IVPUSH Q6H PRN; Protocol PRN Reason: Pain, Severe (Pain Scale 7-10) Last Admin: 09/20/24 14:09 Dose: 1 mg Documented By: MARISA-HERACLIO Olanzapine (Olanzapine 5 Mg Tablet) 5 mg PO BEDTIME [facility] Last Admin: 09/23/24 21:03 Dose: 5 mg Documented By: NICOLE Ondansetron HCl (Ondansetron Hcl 4 Mg/2 Ml Vial) 4 mg IVPUSH Q8H PRN PRN Reason: Nausea and Vomiting Polyethylene Glycol (Polyethylene Glycol 3350 17 Gm Powd.Pack) 17 gm PO BID [facility] Last Admin: 09/24/24 08:55 Dose: 17 gm Documented By: ARIK Sodium Chloride (0.9 % Sodium Chloride Flush 3 Ml Syringe) 3 ml IVFLUSH QSHIFT [facility] Last Admin: 09/24/24 08:57 Dose: 3 ml Documented By: ARIK Thiamine HCl (Thiamine Hcl 100 Mg Tablet) 100 mg PO DAILY [facility] Last Admin: 09/24/24 08:56 Dose: 100 mg Documented By: ARIK Timolol Maleate (Timolol Maleate 0.5 % Oph Cathryn 5 Ml Drbtl) 1 drop EYE-BOTH DAILY [facility] Last Admin: 09/24/24 08:56 Dose: 1 drop Documented By: ARIK Vitamin D (Cholecalciferol (Vitamin D3) 25 Mcg Tablet) 50 mcg PO DAILY [facility] Last Admin: 09/24/24 08:55 Dose: 50 mcg Documented By: ARIK Labs 09/24/24 08:10 09/24/24 08:10 Labs: Laboratory Results - last 24 hr 09/23/24 09/24/24 11:29 08:10 MCV 91.6 MCH 31.1 MCHC 33.9 RDW 14.3 Plt Count 433 H MPV 8.4 L Immature Gran % (Auto) 0.3 Neut % (Auto) 59.1 Lymph % (Auto) 27.4 [place] % (Auto) 9.5 Eos % (Auto) 3.0 Baso % (Auto) 0.7 Lymph # (Auto) 2.0 [place] # (Auto) 0.7 Eos # (Auto) 0.2 Baso # (Auto) 0.1 Abs Immat Gran (auto) 0.02 Absolute Neuts (auto) 4.3 Absolute Nucleated RBC 0.000 Nucleated RBC % (auto) 0.0 Anion Gap 11 L 11 L Estim Creat Clear Calc 72.8 71.3 Estimated GFR > 60 > 60 Random Glucose 143 H 104 Calcium 7.4 L 7.8 L Assessment and Plan (1) Norovirus: Status: Acute (2) Constipation: Status: Acute (3) Rectal bleeding: Status: Acute Plan 84-year-old female with pertinent history of CAD s/p stent, hypertension, mixed hyperlipidemia, severe anxietydisorder who presents to the emergency department for bright red blood per rectum 2/2 Stercoral colitis. Patient had a recent possible mechanical fall a month ago and sustained a transverse right forearm fracture which is in a cast. She was transferred to acute rehab. Patient likely had significant constipation nearly a week prior to admission in the setting of physical deconditioning and poor p.o. intake and had high stool impaction. Severe abdominal pain and distention secondary to chronic constipation Constipation likely secondary to physical deconditioning in the setting of rehab/adult failure to thrive s/p multiple enemas and underwent manual disimpaction as of 09/22/2024 with significant relief Tenesmus secondary to constipation ; avoid rectal supp\enema Norovirus positive likely colonization, less likely exacerbation; keep on precautions though recheck XR KUB Continue MiraLax p.o. b.i.d. if XR positive; otherwise daily dose should be enough going forward physical deconditioing Pending PT eval Acute hypokalemia replacement given, resolved UTI likely secondary to severe constipation Likely her chronic constipation has resulted in her UTI She was treated with 4 days of ceftriaxone and metronidazole. Cx negative CAD s/p stent , HTN , HLD continue to hold antihypertensive medications Start Amlodipine 2.5 mg daily , MEtoprolol 12.5 bid restart aspirin Severe Anxiety disorder Reinitiate home meds for anxiety DVT SCD boots for now given rectal bleeding Quality Stroke Does the patient have a stroke diagnosis?: No VTE Prior VTE?: No VTE Risk Level:: Medical - moderate - high VTE Device Contraindication: N/A - Device Ordered VTE Drug Contraindication: Treatment Not Indicated
[2024-09-24 15:48] VITALS: BP 152/72; PULSE 82; RESP 16; TEMP 36.6; O2SAT 94
[2024-09-24 19:54] VITALS: BP 154/76; PULSE 100; RESP 18; TEMP 36.3; O2SAT 94
[2024-09-25] VITALS (10 sets, daily range): BP systolic 121–151; BP diastolic 62–81; PULSE 72–113; RESP 16–20; TEMP 36.1–36.8; O2SAT 92–95
[2024-09-25 07:22] LABS: Anion Gap 10 (12-20); Blood Urea Nitrogen 4 mg/dL (9-16); Calcium 8.1 mg/dL (8.4-10.2); Carbon Dioxide 25 mmol/L (22-29); Chloride 105 mmol/L (96-108); Creatinine Clr Calc Pharmacy 66.0; Estimated Glomerular Filt Rate > 60; Potassium 3.4 mmol/L (3.3-5.1); Sodium 137 mmol/L (135-145)
[2024-09-25] MEDS: 0.9 % Sodium Chloride Flush 3 ML SYRINGE IVFLUSH ×3 (07:32→20:56)
[2024-09-25] MEDS: timoloL maleate 0.5 % Oph Sol 5 ML DRBTL 1 DROP EYE-BOTH (07:33)
[2024-09-25] MEDS: Metoprolol Tartrate 12.5 MG HALFTAB PO ×2 (07:33→20:54)
--- NOTE | 2024-09-25 11:20 | MHC.CM.PN ---
EMR REVIEWED, PER MD PT CAN BE MEDICALLY CLEARED FOR STR VS RETURN TO [facility] W/PT, CM WILL CONT TO FOLLOW.
--- NOTE | 2024-09-26 00:23 | P.PNIM_ITS ---
Subjective Subjective Date of Service: 09/25/24 Interval History: No acute events overnight Diarrhea almost completely stopped; reports one mild episode No N/V or abd pain; has been tolerating a little amount of diet Some right hand/forearm discomfort; no amena pain Review of Systems Review of Systems: Yes all other systems are reviewed and are negative Physical Exam 2 Vital Signs: Vital Signs: Last Vital Signs Temp 97.0 F 09/25/24 23:28 Pulse 75 09/25/24 23:28 Resp 20 09/25/24 23:28 BP 147/66 H 09/25/24 23:28 Pulse Ox 95 09/25/24 23:28 O2 Del Method Room Air 09/25/24 23:28 O2 Flow Rate 2 09/20/24 04:35 BMI result Body Mass Index 25.3 General: AOx3, no acute distress Resp: CTA bilaterally CVS: S1, S2, RRR GI: +BS, NT, no distention Skin: Warm, dry Neuro: Cranial nerves II-XII grossly intact bilaterally. Motor grossly intact bilaterally Extremities: No edema. Right forearm in cast. Psych: Calm, cooperative Objective Data Active Medications Amlodipine Besylate (Amlodipine Besylate 2.5 Mg Tablet) 2.5 mg PO DAILY [facility]; Protocol Last Admin: 09/25/24 07:33 Dose: 2.5 mg Documented By: ARIK Aspirin (Aspirin 81 Mg Tab.Chew) 81 mg PO DAILY [facility] Last Admin: 09/25/24 07:33 Dose: 81 mg Documented By: ARIK Calcium Carbonate (Calcium Carbonate 750 Mg Tab.Chew) 750 mg PO Q4H PRN PRN Reason: Heartburn Duloxetine HCl (Duloxetine Hcl 30 Mg Capsule.Dr) 90 mg PO BEDTIME [facility] Last Admin: 09/25/24 20:54 Dose: 90 mg Documented By: HASMUKH Fluticasone Propionate (Fluticasone Propionate Nasal 16 Gm [place]) 2 spray NOSTRIL-B DAILY PRN PRN Reason: Congestion Magnesium Hydroxide (Milk Of Magnesia 30 Ml Oral.Susp) 30 ml PO DAILY PRN PRN Reason: Constipation Melatonin (Melatonin 3 Mg Tablet) 6 mg PO BEDTIME PRN PRN Reason: Insomnia Last Admin: 09/25/24 20:54 Dose: 6 mg Documented By: HASMUKH Metoprolol Tartrate (Metoprolol Tartrate 12.5 Mg Halftab) 12.5 mg PO BID [facility]; Protocol Last Admin: 09/25/24 20:54 Dose: 12.5 mg Documented By: HASMUKH Olanzapine (Olanzapine 5 Mg Tablet) 5 mg PO BEDTIME [facility] Last Admin: 09/25/24 20:54 Dose: 5 mg Documented By: HASMUKH Ondansetron HCl (Ondansetron Hcl 4 Mg/2 Ml Vial) 4 mg IVPUSH Q8H PRN PRN Reason: Nausea and Vomiting Polyethylene Glycol (Polyethylene Glycol 3350 17 Gm Powd.Pack) 17 gm PO BID [facility] Last Admin: 09/25/24 20:54 Dose: 17 gm Documented By: HASMUKH Sodium Chloride (0.9 % Sodium Chloride Flush 3 Ml Syringe) 3 ml IVFLUSH QSHIFT [facility] Last Admin: 09/25/24 20:56 Dose: 3 ml Documented By: HASMUKH Thiamine HCl (Thiamine Hcl 100 Mg Tablet) 100 mg PO DAILY [facility] Last Admin: 09/25/24 07:32 Dose: 100 mg Documented By: ARIK Timolol Maleate (Timolol Maleate 0.5 % Oph [place] 5 Ml Drbtl) 1 drop EYE-BOTH DAILY [facility] Last Admin: 09/25/24 07:33 Dose: 1 drop Documented By: ARIK Vitamin D (Cholecalciferol (Vitamin D3) 25 Mcg Tablet) 50 mcg PO DAILY [facility] Last Admin: 09/25/24 07:32 Dose: 50 mcg Documented By: ARIK Labs 09/24/24 08:10 09/25/24 06:51 Labs: Laboratory Results - last 24 hr 09/25/24 06:51 Hold Purple Top SEE NOTE Anion Gap 10 L Estim Creat Clear Calc 66.0 Estimated GFR > 60 Random Glucose 103 Calcium 8.1 L Microbiology Microbiology Results: Microbiology 09/20/24 04:34 Blood Culture - Final Blood - Venous No growth after 5 days. 09/20/24 04:24 Blood Culture - Final Blood - Venous No growth after 5 days. Assessment and Plan (1) Constipation: Status: Acute Plan 84-year-old female with pertinent history of CAD s/p stent, hypertension, mixed hyperlipidemia, severe anxietydisorder who presents to the emergency department for bright red blood per rectum 2/2 Stercoral colitis. Patient had a recent possible mechanical fall a month ago and sustained a transverse right forearm fracture which is in a cast. She was transferred to acute rehab. Patient likely had significant constipation nearly a week prior to admission in the setting of physical deconditioning and poor p.o. intake and had high stool impaction. Severe abdominal pain and distention secondary to chronic constipation Constipation likely secondary to physical deconditioning in the setting of rehab/adult failure to thrive s/p multiple enemas and underwent manual disimpaction as of 09/22/2024 with significant relief Tenesmus secondary to constipation ; avoid rectal supp\enema Norovirus positive likely colonization, less likely exacerbation; keep on precautions though Repeat KUB reassuring with no significant residual fecal material in the colon Continue MiraLax p.o. b.i.d. if XR positive; otherwise daily dose should be enough going forward Physical deconditioing PT eval recommending STR; pt prefers [facility] Acute hypokalemia replacement given, resolved UTI likely secondary to severe constipation Likely her chronic constipation has resulted in her UTI She was treated with 4 days of ceftriaxone and metronidazole Cx negative; abx stopped CAD s/p stent , HTN , HLD continue to hold antihypertensive medications Start Amlodipine 2.5 mg daily , MEtoprolol 12.5 bid restart aspirin Severe Anxiety disorder Continue olanzapine and duloxetine DVT SCD boots for now given rectal bleeding Pt require continued hospitalization for continued monitorin of labs in the setting of diarrhea, and safe disposition home. Quality Stroke Does the patient have a stroke diagnosis?: No VTE Prior VTE?: No VTE Risk Level:: Medical - moderate - high VTE Device Contraindication: N/A - Device Ordered VTE Drug Contraindication: Treatment Not Indicated
[2024-09-26 03:25] VITALS: BP 148/76; PULSE 87; RESP 18; TEMP 36.5; O2SAT 93
[2024-09-26 07:22] VITALS: BP 143/71; PULSE 97; RESP 18; TEMP 36.2; O2SAT 94
[2024-09-26 08:44] LABS: Anion Gap 11 (12-20); Blood Urea Nitrogen 5 mg/dL (9-16); Calcium 8.2 mg/dL (8.4-10.2); Carbon Dioxide 29 mmol/L (22-29); Chloride 102 mmol/L (96-108); Creatinine Clr Calc Pharmacy 67.2; Estimated Glomerular Filt Rate > 60; Potassium 3.5 mmol/L (3.3-5.1); Sodium 138 mmol/L (135-145)
[2024-09-26] MEDS: 0.9 % Sodium Chloride Flush 3 ML SYRINGE IVFLUSH ×3 (09:02→21:18)
[2024-09-26] MEDS: Metoprolol Tartrate 12.5 MG HALFTAB PO ×2 (09:03→21:06)
[2024-09-26 11:24] VITALS: BP 127/63; PULSE 102; RESP 18; TEMP 36.6; O2SAT 94
[2024-09-26 15:28] VITALS: BP 152/69; PULSE 98; RESP 16; TEMP 36.1; O2SAT 96
--- NOTE | 2024-09-26 15:38 | MHC.CM.PN ---
PT'S DTR/HCP [facility] AGREEABLE TO [facility] HAS DECLINED PT, LORENZA REQUESTING PT DC TOMORROW 09/27 D/T NEEDING 48HRS W/NO WATERY STOOLS/DIARRHEA, CM WILL CONT TO FOLLOW.
--- NOTE | 2024-09-26 17:44 | P.PNIM_ITS ---
Subjective Subjective Date of Service: 09/26/24 Interval History: No acute events overnight Pt resting comfortably in bed Denies diarrhea; had normal bowel movement last night No recurrence of bleeding Denies nausea, vomiting, or abdominal pain Has been tolerating diet Review of Systems Review of Systems: Yes all other systems are reviewed and are negative Physical Exam 2 Vital Signs: Vital Signs: Last Vital Signs Temp 97 F 09/26/24 15:28 Pulse 98 09/26/24 15:28 Resp 16 09/26/24 15:28 BP 152/69 H 09/26/24 15:28 Pulse Ox 96 09/26/24 15:28 O2 Del Method Room Air 09/26/24 15:28 O2 Flow Rate 2 09/20/24 04:35 BMI result Body Mass Index 25.3 General: AOx3, no acute distress Resp: CTA bilaterally CVS: S1, S2, RRR GI: +BS, NT, no distention Skin: Warm, dry Neuro: Cranial nerves II-XII grossly intact bilaterally. Motor grossly intact bilaterally Extremities: No edema. Right forearm in cast. Psych: Calm, cooperative Objective Data Active Medications Amlodipine Besylate (Amlodipine Besylate 2.5 Mg Tablet) 2.5 mg PO DAILY [facility]; Protocol Last Admin: 09/26/24 09:03 Dose: 2.5 mg Documented By: NORBERT Aspirin (Aspirin 81 Mg Tab.Chew) 81 mg PO DAILY [facility] Last Admin: 09/26/24 09:03 Dose: 81 mg Documented By: NORBERT Calcium Carbonate (Calcium Carbonate 750 Mg Tab.Chew) 750 mg PO Q4H PRN PRN Reason: Heartburn Duloxetine HCl (Duloxetine Hcl 30 Mg Capsule.Dr) 90 mg PO BEDTIME [facility] Last Admin: 09/25/24 20:54 Dose: 90 mg Documented By: HASMUKH Fluticasone Propionate (Fluticasone Propionate Nasal 16 Gm [place]) 2 spray NOSTRIL-B DAILY PRN PRN Reason: Congestion Magnesium Hydroxide (Milk Of Magnesia 30 Ml Oral.Susp) 30 ml PO DAILY PRN PRN Reason: Constipation Melatonin (Melatonin 3 Mg Tablet) 6 mg PO BEDTIME PRN PRN Reason: Insomnia Last Admin: 09/25/24 20:54 Dose: 6 mg Documented By: HASMUKH Metoprolol Tartrate (Metoprolol Tartrate 12.5 Mg Halftab) 12.5 mg PO BID [facility]; Protocol Last Admin: 09/26/24 09:03 Dose: 12.5 mg Documented By: NORBERT Olanzapine (Olanzapine 5 Mg Tablet) 5 mg PO BEDTIME [facility] Last Admin: 09/25/24 20:54 Dose: 5 mg Documented By: HASMUKH Ondansetron HCl (Ondansetron Hcl 4 Mg/2 Ml Vial) 4 mg IVPUSH Q8H PRN PRN Reason: Nausea and Vomiting Polyethylene Glycol (Polyethylene Glycol 3350 17 Gm Powd.Pack) 17 gm PO BID [facility] Last Admin: 09/26/24 09:27 Dose: Not Given Documented By: NORBERT Non-Admin Reason: Physician Held Med Sodium Chloride (0.9 % Sodium Chloride Flush 3 Ml Syringe) 3 ml IVFLUSH QSHIFT [facility] Last Admin: 09/26/24 09:02 Dose: 3 ml Documented By: NORBERT Thiamine HCl (Thiamine Hcl 100 Mg Tablet) 100 mg PO DAILY [facility] Last Admin: 09/26/24 09:03 Dose: 100 mg Documented By: NORBERT Timolol Maleate (Timolol Maleate 0.5 % Oph Cathryn 5 Ml Drbtl) 1 drop EYE-BOTH DAILY [facility] Last Admin: 09/26/24 10:00 Dose: Not Given Documented By: NORBERT Non-Admin Reason: Patient Refused Vitamin D (Cholecalciferol (Vitamin D3) 25 Mcg Tablet) 50 mcg PO DAILY [facility] Last Admin: 09/26/24 09:03 Dose: 50 mcg Documented By: NORBERT Labs 09/24/24 08:10 09/26/24 08:13 Labs: Laboratory Results - last 24 hr 09/26/24 08:13 Anion Gap 11 L Estim Creat Clear Calc 67.2 Estimated GFR > 60 Random Glucose 109 Calcium 8.2 L Assessment and Plan (1) Constipation: Status: Acute Plan 84-year-old female with pertinent history of CAD s/p stent, hypertension, mixed hyperlipidemia, severe anxietydisorder who presents to the emergency department for bright red blood per rectum 2/2 Stercoral colitis. Patient had a recent possible mechanical fall a month ago and sustained a transverse right forearm fracture which is in a cast. She was transferred to acute rehab. Patient likely had significant constipation nearly a week prior to admission in the setting of physical deconditioning and poor p.o. intake and had high stool impaction. Severe abdominal pain and distention secondary to chronic constipation Constipation likely secondary to physical deconditioning in the setting of rehab/adult failure to thrive s/p multiple enemas and underwent manual disimpaction as of 09/22/2024 with significant relief Tenesmus secondary to constipation; avoid rectal supp\enema Norovirus positive though likely colonization, less likely exacerbation; keep on precautions though Repeat KUB reassuring with no significant residual fecal material in the colon Miralax prn for constipation Physical deconditioing PT eval recommending STR [facility], though needs to be diarrhea free for 48 hours before can be transferred Will be discharged tomorrow if no episodes of diarrhea Acute hypokalemia Replacement given, resolved Question of UTI She was treated with 4 days of ceftriaxone and metronidazole Cx negative; abx stopped CAD s/p stent , HTN , HLD Continue home antihypertensives restart aspirin Severe Anxiety disorder Continue olanzapine and duloxetine DVT SCD boots for now given rectal bleeding Pt require continued hospitalization for continued monitoring of diarrhea while awaiting safe disposition to STR. Quality Stroke Does the patient have a stroke diagnosis?: No VTE Prior VTE?: No VTE Risk Level:: Medical - moderate - high VTE Device Contraindication: N/A - Device Ordered VTE Drug Contraindication: Treatment Not Indicated
[2024-09-26 20:00] VITALS: BP 152/97; PULSE 90; RESP 16; TEMP 36.6; O2SAT 95
[2024-09-27 03:56] VITALS: BP 132/60; PULSE 68; RESP 16; TEMP 36.8; O2SAT 99
--- NOTE | 2024-09-27 04:12 | PC.NURSE ---
At bedside safe start last evening at shift change 1929, pt. c/o RUQ/flank pain 06/22 but stated she did not want to take any medication for pain. At 2200, pt. states pain resolved on its own. Pt. refused 12am Vitals so as to get sleep .
[2024-09-27 07:53] VITALS: BP 149/65; PULSE 86; RESP 18; TEMP 35.9; O2SAT 95
[2024-09-27] MEDS: Metoprolol Tartrate 12.5 MG HALFTAB PO (08:24)
[2024-09-27] MEDS: 0.9 % Sodium Chloride Flush 3 ML SYRINGE IVFLUSH (08:26)
[2024-09-27] MEDS: timoloL maleate 0.5 % Oph Sol 5 ML DRBTL 1 DROP EYE-BOTH (08:28)
--- NOTE | 2024-09-27 08:51 | P.DS_ITS ---
DS: Providers Provider Date of Service: 09/27/24 Date of admission: 09/20/24 03:54 Date of discharge: 09/27/24 Primary care physician: Krystle Christine NP Consults: 09/20/24 04:11 Consult to Gastroenterology Routine Consulting Provider: Sarah Broussard Reason for consultation: GI bleed DS: Diagnosis Discharge Diagnosis (1) Constipation: Status: Acute DS: Summary Hospital Course Hospital Course: From admission HPI: Date of Service: 09/20/24 Chief Complaint: Blood in stool This is a 84-year-old female with pertinent history of CAD status post stent, hypertension, mixed hyperlipidemia, mood disorder who presents to the emergency department for bright red blood per rectum. Patient states her symptoms started 3 days prior to presentation. She started having blood mixed with loose stools but subsequently 24 hours prior to presentation had 4 episodes of bright red blood per rectum. Patient states the episode were painful and associated with generalized abdominal discomfort. No nausea or vomiting. No fever or chills. Endorses increased urinary frequency and urgency. No chest pain, palpitations, shortness of breath. Of note, patient was seen in the ER on 08/30/2024 due to mechanical fall. Imaging showed acute transverse fracture of the ulna and patient was discharged to rehab facility. In the emergency department, patient was found to have leukocytosis 12 and stool occult blood positive. Urine concerning for UTI. Hospital course: Pt was admitted to the hospital for severe abdominal pain and bright red blood per rectum mixed with loose stools concerning for possible GI bleed. Abdominal bleeding scan was negative though showed a large amount of stool in the rectum and pt underwent multiple enemas as well as manual disimpaction on 09/22 with significant relief. Repeat KUB on 09/24 reassuring with no significant residual fecal matter in the colon. H&H remained stable with no repeat episodes of BRBPR noted. Electrolyte abnormalities including hypokalemia and hyponatremia resolved with replenishment and IVF. UA was questionable for acute UTI and pt was treated with ceftriaxone and metronidazole x4 days; however, urine cultures were negative and antibiotics were stopped. Stool studies were positive for norovirus, though unclear if it was a true active infection superimposed on chronic constipation. Pt has been having episodes of loose stool 1-2 days prior to presentation, as well as some post disimpaction, but did not have any nausea, vomiting, or severe explosive diarrhea. Symptoms eventually resolved, and pt has been diarrhea free for over 48 hours. Has been able to tolerate solid diet without difficulties. Pt previously suffered right ulnar fracture on 08/30 secondary to mechanical fall. Was initially at [facility] and discharged home last week. Pt, however, is right-hand dominant and uses walker at baseline. Has been having difficulty ambulating with cane in left hand as well as difficulty taking care of her ADLs at home. Was seen and evaluated by PT who recommended going back to [facility]. Pt will be discharged to SNF for additional strength and conditioning. Pt should take docusate 100 mg daily to prevent constipation, and MiraLax 17 g daily as needed for constipation. For CAD s/p stenting, continue aspirin and ezetimibe. For hypertension, include amlodipine, losartan-hydrochlorothiazide, and metoprolol For anxiety continue olanzapine and duloxetine Time Attestation Discharge Coordination Time (in mins): 35 Quality: Safe Use of Opioids Does Pt have an Active Cancer Diagnosis on the Problem List?: No Quality: Stroke Does the patient have a stroke diagnosis?: No Physical Exam Vital Signs: Vital Signs: Last Vital Signs Temp 96.7 F L 09/27/24 07:53 Pulse 86 09/27/24 07:53 Resp 18 09/27/24 07:53 BP 149/65 H 09/27/24 07:53 Pulse Ox 95 09/27/24 07:53 O2 Del Method Room Air 09/27/24 07:53 O2 Flow Rate 2 09/20/24 04:35 BMI result Body Mass Index 25.3 General: AOx3, no acute distress Resp: CTA bilaterally CVS: S1, S2, RRR GI: +BS, NT, no distention Skin: Warm, dry Neuro: Cranial nerves II-XII grossly intact bilaterally. Motor grossly intact bilaterally Extremities: No edema. Right forearm in cast. Psych: Calm, cooperative Discharge Plan Discharge Anticipated Discharge Date/Time: 09/27/24 09:00 Patient Disposition: Xfer SNF Discharge Diagnosis: Severe constipation Referrals: [facility] [Outside] - 1 Week Krystle Christine NP [Primary Care Provider, Internal Medicine] - 1 Week Discharge Medications: New docusate sodium [Colace] 100 mg capsule 100 mg PO DAILY Qty: 90 0RF Rx Instructions: Take one capsule daily for chronic constipation polyethylene glycol 3350 [Miralax] 17 gram/dose powder 17 g PO DAILY PRN (Reason: constipation) Qty: 30 0RF Rx Instructions: Take one dose daily as needed for constipation Continued olanzapine 5 mg Tablet 5 mg PO BEDTIME 30 Days Qty: 30 0RF aspirin 81 mg Tablet,Chewable 81 mg PO DAILY 30 Days Qty: 30 0RF ezetimibe 10 mg Tablet 10 mg PO DAILY 30 Days Qty: 30 0RF metoprolol succinate 50 mg tablet extended release 24 hr 150 mg PO DAILY Repatha Syringe 140 mg/mL syringe 140 mg SUBCUT Q2W timolol maleate 0.5 % drops 1 drp ophthalmic (eye) DAILY Rx Instructions: Apply one drop to both eyes once daily. cholecalciferol (vitamin D3) [Vitamin D3] 50 mcg (2,000 unit) Tablet 50 mcg PO DAILY thiamine HCl (vitamin B1) 100 mg Tablet 100 mg PO DAILY amlodipine 2.5 mg tablet 2.5 mg PO DAILY omega-3 fatty acids 1,000 mg Capsule 1,000 mg PO DAILY fluticasone propionate 50 mcg/actuation [place],Suspension 2 spray INTRANASAL DAILY PRN (Reason: Congestion) Rx Instructions: administer into each nostril losartan-hydrochlorothiazide 100-12.5 mg Tablet 1 tab PO DAILY duloxetine 30 mg Capsule, Delayed Rel Sprinkle 90 mg PO DAILY Discharge Orders: Discharge Order (Routine); Ordered 09/27/24 Ordered By: Luciano Banerjee Activity on Discharge: As tolerated Stand Alone Forms: Patient Portal Discharge page Print Language: Mohawk Care Plan Goals: Return of normal bowel function Physical strengthening See below Health Concerns: Norovirus colitis Constipation Plan of Treatment: You were admitted to the hospital for concerns of diarrhea with bright red blood per rectum, and found to have acute norovirus colitis superimposed on chronic constipation. You are being discharged to a residential facility due to physical deconditioning and limited mobility due to right ulnar fracture Take docusate 100 mg daily to prevent constipation Take MiraLax 17 g as needed daily for constipation Follow up with Orthopedics for right ulnar fracture as previously scheduled Resume all other home medications Assessment: See discharge summary Discharge Date/Time: 09/27/24 11:44
--- NOTE | 2024-09-27 09:26 | MHC.CM.PN ---
Second IMM 09/27/24, Pt has been medically cleared, she will go to [facility] via S today.
== END 2024-09-27 11:44 | disposition skilled nursing facility (03) | DRG 392 ==
LOC: HO.ED 09-20 00:30 → HO.EDOVER 09-20 04:06 → HO.IMC 09-20 19:11
PROVIDERS: Physician Assistant; Physician Assistant Medical; Student in an Organized Health Care Education/Training Program; Admitting Provider Student in an Organized Health Care Education/Training Program; Emergency Provider Emergency Medicine; PCP Nurse Practitioner Family; Visit Provider Student in an Organized Health Care Education/Training Program
DX: K52.89 Other specified noninfective gastroenteritis and colitis (principal); N39.0 Urinary tract infection, site not specified; K62.5 Hemorrhage of anus and rectum; I25.10 Atherosclerotic heart disease of native coronary artery without angina pectoris; Z95.5 Presence of coronary angioplasty implant and graft; E78.2 Mixed hyperlipidemia; R53.81 Other malaise; Z22.1 Carrier of other intestinal infectious diseases; K59.09 Other constipation; F41.9 Anxiety disorder, unspecified; E87.6 Hypokalemia; Z87.891 Personal history of nicotine dependence; Z79.82 Long term (current) use of aspirin; Z79.899 Other long term (current) drug therapy
CPT/HCPCS: 36415; 74018; 74178; 80048; 80053; 81001; 81003; 82272; 83605; 83690; 83735; 85025; 85027; 85610; 87040; 87086; 87507; 97161; 97165; 97535; 99285; J0131; J0360; J0616; J0696; J1171; J1836; J2250; J2270; J2470; J3475; J3480; J7120; Q9967

== ENCOUNTER → 2024-09-20 00:01 | Outpatient (BNV) | payer MEDICARE, OTHER, SELFPAY | PROVIDERS: Emergency Provider Emergency Medicine; PCP Nurse Practitioner Family; Visit Provider Radiology Diagnostic Radiology | DX: N32.89 Other specified disorders of bladder (principal); K56.41 Fecal impaction | CPT/HCPCS: 74178 ==

== ENCOUNTER 2024-09-20 03:54 | Outpatient (BNV) | payer MEDICARE, OTHER, SELFPAY | END 2024-09-24 10:57 | PROVIDERS: Admitting Provider Student in an Organized Health Care Education/Training Program; Emergency Provider Emergency Medicine; PCP Nurse Practitioner Family; Visit Provider Radiology Diagnostic Radiology | DX: K59.00 Constipation, unspecified (principal) | CPT/HCPCS: 74018 ==

== ENCOUNTER → 2024-09-20 03:54 | Outpatient (BNV) | payer MEDICARE, OTHER, SELFPAY | PROVIDERS: Admitting Provider Student in an Organized Health Care Education/Training Program; Emergency Provider Emergency Medicine; PCP Nurse Practitioner Family; Visit Provider Student in an Organized Health Care Education/Training Program | DX: A08.11 Acute gastroenteropathy due to Norwalk agent (principal); K59.00 Constipation, unspecified; K62.5 Hemorrhage of anus and rectum | CPT/HCPCS: 99223; 99232; 99499 ==

== ENCOUNTER → 2024-09-20 03:54 | Outpatient (BNV) | payer MEDICARE, OTHER, SELFPAY | PROVIDERS: Admitting Provider Student in an Organized Health Care Education/Training Program; Emergency Provider Emergency Medicine; PCP Nurse Practitioner Family; Visit Provider Internal Medicine | DX: K52.89 Other specified noninfective gastroenteritis and colitis (principal); K62.5 Hemorrhage of anus and rectum | CPT/HCPCS: 99222; 99232 ==

== ENCOUNTER 2024-10-09 11:00 | Outpatient (REF) | payer MEDICARE, OTHER, SELFPAY ==
--- NOTE | ~2024-10-09 | XR_ITS ---
EXAMINATION: XR FOREARM 2 VIEWS RIGHT HISTORY: M79.631 - Pain in right forearm COMPARISON: Comparison is made with the prior examination dated 08/30/2024. FINDINGS: AP and lateral views of the right forearm are submitted. The bones are osteopenic. Again seen is a fracture of the distal ulnar diaphysis. There is moderate callus formation noted consistent with healing. The fracture line remains visible. The visualized elbow joint spaces are preserved. The soft tissues are unremarkable. XR/XR forearm RT 2V IMPRESSION: Healing fracture of the distal ulnar diaphysis. Electronically signed by: Juvenal Rodriguez MD 10/09/2024 11:46 AM EDT
--- OUTSIDE RECORDS SUMMARY | 2024-10-09 12:20 | XMS_ITS | Data Portability ---
Author Organization [facility] [address] [place] [address] Care Team Providers Care Gastroenterology Physician Name Role Phone JOSE VIZCAINO Primary Care Provider JOSE VIZCAINO Primary Care Provider JANIA BOLDEN [facility] [employer]orer Assessment Encounter Date Assessment Date Assessment LastModified by Organization Details LastModified Time 06/19/2020 06/19/2020 [facility] 05/2014: widely patent LAD stent Echo [...] TID 1.48 LDL 125 (05/2019) [facility] 08/03/2019: Patent LAD stent, YOUSIF to RCA [facility] 08/16/2019: YOUSIF to LCx [email or web address] Not available 06/19/2020 14:36:08 Plan of Treatment Reminders Order Date Submit Date Provider Last Modified By Organization Details Last Modified Time Details Appointments None recorded. Lab None recorded. Referral physical therapist referral - Physical Therapist evaluate and treat both sciatica and neck pain 2020 021 [email or web address] [facility], [address], [address], [place], [address], 08:36:49 Procedures None recorded. Surgeries None recorded. Imaging XR, foot, 3 or more view 2020 [email or web address] [facility], [address] , [place], [address], 11:04:57 US, amanda fall, transthor acic, complete - To be done 02/2021 @ [facility] and read by Dr. Lr 2020 [email or web address] [facility], [address] , [place], [address], 14:29:50 Medication Orders Zithromax 250 mg tablet 2019 020 [email or web address] [facility] [employer] #[id number], [address], [place], [place], [id number], 1 11:38:22 prednison e 10 mg tablet 2019 020 [email or web address] [facility] [employer] #[id number], [address], [place], [place], [id number], 0 14:54:54 Patient TargetsNo targets recorded. Patient Instructions Encounter Date Encounter Id Patient Instructions Last Modified By Organization Details Last Modified Time 06/24/2020 [id number] Please see the attached information about sciatic [...] may also leave a message by calling [phone]. [email or web address] Not available 06/27/2020 14:24:46 Reason for [...] of : 942 Medica l Record #: [id number] Age / Gender : 79 years / F Master Laurie silva ID: [id number] Height : 61.0 in (154.9 cm) Access ion #: [id number] 2 Weight : 113.0 lb (51.3 kg) Admiss ion [id number] BSA: 1.48 mA? Admiss ion Status : [...] Left Ventri abhinav: The left ventri cular buying intern al cavity size is normal . LV [...] on 020 at 11:02: 50 AM Final [id number] [place], [address], 09/27/2019 11:22:09 12/25/19 21 12/24/2020 XR, foot, 3 or more view Exam: XR Foot 3+ Views left Patien t Name: DIANA BRUNNER ID: [id number] 356 3 VIEWS LEFT FOOT 2020 HISTOR [...] Report Signed On: 2020 10:41: [address] [facility] [address] , [place], [address], 12/24/2020 10:48:10 Result Notes Documentation Provider Name and Address Organization Details Recorded Time Xr, Foot, 3 Or More View : Exam: XR Foot 3+ Views left Patient Name: RIDGE BEDOYA 3 VIEWS LEFT FOOT 12/24/2020 HISTORY: Pain No prior study. IMPRESSION: There is moderate bony bunion and hallux valgus deformity with corresponding joint space narrowing at the first metatarsophalangeal joint. There is old fracture deformity fifth metatarsal. No acute fracture or dislocation. No significant heel spur. No radiopaque foreign body in the heel pad. Completed Date: 12/24/2020 10:39:01 AM Transcribed Date: 12/24/2020 10:40:42 AM Referring Provider: Jose Vizcaino MD Report Electronically Signed By: Anne Gurrola MD Report Signed On: 12/24/2020 10:41:33 AM [facility] 12/24/2020 10:48:11 Problems Name Problem SNOMED Code Status Onset Date Resolution Date Notes Provider Name and Address Organization Details Recorded Time Acute ST segment elevatio n myocardi al infarcti on 909809014 Completed 201108/22/2019 MYOCARDI AL INFARCTI ON( 06/07/11) ; Origina l code:I21 .3 Enter ed By: Shauna Nuñez LPN; Signed By: YOBANY Brown NP [address] , [place], [address] , [facility] 0 12:48:47 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, [facility] 0 07:40:23 Hyperlip idemia 57920540 Completed 201105/18/2019 HYPERLIP IDEMIA; Origina l code:E78 .5 Enter ed By: Shauna Nuñez LPN; Signed By: Shauna Nuñez LPN vik [facility], [facility] 0 07:40:25 Hyperten sive disorder 96082393 Active 2011 HYPERTEN ALEX; Origina l code:I10 Entered By: Kelsie Muñoz MA; Signed By: Theo Delgado MD Not Available [facility] 9 07:35:21 Lumbar radiculo laurence 659141529 Active 2011 LUMBAR RADICULO LAURENCE; Origina l code:M54 .16 Ente red By: Theo Delgado MD; Signed By: Theo Delgado MD Not Available [facility] 9 07:35:21 Aortic valve stenosis 99941455 Active 2012 AORTIC STENOSIS ; Origina l code:I35 .0 Enter ed By: Shauna Nuñez LPN; Signed By: Shauna Nuñez LPN Not Available [facility] 9 07:35:22 Syncope 710492427 Completed 201805/18/2019 SYNCOPE; Origina l code:R55 Entered By: Natalie Bolaños MA; Signed By: Juvenal Tineo MD Aki mccormack, [facility] 0 07:40:30 Vertigo 943420908 Completed 201805/18/2019 VERTIGO; Origina l code:R42 Entered By: Natalie Bolaños MA; Signed By: Juvenal Tineo MD Aki mccormack, [facility] 0 07:40:32 Magnetic resonanc e imaging of brain abnormal 316683526 Active 2018 ABNORMAL BRAIN MRI; Origina l code:R90 .89 Ente red By: Natalie Bolaños MA; Signed By: Juvenal Tineo MD Not Available [facility] 9 07:35:22 Hypercho lesterol emia 76914778 Active 2019 Aki mccormack, [facility] 0 07:40:42 Headache 45611141 Completed 201906/06/2019 Aki Modi [facility], [facility] 0 11:21:08 Coronary arterios clerosis 08823227 Active 2019 Aki Modi [facility] 0 09:45:19 Abdomina l pain 69709080 Completed 201906/06/2019 Aki mccormack, [facility] 0 09:48:10 Angina pectoris 468527831 Completed 201906/06/2019 Aki Modi [facility] 0 09:48:05 Dizzines s 549641735 Completed 201901/29/2020 Aki mccormack, [facility] 0 10:20:44 Peripher al vascular disease 765974779 Active 2019 Aki Modi [facility], [facility] 0 11:20:58 Headache 38711457 Active 2019 Aki mccormack, [facility] 0 11:21:08 Allergic rhinitis 05155382 Completed 201901/29/2020 [facility] 0 10:20:41 Pain of left heel 15237238660 97201 Active 2020 Val mccormack, [facility] 1 10:21:11 Problem Notes None recorded. Procedures Surgical History Date Name Laterality Status Provider Name and Address Organization Details Recorded Time Cardiac - Coronary Artery Stent completed Helderzayra Arias [facility] 05/18/2019 09:22:02 Cholecystectomy (Gallbladder) completed Helder Juana [facility] 05/18/2019 09:22:15 Unlisted px ant segment eye completed [facility] 05/18/2019 09:22:25 Imaging Results None recorded. Procedure Notes None recorded. Medical Equipment None Reported. 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 daily Not Available Not Available Not Available Vitamin D3 active uknown dosage, take one cap. daily Not Available Not Available Not Available omega 3 500 mg-dha-epa -B12 500 mcg-FA 1 mg-B6 12.5 mg-phytost vin cap Take 1 capsule every day by oral route. active Not Available Not Available No t Available [facility] 10 billion cell-200 mg sprinkle capsule TK 1 C PO BID 09/26 completed Not Available Not Available Not Available Brilinta 90 mg tablet Take 1 tablet twice a day by oral route. 10/17 completed Not Available Not Available Not Available Fluzone High-Dose 20 (PF) 180 mcg/0.5 mL intramuscu lar syringe ADM 0.5ML IM UTD 07/26 completed Not Available Not Available Not Available Vitals Date Recorded Body height Respiratory rate Body mass index (BMI) Body weight Oxygen saturation Oxygen saturation in Arterial blood by Pulse oximetry Heart rate Systolic And Diastolic Provider Name and Address Organization Details Last Updated DateTime 1 154.94 cm 16 /min 21 kg/m2 11203.1 5 g 98 % 98 % 68 /min 153/73 mm[Hg] Tereseetelvina Shipley [facility] 1 11:41:56 Date Recorded Body height Body temperature Respiratory rate Oxygen saturation Oxygen saturation in Arterial blood by Pulse oximetry Heart rate Pain severity - 0-10 verbal numeric rating [Score] - Reported Systolic And Diastolic Provider Name and Address Organization Details Last Updated DateTime 1 154.94 cm 97.1 [degF] 18 /min 97 % 97 % 87 /min 9 153/83 mm[Hg] Beatriz Aleman [facility] 1 13:08:52 Date Recorded Systolic And Diastolic Provider Name and Address Organization Details Last Updated DateTime 10/09/2019 138/70 mm[Hg] Radha Fuentes [facility] 10/09/2019 12:20:35 Date Recorded Body height Body mass index (BMI) Body weight Heart rate Respiratory rate Oxygen saturation Oxygen saturation in Arterial blood by Pulse oximetry Provider Name and Address Organization Details Last Updated DateTime 0 154.94 cm 21.8 kg/m2 53382.2 2 g 82 /min 16 /min 91 % 91 % Magui Bessonova [facility] 0 10:54:07 Date Recorded Body height Body mass index (BMI) Body weight Heart rate Respiratory rate Oxygen saturation Oxygen saturation in Arterial blood by Pulse oximetry Body temperature Systolic And Diastolic Provider Name and Address Organization Details Last Updated DateTime 0 154.94 cm 22.2 kg/m2 24733.1 1 g 80 /min 14 /min 98 % 98 % 98.1 [degF] 141/72 mm[Hg] Magui Yun [facility] 0 14:53:32 Date Recorded Body height Body mass index (BMI) Body weight Heart rate Respiratory rate Oxygen saturation Oxygen saturation in Arterial blood by Pulse oximetry Body temperature Systolic And Diastolic Provider Name and Address Organization Details Last Updated DateTime 1 154.94 cm 20.2 kg/m2 95004.3 8 g 80 /min 16 /min 97 % 97 % 98 [degF] 138/60 mm[Hg] Hilary King [facility] 1 10:16:27 Social History Question Answer Notes LastModified by Organizat ion Details LastModified Time Tobacco Smoking Status Former Smoker quit [address] [facility] [address] [facility] 10/09/2019 10:56:19 What Is Your Level Of Caffeine Consumption? Moderate Information not available 05/18/2019 How Much Tobacco Do You Chew? 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 7 Walking [email or web address] Information not available 07/31/2019 How Often Do You Have A DRINK Containing ALCOHOL? Never Information not available 05/18/2019 How Often Do You Have Six Or More DRINKS On One Occasion? Never [email or web address] Information not available 07/31/2019 Marital Status Informatio n not available 05/18/2019 How Much Tobacco Do You Smoke? No [facility] – Information not available 05/18/2019 Sex: Unknown Functional Status Question Answer Note LastModified by Organizat ion Details LastModified Time Do you or have you ever used smokeless tobacco? Never used smokeless tobacco [facility] – Information not available 05/18/2019 Do you or have you ever used e-cigarettes or vape? Never used electronic cigarettes [facility] – Information not available 05/18/2019 Mental Status None recorded. Family History Relationship Description Onset Age of this Age Resolved Age Notes LastModified by Organization Details LastModified Time Father Myocardial infarction [facility] – Not available 05/17 09:20:31 Father Heart disease [...] or COPD N Hypercholesteromia Y Heart Attack (ID) N Stomach Ulcers N Anxiety Disorder N Rheumatic Fever N Hypercholesterolemia (high cholesterol) Y Diabetes Mellitus N Bleeding Disorder N Arthritis N Seizures / Epilepsy N Heart Murmur N Renal / Kidney Disease N Hypertension (high blood pressure) Y Congestive Heart Failure (CHF) N Valvular Heart Disease N Blood Clots/DVT/Pulmonary Embolism N No significant past medical history N Cancer N Hospitalization(s) N Asthma N Cerebrovascular Accident (Stroke) N Abnormal Cardiac Stress Test N Hepatic / Liver Disease N Fibromyalgia N Osteoporosis N Abnormal EKG N Gynecological HistoryNo gynecological history recorded. Obstetrics History GPAL:G 0 P 0 0 0 0 Immunizations Vaccine Type Date Status Note Provider Nam e and Address Organization Details Recorded Time Influenza, adjuvanted, trivalent, PF 12/28/2016 completed Helder mccormack, [facility] 05/18/2019 09:19:29 Influenza, split virus, trivalent, PF 12/23/2011 completed [facility]2019 09:19:29 Past Encounters Encounter ID Performer Location Encounter Start Date Encounter Closed Date Diagnosis/Indication Diagnosis SNOMED-CT Code Diagnosis ICD10 Code Diagnosis Note [id number] MD TIBURCIO Oliver[facility] [address] [facility] [address] [facility],[place] [address] 05/18/2019 09:00:52 05/18/2019 13:00:38 Hypertensive disorder 02863715 I10 Aortic valve stenosis 60 117395 I35.0 Coronary arteriosclerosis 54529783 I25.10 Abdominal pain 13071213 R10.9 Headache 31636849 R51 Screening for osteoporosis 096517727 Z13.820 Screening for malignant neoplasm of breast 063403089 Z12.39 Screening for malignant neoplasm of colon 104296497 Z12.11 Hypercholesterolemia 136 64610 E78.00 Urine screening due 1712 91831 N39.9 Screening for malignant neoplasm of rectum 944968010 Z12.12 [id number] Karon Alegria, MARCOS [facility] [address] [place] [address] 05/18/2019 14:43:55 05/18/2019 21:29:37 Angina pectoris 486372642 I20.9 Coronary arteriosclerosis 63249542 I25.10 Hypertensive disorder 38 [address]10[address] I[address] percutaneous transluminal coronary angioplasty 285846078 Z98.61 Aortic valve stenosis 60 393113 I35.0 [id number] MD TIBURCIO [facility] [address] [facility] [address] [facility],[place] [address] 07/27/2019 10:33:48 07/27/2019 11:21:49 Hypercholesterolemia 63497237 E78.00 Hypertensive disorder 38 456970 I10 Urine screening due 1712 99452 N39.9 Dizziness 304025920 R42 MRI finding noted, 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, will refer to neurology Peripheral vascular disease 641742267 I73.9 Headache 64158093 R51 Aortic valve stenosis [address] surgery for possible TAVR [id number] MD TIBURCIO Payne[facility] [address] [place], [place] [address] 07/31/2019 10:54:57 07/31/2019 12:29:40 Coronary arteriosclerosis 62688140 I25.10 Aortic valve stenosis 60 644345 I35.0 [id number] MD TIBURCIO Payne_[facility]_ [facility] [address] [place] [address] 08/22/2019 10:47:20 08/22/2019 20:55:36 Coronary arteriosclerosis 10047902 I25.10 Previous LAD stent patent Status post YOUSIF to RCA and LCx during staged procedure as above No angina Continue DAPT with ASA and Brilinta Patient intolerant to statins, takes fish oil Aortic valve stenosis 60 705405 I35.0 Mild aortic stenosis as above on echo Continue to monitor No SBE prophylaxi s needed Patient po st percutaneous transluminal coronary angioplasty 967198903 Z98.61 Status post YOUSIF to RCA and LCx Previous LAD stent patent Continue DAPT with ASA and Brilinta for 12 months uninterrup tiffanie Hyperlipidemia 75510551 E78.5 LDL 125, above goal She is intolerant to statins, takes fish oil 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 Lr [id number] Jose Vizcaino MD CFRedd[facility] [address] [facility] [address],[facility] [place] [address] 08/28/2019 10:19:51 08/28/2019 16:16:12 Coronary arteriosclerosis 69426768 I25.10 Hypertensive disorder 38 405538 I10 Headache 80565931 R51 Aortic valve stenosis 60 493189 I35[address] surgery for possible TAVR w/ Dr. Bolden. [id number] Prem Ignacio MD CFRedd_[facility] [address] [facility] [address] ,[facility] [address] [place] [address] 09/25/2019 13:07:37 09/25/2019 16:35:33 Peripheral vascular disease 077621007 I73.9 [id number] MD WEI RodriguezL_HFMG_ [facility] [address] [facility] [address] [place] [address] 09/27/2019 09:46:38 09/27/2019 10:50:09 Aortic valve stenosis 97184100 I35.0 Echo done today reviewed. Her aortic [...] Dr. Lr. Referring back to Dr. Vizcaino. [id number] MD TIBURCIO Oliver_[facility]_ [address],[place] [address] 10/09/2019 10:03:15 10/09/2019 15:13:33 Allergic rhinitis 59109941 J01.90 [id number] MD [facility] [address] [place] [address],[place] [address] 10/18/2019 14:35:10 10/18/2019 16:54:51 Hypertensive disorder 10691217 I10 Allergic rhinitis 676488 04 J01.90 Headache 51228168 R51 [id number] MD TIBURCIO Payne[facility] [address] [place] [address] 06/19/2020 11:25:55 06/19/2020 15:35:53 Coronary arteriosclerosis 20604356 I25.10 Previous LAD stent patent Status post YOUSIF to RCA and LCx during staged procedure as above Patient asymptomat ic and feels great Continue DAPT with ASA and Plavix Patient intolerant to statins, takes fish oil and Zetia Aortic valve stenosis 60 109802 I35.0 Mild aortic stenosis as above on echo Continue to monitor with serial echoes Echo in 9 months prior to next visit No SBE prophylaxi s needed Patient po st percutaneous transluminal coronary angioplasty 543079254 Z98.61 Status post YOUSIF to RCA and LCx Previous LAD stent patent Continue DAPT with ASA and and Plavix until August then ASA only after August Hyperlipidemia 73545291 E78.5 LDL 139 (07/2019) above goal She is intolerant to statins, takes fish oil and Zetia Old myocar dial infarction 8698879 I25.2 History of NSTEMI in 2011 Continue Toprol-XL 25 mg daily Hypertensive disorder 38 799892 I10 Blood pressure well controlled Continue losartan 20 mg daily Continue Toprol-XL 25 mg daily Continue HCTZ 25 mg daily Follow-up in 9 months with echo prior [id number] Winnie Hahn NP [facility]_ [facility] [address] [facility] [place] [address] 06/24/2020 12:58:21 06/24/2020 16:16:56 Sciatica 66284345 M54.30 Headache 62820062 R51.9 I also recommend you complete regular [...] after starting the magnesium. Peripheral vascular disease 193313212 I73.9 PVD stable with ASA/Plavix and exercise [id number] Jose Vizcaino MD CFL_[facility]_ [address],[place] [address] 12/24/2020 10:08:02 12/24/2020 19:52:32 Pain of left heel 3383098099 719369 M79.672 Conservati ve treatment Hypertensive disorder 38 763812 I10 Continue current medication s blood pressure is well controlled reduce salt intake Coronary arteriosclerosis 78788934 I25.10 Continue Plavix Health Concerns Section Related Observation LastModified by Organization Detai ls LastModified Time None Recorded Concern Status LastModified by Organization Details LastModified Time None Recorded Advance Directives Directive None Recorded Payers Insurance Date Sequence Insurance Name Policy Number Policy Love Covered Member ID Love Member ID Guarantor Name 09/29/2019 2 FOR LIFE ( - MEDICARE SUPPLEMENT) Ildefonso Vieyraieux [id number] Ridge Scott Cadieux 03/25/2021 1 [place] Ridge Warner Cadaxelx [id number] Ridge Scott Cadieux 03/25/2021 2 FOR LIFE ( - MEDICARE SUPPLEMENT) Ridge Scott Cadieux [id number] Ridge Emmanuelx OBGyn Episode No OBEpisode recorded.
--- OUTSIDE RECORDS SUMMARY | 2024-10-09 12:20 | XMS_ITS | Clinical Summary ---
Author Organization [facility] Address [address] [place] [address] Phone Care Team Providers Care Track Rider Name Role Phone Unavailable Primary Care Provider Unavailabl e Allergies No known active allergies Medications Eliquis 5 MG tablet Take 5 mg by mouth 2 (two) times a day 2 Active famotidine (PEPCID) 20 MG tablet Take 20 mg by mouth in the morning and 20 mg in the evening. 2 Active lisinopril 5 MG tablet Take 5 mg by mouth 1 (one) time each day 2 Active melatonin 3 MG tablet TAKE 1 TABLET BY MOUTH EVERY DAY AT BEDTIME NEEDED FOR INSOMNIA 2 Active metoprolol succinate XL (TOPROL XL) 50 MG 24 hr tablet TAKE 1 TABLET BY MOUTH DAILY. INCREASE STRENGTH 2 Active mirtazapine (REMERON) 15 MG tablet Take 15 mg by mouth at bed time at bedtime 2 Active OLANZapine (ZyPREXA) 5 MG tablet Take 5 mg by mouth at bed time at bedtime 2 Active sertraline (ZOLOFT) 25 MG tablet 2 Active venlafaxine (EFFEXOR) 37.5 MG tablet TAKE 1 TABLET BY MOUTH EVERY DAY FOR 2 WEEKS IF WELL TOLERATED TAKE 1 TWICE DAILY 2 Active acetaminophen (TYLENOL) 325 MG tablet Take by mouth every 6 (six) hours if needed for mild pain Active aspirin (ST SIMON) 81 MG EC tablet Take 81 mg by mouth 1 (one) time each day Active clopidogrel (PLAVIX) 75 MG tablet Take 75 mg by mouth 1 (one) time each day Active docusate sodium (COLACE) 100 MG capsule Take 100 mg by mouth in the morning and 100 mg in the evening. Active ezetimibe (ZETIA) 10 MG tablet Take 10 mg by mouth 1 (one) time each day Active ondansetron ODT (ZOFRAN-ODT) 4 MG dispersible tablet Take 4 mg by mouth every 8 (eight) hours if needed for nausea or vomiting Active Active Problems Problem Noted Date Diagnosed Date Malnutrition 04/24/2021 Anxiety 04/24/2021 Severe anxiety (panic) 04/24/2021 Social History Tobacco Use Types Packs/Day Years Used Date Smoking Tobacco: Never Alcohol Use Standard Drinks/Week Comments Never 0 (1 standard drink = 0.6 oz pur e alcohol) Comments Unknown Sex and Gender Information Value Date Recorded Sex Assigned at Not on file Legal Sex Female 8:49 AM EST Gender Identity Not on file Sexual Orientation Not on file Plan of Treatment Health Maintenance Due Date Last Done Comments Pneumococcal Vaccine: 50+ Ye ars (1 of 1 - PCV) 07/24/1991 Influenza Vaccine (#1) 2024 Hepatitis B Vaccine Aged Out No longe r eligible based on patient's age to complete this topic Insurance Medicare [facility]
--- OUTSIDE RECORDS SUMMARY | 2024-10-09 12:20 | XMS_ITS | Encounter Summary ---
Author Organization [facility] Address [address] [place] [phone] Care Team Providers Care Manager Business Intelligence Name Role Phone Marianna Amador MD Primary Care Provider [phone] Encounter Details Date Type Department Care Team (Late st Contact Info) Description 08/31/2024 Lab Requisition [facility] - Main Lab [address] [facility] [employer] [place] [address] Genna Camilo MD [address] [place] [address] Encounter for other general examination Social History Tobacco Use Types Packs/Day Years Used Date Smoking Tobacco: Former Alcohol Use Standard Drinks/Week Comments Not Asked 0 (1 standard drink = 0.6 oz pur e alcohol) Comments Unknown Sex and Gender Information Value Date Recorded Sex Assigned at Not on file Legal Sex Female 12:37 PM EST Gender Identity Not on file Sexual Orientation Not on file documented as of this encounter Plan of Treatment Not on file documented as of this encounter Procedures Procedure Name Priority Date/Time Associated Diagnosis Comments CBC WITH AUTO DIFFERENTIAL Routine 08/31/2024 5:56 AM EDT Encounter for other general examination CBC AND DIFFERENTIAL Routine 08/31/2024 5:56 AM EDT Encounter for other general examination MAGNESIUM Routine 08/31/2024 5:56 AM EDT Encounter for other general examination COMPREHENSIVE METABOLIC PANEL Routine 08/31/2024 5:56 AM EDT Encounter for other general examination documented in this encounter Results * CBC auto differential (08/31/2024 5:56 AM EDT) [facility] WBC 6.9 4.8 - 10.8 K/mcL LAB HEMETOLOGY METHOD 08/31/2024 11:09 AM [facility] LAB RBC 4.10 3.80 - 4.80 M/mcL LAB HEMETOLOGY METHOD 08/31/2024 11:09 AM [facility] LAB Hemoglobin 12.3 11.5 - 16.0 g/dL LAB HEMETOLOGY METHOD 08/31/2024 11:09 AM [facility] LAB Hematocrit 37.8 35.0 - 47.0 % LAB HEMETOLOGY METHOD 08/31/2024 11:09 AM [facility] LAB MCV 92.2 79.0 - 98.0 FL LAB HEMETOLOGY METHOD 08/31/2024 11:09 AM [facility] LAB MCH 30.0 27.0 - 32.0 pcg LAB HEMETOLOGY METHOD 08/31/2024 11:09 AM [facility] LAB MCHC 32.5 32.0 - 37.0 g/dL LAB HEMETOLOGY METHOD 08/31/2024 11:09 AM [facility] LAB RDW 13.8 11.0 - 15.0 % LAB HEMETOLOGY METHOD 08/31/2024 11:09 AM [facility] LAB Platelets 387 130 - 400 K/mcL LAB HEMETOLOGY METHOD 08/31/2024 11:09 AM [facility] LAB MPV 8.8 7.0 - 11.0 FL LAB HEMETOLOGY METHOD 08/31/2024 11:09 AM [facility] LAB NRBC 0.0 <1.0 % LAB HEMETOLOGY METHOD 08/31/2024 11:09 AM [facility] LAB NRBC Absolute 0.00 <0.10 K/mcL LAB HEMETOLOGY METHOD 08/31/2024 11:09 AM [facility] LAB Neutrophils Relative 47.0 % LAB HEMETOLOGY METHOD 08/31/2024 11:09 AM [facility] LAB Lymphocytes Relative 38.9 % LAB HEMETOLOGY METHOD 08/31/2024 11:09 AM [facility] LAB Monocytes Relative 10.7 % LAB HEMETOLOGY METHOD 08/31/2024 11:09 AM [facility] LAB Eosinophils Relative 2.2 % LAB HEMETOLOGY METHOD 08/31/2024 11:09 AM [facility] LAB Basophils Relative 0.9 % LAB HEMETOLOGY METHOD 08/31/2024 11:09 AM [facility] LAB Immature Granulocytes Relative 0.3 % LAB HEMETOLOGY METHOD 08/31/2024 11:09 AM [facility] LAB Neutrophils Absolute 3.24 1.50 - 7.00 K/mcL LAB HEMETOLOGY METHOD 08/31/2024 11:09 AM [facility] LAB Lymphocytes Absolute 2.68 1.00 - 5.00 K/mcL LAB HEMETOLOGY METHOD 08/31/2024 11:09 AM [facility] LAB Monocytes Absolute 0.74 0.20 - 1.00 K/mcL LAB HEMETOLOGY METHOD 08/31/2024 11:09 AM [facility] LAB Eosinophils Absolute 0.15 0.00 - 0.50 K/mcL LAB HEMETOLOGY METHOD 08/31/2024 11:09 AM [facility] LAB Basophils Absolute 0.06 0.00 - 0.20 K/mcL LAB HEMETOLOGY METHOD 08/31/2024 11:09 AM [facility] LAB Immature Granulocytes Absolute 0.02 0.00 - 0.03 K/mcL LAB HEMETOLOGY METHOD 08/31/2024 11:09 AM [facility] LAB Blood Venous blood specimen / Unknown Venipuncture / Unknown 08/31/2024 5:56 AM EDT 08/31/2024 10:27 AM EDT us Genna Camilo MD LAB BLOOD ORDERABLES Final Resu lt Performing Organization Address [facility]/ZIP Co de Phone Number [facility] LAB [address] [place] [address], [place] [phone] * Magnesium (08/31/2024 5:56 AM EDT) Pathologist [facility] Magnesium 2.4 1.9 - 2.6 mg/dL LAB CHEMISTRY METHOD 08/31/2024 12:02 PM EDT [facility] Blood Venous blood specimen / Unknown Venipuncture / Unknown 08/31/2024 5:56 AM EDT 08/31/2024 10:27 AM EDT us Genna Camilo MD LAB BLOOD ORDERABLES Final Resu lt Performing Organization Address City/[facility]/ZIP Co de Phone Number [facility] [address] [place] [address], [place] [phone] * (ABNORMAL) Comprehensive metabolic panel (08/31/2024 5:56 AM EDT) [facility] Sodium 135 133 - 145 mmol/L LAB CHEMISTRY METHOD 08/31/2024 12:02 PM EDT [facility] Potassium 4.1 3.5 - 5.5 mmol/L LAB CHEMISTRY METHOD 08/31/2024 12:02 PM EDT [facility] Chloride 100 96 - 110 mmol/L LAB CHEMISTRY METHOD 08/31/2024 12:02 PM EDT [facility] CO2 26 21 - 32 mmol/L LAB CHEMISTRY METHOD 08/31/2024 12:02 PM EDT [facility] Anion Gap 9 3 - 11 LAB CHEMISTRY METHOD 08/31/2024 12:02 PM EDT [facility] LAB Glucose 74 70 - 100 mg/dL LAB CHEMISTRY METHOD 08/31/2024 12:02 PM [facility] BUN 9 5 - 25 mg/dL LAB CHEMISTRY METHOD 08/31/2024 12:02 PM [facility] LAB Creatinine 0.63 0.50 - 1.10 mg/dL LAB CHEMISTRY METHOD 08/31/2024 12:02 PM [facility] LAB eGFR 88 >=60 mL/min/1. 73m2 LAB CHEMISTRY METHOD 08/31/2024 12:02 PM [facility] LAB Comment:Calculation based on the Chronic Kidney Disease Epidemiology Collaboration (CKD-EPI) equation refit without adjustment for race. BUN/Creatinine Ratio 14.3 LAB CHEMISTRY METHOD 08/31/2024 12:02 PM [facility] LAB Calcium 8.9 8.5 - 10.5 mg/dL LAB CHEMISTRY METHOD 08/31/2024 12:02 [facility] LAB AST (SGOT) 15 10 - 42 unit/L LAB CHEMISTRY METHOD 08/31/2024 12:02 [facility] LAB ALT (SGPT) 22 10 - 60 unit/L LAB CHEMISTRY METHOD 08/31/2024 12:02 PM [facility] LAB Alkaline Phosphatase 74 42 - 121 unit/L LAB CHEMISTRY METHOD 08/31/2024 12:02 [facility] LAB Total Protein 5.9(L) 6.0 - 8.0 g/dL LAB CHEMISTRY METHOD 08/31/2024 12:02 [facility] LAB Albumin 3.3 3.2 - 5.0 g/dL LAB CHEMISTRY METHOD 08/31/2024 12:02 PM [facility] Total Bilirubin 0.4 0.0 - 1.4 mg/dL LAB CHEMISTRY METHOD 08/31/2024 12:02 PM [facility] Blood Venous blood specimen / Unknown Venipuncture / Unknown 08/31/2024 5:56 AM EDT 08/31/2024 10:27 AM EDT us Genna Camilo MD LAB BLOOD ORDERABLES Final Resu lt [facility] ([facility] LAB [address] [place] [address], documented in this encounter Visit Diagnoses Diagnosis Encounter for other general examination documented in this encounter Care Teams Manager Business Intelligence Relationship Specialty Start Date End Date Marianna Amador MD [address] [place] [address] PCP - General Internal Medicine 10/29/11 documented as of this encounter
== END 2024-10-09 11:01 | disposition home or self-care (01) ==
LOC: HO.HOSX 11:00
DX: S52.201A Unspecified fracture of shaft of right ulna, initial encounter for closed fracture (principal); M79.631 Pain in right forearm; W01.0XXA Fall on same level from slipping, tripping and stumbling without subsequent striking against object, initial encounter
CPT/HCPCS: 73090; 99202

== ENCOUNTER 2024-10-09 11:18 | Outpatient (AMB) | payer MEDICARE, OTHER, SELFPAY ==
--- NOTE | 2024-10-09 11:29 | A.OFFVIS_ITS ---
Vital Signs 10/09/24 11:35 Height 5 ft 1 in Weight 134 lb BMI 25.3 Intake Visit Reasons: ER FU: right ulna fx DOI: 08/30/24 Intake Note: Tim is an 84 year old woman who presents today as a new patient for a [facility] ED follow up status post right ulnar fracture, DOI: 08/30/24. Patient reported to the ED she took a fall on 08/30/24 while trying to get up from the toilet. P atient stated she slipped on the floor and fell onto her right arm. Patient reports today there is some numbness on the dorsal aspect of the right small finger. Her daughter states patient has not complained of pain since the injury. Accompanied by: Daughter Allergies [id number] Reductase Inhibitor Allergy (Verified 10/09/24 11:36) Unknown melons Allergy (Unknown, Uncoded 10/09/24 11:36) throat sweling HPI HPI ER FU: right ulna fx DOI: 08/30/24: Details: Tim is an 84 year old woman who presents today as a new patient for a [facility] ED follow up status post right ulnar fracture, DOI: 08/30/24. Patient reported to the ED she took a fall on 08/30/24 while trying to get up from the toilet. Patient stated she slipped on the floor and fell onto her right arm. Patient was evaluated in the ED, and was placed in a sugar-tong splint, which she has been in since that time. Patient reports today there is some numbness on the dorsal aspect of the right small finger. Her daughter states patient has not complained of pain since the injury. [facility] Medical History Myocardial infarct, old HTN (hypertension) Surgical History H/O heart artery stent Social History Household Members: Other Household Members Other:: [facility] Housing: Other Do you presently have visiting nurse or other home services: Yes Alcohol intake: never Patient Tobacco Use Status: Former Tobacco user Advance Directives Date on File: 08/04/23 service: No Sexual orientation: Straight/Heterosexual Review of Systems Const All systems reviewed & are unremarkable except as noted in HPI and below Physical Exam Vital Signs: BMI result Body Mass Index 25.3 Extrem Other: Patient is alert, oriented, and in no acute distress. Neuro: Normal sensation of the tips of all digits of the right hand at this time Vascular: Cap refill brisk Pain: No tenderness to palpation about right distal ulnar shaft of the level of the fracture No pain with range of motion of the right wrist, elbow, digits of the right hand ROM: Patient is able to make a closed fist and extend all digits of the right hand fully Patient has approximately 30-40 degrees of active flexion, 20 degrees of active extension, full pronation, and approximately 50-60 degrees of active supination of the right wrist Patient is able to extend the right elbow fully and is able to flex to approximately 140 degrees without difficulty Skin: No lacerations or abrasions. General: No ecchymosis, erythema, or evidence of infection. Psych: Appears grossly normal Affect normal Attitude cooperative Office Procedures AMB Fracture Care Fracture Billing Code: Fracture Billing Code Results Reviewed Results Reviewed: X-rays obtained in the office today and independently reviewed by me, Christopher Yuan PA-C, demonstrate minimally displaced fracture of the right ulnar distal shaft with evidence of callus formation and good bony healing. Assessment & Plan Assessment & Plan (1) Fracture of right ulna, shaft: Code(s): S52.201A - Unspecified fracture of shaft of right ulna, initial encounter for closed fracture Category: Medical Plan 1. Right distal ulnar shaft fracture Date of injury 08/30/2024 Patient appears to be recovering well from her injury Patient is educated about the typical recovery course At this time, patient is provided with a Velcro wrist splint to wear with daytime activities 2 lb weight limit reinforced Patient is advised she should be walking with a denny walker, as putting significant force with the wrist or forearm could cause displacement of the fracture Patient is advised she should remove the splint to work on range of motion Patient is amenable to this plan Follow-up in 1 month Orders: Orders XR forearm RT 2V Today M79.631 - Pain in right forearm Coding Level of Care Code New Pt Level 3 (26041) Diagnoses Fracture of right ulna, shaft S52.201A CPT Codes Fracture Care - Fracture Billing Code: Fracture Billing Code ([id number])
[2024-10-09 11:35] VITALS: BMI 25.3
== END 2024-10-09 11:58 | disposition home or self-care (01) ==
LOC: HO.HOS 11:19
PROVIDERS: PCP Nurse Practitioner Family
DX: S52.201A Unspecified fracture of shaft of right ulna, initial encounter for closed fracture (principal)
CPT/HCPCS: 99203

== ENCOUNTER → 2024-10-09 11:21 | Outpatient (BNV) | payer MEDICARE, OTHER, SELFPAY | PROVIDERS: Visit Provider Radiology Diagnostic Radiology | DX: M79.631 Pain in right forearm (principal) | CPT/HCPCS: 73090 ==

== ENCOUNTER 2024-11-01 14:20 | Outpatient (REF) | payer MEDICARE, OTHER, SELFPAY ==
--- OUTSIDE RECORDS SUMMARY | 2024-11-01 15:20 | XMS_ITS | Clinical Summary ---
Author Organization [facility] Address [address] [place] [address] Phone Care Team Providers Care Food Manager Name Role Phone Unavailable Primary Care Provider [...] age to complete this topic Insurance Medicare [employer] Medicare [employer]
--- OUTSIDE RECORDS SUMMARY | 2024-11-01 15:20 | XMS_ITS | Encounter Summary ---
Author Organization [facility] Address [address] [place] [phone] Care Team Providers Care Slicing Machine Operator/Tender Name Role Phone Marianna Amador MD Primary Care Provider Encounter Details Date Type Department Care Team (Late st Contact Info) Description 09/04/2024 Lab Requisition [facility] - Main Lab [address] [place] [address] Genna Camilo MD [address] [place] [address] Encounter for other general examination Social History [...] Procedure Name Priority Date/Time Associated Diagnosis Comments COMPLETE BLOOD COUNT Routine 09/04/2024 4:43 AM EDT Encounter for other general examination COMPREHENSIVE METABOLIC PANEL Routine 09/04/2024 4:43 AM EDT Encounter for other general examination documented in this encounter Results * Complete blood count (09/04/2024 4:43 AM EDT) WBC 6.9 4.8 - 10.8 K/[facility] LAB HEMETOLOGY METHOD 09/04/2024 12:11 PM EDT [facility] LAB RBC 4.00 3.80 - 4.80 M/mcL LAB HEMETOLOGY METHOD 09/04/2024 12:11 PM [facility] LAB Hemoglobin 12.1 11.5 - 16.0 g/dL LAB HEMETOLOGY METHOD 09/04/2024 12:11 PM [facility] LAB Hematocrit 36.6 35.0 - 47.0 % LAB HEMETOLOGY METHOD 09/04/2024 12:11 PM [facility] LAB MCV 90.6 79.0 - 98.0 FL LAB HEMETOLOGY METHOD 09/04/2024 12:11 PM [facility] LAB MCH 30.0 27.0 - 32.0 pcg LAB HEMETOLOGY METHOD 09/04/2024 12:11 PM [facility] LAB MCHC 33.1 32.0 - 37.0 g/dL LAB HEMETOLOGY METHOD 09/04/2024 12:11 PM [facility] LAB RDW 13.9 11.0 - 15.0 % LAB HEMETOLOGY METHOD 09/04/2024 12:11 PM [facility] LAB Platelets 364 130 - 400 K/mcL LAB HEMETOLOGY METHOD 09/04/2024 12:11 PM [facility] LAB MPV 8.7 7.0 - 11.0 FL LAB HEMETOLOGY METHOD 09/04/2024 12:11 PM [facility] LAB NRBC 0.0 <1.0 % LAB HEMETOLOGY METHOD 09/04/2024 12:11 PM [facility] LAB NRBC Absolute 0.00 <0.10 K/mcL LAB HEMETOLOGY METHOD 09/04/2024 12:11 PM [facility] LAB Blood Venous blood specimen / Unknown Venipuncture / Unknown 09/04/2024 4:43 AM EDT 09/04/2024 10:57 AM EDT us Genna Camilo MD LAB BLOOD ORDERABLES Final Resu lt [facility] [address] [place] [address], * (ABNORMAL) Comprehensive metabolic panel (09/04/2024 4:43 AM EDT) Sodium 130(L) 133 - 145 mmol/L LAB CHEMISTRY METHOD 09/04/2024 4:16 PM [facility] LAB Potassium 3.9 3.5 - 5.5 mmol/L LAB CHEMISTRY METHOD 09/04/2024 4:16 PM [facility] LAB Chloride 93(L) 96 - 110 mmol/L LAB CHEMISTRY METHOD 09/04/2024 4:16 PM [facility] LAB CO2 27 21 - 32 mmol/L LAB CHEMISTRY METHOD 09/04/2024 4:16 PM [facility] LAB Anion Gap 10 3 - 11 LAB CHEMISTRY METHOD 09/04/2024 4:16 PM [facility] LAB Glucose 89 70 - 100 mg/dL LAB CHEMISTRY METHOD 09/04/2024 4:16 PM [facility] BUN 11 5 - 25 mg/dL LAB CHEMISTRY METHOD 09/04/2024 4:16 PM [facility] LAB Creatinine 0.70 0.50 - 1.10 mg/dL LAB CHEMISTRY METHOD 09/04/2024 4:16 PM [facility] LAB eGFR 86 >=60 mL/min/1. 73m2 LAB CHEMISTRY METHOD 09/04/2024 4:16 PM [facility] LAB Comment:Calculation based on the Chronic Kidney Disease Epidemiology Collaboration (CKD-EPI) equation refit without adjustment for race. BUN/Creatinine Ratio 15.7 LAB CHEMISTRY METHOD 09/04/2024 4:16 PM [facility] LAB Calcium 9.3 8.5 - 10.5 mg/dL LAB CHEMISTRY METHOD 09/04/2024 4:16 PM EDT [facility] LAB AST (SGOT) 13 10 - 42 unit/L LAB CHEMISTRY METHOD 09/04/2024 4:16 PM EDT [facility] LAB ALT (SGPT) 24 10 - 60 unit/L LAB CHEMISTRY METHOD 09/04/2024 4:16 PM EDT [facility] LAB Alkaline Phosphatase 74 42 - 121 unit/L LAB CHEMISTRY METHOD 09/04/2024 4:16 PM EDT [facility] LAB Total Protein 6.0 6.0 - 8.0 g/dL LAB CHEMISTRY METHOD 09/04/2024 4:16 PM EDT [facility] LAB Albumin 3.4 3.2 - 5.0 g/dL LAB CHEMISTRY METHOD 09/04/2024 4:16 PM EDT [facility] LAB Total Bilirubin 0.5 0.0 - 1.4 mg/dL LAB CHEMISTRY METHOD 09/04/2024 4:16 PM EDT [facility] LAB Blood Venous blood specimen / Unknown Venipuncture / Unknown 09/04/2024 4:43 AM EDT 09/04/2024 10:57 AM EDT us Genna Camilo MD LAB BLOOD ORDERABLES Final Resu lt [facility] [address] [place] [address], documented in this encounter Visit Diagnoses Diagnosis Encounter for other general examination documented in this encounter Care Teams Slicing Machine Operator/Tender Relationship Specialty Start Date End Date Marianna Amador MD [address] [place] [address] PCP - General Internal Medicine 10/29/11 documented as of this encounter
--- NOTE | 2024-11-01 16:54 | MHC.AU.HA3 ---
Hearing Instrument Follow-Up- Binaural Date of Visit: 11/01/24 Right Ear: Zenon, Model, Color, Serial Number: Nilo Ballo [id number] SN: [id number] Color: Treasure Beaamir Tonsorial Artist Repair Warranty: 07/28/2024 Tonsorial Artist Loss and Damage Warranty: 07/28/2024 [facility] Service Plan: 07/28/2024 Battery Size: Rechargeable Systems Software Engineer/Slim Tube: 0M Earmold/Dome/CShell/SlimTip:Small vented dome (no retention tail) Type of Wax Guard: CeruShield Dispensed By: [facility] Date of Fittin05/23/2021 Left Ear: Zenon, Model, Color, Serial Number: Nilo Ballo [id number] SN: [id number] Color: Sand Beige Tonsorial Artist Repair Warranty: 07/28/2024 Tonsorial Artist Loss and Damage Warranty: 07/28/2024 [facility] Service Plan: 07/28/2024 Battery Size: Rechargeable Systems Software Engineer/Slim Tube: 0M Earmold/Dome/CShell/SlimTip: Small open dome (no retention tail) Type of Wax Guard: CeruShield Dispensed By: [facility] Date of Fittin05/23/2021 Follow-Up Summary: Both aids and maintenance painter apprentice dropped off with right cardiopulmonary supervisor wire broken. Cleaned aids, replaced left dome and wax guard. Replaced right cardiopulmonary supervisor with one that was stored in Lina's chart labelled back up . Listening check positive. Charge will be for maintenance only despite being out of warranty as this cardiopulmonary supervisor had been stored in Lina's chart. Recommendations: Recommendations: Hearing instrument follow-up or maintenance as needed. Diagnosis Code(s): Primary Diagnosis: H90.3 Bilateral Sensorineural Hearing Loss Signature: Provider: Shima Mason, [facility] [place] [place]
== END 2024-11-01 14:21 | disposition home or self-care (01) ==
LOC: HO.HAP 14:20
PROVIDERS: Visit Provider Nurse Practitioner Family
DX: Z13.89 Encounter for screening for other disorder (principal)

== ENCOUNTER 2024-11-02 11:55 | Outpatient (REF) | payer SELFPAY | END 2024-11-02 11:56 | disposition home or self-care (01) | LOC: HO.HAP 11:55 | PROVIDERS: Visit Provider Nurse Practitioner Family | DX: Z46.1 Encounter for fitting and adjustment of hearing aid (principal); H90.3 Sensorineural hearing loss, bilateral | CPT/HCPCS: 92593 ==

== ENCOUNTER 2024-11-07 08:42 | Outpatient (REF) | payer SELFPAY ==
--- NOTE | ~2024-11-07 | XR_ITS ---
EXAMINATION: XR WRIST, RIGHT CLINICAL INFORMATION: M25.531 - Pain in right wrist COMPARISON: Correlated to right forearm x-ray dated October 09, 2024. TECHNIQUE: PA, lateral, and oblique views of the right wrist. FINDINGS: The carpal bones are intact with normal alignment. There is an old traumatic deformity with a callus formation in the distal diaphysis of the ulna as well as the fifth metacarpal and probably the distal metaphysis of the radius. Osteopenia versus osteoporosis. XR/XR wrist RT min 3V IMPRESSION: Automatic deformities without acute fracture or dislocation. Electronically signed by: Bishnu Malone MD 11/07/2024 01:15 PM EDT
--- OUTSIDE RECORDS SUMMARY | 2024-11-07 08:56 | XMS_ITS | Encounter Summary ---
Author Organization [facility] Address [address] [place] [phone] Care Team Providers Care Community Service Specialist Name Role Phone Marianna Amador MD Primary Care Provider Encounter Details Date Type Department Care Team (Late st Contact Info) Description 08/31/2024 Lab Requisition [facility] - Main Lab [address] [facility] [place] [address] Genna Camilo MD [address] [place] [phone] Encounter for other general examination Social History [...] K/mcL LAB HEMETOLOGY METHOD 08/31/2024 11:09 AM [facility] LAB RBC 4.10 3.80 - 4.80 M/mcL LAB HEMETOLOGY METHOD 08/31/2024 11:09 AM [facility] LAB Hemoglobin 12.3 11.5 - 16.0 g/dL LAB HEMETOLOGY METHOD 08/31/2024 11:09 AM [facility] LAB Hematocrit 37.8 35.0 - 47.0 % LAB HEMETOLOGY METHOD 08/31/2024 11:09 AM [facility] LAB MCV 92.2 79.0 - 98.0 FL LAB HEMETOLOGY METHOD 08/31/2024 11:09 AM [facility] LAB MCH 30.0 27.0 - 32.0 pcg LAB HEMETOLOGY METHOD 08/31/2024 11:09 AM [facility] LAB MCHC 32.5 32.0 - 37.0 g/dL LAB HEMETOLOGY METHOD 08/31/2024 11:09 AM [facility] LAB RDW 13.8 11.0 - 15.0 % LAB HEMETOLOGY METHOD 08/31/2024 11:09 AM [facility] LAB Platelets 387 130 - 400 K/mcL LAB HEMETOLOGY METHOD 08/31/2024 11:09 AM [facility] LAB MPV 8.8 7.0 - 11.0 FL LAB HEMETOLOGY METHOD 08/31/2024 11:09 AM [facility] LAB NRBC 0.0 <1.0 % LAB HEMETOLOGY METHOD 08/31/2024 11:09 AM [facility] LAB NRBC Absolute 0.00 <0.10 K/mcL LAB HEMETOLOGY METHOD 08/31/2024 11:09 AM [facility] LAB Neutrophils Relative 47.0 % LAB HEMETOLOGY METHOD 08/31/2024 11:09 AM [facility] LAB Lymphocytes Relative 38.9 % LAB HEMETOLOGY METHOD 08/31/2024 11:09 AM [facility] LAB Monocytes Relative 10.7 % LAB HEMETOLOGY METHOD 08/31/2024 11:09 AM [facility] LAB Eosinophils Relative 2.2 % LAB HEMETOLOGY METHOD 08/31/2024 11:09 AM [facility] LAB Basophils Relative 0.9 % LAB HEMETOLOGY METHOD 08/31/2024 11:09 AM [facility] LAB Immature Granulocytes Relative 0.3 % LAB HEMETOLOGY METHOD 08/31/2024 11:09 AM [facility] LAB Neutrophils Absolute 3.24 1.50 - 7.00 K/mcL LAB HEMETOLOGY METHOD 08/31/2024 11:09 AM [facility] LAB Lymphocytes Absolute 2.68 1.00 - 5.00 K/mcL LAB HEMETOLOGY METHOD 08/31/2024 11:09 AM [facility] LAB Monocytes Absolute 0.74 0.20 - 1.00 K/mcL LAB HEMETOLOGY METHOD 08/31/2024 11:09 AM [facility] LAB Eosinophils Absolute 0.15 0.00 - 0.50 K/mcL LAB HEMETOLOGY METHOD 08/31/2024 11:09 AM [facility] LAB Basophils Absolute 0.06 0.00 - 0.20 K/mcL LAB HEMETOLOGY METHOD 08/31/2024 11:09 AM [facility] LAB Immature Granulocytes Absolute 0.02 0.00 - 0.03 K/mcL LAB HEMETOLOGY METHOD 08/31/2024 11:09 AM [facility] LAB Blood Venous blood specimen / Unknown Venipuncture / Unknown 08/31/2024 5:56 AM EDT 08/31/2024 10:27 AM EDT us Genna Camilo MD LAB BLOOD ORDERABLES Final Resu lt Performing Organization Address [facility]/ZIP Co de Phone Number [facility] LAB [address] [place] [address], [place] [phone] * Magnesium (08/31/2024 5:56 AM EDT) Pathologist [facility] Magnesium 2.4 1.9 - 2.6 mg/dL LAB CHEMISTRY METHOD 08/31/2024 12:02 PM EDT [facility] Blood Venous blood specimen / Unknown Venipuncture / Unknown 08/31/2024 5:56 AM EDT 08/31/2024 10:27 AM EDT us Genna Camilo MD LAB BLOOD ORDERABLES Final Resu lt Performing Organization Address City/[facility]/ZIP Co de Phone Number [facility] [address] [place] [address], [place] [phone] * (ABNORMAL) Comprehensive metabolic panel (08/31/2024 5:56 AM EDT) [facility] Sodium 135 133 - 145 mmol/L LAB CHEMISTRY METHOD 08/31/2024 12:02 PM EDT [facility] Potassium 4.1 3.5 - 5.5 mmol/L LAB CHEMISTRY METHOD 08/31/2024 12:02 PM EDT [facility] LAB Chloride 100 96 - 110 mmol/L LAB CHEMISTRY METHOD 08/31/2024 12:02 PM EDT [facility] LAB CO2 26 21 - 32 mmol/L LAB CHEMISTRY METHOD 08/31/2024 12:02 PM EDT [facility] LAB Anion Gap 9 3 - 11 LAB CHEMISTRY METHOD 08/31/2024 12:02 PM EDT [facility] LAB Glucose 74 70 - 100 mg/dL LAB CHEMISTRY METHOD 08/31/2024 12:02 PM [facility] LAB BUN 9 5 - 25 mg/dL LAB CHEMISTRY METHOD 08/31/2024 12:02 PM [facility] LAB Creatinine 0.63 0.50 - 1.10 mg/dL LAB CHEMISTRY METHOD 08/31/2024 12:02 PM [facility] LAB eGFR 88 >=60 mL/min/1. 73m2 LAB CHEMISTRY METHOD 08/31/2024 12:02 PM [facility] LAB Comment:Calculation based on the Chronic Kidney Disease Epidemiology Collaboration (CKD-EPI) equation refit without adjustment for race. BUN/Creatinine Ratio 14.3 LAB CHEMISTRY METHOD 08/31/2024 12:02 PM [facility] LAB Calcium 8.9 8.5 - 10.5 mg/dL LAB CHEMISTRY METHOD 08/31/2024 12:02 [facility] LAB AST (SGOT) 15 10 - 42 unit/L LAB CHEMISTRY METHOD 08/31/2024 12:02 [facility] LAB ALT (SGPT) 22 10 - 60 unit/L LAB CHEMISTRY METHOD 08/31/2024 12:02 PM [facility] LAB Alkaline Phosphatase 74 42 - 121 unit/L LAB CHEMISTRY METHOD 08/31/2024 12:02 [facility] LAB Total Protein 5.9(L) 6.0 - 8.0 g/dL LAB CHEMISTRY METHOD 08/31/2024 12:02 [facility] LAB Albumin 3.3 3.2 - 5.0 g/dL LAB CHEMISTRY METHOD 08/31/2024 12:02 PM [facility] Total Bilirubin 0.4 0.0 - 1.4 mg/dL LAB CHEMISTRY METHOD 08/31/2024 12:02 PM [facility] Blood Venous blood specimen / Unknown Venipuncture / Unknown 08/31/2024 5:56 AM EDT 08/31/2024 10:27 AM EDT us Genna Camilo MD LAB BLOOD ORDERABLES Final Resu lt [facility] ([facility]) [facility] [address] [place] [address], documented in this encounter Visit Diagnoses Diagnosis Encounter for other general examination documented in this encounter Care Teams Community Service Specialist Relationship Specialty Start Date End Date Marianna Amador MD [address] [place] [address] PCP - General Internal Medicine 10/29/11 documented as of this encounter
--- OUTSIDE RECORDS SUMMARY | 2024-11-07 08:56 | XMS_ITS | Clinical Summary ---
Author Organization [facility] Address [address] [place] [address] Phone Care Team Providers Care Medical Management Specialist Name Role Phone Marianna Amador MD Primary Care Provider Encounters Date Type Department Care Team Description 10/10/2024 Lab Requisition [facility] [address] [place] [phone] Genna Camilo MD Essential (primary) hypertension 09/11/2024 Lab Requisition [facility] [address] [place] [address] Kristin Chun PA Encounter for other general examination 09/07/2024 Lab Requisition [facility] Lab [address] [place] [address] Kristin Chun PA Encounter for other general examination 09/04/2024 Lab Requisition [facility] Lab [address] [place] [address] Genna Camilo MD Encounter for other general examination 08/31/2024 Lab Requisition [facility] [address] [place] [phone] Genna Camilo MD Encounter for other general examination from Last 3 Months Medical History Medical History Date Comments HTN (hypertension) 11/12/2011 DX:HTN (hyper tension) Historical Medical DX 11/12/2011 DX:Hyperli pidemia LDL goal < 70 Coronary atherosclerosis of unspecified type of vessel, [place] or graft 11/12/2011 DX:Coronary atherosclerosis of unspecified type of vessel, [place] or graft 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 11/12/2011 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 Family History Medical History Relation Name Comments Other: scd Father Heart attack Mother fatal Other: pvd Sister 1 during clayton rajani Heart attack Sister 2 fatal Relation Name Status Comments Father Mother Sister 1 Sister 2 Sister 3 Social History Tobacco Use Types Packs/Day Years Used Date Smoking Tobacco: Former Alcohol Use Standard Drinks/Week Comments Not Asked 0 (1 standard drink = 0.6 oz pur e alcohol) Comments Unknown Sex and Gender Information Value Date Recorded Sex Assigned at Not on file Legal Sex Female 12:37 PM EST Gender Identity Not on file Sexual Orientation Not on file Obstetrics History Plan of Treatment Health Maintenance Due Date Last Done Comments DTaP,Tdap,and Td Vaccines (1 - Tdap) 1959 Pneumococcal Vaccine: 50+ Years (1 of 1 - PCV) 07/24/1991 Zoster Vaccines (1 of 2) 07/24/1991 RSV Immunization Adult Patients (1 - 1-dose 75+ series) 2016 COVID-19 Vaccine ( - season) 2023 Depression Screening 03/15/2024 Cholesterol Screening (Lipid Panel) 08/31/2024 Falls Risk Assessment 08/31/2024 Medicare Annual Wellness Visit 08/31/2024 Osteoporosis Screening (Bone Density Screening) 08/31/2024 Social Influencers of Health Screening 08/31/2024 Influenza Vaccine (#1) 2024 Hypertension/CHF/CAD Annual BMP Blood Test 10/10/2025 10/10/2024, 09/11/2024, 09/07/2024, Additional history exists HIB Vaccines Aged Out No longer eligi ble based on patient's age to complete this topic HPV Vaccines Aged Out No longer eligi ble based on patient's age to complete this topic Hepatitis A Vaccines Aged Out No long er eligible based on patient's age to complete this topic Hepatitis B Vaccines Aged Out No long er eligible based on patient's age to complete this topic IPV Vaccines Aged Out No longer eligi ble based on patient's age to complete this topic MMR Vaccines Aged Out No longer eligi ble based on patient's age to complete this topic Meningococcal ACWY Vaccine Aged Out N o longer eligible based on patient's age to complete this topic Meningococcal B Vaccine Aged Out No l onger eligible based on patient's age to complete this topic RSV Immunization Patients Under 20 months Aged Out No longer eligible based on patient's age to complete this topic Varicella Vaccines Aged Out No longer eligible based on patient's age to complete this topic Procedures Procedure Name Priority Date/Time Associated Diagnosis Comments BASIC METABOLIC PANEL Routine 10/10/2024 5:10 AM EDT Essential (primary) hypertension COMPLETE BLOOD COUNT Routine 10/10/2024 5:10 AM EDT Essential (primary) hypertension COMPLETE BLOOD COUNT Routine 09/11/2024 5:34 AM EDT Encounter for other general examination COMPREHENSIVE METABOLIC PANEL Routine 09/11/2024 5:34 AM EDT Encounter for other general examination COMPLETE BLOOD COUNT Routine 09/07/2024 5:54 AM EDT Encounter for other general examination COMPREHENSIVE METABOLIC PANEL Routine 09/07/2024 5:54 AM EDT Encounter for other general examination COMPLETE BLOOD COUNT Routine 09/04/2024 4:43 AM EDT Encounter for other general examination COMPREHENSIVE METABOLIC PANEL Routine 09/04/2024 4:43 AM EDT Encounter for other general examination CBC WITH AUTO DIFFERENTIAL Routine 08/31/2024 5:56 AM EDT Encounter for other general examination MAGNESIUM Routine 08/31/2024 5:56 AM EDT Encounter for other general examination CBC AND DIFFERENTIAL Routine 08/31/2024 5:56 AM EDT Encounter for other general examination COMPREHENSIVE METABOLIC PANEL Routine 08/31/2024 5:56 AM EDT Encounter for other general examination from Last 3 Months Results * (ABNORMAL) Complete blood count (10/10/2024 5:10 AM EDT) Only the most recent of4 resultswithin the time period is included. [facility] WBC 7.5 4.8 - 10.8 K/mcL LAB HEMETOLOGY METHOD 10/10/2024 7:05 AM [facility] LAB RBC 3.80 3.80 - 4.80 M/mcL LAB HEMETOLOGY METHOD 10/10/2024 7:05 AM [facility] LAB Hemoglobin 11.3(L) 11.5 - 16.0 g/dL LAB HEMETOLOGY METHOD 10/10/2024 7:05 AM [facility] LAB Hematocrit 34.3(L) 35.0 - 47.0 % LAB HEMETOLOGY METHOD 10/10/2024 7:05 AM [facility] LAB MCV 90.5 79.0 - 98.0 FL LAB HEMETOLOGY METHOD 10/10/2024 7:05 AM [facility] LAB MCH 29.8 27.0 - 32.0 pcg LAB HEMETOLOGY METHOD 10/10/2024 7:05 AM [facility] LAB MCHC 32.9 32.0 - 37.0 g/dL LAB HEMETOLOGY METHOD 10/10/2024 7:05 AM [facility] LAB RDW 13.5 11.0 - 15.0 % LAB HEMETOLOGY METHOD 10/10/2024 7:05 AM [facility] LAB Platelets 501(H) 130 - 400 K/[facility] LAB HEMETOLOGY METHOD 10/10/2024 7:05 AM [facility] LAB MPV 9.0 7.0 - 11.0 FL LAB HEMETOLOGY METHOD 10/10/2024 7:05 AM [facility] LAB NRBC 0.0 <1.0 % LAB HEMETOLOGY METHOD 10/10/2024 7:05 AM [facility] LAB NRBC Absolute 0.00 <0.10 K/mcL LAB HEMETOLOGY METHOD 10/10/2024 7:05 AM [facility] LAB Blood Venous blood specimen / Unknown Venipuncture / Unknown 10/10/2024 5:10 AM EDT 10/10/2024 6:37 AM EDT us Genna Camilo MD LAB BLOOD ORDERABLES Final Resu lt [facility] [address] [place] [address], [place] [phone] * (ABNORMAL) Basic metabolic panel (10/10/2024 5:10 AM EDT) Sodium 135 133 - 145 mmol/L LAB CHEMISTRY METHOD 10/10/2024 8:47 AM [facility] LAB Potassium 3.8 3.5 - 5.5 mmol/L LAB CHEMISTRY METHOD 10/10/2024 8:47 AM [facility] LAB Chloride 100 96 - 110 mmol/L LAB CHEMISTRY METHOD 10/10/2024 8:47 AM [facility] LAB CO2 27 21 - 32 mmol/L LAB CHEMISTRY METHOD 10/10/2024 8:47 AM [facility] LAB Anion Gap 8 3 - 11 LAB CHEMISTRY METHOD 10/10/2024 8:47 AM [facility] LAB Glucose 97 70 - 100 mg/dL LAB CHEMISTRY METHOD 10/10/2024 8:47 AM [facility] LAB BUN 16 5 - 25 mg/dL LAB CHEMISTRY METHOD 10/10/2024 8:47 AM [facility] LAB Creatinine 0.97 0.50 - 1.10 mg/dL LAB CHEMISTRY METHOD 10/10/2024 8:47 AM [facility] LAB eGFR 58(L) >=60 mL/min/1. 73m2 LAB CHEMISTRY METHOD 10/10/2024 8:47 AM [facility] LAB Comment:Calculation based on the Chronic Kidney Disease Epidemiology Collaboration (CKD-EPI) equation refit without adjustment for race. BUN/Creatinine Ratio 16.5 LAB CHEMISTRY METHOD 10/10/2024 8:47 AM T [facility] LAB Calcium 9.3 8.5 - 10.5 mg/dL LAB CHEMISTRY METHOD 10/10/2024 8:47 AM [facility] LAB Blood Venous blood specimen / Unknown Venipuncture / Unknown 10/10/2024 5:10 AM EDT 10/10/2024 6:37 AM EDT us Genna Camilo MD LAB BLOOD ORDERABLES Final Resu lt [facility] [address] [place] [address], [place] [phone] * (ABNORMAL) Comprehensive metabolic panel (09/11/2024 5:34 AM EDT) Only the most recent of4 resultswithin the time period is included. Sodium 139 133 - 145 mmol/L LAB CHEMISTRY METHOD 09/11/2024 11:19 AM [facility] LAB Potassium 4.3 3.5 - 5.5 mmol/L LAB CHEMISTRY METHOD 09/11/2024 11:19 AM [facility] LAB Chloride 103 96 - 110 mmol/L LAB CHEMISTRY METHOD 09/11/2024 11:19 AM [facility] LAB CO2 27 21 - 32 mmol/L LAB CHEMISTRY METHOD 09/11/2024 11:19 AM [facility] LAB Anion Gap 9 3 - 11 LAB CHEMISTRY METHOD 09/11/2024 11:19 AM [facility] LAB Glucose 73 70 - 100 mg/dL LAB CHEMISTRY METHOD 09/11/2024 11:19 AM [facility] LAB BUN 8 5 - 25 mg/dL LAB CHEMISTRY METHOD 09/11/2024 11:19 AM [facility] LAB Creatinine 0.48(L) 0.50 - 1.10 mg/dL LAB CHEMISTRY METHOD 09/11/2024 11:19 AM [facility] LAB eGFR 94 >=60 mL/min/1. 73m2 LAB CHEMISTRY METHOD 09/11/2024 11:19 AM [facility] LAB Comment:Calculation based on the Chronic Kidney Disease Epidemiology Collaboration (CKD-EPI) equation refit without adjustment for race. BUN/Creatinine Ratio 16.7 LAB CHEMISTRY METHOD 09/11/2024 11:19 AM [facility] LAB Calcium 8.4(L) 8.5 - 10.5 mg/dL LAB CHEMISTRY METHOD 09/11/2024 11:19 AM [facility] LAB AST (SGOT) 15 10 - 42 unit/L LAB CHEMISTRY METHOD 09/11/2024 11:19 AM [facility] LAB ALT (SGPT) 44 10 - 60 unit/L LAB CHEMISTRY METHOD 09/11/2024 11:19 AM [facility] LAB Alkaline Phosphatase 87 42 - 121 unit/L LAB CHEMISTRY METHOD 09/11/2024 11:19 AM [facility] LAB Total Protein 5.9(L) 6.0 - 8.0 g/dL LAB CHEMISTRY METHOD 09/11/2024 11:19 AM [facility] LAB Albumin 3.1(L) 3.2 - 5.0 g/dL LAB CHEMISTRY METHOD 09/11/2024 11:19 AM [facility] LAB Total Bilirubin 0.2 0.0 - 1.4 mg/dL LAB CHEMISTRY METHOD 09/11/2024 11:19 AM [facility] LAB Blood Venous blood specimen / Unknown Venipuncture / Unknown 09/11/2024 5:34 AM EDT 09/11/2024 10:10 AM EDT us Kristin RACHEL LAB BLOOD ORDERABLES Final Re sult [facility] [address] [place] [address], [place] [phone] * CBC auto differential (08/31/2024 5:56 AM EDT) [facility] WBC 6.9 4.8 - 10.8 K/mcL LAB HEMETOLOGY METHOD 08/31/2024 11:09 AM EDT [facility] RBC 4.10 3.80 - 4.80 M/mcL LAB HEMETOLOGY METHOD 08/31/2024 11:09 AM EDT [facility] Hemoglobin 12.3 11.5 - 16.0 g/dL LAB HEMETOLOGY [facility] Hematocrit 37.8 35.0 - 47.0 % LAB HEMETOLOGY METHOD 08/31/2024 11:[facility] MCV 92.2 79.0 - 98.0 FL LAB HEMETOLOGY METHOD 08/31/2024 11:[facility] MCH 30.0 27.0 - 32.0 pcg LAB HEMETOLOGY METHOD 08/31/2024 11:09 AM [facility] LAB MCHC 32.5 32.0 - 37.0 g/dL LAB HEMETOLOGY METHOD 08/31/2024 11:09 AM [facility] RDW 13.8 11.0 - 15.0 % LAB HEMETOLOGY METHOD 08/31/2024 11:[facility] Platelets 387 130 - 400 K/mcL LAB HEMETOLOGY METHOD 08/31/2024 11:09 AM EDT [facility] MPV 8.8 7.0 - 11.0 FL LAB HEMETOLOGY METHOD 08/31/2024 11:[facility] NRBC 0.0 <1.0 % LAB HEMETOLOGY METHOD 08/31/2024 11:09 AM [facility] LAB NRBC Absolute 0.00 <0.10 K/mcL LAB HEMETOLOGY METHOD 08/31/2024 11:09 AM [facility] Neutrophils Relative 47.0 % LAB HEMETOLOGY METHOD 08/31/2024 11:09 AM [facility] Lymphocytes Relative 38.9 % LAB HEMETOLOGY METHOD 08/31/2024 11:09 AM [facility] Monocytes Relative 10.7 % LAB HEMETOLOGY METHOD 08/31/2024 11:09 AM [facility] Eosinophils Relative 2.2 % LAB HEMETOLOGY METHOD 08/31/2024 11:09 AM [facility] Basophils Relative 0.9 % LAB HEMETOLOGY METHOD 08/31/2024 11:09 AM [facility] Immature Granulocytes Relative 0.3 % LAB HEMETOLOGY METHOD 08/31/2024 11:09 AM [facility] Neutrophils Absolute 3.24 1.50 - 7.00 K/mcL LAB HEMETOLOGY METHOD 08/31/2024 11:09 AM [facility] Lymphocytes Absolute 2.68 1.00 - 5.00 K/mcL LAB HEMETOLOGY METHOD 08/31/2024 11:09 AM [facility] Monocytes Absolute 0.74 0.20 - 1.00 K/mcL LAB HEMETOLOGY METHOD 08/31/2024 11:09 AM [facility] LAB Eosinophils Absolute 0.15 0.00 - 0.50 K/mcL LAB HEMETOLOGY METHOD 08/31/2024 11:09 AM [facility] Basophils Absolute 0.06 0.00 - 0.20 K/mcL LAB HEMETOLOGY METHOD 08/31/2024 11:09 AM [facility] LAB Immature Granulocytes Absolute 0.02 0.00 - 0.03 K/mcL LAB HEMETOLOGY METHOD 08/31/2024 11:09 AM EDT [facility] Blood Venous blood specimen / Unknown Venipuncture / Unknown 08/31/2024 5:56 AM EDT 08/31/2024 10:27 AM EDT Genna Camilo MD LAB BLOOD ORDERABLES Final Resu lt [facility] [address] [place] [address], [place] [phone] * Magnesium (08/31/2024 5:56 AM EDT) Magnesium 2.4 1.9 - 2.6 mg/dL LAB CHEMISTRY METHOD 08/31/2024 12:02 PM EDT [facility] Blood Venous blood specimen / Unknown Venipuncture / Unknown 08/31/2024 5:56 AM EDT 08/31/2024 10:27 AM EDT Genna Camilo MD LAB BLOOD ORDERABLES Final Resu lt Performing Organization Address City/[facility]/ZIP Co de Phone Number [facility] [address] [place] [address], [place] [phone] from Last 3 Months Insurance [facility] [employer] Care Teams Medical Management Specialist Relationship Specialty Start Date End Date Marianna Amador MD [address] [place] [address] PCP - General Internal Medicine 10/29/11
--- OUTSIDE RECORDS SUMMARY | 2024-11-07 08:56 | XMS_ITS | Encounter Summary ---
Author Organization [facility] Address [address] [place] [phone] Care Team Providers Care Computer Applications Developer Name Role Phone Marianna Amador MD Primary Care Provider [phone] Encounter Details Date Type Department Care Team (Late st Contact Info) Description 09/04/2024 Lab Requisition [facility] - Main Lab [address] [place] [address] Genna Camilo MD [address] [place] [phone] Encounter for other general examination Social History [...] AM EDT) WBC 6.9 4.8 - 10.8 K/[facility] LAB HEMETOLOGY METHOD 09/04/2024 12:11 PM EDT [facility] RBC 4.00 3.80 - 4.80 M/mcL LAB HEMETOLOGY METHOD 09/04/2024 12:11 PM [facility] Hemoglobin 12.1 11.5 - 16.0 g/dL LAB HEMETOLOGY METHOD 09/04/2024 12:11 PM [facility] LAB Hematocrit 36.6 35.0 - 47.0 % LAB HEMETOLOGY METHOD 09/04/2024 12:11 PM [facility] MCV 90.6 79.0 - 98.0 FL LAB HEMETOLOGY METHOD 09/04/2024 12:11 PM [facility] MCH 30.0 27.0 - 32.0 pcg LAB HEMETOLOGY METHOD 09/04/2024 12:11 PM [facility] MCHC 33.1 32.0 - 37.0 g/dL LAB HEMETOLOGY METHOD 09/04/2024 12:11 PM [facility] RDW 13.9 11.0 - 15.0 % LAB HEMETOLOGY METHOD 09/04/2024 12:11 PM [facility] Platelets 364 130 - 400 K/mcL LAB HEMETOLOGY METHOD 09/04/2024 12:11 PM [facility] MPV 8.7 7.0 - 11.0 FL LAB HEMETOLOGY METHOD 09/04/2024 12:11 PM [facility] NRBC 0.0 <1.0 % LAB HEMETOLOGY METHOD 09/04/2024 12:11 PM [facility] NRBC Absolute 0.00 <0.10 K/mcL LAB HEMETOLOGY METHOD 09/04/2024 12:11 PM [facility] Blood Venous blood specimen / Unknown Venipuncture / Unknown 09/04/2024 4:43 AM EDT 09/04/2024 10:57 AM EDT us Genna Camilo MD LAB BLOOD ORDERABLES Final Resu lt [facility] [address] [place] [address], * (ABNORMAL) Comprehensive metabolic panel (09/04/2024 4:43 AM EDT) Sodium 130(L) 133 - 145 mmol/L LAB CHEMISTRY METHOD 09/04/2024 4:16 PM [facility] Potassium 3.9 3.5 - 5.5 mmol/L LAB CHEMISTRY METHOD 09/04/2024 4:16 PM [facility] Chloride 93(L) 96 - 110 mmol/L LAB CHEMISTRY METHOD 09/04/2024 4:16 PM [facility] CO2 27 21 - 32 mmol/L LAB CHEMISTRY METHOD 09/04/2024 4:16 PM [facility] Anion Gap 10 3 - 11 LAB CHEMISTRY METHOD 09/04/2024 4:16 PM [facility] Glucose 89 70 - 100 mg/dL LAB CHEMISTRY METHOD 09/04/2024 4:16 PM [facility] BUN 11 5 - 25 mg/dL LAB CHEMISTRY METHOD 09/04/2024 4:16 PM [facility] Creatinine 0.70 0.50 - 1.10 mg/dL LAB CHEMISTRY METHOD 09/04/2024 4:16 PM [facility] eGFR 86 >=60 mL/min/1. 73m2 LAB CHEMISTRY METHOD 09/04/2024 4:16 PM [facility] Comment:Calculation based on the Chronic Kidney Disease Epidemiology Collaboration (CKD-EPI) equation refit without adjustment for race. BUN/Creatinine Ratio 15.7 LAB CHEMISTRY METHOD 09/04/2024 4:16 PM [facility] Calcium 9.3 8.5 - 10.5 mg/dL LAB CHEMISTRY METHOD 09/04/2024 4:16 PM EDT [facility] AST (SGOT) 13 10 - 42 unit/L LAB CHEMISTRY METHOD 09/04/2024 4:16 PM EDT [facility] ALT (SGPT) 24 10 - 60 unit/L LAB CHEMISTRY METHOD 09/04/2024 4:16 PM EDT [facility] Alkaline Phosphatase 74 42 - 121 unit/L LAB CHEMISTRY METHOD 09/04/2024 4:16 PM EDT [facility] Total Protein 6.0 6.0 - 8.0 g/dL LAB CHEMISTRY METHOD 09/04/2024 4:16 PM EDT [facility] Albumin 3.4 3.2 - 5.0 g/dL LAB CHEMISTRY METHOD 09/04/2024 4:16 PM EDT [facility] Total Bilirubin 0.5 0.0 - 1.4 mg/dL LAB CHEMISTRY METHOD 09/04/2024 4:16 PM EDT [facility] Blood Venous blood specimen / Unknown Venipuncture / Unknown 09/04/2024 4:43 AM EDT 09/04/2024 10:57 AM EDT us Genna Camilo MD LAB BLOOD ORDERABLES Final Resu lt [facility] [address] [place] [address], documented in this encounter Visit Diagnoses Diagnosis Encounter for other general examination documented in this encounter Care Teams Computer Applications Developer Relationship Specialty Start Date End Date Marianna Amador MD [address] [place] [address] PCP - General Internal Medicine 10/29/11 documented as of this encounter
--- OUTSIDE RECORDS SUMMARY | 2024-11-07 08:56 | XMS_ITS | Clinical Summary ---
Author Organization [facility] Address [address] [place] [address] Phone Care Team Providers Care Smooth Stucco Resurfacer Name Role Phone Unavailable Primary Care Provider [...] age to complete this topic Insurance Medicare [employer] Medicare [employer]
--- OUTSIDE RECORDS SUMMARY | 2024-11-07 08:56 | XMS_ITS | Encounter Summary ---
Author Organization [facility] Address [id number] [place] [phone] Care Team Providers Care Insurance Verification Representative Name Role Phone Marianna Amador MD Primary Care Provider Encounter Details Date Type Department Care Team (Late st Contact Info) Description 09/07/2024 Lab Requisition [facility] - Main Lab [address] [place] [address] Kristin Chun PA [address] [place] [address] Encounter for other general examination Social History [...] Associated Diagnosis Comments COMPLETE BLOOD COUNT Routine 09/07/2024 5:54 AM EDT Encounter for other general examination COMPREHENSIVE METABOLIC PANEL Routine 09/07/2024 5:54 AM EDT Encounter for other general examination documented in this encounter Results * Complete blood count (09/07/2024 5:54 AM EDT) WBC 8.6 4.8 - 10.8 K/[facility] LAB HEMETOLOGY METHOD 09/07/2024 9:05 AM EDT [facility] RBC 3.90 3.80 - 4.80 M/[facility] LAB HEMETOLOGY METHOD 09/07/2024 9:05 AM [facility] Hemoglobin 11.8 11.5 - 16.0 g/dL LAB HEMETOLOGY METHOD 09/07/2024 9:05 AM [facility] LAB Hematocrit 35.9 35.0 - 47.0 % LAB HEMETOLOGY METHOD 09/07/2024 9:05 AM [facility] LAB MCV 92.8 79.0 - 98.0 FL LAB HEMETOLOGY METHOD 09/07/2024 9:05 AM [facility] LAB MCH 30.5 27.0 - 32.0 pcg LAB HEMETOLOGY METHOD 09/07/2024 9:05 AM [facility] LAB MCHC 32.9 32.0 - 37.0 g/dL LAB HEMETOLOGY METHOD 09/07/2024 9:05 AM [facility] LAB RDW 13.9 11.0 - 15.0 % LAB HEMETOLOGY METHOD 09/07/2024 9:05 AM [facility] LAB Platelets 364 130 - 400 K/mcL LAB HEMETOLOGY METHOD 09/07/2024 9:05 AM [facility] LAB MPV 9.3 7.0 - 11.0 FL LAB HEMETOLOGY METHOD 09/07/2024 9:05 AM [facility] LAB NRBC 0.0 <1.0 % LAB HEMETOLOGY METHOD 09/07/2024 9:05 AM [facility] NRBC Absolute 0.00 <0.10 K/mcL LAB HEMETOLOGY METHOD 09/07/2024 9:05 AM [facility] Blood Venous blood specimen / Unknown Venipuncture / Unknown 09/07/2024 5:54 AM EDT 09/07/2024 7:34 AM EDT us Kristin RACHEL LAB BLOOD ORDERABLES Final Re sult [facility] [address] [place] [address], * Comprehensive metabolic panel (09/07/2024 5:54 AM EDT) Sodium 133 133 - 145 mmol/L LAB CHEMISTRY METHOD 09/07/2024 9:23 AM [facility] Potassium 4.1 3.5 - 5.5 mmol/L LAB CHEMISTRY METHOD 09/07/2024 9:23 AM [facility] Chloride 97 96 - 110 mmol/L LAB CHEMISTRY METHOD 09/07/2024 9:23 AM [facility] CO2 30 21 - 32 mmol/L LAB CHEMISTRY METHOD 09/07/2024 9:23 AM [facility] Anion Gap 6 3 - 11 LAB CHEMISTRY METHOD 09/07/2024 9:23 AM [facility] Glucose 83 70 - 100 mg/dL LAB CHEMISTRY METHOD 09/07/2024 9:23 AM [facility] BUN 9 5 - 25 mg/dL LAB CHEMISTRY METHOD 09/07/2024 9:23 AM [facility] Creatinine 0.57 0.50 - 1.10 mg/dL LAB CHEMISTRY METHOD 09/07/2024 9:23 AM [facility] LAB eGFR 90 >=60 mL/min/1. 73m2 LAB CHEMISTRY METHOD 09/07/2024 9:23 AM [facility] Comment:Calculation based on the Chronic Kidney Disease Epidemiology Collaboration (CKD-EPI) equation refit without adjustment for race. BUN/Creatinine Ratio 15.8 LAB CHEMISTRY METHOD 09/07/2024 9:23 AM [facility] Calcium 8.8 8.5 - 10.5 mg/dL LAB CHEMISTRY METHOD 09/07/2024 9:23 AM [facility] AST (SGOT) 27 10 - 42 unit/L LAB CHEMISTRY METHOD 09/07/2024 9:23 AM EDT [facility] ALT (SGPT) 44 10 - 60 unit/L LAB CHEMISTRY METHOD 09/07/2024 9:23 AM EDT [facility] Alkaline Phosphatase 83 42 - 121 unit/L LAB CHEMISTRY METHOD 09/07/2024 9:23 AM EDT [facility] Total Protein 6.0 6.0 - 8.0 g/dL LAB CHEMISTRY METHOD 09/07/2024 9:23 AM EDT [facility] Albumin 3.3 3.2 - 5.0 g/dL LAB CHEMISTRY METHOD 09/07/2024 9:23 AM [facility] Total Bilirubin 0.4 0.0 - 1.4 mg/dL LAB CHEMISTRY METHOD 09/07/2024 9:23 AM EDT [facility] Blood Venous blood specimen / Unknown Venipuncture / Unknown 09/07/2024 5:54 AM EDT 09/07/2024 7:34 AM EDT us Kristin RACHEL LAB BLOOD ORDERABLES Final Re sult [facility] [address] [place] [address], documented in this encounter Visit Diagnoses Diagnosis Encounter for other general examination documented in this encounter Care Teams Insurance Verification Representative Relationship Specialty Start Date End Date Marianna Amador MD [address] [place] [address] PCP - General Internal Medicine 10/29/11 documented as of this encounter
--- OUTSIDE RECORDS SUMMARY | 2024-11-07 08:56 | XMS_ITS | Encounter Summary ---
Author Organization [facility] Address [id number] [place] [id number] Care Team Providers Care Knotting Machine Operator Name Role Phone Marianna Amador MD Primary Care Provider Encounter Details Date Type Department Care Team (Late st Contact Info) Description 10/10/2024 Lab Requisition [facility] - Main Lab [address] [place] [address] Genna Camilo MD [address] [place] [id number] Essential (primary) hypertension Social History Tobacco Use Types Packs/Day Years [...] Associated Diagnosis Comments COMPLETE BLOOD COUNT Routine 10/10/2024 5:10 AM EDT Essential (primary) hypertension BASIC METABOLIC PANEL Routine 10/10/2024 5:10 AM EDT Essential (primary) hypertension documented in this encounter Results * (ABNORMAL) Basic metabolic panel (10/10/2024 5:10 AM EDT) Sodium 135 133 - 145 mmol/L LAB CHEMISTRY METHOD 10/10/2024 8:47 AM EDT [facility] Potassium 3.8 3.5 - 5.5 mmol/L LAB CHEMISTRY METHOD 10/10/2024 8:47 AM [facility] Chloride 100 96 - 110 mmol/L LAB CHEMISTRY METHOD 10/10/2024 8:47 AM [facility] CO2 27 21 - 32 mmol/L LAB CHEMISTRY METHOD 10/10/2024 8:47 AM [facility] Anion Gap 8 3 - 11 LAB CHEMISTRY METHOD 10/10/2024 8:47 AM [facility] Glucose 97 70 - 100 mg/dL LAB CHEMISTRY METHOD 10/10/2024 8:47 AM [facility] BUN 16 5 - 25 mg/dL LAB CHEMISTRY METHOD 10/10/2024 8:47 AM [facility] Creatinine 0.97 0.50 - 1.10 mg/dL LAB CHEMISTRY METHOD 10/10/2024 8:47 AM [facility] eGFR 58(L) >=60 mL/min/1. 73m2 LAB CHEMISTRY METHOD 10/10/2024 8:47 AM [facility] LAB Comment:Calculation based on the Chronic Kidney Disease Epidemiology Collaboration (CKD-EPI) equation refit without adjustment for race. BUN/Creatinine Ratio 16.5 LAB CHEMISTRY METHOD 10/10/2024 8:47 AM [facility] Calcium 9.3 8.5 - 10.5 mg/dL LAB CHEMISTRY METHOD 10/10/2024 8:47 AM [facility] Blood Venous blood specimen / Unknown Venipuncture / Unknown 10/10/2024 5:10 AM EDT 10/10/2024 6:37 AM EDT us Genna Camilo MD LAB BLOOD ORDERABLES Final Resu lt [facility] [address] [place] [address], * (ABNORMAL) Complete blood count (10/10/2024 5:10 AM EDT) [facility] WBC 7.5 4.8 - 10.8 K/mcL LAB HEMETOLOGY METHOD 10/10/2024 7:05 AM [facility] RBC 3.80 3.80 - 4.80 M/mcL LAB HEMETOLOGY METHOD 10/10/2024 7:05 AM [facility] Hemoglobin 11.3(L) 11.5 - 16.0 g/dL LAB HEMETOLOGY METHOD 10/10/2024 7:05 AM [facility] Hematocrit 34.3(L) 35.0 - 47.0 % LAB HEMETOLOGY METHOD 10/10/2024 7:05 AM [facility] MCV 90.5 79.0 - 98.0 FL LAB HEMETOLOGY METHOD 10/10/2024 7:05 AM [facility] MCH 29.8 27.0 - 32.0 pcg LAB HEMETOLOGY METHOD 10/10/2024 7:05 AM [facility] MCHC 32.9 32.0 - 37.0 g/dL LAB HEMETOLOGY METHOD 10/10/2024 7:05 AM [facility] RDW 13.5 11.0 - 15.0 % LAB HEMETOLOGY METHOD 10/10/2024 7:05 AM [facility] Platelets 501(H) 130 - 400 K/mcL LAB HEMETOLOGY METHOD 10/10/2024 7:05 AM [facility] MPV 9.0 7.0 - 11.0 FL LAB HEMETOLOGY METHOD 10/10/2024 7:05 AM [facility] NRBC 0.0 <1.0 % LAB HEMETOLOGY METHOD 10/10/2024 7:05 AM [facility] NRBC Absolute 0.00 <0.10 K/mcL LAB HEMETOLOGY METHOD 10/10/2024 7:05 AM EDT [facility] Blood Venous blood specimen / Unknown Venipuncture / Unknown 10/10/2024 5:10 AM EDT 10/10/2024 6:37 AM EDT us Genna Camilo MD LAB BLOOD ORDERABLES Final Resu lt [facility] [address] [place] [address], documented in this encounter Visit Diagnoses Diagnosis Essential (primary) hypertension Unspecified essential hypertension documented in this encounter Care Teams Knotting Machine Operator Relationship Specialty Start Date End Date Marianna Amador MD [address] [place] [address] PCP - General Internal Medicine 10/29/11 documented as of this encounter
--- OUTSIDE RECORDS SUMMARY | 2024-11-07 08:56 | XMS_ITS | Encounter Summary ---
Author Organization [facility] Address [address] [place] [phone] Care Team Providers Care Water Filterer Helper Name Role Phone Marianna Amador MD Primary Care Provider Encounter Details Date Type Department Care Team (Late st Contact Info) Description 09/11/2024 Lab Requisition [facility] - Main Lab [address] [place] [address] Kristin Chun PA [address] [place] [address] Encounter for other general examination [...] Associated Diagnosis Comments COMPLETE BLOOD COUNT Routine 09/11/2024 5:34 AM EDT Encounter for other general examination COMPREHENSIVE METABOLIC PANEL Routine 09/11/2024 5:34 AM EDT Encounter for other general examination documented in this encounter Results * (ABNORMAL) Complete blood count (09/11/2024 5:34 AM EDT) [facility] Signature WBC 5.8 4.8 - 10.8 K/[facility] LAB HEMETOLOGY METHOD 09/11/2024 10:45 AM EDT [facility] RBC 3.80 3.80 - 4.80 M/mcL LAB HEMETOLOGY METHOD 09/11/2024 10:45 AM T [facility] Hemoglobin 11.5 11.5 - 16.0 g/dL LAB HEMETOLOGY METHOD 09/11/2024 10:45 AM [facility] Hematocrit 35.0 35.0 - 47.0 % LAB HEMETOLOGY METHOD 09/11/2024 10:45 AM [facility] MCV 93.1 79.0 - 98.0 FL LAB HEMETOLOGY METHOD 09/11/2024 10:45 AM [facility] MCH 30.6 27.0 - 32.0 pcg LAB HEMETOLOGY METHOD 09/11/2024 10:45 AM [facility] MCHC 32.9 32.0 - 37.0 g/dL LAB HEMETOLOGY METHOD 09/11/2024 10:45 AM [facility] RDW 14.0 11.0 - 15.0 % LAB HEMETOLOGY METHOD 09/11/2024 10:45 AM [facility] Platelets 425(H) 130 - 400 K/mcL LAB HEMETOLOGY METHOD 09/11/2024 10:45 AM [facility] MPV 9.3 7.0 - 11.0 FL LAB HEMETOLOGY METHOD 09/11/2024 10:45 AM [facility] NRBC 0.0 <1.0 % LAB HEMETOLOGY METHOD 09/11/2024 10:45 AM [facility] NRBC Absolute 0.00 <0.10 K/mcL LAB HEMETOLOGY METHOD 09/11/2024 10:45 AM [facility] Blood Venous blood specimen / Unknown Venipuncture / Unknown 09/11/2024 5:34 AM EDT 09/11/2024 10:10 AM EDT us Kristin RACHEL LAB BLOOD ORDERABLES Final Re sult [facility] [address] [place] [address], * (ABNORMAL) Comprehensive metabolic panel (09/11/2024 5:34 AM EDT) Sodium 139 133 - 145 mmol/L LAB CHEMISTRY METHOD 09/11/2024 11:19 AM [facility] Potassium 4.3 3.5 - 5.5 mmol/L LAB CHEMISTRY METHOD 09/11/2024 11:19 AM [facility] Chloride 103 96 - 110 mmol/L LAB CHEMISTRY METHOD 09/11/2024 11:19 AM [facility] CO2 27 21 - 32 mmol/L LAB CHEMISTRY METHOD 09/11/2024 11:19 AM [facility] Anion Gap 9 3 - 11 LAB CHEMISTRY METHOD 09/11/2024 11:19 AM [facility] Glucose 73 70 - 100 mg/dL LAB CHEMISTRY METHOD 09/11/2024 11:19 AM [facility] BUN 8 5 - 25 mg/dL LAB CHEMISTRY METHOD 09/11/2024 11:19 AM [facility] Creatinine 0.48(L) 0.50 - 1.10 mg/dL LAB CHEMISTRY METHOD 09/11/2024 11:19 AM [facility] eGFR 94 >=60 mL/min/1. 73m2 LAB CHEMISTRY METHOD 09/11/2024 11:19 AM [facility] Comment:Calculation based on the Chronic Kidney Disease Epidemiology Collaboration (CKD-EPI) equation refit without adjustment for race. BUN/Creatinine Ratio 16.7 LAB CHEMISTRY METHOD 09/11/2024 11:19 AM [facility] Calcium 8.4(L) 8.5 - 10.5 mg/dL LAB CHEMISTRY METHOD 09/11/2024 11:19 AM EDT [facility] AST (SGOT) 15 10 - 42 unit/L LAB CHEMISTRY METHOD 09/11/2024 11:19 AM T [facility] ALT (SGPT) 44 10 - 60 unit/L LAB CHEMISTRY METHOD 09/11/2024 11:19 AM [facility] Alkaline Phosphatase 87 42 - 121 unit/L LAB CHEMISTRY METHOD 09/11/2024 11:19 AM T [facility] Total Protein 5.9(L) 6.0 - 8.0 g/dL LAB CHEMISTRY METHOD 09/11/2024 11:19 AM [facility] Albumin 3.1(L) 3.2 - 5.0 g/dL LAB CHEMISTRY METHOD 09/11/2024 11:19 AM [facility] Total Bilirubin 0.2 0.0 - 1.4 mg/dL LAB CHEMISTRY METHOD 09/11/2024 11:19 AM T [facility] Blood Venous blood specimen / Unknown Venipuncture / Unknown 09/11/2024 5:34 AM EDT 09/11/2024 10:10 AM EDT us Kristin RACHEL LAB BLOOD ORDERABLES Final Re sult [facility] [address] [place] [address], documented in this encounter Visit Diagnoses Diagnosis Encounter for other general examination documented in this encounter Care Teams Water Filterer Helper Relationship Specialty Start Date End Date Marianna Amador MD [address] [place] [address] PCP - General Internal Medicine 10/29/11 documented as of this encounter
== END 2024-11-07 08:43 | disposition home or self-care (01) ==
LOC: HO.HOSX 08:42
DX: S52.201D Unspecified fracture of shaft of right ulna, subsequent encounter for closed fracture with routine healing (principal); X58.XXXD Exposure to other specified factors, subsequent encounter
CPT/HCPCS: 73110; 99212

== ENCOUNTER 2024-11-07 13:04 | Outpatient (AMB) | payer MEDICARE, OTHER, SELFPAY ==
[2024-11-07 13:07] VITALS: BMI 25.3
--- NOTE | 2024-11-07 13:07 | MHC.OFFVIS ---
Vital Signs 11/07/24 13:07 Height 5 ft 1 in Weight 134 lb BMI 25.3 Intake Visit Reasons: OV-right ulna fx DOI: 08/30/24-follow up-w/xrays Intake Note: Lina is an 84 year old woman who presents today for follow up status post right ulnar fracture, DOI: 08/30/24. At her last visit, patient was transitioned to a Velcro wrist brace to wear with daytime activities, removing it to work on range of motion. She was reminded to continue her 2 lb weight limit. Patient was advised she should be walking with a denny walker. Patient's son reports she has been wearing the brace however she was not able to use the denny walker as it was too heavy. She is ambulating with the help of a 4 prong cane. Patient denies any pain, numbness, tingling. Accompanied by: Son Allergies Izuhqvp-DDN-WxN Reductase Inhibitor Allergy (Verified 11/07/24 13:14) Unknown melons Allergy (Unknown, Uncoded 11/07/24 13:14) throat sweling HPI HPI OV-right ulna fx DOI: 08/30/24-follow up-w/xrays: Details: Lina is an 84 year old woman who presents today for follow up status post right ulnar fracture, DOI: 08/30/24. At her last visit, patient was transitioned to a Velcro wrist brace to wear with daytime activities, removing it to work on range of motion. She was reminded to continue her 2 lb weight limit. Patient was advised she should be walking with a denny walker. Patient's son reports she has been wearing the brace however she was not able to use the denny walker as it was too heavy. She is ambulating with the help of a 4 prong cane. Patient denies any pain, numbness, tingling. Reports that her range of motion is still limited, but has improved since previous evaluation. [facility] Medical History Myocardial infarct, old HTN (hypertension) Surgical History H/O heart artery stent Social History Household Members: Other Household Members Other:: [facility] Housing: Other Do you presently have visiting nurse or other home services: Yes Alcohol intake: never Patient Tobacco Use Status: Former Tobacco user Advance Directives Date on File: 08/04/23 service: No Sexual orientation: Straight/Heterosexual Review of Systems Const All systems reviewed & are unremarkable except as noted in HPI and below Physical Exam Vital Signs: BMI result Body Mass Index 25.3 Extrem Other: Patient is alert, oriented, and in no acute distress. Neuro: Normal sensation of the tips of all digits of the right hand at this time Vascular: Cap refill brisk Pain: No tenderness to palpation about right distal ulnar shaft of the level of the fracture No pain with range of motion of the right wrist, elbow, digits of the right hand ROM: Patient is able to make a closed fist and extend all digits of the right hand fully Patient has approximately 50 degrees of active flexion, 30-40 degrees of active extension, full pronation, and approximately 70-80 degrees of active supination of the right wrist Patient is able to extend the right elbow fully and is able to flex to approximately 140 degrees without difficulty Skin: No lacerations or abrasions. General: No ecchymosis, erythema, or evidence of infection. Psych: Appears grossly normal Affect normal Attitude cooperative Results Reviewed Results Reviewed: X-rays obtained in the office today and independently reviewed by me, Christopher Yuan PA-C, demonstrate minimally displaced fracture of the right ulnar distal shaft with evidence of callus formation and good bony healing. Assessment & Plan Assessment & Plan (1) Fracture of right ulna, shaft: Code(s): S52.201A - Unspecified fracture of shaft of right ulna, initial encounter for closed fracture Category: Medical Plan 1. Right distal ulnar shaft fracture Date of injury 08/30/2024 Patient appears to be recovering well from her injury Patient is educated about the typical recovery course At this time, patient is provided with a Velcro wrist splint to wear with daytime activities 2 lb weight limit reinforced Patient is advised she should be walking with a forearm walker, prescription sent Patient is advised she should remove the splint to work on range of motion Outpatient referral to OT placed, as she is no longer living at a rehab and has returned home Patient is amenable to this plan Follow-up in 1 month Orders: Orders XR wrist RT min 3V 11/07/24 M25.531 - Pain in right wrist OT Evaluation and Treatment 11/07/24 S52.201A - Unspecified fracture of shaft of right ulna, initial encounter for closed fracture Medications: New walker Forearm walker 1 ea 0RF Coding Level of Care Code Global (21656) Diagnoses Fracture of right ulna, shaft S52.201A
== END 2024-11-07 13:44 | disposition home or self-care (01) ==
LOC: HO.HOS 13:05
DX: S52.201A Unspecified fracture of shaft of right ulna, initial encounter for closed fracture (principal)
CPT/HCPCS: 99213

== ENCOUNTER → 2024-11-07 13:05 | Outpatient (BNV) | payer MEDICARE, OTHER, SELFPAY | PROVIDERS: Visit Provider Radiology Diagnostic Radiology | DX: M25.531 Pain in right wrist (principal) | CPT/HCPCS: 73110 ==

== ENCOUNTER 2024-12-05 12:46 | Outpatient (AMB) | payer MEDICARE, SELFPAY ==
[2024-12-05 13:01] VITALS: BMI 25.3
--- NOTE | 2024-12-05 13:01 | MHC.OFFVIS ---
Vital Signs 12/05/24 13:01 Height 5 ft 1 in Weight 134 lb BMI 25.3 Intake Visit Reasons: OV-right ulna fx DOI: 08/30/24-follow up-w/xrays Intake Note: Lina is an 84 year old woman who presents today, with her son for follow up status post right ulnar fracture, DOI: 08/30/24. At her last visit she was provided with a Velcro wrist brace. A 2 lb weight limit was reinforced. A forearm walker prescription was sent however this was changed to a denny walker due to availability. Referral to Occupational Therapy was placed. Patient reports today she has not received the walker as of yet. She has been managing with a cane and a wheechair. Patient complains of pain on the ulnar aspect of the right wrist. She deneis numbness or tingling. She is not taking pain medications at this time. Allergies Uwostlt-TSH-YgD Reductase Inhibitor Allergy (Verified 12/05/24 13:01) Unknown melons Allergy (Unknown, Uncoded 12/05/24 13:01) throat sweling HPI HPI OV-right ulna fx DOI: 08/30/24-follow up-w/xrays: Details: Lina is an 84 year old woman who presents today, with her son for follow up status post right ulnar fracture, DOI: 08/30/24. At her last visit she was provided with a Velcro wrist brace. A 2 lb weight limit was reinforced. A forearm walker prescription was sent however this was changed to a denny walker due to availability. Referral to Occupational Therapy was placed. Patient reports today she has not received the walker as of yet. She has been managing with a cane and a wheechair. Patient complains of pain on the ulnar aspect of the right wrist. She deneis numbness or tingling. She is not taking pain medications at this time. COUNTS INCLUDE 234 BEDS AT THE [facility] Medical History Myocardial infarct, old HTN (hypertension) Surgical History H/O heart artery stent Social History Household Members: Other Household Members Other:: [facility] Housing: Other Do you presently have visiting nurse or other home services: Yes Alcohol intake: never Patient Tobacco Use Status: Former Tobacco user Advance Directives Date on File: 08/04/23 service: No Sexual orientation: Straight/Heterosexual Review of Systems Const All systems reviewed & are unremarkable except as noted in HPI and below Physical Exam Vital Signs: BMI result Body Mass Index 25.3 Extrem Other: Patient is alert, oriented, and in no acute distress. Neuro: Normal sensation of the tips of all digits of the right hand at this time Vascular: Cap refill brisk Pain: No tenderness to palpation about right distal ulnar shaft of the level of the fracture No pain with range of motion of the right wrist, elbow, digits of the right hand ROM: Patient is able to make a closed fist and extend all digits of the right hand fully Patient has approximately 60 degrees of active flexion, 50 degrees of active extension, full pronation, and approximately 70-80 degrees of active supination of the right wrist Patient is able to extend the right elbow fully and is able to flex to approximately 140 degrees without difficulty Skin: No lacerations or abrasions. General: No ecchymosis, erythema, or evidence of infection. Psych: Appears grossly normal Affect normal Attitude cooperative Assessment & Plan Assessment & Plan (1) Fracture of right ulna, shaft: Code(s): S52.201A - Unspecified fracture of shaft of right ulna, initial encounter for closed fracture Category: Medical Plan 1. Right distal ulnar shaft fracture Date of injury 08/30/2024 Patient appears to be recovering well from her injury Patient is educated about the typical recovery course At this time, patient is provided with a Velcro wrist splint to wear with daytime activities Patient may slowly increase to 5 lb weight limit over the next 2 weeks, 10 lb weight limit over the following 2-3 weeks, and then return to normal lifting Patient may return to use of her normal rolling walker Splint with high-risk daytime activities Outpatient referral to OT placed, as she is no longer living at a rehab and has returned home Patient is amenable to this plan Follow-up as needed Coding Level of Care Code Global (97142) Diagnoses Fracture of right ulna, shaft S52.201A
--- OUTSIDE RECORDS SUMMARY | 2024-12-05 15:40 | XMS_ITS | Clinical Summary ---
Author Organization [facility] Address [address] [place] [address] Phone Care Team Providers Care Supervisor Machining Name Role Phone Unavailable Primary Care Provider [...] age to complete this topic Insurance Medicare [facility] Medicare [facility]
--- OUTSIDE RECORDS SUMMARY | 2024-12-05 15:40 | XMS_ITS | Encounter Summary ---
Author Organization [facility] Address [address] [place] [address] Care Team Providers Care Integration Software Engineer Name Role Phone Marianna Amador MD Primary Care Provider Encounter Details Date Type Department Care Team (Late st Contact Info) Description 09/04/2024 Lab Requisition [facility] - Main Lab [address] [place] [address] Genna Camilo MD [address] [place] [phone] Encounter for other general examination Social History [...] AM EDT) WBC 6.9 4.8 - 10.8 K/[facility] LAB HEMETOLOGY METHOD 09/04/2024 12:11 PM EDT [facility] RBC 4.00 3.80 - 4.80 M/mcL LAB HEMETOLOGY METHOD 09/04/2024 12:11 PM [facility] Hemoglobin 12.1 11.5 - 16.0 g/dL LAB HEMETOLOGY METHOD 09/04/2024 12:11 PM [facility] Hematocrit 36.6 35.0 - 47.0 % LAB HEMETOLOGY METHOD 09/04/2024 12:11 PM [facility] MCV 90.6 79.0 - 98.0 FL LAB HEMETOLOGY METHOD 09/04/2024 12:11 PM [facility] MCH 30.0 27.0 - 32.0 pcg LAB HEMETOLOGY METHOD 09/04/2024 12:11 PM [facility] MCHC 33.1 32.0 - 37.0 g/dL LAB HEMETOLOGY METHOD 09/04/2024 12:11 PM [facility] RDW 13.9 11.0 - 15.0 % LAB HEMETOLOGY METHOD 09/04/2024 12:11 PM [facility] Platelets 364 130 - 400 K/mcL LAB HEMETOLOGY METHOD 09/04/2024 12:11 PM [facility] MPV 8.7 7.0 - 11.0 FL LAB HEMETOLOGY METHOD 09/04/2024 12:11 PM [facility] NRBC 0.0 <1.0 % LAB HEMETOLOGY METHOD 09/04/2024 12:11 PM [facility] NRBC Absolute 0.00 <0.10 K/mcL LAB HEMETOLOGY METHOD 09/04/2024 12:11 PM [facility] Blood Venous blood specimen / Unknown Venipuncture / Unknown 09/04/2024 4:43 AM EDT 09/04/2024 10:57 AM EDT us Genna Camilo MD LAB BLOOD ORDERABLES Final Resu lt [facility] [address] [place] [address], * (ABNORMAL) Comprehensive metabolic panel (09/04/2024 4:43 AM EDT) Sodium 130(L) 133 - 145 mmol/L LAB CHEMISTRY METHOD 09/04/2024 4:16 PM [facility] Potassium 3.9 3.5 - 5.5 mmol/L LAB CHEMISTRY METHOD 09/04/2024 4:16 PM [facility] Chloride 93(L) 96 - 110 mmol/L LAB CHEMISTRY METHOD 09/04/2024 4:16 PM [facility] CO2 27 21 - 32 mmol/L LAB CHEMISTRY METHOD 09/04/2024 4:16 PM [facility] Anion Gap 10 3 - 11 LAB CHEMISTRY METHOD 09/04/2024 4:16 PM [facility] Glucose 89 70 - 100 mg/dL LAB CHEMISTRY METHOD 09/04/2024 4:16 PM [facility] BUN 11 5 - 25 mg/dL LAB CHEMISTRY METHOD 09/04/2024 4:16 PM [facility] Creatinine 0.70 0.50 - 1.10 mg/dL LAB CHEMISTRY METHOD 09/04/2024 4:16 PM [facility] eGFR 86 >=60 mL/min/1. 73m2 LAB CHEMISTRY METHOD 09/04/2024 4:16 PM [facility] Comment:Calculation based on the Chronic Kidney Disease Epidemiology Collaboration (CKD-EPI) equation refit without adjustment for race. BUN/Creatinine Ratio 15.7 LAB CHEMISTRY METHOD 09/04/2024 4:16 PM [facility] Calcium 9.3 8.5 - 10.5 mg/dL LAB CHEMISTRY METHOD 09/04/2024 4:16 PM EDT [facility] AST (SGOT) 13 10 - 42 unit/L LAB CHEMISTRY METHOD 09/04/2024 4:16 PM EDT [facility] ALT (SGPT) 24 10 - 60 unit/L LAB CHEMISTRY METHOD 09/04/2024 4:16 PM EDT [facility] Alkaline Phosphatase 74 42 - 121 unit/L LAB CHEMISTRY METHOD 09/04/2024 4:16 PM EDT [facility] Total Protein 6.0 6.0 - 8.0 g/dL LAB CHEMISTRY METHOD 09/04/2024 4:16 PM EDT [facility] Albumin 3.4 3.2 - 5.0 g/dL LAB CHEMISTRY METHOD 09/04/2024 4:16 PM EDT [facility] Total Bilirubin 0.5 0.0 - 1.4 mg/dL LAB CHEMISTRY METHOD 09/04/2024 4:16 PM EDT [facility] Blood Venous blood specimen / Unknown Venipuncture / Unknown 09/04/2024 4:43 AM EDT 09/04/2024 10:57 AM EDT us Genna Camilo MD LAB BLOOD ORDERABLES Final Resu lt [facility] [address] [place] [address], documented in this encounter Visit Diagnoses Diagnosis Encounter for other general examination documented in this encounter Care Teams Integration Software Engineer Relationship Specialty Start Date End Date Marianna Amador MD [address] [place] [address] PCP - General Internal Medicine 10/29/11 documented as of this encounter
--- OUTSIDE RECORDS SUMMARY | 2024-12-05 15:40 | XMS_ITS | Encounter Summary ---
Author Organization [facility] Address [id number] [place] [phone] Care Team Providers Care Shuttle Filler Name Role Phone Marianna Amador MD Primary Care Provider Encounter Details Date Type Department Care Team (Late st Contact Info) Description 09/07/2024 Lab Requisition [facility] - Main Lab [address] [place] [address] Kristin Chun PA [address] [place] [address] Encounter for other general examination [...] AM EDT) WBC 8.6 4.8 - 10.8 K/[facility] LAB HEMETOLOGY METHOD 09/07/2024 9:05 AM EDT [facility] LAB RBC 3.90 3.80 - 4.80 M/[facility] LAB HEMETOLOGY METHOD 09/07/2024 9:05 AM [facility] LAB Hemoglobin 11.8 11.5 - 16.0 g/dL LAB HEMETOLOGY METHOD 09/07/2024 9:05 AM [facility] LAB Hematocrit 35.9 35.0 - 47.0 % LAB HEMETOLOGY METHOD 09/07/2024 9:05 AM [facility] LAB MCV 92.8 79.0 - 98.0 FL LAB HEMETOLOGY METHOD 09/07/2024 9:05 AM [facility] LAB MCH 30.5 27.0 - 32.0 pcg LAB HEMETOLOGY METHOD 09/07/2024 9:05 AM [facility] LAB MCHC 32.9 32.0 - 37.0 g/dL LAB HEMETOLOGY METHOD 09/07/2024 9:05 AM [facility] LAB RDW 13.9 11.0 - 15.0 % LAB HEMETOLOGY METHOD 09/07/2024 9:05 AM [facility] LAB Platelets 364 130 - 400 K/mcL LAB HEMETOLOGY METHOD 09/07/2024 9:05 AM [facility] LAB MPV 9.3 7.0 - 11.0 FL LAB HEMETOLOGY METHOD 09/07/2024 9:05 AM [facility] LAB NRBC 0.0 <1.0 % LAB HEMETOLOGY METHOD 09/07/2024 9:05 AM [facility] LAB NRBC Absolute 0.00 <0.10 K/mcL LAB HEMETOLOGY METHOD 09/07/2024 9:05 AM [facility] LAB Blood Venous blood specimen / Unknown Venipuncture / Unknown 09/07/2024 5:54 AM EDT 09/07/2024 7:34 AM EDT us Kristin RACHEL LAB BLOOD ORDERABLES Final Re sult [facility] LAB [address] [place] [address], * Comprehensive metabolic panel (09/07/2024 5:54 AM EDT) Sodium 133 133 - 145 mmol/L LAB CHEMISTRY METHOD 09/07/2024 9:23 AM [facility] LAB Potassium 4.1 3.5 - 5.5 mmol/L LAB CHEMISTRY METHOD 09/07/2024 9:23 AM [facility] LAB Chloride 97 96 - 110 mmol/L LAB CHEMISTRY METHOD 09/07/2024 9:23 AM [facility] LAB CO2 30 21 - 32 mmol/L LAB CHEMISTRY METHOD 09/07/2024 9:23 AM [facility] LAB Anion Gap 6 3 - 11 LAB CHEMISTRY METHOD 09/07/2024 9:23 AM [facility] LAB Glucose 83 70 - 100 mg/dL LAB CHEMISTRY METHOD 09/07/2024 9:23 AM [facility] LAB BUN 9 5 - 25 mg/dL LAB CHEMISTRY METHOD 09/07/2024 9:23 AM [facility] LAB Creatinine 0.57 0.50 - 1.10 mg/dL LAB CHEMISTRY METHOD 09/07/2024 9:23 AM [facility] LAB eGFR 90 >=60 mL/min/1. 73m2 LAB CHEMISTRY METHOD 09/07/2024 9:23 AM [facility] LAB Comment:Calculation based on the Chronic Kidney Disease Epidemiology Collaboration (CKD-EPI) equation refit without adjustment for race. BUN/Creatinine Ratio 15.8 LAB CHEMISTRY METHOD 09/07/2024 9:23 AM [facility] LAB Calcium 8.8 8.5 - 10.5 mg/dL LAB CHEMISTRY METHOD 09/07/2024 9:23 AM [facility] LAB AST (SGOT) 27 10 - 42 unit/L LAB CHEMISTRY METHOD 09/07/2024 9:23 AM EDT [facility] LAB ALT (SGPT) 44 10 - 60 unit/L LAB CHEMISTRY METHOD 09/07/2024 9:23 AM EDT [facility] LAB Alkaline Phosphatase 83 42 - 121 unit/L LAB CHEMISTRY METHOD 09/07/2024 9:23 AM EDT [facility] LAB Total Protein 6.0 6.0 - 8.0 g/dL LAB CHEMISTRY METHOD 09/07/2024 9:23 AM EDT [facility] LAB Albumin 3.3 3.2 - 5.0 g/dL LAB CHEMISTRY METHOD 09/07/2024 9:23 AM [facility] LAB Total Bilirubin 0.4 0.0 - 1.4 mg/dL LAB CHEMISTRY METHOD 09/07/2024 9:23 AM EDT [facility] LAB Blood Venous blood specimen / Unknown Venipuncture / Unknown 09/07/2024 5:54 AM EDT 09/07/2024 7:34 AM EDT us Kristin RACHEL LAB BLOOD ORDERABLES Final Re sult [facility] [address] [place] [address], documented in this encounter Visit Diagnoses Diagnosis Encounter for other general examination documented in this encounter Care Teams Shuttle Filler Relationship Specialty Start Date End Date Marianna Amador MD [address] [place] [address] PCP - General Internal Medicine 10/29/11 documented as of this encounter
--- OUTSIDE RECORDS SUMMARY | 2024-12-05 15:40 | XMS_ITS | Encounter Summary ---
Author Organization [facility] Address [address] [place] [phone] Care Team Providers Care Cook Relief Name Role Phone Marianna Amador MD Primary Care Provider Encounter Details Date Type Department Care Team (Late st Contact Info) Description 09/11/2024 Lab Requisition [facility] [place] [facility] - Main Lab [address] [place] [address] Kristin Chun PA [address] [place] [address] Encounter for other general examination [...] Complete blood count (09/11/2024 5:34 AM EDT) [facility] Signature WBC 5.8 4.8 - 10.8 K/[facility] LAB HEMETOLOGY METHOD 09/11/2024 10:45 AM EDT [facility] LAB RBC 3.80 3.80 - 4.80 M/mcL LAB HEMETOLOGY METHOD 09/11/2024 10:45 AM T [facility] LAB Hemoglobin 11.5 11.5 - 16.0 g/dL LAB HEMETOLOGY METHOD 09/11/2024 10:45 AM [facility] LAB Hematocrit 35.0 35.0 - 47.0 % LAB HEMETOLOGY METHOD 09/11/2024 10:45 AM [facility] LAB MCV 93.1 79.0 - 98.0 FL LAB HEMETOLOGY METHOD 09/11/2024 10:45 AM [facility] LAB MCH 30.6 27.0 - 32.0 pcg LAB HEMETOLOGY METHOD 09/11/2024 10:45 AM [facility] LAB MCHC 32.9 32.0 - 37.0 g/dL LAB HEMETOLOGY METHOD 09/11/2024 10:45 AM [facility] LAB RDW 14.0 11.0 - 15.0 % LAB HEMETOLOGY METHOD 09/11/2024 10:45 AM [facility] LAB Platelets 425(H) 130 - 400 K/mcL LAB HEMETOLOGY METHOD 09/11/2024 10:45 AM [facility] LAB MPV 9.3 7.0 - 11.0 FL LAB HEMETOLOGY METHOD 09/11/2024 10:45 AM [facility] LAB NRBC 0.0 <1.0 % LAB HEMETOLOGY METHOD 09/11/2024 10:45 AM [facility] LAB NRBC Absolute 0.00 <0.10 K/mcL LAB HEMETOLOGY METHOD 09/11/2024 10:45 AM [facility] LAB Blood Venous blood specimen / Unknown Venipuncture / Unknown 09/11/2024 5:34 AM EDT 09/11/2024 10:10 AM EDT us Kristin RACHEL LAB BLOOD ORDERABLES Final Re sult [facility] LAB [address] [place] [address], * (ABNORMAL) Comprehensive metabolic panel (09/11/2024 5:34 AM EDT) Sodium 139 133 - 145 mmol/L LAB CHEMISTRY METHOD 09/11/2024 11:19 AM [facility] LAB Potassium 4.3 3.5 - 5.5 mmol/L LAB CHEMISTRY METHOD 09/11/2024 11:19 AM [facility] LAB Chloride 103 96 - 110 mmol/L LAB CHEMISTRY METHOD 09/11/2024 11:19 AM [facility] LAB CO2 27 21 - 32 mmol/L LAB CHEMISTRY METHOD 09/11/2024 11:19 AM [facility] LAB Anion Gap 9 3 - 11 LAB CHEMISTRY METHOD 09/11/2024 11:19 AM [facility] LAB Glucose 73 70 - 100 mg/dL LAB CHEMISTRY METHOD 09/11/2024 11:19 AM [facility] LAB BUN 8 5 - 25 mg/dL LAB CHEMISTRY METHOD 09/11/2024 11:19 AM [facility] LAB Creatinine 0.48(L) 0.50 - 1.10 mg/dL LAB CHEMISTRY METHOD 09/11/2024 11:19 AM [facility] LAB eGFR 94 >=60 mL/min/1. 73m2 LAB CHEMISTRY METHOD 09/11/2024 11:19 AM [facility] LAB Comment:Calculation based on the Chronic Kidney Disease Epidemiology Collaboration (CKD-EPI) equation refit without adjustment for race. BUN/Creatinine Ratio 16.7 LAB CHEMISTRY METHOD 09/11/2024 11:19 AM [facility] LAB Calcium 8.4(L) 8.5 - 10.5 mg/dL LAB CHEMISTRY METHOD 09/11/2024 11:19 AM EDT [facility] LAB AST (SGOT) 15 10 - 42 unit/L LAB CHEMISTRY METHOD 09/11/2024 11:19 AM T [facility] LAB ALT (SGPT) 44 10 - 60 unit/L LAB CHEMISTRY METHOD 09/11/2024 11:19 AM [facility] LAB Alkaline Phosphatase 87 42 - 121 unit/L LAB CHEMISTRY METHOD 09/11/2024 11:19 AM T [facility] LAB Total Protein 5.9(L) 6.0 - 8.0 g/dL LAB CHEMISTRY METHOD 09/11/2024 11:19 AM [facility] LAB Albumin 3.1(L) 3.2 - 5.0 g/dL LAB CHEMISTRY METHOD 09/11/2024 11:19 AM [facility] LAB Total Bilirubin 0.2 0.0 - 1.4 mg/dL LAB CHEMISTRY METHOD 09/11/2024 11:19 AM T [facility] LAB Blood Venous blood specimen / Unknown Venipuncture / Unknown 09/11/2024 5:34 AM EDT 09/11/2024 10:10 AM EDT us Kristin RACHEL LAB BLOOD ORDERABLES Final Re sult [facility] [address] [place] [address], documented in this encounter Visit Diagnoses Diagnosis Encounter for other general examination documented in this encounter Care Teams Cook Relief Relationship Specialty Start Date End Date Marianna Amador MD [address] [place] [address] PCP - General Internal Medicine 10/29/11 documented as of this encounter
--- OUTSIDE RECORDS SUMMARY | 2024-12-05 15:40 | XMS_ITS | Encounter Summary ---
Author Organization [facility] Address [address] [place] [phone] Care Team Providers Care Administrative Resources Associate Name Role Phone Marianna Amador MD Primary Care Provider Encounter Details Date Type Department Care Team (Late st Contact Info) Description 10/10/2024 Lab Requisition [facility] - Main Lab [address] [place] [address] Genna Camilo MD [address] [place] [id number] Essential (primary) hypertension Social History Tobacco Use [...] LAB CHEMISTRY METHOD 10/10/2024 8:[address] [facility] LAB Potassium 3.8 3.5 - 5.5 mmol/L LAB CHEMISTRY METHOD 10/10/2024 8:47 AM [facility] LAB Chloride 100 96 - 110 mmol/L LAB CHEMISTRY METHOD 10/10/2024 8:47 AM [facility] LAB CO2 27 21 - 32 mmol/L LAB CHEMISTRY METHOD 10/10/2024 8:47 AM [facility] LAB Anion Gap 8 3 - 11 LAB CHEMISTRY METHOD 10/10/2024 8:47 AM [facility] LAB Glucose 97 70 - 100 mg/dL LAB CHEMISTRY METHOD 10/10/2024 8:47 AM [facility] LAB BUN 16 5 - 25 mg/dL LAB CHEMISTRY METHOD 10/10/2024 8:47 AM [facility] LAB Creatinine 0.97 0.50 - 1.10 mg/dL LAB CHEMISTRY METHOD 10/10/2024 8:47 AM [facility] LAB eGFR 58(L) >=60 mL/min/1. 73m2 LAB CHEMISTRY METHOD 10/10/2024 8:47 AM [facility] LAB Comment:Calculation based on the Chronic Kidney Disease Epidemiology Collaboration (CKD-EPI) equation refit without adjustment for race. BUN/Creatinine Ratio 16.5 LAB CHEMISTRY METHOD 10/10/2024 8:47 AM [facility] LAB Calcium 9.3 8.5 - 10.5 mg/dL LAB CHEMISTRY METHOD 10/10/2024 8:47 AM [facility] LAB Blood Venous blood specimen / Unknown Venipuncture / Unknown 10/10/2024 5:10 AM EDT 10/10/2024 6:37 AM EDT us Genna Camilo MD LAB BLOOD ORDERABLES Final Resu lt [facility] [address] [place] [address], * (ABNORMAL) Complete blood count (10/10/2024 5:10 AM EDT) [facility] WBC 7.5 4.8 - 10.8 K/mcL LAB HEMETOLOGY METHOD 10/10/2024 7:05 AM [facility] RBC 3.80 3.80 - 4.80 M/mcL LAB HEMETOLOGY METHOD 10/10/2024 7:05 AM [facility] LAB Hemoglobin 11.3(L) 11.5 - 16.0 g/dL LAB HEMETOLOGY METHOD 10/10/2024 7:05 AM [facility] LAB Hematocrit 34.3(L) 35.0 - 47.0 % LAB HEMETOLOGY METHOD 10/10/2024 7:05 AM [facility] LAB MCV 90.5 79.0 - 98.0 FL LAB HEMETOLOGY METHOD 10/10/2024 7:05 AM [facility] LAB MCH 29.8 27.0 - 32.0 pcg LAB HEMETOLOGY METHOD 10/10/2024 7:05 AM [facility] LAB MCHC 32.9 32.0 - 37.0 g/dL LAB HEMETOLOGY METHOD 10/10/2024 7:05 AM [facility] LAB RDW 13.5 11.0 - 15.0 % LAB HEMETOLOGY METHOD 10/10/2024 7:05 AM [facility] LAB Platelets 501(H) 130 - 400 K/mcL LAB HEMETOLOGY METHOD 10/10/2024 7:05 AM [facility] LAB MPV 9.0 7.0 - 11.0 FL LAB HEMETOLOGY METHOD 10/10/2024 7:05 AM [facility] LAB NRBC 0.0 <1.0 % LAB HEMETOLOGY METHOD 10/10/2024 7:05 AM [facility] LAB NRBC Absolute 0.00 <0.10 K/mcL LAB HEMETOLOGY METHOD 10/10/2024 7:[address] [facility] Blood Venous blood specimen / Unknown Venipuncture / Unknown 10/10/2024 5:10 AM EDT 10/10/2024 6:37 AM EDT us Genna Camilo MD LAB BLOOD ORDERABLES Final Resu lt [facility] [address] [place] [address], documented in this encounter Visit Diagnoses Diagnosis Essential (primary) hypertension Unspecified essential hypertension documented in this encounter Care Teams Administrative Resources Associate Relationship Specialty Start Date End Date Marianna Amador MD [address] [place] [address] PCP - General Internal Medicine 10/29/11 documented as of this encounter
--- OUTSIDE RECORDS SUMMARY | 2024-12-05 15:40 | XMS_ITS | Encounter Summary ---
Author Organization [facility] Address [address] [place] [phone] Care Team Providers Care Color Straining Bag Washer Name Role Phone Marianna Amador MD Primary Care Provider Encounter Details Date Type Department Care Team (Late st Contact Info) Description 08/31/[address] [facility] - Main Lab [address] [facility] [place] [address] Genna Camilo MD [address] [place] [phone] Encounter for other general examination Social History [...] CBC auto differential (08/31/2024 5:56 AM EDT) [facility] WBC 6.9 4.8 - 10.8 K/mcL LAB HEMETOLOGY METHOD 08/31/2024 11:09 AM [facility] LAB RBC 4.10 3.80 - 4.80 M/mcL LAB HEMETOLOGY METHOD 08/31/2024 11:09 AM [facility] LAB Hemoglobin 12.3 11.5 - 16.0 g/dL LAB HEMETOLOGY METHOD 08/31/2024 11:09 AM [facility] LAB Hematocrit 37.8 35.0 - 47.0 % LAB HEMETOLOGY METHOD 08/31/2024 11:09 AM [facility] LAB MCV 92.2 79.0 - 98.0 FL LAB HEMETOLOGY METHOD 08/31/2024 11:09 AM [facility] LAB MCH 30.0 27.0 - 32.0 pcg LAB HEMETOLOGY METHOD 08/31/2024 11:09 AM [facility] LAB MCHC 32.5 32.0 - 37.0 g/dL LAB HEMETOLOGY METHOD 08/31/2024 11:09 AM [facility] LAB RDW 13.8 11.0 - 15.0 % LAB HEMETOLOGY METHOD 08/31/2024 11:09 AM [facility] LAB Platelets 387 130 - 400 K/mcL LAB HEMETOLOGY METHOD 08/31/2024 11:09 AM [facility] LAB MPV 8.8 7.0 - 11.0 FL LAB HEMETOLOGY METHOD 08/31/2024 11:09 AM [facility] NRBC 0.0 <1.0 % LAB HEMETOLOGY METHOD 08/31/2024 11:09 AM [facility] NRBC Absolute 0.00 <0.10 K/mcL LAB HEMETOLOGY METHOD 08/31/2024 11:09 AM [facility] Neutrophils Relative 47.0 % LAB HEMETOLOGY METHOD 08/31/2024 11:09 AM [facility] Lymphocytes Relative 38.9 % LAB HEMETOLOGY METHOD 08/31/2024 11:09 AM [facility] Monocytes Relative 10.7 % LAB HEMETOLOGY METHOD 08/31/2024 11:09 AM [facility] Eosinophils Relative 2.2 % LAB HEMETOLOGY METHOD 08/31/2024 11:09 AM [facility] Basophils Relative 0.9 % LAB HEMETOLOGY METHOD 08/31/2024 11:09 AM [facility] Immature Granulocytes Relative 0.3 % LAB HEMETOLOGY METHOD 08/31/2024 11:09 AM [facility] Neutrophils Absolute 3.24 1.50 - 7.00 K/mcL LAB HEMETOLOGY METHOD 08/31/2024 11:09 AM [facility] Lymphocytes Absolute 2.68 1.00 - 5.00 K/mcL LAB HEMETOLOGY METHOD 08/31/2024 11:09 AM [facility] Monocytes Absolute 0.74 0.20 - 1.00 K/mcL LAB HEMETOLOGY METHOD 08/31/2024 11:09 AM [facility] Eosinophils Absolute 0.15 0.00 - 0.50 K/mcL LAB HEMETOLOGY METHOD 08/31/2024 11:09 AM [facility] Basophils Absolute 0.06 0.00 - 0.20 K/mcL LAB HEMETOLOGY METHOD 08/31/2024 11:09 AM [facility] Immature Granulocytes Absolute 0.02 0.00 - 0.03 K/mcL LAB HEMETOLOGY METHOD 08/31/2024 11:09 AM [facility] Blood Venous blood specimen / Unknown Venipuncture / Unknown 08/31/2024 5:56 AM EDT 08/31/2024 10:27 AM EDT us Genna Camilo MD LAB BLOOD ORDERABLES Final Resu lt Performing Organization Address [facility]/ZIP Co de Phone Number [facility] [address] [place] [address], [place] [phone] * Magnesium (08/31/2024 5:56 AM EDT) Pathologist [facility] Magnesium 2.4 1.9 - 2.6 mg/dL LAB CHEMISTRY METHOD 08/31/2024 12:02 PM EDT [facility] Blood Venous blood specimen / Unknown Venipuncture / Unknown 08/31/2024 5:56 AM EDT 08/31/2024 10:27 AM EDT us Genna Camilo MD LAB BLOOD ORDERABLES Final Resu lt Performing Organization Address City/[facility]/ZIP Co de Phone Number [facility] [address] [place] [address], [place] [phone] * (ABNORMAL) Comprehensive metabolic panel (08/31/2024 5:56 AM EDT) [facility] Sodium 135 133 - 145 mmol/L LAB CHEMISTRY METHOD 08/31/2024 12:02 PM EDT [facility] Potassium 4.1 3.5 - 5.5 mmol/L LAB CHEMISTRY METHOD 08/31/2024 12:02 PM EDT [facility] Chloride 100 96 - 110 mmol/L LAB CHEMISTRY METHOD 08/31/2024 12:02 PM EDT [facility] CO2 26 21 - 32 mmol/L LAB CHEMISTRY METHOD 08/31/2024 12:02 PM EDT [facility] Anion Gap 9 3 - 11 LAB CHEMISTRY METHOD 08/31/2024 12:02 PM EDT [facility] Glucose 74 70 - 100 mg/dL LAB CHEMISTRY METHOD 08/31/2024 12:02 PM [facility] BUN 9 5 - 25 mg/dL LAB CHEMISTRY METHOD 08/31/2024 12:02 PM [facility] Creatinine 0.63 0.50 - 1.10 mg/dL LAB CHEMISTRY METHOD 08/31/2024 12:02 PM [facility] eGFR 88 >=60 mL/min/1. 73m2 LAB CHEMISTRY METHOD 08/31/2024 12:02 PM [facility] Comment:Calculation based on the Chronic Kidney Disease Epidemiology Collaboration (CKD-EPI) equation refit without adjustment for race. BUN/Creatinine Ratio 14.3 LAB CHEMISTRY METHOD 08/31/2024 12:02 PM [facility] Calcium 8.9 8.5 - 10.5 mg/dL LAB CHEMISTRY METHOD 08/31/2024 12:02 [facility] AST (SGOT) 15 10 - 42 unit/L LAB CHEMISTRY METHOD 08/31/2024 12:02 [facility] ALT (SGPT) 22 10 - 60 unit/L LAB CHEMISTRY METHOD 08/31/2024 12:02 PM [facility] Alkaline Phosphatase 74 42 - 121 unit/L LAB CHEMISTRY METHOD 08/31/2024 12:02 [facility] Total Protein 5.9(L) 6.0 - 8.0 g/dL LAB CHEMISTRY METHOD 08/31/2024 12:02 [facility] Albumin 3.3 3.2 - 5.0 g/dL LAB CHEMISTRY METHOD 08/31/2024 12:02 PM [facility] Total Bilirubin 0.4 0.0 - 1.4 mg/dL LAB CHEMISTRY METHOD 08/31/2024 12:02 PM [facility] Blood Venous blood specimen / Unknown Venipuncture / Unknown 08/31/2024 5:56 AM EDT 08/31/2024 10:27 AM EDT us Genna Camilo MD LAB BLOOD ORDERABLES Final Resu lt [facility] ([facility]) [facility] [address] [place] [address], documented in this encounter Visit Diagnoses Diagnosis Encounter for other general examination documented in this encounter Care Teams Color Straining Bag Washer Relationship Specialty Start Date End Date Marianna Amador MD [address] [place] [address] PCP - General Internal Medicine 10/29/11 documented as of this encounter
--- OUTSIDE RECORDS SUMMARY | 2024-12-05 15:40 | XMS_ITS | Clinical Summary ---
Author Organization [address] [facility] Address [address] [place] [address] Phone Care Team Providers Care Software Security Consultant Name Role Phone Marianna Amador MD Primary Care Provider Encounters Date Type Department Care Team Description 10/10/[address] [facility] [address] [place] [id number] Genna Camilo MD Essential (primary) hypertension 09/11/[address] [facility] [address] [place] [address] Kristin Chun PA Encounter for other general examination 09/07/[address] [facility] [address] [place] [address] Kristin Chun PA Encounter for other general examination 09/04/[address] [facility] [address] [place] [address] Genna Camilo MD Encounter for other general examination from Last 3 Months Medical History Medical History Date Comments HTN (hypertension) 11/12/2011 DX:HTN (hyper tension) Historical Medical DX 11/12/2011 DX:Hyperli pidemia LDL goal < 70 Coronary atherosclerosis of unspecified type of vessel, cantwell or graft 11/12/2011 DX:Coronary atherosclerosis of unspecified type of vessel, cantwell or graft Squamous cell carcinoma of skin [...] Patients (1 - 1-dose 75+ series) 2016 Depression Screening 03/15/2024 Cholesterol Screening (Lipid Panel) 08/31/2024 Falls Risk Assessment 08/31/2024 Medicare Annual Wellness Visit 08/31/2024 Osteoporosis Screening (Bone Density Screening) 08/31/2024 Social Influencers of Health Screening 08/31/2024 COVID-19 Vaccine ( - season) 2024 Influenza Vaccine (#1) 2024 Hypertension/CHF/CAD Annual BMP [...] of4 resultswithin the time period is included. WBC 7.5 4.8 - 10.8 K/mcL LAB HEMETOLOGY METHOD 10/10/2024 7:05 AM [facility] RBC 3.80 3.80 - 4.80 M/mcL LAB HEMETOLOGY METHOD 10/10/2024 7:05 AM [facility] Hemoglobin 11.3(L) 11.5 - 16.0 g/dL LAB HEMETOLOGY METHOD 10/10/2024 7:05 AM [facility] Hematocrit 34.3(L) 35.0 - 47.0 % LAB HEMETOLOGY METHOD 10/10/2024 7:05 AM [facility] MCV 90.5 79.0 - 98.0 FL LAB HEMETOLOGY METHOD 10/10/2024 7:05 AM EDT [facility] MCH 29.8 27.0 - 32.0 pcg LAB HEMETOLOGY METHOD 10/10/2024 7:05 AM EDT [facility] MCHC 32.9 32.0 - 37.0 g/dL LAB HEMETOLOGY METHOD 10/10/2024 7:05 AM EDT [facility] RDW 13.5 11.0 - 15.0 % LAB HEMETOLOGY METHOD 10/10/2024 7:05 AM EDT [facility] Platelets 501(H) 130 - 400 K/mcL LAB HEMETOLOGY METHOD 10/10/2024 7:05 AM EDT [facility] MPV 9.0 7.0 - 11.0 FL LAB HEMETOLOGY METHOD 10/10/2024 7:05 AM EDT [facility] NRBC 0.0 <1.0 % LAB HEMETOLOGY METHOD 10/10/2024 7:05 AM EDT [facility] NRBC Absolute 0.00 <0.10 K/mcL LAB HEMETOLOGY METHOD 10/10/2024 7:05 AM [facility] Blood Venous blood specimen / Unknown Venipuncture / Unknown 10/10/2024 5:10 AM EDT 10/10/2024 6:37 AM EDT us Genna Camilo MD LAB BLOOD ORDERABLES Final Resu lt [facility] [address] [place] [address], * (ABNORMAL) Basic metabolic panel (10/10/2024 5:10 AM EDT) Sodium 135 133 - 145 mmol/L LAB CHEMISTRY METHOD 10/10/2024 8:47 AM [facility] Potassium 3.8 3.5 - 5.5 mmol/L LAB CHEMISTRY METHOD 10/10/2024 8:47 AM [facility] Chloride 100 96 - 110 mmol/L LAB CHEMISTRY METHOD 10/10/2024 8:47 AM [facility] CO2 27 21 - 32 mmol/L LAB CHEMISTRY METHOD 10/10/2024 8:47 AM [facility] Anion Gap 8 3 - 11 LAB CHEMISTRY METHOD 10/10/2024 8:47 AM [facility] Glucose 97 70 - 100 mg/dL LAB CHEMISTRY METHOD 10/10/2024 8:47 AM [facility] BUN 16 5 - 25 mg/dL LAB CHEMISTRY METHOD 10/10/2024 8:47 AM [facility] Creatinine 0.97 0.50 - 1.10 mg/dL LAB CHEMISTRY METHOD 10/10/2024 8:47 AM [facility] eGFR 58(L) >=60 mL/min/1. 73m2 LAB CHEMISTRY METHOD 10/10/2024 8:47 AM [facility] Comment:Calculation based on the Chronic Kidney Disease Epidemiology Collaboration (CKD-EPI) equation refit without adjustment for race. BUN/Creatinine Ratio 16.5 LAB CHEMISTRY METHOD 10/10/2024 8:47 AM [facility] Calcium 9.3 8.5 - 10.5 mg/dL LAB CHEMISTRY METHOD 10/10/2024 8:47 AM [facility] Blood Venous blood specimen / Unknown Venipuncture / Unknown 10/10/2024 5:10 AM EDT 10/10/2024 6:37 AM EDT us Genna Camilo MD LAB BLOOD ORDERABLES Final Resu lt [facility] [address] [place] [address], [place] [phone] * (ABNORMAL) Comprehensive metabolic panel (09/11/2024 5:34 AM EDT) Only the most recent of3 resultswithin the time period is included. Sodium 139 133 - 145 mmol/L LAB CHEMISTRY METHOD 09/11/2024 11:19 AM [facility] Potassium 4.3 3.5 - 5.5 mmol/L LAB CHEMISTRY METHOD 09/11/2024 11:19 AM [facility] Chloride 103 96 - 110 mmol/L LAB CHEMISTRY METHOD 09/11/2024 11:19 AM [facility] CO2 27 21 - 32 mmol/L LAB CHEMISTRY METHOD 09/11/2024 11:19 AM [facility] Anion Gap 9 3 - 11 LAB CHEMISTRY METHOD 09/11/2024 11:19 AM [facility] Glucose 73 70 - 100 mg/dL LAB CHEMISTRY METHOD 09/11/2024 11:19 AM [facility] BUN 8 5 - 25 mg/dL LAB CHEMISTRY METHOD 09/11/2024 11:19 AM [facility] Creatinine 0.48(L) 0.50 - 1.10 mg/dL LAB CHEMISTRY METHOD 09/11/2024 11:19 AM [facility] eGFR 94 >=60 mL/min/1. 73m2 LAB CHEMISTRY METHOD 09/11/2024 11:19 AM [facility] Comment:Calculation based on the Chronic Kidney Disease Epidemiology Collaboration (CKD-EPI) equation refit without adjustment for race. BUN/Creatinine Ratio 16.7 LAB CHEMISTRY METHOD 09/11/2024 11:19 AM [facility] Calcium 8.4(L) 8.5 - 10.5 mg/dL LAB CHEMISTRY METHOD 09/11/2024 11:19 AM [facility] AST (SGOT) 15 10 - 42 unit/L LAB CHEMISTRY METHOD 09/11/2024 11:19 AM EDT [facility] ALT (SGPT) 44 10 - 60 unit/L LAB CHEMISTRY METHOD 09/11/2024 11:19 AM EDT [facility] Alkaline Phosphatase 87 42 - 121 unit/L LAB CHEMISTRY METHOD 09/11/2024 11:19 AM EDT [facility] Total Protein 5.9(L) 6.0 - 8.0 g/dL LAB CHEMISTRY METHOD 09/11/2024 11:19 AM EDT [facility] Albumin 3.1(L) 3.2 - 5.0 g/dL LAB CHEMISTRY METHOD 09/11/2024 11:19 AM EDT [facility] Total Bilirubin 0.2 0.0 - 1.4 mg/dL LAB CHEMISTRY METHOD 09/11/2024 11:19 AM EDT [facility] Blood Venous blood specimen / Unknown Venipuncture / Unknown 09/11/2024 5:34 AM EDT 09/11/2024 10:10 AM EDT us Kristin RACHEL LAB BLOOD ORDERABLES Final Re sult [facility] [address] [place] [address], from Last 3 Months Insurance [facility] MEDICARE Care Teams Software Security Consultant Relationship Specialty Start Date End Date Marianna Amador MD [address] [place] [address] PCP - General Internal Medicine 10/29/11
== END 2024-12-05 13:24 | disposition home or self-care (01) ==
LOC: HO.HOS 12:47
DX: S52.201A Unspecified fracture of shaft of right ulna, initial encounter for closed fracture (principal)
CPT/HCPCS: 99213

== ENCOUNTER → 2024-12-05 12:46 | Outpatient (BNVA) | payer MEDICARE, SELFPAY | DX: S52.201D Unspecified fracture of shaft of right ulna, subsequent encounter for closed fracture with routine healing (principal) | CPT/HCPCS: 99212 ==